=== PATIENT | female | born 1950 | race Caucasian/White ===

== ENCOUNTER → 2017-10-17 15:14 | Outpatient (CLI) | payer MEDICARE, OTHER, SELFPAY ==
--- NOTE | 2017-10-17 15:32 | XR_ITS ---
XR chest 2V HISTORY: Shortness of breath, weakness, congestion ITS.REASON: BRONCHITIS ORDERING PHYSICIAN: Lauren Nguyen PATIENT AGE: 67 years COMPARISON: 11/09/2015 FINDINGS: Right IJ Mediport catheter is present.. Normal heart size. Multiple areas of vertebral plasty in the lower thoracic and upper lumbar spine. Scattered nodular opacities are present in both upper and lower lobes including a 10 mm nodular opacity in the right upper lobe overlying the first rib and a 12 mm nodular opacity overlying the left upper lobe at the third rib region possible metastatic disease. Consider chest CT for further evaluation. Prior vertebroplasty at T12, T11, T10, T9, and L2 with wedge compression changes involving these vertebral bodies. There is a left humeral prosthesis present. IMPRESSION: 1. Scattered bilateral nodular opacities. May be related to metastatic disease. Recommend chest CT for further evaluation. 2. Multiple wedge compression changes of the thoracic lumbar spine status post prior vertebral plasty.
== END ==
PROVIDERS: PCP Nurse Practitioner Family; Visit Provider Nurse Practitioner Family
DX: J40 Bronchitis, not specified as acute or chronic (principal)
CPT/HCPCS: 71046

== ENCOUNTER → 2018-01-07 10:19 | Outpatient (CLI) | payer MEDICARE, OTHER, SELFPAY ==
--- NOTE | 2018-01-07 10:26 | XR_ITS ---
XR chest 2V HISTORY: Cough, multiple myeloma ITS.REASON: CHRONIC BRONCHITIS ORDERING PHYSICIAN: Nikki Alvarez MD PATIENT AGE: 67 years COMPARISON: 10/08/2017 FINDINGS: Unremarkable cardiovascular structures. Right IJ Mediport catheter remains in place. Nodular regions once again noted in the right upper lobe, left upper lobe, and left lower lung zone. This could be due to healing rib fractures or pulmonary metastasis may be better evaluated with CT. Multiple wedge compression changes once again noted involving the thoracic and lumbar spine status post multilevel kyphoplasty. No lobar consolidation or collapse. Prior left shoulder replacement. IMPRESSION: Overall no change from 10/17/2017 in the multiple bilateral nodular opacities and multiple kyphoplasty sites. No acute infiltrate evident.
== END ==
PROVIDERS: PCP Family Medicine; Visit Provider Family Medicine
DX: J42 Unspecified chronic bronchitis (principal)
CPT/HCPCS: 71046

== ENCOUNTER 2018-04-24 14:00 | Outpatient (RCR) | payer MEDICARE, OTHER, SELFPAY | END 2018-04-24 14:01 | disposition home or self-care (01) | LOC: PT 14:00 | PROVIDERS: Visit Provider Orthopaedic Surgery | DX: S42.402A Unspecified fracture of lower end of left humerus, initial encounter for closed fracture (principal) | CPT/HCPCS: 97110; 97163 ==

== ENCOUNTER → 2020-01-12 15:02 | Outpatient (CLI) | payer MEDICARE, OTHER, SELFPAY ==
[2020-01-12 15:06] LABS: Microscopic, Urine URINE MICROSCOPIC (MICROSCOPIC)
[2020-01-12 15:32] LABS: Appearance,Urine CLEAR (Clear); Bilirubin,Urine Negative (Negative); Blood, Urine Negative (Negative); Color,Urine YELLOW (Yellow); Glucose,Urine (UA) Negative (Negative); Ketones,Urine Negative (Negative); Leukocyte Esterase,Urine Negative (Negative); Nitrate,Urine Negative (Negative); Protein,Urine Negative (Negative); Specific Gravity, Urine 1.015 (1.005-1.030); Urobilinogen,Urine 0.2 EU/dl (0.2)
[2020-01-12 19:14] LABS: Bacteria,Urine Trace /lpf
== END ==
PROVIDERS: Visit Provider Family Medicine
DX: N39.0 Urinary tract infection, site not specified (principal); C90.01 Multiple myeloma in remission
CPT/HCPCS: 81001; 87086

== ENCOUNTER → 2023-01-11 13:21 | Outpatient (CLI) | payer MEDICARE, OTHER, SELFPAY ==
--- NOTE | 2023-01-11 13:52 | CT_ITS ---
FINAL REPORT TECHNIQUE: Axial images were obtained through the chest without contrast. CLINICAL HISTORY: sob, cough COMPARISON: None FINDINGS: There is a catheter present with its tip in the superior vena cava. There is streak artifact in some images secondary to a left shoulder prosthesis. There is a calcified granuloma in the posterior aspect of the left lower lobe. There is an ill-defined posterior right lower lobe airspace opacity present, best seen on image 24 of sequence 2, of uncertain significance. On high resolution images there is no evidence of bronchiectasis. The heart size is normal. There is no pericardial or pleural effusion. Limited images of the upper abdomen are unremarkable. No suspicious infiltrate or nodule identified. Mild scarring is present in the lung bases. IMPRESSION: No acute process. Reviewed, Interpreted and Dictated by Kris Santana MD Transcribed by Sonia Saldana Authenticated and [facility]
== END ==
PROVIDERS: PCP Family Medicine; Visit Provider Internal Medicine Pulmonary Disease
DX: R06.02 Shortness of breath (principal); J84.9 Interstitial pulmonary disease, unspecified
CPT/HCPCS: 71250; 93306; 94060; 94618; 94726; 94729

== ENCOUNTER → 2023-01-16 10:41 | Outpatient (CLI) | payer MEDICARE, OTHER, SELFPAY ==
[2023-01-16 11:11] LABS: Basophils # 0.1 K/mm3 (0-0.2); Basophils % 1.6 % (0.1-2.0); Eosinophils # 0.3 K/mm3 (0.0-0.4); Eosinophils % 4.5 % (0.1-12.0); Hematocrit 38.9 % (37.0-47.0); Hemoglobin 12.2 g/dL (12.2-16.2); Lymphocytes # 1.5 K/mm3 (0.7-4.5); Lymphocytes % 24.4 % (10-50); Mean Corpuscular HGB Conc 31.3 g/dL (31.8-35.4); Mean Corpuscular Hemoglobin 26.2 pg (27.0-31.2); Mean Corpuscular Volume 83.6 fl (81-99); Mean Platelet Volume 7.7 fl (7.4-10.4); Monocytes # 0.4 K/mm3 (0.1-1.0); Monocytes % 7.4 % (1.7-9.3); Neutrophils # 3.7 K/mm3 (1.8-7.8); Platelet Count 419 K/mm3 (142-424); Red Blood Count 4.66 M/mm3 (4.20-5.40); Red Cell Distribution Width 14.9 % (11.5-17.5); White Blood Count 5.9 K/mm3 (4.8-10.8)
[2023-01-18 16:13] LABS: Strongyloides IgG Antibody Negative (Negative)
[2023-01-22 16:05] LABS: D001-IgE D pteronyssinus <0.10 kU/L (Class 0); D002-IgE D farinae <0.10 kU/L (Class 0); E001-IgE Cat Dander <0.10 kU/L (Class 0); E005-IgE Dog Dander <0.10 kU/L (Class 0); E072-IgE Mouse Urine <0.10 kU/L (Class 0); G002-IgE Bermuda Grass <0.10 kU/L (Class 0); G006-IgE Timothy Grass <0.10 kU/L (Class 0); I006-IgE Cockroach, German <0.10 kU/L (Class 0); Immunoglobulin E, Total <2 IU/mL (6-495); M001-IgE Penicillium chrysogen <0.10 kU/L (Class 0); M002-IgE Cladosporium herbarum <0.10 kU/L (Class 0); M003-IgE Aspergillus fumigatus <0.10 kU/L (Class 0); M006-IgE Alternaria alternata <0.10 kU/L (Class 0); T001-IgE Maple/Box Elder <0.10 kU/L (Class 0); T003-IgE Common Silver Birch <0.10 kU/L (Class 0); T006-IgE Cedar, Mountain <0.10 kU/L (Class 0); T007-IgE Oak, White <0.10 kU/L (Class 0); T008-IgE Elm, American <0.10 kU/L (Class 0); T010-IgE Walnut <0.10 kU/L (Class 0); T011-IgE Maple Leaf Sycamore <0.10 kU/L (Class 0); T014-IgE Cottonwood <0.10 kU/L (Class 0); T015-IgE Ash, White <0.10 kU/L (Class 0); T022-IgE Pecan, Hickory <0.10 kU/L (Class 0); T070-IgE White Mulberry <0.10 kU/L (Class 0); W001-IgE Ragweed, Short <0.10 kU/L (Class 0); W011-IgE Thistle, Russian <0.10 kU/L (Class 0); W014-IgE Pigweed, Common <0.10 kU/L (Class 0); W018-IgE Sheep Sorrel <0.10 kU/L (Class 0)
[2023-03-04 09:21] LABS: Aspergillus fumigatus IgG 14.3
== END ==
PROVIDERS: PCP Family Medicine; Visit Provider Internal Medicine Pulmonary Disease
DX: J30.9 Allergic rhinitis, unspecified (principal); D72.19 Other eosinophilia
CPT/HCPCS: 36415; 82785; 85025; 86003; 86606; 86682

== ENCOUNTER → 2023-02-25 15:56 | Outpatient (CLI) | payer MEDICARE, OTHER, SELFPAY ==
--- NOTE | 2023-02-25 16:04 | CA_ITS ---
FINAL REPORT TECHNIQUE: Color Doppler, duplex Doppler and compression sonography of the left lower extremity deep venous systems was performed. CLINICAL HISTORY: Patient states her LLE has pain and edema x 1 day. Denies trauma. 81 mg ASA daily. Obesity. FINDINGS: There is no evidence of deep venous thrombosis from the level of the groin to the calf. The peroneal vein was not visualized due to body habitus and edema. The remaining veins are patent and compressible. IMPRESSION: No evidence of deep venous thrombosis left lower extremity. Reviewed, Interpreted and Dictated by Laci Luna III, MD Transcribed by Abby Harris Authenticated and [facility]
== END ==
PROVIDERS: PCP Family Medicine; Visit Provider Family Medicine
DX: R22.42 Localized swelling, mass and lump, left lower limb (principal)
CPT/HCPCS: 93971

== ENCOUNTER → 2023-05-15 11:55 | Outpatient (CLI) | payer MEDICARE, OTHER, SELFPAY ==
--- NOTE | 2023-05-15 12:01 | XR_ITS ---
FINAL REPORT CLINICAL HISTORY: PNM congestion some chest pain cough since 04/24 COMPARISON: 01/07/2018 FINDINGS: Two views of the chest were obtained. Left-sided chest port is present. The heart size and pulmonary vascularity are within normal limits. The mediastinum is normal. No acute pulmonary abnormality is identified. There is no pneumothorax. There is kyphoplasty at multiple levels in the thoracolumbar spine. Left shoulder arthroplasty is noted. IMPRESSION: No active cardiopulmonary disease. Reviewed, Interpreted and Dictated by Laci Luna III, MD Transcribed by Noelle Dailey Authenticated and [facility]
== END ==
PROVIDERS: PCP Family Medicine; Visit Provider Internal Medicine Pulmonary Disease
DX: R06.02 Shortness of breath (principal); B96.5 Pseudomonas (aeruginosa) (mallei) (pseudomallei) as the cause of diseases classified elsewhere
CPT/HCPCS: 71046; 87070; 87205

== ENCOUNTER → 2023-06-04 12:31 | Outpatient (CLI) | payer MEDICARE, OTHER, SELFPAY ==
--- NOTE | 2023-06-04 12:35 | XR_ITS ---
FINAL REPORT TECHNIQUE: Chest PA & Lateral CLINICAL HISTORY: SOB COMPARISON: 05/15/2023 FINDINGS: 2 views of the chest were performed. Mild cardiomegaly is present. The left sided catheter tip is in the superior vena cava unchanged from the prior exam. The mediastinum is within normal limits. There is no acute cardiopulmonary process. There are no pleural effusions. There is no pneumothorax. The bony thorax appears intact. A left shoulder prosthesis remains present. There is evidence of multiple kyphoplasties in the mid and lower thoracic spine. IMPRESSION: No acute cardiopulmonary process. Reviewed, Interpreted and Dictated by Kris Santana MD Transcribed by Sonia Saldana Authenticated and [facility]
== END ==
PROVIDERS: PCP Family Medicine; Visit Provider Internal Medicine Pulmonary Disease
DX: R06.02 Shortness of breath (principal)
CPT/HCPCS: 71046

== ENCOUNTER → 2023-06-05 14:42 | Outpatient (CLI) | payer MEDICARE, OTHER, SELFPAY | PROVIDERS: Visit Provider Internal Medicine Pulmonary Disease | DX: B96.89 Other specified bacterial agents as the cause of diseases classified elsewhere (principal); B37.9 Candidiasis, unspecified; J45.50 Severe persistent asthma, uncomplicated; R06.02 Shortness of breath; R05.3 Chronic cough | CPT/HCPCS: 87070; 87205 ==

== ENCOUNTER → 2023-06-06 06:44 | Outpatient (CLI) | payer MEDICARE, OTHER, SELFPAY ==
--- NOTE | 2023-06-06 06:47 | CT_ITS ---
FINAL REPORT TECHNIQUE: Axial images were obtained through the chest without contrast. CLINICAL HISTORY: non-resolving PNM COMPARISON: 01/11/2023 FINDINGS: Left upper anterior chest port with the tip in the SVC. There is streak artifact from left shoulder prosthesis. The heart size is normal. There is no pericardial or pleural effusion. There is mild pleural and parenchymal scarring in the medial lung bases. The lungs are clear. No suspicious infiltrate or nodule identified. Limited images of the upper abdomen are unremarkable. IMPRESSION: Mild pleural-parenchymal scarring in the medial lung bases. Lungs are otherwise clear. Reviewed, Interpreted and Dictated by Kris Santana MD Transcribed by Noelle Dailey Authenticated and . [facility]
== END ==
PROVIDERS: PCP Family Medicine; Visit Provider Internal Medicine Pulmonary Disease
DX: R91.8 Other nonspecific abnormal finding of lung field (principal)
CPT/HCPCS: 71250

== ENCOUNTER 2024-12-08 09:20 | Outpatient (CLI) | payer MEDICARE, OTHER, SELFPAY ==
--- OUTSIDE RECORDS SUMMARY | 2024-12-08 09:22 | XMS_ITS | Continuity of Care Document ---
Author Organization [place] [facility] [place] Address [address] [place] [address] Care Team Providers Care Skin Diving Teacher Name Role Phone THAD CANALES Primary Care Provider Assessment Encounter Date Assessment Date Assessment LastModified by Organization Details LastModified Time 11/11/2024 11/11/2024 Plan for imaging to assess for acute fracture, plan for walking shoe, pt has boot at home but may tolerate short boot/shoe better due to chronic swelling in her legs. Avoid walking barefoot, monitor for skin changes/incre ase in redness. Check uric acid to rule out gout. Consider podiatiry pending sx and imaging. Not available 11/11/2024 15:01:13 Plan of Treatment Reminders Order Date Submit Date Provider Last Modified By Organization Details Last Modified Time Details Appointments FOLLOW UP 30 2024 09:00A M Fernandez Jordan MD Not available Not available Not available Establish ed Visit 15 min 2024 09:00A Erwin COULTER NP Not available Not available Not available Lab vitamin D, 25-hydrox y, total, serum 2024 025 JOSE [facility] [address] [place], [address], 11/12/2024 07:33:58 uric acid, serum or plasma 2024 025 DAVIS [facility] ([place] [address] [place], [address], 11/12/2024 07:33:59 Referral None recorded. Procedures None recorded. Surgeries None recorded. Imaging XR, foot, 3 or more view 2024 025 rory 19 [facility] ([facility]), [address], [place], [address], 11/25/2024 08:30:03 Medication Orders None recorded. Patient TargetsNo targets recorded. Patient InstructionsNo instructions recorded. Reason for Referral None Reported. Results Created Date Observation Date Name Description Value Unit Range Abnormal Flag Note LastModifiedBy Organization Detail LastModifiedTime 11/12/19 25 11/11/2024 XR, foot, 3 or more view No observ ation record ed. In-House Imaging - [facility] [address], [place], [address], 11/12/2024 08:32:53 Result Notes None recorded. Problems Name Problem SNOMED Code Status Onset Date Resolution Date Notes Provider Name and Address Organization Details Recorded Time Pain in right foot 4020224476875 07 Active 2024 ANAHY LOONEY [facility], [facility] & [place] 5 10:15:14 Chronic intractabl e migraine without aura 0357995437777 05 Active 2021 Not Available [facility] 4 05:24:21 Restless legs 66753188 Active Not Available [facility] 4 05:24:21 Compressio n fracture Active Not Available [facility] 4 05:24:21 Exacerbati on of moderate persistent asthma 070951598 Active Not Available [facility] 4 05:24:22 Deficiency of macronutri ents 641757914 Active Not Available [facility] 4 05:24:21 Multiple myeloma in remission 69187017 Active Not Available [facility] 4 05:24:22 Nocturia 134788909 Active Not Available [facility] 4 05:24:21 Phleboscle rosis 528326882 Active Not Available [facility] 4 05:24:21 Increased frequency of urination 427593013 Active Not Available [facility] 4 05:24:21 Selective immunoglob ulin E deficiency 289193598 Active Not Available [facility] 4 05:24:21 Gallstone 731707051 Active Not Available [facility] 4 05:24:21 Chronic kidney disease stage 3 506414718 Active Not Available [facility] 4 05:24:22 Neuropathy 534453785 Active Not Available [facility] 4 05:24:22 Asthma 284656526 Active Not Available [facility] 4 05:24:21 Unsteady when walking 46325026 Active Not Available [facility] 4 05:24:21 Hypophosph atemia 8962044 Active Not Available [facility] 4 05:24:22 Chronic pain 68992868 Active Not Available [facility] 4 05:24:22 Allergic rhinitis caused by pollen 53035661 Active Not Available [facility] 4 05:24:21 Incisional hernia 319421681 Active Not Available [facility] 4 05:24:21 Bronchitis 39614063 Active Not Available [facility] 4 05:24:21 Pain in back following surgical procedure 024748937 Active Not Available [facility] 4 05:24:21 Lymphedema 174952351 Active Not Available [facility] 4 05:24:21 Immunoglob ulin G deficiency 3218888518953 6 Active Not Available [facility] 4 05:24:21 Mixed hyperlipid emia 053907012 Active Not Available [facility] 4 05:24:21 Urge incontinen ce of urine 11225076 Active Not Available [facility] 4 05:24:22 Rectovagin al fistula 50940565 Active Not Available [facility] 4 05:24:22 Dysphagia 18174555 Active Not Available [facility] 4 05:24:22 Exacerbati on of severe persistent asthma 789989058 Active Not Available [facility] 4 05:24:22 Vitamin D deficiency 79764611 Active Not Available [facility] 4 05:24:22 Disorder of cardiovasc ular system 82319403 Active Not Available [facility] 4 05:24:22 Cholelithi asis without obstructio n 33910571 Active Not Available [facility] 4 05:24:22 Inflammato ry disease of mucous membrane 51201393 Active Not Available [facility] 4 05:24:22 Chronic bronchitis 44449615 Active Not Available [facility] 4 05:24:22 Respirator y tract infection 726771444 Active Not Available [facility] 4 05:24:21 Colostomy present 090785337 Active Not Available [facility] 4 05:24:21 Environmen krystal allergy 044983588 Active Not Available [facility] 4 05:24:22 Colovagina l fistula 400877268 Active Not Available [facility] 4 05:24:21 Total urinary incontinen ce 506673138 Active Not Available [facility] 4 05:24:21 Multiple myeloma 596750392 Active Not Available [facility] 4 05:24:21 Edema 571462850 Active Not Available [facility] 4 05:24:21 Vesicocoli c fistula 01043193 Active Not Available [facility] 4 05:24:21 Hypocalcem ia 6495022 Active Not Available [facility] 4 05:24:22 Tension-ty pe headache 527741191 Active Not Available [facility] 4 05:24:22 Gastroesop hageal reflux disease 521297457 Active Not Available [facility] 4 05:24:21 Uncomplica sacha severe persistent asthma 991233331 Active Not Available [facility] 4 05:24:22 Acute exacerbati on of chronic obstructiv e pulmonary disease 355211104 Active Not Available [facility] 4 05:24:21 Chronic renal failure 76888767 Active Not Available [facility] 4 05:24:22 Hyperlipid emia 17963311 Active Not Available [facility] 4 05:24:22 Hypokalemi a 86522394 Active Not Available [facility] 4 05:24:22 Recurrent urinary tract infection 712617484 Active Not Available [facility] 4 05:24:21 Chronic kidney disease 558279633 Active Not Available [facility] 4 05:24:22 Screening for malignant neoplasm of breast Active Not Available [facility] 4 05:24:21 Right bundle branch block 37471417 Active Not Available [facility] 4 05:24:22 Bilateral hand weakness 1905673289893 9104 Active 2022 Not Available [facility] 4 05:24:21 Laryngopha ryngeal reflux 426134893 Active 2022 Not Available [facility] 4 05:24:22 Severe persistent asthma 516062806 Active 2022 Not Available [facility] 4 05:24:22 Chronic cough 51963811 Active 2022 Not Available [facility] 4 05:24:22 Acute nontraumat ic kidney injury 0671040266486 03 Active Not Available [facility] 4 05:24:21 Nausea and vomiting 73225738 Active Not Available [facility] 4 05:24:21 Patient immunosupp ressed 979351106 Active Not Available [facility] 4 05:24:22 Community acquired pneumonia 916134197 Active Not Available [facility] 4 05:24:22 Urinary tract infectious disease 69221050 Active Not Available [facility] 4 05:24:22 Obstructiv e sleep apnea syndrome 18737077 Active 2023 Olivia Meyer, DO [address] , [place], [address] , [facility] & [place] 4 09:29:47 Notes:Some problems listed i n Documents: #[id number], #[id number] could not be added to this patient's chart. Please review these documents and add these problems to the patient's chart manually as needed. Problem Notes None recorded. Procedures Surgical History Date Name Laterality Status Provider Name and Address Organization Details Recorded Time 11/04 esophagogastroduodenoscopy completed Alanna Miller [place] [facility] [place] [facility] [place] 5 14:46:48 11/04 Colonoscopy completed Karine Rothamer [place] [facility] [place] [facility] [place] 5 14:46:57 05/18 completed Madison Wills [place] [facility] [place] [facility] [place] 5 08:22:37 05/18 Most Recent Mammogram completed Karine [place] [facility] [place] [facility] [place] 5 10:16:13 02/08 polysomnography completed Karine [place] [facility] [place] [facility] [place] 5 10:16:45 12/05 Most Recent Bone Density completed Karine [place]amer [place] [facility] [place] [facility] [place] 5 10:16:10 02/20 Cryosurgery completed Thad Canales MD [address], [place], [address] , [place] [facility] [place] [facility] [place] 3 11:13:28 01/23 cholecystectomy completed Sonal Moctezuma [place] [facility] [place] [facility] [place] 3 08:08:43 01/23 repair of incisional hernia completed Yaa [place] [facility] [place] [facility] [place] 3 08:08:21 07/22 Cholecystectomy completed Madison Wills [place] [facility] [place] [facility] [place] 5 08:22:47 12/15 Colonoscopy completed Karine Schaeferamer [place] [facility] [place] [facility] [place] 5 10:23:58 12/05 Date of Last Colonoscopy completed Madison Wills [place] [facility] [place] [facility] [place] 5 08:22:37 05/03 procedure on knee completed Olivia Meyer DO [address], [place], [address] , [place] [facility] [place] [facility] [place] 3 08:57:05 07/22 Other completed Madison Wills [place] [facility] [place] [facility] [place] 5 08:22:47 07/06 insertion of implantable venous access port completed DO [address], [place], [address] , [place] [facility] [place] [facility] [place] 3 08:58:24 07/06 removal of implantable venous access port completed DO [address], [place], [address] , [place] [facility] [place] [facility] [place] 3 08:58:40 05/22 excision of part of colon and excision of terminal ileum with ileocolic anastomosis completed DO [address], [place], [address] , [place] [facility] [place] [facility] [place] 3 08:56:32 12/21 repair of rectovaginal fistula completed DO [address], [place], [address] , [place] [facility] & [place] 3 08:55:42 07/22 kyphoplasty of fracture of spine using fluoroscopic guidance completed DO [address], [place], [address] , [place] [facility] [place] [facility] [place] 3 10:34:38 07/22 Other completed Madison Wills [place] [facility] [place] [facility] [place] 5 08:22:47 02/19 bronchoscopy completed DO [address], [place], [address] , [place] [facility] [place] [facility] [place] 3 08:57:20 02/17 esophagogastroduodenoscopy completed Alanna Miller [place] [facility] & [place] 5 10:21:54 07/22 procedure on elbow completed Olivia Meyer DO [address], [place], [address] , [place] [facility] [place] [facility] [place] 3 08:55:21 01/19 bone marrow biopsy, needle or trocar completed Karineabel Joy [place] [facility] [place] [facility] [place] 5 10:22:33 07/22 insertion of implantable venous access port completed Olivia Meyer DO [address], [place], [address] , [place] [facility] [place] [facility] [place] 3 08:58:11 07/22 repair of shoulder completed Sonal Rhianna [place] [facility] [place] [facility] [place] 3 08:06:30 07/22 Knee Replacement completed Sonal Rhianna [place] [facility] [place] [facility] [place] 3 08:05:35 07/22 Knee Replacement completed Sonal Rhianna [place] [facility] [place] [facility] [place] 3 08:05:25 07/22 procedure on wrist completed Sonal [place]ianna [place] [facility] [place] [facility] [place] 3 08:05:02 07/22 Hysterectomy completed Sonal [place]ianna [place] [facility] [place] [facility] [place] 3 08:04:23 07/22 lumpectomy of breast completed Sonal [place]ianna [place] [facility] [place] [facility] [place] 3 08:04:05 hernia repair completed Delmi Weinstein [place] [facility] [place] 3 11:09:01 section completed Sonal [place]ianna [place] [facility] [place] 3 08:03:33 Colostomy completed Sonal Rhianna [place] [facility] [place] [facility] [place] 3 08:11:02 Imaging Results None recorded. Procedure Notes None recorded. Medical Equipment None Reported. Allergies Allergen ID Allergen Name Allergen Category Reaction Reaction Severity Criticality Documentation Date Start Date Code Code System Note Provider Name and Address Organization Details Recorded Time 17447 Substance with sulfonami de structure and antibacte rial mechanism of action (substanc e) medicatio n dizziness hives rash Not available Not available Not available Not available 04/11/2022 [id number] SNOMED criti calit y - mediu m Karine Joy null, [place] [facility] [place] [facility] [place] 3 07:13:57 2419 meperidin e medicatio n hives other Not available Not available low 03/29/2022 6754 RxNorm also rose d Demer ol; hypot ensio n, Karine Joy null, [place] [facility] [place] [facility] [place] 5 10:29:07 69116 honey bee venom environme nt Not available Not available low 05/01/2023 60068 7 RxNorm Karine Joy null, [place] [facility] [place] [facility] [place] 4 10:09:38 Medications Name Sig Start Date Stop Date Status Note LastModified by Organization Details LastModified Time Magic Mouthwash w/ Nystatin 5-10 mL doses every four to six hours 09/18 completed Not Available Not Available Not Available Magic Mouthwash 5-10 mL doses every four to six hours 2023 active Not Available Not Available Not Avai lable Magic Mouthwash 5-10 mL every 4-6 hours as needed for mouth pain 12/12 completed Not Available Not Available Not Available Magic Mouthwash 5-10 mL doses every four to six hours 09/02 completed Not Available Not Available Not Available Magic Mouthwash Take 5-10ml every 4 to 6 hours as needed. 2022 active Not Available Not Available Not Avai lable Magic Mouthwash 5-10 mL doses every four to six hours 2022 active Not Available Not Available Not Avai lable Magic Mouthwash Shake well before using. Swish, gargle, and spit 1 to 2 teaspoons every 4 to 6 hours, as needed for pain 04/24 completed Not Available Not Available Not Available Magic Mouthwash 5-10 mL doses every four to six hours 01/27 completed Not Available Not Available Not Available Magic Mouthwash Take 5-10 ml every 4 to 6 hours as needed 2022 active Not Available Not Available Not Avai lable Magic Mouthwash Shake well before using. Swish, gargle, and spit 1 to 2 teaspoons every 4 to 6 hours, as needed for pain 2022 active Not Available Not Available Not Avai lable amoxicillin 500 mg capsule TAKE 1 CAPSULE BY MOUTH THREE TIMES DAILY 08/05 completed Not Available Not Available Not Available fluconazole 100 mg tablet TAKE 1 TABLET BY MOUTH ONCE DAILY DIRECTED FOR 2 DAYS 10/01 completed Not Available Not Available Not Available methocarbam ol 500 mg tablet TAKE 1 TABLET BY MOUTH EVERY 6 HOURS NEEDED FOR MUSCLE SPASM FOR PAIN 08/29 completed Not Available Not Available Not Available acetylcyste ine 200 mg/mL (20 %) solution INHALE 1 ML EVERY DAY DIRECTED active Not Available Not Available No t Available albuterol sulfate 0.63 mg/3 mL solution for nebulizatio n USE 1 VIAL IN NEBULIZER EVERY 4 HOURS NEEDED active Not Available Not Available No t Available nystatin 100,000 unit/mL oral suspension Take 5 mL 4 times a day by oral route for 14 days. 04/27 completed Not Available Not Available Not Available venlafaxine ER 37.5 mg capsule,ext ended release 24 hr TAKE 1 CAPSULE BY MOUTH ONCE DAILY DIRECTED FOR 30 DAYS active Not Available Not Available No t Available prednisone 10 mg tablet TAKE 2 TABLETS BY MOUTH DAILY FOR THE NEXT FEW WEEKS UNTIL ASTHMA STABLE AND THEN WEAN DOWN TO 10MG AND HOLD ON THIS DOSE 05/22 completed Not Available Not Available Not Available doxycycline hyclate 100 mg capsule TAKE 1 CAPSULE BY MOUTH TWICE DAILY 08/07 completed Not Available Not Available Not Available metoclopram julienne 5 mg/mL injection solution 10 mg by injection route. 06/20 completed Not Available Not Available Not Available ropinirole 1 mg tablet Take 1 tablet twice a day by oral route for 90 days. active Not Available Not Available No t Available ipratropium 0.5 mg-albutero l 3 mg (2.5 mg base)/3 mL nebulizatio n soln USE 3 ML IN NEBULIZER EVERY 6 HOURS NEEDED FOR SHORTNESS OF BREATH FOR WHEEZING active Not Available Not Available No t Available tizanidine 2 mg tablet 08/05 completed Not Available Not Available Not Available albuterol sulfate 2.5 mg/3 mL (0.083 %) solution for nebulizatio n INHALE 1 VIAL VIA NEBULIZER EVERY 4 HOURS 01/05 completed Not Available Not Available Not Available hydrocortis one-pramoxi ne 2.5 %-1 % rectal cream active Not Available Not Available Not Available loperamide 2 mg capsule TAKE 1 CAPSULE BY MOUTH TWICE DAILY 08/05 completed Not Available Not Available Not Available cetirizine 10 mg tablet 10 mg by oral route. active Not Available Not Available No t Available azithromyci n 250 mg tablet TAKE 2 TABLETS BY MOUTH ON DAY 1, AND THEN TAKE 1 TABLET BY MOUTH ONCE A DAY ON DAY 2 THROUGH DAY 5 05/16 completed Not Available Not Available Not Available Lidocaine Viscous 2 % mucosal solution MIX EQUAL PARTS OF MAALOX, BENDARYL, AND LIDOCAINE AND APPLY 5 TO 10 ML EVERY 4 TO 6 HOURS NEEDED 02/13 completed Not Available Not Available Not Available benzonatate 200 mg capsule TAKE 1 CAPSULE BY MOUTH EVERY 8 HOURS NEEDED FOR 7 DAYS 08/29 completed Not Available Not Available Not Available sucralfate 100 mg/mL oral suspension Take 10 mL 4 times a day by oral route as directed for 30 days. 08/29 completed Not Available Not Available Not Available ondansetron HCl 8 mg tablet TAKE 1 TABLET BY MOUTH TWICE DAILY active Not Available Not Available No t Available sucralfate 1 gram tablet TAKE 1 TABLET BY MOUTH 4 TIMES DAILY 2024 active Not Available Not Available Not Avai lable ondansetron HCl 4 mg tablet 09/18 completed Not Available Not Available Not Available famotidine 40 mg tablet Take 1 tablet every day by oral route for 90 days. active Not Available Not Available No t Available prednisone 20 mg tablet Take 2 tablets every day by oral route as directed for 3 days. 12/12 completed Not Available Not Available Not Available Compazine 10 mg tablet Take 1 tablet every 8 hours by oral route for 30 days. 09/02 completed Not Available Not Available Not Available fluorouraci l 5 % topical cream 08/05 completed Not Available Not Available Not Available prednisone 5 mg tablet TAKE 12 TABLETS BY MOUTH ONCE DAILY FOR 5 DAYS THEN TAPER BY 5MG (1 TAB) EVERY 2 DAYS TILL PATIENT GET TO 10MG AND THEN HOLD DIRECTED 05/09 completed Not Available Not Available Not Available sodium chloride 0.45 % intravenous solution 1000 mL by intraven. route. 06/22 completed Not Available Not Available Not Available Pyridium 200 mg tablet Take 1 tablet 3 times a day by oral route for 2 days. 08/29 completed Not Available Not Available Not Available clindamycin HCl 150 mg capsule TAKE 1 CAPSULE BY MOUTH 4 TIMES DAILY FOR 7 DAYS 07/02 completed Not Available Not Available Not Available Diflucan 150 mg tablet Take 1 tablet every day by oral route as directed for 2 days. 09/18 completed Not Available Not Available Not Available cyanocobala min (vit B-12) 1,000 mcg tablet Take 1 tablet every day by oral route. active Not Available Not Available No t Available penicillin V potassium 500 mg tablet 01/05 completed Not Available Not Available Not Available meclizine 12.5 mg tablet TAKE 2 TABLETS BY MOUTH THREE TIMES DAILY NEEDED 08/05 completed Not Available Not Available Not Available Space Chamber USE DIRECTED active Not Available Not Available No t Available cephalexin HCl 500 mg tablet Take 1 {tablet} twice a day by oral route. 06/11 completed Not Available Not Available Not Available aspirin 81 mg tablet,félix yed release 81 mg by oral route. 06/22 completed Not Available Not Available Not Available acetaminoph en 500 mg tablet 1000 mg by oral route. 06/22 completed Not Available Not Available Not Available butalbital- acetaminoph en-caffeine 50 mg-325 mg-40 mg tablet TAKE 1 TABLET BY MOUTH EVERY 4 TO 6 HOURS NEEDED FOR 30 DAYS 09/18 completed Not Available Not Available Not Available ondansetron 8 mg disintegrat ing tablet DISSOLVE 1 TABLET IN MOUTH EVERY 8 TO 12 HOURS NEEDED 06/11 completed Not Available Not Available Not Available dronabinol 2.5 mg capsule Take 2.5 mg by oral route. 09/02 completed Not Available Not Available Not Available betamethaso ne acetate and sodium phos 6 mg/mL suspension for injection Take 9 mg every day by injection route as directed for 1 day. 05/22 completed Not Available Not Available Not Available calcium 600 mg (as calcium carbonate 1,500 mg) tablet Take 1 {tablet_w ith_meals } by oral route. 10/03 completed Not Available Not Available Not Available ceftriaxone 1 gram solution for injection Take 1 g by injection route. 01/05 completed Not Available Not Available Not Available methenamine hippurate 1 gram tablet 07/30 completed Not Available Not Available Not Available hydrocortis one-pramoxi ne 2.5 %-1 % topical cream Apply 1 applicati on 3 times a day by topical route for 90 days. 08/29 completed Not Available Not Available Not Available potassium chloride ER 20 mEq tablet,exte nded release(par t/cryst) TAKE 1 BY MOUTH ONCE DAILY WITH FOOD active Not Available Not Available No t Available famotidine 20 mg tablet 40 mg by oral route. 06/22 completed Not Available Not Available Not Available prednisolon e acetate 1 % eye drops,suspe nsion INSTILL 1 DROP 4 TIMES DAILY INTO AFFECTED EYE FOR 4 DAYS, THEN USE TWICE DAILY FOR 4 DAYS, THEN STOP 09/18 completed Not Available Not Available Not Available magnesium oxide 400 mg (241.3 mg magnesium) tablet TAKE 1 TABLET BY MOUTH ONCE DAILY DIRECTED active Not Available Not Available No t Available metoclopram julienne 5 mg tablet 09/02 completed Not Available Not Available Not Available ropinirole 0.25 mg tablet Take 0.5 mg by oral route. 08/05 completed Not Available Not Available Not Available baclofen 10 mg tablet TAKE 1 TABLET EVERY 8 HOURS NEEDED FOR 10 DAYS 10/03 completed Not Available Not Available Not Available doxycycline monohydrate 100 mg capsule 08/07 completed Not Available Not Available Not Available cephalexin 500 mg capsule TAKE 1 CAPSULE BY MOUTH TWICE DAILY FOR 7 DAYS 04/27 completed Not Available Not Available Not Available pantoprazol e 40 mg tablet,félix yed release Take 1 tablet by mouth twice daily 09/02 completed Not Available Not Available Not Available ferrous sulfate 325 mg (65 mg iron) tablet 65 mg by oral route. active Not Available Not Available No t Available nystatin 100,000 unit/gram topical cream APPLY CREAM TOPICALLY TO AFFECTED AREA TWICE DAILY active Not Available Not Available No t Available promethazin e 25 mg/mL injection solution Take 25 mg by injection route. 11/27 completed Not Available Not Available Not Available lidocaine 5 % topical patch APPLY ONE PATCH TOPICALLY TO CLEAN, DRY SKIN. LEAVE ON FOR 12 HOURS THEN REMOVE. MUST WAIT AT LEAST 12 HOURS BEFORE APPLYING PATCH(ES) AGAIN. active Not Available Not Available No t Available promethazin e 25 mg tablet TAKE 1 TABLET BY MOUTH EVERY 12 HOURS NEEDED 11/11 completed Not Available Not Available Not Available ursodiol 250 mg tablet TAKE 1 TABLET BY MOUTH TWICE DAILY active Not Available Not Available No t Available azithromyci n 500 mg intravenous solution 500 mg by intraven. route. 06/22 completed Not Available Not Available Not Available gabapentin 300 mg capsule TAKE 2 CAPSULES BY MOUTH EVERY 8 HOURS NEEDED active Not Available Not Available No t Available cephalexin 500 mg tablet Take 1 tablet twice a day by oral route as directed for 10 days. 03/27 completed Not Available Not Available Not Available montelukast 10 mg tablet TAKE 1 TABLET BY MOUTH IN THE EVENING active Not Available Not Available No t Available aspirin 81 mg tablet Take 1 tablet every day by oral route. active Not Available Not Available No t Available mupirocin 2 % topical ointment APPLY A SMALL AMOUNT TO THE AFFECTED AREA 3 TIMES A DAY 11/27 completed Not Available Not Available Not Available furosemide 20 mg tablet TAKE 1 TABLET BY MOUTH EVERY 12 HOURS NEEDED FOR SWELLING active Not Available Not Available No t Available sodium chloride 0.9 % intravenous solution 1000 mL by intraven. route. 06/21 completed Not Available Not Available Not Available nystatin 100,000 unit/gram topical powder 08/05 completed Not Available Not Available Not Available azelastine 137 mcg (0.1 %) nasal spray USE 2 SPRAY(S) IN EACH NOSTRIL AT BEDTIME NIGHTLY active Not Available Not Available No t Available fentanyl 25 mcg/hr transdermal patch Apply 1 patch every 72 hours by transderm al route for 30 days. 2024 active Not Available Not Available Not Avai lable levofloxaci n 500 mg tablet TAKE 1 TABLET BY MOUTH ONCE DAILY FOR 7 DAYS 09/18 completed Not Available Not Available Not Available estradiol 0.01% (0.1 mg/gram) vaginal cream APPLY A PEA-SIZED AMOUNT TO THE VAGINA NIGHTLY 10/03 completed Not Available Not Available Not Available levofloxaci n 750 mg tablet TAKE 1 TABLET BY MOUTH ONCE DAILY FOR 14 DAYS 07/24 completed Not Available Not Available Not Available scopolamine 1 mg over 3 days transdermal patch APPLY 1 PATCH TOPICALLY EVERY 72 HOURS 12/12 completed Not Available Not Available Not Available methylpredn isolone 4 mg tablets in a dose pack TAKE BY MOUTH DIRECTED ON INSIDE OF PACKAGE 04/26 completed Not Available Not Available Not Available ondansetron 4 mg disintegrat ing tablet 4 mg by oral route. 06/26 completed Not Available Not Available Not Available cefdinir 300 mg capsule Take 300 mg by oral route. 08/07 completed Not Available Not Available Not Available fluticasone propionate 50 mcg/actuati on nasal spray,suspe nsion [place] 2 sprs by nasal route. 09/02 completed Not Available Not Available Not Available doxycycline hyclate 100 mg tablet Take 100 mg by oral route. 08/07 completed Not Available Not Available Not Available amoxicillin 500 mg-potassiu m clavulanate 125 mg tablet TAKE 1 TABLET BY MOUTH EVERY 12 HOURS FOR 5 DAYS 02/13 completed Not Available Not Available Not Available Ventolin HFA 90 mcg/actuati on aerosol inhaler 2 inhalatio ns by inhalatio n route. active Not Available Not Available No t Available metoprolol tartrate 5 mg/5 mL intravenous solution 5 mg by intraven. route. 06/22 completed Not Available Not Available Not Available oxycodone 5 mg tablet 10 mg by oral route. 06/22 completed Not Available Not Available Not Available Oyster Shell Calcium-500 500 mg (as carbonate 1,250 mg) tablet 500 mg by oral route. 06/22 completed Not Available Not Available Not Available enoxaparin 30 mg/0.3 mL subcutaneou s syringe 30 mg by sub-q route. 06/22 completed Not Available Not Available Not Available enoxaparin 40 mg/0.4 mL subcutaneou s syringe 40 mg by sub-q route. 06/20 completed Not Available Not Available Not Available Mucinex 600 mg tablet, extended release 600 mg by oral route. active Not Available Not Available No t Available cyclobenzap rine 5 mg tablet Take by oral route as needed. 04/26 completed Not Available Not Available Not Available cyclosporin e 0.05 % eye drops in a dropperette INSTILL 1 DROP INTO AFFECTED EYE(S) EVERY 12 HOURS active Not Available Not Available No t Available cholestyram ine (with sugar) 4 gram oral powder Take 4 g by oral route. 09/18 completed Not Available Not Available Not Available cholestyram ine (with sugar) 4 gram powder for susp in a packet 4 g by oral route. active Not Available Not Available No t Available bupropion HCl XL 300 mg 24 hr tablet, extended release TAKE 1 TABLET BY MOUTH IN THE MORNING active Not Available Not Available No t Available Mag-Al Plus Extra Strength 400 mg-400 mg-40 mg/5 mL oral suspension 30 mL by oral route. 06/22 completed Not Available Not Available Not Available nitrofurant oin monohydrate /macrocryst als 100 mg capsule TAKE 1 CAPSULE BY MOUTH EVERY 12 HOURS FOR 10 DAYS 11/11 completed Not Available Not Available Not Available duloxetine 30 mg capsule,del ayed release 01/05 completed Not Available Not Available Not Available fentanyl 12 mcg/hr transdermal patch Apply 1 patch every 72 hours by transderm al route for 30 days. 2024 active Not Available Not Available Not Avai lable chlorhexidi ne gluconate 0.12 % mouthwash RINSE WITH 15ML TWICE DAILY active Not Available Not Available No t Available sodium chloride 0.9 % intravenous piggyback 50 mL by intraven. route. 06/21 completed Not Available Not Available Not Available Flonase 09/02 completed Not Available Not Available Not Available calcium citrate 1 qd active Not Available Not Available Not Available Imodium active Not Available Not Avail able Not Available ondansetron HCl (PF) 4 mg/2 mL injection solution 4 mg by injection route. 06/19 completed Not Available Not Available Not Available ferrous sulfate 324 mg (65 mg iron) tablet,félix yed release 324 mg by oral route. 06/22 completed Not Available Not Available Not Available BD PosiFlush Normal Saline 0.9 % injection syringe 10 mL by injection route. 06/22 completed Not Available Not Available Not Available oxycodone 10 mg tablet TAKE 1 TABLET BY MOUTH EVERY 6 TO 8 HOURS NEEDED active Not Available Not Available No t Available Alvesco 80 mcg/actuati on aerosol inhaler INHALE 2 PUFFS EVERY 12 HOURS 12/01 completed Not Available Not Available Not Available Alvesco 160 mcg/actuati on aerosol inhaler INHALE 2 TO 3 PUFFS TWICE DAILY active Not Available Not Available No t Available cholecalcif sunshine (vitamin D3) 125 mcg (5,000 unit) tablet 125 microgram s by oral route. active Not Available Not Available No t Available Creon 24,000-76,0 00-120,000 unit capsule,del ayed release 1 capsule by oral route. 06/22 completed Not Available Not Available Not Available B12 08/05 completed Not Available Not Available Not Available Xifaxan 550 mg tablet TAKE 1 TABLET BY MOUTH THREE TIMES DAILY 07/30 completed Not Available Not Available Not Available HealthyLax 17 gram oral powder packet 17 g by oral route. 06/22 completed Not Available Not Available Not Available Xgeva 120 mg/1.7 mL (70 mg/mL) subcutaneou s solution 1.7 mL by sub-q route. active Not Available Not Available No t Available Revlimid 2.5 mg capsule TAKE 1 CAPSULE BY MOUTH EVERY OTHER DAY FOR 28 DAYS 2024 active Not Available Not Available Not Avai lable azelastine 137 mcg-flutica sone 50 mcg/spray nasal spray [place] 1 spr by nasal route. 09/18 completed Not Available Not Available Not Available potassium chloride ER 20 mEq tablet,exte nded release TAKE 1 TABLET BY MOUTH ONCE DAILY DIRECTED active Not Available Not Available No t Available oxycodone ER 10 mg tablet,alina h resistant,e xtended release 12 hr TAKE 1 TABLET BY MOUTH EVERY 6 HOURS NEEDED FOR MODRATE PAIN SCALE 4-6 02/13 completed Not Available Not Available Not Available fentanyl 37.5 mcg/hour transdermal patch Apply 1 patch every 72 hours by transderm al route for 30 days. 12/01 completed Not Available Not Available Not Available naloxone 4 mg/actuatio n nasal spray CALL 911. DO NOT PRIME. ADMINISTE R A SINGLE SPRAY IN NOSTRIL. IF NO TO MINIMAL RESPONSE AFTER 2-5 MINUTES, AN ADDITIONA L DOSE MAY BE GIVEN IN THE ALTERNATE NOSTRIL, THEN NEEDED (IF DOSES ARE AVAILABLE ) EVERY 2-5 MINUTES active Not Available Not Available No t Available Procto-Med HC 2.5 % topical cream perineal applicator INSERT CREAM RECTALLY TO AFFECTED AREA TWICE DAILY FOR 10 DAYS 06/11 completed Not Available Not Available Not Available magnesium 70 mg (magnesium chloride) tablet,félix yed release Take 1 tablet by oral route. 11/11 completed Not Available Not Available Not Available prednisolon e 10 mg tablet Take every day by oral route. 02/13 completed Not Available Not Available Not Available Zenpep 25,000 unit-79,000 unit-105,00 0 unit capsule,del ayed release 01/05 completed Not Available Not Available Not Available lidocaine 5 % topical patch-adhes rigo silicone combo pack 07/02 completed Not Available Not Available Not Available Ubrelvy 100 mg tablet TAKE 1 TABLET BY MOUTH AT ONSET OF HEADACHE, MAY REPEAT THE DOSE IN 2 HOURS IF NEEDED (MAX OF 2 DOSES IN 24 HOURS) active Not Available Not Available No t Available Reyvow 100 mg tablet TAKE 1 TABLET BY MOUTH ONCE DAILY NEEDED 09/18 completed Not Available Not Available Not Available Breztri Aerosphere 160 mcg-9mcg-4. 8mcg/actuat ion HFA aerosol inhaler INHALE 2 PUFFS BY MOUTH TWICE DAILY active Not Available Not Available No t Available Trelegy Ellipta 200 mcg-62.5 mcg-25 mcg powder for inhalation 1 inhalatio n by inhalatio n route. 06/22 completed Not Available Not Available Not Available Gemtesa 75 mg tablet TAKE 1 TABLET BY MOUTH ONCE DAILY DIRECTED 2023 active Not Available Not Available Not Avai lable [place]azalore 81 mg capsule 81 mg by oral route. 04/26 completed Not Available Not Available Not Available Qulipta 60 mg tablet TAKE 1 TABLET BY MOUTH ONCE DAILY active Not Available Not Available No t Available Paxlovid 300 mg (150 mg x 2)-100 mg tablets in a dose pack Take 1 dose pk by oral route as directed. 04/26 completed Not Available Not Available Not Available Tezspire 210 mg/1.91 mL (110 mg/mL) subcutaneou s syringe Inject 1 syr by sub-q route. 08/14 completed Not Available Not Available Not Available Tezspire 210 mg/1.91 mL (110 mg/mL) subcutaneou s pen injector Inject 210 mg every 4 weeks by subcutane ous route as directed for 30 days. active Not Available Not Available No t Available Veozah 45 mg tablet Take by oral route for 30 days. 10/27 completed Not Available Not Available Not Available Airsupra 90 mcg-80 mcg/actuati on HFA aerosol inhaler INHALE 2 PUFFS EVERY 6 HOURS NEEDED FOR SHORTNESS OF BREATH AND WHEEZING active Not Available Not Available No t Available Voquezna 20 mg tablet TAKE 1 TABLET BY MOUTH ONCE DAILY active Not Available Not Available No t Available Voquezna 10 mg tablet Take 1 tablet every day by oral route for 90 days. 11/11 completed Not Available Not Available Not Available Vitals Date Recorded Body height Body mass index (BMI) Body weight Body temperature Oxygen saturation Oxygen saturation in Arterial blood by Pulse oximetry Heart rate Systolic blood pressure Diastolic blood pressure Provider Name and Address Organization Details Last Updated DateTime 5 157.48 cm 32.2 kg/m2 96135.2 6 g 98.3 [degF] 99 % 99 % 80 /min 134 mm[Hg] 82 mm[Hg] [facility] [place] 5 09:01:05 Social History Question Answer Notes LastModified by Organizat ion Details LastModified Time Tobacco Smoking Status Never Smoker Not Available [facility] 08/19/2023 11:22:25 Do You Have An Advance Directive? Yes CHART_MERGE Information not available 08/19/2023 Are You Blind Or Do You Have Difficulty Seeing? Yes Has Glasses CHART_MERGE Information not available 08/19/2023 Is Blood Transfusion Acceptable In An Emergency? Yes Information not available 11/28/2023 What Is Your Level Of Caffeine Consumption? Occasional CHART_MERGE Information not available 08/19/2023 In The 14 Days Before Symptom Onset, Have You Had Close Contact With A Laboratory-confir med COVID-19 While That Case Was Ill? No CHART_MERGE Information not available 08/19/2023 In The 14 Days Before Symptom Onset, Have You Had Close Contact With A Person Who Is Under Investigation For COVID-19 While That Person Was Ill? No CHART_MERGE Information not available 08/19/2023 Have You Been To An Area Known To Be High Risk For COVID-19? No CHART_MERGE Information not available 08/19/2023 Are You Deaf Or Do You Have Serious Difficulty Hearing? No CHART_MERGE Information not available 08/19/2023 Have You Processed Blood Or Body Fluids From An Ebola Virus Disease Patient Without Appropriate PPE? No CHART_MERGE Information not available 08/19/2023 Do You Reside In Or Have You Traveled To An Area Where Ebola Virus Transmission Is Active? No CHART_MERGE Information not available 08/19/2023 How Many Days Of Moderate To Strenuous Exercise, Like A Brisk Walk, Did You Do In The Last 7 Days? 0 [email or web address] Information not available 11/30/2024 Have You Recently Or Are You Planning To Travel To An Area With Zika Virus? No CHART_MERGE Information not available 08/19/2023 In General, Would You Say Your Health Is Fair [email or web address] Information not available 10/31/2022 How Would You Describe The Condition Of Your Mouth And Teeth? including False Teeth Or Dentures? Fair [email or web address] Information not available 10/31/2022 In The Past 7 Days, How Many Servings Of Fruits And Vegetables Did You Typically Eat Each Day? (1 Serving = 1 Cup Of Fresh Vegetables, 1? 2 Cup Of Cooked Vegetables, Or 1 Medium Piece Of Fruit. 1 Cup = Size Of A Baseball.) 3-4 Servings Per Day [email or web address] Information not available 11/30/2024 In The Past 7 Days, How Many Servings Of High Fiber Or Whole Grain Foods Did You Typically Eat Each Day? (1 Serving = 1 Slice Of 100% Whole Wheat Bread, 1 Cup Of Whole-grain Or High-fiber [id number] Cereal, 1? 2 Cup Of Cooked Cereal Such As Oatmeal, Or 1? 2 Cup Of Cooked Brown Rice Or Whole Wheat Pasta.) 1-2 Servings Per Day [email or web address] Information not available 11/30/2024 In The Past 7 Days, How Many Servings Of Fried Or High-fat Foods Did You Typically Eat Each Day? (Examples Include Fried Chicken, Fried Fish, [place], [place], Potato Chips, [place] Chips, Doughnuts, Creamy Salad Dressings, And Foods Made With Whole Milk, Cream, Cheese, Or Mayonnaise.) 0 Servings Per Day [email or web address] Information not available 11/30/2024 In The Past 7 Days, How Many Sugar-sweetened (not Diet) Beverages Did You Typically Consume Each Day 1-2 Drinks Per Day [email or web address] Information not available 11/30/2024 Each Night, How Many Hours Of Sleep Do You Usually Get? Less Than 5 Hours [email or web address] Information not available 10/31/2022 Do You Snore Or Has Anyone Told You That You Snore? Yes [email or web address] Information not available 10/31/2022 In The Past 7 Days, How Often Have You [place] Sleepy During The Daytime? Always [email or web address] Information not available 10/31/2022 Do You Have Chronic Pain? Yes [email or web address] Information not available 10/31/2022 If Yes, Location Of Pain Neuropathy, Drawing Of Hands And Feet, [place] [email or web address] Information not available 10/31/2022 In The Past 7 Days, How Would You Rate Your Pain? Severe Pain(7-9) [email or web address] Information not available 10/31/2022 Are You In A Pain Management Program? No [email or web address] Information not available 10/31/2022 Do You Take Opioids For Your Pain? Yes [email or web address] Information not available 10/31/2022 How Often Is Stress A Problem For You In Handling Such Things As: Your Health, Your Finances, Your Family And Social Relationships, Your Work? Never Or Rarely [email or web address] Information not available 10/31/2022 How Often Do You Get The Social And Emotional Support You Need: Always Information no t available 10/31/2022 In The Past 7 Days, Did You Need Help From Others To Take Care Of Things Such As Laundry And Housekeep- Ing, Banking, Shopping, Using The Telephone, Food Preparation, Transportation, Or Taking Your Own Medications? Yes [email or web address] Information not available 11/30/2024 Do You Live Alone? No [email or web address] Information not available 10/31/2022 Does Your Home Have Any Fall Risks (un-level Floors, Unfastened Rugs, Poor Lighting, Etc)? No [email or web address] Information not available 10/31/2022 Do You Feel Safe At Home? 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 Yes Information not available 11/28/2023 What Was The Date Of Your Most Recent Tobacco Screening? 01/20/2024 [email or web address] Information not available 01/30/2024 How Many Children Do You Have? 2 [email or web address] Information not available 11/30/2024 Do You Have Any Pets? No CHART_MERGE Information not available 08/19/2023 What Is Your Relationship Status? Lives With In A House CHART_MERGE Information not available 08/19/2023 Do You Use Your Seat Belt Or Car Seat Routinely? Yes CHART_MERGE Information not available 08/19/2023 Are You Sexually Active? No [email or web address] Information not available 11/30/2024 Are You Passively Exposed To Smoke? No CHART_MERGE Information no t available 08/19/2023 Has Tobacco Cessation Counseling Been Provided? No CHART_MERGE Information not available 08/19/2023 How Many Years Have You Smoked Tobacco? 0 [email or web address] Information not available 01/30/2024 Do You Have Difficulty Walking Or Climbing Stairs? Yes CHART_MERGE Information not available 08/19/2023 Are You Currently In School? No Diploma CHART_MERGE Information not available 08/19/2023 Sex: Female Functional Status Question Answer Note LastModified by Organizat ion Details LastModified Time Do you use any illicit or recreational drugs? No CHART_MERGE Information not available 08/19/2023 Do you or have you ever used any other forms of tobacco or nicotine? No CHART_MERGE Information not available 08/19/2023 What is your level of alcohol consumption? None CHART_MERGE Information not available 08/19/2023 Do you or have you ever used smokeless tobacco? 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 Yes does not drive CHART_MERGE Information not available 08/19/2023 Are you able to walk? YESASSIST CHART_MERGE Information not available 08/19/2023 Do you have difficulty doing errands alone? Yes CHART_MERGE Information not available 08/19/2023 Are you able to care for yourself? Yes CHART_MERGE Information not available 08/19/2023 Do you have difficulty dressing or bathing? No CHART_MERGE Information not available 08/19/2023 What is your exercise level? None CHART_MERGE Information not available 08/19/2023 Mental Status Question Answer Note LastModified by Organizat ion Details LastModified Time Do you feel stressed (tense, restless, nervous, or anxious, or unable to sleep at night)? [id number] CHART_MERGE Information not available 08/19/2023 Do you have difficulty concentrating, remembering or making decisions? No CHART_MERGE Information no t available 08/19/2023 Family History Relationship Description Onset Age of this Age Resolved Age Notes LastModified by Organization Details LastModified Time Mother Coronary arterioscler osis [email or web address] Not available 2024 08:54:03 Mother Hypercholest erolemia CHART_MERGE Not available 07/23 11:22:16 Mother Cerebrovascu lar accident CHART_MERGE Not available 0 08/19/2023 11:22:16 Mother Hypertensive disorder CHART_MERGE Not available 07/23 11:22:16 Mother Osteoporosis CHART_MERGE Not av ailable 08/19/2023 11:22:16 Mother Blood coagulation disorder Blood clot in vein [email or web address] Not available 04/24/2024 10:11:34 Mother Family member 88 [email or web address] Not available 2024 08:54:03 Father Cerebrovascu lar accident CHART_MERGE Not available 0 08/19/2023 11:22:16 Father Myocardial infarction pt. added direct ly (11/06) CHART_MERGE Not available 08/19/2023 11:22:16 Father Hypertensive disorder CHART_MERGE Not available 07/23 11:22:16 Father Heart disease CHART_MERGE Not available 07/23 11:22:16 Father Malignant neoplasm of skin [email or web address] Not available 2024 08:54:03 Father Congestive heart failure [email or web address] Not available 2024 08:54:03 Father Family member 84 [email or web address] Not available 2024 08:54:03 Sister Malignant tumor of breast [email or web address] Not available 2024 08:54:03 Sister Family member 44 [email or web address] Not available 2024 08:54:03 Unspecified Relation Asthma [email or web address] Not available 025 08:54:03 Notes:1 sister, 1 son 1 daug hter, Medical History Condition Response Allergies (Food, seasonal, environmental ) Y Allergies/Hayfever Y Heart Problems Y Other Y Hernia Y Migraines Y Kidney or Bladder Problems Y GI Problems Y COPD Y Depression Y Breast Problem Osteoporosis/Osteopenia Y Anemia Y Difficulty Swallowing Y Orthopedic Problems Y Neurological Problems Y Hyperlipidemia Y Cancer Y Back Problems Y Asthma Y Reflux/GERD Y Sleep Apnea Y Headaches Y Kidney Disease Y Gynecological History Statement/Question Response Abnormal Pap N 05/18/2024 Date of Last Colonoscopy 12/05/2021 Most Recent Bone Density 12/06/2023 Date of LMP 1950 Sexually Active? N Menses Monthly N Current Control Method None Age at Menarche 74 Most Recent Mammogram 05/18/2024 Obstetrics History GPAL:G 0 P 0 0 0 0 Immunizations Vaccine Type Date Status Note Provider Nam e and Address Organization Details Recorded Time Hep A, adult 8 completed Not Available [facility] 09/04/2023 05:24:25 Influenza, split virus, quadrivalent, PF 0 completed Not Available [facility] 09/04/2023 05:24:25 Td (adult), 2 Lf tetanus toxoid, preservative free, adsorbed 7 completed Not Available [facility] 09/04/2023 05:24:25 COVID-19, mRNA, LNP-S, PF, 100 mcg/0.5mL dose or 50 mcg/0.25mL dose 1 completed Not Available [facility] 09/04/2023 05:24:25 Influenza, split virus, trivalent, PF 6 completed Not Available [facility] 09/04/2023 05:24:25 Hep A, adult 9 completed Not Available [facility] 09/04/2023 05:24:25 COVID-19, mRNA, LNP-S, PF, 100 mcg/0.5mL dose or 50 mcg/0.25mL dose 1 completed Not Available [facility] 09/04/2023 05:24:25 Influenza, split virus, quadrivalent, PF 1 completed Not Available [facility] 09/04/2023 05:24:25 Influenza, adjuvanted, quadrivalent, PF 3 completed Not Available [facility] 09/04/2023 05:24:25 COVID-19, mRNA, LNP-S, bivalent, PF, 50 mcg/0.5 mL or 25mcg/0.25 mL dose 3 completed Not Available [facility] 09/04/2023 05:24:25 Influenza, high-dose, quadrivalent, PF 3 completed Not Available [facility] 09/04/2023 05:24:25 Pneumococcal conjugate PCV20, polysaccharide [id number] conjugate, adjuvant, PF 3 completed Not Available [facility] 09/04/2023 05:24:25 RSV, recombinant, protein subunit RSVpreF, adjuvant reconstituted, 0.5 mL, PF 3 completed Not Available [facility] 09/04/2023 05:24:25 influenza, unspecified formulation 4 completed Karine hickey, [place] - [facility] [place] [facility] [place] 04/24/2024 10:10:34 pneumococcal, unspecified formulation 1 completed Karine Joy null, [place] - [facility] [place] [facility] [place] 04/24/2024 10:10:47 Influenza, adjuvanted, trivalent, PF 4 completed Thad Canales MD [address] [facility] [address], [place], [address], [place] - [facility] [place] [facility] [place] 05/19/2024 13:06:50 SARS-COV-2 (COVID-19) vaccine, UNSPECIFIED 1 completed Karine Joy null, [place] - [facility] [place] [facility] [place] 09/17/2024 10:20:01 Tdap 5 completed Madison Wills null, [place] - [facility] [place] [facility] [place] 11/30/2024 09:53:01 Past Encounters Encounter ID Performer Location Encounter Start Date Encounter Closed Date Diagnosis/Indication Diagnosis SNOMED-CT Code Diagnosis ICD10 Code Diagnosis Note [id number] Kay Perez PA-C [facility] [address] [place] [address] 10/28/2024 08:41:27 10/28/2024 09:02:01 Multiple myeloma 121847747 C90.00 IgG Lambda multiple myeloma. ISS stage III based on elevated beta 2 microglobu felix. Lytic bone lesions and recent T11 compressio n fracture. Initially treated with Velcade and Dexamethas one for cycle 1 and revlimid added with cycle 2. Started cycle 2 (03-18-17). Treated with 6 cycles of RVD therapy in late 2016 with marked improvemen t in labs. Velcade held on cycle #6 due to increased peripheral neuropathy . Patient continued on Revlimid/d zaina mckeon and given complete response on recent bone marrow biopsy at in August 2017 switched to maintence therapy with revlimid. Over the last 2-3 months patient's GFR has dropped below 30. Changed dose of Revlimid to 2.5 mg p.o. Daily in December 2018. Will continue with maintenanc e therapy.Danae bs from December 22, 2018 demonstrat ed a kappa light chain of 8.8, lambda light chain 13.9 and kappa lambda ratio 0.63. These are all normal range. Previous history with IgG lambda multiple myeloma.Pr ior dose reduction of Revlimid maintenanc e therapy to 2.5 mg every day. Patient returned on June 02, 2021. Labs performed with SPEP without findings of monoclonal spike. Patient will start Xgeva for reduction of skeletal related events in July 2021.Kayley nt recently stopped maintenanc e Revlimid on October 01, 2022. Stoppage of therapy to assess if any improvemen t in respirator y status.Res tarted maintenanc e Revlimid in December 2022.Kayley nt with history of IgG lambda myeloma. Labs on July 08, 2024 with magnesium 1.8. Phosphorus 3.5. Monoclonal spike not observed. Normal free light chains and normal free light chain ratio. Creatinine 1.4 with GFR 40. Potassium 4.2. Labs on September 02, 2024 with normal free light chains. No evidence of monoclonal spike. Patient returns on October 28, 2024 for continued dosing of IVIG. Will follow-up repeat labs today. 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 The low end of normal is 700. I discussed with her infusional IgG supplement ation on a monthly basis due to likely suppressio n from multiple myeloma as well as the treatment required for multiple myeloma.St arted monthly IV Ig on April 16, 2018.Labs from August 04, 2018 demonstrat e a normal kappa light chain 14.5, normal lambda light chain 12.6, and normal kappa lambda ratio 1.15. Patient was due for IVIG therapy but her creatinine had worsened to 2.1 and her GFR was down to 25. IV IG therapy was held the month of July and labs were repeated 2 weeks later on August 18, 2018. Creatinine had returned to 1.6 and GFR was back to baseline at 34.Started subcutaneo us IVIG therapy in May 2019. Tolerating well at this point.Over all improving respirator y status. Will continue as patient is tolerating well.Kayley lerner continues with every 4 week IVIG supplement ation. Anemia [id number] D64.9 mild anemiaPati ent with history of chronic kidney disease. Iron studies normal on September 02, 2024. Normal B12 and folate. Suspect impact of chronic kidney disease.wi follow up labs today. 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 Over the last month slight increase in neuropathy symptoms. Using oxycodone slightly more during this time. Will follow-up discussed potential adjustment of dosing however patient previously had trouble with gabapentin at higher doses with mental status changes.Cu rrently taking gabapentin 300 mg 2 tabs p.o. q.8 hours p.r.n..Katy castle recently started taking low-dose Effexor Lymphedema of lower extremity [id number] I89.0 Lower extremity compressio n stockings in place. Will continue with as needed Lasix. Pain due t o neoplastic disease [id number] 9102 G89.3 History of multiple bone fractures secondary to myeloma. Patient currently on oxycodone as needed. Patient previously on fentanyl patch 37.5 mcg every 72 hours. Patch is no longer being paid for by patient's insurance. Recently had to try 25 mcg patch. Dose decreased to 25 mcg patch. Chronic as thmatic bronchitis [id number] J44.9 Patient has been seen by runway model in [facility] and is due to start Tezspire (Tezepelum ab). Monoclonal antibody is a monthly infusion. No reported interactio n with Revlimid. Nausea and vomiting [id number] R11.2 Patient with nausea. Will send prescripti on for Zofran. Trial of Reglan with increase in muscle spasms most notably the lower legs. Stopped Reglan. Will try Compazine. If needed can add Ativan. Chronic ki dney disease stage 3B [id number] N18.32 Labs on July 10, 2023 with Creatinine 1.8. GFR less than 30 consistent with stage IIIB chronic kidney disease. Will send erythropoi etin level. Hypokalemia [id number] E87 .6 Labs on June 23, 2024 with potassium 2.6 creatinine 1.7 with GFR 32. Magnesium 1.3. Albumin 2.9. Patient continues on potassium and magnesium supplement ation. Patient continues on oral potassium 20 mEq daily. Will follow-up repeat labs today. Menopausal flushing [id number] 39944 N95.1 Patient interested in trying new medication for hot flashes Veozah. Only limitation would be patient's chronic kidney disease. If GFR was below 30 would not recommend using. Will send in prescripti on.Patient started on low-dose effexor. Will follow-up for any improvemen t. Drug-induc ed mucositis [id number] K12.32 Continues with magic mouthwash prn. Nausea [id number] R11.0 as needed zofran and promethazi ne. Hypomagnesemia 951585127 E83.42 Labs on May 13, 2024 with critical magnesium 1.2. Will give 2 g IV magnesium. Patient is taking magnesium 400 mg p.o. daily. Patient continues on magnesium supplement ation. Will follow up labs today. Low back pain [id number] M54.50 Patient had fall at home and she fell onto her shoulder while sustaining a cut on her right lower extremity laterally. Cut is well healing however patient reports increasing low back pain. Patient seen by orthopedic s and had x-rays of her shoulder with good positionin g of prior shoulder replacemen t hardware. Discussed x-ray of the low back to assess for any potential compressio n fracture. Patient denies any symptoms of radiculopa thy. Patient does have lower extremity numbness and neuropathy secondary to prior treatment of myeloma. X-ray on September 30, 2024 performed with stable postoperat rigo changes in the lower thoracic spine as well as lumbar spine. No evidence of new fracture. Old compressio n fracture seen but no new areas of bone change. Long-term current use of intravenous immune globulin [id number] 14028 Z79.899 Started subcutaneo us IVIG therapy in May 2019. Tolerating well at this point.Over all improving respirator y status. Will continue as patient is tolerating well.Patie nt continues with every 4 week IVIG supplement ation. Will follow up CBC and CMP prior to IVIG and Xgeva administra tion to monitor for toxicity. [id number] Thad Canales MD [facility] [address] [facility] [address] 10/20/2024 10:00:20 10/20/2024 10:35:35 Clouded consciousness [id number] R41.0 [id number] Thad Canales MD [facility] [address] [facility] [address] [place] [address] 11/11/2024 08:44:49 11/11/2024 09:54:14 Pain in right foot [id number] 59980 M79.671 Osteoporosis [id number] M8 1.0 [id number] Marco Meyer MD [facility] [address] [facility] [address] [place] [address] 11/11/2024 10:10:16 11/11/2024 10:35:36 Pain in right foot [id number] 58587 M79.671 Health Concerns Section Related Observation LastModified by Organization Detai ls LastModified Time None Recorded Concern Status LastModified by Organization Details LastModified Time None Recorded Payers Encounter Date Sequence Insurance Name Policy Number Policy Mahoney Covered Member ID Mahoney Member ID Guarantor Name 11/11/2024 1 [place] Salima Burrell [id number] Salima Burrell 11/11/2024 2 [employer] - [employer] (MEDICARE SUPPLEMENT) Salima Burrell [id number] Salima Burrell Notes Date Note Type Note Provider Name and Address Organization Details Recorded Time 11/11/2024 text/html She notes about 4 days ago she was walking in her kitchen without shoes and felt a pop in her foot with acute pain around the base of her last two toes. The pain persisted and she then looked at her foot and had some swelling and redness. The following night she had an increase in redness. She has pain with weight bearing and trying to move her toes. She has been trying to stay off her foot when she can. She has no family or personal history of gout. Thad Canales MD [address], [place], [address], [facility] [place] [facility] [place] 11/11/2024 15:01:25 OBGyn Episode No OBEpisode recorded.
--- OUTSIDE RECORDS SUMMARY | 2024-12-08 09:23 | XMS_ITS | Continuity of Care Document ---
Author Organization [facility] Address [address] [place] [address] Care Team Providers Care Food Service Lead Name Role Phone THAD CANALES Primary Care Provider [phone] Assessment No assessment recorded. Plan of Treatment Reminders Order Date Submit Date Provider Last Modified By Organization Details Last Modified Time Details Appointments FOLLOW UP 30 2024 09:00A M Fernandez Jordan MD Not available Not available Not available Establish ed Visit 15 min 2024 09:00A M LEONIDES COULTER NP Not available Not available Not available Lab magnesium , serum or plasma [address], [address] [place], [address], 12/02/2024 09:01:23 phosphoru s, serum or plasma 2024 025 JOSE [facility], [address] [place], [address], 11/25/2024 09:37:05 gastroint estinal pathogens panel, culture, stool [address], [address] [place], [address], 12/02/2024 09:01:23 O&P (ova & parasites ), stool [address], [address] [place], [address], 12/07/2024 10:24:33 gastroint estinal pathogens DNA + RNA panel, TERRELL+non-p robe, stool 2024 025 [place] [address] [facility], [address], [address], [place], [address], 12/07/2024 10:24:33 C diff toxin A+B, qual IA, stool [address], [address], [place], [address], 12/07/2024 10:24:33 fat panel, stool 2024 025 [place] [address] [facility], [address], [address], [place], [address], 12/07/2024 10:24:33 CBC w/ auto diff 2024 025 [facility], [address] [facility], [place], [address], 11/25/2024 09:23:21 CMP, serum or plasma 2024 025 [facility], [address] [place], [address], 11/25/2024 09:37:01 immunofix ation + protein electroph oresis + free light chains, serum [address] [facility], [address] [place], [address], 12/02/2024 09:01:23 Referral None recorded. Procedures None recorded. Surgeries None recorded. Imaging XR, osseous survey, complete [address] (Centralized Scheduling), [address] [place], [address], 12/02/2024 09:01:35 Medication Orders fentanyl 37.5 mcg/hour transderm al patch 2024 025 [facility], [address] [facility] [address] [address], [place], [address], 12/01/2024 09:06:36 Patient TargetsNo targets recorded. Patient InstructionsNo instructions recorded. Reason for Referral None Reported. Results Created Date Observation Date Name Description Value Unit Range Abnormal Flag Note LastModifiedBy Organization Detail LastModifiedTime 11/12/19 25 11/11/2024 XR, foot, 3 or more view No observ ation record ed. [email or web address] In-House Imaging - [facility] [address] , [place], [address], 11/12/2024 08:32:53 Result Notes None recorded. Problems Name Problem SNOMED Code Status Onset Date Resolution Date Notes Provider Name and Address Organization Details Recorded Time Pain in right foot 2689130789408 07 Active 2024 ANAHY LOONEY [facility], [facility] & [place] 5 10:15:14 Chronic intractabl e migraine without aura 0494839213318 05 Active 2021 Not Available [facility] 4 05:24:21 Restless legs 00264127 Active Not Available [facility] 4 05:24:21 Compressio n fracture Active Not Available [facility] 4 05:24:21 Exacerbati on of moderate persistent asthma 509455354 Active Not Available [facility] 4 05:24:22 Deficiency of macronutri ents 645592281 Active Not Available [facility] 4 05:24:21 Multiple myeloma in remission 19217442 Active Not Available [facility] 4 05:24:22 Nocturia 760682720 Active Not Available [facility] 4 05:24:21 Phleboscle rosis 210924975 Active Not Available [facility] 4 05:24:21 Increased frequency of urination 860446179 Active Not Available [facility] 4 05:24:21 Selective immunoglob ulin E deficiency 365381707 Active Not Available [facility] 4 05:24:21 Gallstone 232072327 Active Not Available [facility] 4 05:24:21 Chronic kidney disease stage 3 644749389 Active Not Available [facility] 4 05:24:22 Neuropathy 995597920 Active Not Available [facility] 4 05:24:22 Asthma 836191535 Active Not Available [facility] 4 05:24:21 Unsteady when walking 73546489 Active Not Available [facility] 4 05:24:21 Hypophosph atemia 0852942 Active Not Available [facility] 4 05:24:22 Chronic pain 68038616 Active Not Available [facility] 4 05:24:22 Allergic rhinitis caused by pollen 92258496 Active Not Available [facility] 4 05:24:21 Incisional hernia 196634668 Active Not Available [facility] 4 05:24:21 Bronchitis 80902664 Active Not Available [facility] 4 05:24:21 Pain in back following surgical procedure 761674945 Active Not Available [facility] 4 05:24:21 Lymphedema 578137713 Active Not Available [facility] 4 05:24:21 Immunoglob ulin G deficiency 2144177174737 6 Active Not Available [facility] 4 05:24:21 Mixed hyperlipid emia 736557232 Active Not Available [facility] 4 05:24:21 Urge incontinen ce of urine 58026352 Active Not Available [facility] 4 05:24:22 Rectovagin al fistula 60497794 Active Not Available [facility] 4 05:24:22 Dysphagia 94567126 Active Not Available [facility] 4 05:24:22 Exacerbati on of severe persistent asthma 639095381 Active Not Available [facility] 4 05:24:22 Vitamin D deficiency 13207707 Active Not Available [facility] 4 05:24:22 Disorder of cardiovasc ular system 73718921 Active Not Available [facility] 4 05:24:22 Cholelithi asis without obstructio n 26748651 Active Not Available [facility] 4 05:24:22 Inflammato ry disease of mucous membrane 48287773 Active Not Available [facility] 4 05:24:22 Chronic bronchitis 83430900 Active Not Available [facility] 4 05:24:22 Respirator y tract infection 829060753 Active Not Available [facility] 4 05:24:21 Colostomy present 919363558 Active Not Available [facility] 4 05:24:21 Environmen krystal allergy 102912254 Active Not Available [facility] 4 05:24:22 Colovagina l fistula 043250503 Active Not Available [facility] 4 05:24:21 Total urinary incontinen ce 328185695 Active Not Available [facility] 4 05:24:21 Multiple myeloma 445191139 Active Not Available [facility] 4 05:24:21 Edema 944289421 Active Not Available [facility] 4 05:24:21 Vesicocoli c fistula 64764022 Active Not Available [facility] 4 05:24:21 Hypocalcem ia 9819055 Active Not Available [facility] 4 05:24:22 Tension-ty pe headache 263058920 Active Not Available [facility] 4 05:24:22 Gastroesop hageal reflux disease 782122613 Active Not Available [facility] 4 05:24:21 Uncomplica sacha severe persistent asthma 716372505 Active Not Available [facility] 4 05:24:22 Acute exacerbati on of chronic obstructiv e pulmonary disease 642690924 Active Not Available [facility] 4 05:24:21 Chronic renal failure 74183881 Active Not Available [facility] 4 05:24:22 Hyperlipid emia 13723479 Active Not Available [facility] 4 05:24:22 Hypokalemi a 54674279 Active Not Available [facility] 4 05:24:22 Recurrent urinary tract infection 474435951 Active Not Available [facility] 4 05:24:21 Chronic kidney disease 174573499 Active Not Available [facility] 4 05:24:22 Screening for malignant neoplasm of breast Active Not Available [facility] 4 05:24:21 Right bundle branch block 09116219 Active Not Available [facility] 4 05:24:22 Bilateral hand weakness 7052497870264 9104 Active 2022 Not Available [facility] 4 05:24:21 Laryngopha ryngeal reflux 099063331 Active 2022 Not Available [facility] 4 05:24:22 Severe persistent asthma 144575741 Active 2022 Not Available [facility] 4 05:24:22 Chronic cough 20760123 Active 2022 Not Available [facility] 4 05:24:22 Acute nontraumat ic kidney injury 6622991795362 03 Active Not Available [facility] 4 05:24:21 Nausea and vomiting 05511362 Active Not Available [facility] 4 05:24:21 Patient immunosupp ressed 317278485 Active Not Available [facility] 4 05:24:22 Community acquired pneumonia 363782677 Active Not Available [facility] 4 05:24:22 Urinary tract infectious disease 29572835 Active Not Available [facility] 4 05:24:22 Obstructiv e sleep apnea syndrome 36621536 Active 2023 Olivia Meyer, DO [address] , [place], [address] , [facility] & [place] 4 09:29:47 Notes:Some problems listed i n Documents: #[id number], #[id number] could not be added to this patient's chart. Please review these documents and add these problems to the patient's chart manually as needed. Problem Notes None recorded. Procedures Surgical History Date Name Laterality Status Provider Name and Address Organization Details Recorded Time 11/04 esophagogastroduodenoscopy completed Alanna andrews [place] [facility] [place] & [place] 5 14:46:48 11/04 Colonoscopy completed Karine [place] [facility] - [facility] & [place] 5 14:46:57 05/18 completed Madison Wills [place] [facility] [place] & [place] 5 08:22:37 05/18 Most Recent Mammogram completed Karine [place] [facility] [place] [facility] [place] 5 10:16:13 02/08 polysomnography completed Karine [place] [facility] [place] [facility] & [place] 5 10:16:45 12/05 Most Recent Bone Density completed Karine [place] [facility] [place] & [place] 5 10:16:10 02/20 Cryosurgery completed Thad Canales MD [address], [place], [address] , [place] [facility] [place] [facility] [place] 3 11:13:28 01/23 cholecystectomy completed Sonal [place] [facility] [place] [facility] [place] 3 08:08:43 01/23 repair of incisional hernia completed Yaa [place] [facility] [place] [facility] [place] 3 08:08:21 07/22 Cholecystectomy completed Madison Wills [place] [facility] [place] & [place] 5 08:22:47 12/15 Colonoscopy completed Karine [place] [facility] [place] [facility] [place] 5 10:23:58 12/05 Date of Last Colonoscopy completed Madison [place] [facility] [place] [facility] [place] 5 08:22:37 05/03 procedure on knee completed Olivia Meyer DO [address], [place], [address] , [place] [facility] [place] & [place] 3 08:57:05 07/22 Other completed Madison Wills [place] [facility] [place] & [place] 5 08:22:47 07/06 insertion of implantable venous access port completed DO [address], [place], [address] , [place] [facility] [place] & [place] 3 08:58:24 07/06 removal of implantable venous access port completed DO [address], [place], [address] , [place] [facility] [place] & [place] 3 08:58:40 05/22 excision of part of colon and excision of terminal ileum with ileocolic anastomosis completed DO [address], [place], [address] , [place] [facility] [place] & [place] 3 08:56:32 12/21 repair of rectovaginal fistula completed DO [address], [place], [address] , [place] [facility] [place] & [place] 3 08:55:42 07/22 kyphoplasty of fracture of spine using fluoroscopic guidance completed DO [address], [place], [address] , [place] [facility] [place] & [place] 3 10:34:38 07/22 Other completed Madison Wills [place] [facility] & [place] 5 08:22:47 02/19 bronchoscopy completed DO [address], [place], [address] , [place] [facility] [place] 3 08:57:20 02/17 esophagogastroduodenoscopy completed Alanna [place] [facility] [facility] & [place] 5 10:21:54 07/22 procedure on elbow completed DO [address], [place], [address] , [place] [facility] [place] 3 08:55:21 01/19 bone marrow biopsy, needle or trocar completed Karine Joy [place] [facility] [place] & [place] 5 10:22:33 07/22 insertion of implantable venous access port completed Olivia Meyer DO [address], [place], [address] , [place] [facility] [place] & [place] 3 08:58:11 07/22 repair of shoulder completed Sonal Rhianna [place] [facility] [facility] & [place] 3 08:06:30 07/22 Knee Replacement completed Sonal [place]na [place] [facility] & [place] 3 08:05:35 07/22 Knee Replacement completed Sonal [place]na [place] [facility] & [place] 3 08:05:25 07/22 procedure on wrist completed Sonal [place]na [place] [facility] & [place] 3 08:05:02 07/22 Hysterectomy completed Sonal [place]na [place] [facility] & [place] 3 08:04:23 07/22 lumpectomy of breast completed Sonal [place]na [place] [facility] & [place] 3 08:04:05 hernia repair completed Delmi Weinstein [place] [facility] [facility] & [place] 3 11:09:01 section completed Sonal [place]na [place] [facility] & [place] 3 08:03:33 Colostomy completed Sonal [place]na [place] [facility] & [place] 3 08:11:02 Imaging Results None recorded. Procedure Notes None recorded. Medical Equipment None Reported. Allergies Allergen ID Allergen Name Allergen Category Reaction Reaction Severity Criticality Documentation Date Start Date Code Code System Note Provider Name and Address Organization Details Recorded Time 62865 Substance with sulfonami de structure and antibacte rial mechanism of action (substanc e) medicatio n dizziness hives rash Not available Not available Not available Not available 04/11/2022 14083 8003 SNOMED criti calit y - mediu m Karine Joy null, [place] [facility] & [place] 3 07:13:57 2419 meperidin e medicatio n hives other Not available Not available low 03/29/2022 6754 RxNorm also rose d Demer ol; hypot ensio n, Karine Joy null, [place] - [facility] - [place] & [place] 5 10:29:07 28461 honey bee venom environme nt Not available Not available low 05/01/2023 64786 7 RxNorm Karine Joy null, [place] - [facility] - [place] & [place] 4 10:09:38 Medications Name Sig Start Date [...] propionate 50 mcg/actuati on nasal spray,suspe nsion Troy 2 sprs by nasal route. 09/02 completed [...] Not Available Not Available Not Available Flonase 02/12 /2025 completed Not Available Not Available Not Available [...] 137 mcg-flutica sone 50 mcg/spray nasal spray Troy 1 spr by nasal route. 09/18 completed [...] Updated DateTime 5 157.48 cm 32.2 kg/m2 76556.2 6 g 97.6 [degF] 98 % 98 % 72 /min 133 mm[Hg] 63 mm[Hg] Alanna Douglas [place] [facility] [place] & [place] 5 08:54:24 Social History Question Answer Notes LastModified by Organizat ion Details LastModified Time Tobacco Smoking Status Never Smoker Not Available [facility] 08/19/2023 11:22:25 Do You Have An Advance [...] Do In The Last 7 Days? 0 [email or web address] Information not available 11/30/2024 Have You Recently Or Are You Planning To Travel To An Area With Zika Virus? No CHART_MERGE Information not available 08/19/2023 In General, Would You Say Your Health Is Fair [email or web address] Information not available 10/31/2022 How Would You Describe The Condition Of Your Mouth And Teeth? including False Teeth Or Dentures? Fair [email or web address] Information not available 10/31/2022 In The Past 7 Days, How Many Servings Of Fruits And Vegetables Did You Typically Eat Each Day? (1 Serving = 1 Cup Of Fresh Vegetables, 1? 2 Cup Of Cooked Vegetables, Or 1 Medium Piece Of Fruit. 1 Cup = Size Of A Baseball.) 3-4 Servings Per Day [email or web address] Information not available 11/30/2024 In The Past 7 Days, How Many Servings Of High Fiber Or Whole Grain Foods Did You Typically Eat Each Day? (1 Serving = 1 Slice Of 100% Whole Wheat Bread, 1 Cup Of Whole-grain Or High-fiber Aghuf-xk-imh Cereal, 1? 2 Cup Of Cooked Cereal Such As Oatmeal, Or 1? 2 Cup Of Cooked Brown Rice Or Whole Wheat Pasta.) 1-2 Servings Per Day [email or web address] Information not available 11/30/2024 In The Past 7 Days, How Many Servings Of Fried Or High-fat Foods Did You Typically Eat Each Day? (Examples Include Fried Chicken, Fried Fish, [place], Vietnamese Sherrill, Potato Chips, [place] Chips, Doughnuts, Creamy Salad Dressings, And Foods Made With Whole Milk, Cream, Cheese, Or Mayonnaise.) 0 Servings Per Day [email or web address] Information not available 11/30/2024 In The Past 7 Days, How Many Sugar-sweetened (not Diet) Beverages Did You Typically Consume Each Day 1-2 Drinks Per Day [email or web address] Information not available 11/30/2024 Each Night, How Many Hours Of Sleep Do You Usually Get? Less Than 5 Hours [email or web address] Information not available 10/31/2022 Do You Snore Or Has Anyone Told You That You Snore? Yes Information not available 10/31/2022 In The Past 7 Days, How Often Have You Thomson Sleepy During The Daytime? Always [email or web address] Information not available 10/31/2022 Do You Have Chronic Pain? Yes [email or web address] Information not available 10/31/2022 If Yes, Location Of Pain Neuropathy, Drawing Of Hands And Feet, [place] [email or web address] Information not available 10/31/2022 In The Past 7 Days, How Would You Rate Your Pain? Severe Pain(7-9) [email or web address] Information not available 10/31/2022 Are You In A Pain Management Program? No [email or web address] Information not available 10/31/2022 Do You Take Opioids For Your Pain? Yes [email or web address] Information not available 10/31/2022 How Often Is Stress A Problem For You In Handling Such Things As: Your Health, Your Finances, Your Family And Social Relationships, Your Work? Never Or Rarely [email or web address] Information not available 10/31/2022 How Often Do You Get The Social And Emotional Support You Need: Always [email or web address] Information no t available 10/31/2022 In The Past 7 Days, Did You Need Help From Others To Take Care Of Things Such As Laundry And Housekeep- Ing, Banking, Shopping, Using The Telephone, Food Preparation, Transportation, Or Taking Your Own Medications? Yes [email or web address] Information not available 11/30/2024 Do You Live Alone? No [email or web address] Information not available 10/31/2022 Does Your Home Have Any Fall Risks (un-level Floors, Unfastened Rugs, Poor Lighting, Etc)? No [email or web address] Information not available 10/31/2022 Do You Feel Safe At Home? Yes Information not available 11/28/2023 Do You Have A Medical Power Of Medical Office Assistant? Yes Information not available 11/28/2023 What Was The Date Of Your Most Recent Tobacco Screening? 01/20/2024 [email or web address] Information not available 01/30/2024 How Many Children Do You Have? 2 [email or web address] Information not available 11/30/2024 Do You Have Any Pets? No CHART_MERGE Information not available 08/19/2023 What Is Your Relationship Status? Lives With In A House CHART_MERGE Information not available 08/19/2023 Do You Use Your Seat Belt Or Car Seat Routinely? Yes CHART_MERGE Information not available 08/19/2023 Are You Sexually Active? No [email or web address] Information not available 11/30/2024 Are You Passively Exposed To Smoke? No CHART_MERGE Information no t available 08/19/2023 Has Tobacco Cessation Counseling Been Provided? No CHART_MERGE Information not available 08/19/2023 How Many Years Have You Smoked Tobacco? 0 [email or web address] Information not available 01/30/2024 Do You Have Difficulty Walking Or Climbing Stairs? Yes CHART_MERGE Information not available 08/19/2023 Are You Currently In School? 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 [id number] CHART_MERGE Information not available 08/19/2023 Do you [...] Migraines Y Kidney or Bladder Problems Y Depression Y COPD Y GI Problems Y Breast Problem Osteoporosis/Osteopenia Y Anemia Y [...] Hep A, adult 8 completed Not Available [facility] 09/04/2023 05:24:25 Influenza, split virus, quadrivalent, PF 0 completed Not Available [facility] 09/04/2023 05:24:25 Td (adult), 2 Lf tetanus toxoid, preservative free, adsorbed 7 completed Not Available [facility] 09/04/2023 05:24:25 COVID-19, mRNA, LNP-S, PF, 100 mcg/0.5mL dose or 50 mcg/0.25mL dose 1 completed Not Available [facility] 09/04/2023 05:24:25 Influenza, split virus, trivalent, PF 6 completed Not Available [facility] 09/04/2023 05:24:25 Hep A, adult 9 completed Not Available [facility] 09/04/2023 05:24:25 COVID-19, mRNA, LNP-S, PF, 100 mcg/0.5mL dose or 50 mcg/0.25mL dose 1 completed Not Available [facility] 09/04/2023 05:24:25 Influenza, split virus, quadrivalent, PF 1 completed Not Available [facility] 09/04/2023 05:24:25 Influenza, adjuvanted, quadrivalent, PF 3 completed Not Available [facility] 09/04/2023 05:24:25 COVID-19, mRNA, LNP-S, bivalent, PF, 50 mcg/0.5 mL or 25mcg/0.25 mL dose 3 completed Not Available [facility] 09/04/2023 05:24:25 Influenza, high-dose, quadrivalent, PF 3 completed Not Available [facility] 09/04/2023 05:24:25 Pneumococcal conjugate PCV20, polysaccharide [id number] conjugate, adjuvant, PF 3 completed Not Available [facility] 09/04/2023 05:24:25 RSV, recombinant, protein subunit RSVpreF, adjuvant reconstituted, 0.5 mL, PF 3 completed Not Available [facility] 09/04/2023 05:24:25 influenza, unspecified formulation 4 completed Karine hickey[place] [facility] [place] 04/24/2024 10:10:34 pneumococcal, unspecified formulation 1 completed Karine [place] null[place] [facility] [place] [facility] [place] 04/24/2024 10:10:47 Influenza, adjuvanted, trivalent, PF 4 completed Thad Canales MD [address] [facility], [place], [address], [place] [facility] [place] & [place] 05/19/2024 13:06:50 SARS-COV-2 (COVID-19) vaccine, UNSPECIFIED 1 completed Karine [place] null[place] [facility] [place] [facility] [place] 09/17/2024 10:20:01 Tdap 5 completed Madison [place] null[place] [facility] [place] [facility] [place] 11/30/2024 09:53:01 Past Encounters Encounter ID Performer Location Encounter Start Date Encounter Closed Date Diagnosis/Indication Diagnosis SNOMED-CT Code Diagnosis ICD10 Code Diagnosis Note [id number] Kay Perez PA-C [facility] [address] [place] [address] 10/28/2024 08:41:27 10/28/2024 09:02:01 Multiple myeloma 487664238 C90.00 IgG Lambda multiple myeloma. ISS stage [...] peripheral neuropathy . [facility] and given complete response on recent bone [...] of skeletal related events in July 2021.Kayley lerner recently stopped maintenanc e Revlimid on October [...] labs today. 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 The low end of normal is 700. I discussed with her infusional IgG supplement ation on a monthly basis due to likely suppressio n from multiple myeloma as well as the treatment required for multiple myeloma.St [facility] monthly IV Ig on April 16, 2018.Labs [...] every 4 week IVIG supplement ation. Anemia [id number] D64.9 mild anemiaPati ent with history of chronic kidney disease. Iron studies normal on September 02, 2024. Normal B12 and folate. Suspect impact of chronic kidney disease.wi follow up labs today. 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 Will continue with as needed Lasix. Pain due t o neoplastic disease [id number] 9102 G89.3 History of multiple bone fractures secondary to myeloma. Patient currently on oxycodone as needed. Patient previously on fentanyl patch 37.5 mcg every 72 hours. Patch is no longer being paid for by patient's insurance. Recently had to try 25 mcg patch. Dose decreased to 25 mcg patch. Chronic as thmatic bronchitis [id number] J44.9 Patient has been seen by house mother in [facility] and is due to start Tezspire (Tezepelum [...] Ativan. Chronic ki dney disease stage 3B [id number] N18.32 Labs on July 10, 2023 with Creatinine 1.8. GFR less than 30 consistent with stage IIIB chronic kidney disease. Will send erythropoi etin level. Hypokalemia [id number] E87 .6 Labs on June 23, 2024 with potassium 2.6 creatinine 1.7 with GFR 32. Magnesium 1.3. Albumin 2.9. Patient continues on potassium and magnesium supplement ation. Patient continues on oral potassium 20 mEq daily. Will follow-up repeat labs today. Menopausal flushing [id number] N95.1 Patient interested in trying new medication for hot flashes Veozah. Only limitation would be patient's chronic kidney disease. If GFR was below 30 would not recommend using. Will send in prescripti on.Patient started on low-dose effexor. Will follow-up for any improvemen t. Drug-induc ed mucositis [id number] K12.32 Continues with magic mouthwash prn. Nausea 064416352 R11.0 as needed zofran and promethazi ne. Hypomagnesemia 982083535 E83.42 Labs on May 13, 2024 with critical magnesium 1.2. Will give 2 g IV magnesium. Patient is taking magnesium 400 mg p.o. daily. Patient continues on magnesium supplement ation. Will follow up labs today. Low back pain [id number] M54.50 Patient had fall at home and [...] Long-term current use of intravenous immune globulin [id number] 07776 Z79.899 Started subcutaneo us IVIG therapy in May 2019. Tolerating well at this point.Over all improving respirator y status. Will continue as patient is tolerating well.Patie nt continues with every 4 week IVIG supplement ation. Will follow up CBC and CMP prior to IVIG and Xgeva administra tion to monitor for toxicity. [id number] MD Vane Araujo [facility] [place] [address] [place] [address] 11/11/2024 08:44:49 11/11/2024 09:54:14 Pain in right foot [id number] 74712 M79.671 Osteoporosis 74972423 M8 1.0 [id number] MD VANE Gibbons [facility] [address] [place] [address] 11/11/2024 10:10:16 11/11/2024 10:35:36 Pain in right foot [id number] 33703 M79.227 [id number] Fernandez Jordan MD [facility] [address] [place] [address] 11/25/2024 08:50:27 11/25/2024 09:41:07 Long-term current use of intravenous immune globulin [id number] 18172 Z79.899 Started subcutaneo us IVIG therapy in May 2019. Tolerating well at this point.Over all improving respirator y status. Will continue as patient is tolerating well.Kayley lerner continues with every 4 week IVIG supplement ation. Will follow up CBC and CMP prior to IVIG and Xgeva administra tion to monitor for toxicity. Multiple myeloma [id number] 06 C90.00 IgG Lambda multiple myeloma. ISS stage [...] peripheral neuropathy . Patient continued on Revlimid/d examethaso ne and given complete response on recent bone [...] of skeletal related events in July 2021.Kayley lerner recently stopped maintenanc e Revlimid on October 01, 2022. Stoppage of therapy to assess if any improvemen t in respirator y status.Res tarted maintenanc e Revlimid in December 2022.Kayley lerner with history of IgG lambda myeloma. Labs on July 08, 2024 with magnesium 1.8. Phosphorus 3.5. Monoclonal spike not observed. Normal free light chains and normal free light chain ratio. Creatinine 1.4 with GFR 40. Potassium 4.2. Labs on October 28, 2024 with IgA level 42. IgM level 21. No evidence of monoclonal protein. Patient returns November 25, 2024 for continued IVIG dosing. Patient continues with Xgeva. Patient with continued cramping in the lower extremitie s. Considerat ion for evaluation with vascular surgery. Another considerat ion would be to hold the patient's Xgeva to see if any improvemen t as could be side effect from medication . 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 The low end of normal is 700. I discussed with her infusional IgG supplement ation on a monthly basis due to likely suppressio n from multiple myeloma as well as the treatment required for multiple myeloma.St skinnyd monthly IV Ig on April 16, 2018.Labs [...] every 4 week IVIG supplement ation. Anemia 307800098 D64.9 mild anemiaPati ent with history of chronic kidney disease. Iron studies normal on September 02, 2024. Normal B12 and folate. Suspect impact of chronic kidney disease.wi follow up labs today. 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 Over the last month slight increase in neuropathy symptoms. Using oxycodone slightly more during this time. Will follow-up discussed potential adjustment of dosing however patient previously had trouble with gabapentin at higher doses with mental status changes.Cu rrently taking gabapentin 300 mg 2 tabs p.o. q.8 hours p.r.n..Katy ient recently started taking low-dose Effexor Lymphedema of lower extremity [id number] I89.0 Lower extremity compressio n stockings in place. Will continue with as needed Lasix. Pain due t o neoplastic disease [id number] 9102 G89.3 History of multiple bone fractures secondary to myeloma. Patient currently on oxycodone as needed. Patient previously on fentanyl patch 37.5 mcg every 72 hours. Patch is no longer being paid for by patient's insurance. Recently had to try 25 mcg patch. Dose decreased to 25 mcg patch. Chronic as thmatic bronchitis [id number] J44.9 Patient has been seen by house mother in [facility] and is due to start Tezspire (Tezepelum [...] Ativan. Chronic ki dney disease stage 3B 126257084 N18.32 Labs on July 10, 2023 with Creatinine 1.8. GFR less than 30 consistent with stage IIIB chronic kidney disease. Will send erythropoi etin level. Hypokalemia 24212041 E87 .6 Labs on June 23, 2024 with potassium 2.6 creatinine 1.7 with GFR 32. Magnesium 1.3. Albumin 2.9. Patient continues on potassium and magnesium supplement ation. Patient continues on oral potassium 20 mEq daily. Will follow-up repeat labs today. Menopausal flushing 1983 66086 N95.1 Patient interested in trying new medication for hot flashes Veozah. Only limitation would be patient's chronic kidney disease. If GFR was below 30 would not recommend using. Will send in prescripti on.Patient started on low-dose effexor. Will follow-up for any improvemen t. Drug-induc ed mucositis [id number] K12.32 Continues with magic mouthwash prn. Nausea [id number] R11.0 as needed zofran and promethazi ne. Hypomagnesemia 061842207 E83.42 Labs on May 13, 2024 with critical magnesium 1.2. Will give 2 g IV magnesium. Patient is taking magnesium 400 mg p.o. daily. Patient continues on magnesium supplement ation. Will follow up labs today. Low back pain [id number] M54.50 Patient had fall at home and [...] but no new areas of bone change. Acute diarrhea 120943807 R19.7 Patient with diarrhea for the last couple of days. Reported green stool. Will follow-up stool test make sure patient does not have infection. Health Concerns Section Related Observation LastModified by Organization Detai ls LastModified Time None Recorded Concern Status LastModified by Organization Details LastModified Time None Recorded Payers Encounter Date Sequence Insurance Name Policy Number Policy Mahoney Covered Member ID Mahoney Member ID Guarantor Name 11/25/2024 1 MEDIC[place] Salima Burrell [id number] Salima Burrell 11/25/2024 2 [employer] - [employer] (MEDICARE SUPPLEMENT) Salima Burrell [id number] Salima Burrell Notes Date Note Type Note Provider Name and Address Organization Details Recorded Time 11/25/2024 text/html 74 yo F returns for evaluation of multiple myeloma, IgG deficiency, anemia, and chronic kidney disease. Initially hospitalized at [facility] following a laminectomy on 01-30-17 by her orthopedic surgeon Dr Sandoval following an L3 compression fracture. Bone sample at that time demonstrated a plasma cell neoplasm on pathology. She was to have surgery following an abnormal MRI of the spine with concern for lytic bone lesions in the lumbar spine. Bone scan was done in the hospital and was normal. She was found to have a total protein of 8.0 with an albumin of 1.8. Due to protien gap concern was raised for active myeloma. SPEP demonstrated monoclonal protein presence at 4.1 grams and serum free light chains were found to have an elevated Lambda light chain at 1325 with K/L ratio of 0.01. Hemoglobin was low at 7.6 in the hospital and was found to have eGFR of 30 consisted with Stage 3 CKD. Serum calcium was normal.Bone marrow biopsy performed on 02-05-17 demonstrated a plasma cell population of 20-30% of marrow cellularity.Active myeloma based on NCCN guidelines of 20-30% plasma cell population, anemia, renal insufficiency, and K/L ratio at 0.01.She began inital therapy with Velcade/dexamethasone . Skeletal survey with T11 compression fracture treated with Kyphoplasty in the hospital. She was discharged on 02-28-17.Started Zometa and Velcade/dexamethasone on 02-25-17 and completed cycle 1 without revlimid. Decline in renal function and zometa held.She has had a marked reduction in her IgG Lambda light chains with normalization of K/L ratio.Labs from 02-12-17 with K/L ratio of 0.01 and Lambda light chains of 1462.7. M-spike was 4.2 grams.Labs from 04-08-17 with K/L ratio of 0.56 and Lambda light chains of 33.5. M-spike of 1.4 grams.Labs from 05-27-17 with K/L ratio of 0.83 and no elevation in Lambda light chains.M-Kranthi not observed.Labs from 06-24-17 with K/L ratio of 0.87 and normal lambda light chains at 13.4. normal [place] light chains at 11.6.[facility] bone marrow biopsy in August 2017 with below 5% plasma cells and consistent with a complete response to therapy.Unfortunately the usual renal function cut-off for transplant consideration is eGFR at 50 or above with some consideration for eGFR as low as 45. Transplant consideration was withheld and discussion with [facility] transplant physician but has had a complete response. 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 She was seen by colorectal physician in [facility] and had a CT scan performed. Patient was given prophylactic antibiotics and symptoms of vaginal discharge have much improved.Repeat evaluation with colorectal surgery next week.When patient is on antibiotics she does not have vaginal discharge, but whenever off antibiotics will resume vaginal discharge.In March 2018 the patient started IV Ig due to being found have an IgG deficiency secondary to treatment of multiple myeloma. Patient has had recurrent upper respiratory infections has had multiple rounds of antibiotics. Hopefully after a few months will have marked improvement in symptomatology.Improv ed cough and decreased frequency of asthma/bronchitis so far.Labs from August 04, 2018 demonstrate a normal kappa light chain 14.5, normal [...] and GFR was back to baseline at 34.Discussed with the patient continuation of IVIG as she is symptomatically improving and not having as many upper respiratory infections. Also discussed lowering the dose of IV IG and continue with dose reductions evening at the same effect versus getting such a large protein load. If kidney function continues to fluctuate with IVIG will likely after discontinuing switch to either intramuscular or subcutaneous dosing.Labs from August 04, 2018 demonstrate a normal kappa lambda ratio at 1.15 and lambda light chains 12.6. Protein electrophoresis without monoclonal spike.Labs from October 27, 2018 with normal kappa light chain at 12.2 and normal lambda light chain at 14.1. [place] lambda ratio at 0.87.Patient is also status post 2 doses of IV iron with Feraheme. Improved hemoglobin to over 11. Erythropoietin level elevated at 22 however only minimal elevation.Labs from December 22, 2018 demonstrated a kappa light chain of 8.8, lambda light chain 13.9 and kappa lambda ratio 0.63. These are all normal range. Previous history with IgG lambda multiple myeloma.Recent dose reduction of Revlimid maintenance therapy to 2.5 mg every other day.Patient was hospitalized from February 13, 2019 to February 17, 2019. Hospitalization was for altered mental status and patient was discharged inpatient rehab at [facility]. During the course of her evaluation in the hospital she was treated for urinary tract infection and had Enterococcus UTI treated with antibiotic therapy. She presented with metabolic encephalopathy and generalized weakness. Fentanyl patch was continued to be wean down to 25 mcg. Patient was seen by Neurology for evaluation for possible encephalitis. Patient also had evidence change in renal function and episode of hypercalcemia. Patient's calcium improved with discontinuation calcium supplementation.Labs on March 02, 2019 demonstrated white blood count 9.1, red blood count 3.9, hemoglobin 11.5 and hematocrit 37.7. Platelet count 553952. Renal function stable with creatinine 2.1 and BUN 39 with GFR of 25. Consistent with stage 4 chronic kidney disease. Serum light chains demonstrate normal kappa light chain at 7.2. Normal lambda light chain at 14.6. [place] lambda ratio 0.49. Protein electrophoresis with small asymmetrical gamma. No evidence of marked M spike.Discussed continued therapy with Revlimid maintenance.Patient continues with IVIG. Patient's dose given subcutaneously. Stable renal function on recent labs.Labs from early June 2019 demonstrate stable myeloma labs.Labs on September 14, 2019 with SPEP demonstrating an asymmetrical gamma protein. No evidence of monoclonal spike. The asymmetrical gamma is likely due to the patient being on IVIG therapy. Normal serum free light chains. IgG level is 792. Slightly low IgA level at 40 and normal IgM at 80.Labs performed on November 09, 2019 with normal SPEP and no evidence of monoclonal spike. Normal kappa and lambda light chains. IgA level low at 34 IgM level low at 21 and IgG level low at 496.Status post repair of rectovaginal and bladder fistula on December 22, 2019.Patient has resumed maintenance Revlimid. Labs on January 04, 2020 with normal free light chains. SPEP without monoclonal spike.Patient returns for clinic evaluation on March 30, 2020.Patient was given Xgeva on last clinic visit. Following administration the patient had increase in muscle cramps and joint pain. Serum calcium was slightly on the low end of normal. Suspect muscle cramps due to hypocalcemia. Patient given steroid injection by primary care physician.Will proceed with subcutaneous immunoglobulin.Tanya robertson reports increase in neuropathic pain. Requesting increase in fentanyl dosing. Will increase to 37.5 mcg patch. Patient currently using oxycodone every 6 hours scheduled.Skeletal survey performed with concern for lower back compression fracture. Patient sent to Orthopedics and had MRI performed.Observation recommended by Orthopedic surgery. Patient was recently seen by General surgery for possible cholecystectomy. Currently holding on cholecystectomy. Ostomy reversal planned.Labs on May 25, 2020 with normal free light chains. Normal SPEP.Patient had Port-A-Cath removal and insertion.Labs on July 27, 2020 with IgA level low at 25. IgM low at 13. IgG low at 490. Protein electrophoresis without monoclonal spike. Light chains with normal kappa light chain at 10.6 normal lambda light chain 9.7 and normal kappa lambda ratio. Will continue with maintenance Revlimid.Patient returned on September 28, 2020. Dosing of Xgeva last month with increase in muscle cramping. Previously dosing of Zometa held due to decline in kidney function. Discussed if needed potential dosing of alendronate however will follow-up likely repeat bone scan in the coming months.Labs on September 28, 2020 with normal immunofixation and normal protein electrophoresis. Will continue with maintenance Revlimid.Holding Xgeva. Patient returns for evaluation on 11-23-2020.Previous visit with increase in sweating as well as neuropathy. Hemoglobin A1c normal. Thyroid function normal. Consideration for potential further dose reduction of Revlimid.Labs on October 26, 2020 creatinine at 1.6 and GFR at 34. Labs on November 23, 2020 with creatinine 1.8 and GFR at 30.In November 2020 changed maintenance Revlimid dose to 2.5 mg every other day.Labs on November 23, 2020 with SPEP without monoclonal spike. Low IgA level at 44 low IgM level at 11 and low IgG level at 487.Labs on December 21, 2020 with SPEP without monoclonal spike. IgG level 448 and IgA level 41 with IgM 26.Labs on March 15, 2021 with SPEP without monoclonal spike. Immunofixation with IgA level at 43. IgM level at 23. IgG level at 497.Since last clinic visit patient was hospitalized due to fracture of lower extremity. Patient status post left femur fracture repair on May 03, 2021. Patient had fracture repair by Orthopedic surgery and was sent for inpatient rehab.Patient returned on June 02, 2021. Labs performed with SPEP without findings of monoclonal spike. Patient will start in July 2021 Xgeva for reduction of skeletal related events.Patient continues on maintenance Revlimid and is doing well.MRI of the thoracic spine performed by Orthopedics. Patient with compression fracture. Patient recently restarted on Xgeva. Will obtain bone density scan. Patient with prior history of osteoporosis.Patient seen last year due to choledocholithiasis. Offered cholecystectomy however felt to be high surgical risk. Patient with increase in nausea and similar symptoms as previous episode of cholelithiasis. discussed trial of urodiol to assess for improvement.Patient returns on September 20, 2021. Repeating myeloma labs today. Continue with monthly subcu immunoglobulin injections.Patient seen on October 18, 2021. Patient reports nausea and discomfort has improved with urodiol.Labs performed on September 20, 2021 with SPEP without findings of monoclonal spike. Patient stated she had a dental visit last week regarding receding gumline and had a tooth pulled, he prescribed a medication to help with the discomfort but patient is unable to recall the name of the medication but she states the discomfort is much better. Will hold Xgeva this month due to dental work last week. Patient is up to date on yearly screening mammagram and due for a colonscopy this year that she will schedule.Labs on October 18, 2021 with SPEP without monoclonal spike. Immunofixation with IgG level at 520. IgA level 54 and IgM level 17. No monoclonal protein detected.Resumed Xgeva on November 15, 2021.Labs on November 15, 2021 with no evidence of monoclonal spike. IgG level at 479.Labs on December 13, 2021 with SPEP without monoclonal spike. IgG level 548.Patient has developed a weakened cough and possible mucous retention as a result of prolonged environmental exposure to chemotherapy. Patient has no one on the home to adequately perform CPT. Afflovest ordered to improve mucous clearance. Patient returns on April 11, 2022 and since last visit was seen by house mother. Patient started on percussion vest and started doing albuterol with spacer. Labs on March 15, 2022 with SPEP with no evidence of monoclonal spike. Will continue with maintenance Revlimid. Will plan see the patient back in 4 weeks. Labs on May 16, 2022 with SPEP with no evidence of monoclonal spike.Patient reports finding of right breast mass in the lateral aspect of the right breast. History of fibroglandular changes. Next mammogram is not until mid next year. Discussed mammogram of the right breast and ultrasound. Patient was scheduled for mammogram on June 11, 2022 but she had reschedule this for June 2022 due to bronchitis. Patient has started prednisone and is feeling much better. Labs on June 13, 2022 with no evidence of monoclonal spike. IgG level 532. IgG a level 52. IgM level 21. Will continue with maintenance Revlimid. Patient recently stopped maintenance Revlimid on October 01, 2022. Stoppage of therapy to assess if any improvement in respiratory status. Will try to keep patient off of maintenance Revlimid for the next month or so and reassess. Will follow-up Patient returns on November 07, 2022 for subcutaneous immunoglobulin. Patient has continued off of Revlimid maintenance. Labs on October 10, 2022 with IgG level 478. IgA level 33. IgM level 31. No evidence of monoclonal spike. Labs on November 07, 2022 with total protein 5.8. IgA 29. IgM 35. IgG level at 533. No evidence of monoclonal spike. No monoclonality detected. Restarted maintenance Revlimid December 2022. Labs on January 30, 2023 with normal kappa light chain at 19.4. Normal lambda light chain at 14.4. [place] lambda ratio at 1.35. No evidence of monoclonal protein. IgG level 702 which is in the normal range. Labs on February 27, 2023 with kappa light chain 20.3. Normal lambda light chain at 15.7. [place] lambda ratio at 1.29. No evidence of monoclonal protein. CT scan of the chest on May 10, 2023 with findings 0.9 x 0.6 precarinal lymph node. No evidence of lymphadenopathy. Bilateral consolidations consistent with likely pneumonia. Chronic healed rib fractures and osteopenia. Chronic compression fractures seen at T4, T3, T6, T8, T9, T10, T11, T12 and L1. Status post vertebroplasty at L1, T12, T11 and T10. Patient is currently being treated for pneumonia. Labs on April 24, 2023 with normal serum free light chains. Normal kappa lambda ratio at 1.1. No evidence of monoclonal spike. Patient with history of IgG lambda multiple myeloma. IgG level slightly low at 514. Patient hospitalized in late May 2023 for pneumonia as well as UTI. Revlimid was held. Patient has resumed Revlimid. Labs on July 10, 2023 with hemoglobin 9.9 and hematocrit 32.9. Platelet count 916060. Creatinine 1.8. Total protein 6.1 albumin 2.5. Calcium 8.3. Patient recently completed antibiotics for UTI. She was having dizziness and hallucinations with the UTI. This has resolved. MRI of the brain on August 30, 2023 with age-appropriate atrophy and mild chronic ischemic/gliotic changes. No acute intracranial abnormality. Labs on October 03, 2023 with kappa light chain at 21.5. Lambda light chain 14.1. [place] lambda ratio 1.52. SPEP without evidence of monoclonal spike. Patient returns on October 30, 2023. Patient continues with maintenance Revlimid. Patient feels well no acute changes. Will continue with Xgeva as well as immune globulin support. Labs on October 30, 2023 with kappa light chain at 28.9. [place] lambda ratio 1.5. Immunofixation normal. IgG level 728. Electrophoresis with no abnormal spike. Labs on November 27, 2023 with kappa light chain 21.8. No monoclonal spike observed. IgG level normal at 761. Labs on January 22, 2024 with no evidence of monoclonal spike. IgG level 696. Patient continues on maintenance Revlimid.Labs on February 19, 2024 with hemoglobin 11.1. Platelet count [id number]. Total protein 5.4. IgA level 50. IgG level 706. No evidence of monoclonal spike. Immunofixation without abnormality. Normal light chains.Patient with history of IgG lambda myeloma. Labs on April 15, 2024 with no evidence of monoclonal spike. Patient returns on May 13, 2024. Patient is doing well. She was hospitalized with bowel obstruction last month. She has recovered well. Switched to IVIG. Labs on May 13, 2024 with no evidence of monoclonal spike. Patient has recovered from bowel obstruction. Labs on June 23, 2024 with potassium 2.6 creatinine 1.7 with GFR 32. Magnesium 1.3. Albumin 2.9. Patient continues on potassium and magnesium supplementation.Labs on June 10, 2024 with no evidence of monoclonal spike. Labs on July 08, 2024 with magnesium 1.8. Phosphorus 3.5. Monoclonal spike not observed. Normal free light chains and normal free light chain ratio. Creatinine 1.4 with GFR 40. Potassium 4.2. Labs on August 05, 2024 with creatinine 1.8 and GFR 29. Labs on September 02, 2024 with normal free light chains. No evidence of monoclonal spike. B12 level normal. B6 level normal. Magnesium low at 1.6. Phosphorus in the normal range. Continued on magnesium supplementation. Labs on September 30, 2024 with normal free light chains. No evidence of monoclonal spike. Patient returns on October 28, 2024 for continued dosing of IVIG. Patient is doing well. She is planning to have an EGD later this month to evaluate her chronic cough. No changes in cough. Will follow-up repeat labs today. X-ray on September 30, 2024 performed with stable postoperative changes in the lower thoracic spine as well as lumbar spine. No evidence of new fracture. Old compression fracture seen but no new areas of bone change. Labs on October 28, 2024 with IgA level 42. IgM level 21. No evidence of monoclonal protein. Patient returns November 25, 2024 for continued IVIG dosing. Patient continues with Xgeva. Patient with continued cramping in the lower extremities. Consideration for evaluation with vascular surgery. Another consideration would be to hold the patient's Xgeva to see if any improvement as could be side effect from medication. Fernandez Jordan MD [id number], [place], [id number], [facility] - [place] & [place] 11/25/2024 09:39:27 OBGyn Episode No OBEpisode recorded.
--- OUTSIDE RECORDS SUMMARY | 2024-12-08 09:24 | XMS_ITS | Continuity of Care Document ---
Author Organization [place] - [facility] Address [address] [place] [address] Care Team Providers Care Medical Imaging Specialist Name Role Phone THAD CANALES Primary Care Provider Assessment No assessment recorded. Plan of Treatment Reminders Order Date Submit Date Provider Last Modified By Organization Details Last Modified Time Details Appointments FOLLOW UP 30 2024 09:00A M Fernandez Jordan MD Not available Not available Not available Establish ed Visit 15 min 2024 09:00A M LEONIDES COULTER NP Not available Not available Not available Lab None recorded. Referral None recorded. Procedures None recorded. Surgeries None recorded. Imaging XR, foot, 3 or more view 2024 025 JOSE [facility] - [facility], [address], [place], [address], 11/11/2024 17:31:50 Medication Orders None recorded. Patient TargetsNo targets recorded. Patient InstructionsNo instructions recorded. Reason for Referral None Reported. Results Created Date Observation Date Name Description Value Unit Range Abnormal Flag Note LastModifiedBy Organization Detail LastModifiedTime 11/12/19 25 11/11/2024 XR, foot, 3 or more view No observ ation record ed. [email or web address] In-House Imaging - [facility] [address], [place], [address], 11/12/2024 08:32:53 Result Notes None recorded. Problems Name Problem SNOMED Code Status Onset Date Resolution Date Notes Provider Name and Address Organization Details Recorded Time Pain in right foot 4275159724454 07 Active 2024 ANAHY LOONEY null, [place] - [facility] [place] 5 10:15:14 Chronic intractabl e migraine without aura 4070401455681 05 Active 2021 Not Available [facility] 4 05:24:21 Restless legs 59276499 Active Not Available [facility] 4 05:24:21 Compressio n fracture Active Not Available [facility] 4 05:24:21 Exacerbati on of moderate persistent asthma 246257034 Active Not Available [facility] 4 05:24:22 Deficiency of macronutri ents 496760476 Active Not Available [facility] 4 05:24:21 Multiple myeloma in remission 81455881 Active Not Available [facility] 4 05:24:22 Nocturia 572177451 Active Not Available [facility] 4 05:24:21 Phleboscle rosis 501999048 Active Not Available [facility] 4 05:24:21 Increased frequency of urination 409656099 Active Not Available [facility] 4 05:24:21 Selective immunoglob ulin E deficiency 714691074 Active Not Available [facility] 4 05:24:21 Gallstone 123205040 Active Not Available [facility] 4 05:24:21 Chronic kidney disease stage 3 152234893 Active Not Available [facility] 4 05:24:22 Neuropathy 862602415 Active Not Available [facility] 4 05:24:22 Asthma 900952935 Active Not Available [facility] 4 05:24:21 Unsteady when walking 45039719 Active Not Available [facility] 4 05:24:21 Hypophosph atemia 3350289 Active Not Available [facility] 4 05:24:22 Chronic pain 24872127 Active Not Available [facility] 4 05:24:22 Allergic rhinitis caused by pollen 15943248 Active Not Available [facility] 4 05:24:21 Incisional hernia 507101579 Active Not Available [facility] 4 05:24:21 Bronchitis 29706468 Active Not Available [facility] 4 05:24:21 Pain in back following surgical procedure 042858285 Active Not Available [facility] 4 05:24:21 Lymphedema 652646949 Active Not Available [facility] 4 05:24:21 Immunoglob ulin G deficiency 6788075086414 6 Active Not Available [facility] 4 05:24:21 Mixed hyperlipid emia 814283546 Active Not Available [facility] 4 05:24:21 Urge incontinen ce of urine 12794187 Active Not Available [facility] 4 05:24:22 Rectovagin al fistula 93436478 Active Not Available [facility] 4 05:24:22 Dysphagia 57986250 Active Not Available [facility] 4 05:24:22 Exacerbati on of severe persistent asthma 197289387 Active Not Available [facility] 4 05:24:22 Vitamin D deficiency 00431895 Active Not Available [facility] 4 05:24:22 Disorder of cardiovasc ular system 01315404 Active Not Available [facility] 4 05:24:22 Cholelithi asis without obstructio n 12005226 Active Not Available [facility] 4 05:24:22 Inflammato ry disease of mucous membrane 51511022 Active Not Available [facility] 4 05:24:22 Chronic bronchitis 35231932 Active Not Available [facility] 4 05:24:22 Respirator y tract infection 361906152 Active Not Available [facility] 4 05:24:21 Colostomy present 343977258 Active Not Available [facility] 4 05:24:21 Environmen krystal allergy 531668511 Active Not Available [facility] 4 05:24:22 Colovagina l fistula 882802955 Active Not Available [facility] 4 05:24:21 Total urinary incontinen ce 288080293 Active Not Available [facility] 4 05:24:21 Multiple myeloma 942024854 Active Not Available [facility] 4 05:24:21 Edema 469074196 Active Not Available [facility] 4 05:24:21 Vesicocoli c fistula 94949546 Active Not Available [facility] 4 05:24:21 Hypocalcem ia 4751306 Active Not Available [facility] 4 05:24:22 Tension-ty pe headache 658251023 Active Not Available [facility] 4 05:24:22 Gastroesop hageal reflux disease 010796008 Active Not Available [facility] 4 05:24:21 Uncomplica sacha severe persistent asthma 706101776 Active Not Available [facility] 4 05:24:22 Acute exacerbati on of chronic obstructiv e pulmonary disease 115142702 Active Not Available [facility] 4 05:24:21 Chronic renal failure 17334824 Active Not Available [facility] 4 05:24:22 Hyperlipid emia 63812390 Active Not Available [facility] 4 05:24:22 Hypokalemi a 54855811 Active Not Available [facility] 4 05:24:22 Recurrent urinary tract infection 067153700 Active Not Available [facility] 4 05:24:21 Chronic kidney disease 804524503 Active Not Available [facility] 4 05:24:22 Screening for malignant neoplasm of breast Active Not Available [facility] 4 05:24:21 Right bundle branch block 00998971 Active Not Available [facility] 4 05:24:22 Bilateral hand weakness 4816409261795 9104 Active 2022 Not Available [facility] 4 05:24:21 Laryngopha ryngeal reflux 650005024 Active 2022 Not Available [facility] 4 05:24:22 Severe persistent asthma 782857054 Active 2022 Not Available [facility] 4 05:24:22 Chronic cough 68175310 Active 2022 Not Available [facility] 4 05:24:22 Acute nontraumat ic kidney injury 3034363089260 03 Active Not Available [facility] 4 05:24:21 Nausea and vomiting 91444280 Active Not Available [facility] 4 05:24:21 Patient immunosupp ressed 119578795 Active Not Available [facility] 4 05:24:22 Community acquired pneumonia 342347796 Active Not Available [facility] 4 05:24:22 Urinary tract infectious disease 42151079 Active Not Available [facility] 4 05:24:22 Obstructiv e sleep apnea syndrome 50221323 Active 2023 Olivia Meyer DO [address], [place], [address] , [place] [facility] [place] [facility] [place] 4 09:29:47 Notes:Some problems listed i n Documents: #[id number], #[id number] could not be added to this patient's chart. Please review these documents and add these problems to the patient's chart manually as needed. Problem Notes None recorded. Procedures Surgical History Date Name Laterality Status Provider Name and Address Organization Details Recorded Time 11/04 esophagogastroduodenoscopy completed Alanna andrews [place] [facility] [place] [facility] [place] 5 14:46:48 11/04 Colonoscopy completed Karine [place] [facility] 5 14:46:57 05/18 completed Madison Wills [place] [facility] [place] 5 08:22:37 05/18 Most Recent Mammogram completed Karine [place] [facility] 5 10:16:13 02/08 polysomnography completed Karine [place] [facility] 5 10:16:45 12/05 Most Recent Bone Density completed Karine [place] [facility] 5 10:16:10 02/20 Cryosurgery completed Thad Canales MD [address], [place], [address] , [place] [facility] [place] 3 11:13:28 01/23 cholecystectomy completed Sonal [place] [facility] [place] 3 08:08:43 01/23 repair of incisional hernia completed Yaa [place] [facility] 3 08:08:21 07/22 Cholecystectomy completed Madison Wills [place] [facility] 5 08:22:47 12/15 Colonoscopy completed Karine Joy [place] [facility] 5 10:23:58 12/05 Date of Last Colonoscopy completed Madison [place] [facility] [place] 5 08:22:37 05/03 procedure on knee completed Olivia Meyer DO [address], [place], [address] , [place] [facility] [place] 3 08:57:05 07/22 Other completed Madison [place] [facility] [place] 5 08:22:47 07/06 insertion of implantable venous access port completed Olivia Meyer DO [address], [place], [address] , [place] [facility] [place] 3 08:58:24 07/06 removal of implantable venous access port completed Olivia Meyer DO [address], [place], [address] , [place] [facility] 3 08:58:40 05/22 excision of part of colon and excision of terminal ileum with ileocolic anastomosis completed Olivia Meyer DO [address], [place], [address] , [place] [facility] [place] 3 08:56:32 12/21 repair of rectovaginal fistula completed DO [address], [place], [address] , [place] [facility] [place] 3 08:55:42 07/22 kyphoplasty of fracture of spine using fluoroscopic guidance completed DO [address], [place], [address] , [place] [facility] 3 10:34:38 07/22 Other completed Madison Wills [place] [facility] 5 08:22:47 02/19 bronchoscopy completed DO [address], [place], [address] , [place] [facility] [place] 3 08:57:20 02/17 esophagogastroduodenoscopy completed Alanna Miller [place] [facility] 5 10:21:54 07/22 procedure on elbow completed DO [address], [place], [address] , [place] [facility] [place] 3 08:55:21 01/19 bone marrow biopsy, needle or trocar completed Karine Joy [place] [facility] 5 10:22:33 07/22 insertion of implantable venous access port completed DO [address], [place], [address] , [place] [facility] [place] 3 08:58:11 07/22 repair of shoulder completed Sonal S[place] - [facility] - [place] & [place] 3 08:06:30 07/22 Knee Replacement completed Sonal S[place] - [facility] - [place] & [place] 3 08:05:35 07/22 Knee Replacement completed Sonal [place]ct[place] [facility] [place] 3 08:05:25 07/22 procedure on wrist completed Sonal SEXTON - [facility] - [place] & [place] 3 08:05:02 07/22 Hysterectomy completed Sonal Ross [facility] - [place] & [place] 3 08:04:23 07/22 lumpectomy of breast completed Sonal SEXTON - [facility] [place] 3 08:04:05 hernia repair completed Delmi SEXTON - GEMMANT [facility] & [place] 3 11:09:01 section completed Sonal SEXTON - GEMMANT [facility] [place] 3 08:03:33 Colostomy completed Sonal Ross [facility] [place] 3 08:11:02 Imaging Results None recorded. Procedure Notes None recorded. Medical Equipment None Reported. Allergies Allergen ID Allergen Name Allergen Category Reaction Reaction Severity Criticality Documentation Date Start Date Code Code System Note Provider Name and Address Organization Details Recorded Time 12682 Substance with sulfonami de structure and antibacte rial mechanism of action (substanc e) medicatio n dizziness hives rash Not available Not available Not available Not available 04/11/2022 91334 8003 SNOMED criti calit y - mediu m Karine hickey, [place] - [facility] & [place] 3 07:13:57 2419 meperidin e medicatio n hives other Not available Not available low 03/29/2022 6754 RxNorm also rose d Estelleer ol; hypot ensio n, Karineabel Joy null, [place] - [facility] & [place] 5 10:29:07 87557 honey bee venom environme nt Not available Not available low 05/01/2023 02799 7 RxNorm Karineabel Joy null, [place] - [facility] & [place] 4 10:09:38 Medications Name Sig Start Date [...] propionate 50 mcg/actuati on nasal spray,suspe nsion Pilger 2 sprs by nasal route. 09/02 completed [...] 137 mcg-flutica sone 50 mcg/spray nasal spray Pilger 1 spr by nasal route. 09/18 completed [...] Updated DateTime 5 157.48 cm 32.2 kg/m2 47788.2 6 g 98.3 [degF] 99 % 99 % 80 /min 134 mm[Hg] 82 mm[Hg] [facility] & [place] 5 09:01:05 Social History Question Answer Notes LastModified by Organizat ion Details LastModified Time Tobacco Smoking Status Never Smoker Not Available [facility] 08/19/2023 11:22:25 Do You Have An Advance [...] Do In The Last 7 Days? 0 [email or web address] Information not available 11/30/2024 Have You Recently Or Are You Planning To Travel To An Area With Zika Virus? No CHART_MERGE Information not available 08/19/2023 In General, Would You Say Your Health Is Fair [email or web address] Information not available 10/31/2022 How Would You Describe The Condition Of Your Mouth And Teeth? including False Teeth Or Dentures? Fair [email or web address] Information not available 10/31/2022 In The Past 7 Days, How Many Servings Of Fruits And Vegetables Did You Typically Eat Each Day? (1 Serving = 1 Cup Of Fresh Vegetables, 1? 2 Cup Of Cooked Vegetables, Or 1 Medium Piece Of Fruit. 1 Cup = Size Of A Baseball.) 3-4 Servings Per Day [email or web address] Information not available 11/30/2024 In The Past 7 Days, How Many Servings Of High Fiber Or Whole Grain Foods Did You Typically Eat Each Day? (1 Serving = 1 Slice Of 100% Whole Wheat Bread, 1 Cup Of Whole-grain Or High-fiber Htmus-wj-flp Cereal, 1? 2 Cup Of Cooked Cereal Such As Oatmeal, Or 1? 2 Cup Of Cooked Brown Rice Or Whole Wheat Pasta.) 1-2 Servings Per Day [email or web address] Information not available 11/30/2024 In The Past 7 Days, How Many Servings Of Fried Or High-fat Foods Did You Typically Eat Each Day? (Examples Include Fried Chicken, Fried Fish, [place], Monegasque Weiner, Potato Chips, [place] Chips, Doughnuts, Creamy Salad Dressings, And Foods Made With Whole Milk, Cream, Cheese, Or Mayonnaise.) 0 Servings Per Day [email or web address] Information not available 11/30/2024 In The Past 7 Days, How Many Sugar-sweetened (not Diet) Beverages Did You Typically Consume Each Day 1-2 Drinks Per Day [email or web address] Information not available 11/30/2024 Each Night, How Many Hours Of Sleep Do You Usually Get? Less Than 5 Hours [email or web address] Information not available 10/31/2022 Do You Snore Or Has Anyone Told You That You Snore? Yes [email or web address] Information not available 10/31/2022 In The Past 7 Days, How Often Have You [place] Sleepy During The Daytime? Always [email or web address] Information not available 10/31/2022 Do You Have Chronic Pain? Yes [email or web address] Information not available 10/31/2022 If Yes, Location Of Pain Neuropathy, Drawing Of Hands And Feet, [place] [email or web address] Information not available 10/31/2022 In The Past 7 Days, How Would You Rate Your Pain? Severe Pain(7-9) [email or web address] Information not available 10/31/2022 Are You In A Pain Management Program? No [email or web address] Information not available 10/31/2022 Do You Take Opioids For Your Pain? Yes [email or web address] Information not available 10/31/2022 How Often Is Stress A Problem For You In Handling Such Things As: Your Health, Your Finances, Your Family And Social Relationships, Your Work? Never Or Rarely [email or web address] Information not available 10/31/2022 How Often Do You Get The Social And Emotional Support You Need: Always [email or web address] Information no t available 10/31/2022 In The Past 7 Days, Did You Need Help From Others To Take Care Of Things Such As Laundry And Housekeep- Ing, Banking, Shopping, Using The Telephone, Food Preparation, Transportation, Or Taking Your Own Medications? Yes Information not available 11/30/2024 Do You Live Alone? No [email or web address] Information not available 10/31/2022 Does Your Home Have Any Fall Risks (un-level Floors, Unfastened Rugs, Poor Lighting, Etc)? No [email or web address] Information not available 10/31/2022 Do You Feel Safe At Home? Yes Information not available 11/28/2023 Do You Have A Medical Power Of Padded Products Finisher? Yes Information not available 11/28/2023 What Was The Date Of Your Most Recent Tobacco Screening? 01/20/2024 [email or web address] Information not available 01/30/2024 How Many Children Do You Have? 2 Information not available 11/30/2024 Do You Have Any Pets? No CHART_MERGE Information not available 08/19/2023 What Is Your Relationship Status? Lives With In A House CHART_MERGE Information not available 08/19/2023 Do You Use Your Seat Belt Or Car Seat Routinely? Yes CHART_MERGE Information not available 08/19/2023 Are You Sexually Active? No [email or web address] Information not available 11/30/2024 Are You Passively Exposed To Smoke? No CHART_MERGE Information no t available 08/19/2023 Has Tobacco Cessation Counseling Been Provided? No CHART_MERGE Information not available 08/19/2023 How Many Years Have You Smoked Tobacco? 0 [email or web address] Information not available 01/30/2024 Do You Have Difficulty Walking Or Climbing Stairs? Yes CHART_MERGE Information not available 08/19/2023 Are You Currently In School? 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 [id number] CHART_MERGE Information not available 08/19/2023 Do you [...] Hep A, adult 8 completed Not Available [facility] 09/04/2023 05:24:25 Influenza, split virus, quadrivalent, PF 0 completed Not Available [facility] 09/04/2023 05:24:25 Td (adult), 2 Lf tetanus toxoid, preservative free, adsorbed 7 completed Not Available [facility] 09/04/2023 05:24:25 COVID-19, mRNA, LNP-S, PF, 100 mcg/0.5mL dose or 50 mcg/0.25mL dose 1 completed Not Available [facility] 09/04/2023 05:24:25 Influenza, split virus, trivalent, PF 6 completed Not Available [facility] 09/04/2023 05:24:25 Hep A, adult 9 completed Not Available [facility] 09/04/2023 05:24:25 COVID-19, mRNA, LNP-S, PF, 100 mcg/0.5mL dose or 50 mcg/0.25mL dose 1 completed Not Available [facility] 09/04/2023 05:24:25 Influenza, split virus, quadrivalent, PF 1 completed Not Available [facility] 09/04/2023 05:24:25 Influenza, adjuvanted, quadrivalent, PF 3 completed Not Available [facility] 09/04/2023 05:24:25 COVID-19, mRNA, LNP-S, bivalent, PF, 50 mcg/0.5 mL or 25mcg/0.25 mL dose 3 completed Not Available [facility] 09/04/2023 05:24:25 Influenza, high-dose, quadrivalent, PF 3 completed Not Available [facility] 09/04/2023 05:24:25 Pneumococcal conjugate PCV20, polysaccharide HBL123 conjugate, adjuvant, PF 3 completed Not Available [facility] 09/04/2023 05:24:25 RSV, recombinant, protein subunit RSVpreF, adjuvant reconstituted, 0.5 mL, PF 3 completed Not Available [facility] 09/04/2023 05:24:25 influenza, unspecified formulation 4 completed Karine Joy null, [place] [facility] [place] 04/24/2024 10:10:34 pneumococcal, unspecified formulation 1 completed Karine [place] [facility] 04/24/2024 10:10:47 Influenza, adjuvanted, trivalent, PF 4 completed Thad Canales MD [address] [facility], [place], [address], [place] [facility] [place] 05/19/2024 13:06:50 SARS-COV-2 (COVID-19) vaccine, UNSPECIFIED 1 completed Karine Joy [place] [facility] 09/17/2024 10:20:01 Tdap 5 completed Madison Wills null[place] [facility] [place] 11/30/2024 09:53:01 Past Encounters Encounter ID Performer Location Encounter Start Date Encounter Closed Date Diagnosis/Indication Diagnosis SNOMED-CT Code Diagnosis ICD10 Code Diagnosis Note [id number] Kay Perez PA-C [facility] [address] [place] [address] 10/28/2024 08:41:27 10/28/2024 09:02:01 Multiple myeloma 655775080 C90.00 IgG Lambda multiple myeloma. ISS stage [...] peripheral neuropathy . Patient continued on Revlimid/d choloethaso linda and given complete response on recent bone [...] reduction of skeletal related events in July 2021.Patie nt recently stopped maintenanc e Revlimid on October 01, 2022. Stoppage of therapy to assess if any improvemen t in respirator y status.Res tarted maintenanc e Revlimid in December 2022.Patie nt with history of IgG lambda myeloma. [...] labs today. 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 Anemia 605587450 D64.9 mild anemiaPati ent with history of chronic kidney disease. Iron studies normal on September 02, 2024. Normal B12 and folate. Suspect impact of chronic kidney disease.wi follow up labs today. 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 Will continue with as needed Lasix. Pain due t o neoplastic disease 2544141393 9102 G89.3 History of multiple bone fractures secondary to myeloma. Patient currently on oxycodone as needed. Patient previously on fentanyl patch 37.5 mcg every 72 hours. Patch is no longer being paid for by patient's insurance. Recently had to try 25 mcg patch. Dose decreased to 25 mcg patch. Chronic as thmatic bronchitis 332104638 J44.9 Patient has been seen by trust advisor in [facility] and is due to start Tezspire [...] Ativan. Chronic ki dney disease stage 3B 652007400 N18.32 Labs on July 10, 2023 with Creatinine 1.8. GFR less than 30 consistent with stage IIIB chronic kidney disease. Will send erythropoi etin level. Hypokalemia 43377623 E87 .6 Labs on June 23, 2024 with potassium 2.6 creatinine 1.7 with GFR 32. Magnesium 1.3. Albumin 2.9. Patient continues on potassium and magnesium supplement ation. Patient continues on oral potassium 20 mEq daily. Will follow-up repeat labs today. Menopausal flushing 1983 81609 N95.1 Patient interested in trying new medication for hot flashes [place]. Only limitation would be patient's chronic kidney disease. If GFR was below 30 would not recommend using. Will send in prescripti on.Patient started on low-dose effexor. Will follow-up for any improvemen t. Drug-induc ed mucositis 660194662 K12.32 Continues with magic mouthwash prn. Nausea 244324175 R11.0 as needed zofran and promethazi ne. Hypomagnesemia 981142006 E83.42 Labs on May 13, 2024 with critical magnesium 1.2. Will give 2 g IV magnesium. Patient is taking magnesium 400 mg p.o. daily. Patient continues on magnesium supplement ation. Will follow up labs today. Low back pain 267349067 M54.50 Patient had fall at home and [...] Long-term current use of intravenous immune globulin [id number] 57511 Z79.899 Started subcutaneo us IVIG therapy in May 2019. Tolerating well at this point.Over all improving respirator y status. Will continue as patient is tolerating well.Patie nt continues with every 4 week IVIG supplement ation. Will follow up CBC and CMP prior to IVIG and Xgeva administra tion to monitor for toxicity. [id number] Thad Canales MD [facility] [address] [facility] [address] [place] [address] 10/20/2024 10:00:20 10/20/2024 10:35:35 Clouded consciousness [id number] R41.0 [id number] Thad Canaels MD [facility] [address] [facility] [address] [place] [address] 11/11/2024 08:44:49 11/11/2024 09:54:14 Pain in right foot [id number] M79.671 Osteoporosis [id number] M8 1.0 [id number] Marco Meyer MD [facility] [address] [facility] [address] [place] [address] 11/11/2024 10:10:16 11/11/2024 10:35:36 Pain in right foot [id number] M79.671 Health Concerns Section Related Observation LastModified by Organization Detai ls LastModified Time None Recorded Concern Status LastModified by Organization Details LastModified Time None Recorded Payers Encounter Date Sequence Insurance Name Policy Number Policy Mahoney Covered Member ID Mahoney Member ID Guarantor Name 11/11/2024 1 [place] Salima Burrell [id number] Salima Burrell 11/11/2024 2 [employer] - [employer] (MEDICARE SUPPLEMENT) Salima Burrell [id number] Salima Burrell Notes Date Note Type Note [...] personal history of gout. Thad Canales MD [address], [place], [address], [facility] [place] - [place] & [place] 11/11/2024 15:01:25 OBGyn Episode No OBEpisode recorded.
--- OUTSIDE RECORDS SUMMARY | 2024-12-08 09:24 | XMS_ITS | Continuity of Care Document ---
Author Organization [facility] Address [address] [place] [address] Care Team Providers Care Nail Machine Operator Name Role Phone THAD CANALES Primary Care Provider [phone] Assessment No assessment recorded. Plan of Treatment Reminders Order Date Submit Date Provider Last Modified By Organization Details Last Modified Time Details Appointments FOLLOW UP 30 2024 09:00A M Fernandez Antonio MD Not available Not available Not available Establish ed Visit 15 min 2024 09:00A M LEONIDES COULTER NP Not available Not available Not available Lab magnesium , serum or plasma 2024 025 [email or web address] [facility], [address] [place], [address], 11/04/2024 11:22:03 phosphoru s, serum or plasma 2024 025 [facility], [address] [place], [address], 10/28/2024 09:49:53 CBC w/ auto diff 2024 025 [email or web address] [facility], [address] [place], [address], 11/04/2024 11:22:03 CMP, serum or plasma 2024 025 [facility], [address] [place], [address], 10/28/2024 09:48:42 immunofix ation + protein electroph oresis + free light chains, serum 2024 025 [email or web address] [facility], [address] [facility], [place], [address], 11/04/2024 11:22:03 Referral None recorded. Procedures None recorded. Surgeries None recorded. Imaging None recorded. Medication Orders None recorded. Patient TargetsNo targets recorded. Patient InstructionsNo instructions recorded. Reason for Referral None Reported. Results Created Date Observation Date Name Description Value Unit Range Abnormal Flag Note LastModifiedBy Organization Detail LastModifiedTime 10/01/1909/30/2024 lumba r spine 4V min [facility] [address] [place] [address] Phone: Fax: Name: SALIMA KRAMER Exam Date: : 1949 Age 74 years Gender : F Access ion: [id number] Physic bin: FERNANDEZ ANTONIO Facili ty[facility] Facili ty HSV: Outpat ient Exam: LUMBAR SPINE 4V MIN PROCED URE DESCRI PTION: XR LUMBAR SPINE 4 OR MORE VIEWS CLINIC AL INDICA TION: Low back pain, fall 2 weeks ago, kyphop lasty in 016. TECHNI QUE: 4 views / 5 images submit sacha. COMPAR KHUSHBU: CT Abdome n Pelvis 2023. FINDIN GS: For purpos es of this dictat ion, it is assume d that there are 5 lumbar type verteb ral bodies . There are postop erativ e change s from the verteb roplas ty at T10, T11, T12, L1, and L3. There are multil evel endpla te degene rative change s of the lumbar spine. There are multil evel endpla te degene rative change s of the lumbar spine. There are multip le old compre ssion fractu res involv ing the thorac ic and lumbar spine. IMPRES BRANT: Stable postop erativ e change s from verteb roplas ty. Electr onical ly signed by: Emile robertson MD 2024 03:02 PM EDT RP Workst ation: [id number] Dictat ed By: EMILE EVANS Transc ribed By: Transc ribed On: 025 1:02 PM Electr onical ly signed by: EMILE EVANS 025 Thank you for referr SALIMA Brown to [facility]. Legall y authen ticate d by DIPIKA RAY W 09-30 13:02: 30 CC'ed Logic: Orderi ng Provid er: MARISELA LUCERO Attend ing Provid er: MARISELA LUCERO Admitt ing Provid er: MARISELA LUCERO [facility] [address], [place], [address], 10/01/2024 14:46:42 11/12/19 25 11/11/2024 XR, foot, 3 or more view No observ ation record ed. [email or web address] [facility]-House [facility] - [facility] [address], [place], [address], 11/12/2024 08:32:53 Result Notes None recorded. Problems Name Problem SNOMED Code Status Onset Date Resolution Date Notes Provider Name and Address Organization Details Recorded Time Pain in right foot 8952887461137 07 Active 2024 ANAHY LOONEY [facility], [facility] - [place] & [place] 5 10:15:14 Chronic intractabl e migraine without aura 9813610452313 05 Active 2021 Not Available [facility] 4 05:24:21 Restless legs 45929116 Active Not Available [facility] 4 05:24:21 Compressio n fracture Active Not Available [facility] 4 05:24:21 Exacerbati on of moderate persistent asthma 603862294 Active Not Available [facility] 4 05:24:22 Deficiency of macronutri ents 164394973 Active Not Available [facility] 4 05:24:21 Multiple myeloma in remission 71473110 Active Not Available [facility] 4 05:24:22 Nocturia 388428861 Active Not Available [facility] 4 05:24:21 Phleboscle rosis 353105220 Active Not Available [facility] 4 05:24:21 Increased frequency of urination 069971019 Active Not Available [facility] 4 05:24:21 Selective immunoglob ulin E deficiency 384318304 Active Not Available [facility] 4 05:24:21 Gallstone 008554090 Active Not Available [facility] 4 05:24:21 Chronic kidney disease stage 3 232085145 Active Not Available [facility] 4 05:24:22 Neuropathy 587149961 Active Not Available [facility] 4 05:24:22 Asthma 481490337 Active Not Available [facility] 4 05:24:21 Unsteady when walking 81572860 Active Not Available [facility] 4 05:24:21 Hypophosph atemia 9819218 Active Not Available [facility] 4 05:24:22 Chronic pain 12436687 Active Not Available [facility] 4 05:24:22 Allergic rhinitis caused by pollen 79380555 Active Not Available [facility] 4 05:24:21 Incisional hernia 699742744 Active Not Available [facility] 4 05:24:21 Bronchitis 19788130 Active Not Available [facility] 4 05:24:21 Pain in back following surgical procedure 592555392 Active Not Available [facility] 4 05:24:21 Lymphedema 324461930 Active Not Available [facility] 4 05:24:21 Immunoglob ulin G deficiency 1220433616700 6 Active Not Available [facility] 4 05:24:21 Mixed hyperlipid emia 824877835 Active Not Available [facility] 4 05:24:21 Urge incontinen ce of urine 52384878 Active Not Available [facility] 4 05:24:22 Rectovagin al fistula 04762618 Active Not Available [facility] 4 05:24:22 Dysphagia 44930509 Active Not Available [facility] 4 05:24:22 Exacerbati on of severe persistent asthma 459575049 Active Not Available [facility] 4 05:24:22 Vitamin D deficiency 83183913 Active Not Available [facility] 4 05:24:22 Disorder of cardiovasc ular system 54770098 Active Not Available [facility] 4 05:24:22 Cholelithi asis without obstructio n 14928210 Active Not Available [facility] 4 05:24:22 Inflammato ry disease of mucous membrane 29536609 Active Not Available [facility] 4 05:24:22 Chronic bronchitis 84516965 Active Not Available [facility] 4 05:24:22 Respirator y tract infection 874406022 Active Not Available [facility] 4 05:24:21 Colostomy present 731603134 Active Not Available [facility] 4 05:24:21 Environmen krystal allergy 570394697 Active Not Available [facility] 4 05:24:22 Colovagina l fistula 328872999 Active Not Available [facility] 4 05:24:21 Total urinary incontinen ce 521302278 Active Not Available [facility] 4 05:24:21 Multiple myeloma 500474152 Active Not Available [facility] 4 05:24:21 Edema 177682216 Active Not Available [facility] 4 05:24:21 Vesicocoli c fistula 38981578 Active Not Available [facility] 4 05:24:21 Hypocalcem ia 4025743 Active Not Available [facility] 4 05:24:22 Tension-ty pe headache 498084933 Active Not Available [facility] 4 05:24:22 Gastroesop hageal reflux disease 299520750 Active Not Available [facility] 4 05:24:21 Uncomplica sacha severe persistent asthma 500979897 Active Not Available [facility] 4 05:24:22 Acute exacerbati on of chronic obstructiv e pulmonary disease 502557901 Active Not Available [facility] 4 05:24:21 Chronic renal failure 96217393 Active Not Available [facility] 4 05:24:22 Hyperlipid emia 27920082 Active Not Available [facility] 4 05:24:22 Hypokalemi a 21717306 Active Not Available [facility] 4 05:24:22 Recurrent urinary tract infection 677727740 Active Not Available [facility] 4 05:24:21 Chronic kidney disease 681236999 Active Not Available [facility] 4 05:24:22 Screening for malignant neoplasm of breast Active Not Available [facility] 4 05:24:21 Right bundle branch block 47671004 Active Not Available [facility] 4 05:24:22 Bilateral hand weakness 6114350608491 9104 Active 2022 Not Available [facility] 4 05:24:21 Laryngopha ryngeal reflux 926171156 Active 2022 Not Available [facility] 4 05:24:22 Severe persistent asthma 729023129 Active 2022 Not Available [facility] 4 05:24:22 Chronic cough 68920470 Active 2022 Not Available [facility] 4 05:24:22 Acute nontraumat ic kidney injury 0228427536931 03 Active Not Available [facility] 4 05:24:21 Nausea and vomiting 21347203 Active Not Available [facility] 4 05:24:21 Patient immunosupp ressed 199950960 Active Not Available [facility] 4 05:24:22 Community acquired pneumonia 370763910 Active Not Available [facility] 4 05:24:22 Urinary tract infectious disease 45397095 Active Not Available [facility] 4 05:24:22 Obstructiv e sleep apnea syndrome 65221359 Active 2023 Olivia Meyer, DO [address] , [place], [address] , [facility] & [place] 4 09:29:47 Notes:Some problems listed i n Documents: #[id number], #[id number] could not be added to this patient's chart. Please review these documents and add these problems to the patient's chart manually as needed. Problem Notes None recorded. Procedures Surgical History Date Name Laterality Status Provider Name and Address Organization Details Recorded Time 11/04 esophagogastroduodenoscopy completed Alanna andrews [place] [facility] - [place] & [place] 5 14:46:48 11/04 Colonoscopy completed Karine [place] [facility] [place] 5 14:46:57 05/18 completed Madison Wills [place] [facility] [place] 5 08:22:37 05/18 Most Recent Mammogram completed Karine [place] [facility] [place] 5 10:16:13 02/08 polysomnography completed Karine [place] [facility] [place] 5 10:16:45 12/05 Most Recent Bone Density completed Karine [place] [facility] [place] 5 10:16:10 02/20 Cryosurgery completed Thad Canales MD [address] [facility], [place], [address] [facility] [place] [facility] [place] 3 11:13:28 01/23 cholecystectomy completed Sonal [place] [facility] [place] & [place] 3 08:08:43 01/23 repair of incisional hernia completed Yaa [place] [facility] [place] 3 08:08:21 07/22 Cholecystectomy completed Madison [place]ills [place] [facility] [place] 5 08:22:47 12/15 Colonoscopy completed Karine [place] [facility] [place] 5 10:23:58 12/05 Date of Last Colonoscopy completed Madison [place]ills [place] [facility] [place] 5 08:22:37 05/03 procedure on knee completed Olivia Meyer DO [address], [place], [address] , [place] [facility] [place] 3 08:57:05 07/22 Other completed Madison Wills [place] [facility] & [place] 5 08:22:47 07/06 insertion of implantable venous access port completed Olivia Meyer DO [address], [place], [address] , [place] [facility] [place] 3 08:58:24 07/06 removal of implantable venous access port completed DO Marli [address], [place], [address] , [place] [facility] & [place] 3 08:58:40 05/22 excision of part of colon and excision of terminal ileum with ileocolic anastomosis completed Olivia Meyer DO [address], [place], [address] , [place] [facility] [place] 3 08:56:32 12/21 repair of rectovaginal fistula completed DO Marli [address], [place], [address] , [place] [facility] & [place] 3 08:55:42 07/22 kyphoplasty of fracture of spine using fluoroscopic guidance completed DO [address], [place], [address] , [place] [facility] & [place] 3 10:34:38 07/22 Other completed Madison [place]ills [place] [facility] & [place] 5 08:22:47 02/19 bronchoscopy completed DO Marli [address], [place], [address] , [place] [facility] [place] & [place] 3 08:57:20 02/17 esophagogastroduodenoscopy completed Alanna Miller [place] [facility] [place] 5 10:21:54 07/22 procedure on elbow completed Olivia Meyer DO [address], [place], [address] , [place] [facility] [place] 3 08:55:21 01/19 bone marrow biopsy, needle or trocar completed Karine Joy [place] [facility] [place] 5 10:22:33 07/22 insertion of implantable venous access port completed DO [address], [place], [address] , [place] [facility] [place] 3 08:58:11 07/22 repair of shoulder completed Sonal [place] [facility] [place] 3 08:06:30 07/22 Knee Replacement completed Sonal [place] [facility] [place] 3 08:05:35 07/22 Knee Replacement completed Sonal [place] [facility] [place] 3 08:05:25 07/22 procedure on wrist completed Sonal [place] [facility] [place] 3 08:05:02 07/22 Hysterectomy completed Sonal [place] [facility] [place] 3 08:04:23 07/22 lumpectomy of breast completed Sonal [place] [facility] [place] 3 08:04:05 hernia repair completed Delmi Weinstein [place] [facility] [place] 3 11:09:01 section completed Sonal [place] [facility] [place] 3 08:03:33 Colostomy completed Sonal [place] [facility] [place] 3 08:11:02 Imaging Results None recorded. Procedure Notes None recorded. Medical Equipment None Reported. Allergies Allergen ID Allergen Name Allergen Category Reaction Reaction Severity Criticality Documentation Date Start Date Code Code System Note Provider Name and Address Organization Details Recorded Time 62569 Substance with sulfonami de structure and antibacte rial mechanism of action (substanc e) medicatio n dizziness hives rash Not available Not available Not available Not available 04/11/2022 76684 8003 SNOMED criti calit y - mediu m Karine Schaef[place]amer null, [place] [facility] [place] [facility] [place] 3 07:13:57 2419 meperidin e medicatio n hives other Not available Not available low 03/29/2022 6754 RxNorm also rose Vivas ol; hypot ensio n, Karine Silvanoamer null, [place] [facility] [place] & [place] 5 10:29:07 36325 honey bee venom environme nt Not available Not available low 05/01/2023 88140 7 RxNorm Karine [place] null, [place] [facility] [place] 4 10:09:38 Medications Name Sig Start Date [...] propionate 50 mcg/actuati on nasal spray,suspe nsion [place] 2 sprs by nasal route. 09/02 completed [...] 137 mcg-flutica sone 50 mcg/spray nasal spray [place] 1 spr by nasal route. 09/18 completed [...] completed Not Available Not Available Not Available Lizz Aerosphere 160 mcg-9mcg-4. 8mcg/actuat ion HFA aerosol inhaler INHALE 2 PUFFS BY MOUTH TWICE DAILY active Not Available Not Available No t Available Trelehanh Ellipta 200 mcg-62.5 mcg-25 mcg powder for [...] Details Last Updated DateTime 5 157.48 cm 32.4 kg/m2 80998.8 5 g 97.3 [degF] 96 % 96 % 74 /min 124 mm[Hg] 60 mm[Hg] Alanna Yaner [place] [facility] & [place] 5 08:47:07 Social History Question Answer Notes LastModified by Organizat ion Details LastModified Time Tobacco Smoking Status Never Smoker Not Available [facility] 08/19/2023 11:22:25 Do You Have An Advance [...] Do In The Last 7 Days? 0 [email or web address] Information not available 11/30/2024 Have You Recently Or Are You Planning To Travel To An Area With Zika Virus? No CHART_MERGE Information not available 08/19/2023 In General, Would You Say Your Health Is Fair [email or web address] Information not available 10/31/2022 How Would You Describe The Condition Of Your Mouth And Teeth? including False Teeth Or Dentures? Fair [email or web address] Information not available 10/31/2022 In The Past 7 Days, How Many Servings Of Fruits And Vegetables Did You Typically Eat Each Day? (1 Serving = 1 Cup Of Fresh Vegetables, 1? 2 Cup Of Cooked Vegetables, Or 1 Medium Piece Of Fruit. 1 Cup = Size Of A Baseball.) 3-4 Servings Per Day [email or web address] Information not available 11/30/2024 In The Past 7 Days, How Many Servings Of High Fiber Or Whole Grain Foods Did You Typically Eat Each Day? (1 Serving = 1 Slice Of 100% Whole Wheat Bread, 1 Cup Of Whole-grain Or High-fiber Ulylt-hn-fdx Cereal, 1? 2 Cup Of Cooked Cereal Such As Oatmeal, Or 1? 2 Cup Of Cooked Brown Rice Or Whole Wheat Pasta.) 1-2 Servings Per Day [email or web address] Information not available 11/30/2024 In The Past 7 Days, How Many Servings Of Fried Or High-fat Foods Did You Typically Eat Each Day? (Examples Include Fried Chicken, Fried Fish, [place], [place]ian [place], Potato Chips, Bagley Chips, Doughnuts, Creamy Salad Dressings, And Foods Made With Whole Milk, Cream, Cheese, Or Mayonnaise.) 0 Servings Per Day [email or web address] Information not available 11/30/2024 In The Past 7 Days, How Many Sugar-sweetened (not Diet) Beverages Did You Typically Consume Each Day 1-2 Drinks Per Day [email or web address] Information not available 11/30/2024 Each Night, How Many Hours Of Sleep Do You Usually Get? Less Than 5 Hours [email or web address] Information not available 10/31/2022 Do You Snore Or Has Anyone Told You That You Snore? Yes [email or web address] Information not available 10/31/2022 In The Past 7 Days, How Often Have You Beulah Sleepy During The Daytime? Always [email or web address] Information not available 10/31/2022 Do You Have Chronic Pain? Yes [email or web address] Information not available 10/31/2022 If Yes, Location Of Pain Neuropathy, Drawing Of Hands And Feet, [place] [email or web address] Information not available 10/31/2022 In The Past 7 Days, How Would You Rate Your Pain? Severe Pain(7-9) [email or web address] Information not available 10/31/2022 Are You In A Pain Management Program? No [email or web address] Information not available 10/31/2022 Do You Take Opioids For Your Pain? Yes [email or web address] Information not available 10/31/2022 How Often Is Stress A Problem For You In Handling Such Things As: Your Health, Your Finances, Your Family And Social Relationships, Your Work? Never Or Rarely [email or web address] Information not available 10/31/2022 How Often Do You Get The Social And Emotional Support You Need: Always [email or web address] Information no t available 10/31/2022 In The Past 7 Days, Did You Need Help From Others To Take Care Of Things Such As Laundry And Housekeep- Ing, Banking, Shopping, Using The Telephone, Food Preparation, Transportation, Or Taking Your Own Medications? Yes [email or web address] Information not available 11/30/2024 Do You Live Alone? No [email or web address] Information not available 10/31/2022 Does Your Home Have Any Fall Risks (un-level Floors, Unfastened Rugs, Poor Lighting, Etc)? No [email or web address] Information not available 10/31/2022 Do You Feel Safe At Home? Yes Information not available 11/28/2023 Do You Have A Medical Power Of Route Process Administrator? Yes Information not available 11/28/2023 What Was The Date Of Your Most Recent Tobacco Screening? 01/20/2024 [email or web address] Information not available 01/30/2024 How Many Children Do You Have? 2 [email or web address] Information not available 11/30/2024 Do You Have Any Pets? No CHART_MERGE Information not available 08/19/2023 What Is Your Relationship Status? Lives With In A House CHART_MERGE Information not available 08/19/2023 Do You Use Your Seat Belt Or Car Seat Routinely? Yes CHART_MERGE Information not available 08/19/2023 Are You Sexually Active? No [email or web address] Information not available 11/30/2024 Are You Passively Exposed To Smoke? No CHART_MERGE Information no t available 08/19/2023 Has Tobacco Cessation Counseling Been Provided? No CHART_MERGE Information not available 08/19/2023 How Many Years Have You Smoked Tobacco? 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 [id number] CHART_MERGE Information not available 08/19/2023 Do you [...] 025 08:54:03 Notes:1 sister, 1 son 1 dashawn hter, Medical History Condition Response Allergies (Food, [...] Hep A, adult 8 completed Not Available [facility] 09/04/2023 05:24:25 Influenza, split virus, quadrivalent, PF 0 completed Not Available [facility] 09/04/2023 05:24:25 Td (adult), 2 Lf tetanus toxoid, preservative free, adsorbed 7 completed Not Available [facility] 09/04/2023 05:24:25 COVID-19, mRNA, LNP-S, PF, 100 mcg/0.5mL dose or 50 mcg/0.25mL dose 1 completed Not Available [facility] 09/04/2023 05:24:25 Influenza, split virus, trivalent, PF 6 completed Not Available [facility] 09/04/2023 05:24:25 Hep A, adult 9 completed Not Available [facility] 09/04/2023 05:24:25 COVID-19, mRNA, LNP-S, PF, 100 mcg/0.5mL dose or 50 mcg/0.25mL dose 1 completed Not Available [facility] 09/04/2023 05:24:25 Influenza, split virus, quadrivalent, PF 1 completed Not Available [facility] 09/04/2023 05:24:25 Influenza, adjuvanted, quadrivalent, PF 3 completed Not Available [facility] 09/04/2023 05:24:25 COVID-19, mRNA, LNP-S, bivalent, PF, 50 mcg/0.5 mL or 25mcg/0.25 mL dose 3 completed Not Available [facility] 09/04/2023 05:24:25 Influenza, high-dose, quadrivalent, PF 3 completed Not Available [facility] 09/04/2023 05:24:25 Pneumococcal conjugate PCV20, polysaccharide [id number] conjugate, adjuvant, PF 3 completed Not Available [facility] 09/04/2023 05:24:25 RSV, recombinant, protein subunit RSVpreF, adjuvant reconstituted, 0.5 mL, PF 3 completed Not Available [facility] 09/04/2023 05:24:25 influenza, unspecified formulation 4 completed Karine [place] [facility] [place] 04/24/2024 10:10:34 pneumococcal, unspecified formulation 1 completed Karine [place] [facility] [place] 04/24/2024 10:10:47 Influenza, adjuvanted, trivalent, PF 4 completed Thad Canales MD [address] [facility], [place], [address], [place] [facility] [place] [facility] [place] 05/19/2024 13:06:50 SARS-COV-2 (COVID-19) vaccine, UNSPECIFIED 1 completed Karine [place] [facility] [place] 09/17/2024 10:20:01 Tdap 5 completed Madison [place] null[place] [facility] [place] 11/30/2024 09:53:01 Past Encounters Encounter ID Performer Location Encounter Start Date Encounter Closed Date Diagnosis/Indication Diagnosis SNOMED-CT Code Diagnosis ICD10 Code Diagnosis Note [id number] Fernandez Antonio MD [facility] [address] [facility] [address] [place] [address] 09/30/2024 08:41:40 09/30/2024 09:10:14 Multiple myeloma 435888519 C90.00 IgG Lambda multiple myeloma. ISS stage [...] in the normal range. Continued on magnesium supplement ation. Patient returns on September 30, 2024 for continued dosing of IVIG. Will follow-up repeat labs today. 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 The low end of normal is 700. I discussed with her infusional IgG supplement ation on a monthly basis due to likely suppressio n from multiple myeloma as well as the treatment required for multiple myeloma.St nielsen monthly IV Ig on April 16, 2018.Labs [...] every 4 week IVIG supplement ation. Anemia [id number] D64.9 mild anemia, will follow up additional labs.Kayley lerner with history of chronic kidney disease. Iron studies normal on September 02, 2024. Normal B12 and folate. Suspect impact of chronic kidney disease. 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 Over the last month slight increase in neuropathy symptoms. Using oxycodone slightly more during this time. Will follow-up discussed potential adjustment of dosing however patient previously had trouble with gabapentin at higher doses with mental status changes.Cu rrently taking gabapentin 300 mg 2 tabs p.o. q.8 hours p.r.n..Katy corrine recently started taking low-dose Effexor. Will follow-up On visit on September 02, 2024 patient reported having to take an extra dose of gabapentin . Reports more cramping in her feet. Denies any increase in swelling. Will follow-up labs today. Lymphedema of lower extremity [id number] I89.0 Lower extremity compressio n stockings in place. Will continue with as needed Lasix. Pain due t o neoplastic disease [id number] 9102 G89.3 History of multiple bone fractures secondary to myeloma. Patient currently on oxycodone as needed. Patient on fentanyl patch 37.5 mcg every 72 hours. Patch is no longer being paid for by patient's insurance. Recently had to try 25 mcg patch. On next refill will decrease to 25 mcg patch. Chronic as thmatic bronchitis [id number] J44.9 Patient has been seen by clinical applications manager in [facility] and is due to start Tezspire (Tezepelum ab). Monoclonal antibody is a monthly infusion. No reported interactio n with Revlimid. Will follow-up tolerabili ty hopeful improvemen t. Nausea and vomiting 1692 1999 R11.2 Patient with nausea. Will send prescripti on for Zofran. Trial of Reglan with increase in muscle spasms most notably the lower legs. Stopped Reglan. Will try Compazine. If needed can add Ativan. Chronic ki dney disease stage 3B [id number] N18.32 Labs on July 10, 2023 with Creatinine 1.8. GFR less than 30 consistent with stage IIIB chronic kidney disease. Will send erythropoi etin level. Hypokalemia 09362345 E87 .6 Labs on June 23, 2024 with potassium 2.6 creatinine 1.7 with GFR 32. Magnesium 1.3. Albumin 2.9. Patient continues on potassium and magnesium supplement ation. Labs on July 08, 2024 with magnesium 1.8. Phosphorus 3.5. Monoclonal spike not observed. Normal free light chains and normal free light chain ratio. Creatinine 1.4 with GFR 40. Potassium 4.2. Patient returns on August 05, 2024 for IVIG. Will follow-up repeat labs today. Menopausal flushing 1983 86485 N95.1 Patient interested in trying new medication for hot flashes Veozah. Only limitation would be patient's chronic kidney disease. If GFR was below 30 would not recommend using. Will send in prescripti on.Patient started on low-dose effexor. Will follow-up for any improvemen t. Drug-induc ed mucositis [id number] K12.32 Continues with magic mouthwash. Nausea [id number] R11.0 as needed zofran and promethazi ne. Hypomagnesemia 321760776 E83.42 Labs on May 13, 2024 with critical magnesium 1.2. Will give 2 g IV magnesium. Patient is taking magnesium 400 mg p.o. daily. Labs on July 08, 2024 with magnesium [...] in the normal range. Continued on magnesium supplement ation. Low back pain [id number] M54.50 Since last visit patient had fall at home and she fell [...] neuropathy secondary to prior treatment of myeloma. [id number] [facility] [address] [address] [place] [address] 10/06/2024 12:51:50 10/06/2024 13:56:24 Confusional state [id number] R41.0 Asthenia 70264926 R53.1 [id number] Kay Perez PA-C [facility] [address] [facility] [place] [address] 10/28/2024 08:41:27 10/28/2024 09:02:01 Multiple myeloma 305213769 C90.00 IgG Lambda multiple myeloma. ISS stage [...] peripheral neuropathy . Patient continued on Revlimid/d examethaspriscila mckeon and given complete response on recent [...] labs today. 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 Anemia 462428984 D64.9 mild anemiaPati ent with history of chronic kidney disease. Iron studies normal on September 02, 2024. Normal B12 and folate. Suspect impact of chronic kidney disease.wi follow up labs today. 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 Will continue with as needed Lasix. Pain due t o neoplastic disease [id number] 9102 G89.3 History of multiple bone fractures secondary to myeloma. Patient currently on oxycodone as needed. Patient previously on fentanyl patch 37.5 mcg every 72 hours. Patch is no longer being paid for by patient's insurance. Recently had to try 25 mcg patch. Dose decreased to 25 mcg patch. Chronic as thmatic bronchitis 003085834 J44.9 Patient has been seen by clinical applications manager in [facility] and is due to start Tezspire [...] Ativan. Chronic ki dney disease stage 3B 261271758 N18.32 Labs on July 10, 2023 with Creatinine 1.8. GFR less than 30 consistent with stage IIIB chronic kidney disease. Will send erythropoi etin level. Hypokalemia 76273038 E87 .6 Labs on June 23, 2024 with potassium 2.6 creatinine 1.7 with GFR 32. Magnesium 1.3. Albumin 2.9. Patient continues on potassium and magnesium supplement ation. Patient continues on oral potassium 20 mEq daily. Will follow-up repeat labs today. Menopausal flushing 1983 42343 N95.1 Patient interested in trying new medication for hot flashes Veozah. Only limitation would be patient's chronic kidney disease. If GFR was below 30 would not recommend using. Will send in prescripti on.Patient started on low-dose effexor. Will follow-up for any improvemen t. Drug-induc ed mucositis 268868240 K12.32 Continues with magic mouthwash prn. Nausea 537534285 R11.0 as needed zofran and promethazi ne. Hypomagnesemia 648797683 E83.42 Labs on May 13, 2024 with critical magnesium 1.2. Will give 2 g IV magnesium. Patient is taking magnesium 400 mg p.o. daily. Patient continues on magnesium supplement ation. Will follow up labs today. Low back pain 152956639 M54.50 Patient had fall at home and [...] Long-term current use of intravenous immune globulin [id number] 69979 Z79.899 Started subcutaneo us IVIG therapy in May 2019. Tolerating well at this point.Over all improving respirator y status. Will continue as patient is tolerating well.Patie nt continues with every 4 week IVIG supplement ation. Will follow up CBC and CMP prior to IVIG and Xgeva administra tion to monitor for toxicity. [id number] Thad Canales MD [facility] [address] [place] [address] 10/20/2024 10:00:20 10/20/2024 10:35:35 Clouded consciousness 30275006 R41.0 Health Concerns Section Related Observation LastModified by Organization Detai ls LastModified Time None Recorded Concern Status LastModified by Organization Details LastModified Time None Recorded Payers Encounter Date Sequence Insurance Name Policy Number Policy Mahoney Covered Member ID Mahonye Member ID Guarantor Name 10/28/2024 1 [place]IC[place] Salima Kramer [id number] Salima Kramer 10/28/2024 2 [employer] - [employer] (MEDICARE SUPPLEMENT) Salima Kramer [id number] Salima Kramer Notes Date Note Type Note Provider Name and Address Organization Details Recorded Time 10/28/2024 text/html 74 yo F returns for evaluation of multiple myeloma, IgG deficiency, anemia, and chronic kidney disease. Initially hospitalized at [facility] following a laminectomy on 01-30-17 by her [...] normal lambda light chains at 13.4. normal Laverne light chains at 11.6. bone marrow biopsy in August 2017 with [...] She was seen by colorectal physician in [facility] and had a CT scan performed. Patient [...] and normal lambda light chain at 14.1. Laverne lambda ratio at 0.87.Patient is also status [...] and patient was discharged inpatient rehab at [place]. During the course of her evaluation in [...] hemoglobin 11.5 and hematocrit 37.7. Platelet count 907208. Renal function stable with creatinine 2.1 and BUN 39 with GFR of 25. Consistent with stage 4 chronic kidney disease. Serum light chains demonstrate normal kappa light chain at 7.2. Normal lambda light chain at 14.6. Laverne lambda ratio 0.49. Protein electrophoresis with small [...] and since last visit was seen by clinical applications manager. Patient started on percussion vest and started [...] 19.4. Normal lambda light chain at 14.4. Laverne lambda ratio at 1.35. No evidence of monoclonal protein. IgG level 702 which is in the normal range. Labs on February 27, 2023 with kappa light chain 20.3. Normal lambda light chain at 15.7. Laverne lambda ratio at 1.29. No evidence of [...] hemoglobin 9.9 and hematocrit 32.9. Platelet count 417010. Creatinine 1.8. Total protein 6.1 albumin 2.5. Calcium 8.3. Patient recently completed antibiotics for UTI. She was having dizziness and hallucinations with the UTI. This has resolved. MRI of the brain on August 30, 2023 with age-appropriate atrophy and mild chronic ischemic/gliotic changes. No acute intracranial abnormality. Labs on October 03, 2023 with kappa light chain at 21.5. Lambda light chain 14.1. Laverne lambda ratio 1.52. SPEP without evidence of monoclonal spike. Patient returns on October 30, 2023. Patient continues with maintenance Revlimid. Patient feels well no acute changes. Will continue with Xgeva as well as immune globulin support. Labs on October 30, 2023 with kappa light chain at 28.9. Laverne lambda ratio 1.5. Immunofixation normal. IgG level 728. Electrophoresis with no abnormal spike. Labs on November 27, 2023 with kappa light chain 21.8. No monoclonal spike observed. IgG level normal at 761. Labs on January 22, 2024 with no evidence of monoclonal spike. IgG level 696. Patient continues on maintenance Revlimid.Labs on February 19, 2024 with hemoglobin 11.1. Platelet count 845948. Total protein 5.4. IgA level 50. IgG [...] but no new areas of bone change. Kay Perez PA-C [id number], [place], [address], [place] - [facility] - [place] & [place] 10/28/2024 09:05:18 OBGyn Episode No OBEpisode recorded.
--- OUTSIDE RECORDS SUMMARY | 2024-12-08 09:25 | XMS_ITS | Continuity of Care Document ---
Author Organization [place] [facility] [facility] - [place] Address [address] [place] [address] Care Team Providers Care Jewelry Estimator Name Role Phone THAD CANALES Primary Care [...] Not available Not available Not available Lab lipid panel, serum 2024 025 [facility], [address] [place] [address], [place], [address], 12/01/2024 05:53:38 Referral None recorded. Procedures None recorded. Surgeries None recorded. Imaging None recorded. Medication Orders None recorded. Patient TargetsNo targets recorded. Patient Instructions Encounter Date Encounter Id Patient Instructions Last Modified By Organization Details Last Modified Time 11/30/2024 [id number] advance directives: care instructions Not available 11/30/2024 09:45:23 well visit, over 65: care instructions Not available 11/30/2024 09:45:23 visual acuity* [email or web address] Not availabl e 11/30/2024 10:04:10 Health Maintenance Recommendations: (5-10 year screening/prevent ion plan) [email or web address] Not available 11/30/2024 08:22:05 Reason for Referral None Reported. Results Created Date Observation Date Name Description Value Unit Range Abnormal Flag Note LastModifiedBy Organization Detail LastModifiedTime 11/12/19 25 11/11/2024 XR, foot, 3 or more view No observ ation record ed. [email or web address] In-House Imaging - [facility] [address] , [place], [address], 11/12/2024 08:32:53 Result Notes None recorded. Problems Name Problem SNOMED Code Status Onset Date Resolution Date Notes Provider Name and Address Organization Details Recorded Time Pain in right foot 7048454992245 07 Active 2024 ANAHY LOONEY [facility], [place] [facility] - [place] & [place] 5 10:15:14 Chronic intractabl e migraine without aura 6073821165624 05 Active 2021 Not Available [facility] 4 05:24:21 Restless legs 44795161 Active Not Available [facility] 4 05:24:21 Compressio n fracture Active Not Available [facility] 4 05:24:21 Exacerbati on of moderate persistent asthma 749876517 Active Not Available [facility] 4 05:24:22 Deficiency of macronutri ents 168618962 Active [facility] Available [facility] 4 05:24:21 Multiple myeloma in remission 95279513 Active Not Available [facility] 4 05:24:22 Nocturia 388232713 Active Not Available [facility] 4 05:24:21 Phleboscle rosis 898415607 Active Not Available [facility] 4 05:24:21 Increased frequency of urination 767436098 Active Not Available [facility] 4 05:24:21 Selective immunoglob ulin E deficiency 704958046 Active Not Available [facility] 4 05:24:21 Gallstone 239961498 Active Not Available [facility] 4 05:24:21 Chronic kidney disease stage 3 489252547 Active Not Available [facility] 4 05:24:22 Neuropathy 099106134 Active Not Available [facility] 4 05:24:22 Asthma 981575995 Active Not Available [facility] 4 05:24:21 Unsteady when walking 34249288 Active Not Available [facility] 4 05:24:21 Hypophosph atemia 4375489 Active Not Available [facility] 4 05:24:22 Chronic pain 93899230 Active Not Available [facility] 4 05:24:22 Allergic rhinitis caused by pollen 30115785 Active Not Available [facility] 4 05:24:21 Incisional hernia 734237158 Active Not Available [facility] 4 05:24:21 Bronchitis 64635799 Active Not Available [facility] 4 05:24:21 Pain in back following surgical procedure 476336534 Active Not Available [facility] 4 05:24:21 Lymphedema 238911438 Active Not Available [facility] 4 05:24:21 Immunoglob ulin G deficiency 4883022991125 6 Active Not Available [facility] 4 05:24:21 Mixed hyperlipid emia 927182865 Active Not Available [facility] 4 05:24:21 Urge incontinen ce of urine 85015844 Active Not Available [facility] 4 05:24:22 Rectovagin al fistula 02656438 Active Not Available [facility] 4 05:24:22 Dysphagia 45845704 Active Not Available [facility] 4 05:24:22 Exacerbati on of severe persistent asthma 506659906 Active Not Available [facility] 4 05:24:22 Vitamin D deficiency 78706415 Active Not Available [facility] 4 05:24:22 Disorder of cardiovasc ular system 21842268 Active Not Available [facility] 4 05:24:22 Cholelithi asis without obstructio n 48275233 Active Not Available [facility] 4 05:24:22 Inflammato ry disease of mucous membrane 81343402 Active Not Available [facility] 4 05:24:22 Chronic bronchitis 54914157 Active Not Available [facility] 4 05:24:22 Respirator y tract infection 021914030 Active Not Available [facility] 4 05:24:21 Colostomy present 611602733 Active Not Available [facility] 4 05:24:21 Environmen krystal allergy 434826139 Active Not Available [facility] 4 05:24:22 Colovagina l fistula 010469589 Active Not Available [facility] 4 05:24:21 Total urinary incontinen ce 040356936 Active Not Available [facility] 4 05:24:21 Multiple myeloma 476033127 Active Not Available [facility] 4 05:24:21 Edema 916658238 Active Not Available [facility] 4 05:24:21 Vesicocoli c fistula 42505274 Active Not Available [facility] 4 05:24:21 Hypocalcem ia 7558533 Active Not Available [facility] 4 05:24:22 Tension-ty pe headache 333187600 Active Not Available [facility] 4 05:24:22 Gastroesop hageal reflux disease 547935922 Active Not Available [facility] 4 05:24:21 Uncomplica sacha severe persistent asthma 002106916 Active Not Available [facility] 4 05:24:22 Acute exacerbati on of chronic obstructiv e pulmonary disease 443852404 Active Not Available [facility] 4 05:24:21 Chronic renal failure 15085725 Active Not Available [facility] 4 05:24:22 Hyperlipid emia 88741827 Active Not Available [facility] 4 05:24:22 Hypokalemi a 87199442 Active Not Available [facility] 4 05:24:22 Recurrent urinary tract infection 321270333 Active Not Available [facility] 4 05:24:21 Chronic kidney disease 175775851 Active Not Available [facility] 4 05:24:22 Screening for malignant neoplasm of breast Active Not Available [facility] 4 05:24:21 Right bundle branch block 74543907 Active Not Available [facility] 4 05:24:22 Bilateral hand weakness 0576244805008 9104 Active 2022 Not Available [facility] 4 05:24:21 Laryngopha ryngeal reflux 423958421 Active 2022 Not Available [facility] 4 05:24:22 Severe persistent asthma 753453044 Active 2022 Not Available [facility] 4 05:24:22 Chronic cough 46519895 Active 2022 Not Available [facility] 4 05:24:22 Acute nontraumat ic kidney injury 1817844483575 03 Active Not Available [facility] 4 05:24:21 Nausea and vomiting 46152198 Active Not Available [facility] 4 05:24:21 Patient immunosupp ressed 383301111 Active Not Available [facility] 4 05:24:22 Community acquired pneumonia 430279810 Active Not Available [facility] 4 05:24:22 Urinary tract infectious disease 36238072 Active Not Available [facility] 4 05:24:22 Obstructiv e sleep apnea syndrome 85148129 Active 2023 Olivia Meyer, DO [address] [facility], [place], [address] , [place] [facility] [place] 4 09:29:47 Notes:Some problems listed i n Documents: #[id number], #[id number] could not be added to this patient's chart. Please review these documents and add these problems to the patient's chart manually as needed. Problem Notes None recorded. Procedures Surgical History Date Name Laterality Status Provider Name and Address Organization Details Recorded Time 11/04 esophagogastroduodenoscopy completed Alanna Miller [place] [facility] 5 14:46:48 11/04 Colonoscopy completed Karine Joy [place] 5 14:46:57 05/18 completed [place] Wills [place] [facility] 5 08:22:37 05/18 Most Recent Mammogram completed Karine Joy [place] 5 10:16:13 02/08 polysomnography completed Karine [place]ef[place]amer [place] [facility] [place] 5 10:16:45 12/05 Most Recent Bone Density completed Karine Schafeeramer [place] [facility] [place] 5 10:16:10 02/20 Cryosurgery completed MD [address], [place], [address] , [place] [facility] 3 11:13:28 01/23 cholecystectomy completed Sonal Moctezuma [place] 3 08:08:43 01/23 repair of incisional hernia completed Yaa [place]uma [place] 3 08:08:21 07/22 Cholecystectomy completed [place] Wills [place] [facility] 5 08:22:47 12/15 Colonoscopy completed Karine Joy [place] 5 10:23:58 12/05 Date of Last Colonoscopy completed [place] Wills [place] [facility] 5 08:22:37 05/03 procedure on knee completed DO [address], [place], [address] , [place] [facility] 3 08:57:05 07/22 Other completed [place] Wills [place] [facility] [place] 5 08:22:47 07/06 insertion of implantable venous access port completed DO [address], [place], [address] , [place] [facility] 3 08:58:24 07/06 removal of implantable venous access port completed DO [address], [place], [address] , [place] [facility] 3 08:58:40 05/22 excision of part of colon and excision of terminal ileum with ileocolic anastomosis completed DO [address], [place], [address] , [place] [facility] 3 08:56:32 12/21 repair of rectovaginal fistula completed DO [address], [place], [address] , [place] [facility] 3 08:55:42 07/22 kyphoplasty of fracture of spine using fluoroscopic guidance completed DO [address], [place], [address] , [place] [facility] 3 10:34:38 07/22 Other completed [place] Wills [place] [facility] [facility] & [place] 5 08:22:47 02/19 bronchoscopy completed DO [address], [place], [address] , [place] [facility] [facility] & [place] 3 08:57:20 02/17 esophagogastroduodenoscopy completed Alanna Miller [place] [facility] & [place] 5 10:21:54 07/22 procedure on elbow completed DO [address], [place], [address] , [place] [facility] [facility] & [place] 3 08:55:21 01/19 bone marrow biopsy, needle or trocar completed Karine Joy [place] [facility] & [place] 5 10:22:33 07/22 insertion of implantable venous access port completed DO [address], [place], [address] , [place] - [facility] [place] 3 08:58:11 07/22 repair of shoulder completed Sonal SEXTON - [facility] - [place] & [place] 3 08:06:30 07/22 Knee Replacement completed Sonal SEXTON - [facility] - [place] & [place] 3 08:05:35 07/22 Knee Replacement completed Sonal SEXTON - [facility] - [place] & [place] 3 08:05:25 07/22 procedure on wrist completed Sonal SEXTON - [facility] - [place] & [place] 3 08:05:02 07/22 Hysterectomy completed Sonal SEXTON - [facility] - [place] & [place] 3 08:04:23 07/22 lumpectomy of breast completed Sonal SEXTON - [facility] & [place] 3 08:04:05 hernia repair completed Delmi Weinstein [place] - [facility] & [place] 3 11:09:01 section completed Sonal SEXTON - [facility] & [place] 3 08:03:33 Colostomy completed Sonal SEXTON - [facility] - [place] & [place] 3 08:11:02 Imaging Results None recorded. Procedure Notes None recorded. Medical Equipment None Reported. Allergies Allergen ID Allergen Name Allergen Category Reaction Reaction Severity Criticality Documentation Date Start Date Code Code System Note Provider Name and Address Organization Details Recorded Time 86517 Substance with sulfonami de structure and antibacte rial mechanism of action (substanc e) medicatio n dizziness hives rash Not available Not available Not available Not available 04/11/2022 46869 8003 SNOMED criti calit y - mediu m Karine hickey, [place] [facility] 3 07:13:57 2419 meperidin e medicatio n hives other Not available Not available low 03/29/2022 6754 RxNorm also rose dexter Vivas ol; hypot ensKarine canales, [place] - [facility] & [place] 5 10:29:07 80000 honey bee venom environme nt Not available Not available low 05/01/2023 10852 7 RxNorm Karine hickey, [place] [facility] & [place] 4 10:09:38 Medications Name Sig Start Date [...] propionate 50 mcg/actuati on nasal spray,suspe nsion [place] 2 sprs by nasal route. 09/02 completed [...] 137 mcg-flutica sone 50 mcg/spray nasal spray [place] 1 spr by nasal route. 09/18 completed [...] Updated DateTime 5 157.48 cm 32.2 kg/m2 80385.2 6 g 96.8 [degF] 97 % 97 % 73 /min 130 mm[Hg] 88 mm[Hg] [facility] & [place] 5 08:32:05 Social History Question Answer Notes LastModified by Organizat ion Details LastModified Time Tobacco Smoking Status Never Smoker Not Available [facility] 08/19/2023 11:22:25 Do You Have An [...] Do In The Last 7 Days? 0 [email or web address] Information not available 11/30/2024 Have You Recently Or Are You Planning To Travel To An Area With Zika Virus? No CHART_MERGE Information not available 08/19/2023 In General, Would You Say Your Health Is Fair [email or web address] Information not available 10/31/2022 How Would You Describe The Condition Of Your Mouth And Teeth? including False Teeth Or Dentures? Fair [email or web address] Information not available 10/31/2022 In The Past 7 Days, How Many Servings Of Fruits And Vegetables Did You Typically Eat Each Day? (1 Serving = 1 Cup Of Fresh Vegetables, 1? 2 Cup Of Cooked Vegetables, Or 1 Medium Piece Of Fruit. 1 Cup = Size Of A Baseball.) 3-4 Servings Per Day [email or web address] Information not available 11/30/2024 In The Past 7 Days, How Many Servings Of High Fiber Or Whole Grain Foods Did You Typically Eat Each Day? (1 Serving = 1 Slice Of 100% Whole Wheat Bread, 1 Cup Of Whole-grain Or High-fiber Gmsib-gu-rej Cereal, 1? 2 Cup Of Cooked Cereal Such As Oatmeal, Or 1? 2 Cup Of Cooked Brown Rice Or Whole Wheat Pasta.) 1-2 Servings Per Day [email or web address] Information not available 11/30/2024 In The Past 7 Days, How Many Servings Of Fried Or High-fat Foods Did You Typically Eat Each Day? (Examples Include Fried Chicken, Fried Fish, [place], Mong[place]ian [place], Potato Chips, [place] Chips, Doughnuts, Creamy Salad Dressings, And Foods Made With Whole Milk, Cream, Cheese, Or Mayonnaise.) 0 Servings Per Day [email or web address] Information not available 11/30/2024 In The Past 7 Days, How Many Sugar-sweetened (not Diet) Beverages Did You Typically Consume Each Day 1-2 Drinks Per Day [email or web address] Information not available 11/30/2024 Each Night, How Many Hours Of Sleep Do You Usually Get? Less Than 5 Hours [email or web address] Information not available 10/31/2022 Do You Snore Or Has Anyone Told You That You Snore? Yes [email or web address] Information not available 10/31/2022 In The Past 7 Days, How Often Have You [place] Sleepy During The Daytime? Always [email or web address] Information not available 10/31/2022 Do You Have Chronic Pain? Yes [email or web address] Information not available 10/31/2022 If Yes, Location Of Pain Neuropathy, Drawing Of Hands And Feet, [place] [email or web address] Information not available 10/31/2022 In The Past 7 Days, How Would You Rate Your Pain? Severe Pain(7-9) [email or web address] Information not available 10/31/2022 Are You In A Pain Management Program? No [email or web address] Information not available 10/31/2022 Do You Take Opioids For Your Pain? Yes [email or web address] Information not available 10/31/2022 How Often Is Stress A Problem For You In Handling Such Things As: Your Health, Your Finances, Your Family And Social Relationships, Your Work? Never Or Rarely [email or web address] Information not available 10/31/2022 How Often Do You Get The Social And Emotional Support You Need: Always [email or web address] Information no t available 10/31/2022 In The Past 7 Days, Did You Need Help From Others To Take Care Of Things Such As Laundry And Housekeep- Ing, Banking, Shopping, Using The Telephone, Food Preparation, Transportation, Or Taking Your Own Medications? Yes [email or web address] Information not available 11/30/2024 Do You Live Alone? No [email or web address] Information not available 10/31/2022 Does Your Home Have Any Fall Risks (un-level Floors, Unfastened Rugs, Poor Lighting, Etc)? No [email or web address] Information not available 10/31/2022 Do You Feel Safe At Home? Yes Information not available 11/28/2023 Do You Have A Medical Power Of Supervisor Electronic Testing? Yes Information not available 11/28/2023 What Was The Date Of Your Most Recent Tobacco Screening? 01/20/2024 [email or web address] Information not available 01/30/2024 How Many Children Do You Have? 2 [email or web address] Information not available 11/30/2024 Do You Have Any Pets? No CHART_MERGE Information not available 08/19/2023 What Is Your Relationship Status? Lives With In A House CHART_MERGE Information not available 08/19/2023 Do You Use Your Seat Belt Or Car Seat Routinely? Yes CHART_MERGE Information not available 08/19/2023 Are You Sexually Active? No [email or web address] Information not available 11/30/2024 Are You Passively Exposed To Smoke? No CHART_MERGE Information no t available 08/19/2023 Has Tobacco Cessation Counseling Been Provided? No CHART_MERGE Information not available 08/19/2023 How Many Years Have You Smoked Tobacco? 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 [id number] CHART_MERGE Information not available 08/19/2023 Do you [...] available 04/24/2024 10:11:34 Mother Family member 88 ner2 Not available 2024 08:54:03 Father Cerebrovascu lar [...] 1 daug hter, Medical History Condition Response Allergies/Hayfever Y Allergies (Food, seasonal, environmental ) Y Heart Problems Y Other Y Hernia [...] Hep A, adult 8 completed Not Available [facility] 09/04/2023 05:24:25 Influenza, split virus, quadrivalent, PF 0 completed Not Available [facility] 09/04/2023 05:24:25 Td (adult), 2 Lf tetanus toxoid, preservative free, adsorbed 7 completed Not Available [facility] 09/04/2023 05:24:25 COVID-19, mRNA, LNP-S, PF, 100 mcg/0.5mL dose or 50 mcg/0.25mL dose 1 completed Not Available [facility] 09/04/2023 05:24:25 Influenza, split virus, trivalent, PF 6 completed [facility] Available [facility] 09/04/2023 05:24:25 Hep A, adult 9 completed Not Available [facility] 09/04/2023 05:24:25 COVID-19, mRNA, LNP-S, PF, 100 mcg/0.5mL dose or 50 mcg/0.25mL dose 1 completed Not Available [facility] 09/04/2023 05:24:25 Influenza, split virus, quadrivalent, PF 1 completed Not Available [facility] 09/04/2023 05:24:25 Influenza, adjuvanted, quadrivalent, PF 3 completed [facility] Available [facility] 09/04/2023 05:24:25 COVID-19, mRNA, LNP-S, bivalent, PF, 50 mcg/0.5 mL or 25mcg/0.25 mL dose 3 completed [facility] Available [facility] 09/04/2023 05:24:25 Influenza, high-dose, quadrivalent, PF 3 completed Not Available [facility] 09/04/2023 05:24:25 Pneumococcal conjugate PCV20, polysaccharide PDV140 conjugate, adjuvant, PF 3 completed Not Available [facility] 09/04/2023 05:24:25 RSV, recombinant, protein subunit RSVpreF, adjuvant reconstituted, 0.5 mL, PF 3 completed Not Available [facility] 09/04/2023 05:24:25 influenza, unspecified formulation 4 completed Karine Joy null, [place] [facility] 04/24/2024 10:10:34 pneumococcal, unspecified formulation 1 completed Karine Schaeferamer null[place] [facility] 04/24/2024 10:10:47 Influenza, adjuvanted, trivalent, PF 4 completed Thad Canales MD [address] [facility], [place], [address], [place] [facility] 05/19/2024 13:06:50 SARS-COV-2 (COVID-19) vaccine, UNSPECIFIED 1 completed Karine Rufino null, [place] - [facility] - [place] & [place] 09/17/2024 10:20:01 Tdap 5 completed Madison Wills null, [place] - [facility] - [place] & [place] 11/30/2024 09:53:01 Past Encounters Encounter ID Performer Location Encounter Start Date Encounter Closed Date Diagnosis/Indication Diagnosis SNOMED-CT Code Diagnosis ICD10 Code Diagnosis Note [id number] Thad Canales MD [facility] [address] [facility] [address] [facility] [address] [place] [address] 11/11/2024 08:44:49 11/11/2024 09:54:14 Pain in right foot [id number] 98377 M79.671 Osteoporosis 96990907 M8 1.0 [id number] Marco Meyer MD [facility] [address] [facility] [address] [place] [address] 11/11/2024 10:10:16 11/11/2024 10:35:36 Pain in right foot 5149280520 67581 M79.199 [id number] Thad Canales MD [facility] [address] [facility] [address] [place] [address] 11/30/2024 08:20:06 11/30/2024 10:12:04 Adult health examination 462138505 Z00.00 Hyperlipidemia 95248372 E78.5 mild in the pasthas not required statinrepe at lab pending Osteoporot ic fracture of bone of foot 365083311 M80.071D discussed prior xray, plan of care with podiatry and pending f/upt notes that onc has ordered a f/u bone density test and will keep me updated [id number] Fernandez Jordan MD [facility] [address] [place] [address] 11/25/2024 08:50:27 11/25/2024 09:41:07 Long-term current use of intravenous immune globulin [id number] 76250 Z79.899 Started subcutaneo us IVIG therapy in May 2019. Tolerating well at this point.Over all improving respirator y status. Will continue as patient is tolerating well.Kayley lerner continues with every 4 week IVIG supplement [facility]. Will follow up CBC and CMP prior to IVIG and Xgeva administra tion to monitor for toxicity. Multiple myeloma 1115757 06 C90.00 IgG Lambda multiple myeloma. ISS [...] medication . 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 Anemia 086780198 D64.9 mild anemiaPati ent with history of chronic kidney disease. Iron studies normal on September 02, 2024. Normal B12 and folate. Suspect impact of chronic kidney disease.wi follow up labs today. 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 Over the last month slight increase in neuropathy symptoms. Using oxycodone slightly more during this time. Will follow-up discussed potential adjustment of dosing however patient previously had trouble with gabapentin at higher doses with mental status changes.Cu rrently taking gabapentin 300 mg 2 tabs p.o. q.8 hours p.r.n..Pat ient recently started taking low-dose Effexor Lymphedema of lower extremity 572589074 I89.0 Lower extremity compressio n stockings in place. Will continue with as needed Lasix. Pain due t o neoplastic disease 7619196912 9102 G89.3 History of multiple bone fractures secondary to myeloma. Patient currently on oxycodone as needed. Patient previously on fentanyl patch 37.5 mcg every 72 hours. Patch is no longer being paid for by patient's insurance. Recently had to try 25 mcg patch. Dose decreased to 25 mcg patch. Chronic as thmatic bronchitis 678395050 J44.9 Patient has been seen by global project manager in [facility] and is due to start Tezspire [...] Ativan. Chronic ki dney disease stage 3B [id number] N18.32 Labs on July 10, 2023 with Creatinine 1.8. GFR less than 30 consistent with stage IIIB chronic kidney disease. Will send erythropoi etin level. Hypokalemia [id number] E87 .6 Labs on June 23, 2024 with potassium 2.6 creatinine 1.7 with GFR 32. Magnesium 1.3. Albumin 2.9. Patient continues on potassium and magnesium supplement ation. Patient continues on oral potassium 20 mEq daily. Will follow-up repeat labs today. Menopausal flushing [id number] N95.1 Patient interested in trying new medication for hot flashes [place]. Only limitation would be patient's chronic kidney disease. If GFR was below 30 would not recommend using. Will send in prescripti on.Patient started on low-dose effexor. Will follow-up for any improvemen t. Drug-induc ed mucositis [id number] K12.32 Continues with magic mouthwash prn. Nausea [id number] R11.0 as needed zofran and promethazi ne. Hypomagnesemia [id number] E83.42 Labs on May 13, 2024 with critical magnesium 1.2. Will give 2 g IV magnesium. Patient is taking magnesium 400 mg p.o. daily. Patient continues on magnesium supplement ation. Will follow up labs today. Low back pain [id number] M54.50 Patient had fall at home and [...] new areas of bone change. Acute diarrhea [id number] R19.7 Patient with diarrhea for the last [...] Member ID Mahoney Member ID Guarantor Name 11/30/2024 1 [place] Salima Burrell [id number] Salima Burrell 11/30/2024 2 [employer] - [employer] (MEDICARE SUPPLEMENT) Salima Burrell [id number] Salima Burrell Notes Date Note Type Note Provider Name and Address Organization Details Recorded Time 11/30/2024 text/html Medicare Annual Wellness VisitReported bypatient.Diet and Nutrition:discussed vitamin and supplement use; discussed portion control; discussed maintaining calcium balance; discussed diet improvement Fracture Risk:no recent explained fracture Physical Activity:poor physical condition; discussed weightbearing activities; discussed exercise habits Depression Risk:never feels sad, empty, or tearful; no loss of interest in activities; no agitation; no feelings of worthlessness or guilt;history of depression Orientation:no disorientation to time; no disorientation to date; no disorientation to place Concentration and Memory:no decreased concentrating ability; no memory lapses or loss; does not forget words Speech/Motor difficulties:no speech difficulties; no difficulty expressing formulated concepts; no difficulty with fine manipulative tasks; no difficulty writing/copying; no slowed reaction time; does not knock things over when trying to pick them up Hearing:no loss of hearing Activities of Daily Living:able to bathe with limited or no assistance; able to contol urination and bowels; able to dress with limited or no assistance; able to feed self with limited or no assistance; able to get out of chair or bed with limited or no assistance; able to groom with limited or no assistance; able to toilet with limited or no assistance Instrumental Activities of Daily Living:able to manage medications with limited or no assistance; able to manage money with limited or no assistance; able to prepare meals with limited or no assistance; able to use the phone with limited or no assistance;unable to do house work without assistance;unable to grocery shop without assistance Falls Risk Assessment:no fall since last visit Home Safety:no unsafe nguyen hazzards; no unsafe gas appliances; use of seatbelts Patient is here for yearly check up and follow up.Last dental visit: 6 months agoLast eye exam: 2 months ago Tdap vaccine: early 2024 after wound and ER visitFlu vaccine: UTDCovid vaccine: fall 2022Shingles vaccine: zostavax 2013, plans to get shingrix when ablePNA vaccine: UTDRSV: UTD mammogram: Apr 2024 WNLColon cancer screening: November 2021, WNL, rec 10 year f/uDexa: 2023 with osteoporosis, current pathological fracture, hx of MM followed by OncPap smear: 2016, Dr. Champion, no further testing due HLP screening: due for screening, mildly elevated in the pastDM Screening: no hx of DM, a1c was 4.7 in October 2022HTN screening: WNL, no hx of HTN Diet: struggles due to dental issues, limited breakfast, usually later in the morning, she does have 4 oranges a day, she struggles with protein and tries to use chicken and protein shakesExercise: limited due medical condition Mood: feels that she is doing well, gets frustrated at time due to her health. Currently on wellbutrin and would like to continueSafety: pt wears seat belt, has smoke detectors in home, feels safe at home.' She had recent fracture in her right foot without injury. She is struggling with her headaches. SHe follows with neurology and was put back on Qulipta. She has no benefit with nurtec or ubrelvy. She feels that mountain dew helps. She has a pending MRI with neurology at [facility]. Thad Canales MD [address], [place], [address], [facility] - [place] & [place] 11/30/2024 17:10:19 OBGyn Episode No OBEpisode recorded.
--- OUTSIDE RECORDS SUMMARY | 2024-12-08 09:26 | XMS_ITS | Continuity of Care Document ---
Author Organization [place] - [facility] & [place], [facility] Address [address] [place] [address] Care Team Providers Care A[employer]eer [employer] Name Role Phone JENNIE THAD Primary Care Provider [phone] Assessment Encounter Date Assessment Date Assessment LastModified by Organization Details LastModified Time 12/01/2024 12/01/2024 74-year-old female chronic cough/difficu lt to manage asthma. She has a history of GERD with suspected LPR. [email or web address] Not available 12/01/2024 21:43:09 Plan of Treatment Reminders Order Date Submit [...] Procedures None recorded. Surgeries None recorded. Imaging barium swallow study 2024 025 [facility] (Centralized Scheduling), [facility] [place], [address], 12/05/2024 11:22:47 Medication Orders None recorded. Patient TargetsNo targets recorded. Patient Instructions Encounter Date Encounter Id Patient Instructions Last Modified By Organization Details Last Modified Time 12/01/2024 [id number] 6 week f/u [email or web address] Not available 11/19 21:41:49 Reason for Referral None Reported. Results Created Date Observation Date Name Description Value Unit Range Abnormal Flag Note LastModifiedBy Organization Detail LastModifiedTime 11/12/1911/11/2024 XR, foot, 3 or more view No observ ation record ed. [email or web address] In-House Imaging - [facility] [address] , [place], [address], 11/12/2024 08:32:53 Result Notes None recorded. Problems Name Problem SNOMED Code Status Onset Date Resolution Date Notes Provider Name and Address Organization Details Recorded Time Pain in right foot 1609928044171 07 Active 2024 ANAHY hickey, [place] - [facility] - [place] & [place] 5 10:15:14 Chronic intractabl e migraine without aura 8008262175626 05 Active 2021 Not Available [facility] 4 05:24:21 Restless legs 22247507 Active Not Available [facility] 4 05:24:21 Compressio n fracture Active Not Available [facility] 4 05:24:21 Exacerbati on of moderate persistent asthma 968464961 Active Not Available [facility] 4 05:24:22 Deficiency of macronutri ents 117786657 Active Not Available [facility] 4 05:24:21 Multiple myeloma in remission 47856865 Active Not Available [facility] 4 05:24:22 Nocturia 945862692 Active Not Available [facility] 4 05:24:21 Phleboscle rosis 181348779 Active Not Available [facility] 4 05:24:21 Increased frequency of urination 822162699 Active Not Available [facility] 4 05:24:21 Selective immunoglob ulin E deficiency 251949108 Active Not Available [facility] 4 05:24:21 Gallstone 077583150 Active Not Available [facility] 4 05:24:21 Chronic kidney disease stage 3 520154768 Active Not Available [facility] 4 05:24:22 Neuropathy 459500621 Active Not Available [facility] 4 05:24:22 Asthma 112582922 Active Not Available [facility] 4 05:24:21 Unsteady when walking 58938782 Active Not Available [facility] 4 05:24:21 Hypophosph atemia 8555125 Active Not Available [facility] 4 05:24:22 Chronic pain 80830371 Active Not Available [facility] 4 05:24:22 Allergic rhinitis caused by pollen 95979358 Active Not Available [facility] 4 05:24:21 Incisional hernia 831114033 Active Not Available [facility] 4 05:24:21 Bronchitis 98949326 Active Not Available [facility] 4 05:24:21 Pain in back following surgical procedure 367779179 Active Not Available [facility] 4 05:24:21 Lymphedema 504268337 Active Not Available [facility] 4 05:24:21 Immunoglob ulin G deficiency 1640142232957 6 Active Not Available [facility] 4 05:24:21 Mixed hyperlipid emia 498234730 Active Not Available [facility] 4 05:24:21 Urge incontinen ce of urine 35467700 Active Not Available [facility] 4 05:24:22 Rectovagin al fistula 34646098 Active Not Available [facility] 4 05:24:22 Dysphagia 71198349 Active Not Available [facility] 4 05:24:22 Exacerbati on of severe persistent asthma 333402824 Active Not Available [facility] 4 05:24:22 Vitamin D deficiency 11655193 Active Not Available [facility] 4 05:24:22 Disorder of cardiovasc ular system 01939562 Active Not Available [facility] 4 05:24:22 Cholelithi asis without obstructio n 30390842 Active Not Available [facility] 4 05:24:22 Inflammato ry disease of mucous membrane 78109618 Active Not Available [facility] 4 05:24:22 Chronic bronchitis 98459972 Active Not Available [facility] 4 05:24:22 Respirator y tract infection 135839256 Active Not Available [facility] 4 05:24:21 Colostomy present 619962987 Active Not Available [facility] 4 05:24:21 Environmen krystal allergy 238552797 Active Not Available [facility] 4 05:24:22 Colovagina l fistula 885757723 Active Not Available [facility] 4 05:24:21 Total urinary incontinen ce 231413258 Active Not Available [facility] 4 05:24:21 Multiple myeloma 664207871 Active Not Available [facility] 4 05:24:21 Edema 872361197 Active Not Available [facility] 4 05:24:21 Vesicocoli c fistula 06422206 Active Not Available [facility] 4 05:24:21 Hypocalcem ia 1685444 Active Not Available [facility] 4 05:24:22 Tension-ty pe headache 398887541 Active Not Available [facility] 4 05:24:22 Gastroesop hageal reflux disease 794224385 Active Not Available [facility] 4 05:24:21 Uncomplica sacha severe persistent asthma 568087231 Active Not Available [facility] 4 05:24:22 Acute exacerbati on of chronic obstructiv e pulmonary disease 772097964 Active Not Available [facility] 4 05:24:21 Chronic renal failure 33086150 Active Not Available [facility] 4 05:24:22 Hyperlipid emia 80400724 Active Not Available [facility] 4 05:24:22 Hypokalemi a 07667521 Active Not Available [facility] 4 05:24:22 Recurrent urinary tract infection 798066705 Active Not Available [facility] 4 05:24:21 Chronic kidney disease 481111414 Active Not Available [facility] 4 05:24:22 Screening for malignant neoplasm of breast Active Not Available [facility] 4 05:24:21 Right bundle branch block 46600424 Active Not Available [facility] 4 05:24:22 Bilateral hand weakness 2458101680792 9104 Active 03/15/ 2023 Not Available [facility] 4 05:24:21 Laryngopha ryngeal reflux 175026073 Active 2022 Not Available [facility] 4 05:24:22 Severe persistent asthma 953016876 Active 2022 Not Available [facility] 4 05:24:22 Chronic cough 50552694 Active 2022 Not Available [facility] 4 05:24:22 Acute nontraumat ic kidney injury 8380213523927 03 Active Not Available [facility] 4 05:24:21 Nausea and vomiting 35681963 Active Not Available [facility] 4 05:24:21 Patient immunosupp ressed 727984578 Active Not Available [facility] 4 05:24:22 Community acquired pneumonia 658959610 Active Not Available [facility] 4 05:24:22 Urinary tract infectious disease 20354902 Active Not Available [facility] 4 05:24:22 Obstructiv e sleep apnea syndrome 50341770 Active 2023 Olivia Meyer, DO [address], [place], [address] , [place] - [facility] [place] & [place] 4 09:29:47 Notes:Some problems listed i n Documents: #[id number], #[id number] could not be added to this patient's chart. Please review these documents and add these problems to the patient's chart manually as needed. Problem Notes None recorded. Procedures Surgical History Date Name Laterality Status Provider Name and Address Organization Details Recorded Time 11/04 esophagogastroduodenoscopy completed Alanna andrews [place] - [facility] - [place] & [place] 5 14:46:48 11/04 Colonoscopy completed Karine [place] [facility] [place] & [place] 5 14:46:57 05/18 completed Madison Wills [place] [facility] [place] & [place] 5 08:22:37 05/18 Most Recent Mammogram completed Karine [place] [facility] 5 10:16:13 02/08 polysomnography completed Karine [place]ef[place]amer [place] [facility] [place] & [place] 5 10:16:45 12/05 Most Recent Bone Density completed Karine Joy [place] [facility] & [place] 5 10:16:10 02/20 Cryosurgery completed MD [address], [place], [address] , [place] [facility] [place] 3 11:13:28 01/23 cholecystectomy completed Sonal [place]ctezuma [place] [facility] & [place] 3 08:08:43 01/23 repair of incisional hernia completed Yaa [place] [facility] 3 08:08:21 07/22 Cholecystectomy completed Madison Wills [place] [facility] 5 08:22:47 12/15 Colonoscopy completed Karine Joy [place] 5 10:23:58 12/05 Date of Last Colonoscopy completed Madison [place] [facility] [place] & [place] 5 08:22:37 05/03 procedure on knee completed DO [address], [place], [address] , [place] [facility] [place] 3 08:57:05 07/22 Other completed Madison Wills [place] [facility] 5 08:22:47 07/06 insertion of implantable venous access port completed DO [address], [place], [address] , [place] [facility] [place] 3 08:58:24 07/06 removal of implantable venous access port completed DO [address], [place], [address] , [place] [facility] [place] 3 08:58:40 05/22 excision of part of colon and excision of terminal ileum with ileocolic anastomosis completed DO [address], [place], [address] , [place] [facility] [place] 3 08:56:32 12/21 repair of rectovaginal fistula completed DO [address], [place], [address] , [place] [facility] [place] 3 08:55:42 07/22 kyphoplasty of fracture of spine using fluoroscopic guidance completed DO [address], [place], [address] , [place] [facility] [place] 3 10:34:38 07/22 Other completed Madison Wills [place] [facility] & [place] 5 08:22:47 02/19 bronchoscopy completed DO [address], [place], [address] , [place] [facility] [place] 3 08:57:20 02/17 esophagogastroduodenoscopy completed Alanna Miller [place] [facility] & [place] 5 10:21:54 07/22 procedure on elbow completed DO [address], [place], [address] , [place] [facility] [place] 3 08:55:21 01/19 bone marrow biopsy, needle or trocar completed Karine Joy [place] [facility] & [place] 5 10:22:33 07/22 insertion of implantable venous access port completed DO [address], [place], [address] , [place] [facility] [place] 3 08:58:11 07/22 repair of shoulder completed Sonal Rhianna [place] - [facility] - [place] & [place] 3 08:06:30 07/22 Knee Replacement completed Sonal Rhianna [place] [facility] [place] & [place] 3 08:05:35 07/22 Knee Replacement completed Sonal Rhianna [place] [facility] 3 08:05:25 07/22 procedure on wrist completed Sonal Rhianna [place] [facility] 3 08:05:02 07/22 Hysterectomy completed Sonal Rhianna [place] [facility] 3 08:04:23 07/22 lumpectomy of breast completed Sonal [place]ianna [place] [facility] 3 08:04:05 hernia repair completed Delmi Weinstein [place] - [facility] - [place] & [place] 3 11:09:01 section completed Sonalrupali [place] - [facility] - [place] & [place] 3 08:03:33 Colostomy completed Sonal Rhianna [place] [facility] [place] & [place] 3 08:11:02 Imaging Results None recorded. Procedure Notes None recorded. Medical Equipment None Reported. Allergies Allergen ID Allergen Name Allergen Category Reaction Reaction Severity Criticality Documentation Date Start Date Code Code System Note Provider Name and Address Organization Details Recorded Time 25309 Substance with sulfonami de structure and antibacte rial mechanism of action (substanc e) medicatio n dizziness hives rash Not available Not available Not available Not available 04/11/2022 91855 8003 SNOMED criti calit y - mediu m Karine Joy null, [place] [facility] [place] & [place] 3 07:13:57 2419 meperidin e medicatio n hives other Not available Not available low 03/29/2022 6754 RxNorm also rose dexter Vivas ol; hypot ensio n, Karine Joy null, [place] [facility] [place] 02/27/202 5 10:29:07 61254 honey bee venom environme nt Not available Not available low 05/01/2023 82600 7 RxNorm Karine Joy [place], [place] - [facility] & [place] 4 10:09:38 Medications Name Sig Start Date [...] propionate 50 mcg/actuati on nasal spray,suspe nsion [place] 2 sprs by nasal route. 09/02 completed [...] 137 mcg-flutica sone 50 mcg/spray nasal spray [place] 1 spr by nasal route. 09/18 completed [...] by transderm al route for 30 days. 05/07/ 2025 05/13 /2025 completed Not Available Not Available Not [...] mass index (BMI) Body weight Body temperature Heart rate Systolic blood pressure Diastolic blood pressure Provider Name and Address Organization Details Last Updated DateTime 5 157.48 cm 32.1 kg/m2 12593.1 8 g 97.3 [degF] 67 /min 127 mm[Hg] 75 mm[Hg] Sylvester hernandez [place] [facility] [place] & [place] 5 09:13:01 Social History Question Answer Notes LastModified by [...] Do In The Last 7 Days? 0 [email or web address] Information not available 11/30/2024 Have You Recently Or Are You Planning To Travel To An Area With Zika Virus? No CHART_MERGE Information not available 08/19/2023 In General, Would You Say Your Health Is Fair Information not available 10/31/2022 How Would You Describe The Condition Of Your Mouth And Teeth? including False Teeth Or Dentures? Fair Information not available 10/31/2022 In The Past 7 Days, How Many Servings Of Fruits And Vegetables Did You Typically Eat Each Day? (1 Serving = 1 Cup Of Fresh Vegetables, 1? 2 Cup Of Cooked Vegetables, Or 1 Medium Piece Of Fruit. 1 Cup = Size Of A Baseball.) 3-4 Servings Per Day [email or web address] Information not available 11/30/2024 In The Past 7 Days, How Many Servings Of High Fiber Or Whole Grain Foods Did You Typically Eat Each Day? (1 Serving = 1 Slice Of 100% Whole Wheat Bread, 1 Cup Of Whole-grain Or High-fiber [id number]-wp-rhr Cereal, 1? 2 Cup Of Cooked Cereal Such As Oatmeal, Or 1? 2 Cup Of Cooked Brown Rice Or Whole Wheat Pasta.) 1-2 Servings Per Day [email or web address] Information not available 11/30/2024 In The Past 7 Days, How Many Servings Of Fried Or High-fat Foods Did You Typically Eat Each Day? (Examples Include Fried Chicken, Fried Fish, [place], Persian [place], Potato Chips, Fields Chips, Doughnuts, Creamy Salad Dressings, And Foods Made With Whole Milk, Cream, Cheese, Or Mayonnaise.) 0 Servings Per Day [email or web address] Information not available 11/30/2024 In The Past 7 Days, How Many Sugar-sweetened (not Diet) Beverages Did You Typically Consume Each Day 1-2 Drinks Per Day [email or web address] Information not available 11/30/2024 Each Night, How Many Hours Of Sleep Do You Usually Get? Less Than 5 Hours [email or web address] Information not available 10/31/2022 Do You Snore Or Has Anyone Told You That You Snore? Yes [email or web address] Information not available 10/31/2022 In The Past 7 Days, How Often Have You [place] Sleepy During The Daytime? Always [email or web address] Information not available 10/31/2022 Do You Have Chronic Pain? Yes Information not available 10/31/2022 If Yes, Location Of Pain Neuropathy, Drawing Of Hands And Feet, [place] [email or web address] Information not available 10/31/2022 In The Past 7 Days, How Would You Rate Your Pain? Severe Pain(7-9) [email or web address] Information not available 10/31/2022 Are You In A Pain Management Program? No [email or web address] Information not available 10/31/2022 Do You Take Opioids For Your Pain? Yes [email or web address] Information not available 10/31/2022 How Often Is Stress A Problem For You In Handling Such Things As: Your Health, Your Finances, Your Family And Social Relationships, Your Work? Never Or Rarely [email or web address] Information not available 10/31/2022 How Often Do You Get The Social And Emotional Support You Need: Always [email or web address] Information no t available 10/31/2022 In The Past 7 Days, Did You Need Help From Others To Take Care Of Things Such As Laundry And Housekeep- Ing, Banking, Shopping, Using The Telephone, Food Preparation, Transportation, Or Taking Your Own Medications? Yes [email or web address] Information not available 11/30/2024 Do You Live Alone? No [email or web address] Information not available 10/31/2022 Does Your Home Have Any Fall Risks (un-level Floors, Unfastened Rugs, Poor Lighting, Etc)? No [email or web address] Information not available 10/31/2022 Do You Feel Safe At Home? Yes Information not available 11/28/2023 Do You Have A Medical Power Of Rn Hospice? Yes Information not available 11/28/2023 What Was The Date Of Your Most Recent Tobacco Screening? 01/20/2024 [email or web address] Information not available 01/30/2024 How Many Children Do You Have? 2 [email or web address] Information not available 11/30/2024 Do You Have Any Pets? No CHART_MERGE Information not available 08/19/2023 What Is Your Relationship Status? Lives With In A House CHART_MERGE Information not available 08/19/2023 Do You Use Your Seat Belt Or Car Seat Routinely? Yes CHART_MERGE Information not available 08/19/2023 Are You Sexually Active? No [email or web address] Information not available 11/30/2024 Are You Passively Exposed To Smoke? No CHART_MERGE Information no t available 08/19/2023 Has Tobacco Cessation Counseling Been Provided? No CHART_MERGE Information not available 08/19/2023 How Many Years Have You Smoked Tobacco? 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 [id number] CHART_MERGE Information not available 08/19/2023 Do you [...] available 04/24/2024 10:11:34 Mother Family member 88 [email or web address] Not available 2024 08:54:03 Father Cerebrovascu lar [...] Hep A, adult 8 completed Not Available [facility] 09/04/2023 05:24:25 Influenza, split virus, quadrivalent, PF 0 completed Not Available [facility] 09/04/2023 05:24:25 Td (adult), 2 Lf tetanus toxoid, preservative free, adsorbed 7 completed Not Available [facility] 09/04/2023 05:24:25 COVID-19, mRNA, LNP-S, PF, 100 mcg/0.5mL dose or 50 mcg/0.25mL dose 1 completed [facility] Available [facility] 09/04/2023 05:24:25 Influenza, split virus, trivalent, PF 6 completed Not Available [facility] 09/04/2023 05:24:25 Hep A, adult 9 completed Not Available [facility] 09/04/2023 05:24:25 COVID-19, mRNA, LNP-S, PF, 100 mcg/0.5mL dose or 50 mcg/0.25mL dose 1 completed Not Available [facility] 09/04/2023 05:24:25 Influenza, split virus, quadrivalent, PF 1 completed Not Available [facility] 09/04/2023 05:24:25 Influenza, adjuvanted, quadrivalent, PF 3 completed Not Available [facility] 09/04/2023 05:24:25 COVID-19, mRNA, LNP-S, bivalent, PF, 50 mcg/0.5 mL or 25mcg/0.25 mL dose 3 completed Not Available [facility] 09/04/2023 05:24:25 Influenza, high-dose, quadrivalent, PF 3 completed Not Available [facility] 09/04/2023 05:24:25 Pneumococcal conjugate PCV20, polysaccharide KPS056 conjugate, adjuvant, PF 3 completed Not Available [facility] 09/04/2023 05:24:25 RSV, recombinant, protein subunit RSVpreF, adjuvant reconstituted, 0.5 mL, PF 3 completed Not Available [facility] 09/04/2023 05:24:25 influenza, unspecified formulation 4 completed Karine Schaeferamer null, [place] [facility] [place] & [place] 04/24/2024 10:10:34 pneumococcal, unspecified formulation 1 completed Karine Schaeferamer null[place] [facility] [place] 04/24/2024 10:10:47 Influenza, adjuvanted, trivalent, PF 4 completed Thad Canales MD [address] [facility] [facility] [address], [place], [address], [place] [facility] [place] & [place] 05/19/2024 13:06:50 SARS-COV-2 (COVID-19) vaccine, UNSPECIFIED 1 completed Karine Joy null, [place] [facility] [place] & [place] 09/17/2024 10:20:01 Tdap 5 completed Madison Wills [facility] [place] - [facility] - [place] & [place] 11/30/2024 09:53:01 Past Encounters Encounter ID Performer Location Encounter Start Date Encounter Closed Date Diagnosis/Indication Diagnosis SNOMED-CT Code Diagnosis ICD10 Code Diagnosis Note [id number] Thad Canales MD [facility] [address] [facility] [address] [place] [address] 11/11/2024 08:44:49 11/11/2024 09:54:14 Pain in right foot 5663735469 06111 M79.671 Osteoporosis 63630573 M8 1.[id number] Meyer [address] [facility] [address] [facility] [address] [place] [address] 11/11/2024 10:10:16 11/11/2024 10:35:36 Pain in right foot 1363877281 56173 M79.140 [id number] Thad Canales MD [facility] [address] [facility] [address] [place] [address] 11/30/2024 08:20:06 11/30/2024 10:12:04 Adult health examination 396403311 Z00.00 Hyperlipidemia 44296680 E78.5 mild in the pasthas not required statinrepe at lab pending Osteoporot ic fracture of bone of foot 480870552 M80.071D discussed prior xray, plan of care with podiatry and pending f/upt notes that onc has ordered a f/u bone density test and will keep me updated [id number] Fernandez Jordan MD [facility] [address] [place] [address] 11/25/2024 08:50:27 11/25/2024 09:41:07 Long-term current use of intravenous immune globulin 8960324339 74088 Z79.899 Started subcutaneo us IVIG therapy in May 2019. Tolerating well at this point.Over all improving respirator y status. Will continue as patient is tolerating well.Patie nt continues with every 4 week IVIG supplement ation. Will follow up CBC and CMP prior to IVIG and Xgeva administra tion to monitor for toxicity. Multiple myeloma 5098859 06 C90.00 IgG Lambda multiple myeloma. ISS [...] medication . 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 Anemia 494356491 D64.9 mild anemiaPati ent with history of chronic kidney disease. Iron studies normal on September 02, 2024. Normal B12 and folate. Suspect impact of chronic kidney disease.wi ll follow up labs today. 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 Will continue with as needed Lasix. Pain due t o neoplastic disease 9884197230 9102 G89.3 History of multiple bone fractures secondary to myeloma. Patient currently on oxycodone as needed. Patient previously on fentanyl patch 37.5 mcg every 72 hours. Patch is no longer being paid for by patient's insurance. Recently had to try 25 mcg patch. Dose decreased to 25 mcg patch. Chronic as thmatic bronchitis [id number] J44.9 Patient has been seen by motion picture critic in [facility] and is due to start Tezspire [...] Ativan. Chronic ki dney disease stage 3B [id number] N18.32 Labs on July 10, 2023 with Creatinine 1.8. GFR less than 30 consistent with stage IIIB chronic kidney disease. Will send erythropoi etin level. Hypokalemia [id number] E87 .6 Labs on June 23, 2024 with potassium 2.6 creatinine 1.7 with GFR 32. Magnesium 1.3. Albumin 2.9. Patient continues on potassium and magnesium supplement ation. Patient continues on oral potassium 20 mEq daily. Will follow-up repeat labs today. Menopausal flushing 1983 69610 N95.1 Patient interested in trying new medication for hot flashes Veozah. Only limitation would be patient's chronic kidney disease. If GFR was below 30 would not recommend using. Will send in prescripti on.Patient started on low-dose effexor. Will follow-up for any improvemen t. Drug-induc ed mucositis [id number] K12.32 Continues with magic mouthwash prn. Nausea 007425209 R11.0 as needed zofran and promethazi ne. Hypomagnesemia [id number] E83.42 Labs on May 13, 2024 with critical magnesium 1.2. Will give 2 g IV magnesium. Patient is taking magnesium 400 mg p.o. daily. Patient continues on magnesium supplement ation. Will follow up labs today. Low back pain [id number] M54.50 Patient had fall at home and [...] new areas of bone change. Acute diarrhea [id number] R19.7 Patient with diarrhea for the last couple of days. Reported green stool. Will follow-up stool test make sure patient does not have infection. [id number] LEONIDES COULTER NP [facility] [address] [address] 12/01/2024 08:52:59 12/01/2024 09:52:51 Laryngopharyngeal reflux [id number] K21.9 - Reviewed EGD and biospy results with patient and - no signs of esophagiti s which raises question for if reflux is issue she does report improvemen t with Voquezna-C ontinue 20 mg Voquezna but discussed plan to try and decrease due to GFR- Elevation of head of the bed- Remain upright 2 to 3 hours after eating- Dietary modificati on: Avoidance of triggers such as fatty foods, caffeine, chocolate, spicy foods, food with high fat content, carbonated beverages, peppermint , acidic and citrus items- Avoidance of tight fitting garments- Promotion of salivation through oral lozenges/c hewing gum to neutralize refluxed acid- Avoidance of tobacco and alcohol Multiple myeloma 3986772 06 C90.00 _ reviewed outside oncologist notes- on Revlimid Severe per sistent asthma 149857856 J45.50 - Reviewed external ENT and motion picture critic notes- reports controlled on Tezspire, airsupra, albuterol, singulair Chronic cough 00283963 R 05.3 - reports improvemen t with Voquezna 20 mg- will discuss titrating Voquezna down to 10 mg daily due to decreased GFR at follow up- Per ENT note they recommende d CT sinus MRI if symptoms do not improve Dysphagia [id number] R13.1 0 Health Concerns Section Related Observation LastModified by Organization Detai ls LastModified Time None Recorded Concern Status LastModified by Organization Details LastModified Time None Recorded Payers Encounter Date Sequence Insurance Name Policy Number Policy Mahoney Covered Member ID Mahoney Member ID Guarantor Name 12/01/2024 1 [place] Salima Burrell [id number] Salima Burrell 12/01/2024 2 [employer] - [employer] (MEDICARE SUPPLEMENT) Salima Burrell [id number] Salima Burrell Notes Date Note Type Note Provider Name and Address Organization Details Recorded Time 12/01/2024 text/html Mrs. Mendoza Is 74-year-old female with a history of IgG Lambda multiple myeloma, Lytic bone lesions and recent T11 compression fracture, stage IIIB chronic kidney disease, chronic asthmatic bronchitis , diverticular disease with colovaginal fistula s/p anterior resection and ileostomy with subsequent reversal. She was initially referred to us in March of [address] Hill for two years of chronic cough. She returns today with her after EGD. She was upset due to and EGD with VALDEZ note being completed. She saw Aristides ERAZO in 2022 and that was original plan. Cough has been persistant for years. She has taken azelastine, benzonatate, Singulair, Mucinex. It was documented recent use of humidifier helpful for cough. 02/17/[address] Walker due to refractory cough revealed mild erythema of the gastric antrum. Gastric biopsy revealed acute erosive gastritis and reactive gastropathy. Most recent biopsies showed unremarkable esophageal biopsies and reactive gastropathy with incomplete metaplasia. She was placed on voquezna 10 mg by PCP which was increased to 20 mg. She reports 20mg has been very helpful with her cough. I have discussed the maintenance dose for patients with low GFR is 10 mg. I will revisit lowering her medication at her follow up. She reports issues with solids still feeling like they are getting stuck. Dr. Walker recommend barium swallow to evaluate swallowing. She also has diarrhea which she occasionally takes cholestyramine as needed. Denies any issues with abdominal pain, n/v, bloody stools or changes in her bowel habits. LEONIDES COULTER, ROOM CLEANER [address] , [place], [address], [facility] - [place] & [place] 12/01/2024 22:01:15 OBGyn Episode No OBEpisode recorded.
--- OUTSIDE RECORDS SUMMARY | 2024-12-08 09:26 | XMS_ITS | Continuity of Care Document ---
Author Organization [facility] Phone Care Team Providers Care Blending Line Attendant Name Role Phone THAD SCHNEIDER Unavailable THAD SCHNEIDER Primary Care JAZMINE ANTONIO Admitting JAZMINE ANTONIO Primary Attending ALLERGIES AND ADVERSE REACTIONS ALLERGIES AND ADVERSE REACTIONS Code System Allergy Substance Adverse Reaction Date Reaction (Severity) Comment Status Reported By Updated By [id number] SNOMED CT Sulfa Antibiotics Rash (Moderate) active [id number] on November 18, 2024 5:23:17 PM [place] 6754 RXNorm Demerol Adverse reaction to substance hypotension active [id number] on September 23, 2024 7:59:32 PM UTC BEE VENOM (Free Text Allergy) Anaphylaxis due to substance active [id number] on November 18, 2024 5:23:17 PM [place] FAMILY HISTORY RELATION: Father Status: Cause of : Congestive heart failure Age at : 88 SNOMED-CT Diagnosis Age At Onset [id number] Hypertensive disorder 65024035 Heart disease [id number] Malignant neoplasm of skin RELATION: Mother Status: Cause of : Cerebrovascular accident Age at : 86 SNOMED-CT Diagnosis Age At Onset [id number] Hypertensive disorder 53548197 Osteoporosis RELATION: Sister Status: Cause of : Malignant tumor of breast Age at : 44 SNOMED-CT Diagnosis Age At Onset Information not available RESULTS Patient: NIA Lopez Date of : 1950 7 LABORATORY RESULTS ORDER 200: GASTROINTESTINAL PANEL STL PCR (LOINC: 95753-6) ORDER DATE: December 01, 2024 2:32:00 PM UTC Specimen Source: STOOL Specimen Type: Stool specime n PERFORMING LAB: [address] [id number] Result Comment: Final Result Date: December 01, 2024 5:53:00 PM UTC (TECH: AAC) LOINC TEST FLAG [place] [address] Campylobacter coli+jejuni+upsaliensis DNA [Presence] in Stool by Target amplification with non-probe based detection N NOT DETECTED NOT DETECTED December 01, 2024 5:53:00 PM UTC (TECH: AAC) 72712-6 Clostridium difficil e toxin A+B (tcdA+tcdB) genes [Presence] in Stool by Target amplification with non-probe based detection N NOT DETECTED NOT DETECTED December 01, 2024 5:53:00 PM UTC (TECH: AAC) 10261-8 Plesiomonas shigelloides DNA [Presence] in Stool by Target amplification with non-probe based detection N NOT DETECTED NOT DETECTED December 01, 2024 5:53:00 PM UTC (TECH: AAC) 42108-6 Salmonella enterica+bongori DNA [Presence] in Stool by Target amplification with non-probe based detection N NOT DETECTED NOT DETECTED December 01, 2024 5:53:00 PM UTC (TECH: AAC) 6579-7 Vibrio sp identified in Stool by Organism specific culture N NOT DETECTED NOT DETECTED December 01, 2024 5:53:00 PM UTC (TECH: AAC) 74787-0 Vibrio cholerae DNA [Presence] in Stool by Target amplification with non-probe based detection N NOT DETECTED NOT DETECTED December 01, 2024 5:53:00 PM UTC (TECH: AAC) 20043-8 Yersinia enterocolit ica DNA [Presence] in Stool by Target amplification with non-probe based detection N NOT DETECTED NOT DETECTED December 01, 2024 5:53:00 PM UTC (TECH: AAC) 46129-9 Escherichia coli enteroaggregative Santana plasmid aggR+aatA genes [Presence] in Stool by Target amplification with non-probe based detection N NOT DETECTED NOT DETECTED December 01, 2024 5:53:00 PM UTC (TECH: AAC) 14249-5 Escherichia coli enteropathogenic eae gene [Presence] in Stool by Target amplification with non-probe based detection N NOT DETECTED NOT DETECTED December 01, 2024 5:53:00 PM UTC (TECH: AAC) 13050-7 Escherichia coli enterotoxigenic ltA+st1a+st1b genes [Presence] in Stool by Target amplification with non-probe based detection N NOT DETECTED NOT DETECTED December 01, 2024 5:53:00 PM UTC (TECH: AAC) 56926-5 Escherichia coli shiga-like toxin 1+2 (stx1+stx2) genes [Presence] in Stool by Target amplification with non-probe based detection N NOT DETECTED NOT DETECTED December 01, 2024 5:53:00 PM UTC (TECH: AAC) 43448-6 Escherichia coli O15 7 DNA [Presence] in Stool by Target amplification with non-probe based detection N N/A NOT DETECTED December 01, 2024 5:53:00 PM UTC (TECH: AAC) 47476-5 Shigella species+EIE C invasion plasmid antigen H (ipaH) gene [Presence] in Stool by Target amplification with non-probe based detection N NOT DETECTED NOT DETECTED December 01, 2024 5:53:00 PM UTC (TECH: AAC) 61978-0 Cryptosporidium sp D NA [Presence] in Stool by Target amplification with non-probe based detection N NOT DETECTED NOT DETECTED December 01, 2024 5:53:00 PM UTC (TECH: AAC) 60363-5 Cyclospora cayetanen sis DNA [Presence] in Stool by Target amplification with non-probe based detection N NOT DETECTED NOT DETECTED December 01, 2024 5:53:00 PM UTC (TECH: AAC) 37948-3 Entamoeba histolytic a DNA [Presence] in Stool by Target amplification with non-probe based detection N NOT DETECTED NOT DETECTED December 01, 2024 5:53:00 PM UTC (TECH: AAC) 65523-1 Giardia lamblia DNA [Presence] in Stool by Target amplification with non-probe based detection N NOT DETECTED NOT DETECTED December 01, 2024 5:53:00 PM UTC (TECH: AAC) 33476-3 Adenovirus 40+41 DNA [Presence] in Stool by Target amplification with non-probe based detection N NOT DETECTED NOT DETECTED December 01, 2024 5:53:00 PM UTC (TECH: AAC) 46731-2 Astrovirus subtypes 1-8 RNA [Presence] in Stool by Target amplification with non-probe based detection N NOT DETECTED NOT DETECTED December 01, 2024 5:53:00 PM UTC (TECH: AAC) 09981-6 Norovirus genogroup I+II RNA [Presence] in Stool by Target amplification with non-probe based detection N NOT DETECTED NOT DETECTED December 01, 2024 5:53:00 PM UTC (TECH: AAC) 25015-7 Rotavirus A RNA [Presence] in Stool by Target amplification with non-probe based detection N NOT DETECTED NOT DETECTED December 01, 2024 5:53:00 PM UTC (TECH: AAC) 53514-6 Sapovirus genogroups I+II+IV+V RNA [Presence] in Stool by Target amplification with non-probe based detection N NOT DETECTED NOT DETECTED December 01, 2024 5:53:00 PM UTC (TECH: AAC) ORDER 500: FECAL FAT QUAL (L OINC: 87851-4) ORDER DATE: December 01, 2024 2:32:00 PM UTC Specimen Source: STOOL Specimen Type: Stool specime n PERFORMING LAB: [facility] [address] [facility] [id number] Result Comment: December 03, 2024 11:09:00 PM UTC Normal (<100 Droplets/HPF) Result Comment: December 03, 2024 11:09:00 PM UTC Performed at: [facility] Result Comment: December 03, 2024 11:09:00 PM UTC [address] [place], [place] [id number] Result Comment: December 03, 2024 11:09:00 PM UTC [employer] Processing Labourer: Sivakumar Aviles PhD, Phone: [phone] Result Comment: December 03, 2024 11:09:00 PM UTC Final Result Date: December 01, 2024 1:30:00 AM UTC (TECH: LAB) LOINC TEST FLAG RES[place] [address] Fat.neutral [Presenc e] in Stool N Normal December 01, 2024 1:3 0:00 AM UTC (TECH: LAB) 2270-7 Fat [Presence] in Stool N Normal December 01, 2024 1:30:00 AM UTC (TECH: LAB) LABORATORY NARRATIVE RESULTS Information is not available RADIOLOGY RESULTS Information is not available PATHOLOGY NARRATIVE RESULTS Information is not available MICROBIOLOGY RESULTS No Micro Labs/Results Exist for Patient BLOOD ADMIN RESULTS Information is not available TREATMENT PLAN DISCHARGE MEDICATIONS Status RXNORM Medication Dose Route Frequency Dates Comments U pdated By Patient discharge medication information is not available. PATIENT OPEN ORDERS Code System Description Frequency Occurrences Priority Start Date Ordering Physician Updated By 673-4 LOINC Ova and parasites identified in Unspecified spe ONE TIME 0 Routine December 01, 2024 2:31:00 PM [facility] MARISELA Conley [id number] on December 01, 2024 2:32:00 PM [facility] SCHEDULED PROCEDURES Code System Description Status Scheduled Date Upd ated By Patient scheduled procedure information is not available. MEDICATIONS HOME MEDICATIONS Status RXNORM NDC Medication Dose Route Frequency Dates Comments Reported By Updated By Drug Treatment Unknown DISCHARGE MEDICATIONS Status RXNORM NDC Medication Dose Route Frequency Dates Comments Physician Updated By No Discharge Medication Info rmation Available INPATIENT MEDICATIONS Status RXNORM NDC Medication Dose Route Frequency Rat e Quantity Dates Comments Physician Updated By No Inpatient Medication Info rmation Available SOCIAL HISTORY SOCIAL HISTORY SNOMED-CT Social History Element Description Effective Dates Offered Cessation Comment UpdatedBy [id number] Historical Tobacco smoking status Never Smoked [id number] on November 03, 2024 2:18:44 PM [facility] [id number] Historical Tobacco smoking status Unknown If Ever Smoked [id number] on June 20, 2023 6:22:27 AM [facility] [id number] Historical Tobacco smoking status Former Smoker [id number] on April 15, 2017 4:19:25 PM [facility] SOCIAL HISTORY - Gender Sex: Female SOCIAL HISTORY - Status : status i nformation is not available Intention in Next Year: intention information is not available SOCIAL HISTORY - Sexual Behavior Sexual Orientation Gender Identity SNOMED-CT Description SNO MED -CT Description Activity Level No of Partners Partner Type UpdatedBy Information is not available HEALTH CONCERNS Problems Concern Status Health Concern problem infor mation not available. Smoking Status Status Years Used Consumed packs p er day Health Concern smoking histo ry information not available. Family History Concern Status Health Concern family histor y information not available. MEDICAL EQUIPMENT MEDICAL EQUIPMENT Device Status Quantity Dates Procedure Comments Updated By Vascular port and catheter TOMA: [id number] [id number] Assigning Authority: [facility] Device Identifier:[id number] Lot or Batch Number:[id number] Expiration Date:2021-05-21 ACTIVE Implanted: July 06, 2020 Insertion of implantable venous access port [id number] on July 06, 2020 6:52:42 PM [facility] ENCOUNTERS ENCOUNTER INFORMATION Reason for Visit LAB DROP Admission December 01, 2024 2:13:[address] [address] Discharge December 01, 2024 2:13:00 PM [facility] DISC HARGED TO HOME OR SELF CARE ENCOUNTER DIAGNOSES Notes information is not erasmo ilable. Code System Diagnosis Onset Date Diagnosis information is not available. ABSTRACT DIAGNOSES Code System Diagnosis Updated By R19.7 ICD10 DIARRHEA, UNSPECIFIED UAF135 2 on December 03, 2024 3:31:51 AM [facility] R19.7 ICD10 DIARRHEA, UNSPECIFIED ECT866 2 on December 03, 2024 3:31:53 AM [facility] CARE TEAM Care Blending Line Attendant Role THAD SCHNEIDER Referring THAD SCHNEIDER Primary Care JAZMINE ANTONIO Admitting JAZMINE ANTONIO Primary Attending CARE TEAM CARE laundry aid Role on Team Status Start Date End Date Update d By JENNIE CANO Referring normal December 01, 2024 4:00:00 AM [facility] December 01, 2024 2:13:00 PM [facility] [id number] on December 01, 2024 2:15:32 PM [facility] MARISELA CANO Attending normal December 01 4:00:00 AM [facility] December 01, 2024 2:13:00 PM [facility] [id number] on December 01, 2024 2:15:32 PM [facility] MARISELA CANO Admitting normal December 01 4:00:00 AM [facility] December 01, 2024 2:13:00 PM [facility] [id number] on December 01, 2024 2:15:32 PM [facility] JENNIE CANO PCP normal December 01, 2024 4:00:00 AM [facility] December 01, 2024 2:13:00 PM [facility] [id number] on December 01, 2024 2:15:32 PM [facility]
--- OUTSIDE RECORDS SUMMARY | 2024-12-08 09:26 | XMS_ITS | Continuity of Care Document ---
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 Plan of Treatment Reminders Order Date Submit Date Provider Last Modified By Organization Details Last Modified Time Details Appointments FOLLOW UP 30 2024 09:00A M Fernandez Antonio MD Not available Not available Not available Establish ed Visit 15 min 2024 09:00A M LEONIDES COULTER NP Not available Not available Not available Lab urinalysi s, dipstick 2024 025 [facility], [address], [place], [address], 10/20/2024 12:15:45 culture, urine 2024 025 [facility], [address] [place] [address], [address], 10/23/2024 03:36:24 Referral None recorded. Procedures None recorded. Surgeries None recorded. Imaging None recorded. Medication Orders None recorded. Patient TargetsNo targets recorded. Patient InstructionsNo instructions recorded. Reason for Referral None Reported. Results Created Date Observation Date Name Description Value Unit Range Abnormal Flag Note LastModifiedBy Organization Detail LastModifiedTime 10/21/19 25 10/20/2024 urina lysis , dipst ick Leukocytes (reference range) negati ve Not Available [facility] [address] [facility] [address], [place], [address], 10/20/2024 10:03:45 10/21/19 25 10/20/2024 urina lysis , dipst ick Nitrite (reference range:) negati ve Not Available [facility] [address] [facility] [address], [place], [address], 10/20/2024 10:03:45 10/21/19 25 10/20/2024 urina lysis , dipst ick Urobilinogen (reference range) 0.2 Not Available [facility] [address] [facility] [address], [place], [address], 10/20/2024 10:03:45 10/21/19 25 10/20/2024 urina lysis , dipst ick Protein (reference range) negati ve Not Available [facility] [address] [facility] [address], [place], [address], 10/20/2024 10:03:45 10/21/19 25 10/20/2024 urina lysis , dipst ick pH (reference range 5-8.5) 5.5 Not Available [facility] [address] [facility] [address], [place], [address], 10/20/2024 10:03:45 10/21/19 25 10/20/2024 urina lysis , dipst ick Blood (reference range:) hemoly zed: Trace Not Available [facility] [address] [facility] [address], [place], [address], 10/20/2024 10:03:45 10/21/19 25 10/20/2024 urina lysis , dipst ick Specific [place] (reference range) 1.015 Not Available [facility] [address], [place], [address], 10/20/2024 10:03:45 10/21/19 25 10/20/2024 urina lysis , dipst ick Ketone (reference range) negati ve Not Available [facility] [address] [facility] [address], [place], [address], 10/20/2024 10:03:45 10/21/19 25 10/20/2024 urina lysis , dipst ick Bilirubin (reference range) negati ve Not Available [facility] [place] [address] [facility] [address], [place], [address], 10/20/2024 10:03:45 10/21/19 25 10/20/2024 urina lysis , dipst ick Glucose (reference range) negati ve Not Available [facility] [place] [address] [facility] [address], [place], [address], 10/20/2024 10:03:45 10/21/19 25 10/20/2024 urina lysis , dipst ick Color (reference range: yellow-brown ) Yellow Not Available [facility] [address] [facility] [address], [place], [address], 10/20/2024 10:03:45 10/01/19 25 09/30/2024 lumba r spine 4V min [facility] [address] [place] [address] Phone: Fax: Name: SALIMA KRAMER Exam Date: 025 : 1949 Age 74 years Gender : F Access ion: [id number] Physic bin: FERNANDEZ ANTONIO Facili ty: [facility] Facili ty HSV: Outpat ient Exam: LUMBAR SPINE 4V MIN PROCED URE DESCRI PTION: XR LUMBAR SPINE 4 OR MORE VIEWS CLINIC AL INDICA TION: Low back pain, fall 2 weeks ago, kyphop lasty in 016. TECHNI QUE: 4 views / 5 images submit COMPAR KHUSHBU: CT Abdome n Pelvis 2023. [...] Thank you for referr SALIMA Brown to [facility] al. Legall y authen ticate d by DIPIKA Sahu 09-30 13:02: 30 CC'ed Logic: Orderi ng Provid er: MARISELA LUCERO Attend ing Provid er: MARISELA LUCERO Admitt ing Provid er: MARISELA [email or web address] [facility] [address], [place], [address], 10/01/2024 14:46:42 11/12/19 25 11/11/2024 XR, foot, 3 or more view No observ ation record ed. In-House Imaging - [facility] [address], [place], [address], 11/12/2024 08:32:53 Result Notes None recorded. Problems Name Problem SNOMED Code Status Onset Date Resolution Date Notes Provider Name and Address Organization Details Recorded Time Pain in right foot 6391010228441 07 Active 2024 ANAHY LOONEY [facility], [facility] & [place] 5 10:15:14 Chronic intractabl e migraine without aura 9384087922215 05 Active 2021 [facility] Available [facility] 05:24:21 Restless legs 35033461 Active Not Available [facility] 4 05:24:21 Compressio n fracture Active Not Available [facility] 4 05:24:21 Exacerbati on of moderate persistent asthma 792479558 Active Not Available [facility] 4 05:24:22 Deficiency of macronutri ents 359560835 Active Not Available [facility] 4 05:24:21 Multiple myeloma in remission 34455919 Active Not Available [facility] 4 05:24:22 Nocturia 901225804 Active Not Available [facility] 4 05:24:21 Phleboscle rosis 391820222 Active Not Available [facility] 4 05:24:21 Increased frequency of urination 471109299 Active Not Available [facility] 4 05:24:21 Selective immunoglob ulin E deficiency 038581227 Active Not Available [facility] 4 05:24:21 Gallstone 931282354 Active Not Available [facility] 4 05:24:21 Chronic kidney disease stage 3 702018527 Active Not Available [facility] 4 05:24:22 Neuropathy 222285192 Active Not Available [facility] 4 05:24:22 Asthma 463129441 Active Not Available [facility] 4 05:24:21 Unsteady when walking 18751416 Active Not Available [facility] 4 05:24:21 Hypophosph atemia 6233414 Active Not Available [facility] 4 05:24:22 Chronic pain 66620893 Active Not Available [facility] 4 05:24:22 Allergic rhinitis caused by pollen 62039675 Active Not Available [facility] 4 05:24:21 Incisional hernia 881633511 Active Not Available [facility] 4 05:24:21 Bronchitis 70823317 Active Not Available [facility] 4 05:24:21 Pain in back following surgical procedure 790081007 Active Not Available [facility] 4 05:24:21 Lymphedema 587470559 Active Not Available [facility] 4 05:24:21 Immunoglob ulin G deficiency 7455059346612 6 Active Not Available [facility] 4 05:24:21 Mixed hyperlipid emia 690930716 Active Not Available [facility] 4 05:24:21 Urge incontinen ce of urine 93676990 Active Not Available [facility] 4 05:24:22 Rectovagin al fistula 56337994 Active Not Available [facility] 4 05:24:22 Dysphagia 76404459 Active Not Available [facility] 4 05:24:22 Exacerbati on of severe persistent asthma 862259004 Active Not Available [facility] 4 05:24:22 Vitamin D deficiency 94253000 Active Not Available [facility] 4 05:24:22 Disorder of cardiovasc ular system 54643801 Active Not Available [facility] 4 05:24:22 Cholelithi asis without obstructio n 94821064 Active Not Available [facility] 4 05:24:22 Inflammato ry disease of mucous membrane 97299372 Active Not Available [facility] 4 05:24:22 Chronic bronchitis 67508641 Active Not Available [facility] 4 05:24:22 Respirator y tract infection 544758287 Active Not Available [facility] 4 05:24:21 Colostomy present 535799019 Active Not Available [facility] 4 05:24:21 Environmen krystal allergy 639993514 Active Not Available [facility] 4 05:24:22 Colovagina l fistula 481791701 Active Not Available [facility] 4 05:24:21 Total urinary incontinen ce 973449149 Active Not Available [facility] 4 05:24:21 Multiple myeloma 177634510 Active Not Available [facility] 4 05:24:21 Edema 903288401 Active Not Available [facility] 4 05:24:21 Vesicocoli c fistula 12812522 Active Not Available [facility] 4 05:24:21 Hypocalcem ia 3947641 Active Not Available [facility] 4 05:24:22 Tension-ty pe headache 301547000 Active Not Available [facility] 4 05:24:22 Gastroesop hageal reflux disease 628392107 Active Not Available [facility] 4 05:24:21 Uncomplica sacha severe persistent asthma 599074171 Active Not Available [facility] 4 05:24:22 Acute exacerbati on of chronic obstructiv e pulmonary disease 088734703 Active Not Available [facility] 4 05:24:21 Chronic renal failure 63373635 Active Not Available [facility] 4 05:24:22 Hyperlipid emia 65490680 Active Not Available [facility] 4 05:24:22 Hypokalemi a 68977875 Active Not Available [facility] 4 05:24:22 Recurrent urinary tract infection 895144301 Active Not Available [facility] 4 05:24:21 Chronic kidney disease 895340657 Active Not Available [facility] 4 05:24:22 Screening for malignant neoplasm of breast Active Not Available [facility] 4 05:24:21 Right bundle branch block 04547067 Active Not Available [facility] 4 05:24:22 Bilateral hand weakness 7904093177955 9104 Active 2022 Not Available [facility] 4 05:24:21 Laryngopha ryngeal reflux 186976988 Active 2022 Not Available [facility] 4 05:24:22 Severe persistent asthma 830165125 Active 2022 Not Available [facility] 4 05:24:22 Chronic cough 25747572 Active 2022 Not Available [facility] 4 05:24:22 Acute nontraumat ic kidney injury 9548923821558 03 Active Not Available [facility] 4 05:24:21 Nausea and vomiting 60613178 Active Not Available [facility] 4 05:24:21 Patient immunosupp ressed 828624661 Active Not Available [facility] 4 05:24:22 Community acquired pneumonia 068836072 Active Not Available [facility] 4 05:24:22 Urinary tract infectious disease 12920333 Active Not Available [facility] 4 05:24:22 Obstructiv e sleep apnea syndrome 24729469 Active 2023 Olivia Meyer DO [address] [facility], [place], [address] , [place] - [facility] [place] & [place] 4 09:29:47 Notes:Some problems listed i n Documents: #[id number], #[id number] could not be added to this patient's chart. Please review these documents and add these problems to the patient's chart manually as needed. Problem Notes None recorded. Procedures Surgical History Date Name Laterality Status Provider Name and Address Organization Details Recorded Time 11/04 esophagogastroduodenoscopy completed Alanna andrews [place] [facility] [place] & [place] 5 14:46:48 11/04 Colonoscopy completed Karine [place]ef[place] [facility] [place] & [place] 5 14:46:57 05/18 completed Madison Wills [place] [facility] [place] & [place] 5 08:22:37 05/18 Most Recent Mammogram completed Karine [place] [facility] [place] & [place] 5 10:16:13 02/08 polysomnography completed Karine [place] [facility] [place] 5 10:16:45 12/05 Most Recent Bone Density completed Karine [place] [facility] [place] 5 10:16:10 02/20 Cryosurgery completed Thad Canales MD [address], [place], [address] , [place] [facility] [place] & [place] 3 11:13:28 01/23 cholecystectomy completed Sonal Rhianna [place] [facility] [place] & [place] 3 08:08:43 01/23 repair of incisional hernia completed Yaa [place] [facility] [place] & [place] 3 08:08:21 07/22 Cholecystectomy completed Madison Wills [place] [facility] [place] & [place] 5 08:22:47 12/15 Colonoscopy completed Karine Joy [place] [facility] [place] 5 10:23:58 12/05 Date of Last Colonoscopy completed Madison [place] [facility] [place] & [place] 5 08:22:37 05/03 procedure on knee completed DO [address], [place], [address] , [place] [facility] [place] 3 08:57:05 07/22 Other completed Madison Wills [place] [facility] [place] & [place] 5 08:22:47 07/06 insertion of implantable venous access port completed DO [address], [place], [address] , [place] [facility] [place] 3 08:58:24 07/06 removal of implantable venous access port completed DO [address], [place], [address] , [place] [facility] [place] 3 08:58:40 05/22 excision of part of colon and excision of terminal ileum with ileocolic anastomosis completed DO [address], [place], [address] , [place] [facility] [place] 3 08:56:32 12/21 repair of rectovaginal fistula completed DO [address], [place], [address] , [place] [facility] [place] 3 08:55:42 07/22 kyphoplasty of fracture of spine using fluoroscopic guidance completed DO [address], [place], [address] , [place] [facility] [place] 3 10:34:38 07/22 Other completed Madison Wills [place] [facility] [place] 5 08:22:47 02/19 bronchoscopy completed DO [address], [place], [address] , [place] [facility] [place] 3 08:57:20 02/17 esophagogastroduodenoscopy completed Alanna Miller [place] [facility] [place] 5 10:21:54 07/22 procedure on elbow completed DO [address], [place], [address] , [place] [facility] [place] 3 08:55:21 01/19 bone marrow biopsy, needle or trocar completed Karine Joy [place] [facility] [place] 5 10:22:33 07/22 insertion of implantable venous access port completed DO [address], [place], [address] , [place] [place] [...] of breast completed Sonal S[place]ON - [facility] - [place] & [place] 3 08:04:05 hernia repair completed Delmi Weinstein [place] - [facility] & [place] 3 11:09:01 section completed Sonal SEXTON - [facility] - [place] & [place] 3 08:03:33 Colostomy completed Sonal SEXTON - [facility] & [place] 3 08:11:02 Imaging Results None recorded. Procedure Notes None recorded. Medical Equipment None Reported. Allergies Allergen ID Allergen Name Allergen Category Reaction Reaction Severity Criticality Documentation Date Start Date Code Code System Note Provider Name and Address Organization Details Recorded Time 95697 Substance with sulfonami de structure and antibacte rial mechanism of action (substanc e) medicatio n dizziness hives rash Not available Not available Not available Not available 04/11/2022 34538 8003 SNOMED criti calit y - mediu m Karine Joy null, [place] - [facility] & [place] 3 07:13:57 2419 meperidin e medicatio n hives other Not available Not available low 03/29/2022 6754 RxNorm also rose Vivas ol; hypot ensio n, Karine Joy null, [place] [facility] & [place] 5 10:29:07 34437 honey bee venom environme nt Not available Not available low 05/01/2023 30908 7 RxNorm Karine Joy null, [place] - [facility] & [place] 4 10:09:38 Medications Name Sig [...] propionate 50 mcg/actuati on nasal spray,suspe nsion [place] 2 sprs by nasal route. 09/02 completed [...] 137 mcg-flutica sone 50 mcg/spray nasal spray [place] 1 spr by nasal route. 09/18 completed [...] Not Available Not Available Not Available Vitals None Recorded Social History Question Answer Notes LastModified by Organizat ion Details LastModified Time Tobacco Smoking Status Never Smoker Not Available [facility] 08/19/2023 11:22:25 Do You Have An Advance [...] Do In The Last 7 Days? 0 [email or web address] Information not available 11/30/2024 Have You Recently Or Are You Planning To Travel To An Area With Zika Virus? No CHART_MERGE Information not available 08/19/2023 In General, Would You Say Your Health Is Fair [email or web address] Information not available 10/31/2022 How Would You Describe The Condition Of Your Mouth And Teeth? including False Teeth Or Dentures? Fair [email or web address] Information not available 10/31/2022 In The Past 7 Days, How Many Servings Of Fruits And Vegetables Did You Typically Eat Each Day? (1 Serving = 1 Cup Of Fresh Vegetables, 1? 2 Cup Of Cooked Vegetables, Or 1 Medium Piece Of Fruit. 1 Cup = Size Of A Baseball.) 3-4 Servings Per Day [email or web address] Information not available 11/30/2024 In The Past 7 Days, How Many Servings Of High Fiber Or Whole Grain Foods Did You Typically Eat Each Day? (1 Serving = 1 Slice Of 100% Whole Wheat Bread, 1 Cup Of Whole-grain Or High-fiber Iwdrf-hh-agh Cereal, 1? 2 Cup Of Cooked Cereal Such As Oatmeal, Or 1? 2 Cup Of Cooked Brown Rice Or Whole Wheat Pasta.) 1-2 Servings Per Day [email or web address] Information not available 11/30/2024 In The Past 7 Days, How Many Servings Of Fried Or High-fat Foods Did You Typically Eat Each Day? (Examples Include Fried Chicken, Fried Fish, [place], [place], Potato Chips, [place] Chips, Doughnuts, Creamy Salad Dressings, And Foods Made With Whole Milk, Cream, Cheese, Or Mayonnaise.) 0 Servings Per Day [email or web address] Information not available 11/30/2024 In The Past 7 Days, How Many Sugar-sweetened (not Diet) Beverages Did You Typically Consume Each Day 1-2 Drinks Per Day [email or web address] Information not available 11/30/2024 Each Night, How Many Hours Of Sleep Do You Usually Get? Less Than 5 Hours [email or web address] Information not available 10/31/2022 Do You Snore Or Has Anyone Told You That You Snore? Yes [email or web address] Information not available 10/31/2022 In The Past 7 Days, How Often Have You [place] Sleepy During The Daytime? Always Information not available 10/31/2022 Do You Have Chronic Pain? Yes Information not available 10/31/2022 If Yes, Location Of Pain Neuropathy, Drawing Of Hands And Feet, [place] [email or web address] Information not available 10/31/2022 In The Past 7 Days, How Would You Rate Your Pain? Severe Pain(7-9) Information not available 10/31/2022 Are You In A Pain Management Program? No [email or web address] Information not available 10/31/2022 Do You Take Opioids For Your Pain? Yes [email or web address] Information not available 10/31/2022 How Often Is Stress A Problem For You In Handling Such Things As: Your Health, Your Finances, Your Family And Social Relationships, Your Work? Never Or Rarely [email or web address] Information not available 10/31/2022 How Often Do You Get The Social And Emotional Support You Need: Always [email or web address] Information no t available 10/31/2022 In The Past 7 Days, Did You Need Help From Others To Take Care Of Things Such As Laundry And Housekeep- Ing, Banking, Shopping, Using The Telephone, Food Preparation, Transportation, Or Taking Your Own Medications? Yes [email or web address] Information not available 11/30/2024 Do You Live Alone? No [email or web address] Information not available 10/31/2022 Does Your Home Have Any Fall Risks (un-level Floors, Unfastened Rugs, Poor Lighting, Etc)? No [email or web address] Information not available 10/31/2022 Do You Feel Safe At Home? Yes Information not available 11/28/2023 Do You Have A Medical Power Of [place]? Yes Information not available 11/28/2023 What Was The Date Of Your Most Recent Tobacco Screening? 01/20/2024 [email or web address] Information not available 01/30/2024 How Many Children Do You Have? 2 [email or web address] Information not available 11/30/2024 Do You Have Any Pets? No CHART_MERGE Information not available 08/19/2023 What Is Your Relationship Status? Lives With In A House CHART_MERGE Information not available 08/19/2023 Do You Use Your Seat Belt Or Car Seat Routinely? Yes CHART_MERGE Information not available 08/19/2023 Are You Sexually Active? No Information not available 11/30/2024 Are You Passively Exposed To Smoke? No CHART_MERGE Information no t available 08/19/2023 Has Tobacco Cessation Counseling Been Provided? No CHART_MERGE Information not available 08/19/2023 How Many Years Have You Smoked Tobacco? 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 [id number] CHART_MERGE Information not available 08/19/2023 Do you [...] available 04/24/2024 10:11:34 Mother Family member 88 [email or web address] Not available 2024 08:54:03 Father Cerebrovascu lar [...] Hep A, adult 8 completed Not Available [facility] 09/04/2023 05:24:25 Influenza, split virus, quadrivalent, PF 0 completed [facility] 09/04/2023 05:24:25 Td (adult), 2 Lf tetanus toxoid, preservative free, adsorbed 7 completed Not Available [facility] 09/04/2023 05:24:25 COVID-19, mRNA, LNP-S, PF, 100 mcg/0.5mL dose or 50 mcg/0.25mL dose 1 completed Not Available [facility] 09/04/2023 05:24:25 Influenza, split virus, trivalent, PF 6 completed Not Available [facility] 09/04/2023 05:24:25 Hep A, adult 9 completed Not Available [facility] 09/04/2023 05:24:25 COVID-19, mRNA, LNP-S, PF, 100 mcg/0.5mL dose or 50 mcg/0.25mL dose 1 completed Not Available [facility] 09/04/2023 05:24:25 Influenza, split virus, quadrivalent, PF 1 completed Not Available [facility] 09/04/2023 05:24:25 Influenza, adjuvanted, quadrivalent, PF 3 completed Not Available [facility] 09/04/2023 05:24:25 COVID-19, mRNA, LNP-S, bivalent, PF, 50 mcg/0.5 mL or 25mcg/0.25 mL dose 3 completed Not Available [facility] 09/04/2023 05:24:25 Influenza, high-dose, quadrivalent, PF 3 completed Not Available [facility] 09/04/2023 05:24:25 Pneumococcal conjugate PCV20, polysaccharide [id number] conjugate, adjuvant, PF 3 completed Not Available [facility] 09/04/2023 05:24:25 RSV, recombinant, protein subunit RSVpreF, adjuvant reconstituted, 0.5 mL, PF 3 completed Not Available [facility] 09/04/2023 05:24:25 influenza, unspecified formulation 4 completed Karine Joy null, [place] [facility] [place] 04/24/2024 10:10:34 pneumococcal, unspecified formulation 1 completed Karine [place] [facility] [place] 04/24/2024 10:10:47 Influenza, adjuvanted, trivalent, PF 4 completed Thad Canales MD [address] [facility], [place], [address], [place] [facility] [place] 05/19/2024 13:06:50 SARS-COV-2 (COVID-19) vaccine, UNSPECIFIED 1 completed Karine [place] [facility] [place] 09/17/2024 10:20:01 Tdap 5 completed Madison [place] null[place] [facility] [place] 11/30/2024 09:53:01 Past Encounters Encounter ID Performer Location Encounter Start Date Encounter Closed Date Diagnosis/Indication Diagnosis SNOMED-CT Code Diagnosis ICD10 Code Diagnosis Note [id number] Thad Canales MD [facility] [address] [place] [address] 09/22/2024 13:09:34 09/22/2024 14:01:45 Tear of skin 990744045 T14.8XXD Pain of le ft shoulder joint 4919586839 7133680 M25.512 Excessive sweating 35344 005 R61 [id number] Fernandez Antonio MD [facility] [address] [place] [address] 09/30/2024 08:41:40 09/30/2024 09:10:14 Multiple myeloma [id number] C90.00 IgG Lambda multiple myeloma. ISS stage [...] peripheral neuropathy . Patient continued on Revlimid/d kailaaspriscila mckeon and given complete response on recent [...] labs today. 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 Anemia 235824593 D64.9 mild anemia, will follow up additional labs.Kayley lerner with history of chronic kidney disease. Iron studies normal on September 02, 2024. Normal B12 and folate. Suspect impact of chronic kidney disease. 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 Over the last month slight increase in neuropathy symptoms. Using oxycodone slightly more during this time. Will follow-up discussed potential adjustment of dosing however patient previously had trouble with gabapentin at higher doses with mental status changes.Cu rrently taking gabapentin 300 mg 2 tabs p.o. q.8 hours p.r.n..Pat ient recently started taking low-dose Effexor. Will follow-up On visit on September 02, 2024 patient reported having to take an extra dose of gabapentin . Reports more cramping in her feet. Denies any increase in swelling. Will follow-up labs today. Lymphedema of lower extremity [id number] I89.0 Lower extremity compressio n stockings in place. Will continue with as needed Lasix. Pain due t o neoplastic disease [id number] 9102 G89.3 History of multiple bone fractures secondary to myeloma. Patient currently on oxycodone as needed. Patient on fentanyl patch 37.5 mcg every 72 hours. Patch is no longer being paid for by patient's insurance. Recently had to try 25 mcg patch. On next refill will decrease to 25 mcg patch. Chronic as thmatic bronchitis [id number] J44.9 Patient has been seen by workforce analyst in [facility] and is due to start Tezspire [...] Ativan. Chronic ki dney disease stage 3B [id number] N18.32 Labs on July 10, 2023 with Creatinine 1.8. GFR less than 30 consistent with stage IIIB chronic kidney disease. Will send erythropoi etin level. Hypokalemia [id number] E87 .6 Labs on June 23, 2024 [...] follow-up repeat labs today. Menopausal flushing [id number] N95.1 Patient interested in trying new medication for hot flashes Ve[place]ah. Only limitation would be patient's chronic kidney disease. If GFR was below 30 would not recommend using. Will send in prescripti on.Patient started on low-dose effexor. Will follow-up for any improvemen t. Drug-induc ed mucositis [id number] K12.32 Continues with magic mouthwash. Nausea [id number] R11.0 as needed zofran and promethazi ne. Hypomagnesemia [id number] E83.42 Labs on May 13, 2024 with [...] on magnesium supplement ation. 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 [id number] Thad Canales MD [address] [place] [address] 10/06/2024 12:51:50 10/06/2024 13:56:24 Confusional state [id number] R41.0 Asthenia [id number] R53.1 [id number] Thad Canales MD [address] [place] [address] 10/20/2024 10:00:20 10/20/2024 10:35:35 Clouded consciousness [id number] R41.0 Health Concerns Section Related Observation LastModified by Organization Detai ls LastModified Time None Recorded Concern Status LastModified by Organization Details LastModified Time None Recorded Payers Encounter Date Sequence Insurance Name Policy Number Policy Mahoney Covered Member ID Mahoney Member ID Guarantor Name 10/20/2024 1 [place] Salima Kramer [id number] Salima Kramer 10/20/2024 2 [employer] SUPPLEMENTAL - [employer] (MEDICARE SUPPLEMENT) Salima Kramer [id number] Salima Kramer OBGyn Episode No OBEpisode recorded.
--- NOTE | 2024-12-08 09:30 | MR_ITS ---
FINAL REPORT TECHNIQUE: Multiplanar MR without contrast CLINICAL HISTORY: in remission from multiple myeloma, headaches COMPARISON: None FINDINGS: Diffusion sequences show no signal abnormality to indicate acute infarct. No mass, hemorrhage or edema is seen. Ventricles are normal. Major vascular flow voids are intact. Diffuse calvarial thickening is present without a focal lesion identified. Right maxillary sinusitis is present. IMPRESSION: Unremarkable MR of the brain without contrast Right maxillary sinusitis is present. Reviewed, Interpreted and Dictated by Deandre Dumont MD Transcribed by Sonia Saldana Authenticated and [facility]
== END 2024-12-08 23:59 | disposition home or self-care (01) ==
LOC: RAD 09:20
PROVIDERS: PCP Family Medicine; Visit Provider Specialist
DX: J32.0 Chronic maxillary sinusitis (principal); R51.9 Headache, unspecified
CPT/HCPCS: 70551

== ENCOUNTER 2025-02-23 12:30 | Outpatient (CLI) | payer MEDICARE, OTHER, SELFPAY ==
--- OUTSIDE RECORDS SUMMARY | 2025-02-23 12:33 | XMS_ITS | Encounter Summary ---
Author Organization [employer] ([place], [place], [place], [place]) Address [address] [place] [address] Care Team Providers Care Supervisor Inspection And Testing Name Role Phone Unavailable Primary Care Provider Unavailabl e Encounter Details Date Type Department Care Team (Late st Contact Info) Description 05/27/2020 Transcribed Document [facility] [place] [address] [place] [address] ProviderNuha MD [address] [place] [address] Social History Tobacco Use Types Packs/Day Years Used Date Smoking Tobacco: Never Assessed Comments Unknown Sex and Gender Information Value Date Recorded Sex Assigned at Not on file Legal Sex Female 2:42 PM CDT Gender Identity Not on file Sexual Orientation Not on file documented as of this encounter Miscellaneous Notes * Cerner Conversion Note - Historical ProviderMD - 05/27/2020 2:00 AM MASTER OCEAN YACHT Broadband Engineer Details Entered On: 05/27/2020 2:49 EST Performed On: 05/27/2020 2:00 EST by Ciarra Espino RN Order Details Transport Mode Order Detail : Bed (including specialty) Isolation Precautions Order Detail : Standard Precautions Order Detail : 0 IV Order Detail : 1 Oxygen Order Detail : 0 Nurse Collect Order Detail : 1 Lift/Transfer : Minimal Central Line Order Detail : No Room Service : Appropriate Arterial Line : No Patient Needs Meds Crushed/Liquid : No Ciarra Espino RN - 05/27/2020 2:49 EST Electronically signed by Renay Ribera Conversion Hotel Administrative Assistant Cerner at 11/05/2022 5:55 PM CDT documented in this encounter Plan of Treatment Not on file documented as of this encounter Visit Diagnoses Not on filedocumented in this encounter
--- OUTSIDE RECORDS SUMMARY | 2025-02-23 12:33 | XMS_ITS | Encounter Summary ---
Author Organization [email or web address] ([place], [place], [place], [place]) Address [address] [place] [address] Care Team Providers Care Ground School Instructor Name Role Phone Unavailable Primary Care Provider Unavailabl e Encounter Details Date Type Department Care Team (Late st Contact Info) Description 05/30/2020 Transcribed Document [facility] [place] Family Medicine [address] [place] [address] ProviderNuha MD [address] [place] [address] Social History Tobacco Use Types Packs/Day Years Used Date Smoking Tobacco: Never Assessed Comments Unknown Sex and Gender Information Value Date Recorded Sex Assigned at Not on file Legal Sex Female 2:42 PM CDT Gender Identity Not on file Sexual Orientation Not on file documented as of this encounter Miscellaneous Notes * Cerner Conversion Note - Nuha ProviderMD - 05/30/2020 12:38 PM LOG PROCESSOR OPERATOR Patient: NATE KRAMER Age: 69 years Sex: Female : 1950 Associated Diagnoses: None Author: YOMAIRA PADILLA APRN Chief Complaint s/p ileostomy Review of Systems ROS reviewed as documented in chart no change since last seen by surgeon Health Status Allergies: Allergic Reactions (Selected) Severity Not Documented Meperidine- Hypotension. Sulfa drugs- Hives., Allergies (2) Active Reaction meperidine Hypotension sulfa drugs Hives Current medications: (Selected) Inpatient Medications Ordered midazolam: 1 mg, IV Push, Q10Min, PRN: Anxiety Documented Medications Documented Magic Mouthwash: 5 mL, Swish and Spit, Q6H, PRN: Mouth Sore Pain, 0 Refill(s) Mucinex 600 mg oral tablet, extended release: 2 Tab, Oral, Q12H, PRN: Cough, 0 Refill(s) Proventil HFA 90 mcg/inh inhalation aerosol: 2 Puff, Inhalation, Q4H, PRN: for wheezing, 0 Refill(s) Revlimid 2.5 mg oral capsule: 1 Cap, Oral, Daily, CURRENTLY ON HOLD FOR SCHEDULED PROCEDURE; HOLD 2 WEEKS PRIOR TO SURGERY AND 2 WEEEKS AFTER SURGERY;, 10 Cap, 0 Refill(s) Vitamin B12 1000 mcg oral tablet: 1 Tab, Oral, Daily, 30 Tab, 0 Refill(s) acetaminophen/butalbital/caffeine 325 mg-50 mg-40 mg oral tablet: 1 Tab, Oral, Q4H, PRN: Migraine Headache, 60 Tab, 0 Refill(s) aspirin 81 mg oral tablet, chewable: 1 Tab, Oral, Daily, 30 Tab, 0 Refill(s) buPROPion 150 mg/24 hours (XL) oral tablet, extended release: 1 Tab, Oral, Daily, 0 Refill(s) fentaNYL 37.5 mcg/hr transdermal film, extended release: 1 Patch, Topical, [id number], 0 Refill(s) ferrous sulfate 325 mg (65 mg elemental iron) oral delayed release tablet: 1 Tab, Oral, Daily, 0 Refill(s) gabapentin 300 mg oral capsule: 2 Cap, Oral, TID, 0 Refill(s) loperamide 2 mg oral capsule: 1 Cap, Oral, Q4H, PRN: for loose stool, 60 Cap, 0 Refill(s) magnesium oxide 400 mg (240 mg elemental magnesium) oral tablet: 1 Tab, Oral, BID, 0 Refill(s) methenamine hippurate 1 g oral tablet: 0.5 Tab, Oral, BID, 0 Refill(s) montelukast 10 mg oral tablet: 1 Tab, Oral, Daily, 0 Refill(s) nystatin 100,000 units/g topical cream: 1 Application, Topical, BID, apply to affected areas as directed, PRN: Other (See Comment), 0 Refill(s) omeprazole 40 mg oral delayed release capsule: 1 Cap, Oral, Daily, before a meal, 30 Cap, 0 Refill(s) ondansetron 8 mg oral tablet: 1 Tab, SubLINgual, TID, PRN: Nausea, 0 Refill(s) oxyCODONE 10 mg oral tablet: 1 Tab, Oral, Q6H, PRN: Breakthrough Pain, 0 Refill(s) rOPINIRole 0.25 mg oral tablet: 1 Tab, Oral, BID, 0 Refill(s), Home Medications (20) Active acetaminophen/butalbital/caffeine 325 mg-50 mg-40 mg oral tablet 1 Tab, PRN, Oral, Q4H aspirin 81 mg oral tablet, chewable 81 mg = 1 Tab, Oral, Daily buPROPion 150 mg/24 hours (XL) oral tablet, extended release 150 mg = 1 Tab, Oral, Daily fentaNYL 37.5 mcg/hr transdermal film, extended release 1 Patch, Topical, [id number] ferrous sulfate 325 mg (65 mg elemental iron) oral delayed release tablet 325 mg = 1 Tab, Oral, Daily gabapentin 300 mg oral capsule 600 mg = 2 Cap, Oral, TID loperamide 2 mg oral capsule 2 mg = 1 Cap, PRN, Oral, Q4H Magic Mouthwash 5 mL, PRN, Swish and Spit, Q6H magnesium oxide 400 mg (240 mg elemental magnesium) oral tablet 400 mg = 1 Tab, Oral, BID methenamine hippurate 1 g oral tablet 0.5 Gram = 0.5 Tab, Oral, BID montelukast 10 mg oral tablet 10 mg = 1 Tab, Oral, Daily Mucinex 600 mg oral tablet, extended release 1,200 mg = 2 Tab, PRN, Oral, Q12H nystatin 100,000 units/g topical cream 1 Application, PRN, Topical, BID omeprazole 40 mg oral delayed release capsule 40 mg = 1 Cap, Oral, Daily ondansetron 8 mg oral tablet 8 mg = 1 Tab, PRN, SubLINgual, TID oxyCODONE 10 mg oral tablet 10 mg = 1 Tab, PRN, Oral, Q6H Proventil HFA 90 mcg/inh inhalation aerosol 2 Puff, PRN, Inhalation, Q4H Revlimid 2.5 mg oral capsule 2.5 mg = 1 Cap, Oral, Daily rOPINIRole 0.25 mg oral tablet 0.25 mg = 1 Tab, Oral, BID Vitamin B12 1000 mcg oral tablet 1,000 mcg = 1 Tab, Oral, Daily , Medications (1) Active Scheduled: (0) Continuous: (0) PRN: (1) midazolam 1 mg/1 mL inj 2 mL 1 mg 1 mL, IV Push, Q10Min Problem list: All Problems Sleep apnea//no machine / SNOMED CT 608287072 / Confirmed Sinusitis / SNOMED CT 15457338 / Confirmed Restless legs syndrome / SNOMED CT 78975941 / Confirmed Multiple myeloma / SNOMED CT 183363053 / Confirmed Skin cancer / SNOMED CT 2755921433 / Confirmed Hypotension / SNOMED CT 303590729 / Confirmed 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 / SNOMED CT 5272248700 / Confirmed Hyperkalemia / SNOMED CT 86276162 / Confirmed GERD - Gastro-esophageal reflux disease / SNOMED CT 7800169670 / Confirmed Ribs, multiple fractures / SNOMED CT 3207525 / Confirmed Fistula//colon//bladder//vaginia / SNOMED CT 1308519508 / Confirmed Dizziness / SNOMED CT 0806731408 / Confirmed Difficulty walking//walker / SNOMED CT 4041643684 / Confirmed Chronic diarrhea / SNOMED CT 187377216 / Confirmed BBB (bundle branch block)//right / SNOMED CT 34244124 / Confirmed Back pain //multiple fractures / SNOMED CT 797185641 / Confirmed Asthma / SNOMED CT 743880752 / Confirmed Allergic rhinitis / SNOMED CT 602348176 / Confirmed, Active Problems (18) Allergic rhinitis Asthma Back pain //multiple fractures BBB (bundle branch block)//right Chronic diarrhea Difficulty walking//walker Dizziness Fistula//colon//bladder//vaginia GERD - Gastro-esophageal reflux disease Hyperkalemia Hypotension 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 Dental disorder//bottom teeth extraction//stitches intact (8712891429): Resolved. Urinary tract infection//jul 2018 (284607746): Resolved. Family History: No family history items have been selected or recorded. Procedure history: low anterior resection with loop ileostomy in the month of 12/2019 at 69 Years. left shoulder surgery in 2014 at 65 Years. skin cancer excision in 2013 at 64 Years. left knee replacement in 2011 at 62 Years. right knee replacement in 2010 at 61 Years. left wrist surgery//pins in 2005 at 56 Years. hysterectomy in 1982 at 33 Years. right breast lumpectomy in 1981 at 32 Years. tubal in 1980 at 31 Years. cyst on ovary in 1978 at 29 Years. D/C//miscarriage in 1972 at 23 Years. c/section. Comments: 12/18/2019 11:55 EDT - ANTONIO MCDONALD RN 1974 and 1976 kyphoplasty//x4. left elbow surgery//plates and screws. colonoscopy. Social History Social & Psychosocial Habits Alcohol 12/18/2019 Alcohol Use History, Social Habits No Home/Environment 12/18/2019 Lives with: Spouse Home equipment: Respiratory treatments, Walker/Cane Substance Abuse 12/18/2019 Recreational Drug Use History No Recreational Drug Use Last 12 Months No Tobacco 12/18/2019 Smoking Status Never (less than 100 in l Smokeless Tobacco Status Never . Physical Examination VS/Measurements No qualifying data available General: Alert and oriented, No acute distress. Eye: Pupils are equal, round and reactive to light, Extraocular movements are intact, glasses. HENT: Normocephalic, Normal hearing. Neck: Supple, Non-tender. Respiratory: Lungs are clear to auscultation, Respirations are non-labored. Cardiovascular: Normal rate, Regular rhythm, No murmur, No gallop, No edema. Gastrointestinal: Soft, Non-tender, R ileostomy . Genitourinary: No costovertebral angle tenderness. Lymphatics: No lymphadenopathy neck, axilla, groin. Musculoskeletal: Normal range of motion, Normal strength. Integumentary: Warm, Dry, [place]. Neurologic: Alert, Oriented. Psychiatric: Cooperative, Appropriate mood & affect. Review / Management Results review: Labs (Last four charted values) WBC 4.8 (MAY 26) HB 13.5 (MAY 26) HCT 41.5 (MAY 26) Plt 314 (MAY 26) Na L 126 (MAY 26) K C 7.4 (MAY 26) Cl 102 (MAY 26) CO2 L 20 (MAY 26) BUN H 33 (MAY 26) Cr H 1.80 (MAY 26) Glu R 85 (MAY 26) Ca 8.9 (MAY 26) AST 33 (MAY 26) ALT 54 (MAY 26) ALK P H 218 (MAY 26) T Bili 0.5 (MAY 26) PTN 7.7 (MAY 26) ALB 4.1 (MAY 26) . Impression and Plan Condition: Stable. documented in this encounter Plan of Treatment Not on file documented as of this encounter Visit Diagnoses Not on filedocumented in this encounter
--- OUTSIDE RECORDS SUMMARY | 2025-02-23 12:33 | XMS_ITS | Encounter Summary ---
Author Organization [employer] ([place], [place], [place], [place]) Address [address] [place] [address] Care Team Providers Care Party Demonstrator Name Role Phone Unavailable Primary Care Provider Unavailabl e Encounter Details Date Type Department Care Team (Late st Contact Info) Description 05/30/2020 Transcribed Document [facility] [place] Family Medicine [address] [place] [address] ProviderNuha MD [address] [place] [address] Social History Tobacco Use Types Packs/Day Years Used Date Smoking Tobacco: Never Assessed Comments Unknown Sex and Gender Information Value Date Recorded Sex Assigned at Not on file Legal Sex Female 2:42 PM CDT Gender Identity Not on file Sexual Orientation Not on file documented as of this encounter Miscellaneous Notes * Cerner Conversion Note - Historical ProviderMD - 05/30/2020 4:54 PM PHARMACEUTICAL SALES REPRESENTATIVE Family/Agency/Support Person Communication Entered On: 05/30/2020 16:55 EST Performed On: 05/30/2020 16:54 EST by Cristina Kelly Advisory Software Engineer/Agency/Support Person Communication Date/Time of Communication : 05/30/2020 16:54 EST Communicated with : Spouse Communication Method : Telephone Communication Details : updated patient spouse. patient going to room 446. Cristina Kelly Rn - 05/30/2020 16:54 EST documented in this encounter Plan of Treatment Not on file documented as of this encounter Visit Diagnoses Not on filedocumented in this encounter
--- OUTSIDE RECORDS SUMMARY | 2025-02-23 12:33 | XMS_ITS | Encounter Summary ---
Author Organization [employer] ([place], [place], [place], [place]) Address [address] [place] [address] Care Team Providers Care Business Continuity Director Name Role Phone Unavailable Primary Care Provider Unavailabl e Encounter Details Date Type Department Care Team (Late st Contact Info) Description 05/30/2020 Transcribed Document [facility] [place] Family Medicine [address] [place] [address] ProviderNuha MD [address] [place] [address] Social History Tobacco Use Types Packs/Day Years Used Date Smoking Tobacco: Never Assessed Comments Unknown Sex and Gender Information Value Date Recorded Sex Assigned at Not on file Legal Sex Female 2:42 PM CDT Gender Identity Not on file Sexual Orientation Not on file documented as of this encounter Miscellaneous Notes * Cerner Conversion Note - Historical ProviderMD - 05/30/2020 1:00 PM HEAVY MOBILE EQUIPMENT REPAIRER [facility] Main OR Preop Summary Primary Physician: BHUPENDRA MARISCAL MD-PRO Finalized Date/Time: 05/30/20 13:30:12 Pt. Name: NATE KRAMER/Sex: 1950 Female Med Rec #: [id number] Physician: BHUPENDRA MARISCAL MD-PRO Financial #: [id number] Pt. Type: I Room/Bed: ASA/3 Admit/Disch: 05/30/20 06:50:00 - Institution: [facility] PreOp Case Times Entry 1 In Preop 05/30/20 11:22:00 Ready for Holding n/a Room Patient Ready for 05/30/20 13:21:00 Surgery Patient Out of Preop 05/30/20 13:30:00 Patient Out of n/a Holding Room Last Modified By: Nadine Mcgarry RN 05/30/20 13:30:11 [facility] PreOp Case Times Audit 05/30/20 13:30:11 Rigging Man: WILD Modifier: RAMEZALR <+> 1 Patient Out of Preop <+> 1 Patient Ready for Surgery Finalized By: Nadine Mcgarry, RN Document Signatures Signed By: Nadine Mcgarry RN 05/30/20 13:30 Electronically signed by Bac[facility] Conversion Wheat Shipper Cerner at 11/05/2022 5:57 PM CDT documented in this encounter Plan of Treatment Not on file documented as of this encounter Visit Diagnoses Not on filedocumented in this encounter
--- OUTSIDE RECORDS SUMMARY | 2025-02-23 12:33 | XMS_ITS | Encounter Summary ---
Author Organization [employer] ([place], [place], [place], [place]) Address [address] [place] [address] Care Team Providers Care Railroad Car Cleaner Name Role Phone Unavailable Primary Care Provider Unavailabl e Encounter Details Date Type Department Care Team (Late st Contact Info) Description 05/30/2020 Transcribed Document [facility] [place] Family Medicine [address] [place] [address] ProviderNuha MD [address] [place] [address] Social History Tobacco Use Types Packs/Day Years Used Date Smoking Tobacco: Never Assessed Comments Unknown Sex and Gender Information Value Date Recorded Sex Assigned at Not on file Legal Sex Female 2:42 PM CDT Gender Identity Not on file Sexual Orientation Not on file documented as of this encounter Miscellaneous Notes * Cerner Conversion Note - Historical ProviderMD - 05/30/2020 10:40 PM SHIP WIRER Pain Assessment Entered On: 05/31/2020 3:19 EST Performed On: 05/31/2020 0:04 EST by Dhara Kelly RN Intervention Information: APAP/butalbital/caffeine Performed by Dhara Kelly RN on 05/30/2020 23:04:00 EST APAP/butalbital/caffeine,1Tab Oral,Headache Pain Assessment Pain Assessment : Follow-up assessment Pain Scale Goal : 3 Pain Scale Used : 0-10 Scale Dhara Kelly RN - 05/31/2020 3:19 EST Pain Scale Intensity : 6 Dhara Kelly RN - 05/31/2020 3:19 EST Image 4 - Images currently included in the form version of this document have not been included in the text rendition version of the form. documented in this encounter Plan of Treatment Not on file documented as of this encounter Visit Diagnoses Not on filedocumented in this encounter
--- OUTSIDE RECORDS SUMMARY | 2025-02-23 12:33 | XMS_ITS | Encounter Summary ---
Author Organization [employer] ([place], [place], [place], [place]) Address [address] [place] [address] Care Team Providers Care Supervisor Train Operations Name Role Phone Unavailable Primary Care Provider Unavailabl e Encounter Details Date Type Department Care Team (Late st Contact Info) Description 05/30/2020 Transcribed Document [facility] [place] [facility] [place] [address] ProviderNuha MD [address] [place] [address] Social History Tobacco Use Types Packs/Day Years Used Date Smoking Tobacco: Never Assessed Comments Unknown Sex and Gender Information Value Date Recorded Sex Assigned at Not on file Legal Sex Female 2:42 PM CDT Gender Identity Not on file Sexual Orientation Not on file documented as of this encounter Miscellaneous Notes * Cerner Conversion Note - Nuha ProviderMD - 05/30/2020 2:52 PM RADIUS GRINDER DATE OF PROCEDURE: 05/30/2020 SURGEON: Marilin Decker MD ONCOLOGIST: Dr. Fernandez Jordan. PRIMARY CARE PHYSICIAN: Dr. Jenn Rosales. PREOPERATIVE DIAGNOSES: 1. History of low anterior resection with takedown of colovaginal and colovesical fistula and ileostomy creation approximately 5 months ago. 2. Ileostomy in place. 3. Unwanted ileostomy. POSTOPERATIVE DIAGNOSES: 1. History of low anterior resection with takedown of colovaginal and colovesical fistula and ileostomy creation approximately 5 months ago. 2. Ileostomy in place. 3. Unwanted ileostomy. PROCEDURE PERFORMED: Ileostomy reversal. COMPLICATIONS: None. SPECIMENS: Ileostomy trim. ANESTHESIA: General endotracheal anesthesia and TAP block. INDICATION FOR PROCEDURE: Salima is a 69-year-old female, who underwent low anterior resection with takedown of colovesical and colovaginal fistula about 5 months ago. Endoscopic evaluation of her anastomosis as well as Gastrografin enema revealed healthy and well healed anastomosis. Risks, benefits, and alternatives of ileostomy reversal were discussed in the office and in the preoperative area today. She expressed understanding and desired to proceed. PROCEDURE IN DETAIL: Salima was brought to the operating room, placed in supine position. After successful induction of general endotracheal anesthesia, the operative site was prepped and draped in the usual sterile fashion. The ileostomy was resected from the mucocutaneous border. The adhesions in the subcutaneous space were dissected free until the fascia was encountered. Subfascial adhesions were taken down tediously, but safely until both limbs of the bowel were completely free and in the wound. The mesentery was resected at the level of the stoma and a tvbd-th-zafn anastomosis was performed with the 75 GEORGINA blue stapler. The anastomosis was inspected for webbing and bleeding. There were none. The staple lines were offset and the common enterotomy was closed with a single firing of the 75 GEORGINA blue stapler. The location where the staple lines intersected was oversewn with 3-0 Vicryl stitch. The bowel was replaced back into the abdomen. The fascia was closed with interrupted cvwday-le-faepp PDS suture. The subcutaneous tissue was irrigated and dried. The skin was closed with a loose pursestring of Monocryl. A dilute Betadine moistened 4 x 4 was placed in the wound. A Covaderm was applied. All counts were announced as correct at the end of the case. The patient tolerated the procedure well, was extubated in the operating room, transferred to Recovery in stable condition. /[id number] Marilin Decker MD JR/AQ / / MODL /[id number] CC: Dr. Jenn Jordan Electronically signed by [facility] Conversion Development System Efficiency Manager Cerner at 11/05/2022 5:48 PM CDT documented in this encounter Plan of Treatment Not on file documented as of this encounter Visit Diagnoses Not on filedocumented in this encounter
--- OUTSIDE RECORDS SUMMARY | 2025-02-23 12:33 | XMS_ITS | Encounter Summary ---
Author Organization [employer] ([place], [place], [place], [place]) Address [address] [place] [address] Care Team Providers Care Communications Maintainer Name Role Phone Unavailable Primary Care Provider Unavailabl e Encounter Details Date Type Department Care Team (Late st Contact Info) Description 05/27/2020 Transcribed Document [facility] [place] [address] [place] [address] ProviderNuha MD [address] [place] [address] Social History Tobacco Use Types Packs/Day Years Used Date Smoking Tobacco: Never Assessed Comments Unknown Sex and Gender Information Value Date Recorded Sex Assigned at Not on file Legal Sex Female 2:42 PM CDT Gender Identity Not on file Sexual Orientation Not on file documented as of this encounter Miscellaneous Notes * Cerner Conversion Note - Historical ProviderMD - 05/27/2020 2:08 PM HOSPITAL PRODUCT SPECIALIST Therapy Screen, PT Entered On: 05/27/2020 14:09 EST Performed On: 05/27/2020 14:08 EST by MARLO SANTANA PT Therapy Screen, PT Medical Chart Reviewed : Yes Person Providing Information : Nurse, Patient Screen Completed : Yes Recommendation for Evaluation, PT : None Recommendations Upon Discharge : None Additional Therapy Screen Comment : Pt had PT/OT orders for mobility and now has orders to D/C home. RNBen, states that pt is physically ind and pt confirms. Pt declines the need for PT/OT evals prior to D C home today. MARLO SANTANA PT - 05/27/2020 14:08 EST Electronically signed by Bacilio [facility] Conversion Taxicab Dispatcher Cerner at 11/05/2022 6:10 PM CDT documented in this encounter Plan of Treatment Not on file documented as of this encounter Visit Diagnoses Not on filedocumented in this encounter
--- OUTSIDE RECORDS SUMMARY | 2025-02-23 12:33 | XMS_ITS | Encounter Summary ---
Author Organization [employer] ([place], [place], [place], [place]) Address [address] [place] [address] Care Team Providers Care Multi Share Program Coordinator Name Role Phone Unavailable Primary Care Provider Unavailabl e Encounter Details Date Type Department Care Team (Late st Contact Info) Description 05/30/2020 Transcribed Document [facility] [place] [facility] [place] [address] ProviderNuha MD [address] [place] [address] Social History Tobacco Use Types Packs/Day Years Used Date Smoking Tobacco: Never Assessed Comments Unknown Sex and Gender Information Value Date Recorded Sex Assigned at Not on file Legal Sex Female 2:42 PM CDT Gender Identity Not on file Sexual Orientation Not on file documented as of this encounter Miscellaneous Notes * [employer]ner Conversion Note - Historical ProviderMD - 05/30/2020 5:19 PM TRAINING ADMINISTRATOR Admission History, Adult Entered On: 05/30/2020 17:29 EST Performed On: 05/30/2020 17:19 EST by Patricia Stuart RN Advance Directive Patient has Advance Directive *Q : Yes, Advance Directive not with the patient Advance Directive Type : Living will Copy Advance Directive Verified/on Chart : No Patricia Stuart RN - 05/30/2020 17:19 EST Anesthesia/Transfusion History Family History of Anesthesia Reaction : Prior transfusion without reaction Blood Transfusion Acceptable to Patient : Yes Transfusion History : Prior anesthesia without reaction Family History of Anesthesia Reaction : None Patricia Stuart RN - 05/30/2020 17:19 EST Functional Assessment Living Situation : Home Current Home Treatments : None Patricia Stuart RN - 05/30/2020 17:19 EST General Info Preferred Name : alvarez Arrived From : Home Mode of Arrival on Unit : Wheelchair Legal Guardian : No Support Person/Pt Rep Name : Laci Burrell Support Person/Pt Rep Contact Information : [phone] Want Family/Rep/Phys Notified of Admit : No Emergency Contact #1 : Laci Burrell Emergency Contact #1 Emergency Contact #1 Relationship : Emergency Contact #2 : none Emergency Contact #2 Phone Number : none Emergency Contact #2 Relationship : none Primary Language : Afghan Preferred Communication Mode : Verbal Communication Barrier : None Commercial Lending Relationship Manager Needed : No Patricia Stuart RN - 05/30/2020 17:19 EST Fall Risk Scales ABCs Fall Injury Risk Identification : None YOUNG Hx Falls Immediate/Within 3 Months : No Young Secondary Diagnosis : Yes YOUNG Use of Ambulatory Aid : Crutches/Cane/Walker YOUNG IV Therapy or IV Access : Yes Young Gait/Transferring : Weak Young Mental Status : Oriented to own ability Young Fall Risk Score : 60 YOUNG Fall Scale Risk Level : 46 or > High Risk [place] Fall Interventions : Adequate lighting, Assistive devices within reach, Bed in low position, Call device within reach, Fall prevention handout/education per facility policy, Frequent orientation to call device, Frequent orientation to surroundings, Hourly comfort/safety rounds, Non-slip footwear, Personal items within reach, Reinforced to call for assistance before getting out of bed, Room free of clutter/spills, Upper side-rails up, Wheels locked, Wires/Cords secured Fall Moderate to High Risk Interventions : Transport methods appropriate to patient Fall Risk Scale Calc Temp : 0 Patricia Stuart RN - 05/30/2020 17:19 EST Health Histories Smoking Status : Never (less than 100 in lifetime; none in last 30 days) Smokeless Tobacco Status : Never Implant/Device Type, Mold Press Operator and Model : implanted port a cath on right upper subclavian Patricia Stuart RN - 05/30/2020 17:19 EST Social History (As Of: 05/30/2020 17:29:23 EST) Tobacco: Never (less than 100 in lifetime) Smoking Status. Never Smokeless Tobacco Status. (Last Updated: 12/18/2019 12:01:31 EDT by ANTONIO MCDONALD, RN) Alcohol: Alcohol Use History No. (Last Updated: 12/18/2019 12:01:37 EDT by ANTONIO MCDONALD, RN) Substance Abuse: Drug Use Hx: No. Use in Last 12 Months: No. (Last Updated: 12/18/2019 12:01:43 EDT by ANTONIO MCDONALD, RN) Home/Environment: Lives with Spouse. Home equipment: Respiratory treatments, Walker/Cane. (Last Updated: 12/18/2019 12:02:00 EDT by ANTONIO MCDONALD, RN) Height and Weight, Clinical Dosing Height Source : Measured Height Entry Format : [place] Height, Feet : 0 ft(Converted to: 0 cm, 0 Inch) Height, Inches : 63 Inch(Converted to: 5 ft 3 Inch, 160.02 cm) Clinical Height : 160.02 cm Weight Source : Standing scale Weight Entry Format : [place] Clinical Dosing Weight : 73.64 kg Weight, Pounds : 162 lb Body Surface Area (BSA) : 1.77 m2 Body Mass Index : 28.8 kg/m2 (HI) [place] Body Weight : 52 kg Patricia Stuart RN - 05/30/2020 17:19 EST Infectious Disease History Has the patient ever been tested for COVID-19? : Yes, Patient stated results pending Where was the COVID-19 Testing completed? : [facility] Date of COVID-19 test known? : Yes Date of COVID-19 Test : 05/26/2020 EST Does patient have symptoms of COVID-19? : No COVID19 Screening : No Experiencing Infectious Disease Symptoms : No symptoms Physical contact outside [place] in the last 30 days : No Infectious Disease History : Chicken pox/Shingles, Measles, MRSA, Mumps Tuberculosis Symptoms : None Patricia Stuart RN - 05/30/2020 17:19 EST Influenza Vaccine Asmt, Adult Previous Vaccines from Immunization Schedule : No qualifying data available. Influenza Immunization, Current Season : Yes Patricia Stuart RN - 05/30/2020 17:19 EST Pneumococcal Vaccine Previous Vaccines from Immunization Schedule : No qualifying data available. Pneumonia Immunization Received : Yes Patricia Stuart RN - 05/30/2020 17:19 EST Order Details Patient Needs Meds Crushed/Liquid : No Patricia Stuart RN - 05/30/2020 17:19 EST Nutrition History Adaptive Feeding Equipment : Regular, Other: needs gi soft no bottom teeth Oral Medication Administration : By mouth Eating Poorly Due to Decreased Appetite : No Unplanned Weight Loss in Past 3-6 Months : No Malnutrition Screening Tool Total(mal) : 0 Malnutrition Screening Tool Risk Level : Patient not at risk Patricia Stuart RN - 05/30/2020 17:19 EST [place] Suicide Severity Rating Scale (C-SSRS) CSSRS Past Month Wish to be : No CSSRS Past Month Suicidal Thoughts : No CSSRS Lifetime Suicide Behavior : No Suicide Severity Rating Score : 0 Suicide Severity Rating : No Additional Care Required at this time Patricia Stuart RN - 05/30/2020 17:19 EST Psychosocial History Chronic/Terminal Illness w/Freq Visits : Yes Do You Have a History of the Following? : Patient denies history Currently in Unsafe Situation : No Patricia Stuart RN - 05/30/2020 17:19 EST Sleep Apnea Risk Assmt BiPAP/CPAP Ordered for Home Use : No Hx of Obstructive Sleep Apnea Diagnosis : Yes Age over 50 Years Old : Yes Gender Male : No Patricia Stuart RN - 05/30/2020 17:19 EST Valuables and Belongings Valuables and Belongings : Clothing, Personal items Clothing : Common streetwear Clothing Disposition : Bedside Personal Items : Cell phone Personal Items Disposition : Bedside Patricia Stuart RN - 05/30/2020 17:19 EST Electronically signed by Renay Ribera Conversion Weatherization And Housing Inspector Cerner at 11/05/2022 6:07 PM CDT documented in this encounter Plan of Treatment Not on file documented as of this encounter Visit Diagnoses Not on filedocumented in this encounter
--- OUTSIDE RECORDS SUMMARY | 2025-02-23 12:33 | XMS_ITS | Encounter Summary ---
Author Organization [employer] ([place], [place], [place], [place]) Address [address] [place] [address] Care Team Providers Care System Operation Superintendent Name Role Phone Unavailable Primary Care Provider Unavailabl e Encounter Details Date Type Department Care Team (Late st Contact Info) Description 12/24/2019 Transcribed Document [facility] [place] [address] [place] [address] ProviderNuha MD [address] [place] [address] Social History Tobacco Use Types Packs/Day Years Used Date Smoking Tobacco: Never Assessed Comments Unknown Sex and Gender Information Value Date Recorded Sex Assigned at Not on file Legal Sex Female 2:42 PM CDT Gender Identity Not on file Sexual Orientation Not on file documented as of this encounter Miscellaneous Notes * [employer]ner Conversion Note - Historical ProviderMD - 12/24/2019 6:00 AM CDT Pain Assessment Entered On: 12/24/2019 5:54 EDT Performed On: 12/24/2019 6:53 EDT by Kavita Burrell Lpn Intervention Information: acetaminophen Performed by Kavita Burrell Lpn on 12/24/2019 05:53:00 EDT acetaminophen,1000mg Oral Pain Assessment Pain Assessment : Follow-up assessment Pain Scale Goal : 3 Pain Scale Used : 0-10 Scale Kavita Burrell Lpn - 12/24/2019 5:54 EDT Pain Scale Intensity : 2 Kavita Burrell Lpn - 12/24/2019 5:54 EDT Image 4 - Images currently included in the form version of this document have not been included in the text rendition version of the form. documented in this encounter Plan of Treatment Not on file documented as of this encounter Visit Diagnoses Not on filedocumented in this encounter
--- OUTSIDE RECORDS SUMMARY | 2025-02-23 12:33 | XMS_ITS | Encounter Summary ---
Author Organization [employer] ([place], [place], [place], [place]) Address [address] [place] [address] Care Team Providers Care Electricity Trader Name Role Phone Unavailable Primary Care Provider Unavailabl e Encounter Details Date Type Department Care Team (Late st Contact Info) Description 05/30/2020 Transcribed Document [facility] [place] [facility] [place] [address] ProviderNuha MD [address] [place] [address] Social History Tobacco Use Types Packs/Day Years Used Date Smoking Tobacco: Never Assessed Comments Unknown Sex and Gender Information Value Date Recorded Sex Assigned at Not on file Legal Sex Female 2:42 PM CDT Gender Identity Not on file Sexual Orientation Not on file documented as of this encounter Miscellaneous Notes * Cerner Conversion Note - Nuha ProviderMD - 05/30/2020 1:48 PM BASS MECHANISM MAKER [facility] Main OR IntraOp Summary Primary Physician: BHUPENDRA MARISCAL MD-PRO Finalized Date/Time: 05/31/20 12:45:08 Pt. Name: SALIMA KRAMER/Sex: 1950 Female Med Rec #: [id number] Physician: BHUPENDRA MARISCAL MD-PRO Financial #: [id number] Pt. Type: I Room/Bed: [facility]/ Admit/Disch: 05/30/20 06:50:00 - Institution: [facility] IntraOp Case Attendance Entry 1 Entry 2 Entry 3 Case Attendee BHUPENDRA MARISCAL MD-PRO KAMI AL, HELEN AGUAYO MD-ANS Role Performed Surgeon/Proceduralist, CROZER/Nurse Owner Operator Anesthesiologist of First Record Time In 05/30/20 13:31:00 05/30/20 13:31:00 05/30/20 13:31:00 Time Out 05/30/20 14:37:00 05/30/20 13:49:00 05/30/20 14:37:00 Procedure Ileostomy Closure Ileostomy Closure Ileostomy Closure Other Attendee Superficial Wound Closed By: Last Modified By: Eber Moise, Eber Pate, Eber Pate RN 05/30/20 14:40:01 05/30/20 14:40:01 05/30/20 14:40:01 Entry 4 Entry 5 Entry 6 Case Attendee Tati Caldwell Rn Harover, Michael, MARLO ENGLE Role Performed Social Work Program Coordinator, First Social Work Program Coordinator, First Physician hearing and speech assistant Time In 05/30/20 13:31:00 05/30/20 13:31:00 05/30/20 13:31:00 Time Out 05/30/20 14:00:00 05/30/20 14:37:00 05/30/20 14:37:00 Procedure Ileostomy Closure Ileostomy Closure Ileostomy Closure Other Attendee Superficial Wound Closed By: Last Modified By: Eber Moise RN Harover, Michael, Eber Pate RN 05/30/20 14:40:01 05/30/20 14:40:01 05/30/20 14:40:01 Entry 7 Entry 8 Entry 9 Case Attendee BHUPENDRA MICHEL, OG ANNA WILLS, SANDRA R. APRN-ANS Role Performed Scrub, First CROZER/Nurse Owner Operator Scrub, Second Time In 05/30/20 13:31:00 05/30/20 13:49:00 05/30/20 14:07:00 Time Out 05/30/20 14:08:00 05/30/20 14:37:00 05/30/20 14:37:00 Procedure Ileostomy Closure Ileostomy Closure Ileostomy Closure Other Attendee LUNCH RELIEF Superficial Wound Closed By: Last Modified By: Eber Moise, Eber Pate, Eber Pate RN 05/30/20 14:40:01 05/30/20 14:40:01 05/30/20 14:40:01 [facility] IntraOp Case Attendance Audit 05/30/20 14:40:01 [place] Operator: ALEC Modifier: [id number] <+> Time Out 1 <*> Procedure Ileostomy Closure 2 <*> Procedure Ileostomy Closure 3 <+> Time Out 3 <*> Procedure Ileostomy Closure 4 <*> Procedure Ileostomy Closure 5 <+> Time Out 5 <*> Procedure Ileostomy Closure 6 <+> Time Out 6 <*> Procedure Ileostomy Closure 7 <*> Procedure Ileostomy Closure 8 <+> Time Out 8 <*> Procedure Ileostomy Closure 9 <+> Time Out 9 <*> Procedure Ileostomy Closure 05/30/20 14:08:17 [place] Operator: ALEC Modifier: ALEC 7 <+> Time Out 7 <*> Procedure Ileostomy Closure 05/30/20 14:08:01 [place] Operator: ALEC Modifier: ALEC <+> 9 Case Attendee <+> 9 Role Performed <+> 9 Time In <+> 9 Procedure <+> 9 Other Attendee 05/30/20 14:01:02 [place] Operator: ALEC Modifier: ALEC 1 <*> Procedure Ileostomy Closure 2 <+> Time In 2 <*> Procedure Ileostomy Closure 3 <+> Time In 3 <*> Procedure Ileostomy Closure 4 <+> Time In 4 <+> Time Out 4 <*> Procedure Ileostomy Closure 5 <+> Time In 5 <*> Procedure Ileostomy Closure 6 <+> Time In 6 <*> Procedure Ileostomy Closure 7 <+> Time In 7 <*> Procedure Ileostomy Closure 8 <*> Procedure Ileostomy Closure 05/30/20 13:56:17 [place] Operator: ALEC Modifier: ALEC <+> 1 Procedure <+> 2 Case Attendee <+> 2 Role Performed <+> 2 Time Out <+> 2 Procedure <+> 3 Case Attendee <+> 3 Role Performed <+> 3 Procedure <+> 4 Case Attendee <+> 4 Role Performed <+> 4 Procedure <+> 5 Case Attendee <+> 5 Role Performed <+> 5 Procedure <+> 6 Case Attendee <+> 6 Role Performed <+> 6 Procedure <+> 7 Case Attendee <+> 7 Role Performed <+> 7 Procedure <+> 8 Case Attendee <+> 8 Role Performed <+> 8 Time In <+> 8 Procedure [facility] IntraOp Case Times Entry 1 Patient In Room Time 05/30/20 13:31:00 Out Room Time 05/30/20 14:37:00 Anesthesia Start Time 05/30/20 13:47:00 Stop Time 05/30/20 14:37:00 Surgery / Procedure Times Start Time 05/30/20 13:48:00 Stop Time 05/30/20 14:30:00 Last Modified By: Eber Moise, PABLITO 05/30/20 14:40:00 [facility] IntraOp Case Times Audit 05/30/20 14:40:00 [place] Operator: GWENDOLYNPARKER Modifier: [id number] <+> 1 Out Room Time <+> 1 Stop Time 05/30/20 14:31:12 [place] Operator: VINNIEENDOLYBECKIARKER Modifier: GWENDOLYNPARKER <+> 1 Stop Time [facility] IntraOp Cautery Entry 1 ESU Identification Cautery Type Monopolar ESU ID Number [id number] ID Type Hospital Number Cautery Settings Cut Setting 30 Coag Setting 30 ESU Grounding Pad Last Modified By: Tati Caldwell Rn 05/30/20 14:00:45 [facility] IntraOp Communication Entry 1 Entry 2 Communication To Family/Significant other Family/Significant other Comment START CLOSING Communication By Tati Caldwell Rn Harover, Michael, RN Date and Time 05/30/20 13:50:00 05/30/20 14:29:00 Last Modified By: Tati Caldwell Rn Parker, Gwendolyn, Rn 05/30/20 14:17:03 05/30/20 14:30:08 [facility] IntraOp Communication Audit 05/30/20 14:30:08 [place] Operator: VINNIEENDOLYNPARKER Modifier: GWENDOLYNPARKER <+> 2 Communication By <+> 2 Date and Time <+> 2 Communication To <+> 2 Comment 05/30/20 14:17:03 [place] Operator: VINNIEENDOLYNPARKER Modifier: GWENDOLYNPARKER 1 <*> Communication By Eber Moise, PABLITO 05/30/20 14:15:59 [place] Operator: KAYCEEOLYBECKIARKYOBANI Modifier: GWENDOLYNPARKER <+> 1 Communication By [facility] IntraOp Counts Verification Entry 1 Procedure Ileostomy Closure Count Info Count Type Sponge, Sharps, Instrument, Miscellaneous Counts Verification Baseline/pre-procedure Sequence Count Results Not Applicable Counts Performed By Count Performed By BHUPENDRA MICHEL CST (Scrub) Count Performed By Eber Moise, RN (RN) Last Modified By: Tati Caldwell Rn 05/30/20 14:02:44 [facility] IntraOp Counts Final Entry 1 Procedure Ileostomy Closure Final Count Info Count Type Sponge, Sharps, Instrument, Miscellaneous Counts Verification Skin Closure/end of Sequence procedure Counts Performed By Count Performed By KLAUS TODD (Scrub) Count Performed By Eber Moise RN (RN) Last Modified By: Tati Caldwell Rn 05/30/20 14:24:16 [facility] IntraOp Cultures and Spec Summary Entry 1 Cultrures and Specimens Specimen Ordered: Yes Test(s) Routine/Path-Lab Requested/Final Disposition Last Modified By: Tati Caldwell Rn 05/30/20 14:02:49 [facility] IntraOp Delays Entry 1 Delay Reason Anesthesia late Duration 31 Minute(s) Comment WAITING FOR PRE-OP TO FINISH AND FOR ANESTHESIA TO PERFORM TAP BLOCK Last Modified By: Tati Caldwell Rn 05/30/20 14:03:23 [facility] IntraOp Departure from OR Entry 1 Integumentary Assessment Integumentary WDL Assessment WDL Transfer/Handoff Transfer to PACU Phase I Handoff Method Bedside/Face to face, Phone call, Online nursing summary Post-op Transport Stretcher/rney Via Patient Transport OG PURVIS, Accompanied by WILFRED LAMA KAREN A. Last Modified By: Tati Caldwell Rn 05/30/20 14:03:51 [facility] IntraOp Dressing and Packing Entry 1 Type Dressing Location op site Wound Dressing Item Occlusive dressing Applied By BHUPENDRA MARISCAL MD-PRO Last Modified By: Eber Moise, PABLITO 05/30/20 14:40:43 [facility] IntraOp Fire Risk Assessment Entry 1 Fire Info Surgical Site or 0- No Incision Above the Xyphoid Open O2 Source 0- No (Mask or Cannula) Available Ignition 1- Yes (ESU, Laser, Light Source) Fire Risk 1 Assessment Score Fire Score Fire Risk Yes Assessment Complete Fire Risk Tati Caldwell Rn Assessment Verified By Fire Risk 05/30/20 13:40:00 Assessment Verified Date/Time Fire Risk Standard Fire Yes Safety Precautions Followed Last Modified By: Tati Caldwell Rn 05/30/20 14:04:22 [facility] IntraOp General Case Application Manager 1 Case Information OR OR 03 [facility] Case Level 1 Room Verified Yes Wound Class II - Clean-Contaminated Specialty SN General Anesthesia Type General ASA Class 3 Diagnosis Preop Diagnosis ILEOSTOMY IN PLACE Postop Same As Preop No Postop Diagnosis SEE MD POST OP NOTES Last Modified By: Tati Caldwell Rn 05/30/20 14:19:10 [facility] IntraOp General Case Data Audit 05/30/20 14:19:10 [place] Operator: STONEARKYOBANI Modifier: STONEARKER <+> 1 Preop Diagnosis [facility] IntraOp Intraoperative Assessment Entry 1 Handoff Method Online nursing summary Valid History / Yes Physical in Chart Preoperative Yes Checklist Reviewed/Evaluated Allergies Reviewed Yes Patient is Latex No Sensitive Isolation Not applicable Precautions Noted Level of WDL Consciousness (WDL = Alert, Oriented to Person, Place, and Time) Skin Assessment No Verified Present Upon IVs Arrival to OR Last Modified By: Tati Caldwell Rn 05/30/20 14:05:08 [facility] IntraOp Intraoperative Equipment Entry 1 Type Equipment Equipment Equipment Michaela Suction System ID Number [id number] Intraop Monitoring Electrocardiogram Three lead placement (ECG) Electrode Placement Blood Pressure Non-Invasive BP Device Source Blood Pressure Arm, left upper Location Pulse Oximeter Hand, right Probe Site Antiembolic Devices Antiembolic Devices Sequential compression device, knee high Antiembolic Device Bilateral Location Antiembolic Device [id number] ID Number Scopes Photo/Video Documentation Photo No Video No Last Modified By: Tati Caldwell Rn 05/30/20 14:10:07 [facility] IntraOp Medication Admin Entry 1 Medication/Irrigant Normal Saline 0.9% 1000ml irrigation - [id number] Route of IRRIGATION Administration Dose Unit of Measure ml Administered By BHUPENDRA MARISCAL MD-PRO Procedure Irrigation Last Modified By: Tati Caldwell Rn 05/30/20 14:10:30 General Comments: PT RECIEVED TAP BLOCK IN PRE-OP [facility] IntraOp Patient Positioning Entry 1 Procedure Ileostomy Closure Body Position Supine Left Arm Position Secured on padded arm board Right Arm Position Secured on padded arm board Left Leg Position Uncrossed, parallel Right Leg Position Uncrossed, parallel Feet Uncrossed Yes Pressure Points Yes Checked Positioning Devices Head Rest, Pad, Elbow, Safety Strap, Thighs Positioned By BHUPENDRA MARISCAL MD-PRO, Tati Caldwell, Rn, MARLO HARDIN, OG PURVIS, AUTOMATIC TYPEWRITER INSPECTOR-ANS Position Verified Positioning Yes Verified by Anesthesia Positioning Yes Verified by Surgeon Last Modified By: Tati Caldwell Rn 05/30/20 14:11:23 [facility] IntraOp Sign In Entry 1 Patient, Site, Yes Procedure Identified Surgical Consent Yes Confirmed Relevant Surgical Yes Documents Available Surgical Site N/A Marked by person performing procedure Anesthesia Machine Yes Check Completed Medication Checks Yes Completed Allergies Yes Airway Difficult Yes Airway/Aspiration Risk Difficult Yes Airway/Aspiration Intervention Equipment Available Blood Loss Risk Yes Blood Loss No Intervention Equipment Prepared and Ready Blood Identifiers Not applicable Verified Per Policy Hypothermia Risk Yes Warming Measures Yes Taken Last Modified By: Tati Caldwell Rn 05/30/20 14:12:24 [facility] IntraOp Sign Out Entry 1 RN Confirmation Surgical Yes Procedure(s) Identified Instrument, Sponge Yes and Sharps Counts Correct/Documented Equipment Problems N/A Documented Specimen Labeled N/A Correctly Urinary Catheter N/A Documented in IView Decker Patient Yes Recovery Concerns Reviewed with Anesthesia Provider, Surgeon and RN Decker Patient Yes Management Concerns Reviewed with Anesthesia Provider, Surgeon and RN Safety Checklist Yes Elements Complete? RN Sign Out Eber Moise RN Signature RN Sign Out 05/30/20 14:41:00 Signature Date/Time Plan of Care Outcome - Fire Risk OUTCOME STATEMENT: Goal met Patient is free from injury related to surgical fire Plan of Care Outcome - Pt Positioning OUTCOME STATEMENT: Goal met Absence of signs and symptoms of positioning injury. Plan of Care Outcome - Skin Prep OUTCOME STATEMENT: Goal met Intraoperative care is consistent with measures to prevent infection Plan of Care Outcome - Xray/Images OUTCOME STATEMENT: N/A Absence of observable signs or symptoms of radiation injury Plan of Care Outcome - Counts OUTCOME STATEMENT: Goal met Absence of signs and symptoms of injury related to extraneous objects Last Modified By: Eber Moise RN 05/30/20 14:41:42 [facility] IntraOp Skin Prep Entry 1 Procedure Ileostomy Closure Prescribed Yes Pre-Surgical Prep Completed Prep Area STOMA SITE AND ABDOMEN FROM XYPHOID TO PUBIS Intraop Prep Integumentary WDL Assessment WDL Prep Agents Betadine solution, Chloraprep Prep by Tati Caldwell Rn Hair Removal Methods No hair removal performed Last Modified By: Tati Caldwell Rn 05/30/20 14:12:50 [facility] IntraOp Surgical Procedures Entry 1 Procedure Ileostomy Closure Additional (ILEOSTOMY TAKEDOWN) Procedure Description Primary Procedure Yes Primary Surgeon BHUPENDRA MARISCAL MD-PRO Start 05/30/20 13:48:00 Stop 05/30/20 14:30:00 Anesthesia Type General Specialty SN General Wound Class II - Clean-Contaminated Last Modified By: Eber Moise RN 05/30/20 14:40:45 [facility] IntraOp Surgical Procedures Audit 05/30/20 14:40:45 [place] Operator: STONEARKYOBANI Modifier: [id number] <+> 1 Stop [facility] IntraOP Time Out Entry 1 Procedure to be Ileostomy Closure Performed Time Out Time Out Pause Time 05/30/20 13:47:00 All activity Yes suspended (unless life threatening emergency) Team Verbally Correct patient Confirms Information identity, Correct side and site are marked, Consent form is present and accurate, Agreement on the procedure to be done, Correct patient position, Relevant images/results properly labeled/appropriately displayed, Confirm antibiotics have been administered, Confirm the skin prep has dried, Confirm prosthesis/implant/devic e is present, Performed in location of procedure after prepped/draped Antibiotic Yes Prophylaxis Administered Or In Progress Within the Last 60 Minutes Beta Kurt N/A Administered Venous Yes Thromboembolism Prophylaxis Required Anticipated Critical Events Surgeon None expected Anesthesia Provider None expected Nursing Assures Sterility of instruments Essential Imaging N/A Labeled and Displayed Last Modified By: Tati Caldwell Rn 05/30/20 14:13:27 Case Comments <None> Finalized By: ERUM ALDANA Document Signatures Signed By: Eber Moise RN 05/30/20 14:41 ERUM ALDANA 05/31/20 12:45 Unfinalized History Date/Time Username Reason for Unfinalizing Freetext Reason for Unfinalizing 05/31/20 12:44 [id number] Correct Billing Electronically signed by Bacilio [facility] Conversion Supervisor Treating And Pumping Cerner at 11/05/2022 5:49 PM CDT documented in this encounter Plan of Treatment Not on file documented as of this encounter Visit Diagnoses Not on filedocumented in this encounter
--- OUTSIDE RECORDS SUMMARY | 2025-02-23 12:33 | XMS_ITS | Encounter Summary ---
Author Organization [employer] ([place], [place], [place], [place]) Address [address] [place] [address] Care Team Providers Care Javascript Web Developer Name Role Phone Unavailable Primary Care Provider Unavailabl e Encounter Details Date Type Department Care Team (Late st Contact Info) Description 05/30/2020 Transcribed Document [facility] [place] [address] [place] [address] ProviderNuha MD [address] [place] [address] Social History Tobacco Use Types [...] - Nuha ProviderMD - 05/30/2020 1:48 PM GRAPHIC ILLUSTRATOR [facility] Main OR PACU Summary Primary Physician: BHUPENDRA MARISCAL MD-PRO Finalized Date/Time: 05/30/20 16:58:19 Pt. Name: NATE KRAMER/Sex: 1950 Female Med Rec #: [id number] Physician: BHUPENDRA MARISCAL MD-PRO Financial #: [id number] Pt. Type: I Room/Bed: ASA/3 Admit/Disch: 05/30/20 06:50:00 - Institution: [facility] Main OR PACU I Case Times Entry 1 In PACU I 05/30/20 14:40:00 Ready for PACU 05/30/20 15:20:00 Discharge Discharge from PACU 05/30/20 16:55:00 I Last Modified By: Cristina Kelly, Rn 05/30/20 16:57:14 Finalized By: Cristina Kelly Rn Document Signatures Signed By: Cristina Kelly Rn 05/30/20 16:58 documented in this encounter Plan of Treatment Not on file documented as of this encounter Visit Diagnoses Not on filedocumented in this encounter
--- OUTSIDE RECORDS SUMMARY | 2025-02-23 12:33 | XMS_ITS | Encounter Summary ---
Author Organization [employer] ([place], [place], [place], [place]) Address [address] [place] [address] Care Team Providers Care Industrial Ecology Technician Name Role Phone Unavailable Primary Care Provider Unavailabl e Encounter Details Date Type Department Care Team (Late st Contact Info) Description 05/27/2020 Transcribed Document [facility] [place] Medicine [address] [place] [address] ProviderNuha MD [address] [place] [address] Social History Tobacco Use Types Packs/Day Years Used Date Smoking Tobacco: Never Assessed Comments Unknown Sex and Gender Information Value Date Recorded Sex Assigned at Not on file Legal Sex Female 2:42 PM CDT Gender Identity Not on file Sexual Orientation Not on file documented as of this encounter Miscellaneous Notes * Cerner Conversion Note - Historical ProviderMD - 05/27/2020 12:00 PM MEDICAL OFFICE MANAGER Pain Assessment Entered On: 05/27/2020 14:13 EST Performed On: 05/27/2020 13:09 EST by MELODY YOST RN Intervention Information: oxyCODONE Performed by MELODY YOST RN on 05/27/2020 12:09:00 EST oxyCODONE,10mg Oral Pain Assessment Pain Assessment : Follow-up assessment Pain Scale Goal : 3 Pain Scale Used : 0-10 Scale Location : Abdominal, Legs, bilateral Onset : Chronic Pain Intervention, Drug : Medicated Pain Intervention, Non-Drug : Positioning Pain Improved by Intervention : Yes MELODY YOST RN - 05/27/2020 14:13 EST Pain Scale Intensity : 3 MELODY YOST RN - 05/27/2020 14:13 EST Image 4 - Images currently included in the form version of this document have not been included in the text rendition version of the form. documented in this encounter Plan of Treatment Not on file documented as of this encounter Visit Diagnoses Not on filedocumented in this encounter
--- OUTSIDE RECORDS SUMMARY | 2025-02-23 12:33 | XMS_ITS | Encounter Summary ---
Author Organization [email or web address] ([place], [place], [place], [place]) Address [address] [place] [address] Care Team Providers Care Shirt Folding Machine Operator Name Role Phone Unavailable Primary Care Provider Unavailabl e Encounter Details Date Type Department Care Team (Late st Contact Info) Description 05/30/2020 Transcribed Document [facility] [place] Medicine [facility] [place] [address] ProviderNuha MD [facility] [place] [address] Social History Tobacco Use Types Packs/Day Years Used Date Smoking Tobacco: Never Assessed Comments Unknown Sex and Gender Information Value Date Recorded Sex Assigned at Not on file Legal Sex Female 2:42 PM CDT Gender Identity Not on file Sexual Orientation Not on file documented as of this encounter Miscellaneous Notes * Cerner Conversion Note - Nuha ProviderMD - 05/30/2020 10:31 PM MOBILE MARKETING MANAGER Patient: NATE KRAMER Age: 69 years Sex: Female : 1950 Associated Diagnoses: None Author: ERIK OWENS MD-INT Basic Information ADMISSION HISTORY AND PHYSICAL DATE OF ADMISSION: Admit Date 05/30/2020 06:50 PRIMARY CARE PROVIDER: Primary Care Provider THAD ROSALES MD-[facility] PRIMARY CARE PHYSICIAN: Dr. Thad Rosales. COLORECTAL SURGEON: Dr. Marilin Decker, ONCOLOGIST: Dr. Fernandez Jordan. Chief Complaint 1. Abdominal pain 2. 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 Endoscopic evaluation of her anastomosis as well as Gastrografin enema revealed healthy and well healed anastomosis. Patient had an Ileostomy and she came back for follow u with Dr. Decker who scheduled her for ileostomy reversal Patient underwent Ileostomy reversal on 05/30/2020 with no immediate complication Patient's Oncologist is Dr. Fernandez Jordan Pateinailyn with history of hyperkalemia evaluated by Nephrology in the past Review of Systems Constitutional: No fever, No chills, No weakness. Eye: No recent visual problem, No discharge. Ear/Nose/Mouth/Throat: No decreased hearing, No nasal congestion, No sore throat. Respiratory: No shortness of breath, No cough, No sputum production, No wheezing. Cardiovascular: No chest pain, No peripheral edema. Gastrointestinal: Nausea, Abdominal pain, No vomiting, No diarrhea, No heartburn, No hematemesis. Genitourinary: No dysuria, No hematuria. Hematology/Lymphatics: No bruising tendency. Endocrine: No excessive thirst, No polyuria, No cold intolerance. Immunologic: Not immunocompromised, No recurrent fevers. Musculoskeletal: No neck pain, No muscle pain. Integumentary: No rash, No pruritus, No dryness. Neurologic: No numbness, No tingling. Psychiatric: No anxiety, No depression, Not suicidal. VASCULAR: No claudication Health Status Allergies: Allergic Reactions (Selected) Severity Not Documented Meperidine- Hypotension. Sulfa drugs- Hives., Allergies (2) Active Reaction meperidine Hypotension sulfa drugs Hives Current medications: (Selected) Inpatient Medications Ordered Fioricet: 1 Tab, Oral, Q4H, PRN: Headache Magic Mouthwash: 5 mL, Swish and Spit, Q6H, PRN: Mouth Sore Pain Mucinex: 1,200 mg, Oral, Q12H, PRN: Cough Proventil HFA: 1 Puff, Inhalation, Q4H, PRN: Wheezing Wellbutrin XL: 150 mg, Oral, Daily acetaminophen: 1,000 mg, Oral, Q6H cloNIDine 50 mcg + dexAMETHasone 4 mg + bupivacaine 0.25% injectable solution 28.35 mL + EPINEPHrin...: 50 mcg, 0.5 mL, 1800 mL/Hr, Nerve Root Block, 1-Time cloNIDine 50 mcg + dexAMETHasone 4 mg + bupivacaine 0.25% injectable solution 28.35 mL + EPINEPHrin...: 50 mcg, 0.5 mL, 1800 mL/Hr, Nerve Root Block, 1-Time diazePAM: 5 mg, Oral, Q6H, PRN: Other (See Comment) gabapentin: 600 mg, Oral, TID heparin: 5,000 Units, SubCutaneous, Q8H methenamine hippurate 1 g oral tablet: 0.5 Gram, 0.5 Tab, Oral, BID midazolam: 1 mg, IV Push, Q10Min, PRN: Anxiety montelukast: 10 mg, Oral, Daily morphine: 2 mg, IV Push, Q2H, PRN: Pain (Severe 7-10) ondansetron: 4 mg, IV Push, Q6H, PRN: Nausea/Vomiting oxyCODONE: 10 mg, Oral, Q6H, PRN: Breakthrough Pain pantoprazole: 40 mg, Oral, Daily rOPINIRole: 0.25 mg, Oral, BID Documented Medications Documented Fioricet: Oral, Q4H, 0 Refill(s) Magic Mouthwash: 5 mL, Swish and Spit, [...] transdermal film, extended release: 1 Patch, Topical, [id number], 0 Refill(s) ferrous sulfate 325 mg (65 [...] tablet: 1 Tab, Oral, BID, 0 Refill(s), Medications (19) Active Scheduled: (10) acetaminophen 500 mg tab 1,000 mg 2 Tab, Oral, Q6H buPROPion XL 150 mg tab 150 mg 1 Tab, Oral, Daily cloNIDine 50 mcg + dexAMETHasone 4 mg + bupivacaine 0.25% 28.35 mL + EPINEPHrine 0.15 mg 50 mcg 0.5 mL, Nerve Root Block, 1-Time cloNIDine 50 mcg + dexAMETHasone 4 mg + bupivacaine 0.25% 28.35 mL + EPINEPHrine 0.15 mg 50 mcg 0.5 mL, Nerve Root Block, 1-Time gabapentin 300 mg cap 600 mg 2 Cap, Oral, TID heparin 5,000 units/1 mL inj 5,000 Units 1 mL, SubCutaneous, Q8H methenamine hippurate 1 g tab 0.5 Gram 0.5 Tab, Oral, BID montelukast 10 mg tab 10 mg 1 Tab, Oral, Daily pantoprazole EC 40 mg tab 40 mg 1 Tab, Oral, Daily rOPINIRole 0.25 mg tab 0.25 mg 1 Tab, Oral, BID Continuous: (0) PRN: (9) acetamin/butalbital/caffeine tab 1 Tab, Oral, Q4H albuterol 90 mcg/1 puff inh 6.7 g 1 Puff, Inhalation, Q4H diazepam 5 mg tab 5 mg 1 Tab, Oral, Q6H guaiFENesin 600 mg ER tab 1,200 mg 2 Tab, Oral, Q12H Magic Mouthwash 5 mL, Swish and Spit, Q6H midazolam 1 mg/1 mL inj 2 mL 1 mg 1 mL, IV Push, Q10Min morphine 2 mg/1 ml inj 2 mg 1 mL, IV Push, Q2H ondansetron 4 mg/2 mL inj 4 mg 2 mL, IV Push, Q6H oxyCODONE 5 mg tab 10 mg 2 Tab, Oral, Q6H Problem list: Medical Allergic rhinitis / SNOMED CT 824705975 / Confirmed Asthma / SNOMED CT 940090535 / Confirmed Back pain //multiple fractures / SNOMED CT 818041548 / Confirmed BBB (bundle branch block)//right / SNOMED CT 69704173 / Confirmed Chronic diarrhea / SNOMED CT 237809876 / Confirmed Difficulty walking//walker / SNOMED CT 4173255822 / Confirmed Dizziness / SNOMED CT 2097022442 / Confirmed Fistula//colon//bladder//vaginia / SNOMED CT 7862893290 / Confirmed Ribs, multiple fractures / SNOMED CT 3260554 / Confirmed GERD - Gastro-esophageal reflux disease / SNOMED CT 3122021671 / Confirmed History of obstructive sleep apnea / IMO 00981633 / Confirmed Hyperkalemia / SNOMED CT 14847396 / Confirmed Hypotension / SNOMED CT 320191586 / Confirmed Skin cancer / SNOMED CT 2820831097 / Confirmed Multiple myeloma / SNOMED CT 007325521 / Confirmed Restless legs syndrome / SNOMED CT 23215670 / Confirmed Sinusitis / SNOMED CT 24529454 / Confirmed Sleep apnea//no machine / SNOMED CT 007612590 / Confirmed Resolved: Cataract//extraction / SNOMED CT 823716895 Resolved: Dental disorder//bottom teeth extraction//stitches intact / SNOMED CT 6819100968 Resolved: Urinary tract infection//jul 2018 / SNOMED CT 530102757 Canceled: Back pain / SNOMED CT 9695489393 Canceled: History of obstructive sleep apnea / IMO 40267982, Active Problems (19) Allergic rhinitis Asthma Back pain //multiple fractures BBB (bundle branch block)//right Chronic diarrhea Difficulty walking//walker Dizziness Fistula//colon//bladder//vaginia GERD - Gastro-esophageal reflux disease History of obstructive sleep apnea Hyperkalemia Hypotension 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 Dental disorder//bottom teeth extraction//stitches intact (4800011495): Resolved. Urinary tract infection//jul 2018 (550871021): Resolved. Family History: No family history items have been selected or recorded., Significant for hypertension Procedure history: low anterior resection with loop [...] Tobacco Status Never . Physical Examination VS/Measurements Vitals Signs (last 24 hrs) Last Charted Minimum Maximum Temp 97.8 (MAY 30:) L 96 (MAY 30 12:08) 99.0 (MAY 30 14:40) Mon HR 72 (MAY 30:) 66 (MAY 30:15) 76 (MAY 30:08) Periph HR 78 (MAY 30 13:10) 78 (MAY 30 13:10) 78 (MAY 30 13:10) Resp Rate 18 (MAY 30:) L 13 (MAY 30 15:00) 20 (MAY 30 13:10) SBP 118 (MAY 30:) 107 (MAY 30 16:30) 130 (MAY 30 15:00) DBP 74 (MAY 30:) L 45 (MAY 30 12:08) 74 (MAY 30:) MAP 90 (MAY 30:) 76 (MAY 30:15) 90 (MAY 30 15:00) SpO2 98 (MAY 30:) 97 (MAY 30 15:05) 100 (MAY 30:08) General: Alert and oriented, No acute distress. Eye: Pupils are equal, round and reactive to light, Extraocular movements are intact, Normal conjunctiva. HENT: Ear: Within normal limits. Nose: Both nostrils, Within normal limits. Neck: Supple, Non-tender, No jugular venous distention, No lymphadenopathy, No thyromegaly. Respiratory: Breath sounds are equal, Symmetrical chest wall expansion, No chest wall tenderness. Respirations: Not tachypneic. Pattern: Regular. Breath sounds: Bilateral, No rales present, No rhonchi present, No wheezes present. Breath sounds: No rales present. Cardiovascular: S1, S2, No murmur, Non-displaced PMI. Arterial pulses: Bilateral, Posterior tibial, Dorsalis pedis, 3+. Capillary refill: Within normal limits. Gastrointestinal: Soft, Non-tender, Non-distended, Normal bowel sounds, No organomegaly. Genitourinary: No costovertebral angle tenderness. Musculoskeletal: Normal range of motion, Normal strength, No tenderness, No swelling. Integumentary: Warm. Neurologic: Alert, Oriented, Normal sensory, Normal motor function, Cranial Nerves II-XII are grossly intact. Cognition and Speech: Oriented, Speech clear and coherent. Psychiatric: Cooperative, Appropriate mood & affect. Review / Management Results review: Labs (Last four charted values) WBC 4.8 (MAY 26) HB 11.6 (MAY 30) 13.5 (MAY 26) HCT 34.8 (MAY 30) 41.5 (MAY 26) Plt 314 (MAY 26) Na L 126 (MAY 26) K C 7.4 (MAY 26) Cl 102 (MAY 26) CO2 L 20 (MAY 26) BUN H 33 (MAY 26) Cr H 1.80 (MAY 26) Glu R 98 (MAY 30) 85 (MAY 26) Ca 8.9 (MAY 26) AST 33 (MAY 26) ALT 54 (MAY 26) ALK P H 218 (MAY 26) T Bili 0.5 (MAY 26) PTN 7.7 (MAY 26) ALB 4.1 (MAY 26) . Radiology results No qualifying data available RADIOLOGIC IMAGING: REPORT TWO VIEW CHEST 05/26/2020 2:20 PM HISTORY: Precordial chest pain . COMPARISON: December 18, 2019. FINDINGS: Right IJ catheter tip terminates within the SVC. The heart is normal in size . The mediastinum is unremarkable . The lungs are well expanded and clear. There is no pneumothorax . The osseous structures demonstrate multilevel kyphoplasty. IMPRESSION: No acute cardiopulmonary process . Impression and Plan ASSESSMENT AND PLANS: - History of low anterior resection with takedown of colovaginal and colovesical fistula and ileostomy creation approximately 5 months ago. - S/P Ileostomy reversal on 05/30/[address] Marilin Decker encouraged ambulation encouraged Incentive spirometer use - Post-operative abdominal pain: placed on Acetaminophen and Protonix Morphine as needed - Chronic Kidney disease stage [address] Warner on 05/27/2020 Gentle post-operative hydration Avoid nephrotoxic medications - History of Hyperkalemia evaluated by Nephrology in December 2019 and more recently on 05/27/2020 last potassium was 5.1 - Gastrointestinal ( GI ) prophylaxis : I started the patient on Protonix - DEEP VEIN THROMBOSIS ( DVT ) prophylaxis: placed on SQ Heparin per surgery I placed the patient on sequential compression devices ( Compression Boots ) while in bed. CODE STATUS: FULL code. TIME SPENT : 46 minutes in evaluation documented in this encounter Plan of Treatment Not on file documented as of this encounter Visit Diagnoses Not on filedocumented in this encounter
--- OUTSIDE RECORDS SUMMARY | 2025-02-23 12:33 | XMS_ITS | Encounter Summary ---
Author Organization [employer] ([place], [place], [place], [place]) Address [address] [place] [address] Care Team Providers Care Ekg Technician Name Role Phone Unavailable Primary Care Provider Melody e Encounter Details Date Type Department Care Team (Late st Contact Info) Description 05/30/2020 Transcribed Document [facility] [place] [facility] [place] [address] ProviderNuha MD [address] [place] [address] Social History Tobacco Use Types Packs/Day Years Used Date Smoking Tobacco: Never Assessed Comments Unknown Sex and Gender Information Value Date Recorded Sex Assigned at Not on file Legal Sex Female 2:42 PM CDT Gender Identity Not on file Sexual Orientation Not on file documented as of this encounter Miscellaneous Notes * Cerner Conversion Note - Historical ProviderMD - 05/30/2020 2:46 PM TAX PROFESSIONAL Patient: NATE KRAMER Age: 69 Years Sex: Female : 1950 *Operation Ileostomy Closure, Anesthesia Type General HELEN PENNINGTON MD-ANS (Anesthesiologist of Record) *Preoperative Diagnosis ILEOSTOMY IN PLACE *Postoperative Diagnosis SEE MD POST OP NOTES *Surgeon(s) Primary Surgeon BHUPENDRA MARISCAL MD-PRO (Surgeon/Proceduralist, First) *Estimated Blood Loss 25mL *Findings Moderate adhesions *Specimen(s) Ileostomy trim Complications None Date of Service Date/Time of Service SN - Proc - Start Time: 05/30/20 13:48:00 (05/30/20 14:12:57) Electronically signed by [facility] Conversion Nursery Laborer Cerner at 11/05/2022 5:55 PM CDT documented in this encounter Plan of Treatment Not on file documented as of this encounter Visit Diagnoses Not on filedocumented in this encounter
--- OUTSIDE RECORDS SUMMARY | 2025-02-23 12:33 | XMS_ITS | Encounter Summary ---
Author Organization [employer] ([place], [place], [place], [place]) Address [address] [place] [address] Care Team Providers Care Pack Mule Worker Name Role Phone Unavailable Primary Care Provider Unavailabl e Encounter Details Date Type Department Care Team (Late st Contact Info) Description 05/27/2020 Transcribed Document [facility] [place] [address] [place] [address] ProviderNuha MD [address] [place] [address] Social History Tobacco Use Types Packs/Day Years Used Date Smoking Tobacco: Never Assessed Comments Unknown Sex and Gender Information Value Date Recorded Sex Assigned at Not on file Legal Sex Female 2:42 PM CDT Gender Identity Not on file Sexual Orientation Not on file documented as of this encounter Miscellaneous Notes * Cerner Conversion Note - Historical ProviderMD - 05/27/2020 2:[address] [facility] OT Charges Entered On: 05/27/2020 14:39 EST Performed On: 05/27/2020 14:39 EST by MARK GALLEGO OTR/John Quiros OT Charges Screen For Senior Contract Specialist : 1 MARK GALLEGO OTR/John - 05/27/2020 14:39 EST documented in this encounter Plan of Treatment Not on file documented as of this encounter Visit Diagnoses Not on filedocumented in this encounter
--- OUTSIDE RECORDS SUMMARY | 2025-02-23 12:33 | XMS_ITS | Encounter Summary ---
Author Organization [employer] ([place], [place], [place], [place]) Address [address] [place] [address] Care Team Providers Care Seismic Plotter Name Role Phone Unavailable Primary Care Provider Unavailabl e Encounter Details Date Type Department Care Team (Late st Contact Info) Description 05/30/2020 Transcribed Document [facility] [place] [address] [place] [address] ProviderNuha MD [address] [place] [address] Social History Tobacco Use Types Packs/Day Years Used Date Smoking Tobacco: Never Assessed Comments Unknown Sex and Gender Information Value Date Recorded Sex Assigned at Not on file Legal Sex Female 2:42 PM CDT Gender Identity Not on file Sexual Orientation Not on file documented as of this encounter Miscellaneous Notes * Cerner Conversion Note - Historical ProviderMD - 05/30/2020 2:58 PM FORGE TENDER Pain Assessment Entered On: 05/31/2020 3:19 EST Performed On: 05/31/2020 0:38 EST by Dhara Kelly RN Intervention Information: morphine Performed by Dhara Kelly RN on 05/31/2020 00:08:00 EST morphine,2mg IV Push,Right Hand,Pain (Severe 7-10) Pain Assessment Pain Assessment : Follow-up assessment Pain Scale Goal : 3 Pain Scale Used : 0-10 Scale Dhara Kelly RN - 05/31/2020 3:19 EST Pain Scale Intensity : 2 Dhara Kelly RN - 05/31/2020 3:19 EST Image 4 - Images currently included in the form version of this document have not been included in the text rendition version of the form. documented in this encounter Plan of Treatment Not on file documented as of this encounter Visit Diagnoses Not on filedocumented in this encounter
--- OUTSIDE RECORDS SUMMARY | 2025-02-23 12:33 | XMS_ITS | Encounter Summary ---
Author Organization [employer] ([place], [place], [place], [place]) Address [address] [place] [address] Care Team Providers Care Rider Ticket Worker Name Role Phone Unavailable Primary Care Provider Unavailabl e Encounter Details Date Type Department Care Team (Late st Contact Info) Description 05/27/2020 Transcribed Document [facility] [place] [facility] [place] [address] ProviderNuha MD [address] [place] [address] Social History Tobacco Use Types Packs/Day Years Used Date Smoking Tobacco: Never Assessed Comments Unknown Sex and Gender Information Value Date Recorded Sex Assigned at Not on file Legal Sex Female 2:42 PM CDT Gender Identity Not on file Sexual Orientation Not on file documented as of this encounter Miscellaneous Notes * Cerner Conversion Note - Historical ProviderMD - 05/27/2020 12:56 PM INTERVENTIONAL PAIN PHYSICIAN Nursing Discharge Summary Entered On: 05/27/2020 12:58 EST Performed On: 05/27/2020 12:56 EST by MELODY YOST house supervisor Documentation Discharge Date/Time : 05/27/2020 14:30 EST MELODY YOST RN - 05/27/2020 14:45 EST Patient Disposition, General : Discharge Discharge To : Home with ambulatory/outpatient follow-up Mode Of Departure, General Discharge : Private vehicle Accompanied By, Discharge : Spouse IV Discontinued : Yes Personal Belongings With Patient : Yes Pt's Own Supply of Medications Returned : Yes Prescriptions Given to Patient : No Medications Given to Patient : No Discharge Instructions Reviewed With, Opportunity For Questions Given : Patient Teaching Method : Explanation Teaching Evaluation : Verbalizes understanding MELODY YOST RN - 05/27/2020 12:56 EST documented in this encounter Plan of Treatment Not on file documented as of this encounter Visit Diagnoses Not on filedocumented in this encounter
--- OUTSIDE RECORDS SUMMARY | 2025-02-23 12:34 | XMS_ITS | Encounter Summary ---
Author Organization [facility] Address [address] [place] [address] Care Team Providers Care Service Superintendent Name Role Phone Jenn Rosales MD Primary Care Provider [phone] Encounter Details Date Type Department Care Team (Late st Contact Info) Description 09/14/2024 Community [facility] [address] [place] [address] Monica Black MD [address] [place] [address] Social History Tobacco Use Types Packs/Day Years Used Date Smoking Tobacco: Never Smokeless Tobacco: Never Alcohol Use Standard Drinks/Week Comments No 0 (1 standard drink = 0.6 oz pur e alcohol) PHQ-2 Answer Date Recorded Patient Health Questionnaire-2 Score 0 11/22/2022 PHQ-2A Answer Date Recorded Patient Health Questionnaire-2 Score 0 11/22/2022 Comments Unknown Sex and Gender Information Value Date Recorded Sex Assigned at Not on file Legal Sex Female 8:21 PM EDT Gender Identity Not on file Sexual Orientation Not on file documented as of this encounter Plan of Treatment Not on file documented as of this encounter Visit Diagnoses Not on filedocumented in this encounter Additional Health Concerns Assessment Noted Time A fall risk assessment has been complete d for the patient 11/22/2022 1:19 PM EDT A Body Mass Index follow-up plan has been documented for the patient 11/22/2022 2:22 PM EDT documented as of this encounter Care Teams Service Superintendent Relationship Specialty Start Date End Date Jenn Rosales MD [address] [place] [address] PCP - General 12/02/20 documented as of this encounter
--- OUTSIDE RECORDS SUMMARY | 2025-02-23 12:34 | XMS_ITS | Encounter Summary ---
Author Organization [employer] ([place], [place], [place], [place]) Address [address] [place] [address] Care Team Providers Care Parliamentary Librarian Name Role Phone Unavailable Primary Care Provider Unavailabl e Encounter Details Date Type Department Care Team (Late st Contact Info) Description 12/23/2019 Transcribed Document [facility] Radiology [address] [place] [address] Nba Delcid MD [address] [place] [address] Social History Tobacco Use Types Packs/Day Years Used Date Smoking Tobacco: Never Assessed Comments Unknown Sex and Gender Information Value Date Recorded Sex Assigned at Not on file Legal Sex Female 2:42 PM CDT Gender Identity Not on file Sexual Orientation Not on file documented as of this encounter Miscellaneous Notes * Cerner Conversion Note - Nba Delcid MD - 12/23/2019 9:47 AM EDT Patient: NATE KRAMER Age: 69 years Sex: Female : 1950 Associated Diagnoses: None Author: NBA DELCID MD-INT Subjective Chief complaint. Saturday, December 23, 2019. Patient really without complaints this morning she does have ileostomy but it's leaking there's stool on her abdomen. No fevers or chills. No shortness of breath coughing wheezing. No dysuria hematuria. Coleman catheter placed but apparently came out to the nurses replacing. She states usually uses a lidocaine patch. Review of Systems Constitutional: Decreased activity, No fever, No chills. Respiratory: No shortness of breath, No cough. Cardiovascular: No chest pain, No palpitations. Gastrointestinal: No nausea, No vomiting, No diarrhea, No constipation. Genitourinary: No dysuria. Neurologic: Alert and oriented X4, No confusion. Psychiatric: No anxiety, No depression. Health Status Allergies: Allergic Reactions (Selected) Severity Not Documented Meperidine- Hypotension. Sulfa drugs- Hives., Allergies (2) Active Reaction meperidine Hypotension sulfa drugs Hives Problem list: Medical Allergic rhinitis / SNOMED CT 262149158 / Confirmed Asthma / SNOMED CT 063386489 / Confirmed Back pain / SNOMED CT 7903475891 / Confirmed Back problem//multiple fractures / SNOMED CT 620974507 / Confirmed BBB (bundle branch block)//right / SNOMED CT 80866735 / Confirmed Cataract//extraction / SNOMED CT 344258046 / Confirmed Chronic diarrhea / SNOMED CT 997467638 / Confirmed Difficulty walking//walker / SNOMED CT 7481612375 / Confirmed Dental disorder//bottom teeth extraction//stitches intact / SNOMED CT 4884908388 / Confirmed Dizziness / SNOMED CT 9577295903 / Confirmed Fistula//colon//bladder//vaginia / SNOMED CT 7725063427 / Confirmed Ribs, multiple fractures / SNOMED CT 0347030 / Confirmed GERD - Gastro-esophageal reflux disease / SNOMED CT 9173539268 / Confirmed History of obstructive sleep apnea / IMO 33008167 / Confirmed Hypotension / SNOMED CT 666485132 / Confirmed Skin cancer / SNOMED CT 4917784535 / Confirmed Multiple myeloma / SNOMED CT 161685648 / Confirmed Restless legs syndrome / SNOMED CT 98696155 / Confirmed Sinusitis / SNOMED CT 73624505 / Confirmed Sleep apnea//no machine / SNOMED CT 891319109 / Confirmed Urinary tract infection//jul 2018 / SNOMED CT 132291372 / Confirmed, Active Problems (21) Allergic rhinitis Asthma Back pain Back problem//multiple fractures BBB (bundle branch block)//right Cataract//extraction Chronic diarrhea Dental disorder//bottom teeth extraction//stitches intact Difficulty walking//walker Dizziness Fistula//colon//bladder//vaginia GERD - Gastro-esophageal reflux disease History of obstructive sleep apnea Hypotension Multiple myeloma Restless legs syndrome Ribs, multiple fractures Sinusitis Skin cancer Sleep apnea//no machine Urinary tract infection//jul 2018 Current medications: (Selected) Inpatient Medications Ordered Colace: 100 mg, Oral, BID Dulcolax Laxative: 5 mg, Oral, Daily, PRN: Constipation Dulera 200 mcg-5 mcg/inh inhalation aerosol: 2 Puff, Inhalation, BID DuoNeb 0.5 mg-2.5 mg/3 mL inhalation solution: 3 mL, Nebulized Inhalation, RT_Q6H, PRN: Shortness of Breath Flonase: 1 [place], Nasal, BID Florastor: 250 mg, Oral, Daily, PRN: Loose Stool Lidoderm 5% topical film: 1 Patch, TransDermal, Daily MiraLax: 17 Gram, Oral, Daily, PRN: Constipation Sodium Chloride 0.9% intravenous solution 1,000 mL: 50 mL/Hr, IntraVENous Wellbutrin XL: 150 mg, Oral, Daily acetaminophen: 1,000 mg, Oral, Q6H aspirin: 81 mg, Oral, At Bedtime cyanocobalamin: 2,500 mcg, Oral, Daily diazePAM: 5 mg, Oral, Q6H, PRN: Other (See Comment) fentaNYL 25 mcg/hr transdermal film, extended release: 1 Patch, Topical, [id number] furosemide: 20 mg, Oral, At Bedtime gabapentin: 300 mg, Oral, BID heparin: 5,000 Units, SubCutaneous, Q8H insulin regular sliding scale: Scale A, SubCutaneous, Q6H magnesium oxide: 400 mg, Oral, BID morphine: 2 mg, IV Push, Q2H, PRN: Pain (Severe 7-10) ondansetron: 4 mg, IV Push, Q6H, PRN: Nausea/Vomiting oxyCODONE: 10 mg, Oral, Q8H, PRN: Pain (Severe 7-10) oxyCODONE: 5 mg, Oral, Q4H, PRN: Pain (Moderate 4-6) pantoprazole: 40 mg, Oral, Daily Documented Medications Documented Flonase: 1 [place], Nasal, BID, 0 Refill(s) Florastor 250 mg oral capsule: 1 Cap, Oral, Daily, PRN: for loose stool, 10 Cap, 0 Refill(s) K-Dur 10: 90 mEq, Oral, BID, 0 Refill(s) Lidoderm: 1 Patch, TransDermal, Daily, 0 Refill(s) Mucinex 600 mg oral tablet, extended release: 1 Tab, Oral, Q12H, 0 Refill(s) Promethazine DM 6.25 mg-15 mg/5 mL oral syrup: 5 mL, Oral, Q6H, PRN: as needed, 0 Refill(s) Proventil HFA 90 mcg/inh inhalation aerosol: 2 Puff, Inhalation, Q4H, PRN: as needed for wheezing, 0 Refill(s) Symbicort 160 mcg-4.5 mcg/inh inhalation aerosol: 2 Puff, Inhalation, BID, 0 Refill(s) ZyrTEC-D: 5-120 mg, Oral, Daily, 0 Refill(s) albuterol-ipratropium 2.5 mg-0.5 mg/3 mL inhalation solution: 3 mL, Nebulized Inhalation, Q8H, PRN: as needed for shortness of breath or wheezing, 0 Refill(s) aspirin: 81 mg, Oral, At Bedtime, 0 Refill(s) buPROPion 150 mg/24 hours (XL) oral tablet, extended release: 1 Tab, Oral, [id number], 0 Refill(s) cyanocobalamin: 2,500 mcg, Oral, Daily, 0 Refill(s) fentaNYL 25 mcg/hr transdermal film, extended release: 25 mcg/Hr, Topical, [id number], 0 Refill(s) furosemide: 20 mg, Oral, At Bedtime, 0 Refill(s) furosemide: 40 mg, Oral, Daily, 0 Refill(s) gabapentin: 300 mg, Oral, BID, 0 Refill(s) magnesium oxide: 400 mg, Oral, BID, 0 Refill(s) montelukast: 10 mg, Oral, At Bedtime, 0 Refill(s) nystatin 100,000 units/mL oral suspension: 4 mL, Oral, QID, retain in mouth as long as possible before swallowing, 0 Refill(s) omeprazole: 40 mg, Oral, Daily, 0 Refill(s) ondansetron: 8 mg, Oral, Q8H, PRN: as needed for nausea/vomiting, 0 Refill(s) oxyCODONE: 10 mg, Oral, Q8H, PRN: as needed for pain, 0 Refill(s) rOPINIRole: 0.25 mg, Oral, BID, 0 Refill(s), Home Medications (24) Active albuterol-ipratropium 2.5 mg-0.5 mg/3 mL inhalation solution 3 mL, PRN, Nebulized Inhalation, Q8H aspirin 81 mg, Oral, At Bedtime buPROPion 150 mg/24 hours (XL) oral tablet, extended release 150 mg = 1 Tab, Oral, [id number] cyanocobalamin 2,500 mcg, Oral, Daily fentaNYL 25 mcg/hr transdermal film, extended release 25 mcg/Hr, Topical, [id number] Flonase 1 [place], Nasal, BID Florastor 250 mg oral capsule 250 mg = 1 Cap, PRN, Oral, Daily furosemide 40 mg, Oral, Daily furosemide 20 mg, Oral, At Bedtime gabapentin 300 mg, Oral, BID K-Dur 10 90 mEq, Oral, BID Lidoderm 1 Patch, TransDermal, Daily magnesium oxide 400 mg, Oral, BID montelukast 10 mg, Oral, At Bedtime Mucinex 600 mg oral tablet, extended release 600 mg = 1 Tab, Oral, Q12H nystatin 100,000 units/mL oral suspension 400,000 Units = 4 mL, Oral, QID omeprazole 40 mg, Oral, Daily ondansetron 8 mg, PRN, Oral, Q8H oxyCODONE 10 mg, PRN, Oral, Q8H Promethazine DM 6.25 mg-15 mg/5 mL oral syrup 5 mL, PRN, Oral, Q6H Proventil HFA 90 mcg/inh inhalation aerosol 2 Puff, PRN, Inhalation, Q4H rOPINIRole 0.25 mg, Oral, BID Symbicort 160 mcg-4.5 mcg/inh inhalation aerosol 2 Puff, Inhalation, BID ZyrTEC-D 5-120 mg, Oral, Daily , Medications (25) Active Scheduled: (15) acetaminophen 500 mg tab 1,000 mg 2 Tab, Oral, Q6H aspirin 81 mg chew tab 81 mg 1 Tab, Oral, At Bedtime buPROPion XL 150 mg tab 150 mg 1 Tab, Oral, Daily cyanocobalamin 2500 mcg SL tab 2,500 mcg 1 Tab, Oral, Daily docusate sodium 100 mg cap 100 mg 1 Cap, Oral, BID fentaNYL 25 mcg/hr 72 hr patch 1 Patch, Topical, [id number] fluticasone 0.05% nasal spray 1 [place], Nasal, BID furosemide 20 mg tab 20 mg 1 Tab, Oral, At Bedtime gabapentin 300 mg cap 300 mg 1 Cap, Oral, BID heparin 5,000 units/1 mL inj 5,000 Units 1 mL, SubCutaneous, Q8H insulin regular 1 unit/0.01 mL inj 3mL Scale A, SubCutaneous, Q6H lidocaine 4% patch 1 Patch, TransDermal, Daily magnesium oxide 400 mg tab 400 mg 1 Tab, Oral, BID mometasone/formoterol 200/5 mcg inh 2 Puff, Inhalation, BID pantoprazole EC 40 mg tab 40 mg 1 Tab, Oral, Daily Continuous: (1) NaCl 0.9% 1,000 mL 1,000 mL, IntraVENous, 50 mL/Hr PRN: (9) albuterol-ipratropium inh 3 mL 3 mL, Nebulized Inhalation, RT_Q6H bisacodyl EC 5 mg tab 5 mg 1 Tab, Oral, Daily diazepam 5 mg tab 5 mg 1 Tab, Oral, Q6H morphine 2 mg/1 ml inj 2 mg 1 mL, IV Push, Q2H ondansetron 4 mg/2 mL inj 4 mg 2 mL, IV Push, Q6H oxyCODONE 5 mg tab 5 mg 1 Tab, Oral, Q4H oxyCODONE 5 mg tab 10 mg 2 Tab, Oral, Q8H polyethylene glycol 3350 pwd 17 g pkt 17 Gram 1 Packet, Oral, Daily saccharomyces boulardii 250 mg cap 250 mg 1 Cap, Oral, Daily Objective VS/Measurements Vitals Signs (last 24 hrs) Last Charted Minimum Maximum Temp 97.7 (DEC 22 11:15) 97.7 (DEC 22 11:15) 98.4 (DEC 21 23:30) Mon HR 83 (DEC 22 11:15) 70 (DEC 22 07:58) 90 (DEC 21 20:05) Resp Rate 16 (DEC 22 06:00) 16 (DEC 21 23:30) 18 (DEC 21 18:00) SBP 104 (DEC 22 11:15) 91 (DEC 22 03:29) 129 (DEC 21 18:00) DBP L 51 (DEC 22 11:15) L 42 (DEC 22 03:29) 61 (DEC 21 18:00) MAP 63 (DEC 22 11:15) 55 (DEC 22 03:29) 70 (DEC 21 23:30) SpO2 100 (DEC 22 06:00) 98 (DEC 22 03:29) 100 (DEC 21 18:00) Physical Examination VS/Measurements Vitals Signs (last 24 hrs) Last Charted Minimum Maximum Temp 97.7 (DEC 22 11:15) 97.7 (DEC 22 11:15) 98.4 (DEC 21 23:30) Mon HR 83 (DEC 22 11:15) 70 (DEC 22 07:58) 90 (DEC 21 20:05) Resp Rate 16 (DEC 22 06:00) 16 (DEC 21 23:30) 18 (DEC 21 18:00) SBP 104 (DEC 22 11:15) 91 (DEC 22 03:29) 129 (DEC 21 18:00) DBP L 51 (DEC 22 11:15) L 42 (DEC 22 03:29) 61 (DEC 21 18:00) MAP 63 (DEC 22 11:15) 55 (DEC 22 03:29) 70 (DEC 21 23:30) SpO2 100 (DEC 22 06:00) 98 (DEC 22 03:29) 100 (DEC 21 18:00) , Measurements from flowsheet : Measurements 12/22/2019 6:28 EDT Height Source Measured Height Entry Format [place] Height/Length, MACANESE (ft) 5 ft Height/Length MACANESE 2.5 Inch CLINICALHEIGHT 158.75 cm [place] Body Weight 51 kg Weight Source Standing scale Weight Entry Format [place] Weight Cameroonian lb 147 lb CLINICALWEIGHT 66.82 kg Body Surface Area (BSA) 1.69 m2 Body Mass Index 26.5 kg/m2 HI General: Alert and oriented, No acute distress. Eye: Pupils are equal, round and reactive to light, Extraocular movements are intact. HENT: Normocephalic, Normal hearing. Neck: Supple, No jugular venous distention. Respiratory: Lungs are clear to auscultation, Breath sounds are equal. Cardiovascular: Normal rate, Regular rhythm. Gastrointestinal: Soft, Non-tender, Normal bowel sounds, right ileostomy with liquid stool leaking.. Genitourinary: No costovertebral angle tenderness. Lymphatics: No lymphadenopathy neck, axilla, groin. Musculoskeletal: Normal range of motion, Normal strength. Integumentary: Dry, Intact. Neurologic: Alert, Oriented, Normal sensory. Psychiatric: Cooperative, Appropriate mood & affect. Review / Management Results review: Labs (Last four charted values) WBC H 11.8 (DEC 22) 8.6 (DECEMBER 17) HB L 10.0 (DEC 22) 11.4 (DEC 21) 12.1 (DECEMBER 17) HCT L 31.8 (DEC 22) 36.4 (DEC 21) 37.8 (DECEMBER 17) Plt 290 (DEC 22) 318 (DECEMBER 17) Na L 132 (DEC 22) L 132 (DEC 22) 139 (DECEMBER 17) K 5.0 (DEC 22) 5.1 (DEC 22) 5.0 (DEC 22) H 5.8 (DEC 22) Cl L 101 (DEC 22) 102 (DEC 22) L 100 (DECEMBER 17) CO2 21 (DEC 22) 24 (DEC 22) H 34 (DECEMBER 17) BUN 15 (DEC 22) 14 (DEC 22) 11 (DECEMBER 17) Cr H 2.30 (DEC 22) H 2.30 (DEC 22) H 1.40 (DECEMBER 17) Glu R 99 (DEC 22) 106 (DEC 22) H 136 (DEC 21) 86 (DECEMBER 17) Ca 8.6 (DEC 22) 8.4 (DEC 22) 9.3 (DECEMBER 17) PT 10.1 (DEC 22) INR 1.0 (DEC 22) AST 29 (DEC 22) 19 (DECEMBER 17) ALT 22 (DEC 22) 17 (DECEMBER 17) ALK P 115 (DEC 22) H 166 (DECEMBER 17) T Bili 0.6 (DEC 22) 0.4 (DECEMBER 17) PTN L 5.0 (DEC 22) 6.7 (DECEMBER 17) ALB L 2.2 (DEC 22) L 3.0 (DECEMBER 17) . Impression and Plan colo- Vaginal fistula. -symptoms over the past year -ivf -LAR with ileostomy- december 21 Postoperative pain on chroni pain. opiates fentanyl path 25 q 3 day gabapentin 300 mg po bid oxycodone 10 mg po bid prn uses about 2 x a week acetaminophen 1000 q 6 hr ketoralac Acute renal failure postoperative. Creatinine 1.4 increased to 2.3. IV fluids. Renal consult. Hyper kalemia. Hypokalemia 2.2 increased to 5.8. Serial checks Multpile myeloma -oncologist in [facility] dvt prophylaxis- hepatrin 5000 q 8 hr full code. of 50 years in [place] Monday, December 23, 2019. 35 minutes spent on the follow-up this really nice 61-year-old lady chronic pain and fortunate she does have a stool outputout ofher ileostomy she does have some acute renal failure and her creatinine jumped up from 1.4 up to 2.3. Potassium also jumped up to 5.8 ordered Kayexalate and recheck. Also IV fluids and Coleman catheter placement. [email or web address] dictation system used. Computer program makes numerous spelling grammar mistakes. If you have any questions or concerns do not hesitate call Dr. Nba Garcia at cell phone number [phone]. documented in this encounter Plan of Treatment Not on file documented as of this encounter Visit Diagnoses Not on filedocumented in this encounter
--- OUTSIDE RECORDS SUMMARY | 2025-02-23 12:34 | XMS_ITS | Encounter Summary ---
Author Organization [employer] ([place], [place], [place], [place]) Address [address] [place] [address] Care Team Providers Care Intern Product Marketing Manager Name Role Phone Unavailable Primary Care Provider Unavailabl e Encounter Details Date Type Department Care Team (Late st Contact Info) Description 05/27/2020 Transcribed Document [facility] [place] [facility] [place] [address] ProviderNuha MD [address] [place] [address] Social History Tobacco Use Types Packs/Day Years Used Date Smoking Tobacco: Never Assessed Comments Unknown Sex and Gender Information Value Date Recorded Sex Assigned at Not on file Legal Sex Female 2:42 PM CDT Gender Identity Not on file Sexual Orientation Not on file documented as of this encounter Miscellaneous Notes * Cerner Conversion Note - Historical ProviderMD - 05/27/2020 6:00 AM CAMPUS ADMINISTRATIVE ASSISTANT Pain Assessment Entered On: 05/27/2020 8:28 EST Performed On: 05/27/2020 7:03 EST by MELODY YOST RN Intervention Information: oxyCODONE Performed by Ciarra Espino RN on 05/27/2020 06:03:00 EST oxyCODONE,10mg Oral Pain Assessment Pain Assessment : Follow-up assessment Pain Scale Goal : 3 Pain Scale Used : 0-10 Scale Onset : Chronic Pain Intervention, Drug : Medicated Pain Intervention, Non-Drug : Positioning Pain Improved by Intervention : Yes MELODY YOST RN - 05/27/2020 8:27 EST Pain Scale Intensity : 3 MELODY YOST RN - 05/27/2020 8:27 EST Image 4 - Images currently included in the form version of this document have not been included in the text rendition version of the form. documented in this encounter Plan of Treatment Not on file documented as of this encounter Visit Diagnoses Not on filedocumented in this encounter
--- OUTSIDE RECORDS SUMMARY | 2025-02-23 12:34 | XMS_ITS | Encounter Summary ---
Author Organization [employer] ([place], [place], [place], [place]) Address [address] [place] [address] Care Team Providers Care Revenue Coordinator Name Role Phone Unavailable Primary Care Provider Unavailabl e Encounter Details Date Type Department Care Team (Late st Contact Info) Description 12/24/2019 Transcribed Document [facility] [place] [address] [place] [address] ProviderNuha MD [address] [place] [address] Social History Tobacco Use Types Packs/Day Years Used Date Smoking Tobacco: Never Assessed Comments Unknown Sex and Gender Information Value Date Recorded Sex Assigned at Not on file Legal Sex Female 2:42 PM CDT Gender Identity Not on file Sexual Orientation Not on file documented as of this encounter Miscellaneous Notes * Cerner Conversion Note - Historical ProviderMD - 12/24/2019 5:00 PM CDT Chart Check - Review Order Profile Entered On: 12/24/2019 17:25 EDT Performed On: 12/24/2019 17:00 EDT by Ambar Rai RN Chart Check Powerplans Initiated/Discontinued as Appropriate : Yes All Active Orders Reviewed : Yes Amabr Rai RN - 12/24/2019 17:25 EDT documented in this encounter Plan of Treatment Not on file documented as of this encounter Visit Diagnoses Not on filedocumented in this encounter
--- OUTSIDE RECORDS SUMMARY | 2025-02-23 12:34 | XMS_ITS | CCD ---
Author Name Interface, [id number] lity Address [address] [place], [place] [address] [place] [address] Address [address] [place] [address] Reason for Visit Social History
--- OUTSIDE RECORDS SUMMARY | 2025-02-23 12:34 | XMS_ITS | Encounter Summary ---
Author Organization [employer] ([place], [place], [place], [place]) Address [address] [place] [address] Care Team Providers Care Labor Supervisor Name Role Phone Unavailable Primary Care Provider Unavailabl e Encounter Details Date Type Department Care Team (Late st Contact Info) Description 05/27/2020 Transcribed Document [facility] [place] [address] [place] [address] ProviderNuha MD [address] [place], [place] [id number] Social History Tobacco Use Types Packs/Day Years Used Date Smoking Tobacco: Never Assessed Comments Unknown Sex and Gender Information Value Date Recorded Sex Assigned at Not on file Legal Sex Female 2:42 PM CDT Gender Identity Not on file Sexual Orientation Not on file documented as of this encounter Miscellaneous Notes * Cerner Conversion Note - Historical ProviderMD - 05/27/2020 1:55 PM UTILITIES ESTIMATOR AND DRAFTER UM Authorization Entered On: 05/27/2020 13:55 EST Performed On: 05/27/2020 13:55 EST by ARTURO ALCANTAR RN-Utilization Review Primary Insurance Authorization Authorization and Policy Numbers : Insurance 1 Health Plan: MEDICARE Policy Number: [id number] Authorization Number: Insurance 2 Health Plan: [employer] Medicare Supplement Policy Number: [id number] Authorization Number: Insurance Primary Name : MEDICARE Policy Number: [id number] Authorized Service Begin Date-Primary : 05/26/2020 EST Historical Authorization Comments-Primary : No Authorization Comments Found ARTURO ALCANTAR RN-Utilization Review - 05/27/2020 13:55 EST documented in this encounter Plan of Treatment Not on file documented as of this encounter Visit Diagnoses Not on filedocumented in this encounter
--- OUTSIDE RECORDS SUMMARY | 2025-02-23 12:34 | XMS_ITS | Encounter Summary ---
Author Organization [employer] ([place], [place], [place], [place]) Address [address] [place] [address] Care Team Providers Care Java Websphere Developer Name Role Phone Unavailable Primary Care Provider Unavailabl e Encounter Details Date Type Department Care Team (Late st Contact Info) Description 05/27/2020 Transcribed Document [facility] [place] [address] [place] [address] ProviderNuha MD [address] [place] [address] Social History Tobacco Use Types Packs/Day Years Used Date Smoking Tobacco: Never Assessed Comments Unknown Sex and Gender Information Value Date Recorded Sex Assigned at Not on file Legal Sex Female 2:42 PM CDT Gender Identity Not on file Sexual Orientation Not on file documented as of this encounter Miscellaneous Notes * Cerner Conversion Note - Historical ProviderMD - 05/27/2020 5:00 AM PHARMACIST MANAGER Chart Check - Review Order Profile Entered On: 05/27/2020 5:43 EST Performed On: 05/27/2020 5:00 EST by Ciarra Espino RN Chart Check Powerplans Initiated/Discontinued as Appropriate : Yes All Active Orders Reviewed : Yes Ciarra Espino RN - 05/27/2020 5:43 EST documented in this encounter Plan of Treatment Not on file documented as of this encounter Visit Diagnoses Not on filedocumented in this encounter
--- OUTSIDE RECORDS SUMMARY | 2025-02-23 12:34 | XMS_ITS | Encounter Summary ---
Author Organization [email or web address] ([place], [place], [place], [place]) Address [address] [place] [address] Care Team Providers Care Overhead Crane Inspector Name Role Phone Unavailable Primary Care Provider Unavailabl e Encounter Details Date Type Department Care Team (Late st Contact Info) Description 12/24/2019 Transcribed Document [facility] [place] [address] [place] [address] ProviderNuha MD [address] [place] [address] Social History Tobacco Use Types Packs/Day Years Used Date Smoking Tobacco: Never Assessed Comments Unknown Sex and Gender Information Value Date Recorded Sex Assigned at Not on file Legal Sex Female 2:42 PM CDT Gender Identity Not on file Sexual Orientation Not on file documented as of this encounter Miscellaneous Notes * Cerner Conversion Note - Historical ProviderMD - 12/24/2019 4:00 PM CDT Patch Check Entered On: 12/24/2019 17:24 EDT Performed On: 12/24/2019 16:00 EDT by Ambar Rai RN Patch Check Patch Check Result : Yes Patch Check - Type of Patch : fentaNYL (Duragesic) Ambar Rai RN - 12/24/2019 17:24 EDT documented in this encounter Plan of Treatment Not on file documented as of this encounter Visit Diagnoses Not on filedocumented in this encounter
--- OUTSIDE RECORDS SUMMARY | 2025-02-23 12:34 | XMS_ITS | Encounter Summary ---
Author Organization [employer] ([place], [place], [place], [place]) Address [address] [place] [address] Care Team Providers Care Activities Director Scouting Name Role Phone Unavailable Primary Care Provider Unavailabl e Encounter Details Date Type Department Care Team (Late st Contact Info) Description 12/24/[address] [facility] [place] Medicine [facility] [place] [address] ProviderNuha MD [address] [place] [address] Social History Tobacco Use Types Packs/Day Years Used Date Smoking Tobacco: Never Assessed Comments Unknown Sex and Gender Information Value Date Recorded Sex Assigned at Not on file Legal Sex Female 2:42 PM CDT Gender Identity Not on file Sexual Orientation Not on file documented as of this encounter Miscellaneous Notes * Cerner Conversion Note - Historical ProviderMD - 12/24/2019 7:38 AM CDT Patient: NATE KRAMER Age: 69 years Sex: Female : 1950 Associated Diagnoses: None Author: BHUPENDRA MARISCAL MD-PRO Overall doing well. Some back pain. No abdominal pain. Ileostomy looks good. No stoma teaching yet. Urine is clear. Creatinine is coming down. Coleman catheter placed yesterday to monitor renal insufficiency. Hemoglobin trending down. I expect dilution but I'll recheck at 1:00 this afternoon. No signs of active bleeding. Drain is serosanguineous. Spoke with her nurses regarding stoma teaching today. Continue supportive care. She'll be likely ready for home as soon as tomorrow as long as the medical doctors are happy with her renal function. documented in this encounter Plan of Treatment Not on file documented as of this encounter Visit Diagnoses Not on filedocumented in this encounter
--- OUTSIDE RECORDS SUMMARY | 2025-02-23 12:34 | XMS_ITS | Encounter Summary ---
Author Organization [employer] ([place], [place], [place], [place]) Address [address] [place] [address] Care Team Providers Care Instructional Consultant Name Role Phone Unavailable Primary Care Provider Unavailabl e Encounter Details Date Type Department Care Team (Late st Contact Info) Description 05/27/2020 Transcribed Document [facility] [place] Family Medicine [address] [place] [address] ProviderNuha MD [address] [place] [address] Social History Tobacco Use Types Packs/Day Years Used Date Smoking Tobacco: Never Assessed Comments Unknown Sex and Gender Information Value Date Recorded Sex Assigned at Not on file Legal Sex Female 2:42 PM CDT Gender Identity Not on file Sexual Orientation Not on file documented as of this encounter Miscellaneous Notes * Cerner Conversion Note - Nuha ProviderMD - 05/27/2020 10:05 AM ROOFER APPRENTICE Initial Discharge Planning Entered On: 05/27/2020 10:12 EST Performed On: 05/27/2020 10:05 EST by REECE ROBLES RN-Fitting Room Inspector Initial Assessment I Previously Documented Living Environment : No qualifying data available. Living Situation : Home Patient Lives With : Spouse Emergency Contact #1 : mario hien Emergency Contact #1 Emergency Contact #1 Relationship : spouse Emergency Contact #2 : angel hien Emergency Contact #2 Emergency Contact #2 Relationship : son Enter Doctors Name : Jenn Rosales MD Does Patient have PCP Listed? : Yes Medical Durable Power of Prior Authorization Nurse Name : no Legal Guardian : No Is Guardianship Needed : No REECE ROBLES RN-Fitting Room Inspector - 05/27/2020 10:05 EST Initial Assessment II Sensory and Motor Deficits : None, Weakness Current Home Treatments and Equipment : Cane, CPAP, Elevated toilet seat, Ostomy care, Shower chair, Walker, Wheelchair Home Equipment Contact Information : [facility] [phone] [employer] [facility]: ostomy supplies. she mail orders Does the Patient have a Floor to SNF Benefit? : Yes REECE ROBLES, RN-Fitting Room Inspector - 05/27/2020 10:05 EST Discharge Needs I Anticipated Discharge Date : 05/25/2020 EST Anticipated Discharge To, CM : Home with home health, Rehabilitation Unit Current Home Treatment/Equipment : Current Home Treatment/Equipment No qualifying data available. Post Acute/Home Treatments : Cane, CPAP, Ostomy care, Shower chair, Walker, Wheelchair Documentation Status Complete : Yes REECE ROBLES RN-Fitting Room Inspector - 05/27/2020 10:05 EST Discharge Needs II Professional Skilled Services : Professional Skilled Services No qualifying data available. Needs Assistance with Transportation : No Discharge Options Discussed with Patient : Acute rehabilitation, Home Health REECE ROBLES, RN-Fitting Room Inspector - 05/27/2020 10:05 EST Narrative Note Narrative Note : readmit risk: high 61 ED admit. severe life threatening hyperkalemia (7.4). re-ckd. severe dehydration. hx: colectomy/ileostomy. covid 19: negative 11-5. d50w/insulin. iv fluids 75 hr. ns bolus. spoke with Ms. Burrell. explained role of case mangement. pt resides in [facility] with spouse, Laci. has equipment to include cpap which she doesn't use provided by [facility]. hh in past provided by [facility], not current. previous rehab stay at [facility]. tx planning based on progress. likely hh. spoke with bedside RNBen. REECE ROBLES, RN-Fitting Room Inspector - 05/27/2020 10:05 EST documented in this encounter Plan of Treatment Not on file documented as of this encounter Visit Diagnoses Not on filedocumented in this encounter
--- OUTSIDE RECORDS SUMMARY | 2025-02-23 12:34 | XMS_ITS | Encounter Summary ---
Author Organization [facility] Address [address] [place] [address] Care Team Providers Care Transitional Studies Instructor Name Role Phone Jenn Rosales MD Primary Care Provider [phone] Reason for Visit * Reason Onset Date Comments follow up on symptoms 01/27/2025 Encounter Details Date Type Department Care Team (Late st Contact Info) Description 01/27/2025 Telephone [facility] [address] [place] [address] Elida Farias RN [facility] follow up on symptoms Social History Tobacco Use Types Packs/Day Years Used Date Smoking Tobacco: Never Smokeless Tobacco: Never Alcohol Use Standard Drinks/Week Comments No 0 (1 standard drink = 0.6 oz pur e alcohol) PHQ-2 Answer Date Recorded Patient Health Questionnaire-2 Score 0 11/02/2024 PHQ-9 Answer Date Recorded Patient Health Questionnaire-9 Score 0 10/01/2024 PHQ-2A Answer Date Recorded Patient Health Questionnaire-2 Score 0 11/22/2022 Comments Unknown Sex and Gender Information Value Date Recorded Sex Assigned at Not on file Legal Sex Female 8:21 PM EDT Gender Identity Not on file Sexual Orientation Not on file documented as of this encounter Miscellaneous Notes * Telephone Encounter - Elida Farias RN - 01/27/2025 8:07 AM EDT Called pt to check in, Dr Obrien seen results from EGD. Pt states off inhalers for 1 month and doing well, no coughing. On Voquezna 10mg and doing well. Noticed increase in symptoms when switched from 20mg to 10mg, but otherwise doing well. Encouraged pt to reach out if needing anything or change in symptoms. She verbalized understanding and thanked me for calling. documented in this encounter Plan of Treatment Not on file documented as of this encounter Visit Diagnoses Not on filedocumented in this encounter Additional Health Concerns Assessment Noted Time PHQ-9 Depression Total Score: 0 10/02/19 25 9:13 AM EDT A fall risk assessment has been complete d for the patient 11/02/2024 11:34 AM EDT A Body Mass Index follow-up plan has been documented for the patient 11/02/2024 12:06 PM EDT documented as of this encounter Care Teams Transitional Studies Instructor Relationship Specialty Start Date End Date Jenn Rosales MD Counts include 234 beds at the [facility] [place] [address] PCP - General 12/02/20 documented as of this encounter
--- OUTSIDE RECORDS SUMMARY | 2025-02-23 12:34 | XMS_ITS | Encounter Summary ---
Author Organization [employer] ([place], [place], [place], [place]) Address [address] [place] [address] Care Team Providers Care Mineralogy Professor Name Role Phone Unavailable Primary Care Provider Unavailabl e Encounter Details Date Type Department Care Team (Late st Contact Info) Description 05/26/2020 Transcribed Document [facility] [place] [address] [place] [address] ProviderNuha MD [address] [place] [address] Social History Tobacco Use Types Packs/Day Years Used Date Smoking Tobacco: Never Assessed Comments Unknown Sex and Gender Information Value Date Recorded Sex Assigned at Not on file Legal Sex Female 2:42 PM CDT Gender Identity Not on file Sexual Orientation Not on file documented as of this encounter Miscellaneous Notes * Cerner Conversion Note - Historical ProviderMD - 05/26/2020 5:34 PM BOTTOM LOADER ED Discharge Entered On: 05/26/2020 17:34 EST Performed On: 05/26/2020 17:34 EST by Olivia Aguirre RN Discharge Process Patient Disposition : Admit/Observe Personal Belongings With Patient : Yes Patient Education Completed : Yes Teaching Evaluation : Verbalizes understanding IV Discontinued : No Olivia Aguirre RN - 05/26/2020 17:34 EST Admission, ED Nurse Report Accepted By : Perla Nurse Report Acceptance Time : 05/26/2020 17:29 EST `Nurse Report (Hand Off) : Called Accompanied By, Discharge : Spouse, Other: RN; monitor Mode Of Departure : Wheelchair Olivia Aguirre RN - 05/26/2020 17:34 EST documented in this encounter Plan of Treatment Not on file documented as of this encounter Visit Diagnoses Not on filedocumented in this encounter
--- OUTSIDE RECORDS SUMMARY | 2025-02-23 12:34 | XMS_ITS | Encounter Summary ---
Author Organization [employer] ([place], [place], [place], [place]) Address [address] [place] [address] Care Team Providers Care Chief Security And Safety Officer Name Role Phone Unavailable Primary Care Provider Unavailabl e Encounter Details Date Type Department Care Team (Late st Contact Info) Description 12/24/2019 Transcribed Document [facility] [place] [address] [place] [address] ProviderNuha MD [address] [place] [address] Social History Tobacco Use Types Packs/Day Years Used Date Smoking Tobacco: Never Assessed Comments Unknown Sex and Gender Information Value Date Recorded Sex Assigned at Not on file Legal Sex Female 2:42 PM CDT Gender Identity Not on file Sexual Orientation Not on file documented as of this encounter Miscellaneous Notes * Cerner Conversion Note - Historical ProviderMD - 12/24/2019 2:00 AM CDT Pipe Fitter Details Entered On: 12/24/2019 1:41 EDT Performed On: 12/24/2019 2:00 EDT by Kavita Burrell Lpn Order Details Transport Mode Order Detail : Wheelchair Isolation Precautions Order Detail : Standard Precautions Order Detail : 0 IV Order Detail : 0 Oxygen Order Detail : 0 Nurse Collect Order Detail : 1 Lift/Transfer : Moderate assist Central Line Order Detail : Yes Room Service : Not Appropriate Arterial Line : No Kavita Burrell Lpn - 12/24/2019 1:40 EDT documented in this encounter Plan of Treatment Not on file documented as of this encounter Visit Diagnoses Not on filedocumented in this encounter
--- OUTSIDE RECORDS SUMMARY | 2025-02-23 12:34 | XMS_ITS | Encounter Summary ---
Author Organization [employer] ([place], [place], [place], [place]) Address [address] [place] [address] Care Team Providers Care Court Reporter Name Role Phone Unavailable Primary Care Provider Unavailabl e Encounter Details Date Type Department Care Team (Late st Contact Info) Description 12/23/[address] [facility] [place] [place] Family Medicine [address] [place] [address] ProviderNuha MD [address] [id number] Social History Tobacco Use Types Packs/Day Years Used Date Smoking Tobacco: Never Assessed Comments Unknown Sex and Gender Information Value Date Recorded Sex Assigned at Not on file Legal Sex Female 2:42 PM CDT Gender Identity Not on file Sexual Orientation Not on file documented as of this encounter Miscellaneous Notes * Cerner Conversion Note - Historical ProviderMD - 12/23/2019 11:00 AM CDT UM Authorization Entered On: 12/23/2019 11:00 EDT Performed On: 12/23/2019 11:00 EDT by ARTURO ALCANTAR RN-Utilization Review Primary Insurance Authorization Authorization and Policy Numbers : Insurance 1 Health Plan: MEDICARE Policy Number: [id number] Authorization Number: Insurance 2 Health Plan: MEDICARE SUPPLE GENERIC Policy Number: [id number] Authorization Number: Insurance Primary Name : MEDICARE Policy Number: [id number] Authorized Service Begin Date-Primary : 12/22/2019 EDT Historical Authorization Comments-Primary : No Authorization Comments Found ARTURO ALCANTAR, RN-Utilization Review - 12/23/2019 11:00 EDT documented in this encounter Plan of Treatment Not on file documented as of this encounter Visit Diagnoses Not on filedocumented in this encounter
--- OUTSIDE RECORDS SUMMARY | 2025-02-23 12:34 | XMS_ITS | Encounter Summary ---
Author Organization [employer] ([place], [place], [place], [place]) Address [address] [place] [address] Care Team Providers Care Handicrafts Teacher Name Role Phone Unavailable Primary Care Provider Unavailabl e Encounter Details Date Type Department Care Team (Late st Contact Info) Description 12/23/2019 Transcribed Document [facility] [place] [address] [place] [address] ProviderNuha MD [address] [place] [address] Social History Tobacco Use Types Packs/Day Years Used Date Smoking Tobacco: Never Assessed Comments Unknown Sex and Gender Information Value Date Recorded Sex Assigned at Not on file Legal Sex Female 2:42 PM CDT Gender Identity Not on file Sexual Orientation Not on file documented as of this encounter Miscellaneous Notes * Cerner Conversion Note - Historical ProviderMD - 12/23/2019 12:00 PM CDT Pain Assessment Entered On: 12/23/2019 12:59 EDT Performed On: 12/23/2019 12:42 EDT by Ambar Rai RN Intervention Information: acetaminophen Performed by Ambar Rai RN on 12/23/2019 11:42:00 EDT acetaminophen,1000mg Oral Pain Assessment Pain Assessment : Follow-up assessment Pain Scale Goal : 3 Pain Scale Used : 0-10 Scale Location : Back Onset : Acute Ambar Rai RN - 12/23/2019 12:58 EDT Pain Scale Intensity : 5 Ambar Rai RN - 12/23/2019 12:58 EDT Image 4 - Images currently included in the form version of this document have not been included in the text rendition version of the form. documented in this encounter Plan of Treatment Not on file documented as of this encounter Visit Diagnoses Not on filedocumented in this encounter
--- OUTSIDE RECORDS SUMMARY | 2025-02-23 12:34 | XMS_ITS | Encounter Summary ---
Author Organization [facility] Address [address] [place] [address] Care Team Providers Care Beam Carrier Hauler Pusher Name Role Phone Jenn Rosales MD Primary Care Provider [phone] Encounter Details Date Type Department Care Team ([facility] st Contact Info) Description 11/09/2024 Results Follow-Up Professional [facility] [address] [place] [address] Jen Obrien MD [address] [place] [address] Social History Tobacco Use Types Packs/Day Years [...] documented as of this encounter Care Teams Beam Carrier Hauler Pusher Relationship Specialty Start Date End Date Jenn Rosales MD [address] [place] [address] PCP - General 12/02/20 documented as of this encounter
--- OUTSIDE RECORDS SUMMARY | 2025-02-23 12:34 | XMS_ITS | Encounter Summary ---
Author Organization [employer] ([place], [place], [place], [place]) Address [address] [place] [address] Care Team Providers Care Iap Displays Analyst Name Role Phone Unavailable Primary Care Provider Unavailabl e Encounter Details Date Type Department Care Team (Late st Contact Info) Description 12/23/2019 Transcribed Document [facility] [place] [address] [place] [address] ProviderNuha MD [address], [place] [...] Conversion Note - Historical ProviderMD - 12/23/2019 6:00 AM CDT Pain Assessment Entered On: 12/23/2019 6:08 EDT Performed On: 12/23/2019 6:50 EDT by Kavita Burrell Lpn Intervention Information: acetaminophen Performed by Kavita Burrell Lpn on 12/23/2019 05:50:00 EDT acetaminophen,1000mg Oral Pain Assessment Pain Assessment : Follow-up assessment Pain Scale Goal : 3 Pain Scale Used : 0-10 Scale Kavita Burrell Lpn - 12/23/2019 6:07 EDT Pain Scale Intensity : 2 Kavita Burrell Lpn - 12/23/2019 6:07 EDT Image 4 - Images currently included in the form version of this document have not been included in the text rendition version of the form. documented in this encounter Plan of Treatment Not on file documented as of this encounter Visit Diagnoses Not on filedocumented in this encounter
--- OUTSIDE RECORDS SUMMARY | 2025-02-23 12:34 | XMS_ITS | Encounter Summary ---
Author Organization [employer] ([place], [place], [place], [place]) Address [address] [place] [address] Care Team Providers Care Railroad Inspector Name Role Phone Unavailable Primary Care Provider Unavailabl e Encounter Details Date Type Department Care Team (Late st Contact Info) Description 12/23/2019 Transcribed Document [facility] [place] Family Medicine [address] [place] [address] ProviderNuha MD [address] [place] [address] Social History Tobacco Use Types Packs/Day Years Used Date Smoking Tobacco: Never Assessed Comments Unknown Sex and Gender Information Value Date Recorded Sex Assigned at Not on file Legal Sex Female 2:42 PM CDT Gender Identity Not on file Sexual Orientation Not on file documented as of this encounter Miscellaneous Notes * Cerner Conversion Note - Historical ProviderMD - 12/23/2019 4:00 PM CDT Patch Check Entered On: 12/23/2019 18:30 EDT Performed On: 12/23/2019 16:00 EDT by Ambar Rai RN Patch Check Patch Check Result : Yes Patch Check - Type of Patch : fentaNYL (Duragesic) Patch Check - Location : Left Shoulder Ambar Rai RN - 12/23/2019 18:29 EDT documented in this encounter Plan of Treatment Not on file documented as of this encounter Visit Diagnoses Not on filedocumented in this encounter
--- OUTSIDE RECORDS SUMMARY | 2025-02-23 12:34 | XMS_ITS | Encounter Summary ---
Author Organization [employer] ([place], [place], [place], [place]) Address [address] [place] [address] Care Team Providers Care Order Schedule Clerk Name Role Phone Unavailable Primary Care Provider Unavailabl e Encounter Details Date Type Department Care Team (Late st Contact Info) Description 05/27/2020 Transcribed Document [facility] [place] Family Medicine [address] [place] [address] ProviderNuha MD [address] [place] [address] Social History Tobacco Use Types Packs/Day Years Used Date Smoking Tobacco: Never Assessed Comments Unknown Sex and Gender Information Value Date Recorded Sex Assigned at Not on file Legal Sex Female 2:42 PM CDT Gender Identity Not on file Sexual Orientation Not on file documented as of this encounter Miscellaneous Notes * Cerner Conversion Note - Nuha ProviderMD - 05/27/2020 12:51 PM PERIOPERATIVE EDUCATOR Patient Education Materials Follows: Hyperkalemia Hyperkalemia is when you have too much potassium in your blood. Potassium helps your body in many ways, but having too much can cause problems. If there is too much potassium in your blood, it can affect how your heart works. Potassium is normally removed from your body by your kidneys. Many things can cause the amount in your blood to be high. Medicines and other treatments can be used to bring the amount to a normal level. Treatment may need to be done in the hospital. Follow these instructions at home: ??? Take ivwu-hpn-ywuqefe and prescription medicines only as told by your doctor. ??? Do not take any of the following unless your doctor says it is okay: ? Supplements. ? Natural products. ? Herbs. ? Vitamins. ??? Limit how much alcohol you drink as told by your doctor. ??? Do not use drugs. If you need help quitting, ask your doctor. ??? If you have kidney disease, you may need to follow a low-potassium diet. A fast foods worker (dietitian) can help you. ??? Keep all follow-up visits as told by your doctor. This is important. Contact a doctor if: ??? Your heartbeat is not regular or is very slow. ??? You feel dizzy (light-headed). ??? You feel weak. ??? You feel sick to your stomach (nauseous). ??? You have tingling in your hands or feet. ??? You lose feeling (have numbness) in your hands or feet. Get help right away if: ??? You are short of breath. ??? You have chest pain. ??? You pass out (faint). ??? You cannot move your muscles. Summary ??? Hyperkalemia is when you have too much potassium in your blood. ??? Take bzkb-flr-utttgjw and prescription medicines only as told by your doctor. ??? Limit how much alcohol you drink as told by your doctor. ??? Contact a doctor if your heartbeat is not regular. This information is not intended to replace advice given to you by your health care provider. Make sure you discuss any questions you have with your health care provider. Document Released: 07/08/2006 Document Revised: 06/23/2018 Document Reviewed: 06/23/2018 [employer] Patient Education ? 2020 [employer] documented in this encounter Plan of Treatment Not on file documented as of this encounter Visit Diagnoses Not on filedocumented in this encounter
--- OUTSIDE RECORDS SUMMARY | 2025-02-23 12:34 | XMS_ITS | Encounter Summary ---
Author Organization [employer] ([place], [place], [place], [place]) Address [address] [place] [address] Care Team Providers Care Cylinder Steamer Name Role Phone Unavailable Primary Care Provider Unavailabl e Encounter Details Date Type Department Care Team (Late st Contact Info) Description 12/24/2019 Transcribed Document [facility] [place] Medicine [facility] [place] [address] ProviderNuha MD [facility] [place] [address] Social History Tobacco Use Types Packs/Day Years Used Date Smoking Tobacco: Never Assessed Comments Unknown Sex and Gender Information Value Date Recorded Sex Assigned at Not on file Legal Sex Female 2:42 PM CDT Gender Identity Not on file Sexual Orientation Not on file documented as of this encounter Miscellaneous Notes * Cerner Conversion Note - Nuha ProviderMD - 12/24/2019 9:13 AM CDT Patient: NATE KRAMER Age: 69 years Sex: Female : 1950 Associated Diagnoses: None Author: DAVID JUDD MD-NEP Basic Information Patient is feeling better today, no shortness of breath. 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 She is brought to the operating room earlier today by Dr. Marilin Sandhu with colon rectal surgery who performed low anterior resection with loop ileostomy and no fevers or chills this afternoon. No nausea vomiting. No diarrhea constipation. No dysuria or hematuria.] ANNELISE DELCID MD-INT Patient is a very pleasant 61-year-old white female with a history of multiple myeloma in remission on medication. She had multiple corneal vaginal fistulas and she went for 1. Open low anterior resection. 2. Left ureterolysis. 3. Drainage of pelvic abscess. 4. Omental pedicle flap. 5. Diverting loop ileostomy., Surgery was successfully yesterday without any immediate complications. Her serum creatinine increased from 1.4 mg on admission up to 2.3 mg today. Patient received several doses of Toradol and 1 dose of meloxicam since admission. I was asked to see her in consultation and help in the management of the acute kidney injury. Review of Systems ROS reviewed as documented in chart Health Status Allergies: Allergic Reactions (Selected) Severity Not Documented Meperidine- Hypotension. Sulfa drugs- Hives., Allergies (2) Active Reaction meperidine Hypotension sulfa drugs Hives Current medications: (Selected) Inpatient Medications Ordered Colace: 100 mg, Oral, BID Dulcolax Laxative: 5 mg, Oral, Daily, PRN: Constipation Dulera 200 mcg-5 mcg/inh inhalation aerosol: 2 Puff, Inhalation, BID DuoNeb 0.5 mg-2.5 mg/3 mL inhalation solution: 3 mL, Nebulized Inhalation, RT_Q6H, PRN: Shortness of Breath Flonase: 1 [place], Nasal, BID Florastor: 250 mg, Oral, Daily, PRN: Loose Stool Lidoderm 5% topical film: 1 Patch, TransDermal, Daily MiraLax: 17 Gram, Oral, Daily, PRN: Constipation Sodium Chloride 0.9% intravenous solution 1,000 mL: 50 mL/Hr, IntraVENous Wellbutrin XL: 150 mg, Oral, Daily aspirin: 81 mg, Oral, At Bedtime cyanocobalamin: 2,500 mcg, Oral, Daily diazePAM: 5 mg, Oral, Q6H, PRN: Other (See Comment) fentaNYL 25 mcg/hr transdermal film, extended release: 1 Patch, Topical, [id number] furosemide: 20 mg, Oral, At Bedtime gabapentin: 300 mg, Oral, BID heparin: 5,000 Units, SubCutaneous, Q8H magnesium oxide: 400 mg, Oral, BID morphine: 2 mg, IV Push, Q2H, PRN: Pain (Severe 7-10) ondansetron: 4 mg, IV Push, Q6H, PRN: Nausea/Vomiting oxyCODONE: 10 mg, Oral, Q8H, PRN: Pain (Severe 7-10) oxyCODONE: 5 mg, Oral, Q4H, PRN: Pain (Moderate 4-6) pantoprazole: 40 mg, Oral, Daily Documented Medications Documented Flonase: 1 [place], Nasal, BID, 0 Refill(s) Florastor 250 mg [...] oral tablet, extended release: 1 Tab, Oral, [id number], 0 Refill(s) cyanocobalamin: 2,500 mcg, Oral, Daily, 0 Refill(s) fentaNYL 25 mcg/hr transdermal film, extended release: 25 mcg/Hr, Topical, [id number], 0 Refill(s) furosemide: 20 mg, Oral, At [...] rOPINIRole: 0.25 mg, Oral, BID, 0 Refill(s), Medications (23) Active Scheduled: (13) aspirin 81 mg chew tab 81 mg 1 Tab, Oral, At Bedtime buPROPion XL 150 mg tab 150 mg 1 Tab, Oral, Daily cyanocobalamin 2500 mcg SL tab 2,500 mcg 1 Tab, Oral, Daily docusate sodium 100 mg cap 100 mg 1 Cap, Oral, BID fentaNYL 25 mcg/hr 72 hr patch 1 Patch, Topical, [id number] fluticasone 0.05% nasal spray 1 [place], Nasal, BID furosemide 20 mg tab 20 mg 1 Tab, Oral, At Bedtime gabapentin 300 mg cap 300 mg 1 Cap, Oral, BID heparin 5,000 units/1 mL inj 5,000 Units 1 mL, SubCutaneous, Q8H lidocaine 4% patch 1 Patch, TransDermal, Daily [...] cap 250 mg 1 Cap, Oral, Daily Problem list: Medical Allergic rhinitis / SNOMED CT 825351253 / Confirmed Asthma / SNOMED CT 743520165 / Confirmed Back pain / SNOMED CT 4303252228 / Confirmed Back problem//multiple fractures / SNOMED CT 856061913 / Confirmed BBB (bundle branch block)//right / SNOMED CT 83257540 / Confirmed Cataract//extraction / SNOMED CT 802442690 / Confirmed Chronic diarrhea / SNOMED CT 909918264 / Confirmed Difficulty walking//walker / SNOMED CT 8012916684 / Confirmed Dental disorder//bottom teeth extraction//stitches intact / SNOMED CT 8891046669 / Confirmed Dizziness / SNOMED CT 1845355197 / Confirmed Fistula//colon//bladder//vaginia / SNOMED CT 5316809912 / Confirmed Ribs, multiple fractures / SNOMED CT 0784913 / Confirmed GERD - Gastro-esophageal reflux disease / SNOMED CT 8843378483 / Confirmed History of obstructive sleep apnea / IMO 63503743 / Confirmed Hypotension / SNOMED CT 122397198 / Confirmed Skin cancer / SNOMED CT 0582692425 / Confirmed Multiple myeloma / SNOMED CT 660112635 / Confirmed Restless legs syndrome / SNOMED CT 25597706 / Confirmed Sinusitis / SNOMED CT 82999888 / Confirmed Sleep apnea//no machine / SNOMED CT 118611139 / Confirmed Urinary tract infection//jul 2018 / SNOMED CT 594612935 / Confirmed, Active Problems (21) Allergic rhinitis Asthma Back pain Back problem//multiple fractures BBB (bundle branch block)//right Cataract//extraction Chronic diarrhea Dental disorder//bottom teeth extraction//stitches intact Difficulty walking//walker Dizziness Fistula//colon//bladder//vaginia GERD - Gastro-esophageal reflux disease History of obstructive sleep apnea Hypotension Multiple myeloma Restless legs syndrome Ribs, multiple fractures Sinusitis Skin cancer Sleep apnea//no machine Urinary tract infection//jul 2018 Histories Past Medical History: No active or resolved past medical history items have been selected or recorded. Family History: No family history items have been selected or recorded. Procedure history: left shoulder surgery in 2014 at 65 [...] hrs) Last Charted Minimum Maximum Temp 97.8 (DEC 23 06:00) 97.8 (DEC 23 06:00) 98.1 (DEC 22 18:25) Mon HR 76 (DEC 23 08:38) 66 (DEC 23 02:19) 85 (DEC 22 20:19) Resp Rate 16 (DEC 23 06:00) 16 (DEC 23 02:19) 17 (DEC 22 20:19) SBP 115 (DEC 23 06:00) 97 (DEC 22 23:00) 115 (DEC 23 06:00) DBP L 49 (DEC 23 06:00) L 36 (DEC 22 23:00) L 51 (DEC 22 11:15) MAP 65 (DEC 23 06:00) 50 (DEC 22 23:00) 65 (DEC 22 18:25) SpO2 97 (DEC 23 08:38) 97 (DEC 23 08:38) 100 (DEC 22 18:25) General: Alert and oriented, No acute distress. Eye: Normal conjunctiva, Vision unchanged. HENT: Normocephalic, Normal hearing, Oral mucosa is moist, No pharyngeal erythema. Neck: Supple, Non-tender, No carotid bruit, No jugular venous distention, No lymphadenopathy, No thyromegaly. Respiratory: Lungs are clear to auscultation, Respirations are non-labored, Breath sounds are equal, Symmetrical chest wall expansion, No chest wall tenderness. Cardiovascular: No gallop. Gastrointestinal: Soft, Non-tender, Non-distended, Normal bowel sounds, No organomegaly, Ileostomy bag is full. Musculoskeletal: No tenderness, No swelling. Integumentary: No pallor, No rash. Neurologic: Alert, Normal motor function, No focal deficits, Cranial Nerves II-XII are grossly intact. Cognition and Speech: Oriented, Functional cognition intact. Psychiatric: Cooperative, Appropriate mood & affect. Review / Management Results review: Labs (Last four charted values) WBC 7.2 (DEC 23) H 11.8 (DEC 22) 8.6 (DECEMBER 17) HB L 8.4 (DEC 23) L 10.0 (DEC 22) 11.4 (DEC 21) 12.1 (DECEMBER 17) HCT L 26.4 (DEC 04) L 31.8 (DEC 03) 36.4 (DEC 02) 37.8 (DECEMBER 17) Plt 208 (DEC 04) 290 (DEC 03) 318 (DECEMBER 17) Na L 133 (DEC 04) L 132 (DEC 03) L 132 (DEC 03) 139 (DECEMBER 17) K 4.6 (DEC 04) 5.1 (DEC 04) 4.7 (DEC 03) 5.0 (DEC 03) Cl 104 (DEC 04) L 101 (DEC 03) 102 (DEC 03) L 100 (DECEMBER 17) CO2 22 (DEC 04) 21 (DEC 03) 24 (DEC 03) H 34 (DECEMBER 17) BUN 15 (DEC 04) 15 (DEC 03) 14 (DEC 03) 11 (DECEMBER 17) Cr H 2.00 (DEC 04) H 2.30 (DEC 03) H 2.30 (DEC 03) H 1.40 (DECEMBER 17) Glu R 87 (DEC 04) 99 (DEC 03) 106 (DEC 03) H 136 (DEC 02) Ca L 7.9 (DEC 04) 8.6 (DEC 03) 8.4 (DEC 03) 9.3 (DECEMBER 17) PT 10.1 (DEC 03) INR 1.0 (DEC 03) AST 18 (CAMACHO 04) 29 (DEC 22) 19 (DECEMBER 17) ALT 18 (DEC 23) 22 (DEC 22) 17 (DECEMBER 17) ALK P 106 (DEC 23) 115 (DEC 22) H 166 (DECEMBER 17) T Bili 0.2 (DEC 23) 0.6 (DEC 22) 0.4 (DECEMBER 17) PTN L 4.7 (DEC 23) L 5.0 (DEC 22) 6.7 (DECEMBER 17) ALB L 2.0 (DEC 23) L 2.2 (DEC 22) L 3.0 (DECEMBER 17) . No Radiology Results Found Impression and Plan 1. Chronic kidney disease stage III with a baseline serum creatinine 1.4 mg/dL followed up by Dr. Medina in [place]. I will try to get the records from his office. 2. Acute kidney injury most probably secondary to the use of nonsteroidal anti-inflammatories and Alvarez 2 inhibitors and volume depletion secondary to high output ileostomy. I will keep the patient well hydrated. Serum creatinine started to improve. 3. Hyperkalemia secondary to the use of nonsteroidal anti-inflammatories and acute kidney injury. Continue with the current IV fluids, resolved. 4. Status post ileostomy, continued to monitor intake and output and keep the patient's well-hydrated 5. Multiple myeloma in remission under the care of her local oncologist. She held the Remicade before surgery. 6. Anemia of chronic disease, hemoglobin dropped with hydration, check the iron studies B12 and folates and replenish any deficiencies. documented in this encounter Plan of Treatment Not on file documented as of this encounter Visit Diagnoses Not on filedocumented in this encounter
--- OUTSIDE RECORDS SUMMARY | 2025-02-23 12:34 | XMS_ITS | Encounter Summary ---
Author Organization [employer] ([place], [place], [place], [place]) Address [address] [place] [address] Care Team Providers Care Screen Handler Name Role Phone Unavailable Primary Care Provider Unavailabl e Encounter Details Date Type Department Care Team (Late st Contact Info) Description 12/24/2019 Transcribed Document [facility] [place] [facility] [place] [address] ProviderNuha MD [address] [place] [address] Social History Tobacco Use Types Packs/Day Years Used Date Smoking Tobacco: Never Assessed Comments Unknown Sex and Gender Information Value Date Recorded Sex Assigned at Not on file Legal Sex Female 2:42 PM CDT Gender Identity Not on file Sexual Orientation Not on file documented as of this encounter Miscellaneous Notes * Cerner Conversion Note - Nuha ProviderMD - 12/24/2019 6:17 PM CDT WO Inpatient Documentation Entered On: 12/24/2019 18:20 EDT Performed On: 12/24/2019 18:17 EDT by LONA AQUINO RN WO Admission Date : Admit Date 12/22/2019 06:[address] : Diagnosis (2) 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 Was very positive about caring for Ileostomy. Pt states that PABLITO Rai had taught her how to care for the ostomy and she felt very confident. WOCN able to teach clean caulk and place pouch with possible arpan removal tomorrow. Placed pt in flat red Aby. Extra appliance left at bedside. LONA AQUINO RN - 12/24/2019 18:17 EDT documented in this encounter Plan of Treatment Not on file documented as of this encounter Visit Diagnoses Not on filedocumented in this encounter
--- OUTSIDE RECORDS SUMMARY | 2025-02-23 12:34 | XMS_ITS | Encounter Summary ---
Author Organization [employer] ([place], [place], [place], [place]) Address [address] [place] [address] Care Team Providers Care Integrated Circuit Layout Designer Name Role Phone Unavailable Primary Care Provider Unavailabl e Encounter Details Date Type Department Care Team (Late st Contact Info) Description 05/27/2020 Transcribed Document [facility] Family Medicine [address] [place] [address] ProviderNuha MD [address] [place] [address] Social History Tobacco Use Types Packs/Day Years Used Date Smoking Tobacco: Never Assessed Comments Unknown Sex and Gender Information Value Date Recorded Sex Assigned at Not on file Legal Sex Female 2:42 PM CDT Gender Identity Not on file Sexual Orientation Not on file documented as of this encounter Miscellaneous Notes * Cerner Conversion Note - Historical ProviderMD - 05/27/2020 12:00 AM SOFTWARE INTEGRATOR Pain Assessment Entered On: 05/27/2020 2:48 EST Performed On: 05/27/2020 1:13 EST by Ciarra Espino RN Intervention Information: oxyCODONE Performed by Ciarra Espino RN on 05/27/2020 00:13:00 EST oxyCODONE,10mg Oral Pain Assessment Pain Assessment : Follow-up assessment Pain Scale Goal : 3 Pain Scale Used : 0-10 Scale Ciarra Espino RN - 05/27/2020 2:48 EST Pain Scale Intensity : 0 Ciarra Espino RN - 05/27/2020 2:48 EST Image 4 - Images currently included in the form version of this document have not been included in the text rendition version of the form. documented in this encounter Plan of Treatment Not on file documented as of this encounter Visit Diagnoses Not on filedocumented in this encounter
--- OUTSIDE RECORDS SUMMARY | 2025-02-23 12:34 | XMS_ITS | Encounter Summary ---
Author Organization [employer] ([place], [place], [place], [place]) Address [address] [place] [address] Care Team Providers Care Administrative Analyst Name Role Phone Unavailable Primary Care Provider Unavailabl e Encounter Details Date Type Department Care Team (Late st Contact Info) Description 12/24/2019 Transcribed Document [facility] [place] [address] [place] [address] ProviderNuha MD [address] [place] [address] Social History Tobacco Use Types Packs/Day Years Used Date Smoking Tobacco: Never Assessed Comments Unknown Sex and Gender Information Value Date Recorded Sex Assigned at Not on file Legal Sex Female 2:42 PM CDT Gender Identity Not on file Sexual Orientation Not on file documented as of this encounter Miscellaneous Notes * Cerner Conversion Note - Historical ProviderMD - 12/24/2019 5:00 AM CDT Chart Check - Review Order Profile Entered On: 12/24/2019 4:16 EDT Performed On: 12/24/2019 5:00 EDT by Kavita Burrell Lpn Chart Check Powerplans Initiated/Discontinued as Appropriate : Yes All Active Orders Reviewed : Yes Kavita Burrell Lpn - 12/24/2019 4:15 EDT documented in this encounter Plan of Treatment Not on file documented as of this encounter Visit Diagnoses Not on filedocumented in this encounter
--- OUTSIDE RECORDS SUMMARY | 2025-02-23 12:34 | XMS_ITS | Referral Summary ---
Author Organization [employer] ([place], [place], [place], [place]) Address [address] [place] [address] Care Team Providers Care Airborne Sensor Specialist Name Role Phone Unavailable Primary Care Provider Unavailabl e Social History Tobacco Use Types Packs/Day Years Used Date Smoking Tobacco: Never Assessed Comments Unknown Sex and Gender Information Value Date Recorded Sex Assigned at Not on file Legal Sex Female 2:42 PM CDT Gender Identity Not on file Sexual Orientation Not on file Plan of Treatment Not on file
--- OUTSIDE RECORDS SUMMARY | 2025-02-23 12:34 | XMS_ITS | Encounter Summary ---
Author Organization [email or web address] ([place], [place], [place], [place]) Address [address] [place] [address] Care Team Providers Care Marble Mason Name Role Phone Unavailable Primary Care Provider Unavailabl e Encounter Details Date Type Department Care Team (Late st Contact Info) Description 12/23/2019 Transcribed Document [facility] [place] Family Medicine [address] [place] [address] ProviderNuha MD [address] [place] [address] Social History Tobacco Use Types Packs/Day Years Used Date Smoking Tobacco: Never Assessed Comments Unknown Sex and Gender Information Value Date Recorded Sex Assigned at Not on file Legal Sex Female 2:42 PM CDT Gender Identity Not on file Sexual Orientation Not on file documented as of this encounter Miscellaneous Notes * Cerner Conversion Note - Nuha ProviderMD - 12/23/2019 8:48 AM CDT Consult Phone Call Documentation Entered On: 12/23/2019 9:02 EDT Performed On: 12/23/2019 8:48 EDT [facility] Phone Call for Consults Consult Phone Call/Page Attempt : First call Consult Reason : RUSLAN Physician Requesting Consult : ANNELISE DELCID MD-INT Physician Requested for Consult : DAVID JUDD MD-NEP Physician Covering for Consult : SMOOTH Bello MD Date and Time Call Returned : 12/23/2019 9:02 EDT Physician Returning Call : SMOOTH MARTINS MD Consult, Additional Information : spoke to Rhoda Delgadillo Care [facility] Care Coord - 12/23/2019 9:02 EDT documented in this encounter Plan of Treatment Not on file documented as of this encounter Visit Diagnoses Not on filedocumented in this encounter
--- OUTSIDE RECORDS SUMMARY | 2025-02-23 12:34 | XMS_ITS | Encounter Summary ---
Author Organization [email or web address] ([place], [place], [place], [place]) Address [address] [place] [address] Care Team Providers Care Inserter Operator Name Role Phone Unavailable Primary Care Provider Unavailabl e Encounter Details Date Type Department Care Team (Late st Contact Info) Description 12/23/2019 Transcribed Document [facility] [place] Family Medicine [address] [place] [address] ProviderNuha MD [address] [place] [address] Social History Tobacco Use Types Packs/Day Years Used Date Smoking Tobacco: Never Assessed Comments Unknown Sex and Gender Information Value Date Recorded Sex Assigned at Not on file Legal Sex Female 2:42 PM CDT Gender Identity Not on file Sexual Orientation Not on file documented as of this encounter Miscellaneous Notes * Cerner Conversion Note - Historical ProviderMD - 12/23/2019 6:00 PM CDT Pain Assessment Entered On: 12/24/2019 0:01 EDT Performed On: 12/23/2019 19:11 EDT by Kavita Burrell Lpn Intervention Information: acetaminophen Performed by Ambar Rai RN on 12/23/2019 18:11:00 EDT acetaminophen,1000mg Oral Pain Assessment Pain Assessment : Follow-up assessment Pain Scale Goal : 3 Pain Scale Used : 0-10 Scale Kavita Burrell Lpn - 12/24/2019 0:00 EDT Pain Scale Intensity : 1 Kavita Burrell Lpn - 12/24/2019 0:00 EDT Image 4 - Images currently included in the form version of this document have not been included in the text rendition version of the form. documented in this encounter Plan of Treatment Not on file documented as of this encounter Visit Diagnoses Not on filedocumented in this encounter
--- OUTSIDE RECORDS SUMMARY | 2025-02-23 12:34 | XMS_ITS | Encounter Summary ---
Author Organization [employer] ([place], [place], [place], [place]) Address [address] [place] [address] Care Team Providers Care Real Estate Transaction Coordinator Name Role Phone Unavailable Primary Care Provider Unavailabl e Encounter Details Date Type Department Care Team (Late st Contact Info) Description 12/23/2019 Transcribed Document [facility] [place] [address] [place] [address] ProviderNuha MD [address] [place] [address] Social History Tobacco Use Types Packs/Day Years Used Date Smoking Tobacco: Never Assessed Comments Unknown Sex and Gender Information Value Date Recorded Sex Assigned at Not on file Legal Sex Female 2:42 PM CDT Gender Identity Not on file Sexual Orientation Not on file documented as of this encounter Miscellaneous Notes * Cerner Conversion Note - Nuha ProviderMD - 12/23/2019 3:52 PM CDT Initial Discharge Planning Entered On: 12/23/2019 15:56 EDT Performed On: 12/23/2019 15:52 EDT by BECK FINLEY Manager Service Desk Initial Assessment I Previously Documented Living Environment : No qualifying data available. Living Situation : Home with family care Patient Lives With : Spouse Emergency Contact #1 : mario Emergency Contact #1 Emergency Contact #1 Relationship : spouse Emergency Contact #2 : none Emergency Contact #2 Phone Number : none Emergency Contact #2 Relationship : none Enter Doctors Name : Jenn Rosales Does Patient have PCP Listed? : Yes Legal Guardian : No Is Guardianship Needed : No BECK FINLEY Manager Service Desk - 12/23/2019 15:52 EDT Initial Assessment II Sensory and Motor Deficits : None Current Home Treatments and Equipment : Elevated toilet seat, Shower chair, Walker, Wheelchair BECK FINLEY Manager Service Desk - 12/23/2019 15:52 EDT Discharge Needs I Anticipated Discharge Date : 12/25/2019 EDT Anticipated Discharge To, CM : Home with home health Current Home Treatment/Equipment : Current Home Treatment/Equipment No qualifying data available. Post Acute/Home Treatments : None Documentation Status Complete : Yes BECK FINLEY Social Worker - 12/23/2019 15:52 EDT Discharge Needs II Professional Skilled Services : Professional Skilled Services No qualifying data available. Services and Community Resources : Home Health Discharge Options Discussed with Patient : Home Health BECK FINLEY Social Worker - 12/23/2019 15:52 EDT Narrative Note Narrative Note : 69 year old female was admitted for cystoscopy, open low anterior resection with diverting loop ileostomy. Has hx of multple myeloma. Attempted MDR rounds in pts room this am and attempted to visit pt twice this afternoon. Pt had issues with her catheter and and ileostomy on both occasions. Per chart review, pt lives with her , Laci. She has dme listed on this assessment. Will follow up with her regarding HH and whether she has any currently. She would benefit from HH for ileostomy care. Will follow up tomorrow. BECK FINLEY Manager Service Desk - 12/23/2019 15:52 EDT documented in this encounter Plan of Treatment Not on file documented as of this encounter Visit Diagnoses Not on filedocumented in this encounter
--- OUTSIDE RECORDS SUMMARY | 2025-02-23 12:34 | XMS_ITS | Encounter Summary ---
Author Organization [employer] ([place], [place], [place], [place]) Address [address] [place] [address] Care Team Providers Care Grain Cleaner Name Role Phone Unavailable Primary Care Provider Unavailabl e Encounter Details Date Type Department Care Team (Late st Contact Info) Description 12/23/2019 Transcribed Document [facility] [place] [facility] [place] [address] ProviderNuha MD [facility] [place] [address] Social History Tobacco Use Types Packs/Day Years Used Date Smoking Tobacco: Never Assessed Comments Unknown Sex and Gender Information Value Date Recorded Sex Assigned at Not on file Legal Sex Female 2:42 PM CDT Gender Identity Not on file Sexual Orientation Not on file documented as of this encounter Miscellaneous Notes * Cerner Conversion Note - Nuha ProviderMD - 12/23/2019 12:04 PM CDT Treatment Intervention, PT Entered On: 12/24/2019 11:19 EDT Performed On: 12/24/2019 11:21 EDT by PETRA BOYD PT General Information, PT Patient Orders : Order Date Order Ordering 12/22/2019 14:28 PT Evaluation and Treatment Ordered By: ANNELISE DELCID MD-INT 12/23/2019 12:04 PT Additional Treatment Ordered By: JENNIFER DIAZ PT Active Diagnoses : No Qualifying Diagnoses Admission Date : 12/22/2019 06:28 Personal Devices : Personal Devices No Devices Recorded Assistive Devices : Assistive Devices No Devices Recorded PETRA BOYD PT - 12/24/2019 11:19 EDT Visit Type, PT : Treatment Note Therapy Diagnosis, PT : impaired mobility s/p LAR with loop ileostomy PETRA BOYD PT - 12/24/2019 11:13 EDT General Status Treatment End Time : 12/24/2019 11:21 EDT Treatment Time : 25 Minute(s) Actual Treatment Time : 23 Minute(s) PETRA BOYD PT - 12/24/2019 11:19 EDT Patient Received Status : Up in chair Treatment Start Time : 12/24/2019 10:56 EDT Patient Left Status : Up in chair, RN/PCT informed, All needs met and within reach PETRA BOYD PT - 12/24/2019 11:13 EDT Functional Mobility Mobility Grid Sit to Stand : Rehab Modified independence Stand to Sit : Rehab Modified independence PETRA BOYD PT - 12/24/2019 11:13 EDT Gait Training/Assessment, PT Weight Bearing Status : Full Gait Assistance Level : Independent, modified Walking Distance : 390' Ambulatory Devices : Gait belt, Walker, front wheel Gait Deviations : No PETRA BOYD PT - 12/24/2019 11:13 EDT Edu Topics Physical Therapy Education Grid Gait Training : Returns demonstration Transfer Training : Returns demonstration Use of Assistive Device : Returns demonstration PETRA BOYD PT - 12/24/2019 11:13 EDT Plan of Care, PT PT Tx Plan/Goals Established w Patient : Yes PETRA BOYD PT - 12/24/2019 11:13 EDT Senior Living Goals Mobility/Bed Mobility LTG PT Grid Goal #1 Goal #2 Activity : Supine to sit Sit to stand Assist : Independent, complete Independent, modified Equipment : Belt, gait, Walker, front wheel Date to Meet : 01/06/2020 EDT 01/06/2020 EDT Goal Status : Intial Goal Goal met Date Met : 12/24/2019 EDT PETRA BOYD PT - 12/24/2019 11:13 EDT PETRA BOYD PT - 12/24/2019 11:13 EDT Ambulation LTG Grid Goal #1 Device : Walker, front wheel Distance : 400 feet Assist : Supervision or set-up Date to Meet : 01/06/2020 EDT Goal Status : Goal met Date Met : 12/24/2019 EDT PETRA BOYD PT - 12/24/2019 11:13 EDT Treatment Note Assessment : The patient requires no assistance with sit><stand or the use of a rolling walker for ambulatiion as is her habit. She appears safe for dischrage home at any time from a mobility standpoint. Home health appears optional as the patient desires. Plan for Treatment : cont poc 1-2 days PETRA BOYD PT - 12/24/2019 11:19 EDT Subjective Comment : agreed to PT PETRA BOYD PT - 12/24/2019 11:13 EDT Pain Assessment Pain Scaled Used : 0-10 Pain scale Pain Score Pre-Intervention : 5 Pain Score During-Intervention : 5 Pain Score Post-Intervention. : 5 Location : Back Onset : Constant Pain Comment : pain spikes with coughing PETRA BOYD, PT - 12/24/2019 11:19 EDT Image 1 - Images currently included in the form version of this document have not been included in the text rendition version of the form. Anticipated Discharge Needs, OT/PT Anticipated Discharge to : Home, with family care PETRA BOYD, PT - 12/24/2019 11:[address] [facility] PT Charges PT Ther Activities Ea 15 Min : 1 Gait Training Each 15 Min : 1 PETRA BOYD PT - 12/24/2019 11:19 EDT documented in this encounter Plan of Treatment Not on file documented as of this encounter Visit Diagnoses Not on filedocumented in this encounter
--- OUTSIDE RECORDS SUMMARY | 2025-02-23 12:34 | XMS_ITS | Encounter Summary ---
Author Organization [employer] ([place], [place], [place], [place]) Address [address] [place] [address] Care Team Providers Care Metallurgical Lab Technician Name Role Phone Unavailable Primary Care Provider Unavailabl e Encounter Details Date Type Department Care Team (Late st Contact Info) Description 12/24/2019 Transcribed Document [facility] Radiology [address] [place] [address] Nba Delcid MD [address] [place] [address] Social History Tobacco Use Types Packs/Day Years Used Date Smoking Tobacco: Never Assessed Comments Unknown Sex and Gender Information Value Date Recorded Sex Assigned at Not on file Legal Sex Female 2:42 PM CDT Gender Identity Not on file Sexual Orientation Not on file documented as of this encounter Miscellaneous Notes * Cerner Conversion Note - Nba Delcid MD - 12/24/2019 9:42 AM EDT Patient: NATE KRAMER Age: 69 years Sex: Female : 1950 Associated Diagnoses: None Author: NBA DELCID MD-INT Subjective Chief complaint. Monday, December 23, 2019. Patient really without complaints this morning she does have ileostomy but it's leaking there's stool on her abdomen. No fevers or chills. No shortness of breath coughing wheezing. No dysuria hematuria. Coleman catheter placed but apparently came out to the nurses replacing. She states usually uses a lidocaine patch. December. Patient states that they fixed her ileostomy bag but apparently there are some issues with her close to continue her skin and this was causing leaking but this is resolved. She does have good stool output dark liquidy and green. No nausea vomiting. No chest pain palpitations. No shortness breath coughing wheezing. Patient states she has hopes to go home tomorrow. She is very pleasant sharp lady she states that she is reading a book as about [employer] that is making her feel better. She states that she has chronic back pain she's given her fentanyl patch as well as oxycodone. Apparently she is given some IV morphine when necessary for pain she wants to know if I can send her home with a prescription for IV morphine explain that is really not an option but she does have oxycodone which is very similar to his opiate the same type of medication and explained that the oxycodone does take longer to okay can but also last longer (probably better choice long-term. She feels that her postoperative pain is fine it's more of her chronic back pain which bothers her. She's been on fentanyl patches at least 3 years. Review of Systems Constitutional: Decreased activity, No fever, No chills. Respiratory: No shortness of breath, No cough. Cardiovascular: No chest pain, No palpitations. Gastrointestinal: Ileostomy output, No nausea, No vomiting, No diarrhea, No constipation. Genitourinary: No dysuria. Neurologic: Alert and oriented X4, No confusion. Psychiatric: Chronic opiate dependency chronic back pain, No anxiety, No depression. Health Status Allergies: Allergic Reactions (Selected) Severity Not Documented Meperidine- Hypotension. Sulfa drugs- Hives., Allergies (2) Active Reaction meperidine Hypotension sulfa drugs Hives Problem list: Medical Allergic rhinitis / SNOMED CT 256179159 / Confirmed Asthma / SNOMED CT 763587784 / Confirmed Back pain / SNOMED CT 3732173499 / Confirmed Back problem//multiple fractures / SNOMED CT 570406260 / Confirmed BBB (bundle branch block)//right / SNOMED CT 37925301 / Confirmed Cataract//extraction / SNOMED CT 965072610 / Confirmed Chronic diarrhea / SNOMED CT 844559401 / Confirmed Difficulty walking//walker / SNOMED CT 6967600456 / Confirmed Dental disorder//bottom teeth extraction//stitches intact / SNOMED CT 0903587940 / Confirmed Dizziness / SNOMED CT 1863738126 / Confirmed Fistula//colon//bladder//vaginia / SNOMED CT 1004539016 / Confirmed Ribs, multiple fractures / SNOMED CT 7935711 / Confirmed GERD - Gastro-esophageal reflux disease / SNOMED CT 0008221014 / Confirmed History of obstructive sleep apnea / IMO 15623887 / Confirmed Hypotension / SNOMED CT 002821539 / Confirmed Skin cancer / SNOMED CT 8547757093 / Confirmed Multiple myeloma / SNOMED CT 588666628 / Confirmed Restless legs syndrome / SNOMED CT 63982340 / Confirmed Sinusitis / SNOMED CT 02458400 / Confirmed Sleep apnea//no machine / SNOMED CT 146914048 / Confirmed Urinary tract infection//jul 2018 / SNOMED CT 271090493 / Confirmed, Active Problems (21) Allergic rhinitis [...] RT_Q6H, PRN: Shortness of Breath Flonase: 1 [place], Nasal, BID Florastor: 250 mg, Oral, Daily, [...] transdermal film, extended release: 1 Patch, Topical, [id number] furosemide: 20 mg, Oral, At Bedtime gabapentin: [...] Oral, Daily Documented Medications Documented Flonase: 1 [place], Nasal, BID, 0 Refill(s) Florastor 250 mg [...] oral tablet, extended release: 1 Tab, Oral, [id number], 0 Refill(s) cyanocobalamin: 2,500 mcg, Oral, Daily, 0 Refill(s) fentaNYL 25 mcg/hr transdermal film, extended release: 25 mcg/Hr, Topical, E42MFak, 0 Refill(s) furosemide: 20 mg, Oral, At [...] release 150 mg = 1 Tab, Oral, [id number] cyanocobalamin 2,500 mcg, Oral, Daily fentaNYL 25 mcg/hr transdermal film, extended release 25 mcg/Hr, Topical, [id number] Flonase 1 Wildwood, Nasal, BID Florastor 250 mg oral capsule [...] ZyrTEC-D 5-120 mg, Oral, Daily , Medications (23) Active Scheduled: (13) aspirin 81 mg chew tab 81 mg 1 Tab, Oral, At Bedtime buPROPion XL 150 mg tab 150 mg 1 Tab, Oral, Daily cyanocobalamin 2500 mcg SL tab 2,500 mcg 1 Tab, Oral, Daily docusate sodium 100 mg cap 100 mg 1 Cap, Oral, BID fentaNYL 25 mcg/hr 72 hr patch 1 Patch, Topical, [id number] fluticasone 0.05% nasal spray 1 [place], Nasal, BID furosemide 20 mg tab 20 [...] 24 hrs) Last Charted Minimum Maximum Temp 98 (DEC 23 11:00) 97.8 (DEC 23 06:00) 98.1 (DEC 22 18:25) Mon HR 76 (DEC 23 11:00) 66 (DEC 23 02:19) 85 (DEC 22 20:19) Resp Rate 16 (DEC 23 11:00) 16 (DEC 23 02:19) 17 (DEC 22 20:19) SBP 99 (DEC 23 11:00) 97 (DEC 22 23:00) 115 (DEC 23 06:00) DBP L 39 (DEC 23 11:00) L 36 (DEC 22 23:00) L 51 (DEC 22 18:25) MAP 54 (DEC 23 11:00) 50 (DEC 22 23:00) 65 (DEC 22 18:25) SpO2 100 (DEC 23 11:00) 97 (DEC 23 08:38) 100 (DEC 22 18:25) Physical Examination VS/Measurements Vitals Signs (last 24 hrs) Last Charted Minimum Maximum Temp 98 (DEC 23 11:00) 97.8 (DEC 23 06:00) 98.1 (DEC 22 18:25) Mon HR 76 (DEC 23 11:00) 66 (DEC 23 02:19) 85 (DEC 22 20:19) Resp Rate 16 (DEC 23 11:00) 16 (DEC 23 02:19) 17 (DEC 22 20:19) SBP 99 (DEC 23 11:00) 97 (DEC 22 23:00) 115 (DEC 23 06:00) DBP L 39 (DEC 23 11:00) L 36 (DEC 22 23:00) L 51 (DEC 22 18:25) MAP 54 (DEC 23 11:00) 50 (CAMACHO 03 23:00) 65 (DEC 22 18:25) SpO2 100 (DEC 23 11:00) 97 (DEC 23 08:38) 100 (DEC 22 [...] Normal sensory. Psychiatric: Cooperative, Appropriate mood & affect, Opiate dependency fentanyl patch for years. History of multiple myeloma. Review / Management Results review: Labs (Last four charted values) WBC 7.2 (DEC 23) H 11.8 (DEC 22) 8.6 (DECEMBER 17) HB L 8.4 (DEC 23) L 10.0 (DEC 22) 11.4 (DEC 21) 12.1 (DECEMBER 17) HCT L 26.4 (DEC 23) L 31.8 (DEC 03) 36.4 (DEC 02) 37.8 (DECEMBER 17) Plt 208 (DEC 04) 290 (DEC 03) 318 (DECEMBER 17) Na L 133 (DEC 04) L 132 (DEC 03) L 132 (DEC 03) 139 (DECEMBER 17) K 4.6 (DEC 04) 5.1 (CAMACHO 04) 4.7 (DEC 03) 5.0 (DEC 03) [...] (DEC 03) AST 18 (CAMACHO 04) 29 (CAMACHO 03) 19 (DECEMBER 17) ALT 18 (DEC 23) [...] failure postoperative. Creatinine 1.4 increased to 2.3. to 2.0 IV fluids. Renal consult. sees dr wray as outpatient Hyper kalemia. Hypokalemia 2.2 increased to 5.8. to 4.6 Serial checks Multpile myeloma -oncologist in [facility] dvt prophylaxis- hepatrin 5000 q 8 hr [...] Also IV fluids and Coleman catheter placement. December. 25 minute spent on follow-up this very delightful 69-year-old lady on chronic pain medication with fentanyl patch oxycodone which she states she takes at home for number of years. She states that she has good stool outputout ofher ileostomy I Green liquid consistency a little bit more formed minute was yesterday. She had issues with ileostomy yesterday the bag wasn't making a tight seal and psoas leaking around but now it's doing great. Recheck a CBC and CMP in the morning. Wanelo[employer] system used. Computer program makes numerous spelling grammar mistakes. If you have any questions or concerns do not hesitate call Dr. Nba Garcia at cell phone number [phone]. documented in this encounter Plan of Treatment Not on file documented as of this encounter Visit Diagnoses Not on filedocumented in this encounter
--- OUTSIDE RECORDS SUMMARY | 2025-02-23 12:34 | XMS_ITS | Encounter Summary ---
Author Organization [employer] ([place], [place], [place], [place]) Address [address] [place] [address] Care Team Providers Care Manufacturing Test Engineer Name Role Phone Unavailable Primary Care Provider Unavailabl e Encounter Details Date Type Department Care Team (Late st Contact Info) Description 05/27/2020 Transcribed Document [facility] [place] Family Medicine [address] [place] [address] ProviderNuha MD [address] [place] [address] Social History Tobacco Use Types [...] - Historical ProviderMD - 05/27/2020 2:[address] [facility] PT Charges Entered On: 05/27/2020 14:09 EST Performed On: 05/27/2020 14:08 EST by MARLO SANTANA, PT [facility] Charges Physical Therapy Screen : 1 MARLO SANTANA PT - 05/27/2020 14:08 EST Electronically signed by [facility] Conversion Sales Planning Manager Cerner at 11/05/2022 5:50 PM CDT documented in this encounter Plan of Treatment Not on file documented as of this encounter Visit Diagnoses Not on filedocumented in this encounter
--- OUTSIDE RECORDS SUMMARY | 2025-02-23 12:34 | XMS_ITS | Encounter Summary ---
Author Organization [email or web address] ([place], [place], [place], [place]) Address [address] [place] [address] Care Team Providers Care Specialist Physician Name Role Phone Unavailable Primary Care Provider Unavailabl e Encounter Details Date Type Department Care Team (Late st Contact Info) Description 12/23/2019 Transcribed Document [facility] [place] [facility] [address] ProviderNuha MD [address] [place] [address] Social History Tobacco Use Types Packs/Day Years Used Date Smoking Tobacco: Never Assessed Comments Unknown Sex and Gender Information Value Date Recorded Sex Assigned at Not on file Legal Sex Female 2:42 PM CDT Gender Identity Not on file Sexual Orientation Not on file documented as of this encounter Miscellaneous Notes * Cerner Conversion Note - Historical ProviderMD - 12/23/2019 1:27 PM CDT Treatment Intervention, OT Entered On: 12/25/2019 11:26 EDT Performed On: 12/25/2019 9:50 EDT by MARISELA MOSES OTR/John General Information, OT Visit Type, OT : Treatment Note Patient Orders : Order Date Order Ordering 12/22/2019 14:28 OT Evaluation and Treatment Ordered By: ANNELISE DELCID MD-INT 12/23/2019 13:27 Occupational Therapy Additional Tx Ordered By: Active Diagnoses : No Qualifying Diagnoses Therapy Diagnosis, OT : Decline in ADLs s/p colon resection, low anterior. Hx multiple myeloma and chronic pain. Back pain on eval. Admission Date : 12/22/2019 06:28 Co-treated by, OT : Physical Therapist Personal Devices : Personal Devices No Devices Recorded Assistive Devices : Assistive Devices No Devices Recorded MARISELA MOSES OTR/L - 12/25/2019 11:22 EDT General Status Patient Received Status : Up in chair Treatment Start Time : 12/25/2019 9:38 EDT Patient Left Status : Up in chair, All needs met and within reach RN/PCT Informed Comment : RN ok/d Treatment End Time : 12/25/2019 9:50 EDT Treatment Time : 12 Minute(s) MARISELA MOSES OTR/John - 12/25/2019 11:22 EDT Self Care/Home Management, OT Upper Body Dressing Assist Level, OT : Independent, modified Lower Body Dressing Assist Level, OT : Independent, modified Toilet Transfer Assist Level : Supervision or set-up MARISELA MOSES OTR/John - 12/25/2019 11:22 EDT Functional Mobility Mobility Grid Sit to Stand : Rehab Modified independence Bed to Chair : Supervision/set-up Stand to Sit : Rehab Modified independence MARISELA MOSES OTR/John - 12/25/2019 11:22 EDT Cognitive Treatment, OT Orientation : Oriented x 4 MARISELA MOSES OTR/John - 12/25/2019 11:22 EDT Plan of Care, OT OT Tx Plan/Goals Established w Patient : Yes MARISELA MOSES OTR/John - 12/25/2019 11:22 EDT Half-Way Goals, OT Grooming LTG Grid Goal #1 Activity : Grooming Assist : Independent, modified Date to Meet : 01/06/2020 EDT Goal Status : Initial goal MARISELA MOSES OTR/John - 12/25/2019 11:22 EDT Bathing LTG Grid Goal #1 Activity : Bathing Assist : Independent, modified Date to Meet : 01/06/2020 EDT Goal Status : Initial goal MARISELA MOSES OTR/John - 12/25/2019 11:22 EDT Dressing, Lower Body LTG Grid Goal #1 Activity : Dressing, Lower Body Assist : Independent, modified Date to Meet : 01/06/2020 EDT Goal Status : Goal met Date Met : 12/25/2019 EDT MARISELA MOSES OTR/John - 12/25/2019 11:22 EDT Treatment Note Subjective Comment : Pt was agreeable Patient's Response to Treatment : Pt tolerated tx well Additional Objective Information : Pt was found sitting up in chair. Pt was mod I for lower body dressing and sit to stand. pt was supervision for ambulation via RWX. Pt was mod I for stand to sit. Pt was left sitting up in chair with all needs met and call light within reach. Assessment : Pt is progressing towards goals, pt met lower body dressing goal. Plan for Treatment : Cont OT POC MARISELA MOSES OTR/John - 12/25/2019 11:[address] [facility] OT Charges OT Ther Activities Ea 15 Min : 1 MARISELA MOSES OTR/John - 12/25/2019 11:22 EDT documented in this encounter Plan of Treatment Not on file documented as of this encounter Visit Diagnoses Not on filedocumented in this encounter
--- OUTSIDE RECORDS SUMMARY | 2025-02-23 12:34 | XMS_ITS | Encounter Summary ---
Author Organization [employer] ([place], [place], [place], [place]) Address [address] [place] [address] Care Team Providers Care Adhesive Bonding Machine Operator Name Role Phone Unavailable Primary Care Provider Unavailabl e Encounter Details Date Type Department Care Team (Late st Contact Info) Description 05/27/2020 Transcribed Document [facility] Radiology [address] [place] [address] Stephanie Zhang MD [address] [place] [address] Social History Tobacco Use Types Packs/Day Years Used Date Smoking Tobacco: Never Assessed Comments Unknown Sex and Gender Information Value Date Recorded Sex Assigned at Not on file Legal Sex Female 2:42 PM CDT Gender Identity Not on file Sexual Orientation Not on file documented as of this encounter Miscellaneous Notes * Cerner Conversion Note - Stephanie Zhang MD - 05/27/2020 12:44 PM EST Patient: NATE KRAMER Age: 69 Years Sex: Female : 1950 Admit Date 05/26/2020 16:08 Discharge Date 05/27/2020 Primary Care Provider THAD CORTEZ MD[facility] Discharge Diagnosis 1. Life-threatening hyperkalemia, improved 2. Acute kidney injury top of chronic kidney disease 3. Insulin induced hypoglycemia, resolved 4. History of colovesical fistula status post ileostomy Procedures None Studies None Reason for Hospitalization Hyperkalemia Hospital Course This is a 69 years old female patient with significant past medical history of colovaginal fistula and pelvic and abdominal abscess status post colectomy and ileostomy placement in the past, patient presented today to the hospital for preop evaluation for ileostomy takedown this coming Saturday, patient was sick to her stomach this morning and having nausea and vomiting, kidney function test was ordered, patient noted to have worsening acute kidney function with increased creatinine 1.8 and severe life-threatening hyperkalemia of potassium 7.5, patient was transferred to the emergency department, repeated potassium was 7.4, EKG showed peaked T wave, Dr. JUDD her honing machine try out setter was contacted, hyper kalemia protocol was started, patient was given IV insulin regular with D50, patient become hypoglycemic, another amp of D50 was pushed and D5 half-normal saline was started, potassium repeat was 4.5, patient will be admitted for further evaluation and treatment. Patient continues on IV fluid with D5 half-normal, blood glucose improved, hyperkalemia improved and stabilized, patient monitored in the intensive care unit, patient cleared by nephrology to be discharged home and to stop her potassium supplement and follow-up in 1 week with nephrology, patient will contact Dr. Decker office to confirm her appointment for her surgery, patient was hemodynamically stable at time of discharge. Vital Signs T: 36.7 ??C TMIN: 36 ??C TMAX: 36.7 ??C HR: 86(Monitored) RR: 26 BP: 122/58 SpO2: 98% HT: 160.02 cm WT: 73.64 kg BMI: 28.8 Oxygen Settings (Last) Oxygen Therapy Mode: Room air (05/27/20 08:00:00) Physical Exam Alert and oriented Chest clear to auscultation Abdomen soft nontender Discharge Disposition Home Discharge Follow Up Follow up with primary care provider - Within 1 week DAVID JUDD - Within 1 week Discharge Medications (20) Active acetaminophen/butalbital/caffeine 325 mg-50 mg-40 mg oral tablet 1 Tab, PRN, Oral, Q4H aspirin 81 mg oral tablet, chewable 81 mg = 1 Tab, Oral, Daily buPROPion 150 mg/24 hours (XL) oral tablet, extended release 150 mg = 1 Tab, Oral, Daily fentaNYL 37.5 mcg/hr transdermal film, extended release 1 Patch, Topical, [id number] ferrous sulfate 325 mg (65 mg elemental [...] 1,000 mcg = 1 Tab, Oral, Daily Code Status Start: 05/26/20 16:34:00 EST, Full Code, Continuous Order Condition on Discharge Stable Consulting Physicians DAVID JUDD MD-NEP - Hyperkalemia WOLF SHORT MD-NEP Time Spent on Discharge Time spent 35 minutes documented in this encounter Plan of Treatment Not on file documented as of this encounter Visit Diagnoses Not on filedocumented in this encounter
--- OUTSIDE RECORDS SUMMARY | 2025-02-23 12:34 | XMS_ITS | Encounter Summary ---
Author Organization [employer] ([place], [place], [place], [place]) Address [address] [place] [address] Care Team Providers Care Conference Services Manager Name Role Phone Unavailable Primary Care Provider Unavailabl e Encounter Details Date Type Department Care Team (Late st Contact Info) Description 12/23/2019 Transcribed Document [facility] [place] Family Medicine [facility] [place] [address] ProviderNuha MD [address] [place] [address] Social History Tobacco Use Types Packs/Day Years Used Date Smoking Tobacco: Never Assessed Comments Unknown Sex and Gender Information Value Date Recorded Sex Assigned at Not on file Legal Sex Female 2:42 PM CDT Gender Identity Not on file Sexual Orientation Not on file documented as of this encounter Miscellaneous Notes * [employer] Conversion Note - Historical ProviderMD - 12/23/2019 12:00 AM CDT Pain Assessment Entered On: 12/23/2019 0:14 EDT Performed On: 12/23/2019 0:32 EDT by Kavita Burrell Lpn Intervention Information: ketorolac Performed by Kavita Burrell Lpn on 12/23/2019 00:02:00 EDT ketorolac,15mg IV Push,Left Lower Forearm Pain Assessment Pain Assessment : Follow-up assessment Pain Scale Goal : 3 Pain Scale Used : 0-10 Scale Kavita Burrell Lpn - 12/23/2019 0:13 EDT Pain Scale Intensity : 2 Kavita Burrell Lpn - 12/23/2019 0:13 EDT Image 4 - Images currently included in the form version of this document have not been included in the text rendition version of the form. documented in this encounter Plan of Treatment Not on file documented as of this encounter Visit Diagnoses Not on filedocumented in this encounter
--- OUTSIDE RECORDS SUMMARY | 2025-02-23 12:34 | XMS_ITS | Encounter Summary ---
Author Organization [employer] ([place], [place], [place], [place]) Address [address] [place] [address] Care Team Providers Care Java Front End Web Developer Name Role Phone Unavailable Primary Care Provider Unavailabl e Encounter Details Date Type Department Care Team (Late st Contact Info) Description 12/24/2019 Transcribed Document [facility] [place] Family [place] [facility] [place] [address] ProviderNuha MD [address] [place] [address] Social History Tobacco Use Types Packs/Day Years Used Date Smoking Tobacco: Never Assessed Comments Unknown Sex and Gender Information Value Date Recorded Sex Assigned at Not on file Legal Sex Female 2:42 PM CDT Gender Identity Not on file Sexual Orientation Not on file documented as of this encounter Miscellaneous Notes * Cerner Conversion Note - Nuha ProviderMD - 12/24/2019 3:07 PM CDT On Going Discharge Planning Entered On: 12/24/2019 15:10 EDT Performed On: 12/24/2019 15:07 EDT by BECK FINLEY Electrical Manufacturing Engineer Care Management Progress Note Discharge Arrangements : Patient Post-Acute Information Patient Name: NATE KRAMER Gender: Female : [birth year] Age: 69 Years No Post-Acute Placement(s) Listed No Post-Acute Service(s) Listed No [place] Referral(s) Listed Discharge Options Discussed with Patient : Home Health Did you Attend Multidisciplinary Rounds? : Yes BECK FINLEY, Electrical Manufacturing Engineer - 12/24/2019 15:07 EDT Narrative Progress Note Narrative Progress Note : MDR rounds held in pts room. Pt feeling better today. She walked with PT 280 feet. Discussed dc options with pt . She wants to go home with her . She has all the dme she needs at home. She is reluctant to use HH unless she has to. Let her know that with new ileostomy she might want to consider a HH nurse. She said she wants to see how she feels after [facility] works with her and does teaching and then she will decide if she wants HH. Spoke to Diane with [facility] and they will see pt today. CM will follow up with pt tomorrow. Plan is home tomorrow. BECK FINLEY, Electrical Manufacturing Engineer - 12/24/2019 15:07 EDT documented in this encounter Plan of Treatment Not on file documented as of this encounter Visit Diagnoses Not on filedocumented in this encounter
--- OUTSIDE RECORDS SUMMARY | 2025-02-23 12:34 | XMS_ITS | Encounter Summary ---
Author Organization [employer] ([place], [place], [place], [place]) Address [address] [place] [address] Care Team Providers Care Account Manager Sales Representative Name Role Phone Unavailable Primary Care Provider Unavailabl e Encounter Details Date Type Department Care Team (Late st Contact Info) Description 12/23/2019 Transcribed Document [facility] [place] Family [facility] [place] [address] ProviderNuha MD [address] [place] [address] Social History Tobacco Use Types Packs/Day Years Used Date Smoking Tobacco: Never Assessed Comments Unknown Sex and Gender Information Value Date Recorded Sex Assigned at Not on file Legal Sex Female 2:42 PM CDT Gender Identity Not on file Sexual Orientation Not on file documented as of this encounter Miscellaneous Notes * Cerner Conversion Note - Historical ProviderMD - 12/23/2019 7:50 AM CDT Pain Assessment Entered On: 12/23/2019 12:58 EDT Performed On: 12/23/2019 10:09 EDT by Ambar Rai RN Intervention Information: oxyCODONE Performed by Ambar Rai RN on 12/23/2019 09:09:00 EDT oxyCODONE,10mg Oral,Pain (Severe 7-10) Pain Assessment Pain Assessment : [...] the text rendition version of the form. Electronically signed by Renay Ribera Conversion Promotions Firm Accounts Manager Cerner at 11/09/2022 8:42 AM CDT documented in this encounter Plan of Treatment Not on file documented as of this encounter Visit Diagnoses Not on filedocumented in this encounter
--- OUTSIDE RECORDS SUMMARY | 2025-02-23 12:34 | XMS_ITS | Encounter Summary ---
Author Organization [employer] ([place], [place], [place], [place]) Address [address] [place] [address] Care Team Providers Care Fermenter Operator Name Role Phone Unavailable Primary Care Provider Unavailabl e Encounter Details Date Type Department Care Team (Late st Contact Info) Description 05/27/2020 Transcribed Document [facility] [place] [address] [place] [address] ProviderNuha MD [address] [place] [address] Social History Tobacco Use Types Packs/Day Years Used Date Smoking Tobacco: Never Assessed Comments Unknown Sex and Gender Information Value Date Recorded Sex Assigned at Not on file Legal Sex Female 2:42 PM CDT Gender Identity Not on file Sexual Orientation Not on file documented as of this encounter Miscellaneous Notes * Cerner Conversion Note - Historical ProviderMD - 05/27/2020 11:08 AM DISPATCHER TOW TRUCK [facility] Inpatient Documentation Entered On: 05/27/2020 11:08 EST Performed On: 05/27/2020 11:08 EST by LONA AQUINO RN [facility] Admission Date : Admit Date 05/26/2020 16:[address] : Diagnosis (4) Abnormal diagnostic test Hyperkalemia Hyperkalemia Hyperkalemia Reason for [facility]OC[facility] Visit : Initial consult Admitting Diagnosis ST : Reason for Admission hyperkalemia, acute kidney injury [facility] Assessment Summary : Courtes[place] visit with pt independent of changing her pouch. Pt states she has supplies available as well. LONA AQUINO RN - 05/27/2020 11:07 EST documented in this encounter Plan of Treatment Not on file documented as of this encounter Visit Diagnoses Not on filedocumented in this encounter
--- OUTSIDE RECORDS SUMMARY | 2025-02-23 12:34 | XMS_ITS | Encounter Summary ---
Author Organization [employer] ([place], [place], [place], [place]) Address [address] [place] [address] Care Team Providers Care Machine Marker Name Role Phone Unavailable Primary Care Provider Unavailabl e Encounter Details Date Type Department Care Team (Late st Contact Info) Description 05/27/2020 Transcribed Document [facility] [place] [address] [place] [address] ProviderNuha MD [address] [place] [address] Social History Tobacco Use Types Packs/Day Years Used Date Smoking Tobacco: Never Assessed Comments Unknown Sex and Gender Information Value Date Recorded Sex Assigned at Not on file Legal Sex Female 2:42 PM CDT Gender Identity Not on file Sexual Orientation Not on file documented as of this encounter Miscellaneous Notes * Cerner Conversion Note - Historical ProviderMD - 05/27/2020 2:37 PM STITCH MARKER Therapy Screen, OT Entered On: 05/27/2020 14:38 EST Performed On: 05/27/2020 14:37 EST by JENNIFER FOX STUDENT-OCCUPATIONAL THERAPIST Therapy Screen, OT Medical Chart Reviewed : Yes Person Providing Information : Nurse, Patient Screen Completed : Yes Recommendations for Evaluation OT : Do not recommend Occupational Therapy evaluation Therapy Screen Findings, OT : Patient at functional baseline Recommendations Upon Discharge : None Additional Therapy Screen Comment : Pt D/C home today, at fxnl baseline JENNIFER FOX, STUDENT-OCCUPATIONAL THERAPIST - 05/27/2020 14:37 EST documented in this encounter Plan of Treatment Not on file documented as of this encounter Visit Diagnoses Not on filedocumented in this encounter
--- OUTSIDE RECORDS SUMMARY | 2025-02-23 12:34 | XMS_ITS | Encounter Summary ---
Author Organization [email or web address] ([place], [place], [place], [place]) Address [address] [place] [address] Care Team Providers Care Supervisor Customer Records Division Name Role Phone Unavailable Primary Care Provider Unavailabl e Encounter Details Date Type Department Care Team (Late st Contact Info) Description 12/23/2019 Transcribed Document [facility] [place] Family Medicine [facility] [place] [address] ProviderNuah MD [address] [place] [address] Social History Tobacco Use Types [...] AM CDT Pain Assessment Entered On: 12/23/2019 2:13 EDT Performed On: 12/23/2019 1:02 EDT by Kavita Burrell Lpn Intervention Information: acetaminophen Performed by Kavita Burrell Lpn on 12/23/2019 00:02:00 EDT acetaminophen,1000mg Oral Pain Assessment Pain Assessment : Follow-up assessment Pain Scale Goal : 3 Pain Scale Used : 0-10 Scale Kavita Burrell Lpn - 12/23/2019 2:13 EDT Pain Scale Intensity : 1 Kavita Burrell Lpn - 12/23/2019 2:13 EDT Image 4 - Images currently included in the form version of this document have not been included in the text rendition version of the form. documented in this encounter Plan of Treatment Not on file documented as of this encounter Visit Diagnoses Not on filedocumented in this encounter
--- OUTSIDE RECORDS SUMMARY | 2025-02-23 12:34 | XMS_ITS | Clinical Summary ---
Author Organization [facility] Address [address] [place] [id number] Care Team Providers Care Butane Compressor Operator Name Role Phone Cristino Alvarez MD Primary Care Provider [phone] Family History Medical History Relation Name Comments Breast cancer Sister Ovarian cancer Neg Hx Relation Name Status Comments Sister Social History Tobacco Use Types Packs/Day Years Used Date Smoking Tobacco: Never Assessed Abuse Screen Answer Date Recorded Unsafe at Home or Work/School Not on file Feels Threatened by Someone? Not on file 03/2023 Does Anyone Keep You from Co ntacting Others or Doint Things Outside the Home? Not on file 04/29/2023 Physical Sign of Abuse Present Not on file 1 Housing Stability Answer Date Recorded Current Living Arrangements Not on file 03/2023 Potentially Unsafe Housing Conditions Not on jose antonio e 04/29/2023 Family and Community Support Answer Dev e Recorded Help with Day-to-Day Activities Not on file 04/29/2023 Lonely or Isolated Not on file 04/29/2023 Employment Answer Date Recorded Do you want help finding or keeping work or a mehran b? Not on file 04/29/2023 Disabilities Answer Date Recorded Concentrating, Remembering, or Making Decisions Difficulty Not on file 04/29/2023 Doing Errands Independently Difficulty Not on fi le 04/29/2023 Education Answer Date Recorded Help with school or training? Not on file Preferred Language Not on file 04/29/2023 Comments No Sex and Gender Information Value Date Recorded Sex Assigned at Not on file Legal Sex Female 10:39 AM EDT Gender Identity Not on file Sexual Orientation Not on file Plan of Treatment Health Maintenance Due Date Last Done Comments ANNUAL PHYSICAL 1950 DXA SCAN 1950 HEPATITIS C SCREENING 1950 COLOGUARD 1996 COLON CANCER SCREENING 5 YEA R SIGMOIDOSCOPY 1996 COLONOSCOPY 1996 [address]AL CANCER SCREENING 1996 CT COLONOGRAPHY 1996 FECAL OCCULT BLOOD TEST 1996 FIT Testing (1 year) 1996 Pneumococcal Vaccine 50+ (1 of 1 - PCV) 2001 ZOSTER VACCINE (1 of 2) 2001 TDAP/TD VACCINES (2 - Tdap) 09/21/2006 09/21/1996 MAMMOGRAM 12/01/2020 12/01/2018, 10/21, 07/05/2016, Additional history exists COVID-19 Vaccine (2023-2 5 season) 2024 INFLUENZA VACCINE 04/21/2025 04/10/2016 Procedures Procedure Name Priority Date/Time Associated Diagnosis Comments MAMMO SCREENING DIGITAL TOMOSYNTHESIS BILATERAL W CAD Routine 12/01/2018 11:09 AM EDT Visit for screening mammogram from Last 3 Months or Most Recently Relevant to Health Maintenance Results * Mammo Screening Digital Tomosynthesis Bilateral With CAD (12/01/2018 11:09 AM EDT) Anatomical Region Laterality Modality Breast N/A Mammography 12/02/2018 10:0 0 AM EDT Impressions 12/02/2018 10:08 AM EDT Negative screening mammogram. RECOMMENDATION: Continue annual screening mammography. BI-RADS CATEGORY 1, NEGATIVE. CAD was utilized. The standard false-negative rate of mammography is between 10% and 25%. Complex patterns or increased breast density will markedly elevate the false-negative rate of mammography. A letter, in lay terminology, with the results of this exam will be mailed to the patient. This report was finalized on 12/02/2018 10:[address] Aruna Powers MD. Narrative 12/02/2018 10:08 AM EDT BILATERAL SCREENING MAMMOGRAM WITH TOMOSYNTHESIS: HISTORY: 68-year-old patient with no personal history of breast cancer and no current breast complaints. A sister was diagnosed with breast cancer at age 44. The patient has lost 9 pounds since her last mammogram. TECHNIQUE: Bilateral CC and MLO low dose full field digital breast tomosynthesis imaging was performed with 2D and 3D acquisitions. COMPARISON: 11/08/2016, 07/05/2016, 07/04/2015, 2014, and 06/30/2013 FINDINGS: There are scattered areas of fibroglandular density. The fibroglandular pattern is stable. There are no suspicious masses, worrisome calcifications, nonsurgical areas of architectural distortion, or other secondary signs of malignancy. us Cristino Alvarez MD IM MAMMOGRAPHY ORDERABLES Massiel susannah Result from Last 3 Months or Most Recently Relevant to Health Maintenance Insurance MEDICARE A & B Member Subscriber Plan / Payer (Ef fective 2016-Present) Name:Salima Burrell Member ID:[id number] Relation to Subscriber:Self Name:Salima Burrell Subscriber ID:[id number] Payer ID:[id number] Group ID:Not on file Type:Not on file Address: [facility] [address] [place] [id number] [employer] Care Teams Butane Compressor Operator Relationship Specialty Start Date End Date Cristino Alvarez MD [address] [place] [address] PCP - General 07/01/15
--- OUTSIDE RECORDS SUMMARY | 2025-02-23 12:34 | XMS_ITS | Encounter Summary ---
Author Organization [employer] ([place], [place], [place], [place]) Address [address] [place] [address] Care Team Providers Care Pattern Filer Name Role Phone Unavailable Primary Care Provider Unavailabl e Encounter Details Date Type Department Care Team (Late st Contact Info) Description 05/27/2020 Transcribed Document [facility] [place] Family Medicine [address] [place] [address] ProviderNuha MD [address] [place] [address] Social History Tobacco Use Types Packs/Day Years Used Date Smoking Tobacco: Never Assessed Comments Unknown Sex and Gender Information Value Date Recorded Sex Assigned at Not on file Legal Sex Female 2:42 PM CDT Gender Identity Not on file Sexual Orientation Not on file documented as of this encounter Miscellaneous Notes * [employer] Conversion Note - Historical ProviderMD - 05/27/2020 10:54 AM FIELD ARTILLERY RADAR OPERATOR Patient: NATE KRAMER Age: 69 years Sex: Female : 1950 Associated Diagnoses: None Author: SOPHIE SANCHEZ, [facility] Ms. Kramer is on Revlimid for multiple myeloma. Per patient, it is currently on hold (2 weeks prior to surgery and 2 weeks post surgery), for anticipated surgery on Saturday. Revlimid voided from active orders. Thank You, Clark ByersD Electronically signed by Bac[facility] Conversion Engine Dynamometer Tester Cerner at 11/05/2022 5:50 PM CDT documented in this encounter Plan of Treatment Not on file documented as of this encounter Visit Diagnoses Not on filedocumented in this encounter
--- OUTSIDE RECORDS SUMMARY | 2025-02-23 12:34 | XMS_ITS | Encounter Summary ---
Author Organization [employer] ([place], [place], [place], [place]) Address [address] [place] [address] Care Team Providers Care Security Systems Technician Name Role Phone Unavailable Primary Care Provider Unavailabl e Encounter Details Date Type Department Care Team (Late st Contact Info) Description 12/23/2019 Transcribed Document [facility] [place] Family Medicine [address] [place] [address] ProviderNuha MD [address] [place] [address] Social History Tobacco Use Types Packs/Day Years Used Date Smoking Tobacco: Never Assessed Comments Unknown Sex and Gender Information Value Date Recorded Sex Assigned at Not on file Legal Sex Female 2:42 PM CDT Gender Identity Not on file Sexual Orientation Not on file documented as of this encounter Miscellaneous Notes * [employer]ner Conversion Note - Historical ProviderMD - 12/23/2019 5:00 PM CDT Chart Check - Review Order Profile Entered On: 12/23/2019 18:31 EDT Performed On: 12/23/2019 17:00 EDT by Ambar Rai RN Chart Check Powerplans Initiated/Discontinued as Appropriate : Yes All Active Orders Reviewed : Yes Ambar Rai RN - 12/23/2019 18:30 EDT documented in this encounter Plan of Treatment Not on file documented as of this encounter Visit Diagnoses Not on filedocumented in this encounter
--- OUTSIDE RECORDS SUMMARY | 2025-02-23 12:34 | XMS_ITS | Encounter Summary ---
Author Organization [employer] ([place], [place], [place], [place]) Address [address] [place] [address] Care Team Providers Care Provider Relations Representative Name Role Phone Unavailable Primary Care Provider Unavailabl e Encounter Details Date Type Department Care Team (Late st Contact Info) Description 05/27/2020 Transcribed Document [facility] [place] 234 beds at the [facility] [place] [address] ProviderNuha MD [address] [place] [address] Social History Tobacco Use Types Packs/Day Years Used Date Smoking Tobacco: Never Assessed Comments Unknown Sex and Gender Information Value Date Recorded Sex Assigned at Not on file Legal Sex Female 2:42 PM CDT Gender Identity Not on file Sexual Orientation Not on file documented as of this encounter Miscellaneous Notes * Cerner Conversion Note - Nuha ProviderMD - 05/27/2020 1:09 PM 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 Ms. Kramer is a 69-year-old woman with a past medical history significant for multiple myeloma who has a previous history of colon surgery requiring a creation of an ileostomy. She was scheduled to undergo routine reanastomosis of her bowel and preoperative laboratory data showed that she had severe hyperkalemia with a potassium greater than 7.7. Her electrolytes are followed in the outpatient setting by her oncologist and she had been on IV potassium supplementation. She was transitioned to oral potassium supplementation and outpatient labs showed that her potassium was as high as 6.1 mmol/L. After this lab result she was instructed to stop taking supplemental potassium. She received aggressive medical therapy by the emergency room staff to reverse her hyperkalemia. This included IV calcium, IV fluids, bicarbonate, insulin, dextrose and Lokelma. Her potassium level responded adequately to this medical therapy. She was monitored overnight and repeat potassium level was normal. Her baseline serum creatinine is modestly elevated and her creatinine at presentation was 1.8 mg/dL. This morning, she is tolerating oral nutrition. She believes that she can eat and drink without problems and that she can avoid volume depletion. She understands that she should avoid potassium supplements. Review of Systems A 10 point review of systems was collected and was negative except as mentioned in history of present illness Vital Signs T: 36.7 ??C TMIN: 36 ??C TMAX: 36.7 ??C HR: 72(Monitored) RR: 18 BP: 110/53 SpO2: 98% HT: 160.02 cm WT: 73.64 kg BMI: 28.8 Oxygen Settings (Last) Oxygen Therapy Mode: Room air (05/27/20 08:00:00) Physical Exam Gen.: Alert, no acute distress, chronically ill, thin HEENT: No temporal wasting, no scleral icterus, no conjunctival erythema Neck: Supple no masses Cardiovascular: Normal S1-S2, regular rhythm, normal rate no rub no gallop Pulmonary: Clear to auscultation bilaterally no wheezes or rhonchi, fair air movement Gastrointestinal: Abdomen is soft, nontender, nondistended, right-sided ostomy draining soft stool Genitourinary: No CVA tenderness Musculoskeletal good muscle tone no significant lower extremity edema Neuro/psych: Mood and affect are appropriate, thoughts are fluent, moves all extremities spontaneously, no focal deficits Skin: No lesions, rashes or ecchymoses, I did not examine the sacral area Assessment/Plan Hyperkalemia-resolved after medical management Acute kidney injury on chronic kidney disease stage III, improving/stable Multiple myeloma Ileostomy I am reassured by the improvement in her laboratory data. Her potassium is normalized after medical therapy. She is tolerating oral nutrition and oral fluids. She is otherwise clinically stable. She understands not to take additional potassium supplements at home. She can follow-up in our office for routine monitoring of her potassium level. She can also follow with oncology for lab results. I do not think she is critically ill. I discussed the case with hospital medicine and from a nephrology standpoint she is okay to leave the critical care setting and even okay for discharge. I am reassured by her global improvement. I am optimistic that with supportive care, good nutrition and good fluid intake that her serum creatinine should also return back to her baseline. -From a nephrology standpoint she is okay to undergo abdominal surgery for reversal of her ileostomy at any time. I will defer to surgery regarding timing and scheduling of her abdominal surgery. Johnny Warner M.D. Nephrology Partner with , Dr. Coker and Dr. 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 Multiple myeloma Restless legs syndrome Ribs, multiple fractures Sinusitis Skin cancer Sleep apnea//no machine Urinary tract infection//jul 2018 Procedure/Surgical History BYPASS ILEUM TO CUTANEOUS, OPEN APPROACH (12/22/2019), DRAINAGE OF BLADDER WITH DRAINAGE DEVICE, ENDO (12/22/2019), INSPECTION OF BLADDER, ENDO (12/22/2019), ISOLATION (12/22/2019), RELEASE LEFT LARGE INTESTINE, OPEN APPROACH (12/22/2019), RELEASE LEFT URETER, ENDO (12/22/2019), RELEASE OMENTUM, OPEN APPROACH (12/22/2019), RESECTION OF RECTUM, OPEN APPROACH (12/22/2019), SUPPLEMENT ABDOMINAL WALL WITH AUTOL SUB, OPEN APPROACH (12/22/2019), low anterior resection with loop ileostomy (12/2019), left shoulder surgery (2014), skin cancer excision (2013), left knee replacement (2011), right knee replacement (2010), left wrist surgery//pins (2005), hysterectomy (1982), right breast lumpectomy (1981), tubal (1980), cyst on ovary (1978), D/C//miscarriage (1972), c/section, colonoscopy, kyphoplasty//x4, left elbow surgery//plates and screws. Medications Inpatient aspirin, 81 mg= 1 Tab, Oral, At Bedtime cyanocobalamin, 2500 mcg= 1 Tab, Oral, Daily Dulcolax Laxative, 5 mg= 1 Tab, Oral, Daily, PRN DuoNeb 0.5 mg-2.5 mg/3 mL inhalation solution, 3 mL, Nebulized Inhalation , Q6H, PRN Duragesic-12, 1 Patch, TransDermal, [id number] Duragesic-25, 1 Patch, TransDermal, [id number] ferrous sulfate, 325 mg= 1 Tab, Oral, Daily gabapentin, 600 mg= 2 Cap, Oral, TID loperamide, 1 mg= 7.5 mL, Oral, BID magnesium oxide, 400 mg= 1 Tab, Oral, BID montelukast, 10 mg= 1 Tab, Oral, At Bedtime morphine, 2 mg= 1 mL, IV Push, Q6H, PRN oxyCODONE, 10 mg= 2 Tab, Oral, Q6H pantoprazole, 40 mg= 1 Tab, Oral, Daily rOPINIRole, 0.25 mg= 1 Tab, Oral, BID Tylenol, 650 mg= 2 Tab, Oral, Q4H, PRN Wellbutrin XL, 150 mg= 1 Tab, Oral, Daily Zofran, 4 mg= 2 mL, IV Push, Q4H, PRN Home acetaminophen/butalbital/caffeine 325 mg-50 mg-40 mg oral tablet, 1 Tab, Oral, Q4H, PRN aspirin 81 mg oral tablet, chewable, 81 mg= 1 Tab, Oral, Daily buPROPion 150 mg/24 hours (XL) oral tablet, extended release, 150 mg= 1 Tab, Oral, Daily fentaNYL 37.5 mcg/hr transdermal film, extended release, 1 Patch, Topical, [id number] ferrous sulfate 325 mg (65 mg elemental iron) oral delayed release tablet, 325 mg= 1 Tab, Oral, Daily gabapentin 300 mg oral capsule, 600 mg= 2 Cap, Oral, TID loperamide 2 mg oral capsule, 2 mg= 1 Cap, Oral, Q4H, PRN Magic Mouthwash, 5 mL, Swish and Spit, Q6H, PRN magnesium oxide 400 mg (240 mg elemental magnesium) oral tablet, 400 mg= 1 Tab, Oral, BID methenamine hippurate 1 g oral tablet, 0.5 Gram= 0.5 Tab, Oral, BID montelukast 10 mg oral tablet, 10 mg= 1 Tab, Oral, Daily Mucinex 600 mg oral tablet, extended release, 1200 mg= 2 Tab, Oral, Q12H, PRN nystatin 100,000 units/g topical cream, 1 Application, Topical, BID, PRN omeprazole 40 mg oral delayed release capsule, 40 mg= 1 Cap, Oral, Daily ondansetron 8 mg oral tablet, 8 mg= 1 Tab, SubLINgual, TID, PRN oxyCODONE 10 mg oral tablet, 10 mg= 1 Tab, Oral, Q6H, PRN Proventil HFA 90 mcg/inh inhalation aerosol, 2 Puff, Inhalation, Q4H, PRN Revlimid 2.5 mg oral capsule, 2.5 mg= 1 Cap, Oral, Daily rOPINIRole 0.25 mg oral tablet, 0.25 mg= 1 Tab, Oral, BID Vitamin B12 1000 mcg oral tablet, 1000 mcg= 1 Tab, Oral, Daily Allergies meperidine (Hypotension) sulfa drugs (Hives) Social History Alcohol Alcohol Use History No. Home/Environment Lives with Spouse. Home equipment: Respiratory treatments, Walker/Cane. Substance Abuse Drug Use Hx: No. Use in Last 12 Months: No. Tobacco Never (less than 100 in lifetime) Smoking Status. Never Smokeless Tobacco Status. Family History No family history of kidney disease, kidney transplant or dialysis. Family history is otherwise noncontributory Lab Results Test Name Test Result Date/Time Sodium Level 131 mmol/L (Low) 05/27/2020 04:09 EST Sodium Level 130 mmol/L (Low) 05/26/2020 18:00 EST Sodium Level 133 mmol/L (Low) 05/26/2020 14:24 EST Potassium Level 5.1 mmol/L 05/27/2020 04:09 EST Potassium Level 5.2 mmol/L (High) 05/26/2020 18:00 EST Potassium Level 5.7 mmol/L (High) 05/26/2020 14:24 EST Chloride Level 103 mmol/L 05/27/2020 04:09 EST Chloride Level 104 mmol/L 05/26/2020 18:00 EST Chloride Level 106 mmol/L 05/26/2020 14:24 EST Carbon Dioxide Level 22 mmol/L 05/27/2020 04:09 EST Carbon Dioxide Level 19 mmol/L (Low) 05/26/2020 18:00 EST Carbon Dioxide Level 22 mmol/L 05/26/2020 14:24 EST Anion Gap 11 05/27/2020 04:09 EST Anion Gap 12 05/26/2020 18:00 EST Anion Gap 11 05/26/2020 14:24 EST Glucose Level 110 mg/dL (High) 05/27/2020 04:09 EST Glucose Level 126 mg/dL (High) 05/26/2020 18:00 EST Glucose Level 86 mg/dL 05/26/2020 14:24 EST Blood Urea Nitrogen 30 mg/dL (High) 05/27/2020 04:09 EST Blood Urea Nitrogen 32 mg/dL (High) 05/26/2020 18:00 EST Blood Urea Nitrogen 32 mg/dL (High) 05/26/2020 14:24 EST Creatinine Level 1.70 mg/dL (High) 05/27/2020 04:09 EST Creatinine Level 1.90 mg/dL (High) 05/26/2020 18:00 EST Creatinine Level 1.80 mg/dL (High) 05/26/2020 14:24 EST eGFR 36 mL/min/1.73m2 (Low) 05/27/2020 04:09 EST eGFR 32 mL/min/1.73m2 (Low) 05/26/2020 18:00 EST eGFR 36 mL/min/1.73m2 (Low) 05/26/2020 16:07 EST eGFR 34 mL/min/1.73m2 (Low) 05/26/2020 14:24 EST eGFR NonAfrican 30 mL/min/1.73m2 (Low) 05/27/2020 04:09 EST eGFR NonAfrican 26 mL/min/1.73m2 (Low) 05/26/2020 18:00 EST eGFR NonAfrican 30 mL/min/1.73m2 (Low) 05/26/2020 16:07 EST eGFR NonAfrican 28 mL/min/1.73m2 (Low) 05/26/2020 14:24 EST Bun/Creatinine 17.6 05/27/2020 04:09 EST Bun/Creatinine 16.8 05/26/2020 18:00 EST Bun/Creatinine 17.8 05/26/2020 14:24 EST Calcium Level 9.0 mg/dL 05/27/2020 04:09 EST Calcium Level 9.2 mg/dL 05/26/2020 18:00 EST Calcium Level 10.1 mg/dL 05/26/2020 14:24 EST Protein Total 6.4 Gram/dL 05/26/2020 18:00 EST Protein Total 6.2 Gram/dL (Low) 05/26/2020 14:24 EST Albumin Level 3.6 Gram/dL 05/26/2020 18:00 EST Albumin Level 3.3 Gram/dL (Low) 05/26/2020 14:24 EST Globulin 2.8 Gram/dL 05/26/2020 18:00 EST Globulin 2.9 Gram/dL 05/26/2020 14:24 EST A/G Ratio 1.3 05/26/2020 18:00 EST A/G Ratio 1.1 05/26/2020 14:24 EST Bilirubin Total 0.6 mg/dL 05/26/2020 18:00 EST Bilirubin Total 0.4 mg/dL 05/26/2020 14:24 EST Alk Phos 180 Units/Liter (High) 05/26/2020 18:00 EST Alk Phos 171 Units/Liter (High) 05/26/2020 14:24 EST AST 34 Units/Liter 05/26/2020 18:00 EST AST 22 Units/Liter 05/26/2020 14:24 EST ALT 46 Units/Liter 05/26/2020 18:00 EST ALT 41 Units/Liter 05/26/2020 14:24 EST Magnesium Level 2.0 mg/dL 05/27/2020 04:09 EST Magnesium Level 2.2 mg/dL 05/26/2020 14:23 EST Amylase Level 114 Units/Liter 05/26/2020 14:23 EST Sodium POC 135 mmol/L (Low) 05/26/2020 16:07 EST Potassium POC 4.6 mmol/L 05/26/2020 16:07 EST Chloride POC 106 mmol/L 05/26/2020 16:07 EST CO2 POC 21.0 mmol/L (Low) 05/26/2020 16:07 EST Anion Gap POC 14.0 mmol/L 05/26/2020 16:07 EST Glucose POC 32 mg/dL (Critical) 05/26/2020 16:07 EST Device Comment 1 Notified Nurse RBV 05/27/2020 00:12 EST Device Comment 1 Notified Nurse RBV 05/26/2020 16:48 EST Glucose POC2 97 mg/dL 05/27/2020 00:12 EST Glucose POC2 77 mg/dL 05/26/2020 18:43 EST Glucose POC2 93 mg/dL 05/26/2020 16:48 EST BUN POC 31 mg/dL (High) 05/26/2020 16:07 EST Creatinine POC 1.7 mg/dL (High) 05/26/2020 16:07 EST Ca Ioniz POC 1.52 mmol/L (High) 05/26/2020 16:07 EST Lipase Level 206 Units/Liter 05/26/2020 14:23 EST Lactic Acid Level 0.9 mmol/L 05/26/2020 14:23 EST Troponin I Ultra <0.015 ng/mL 05/26/2020 14:23 EST ProBNP 135 pg/mL (High) 05/26/2020 14:23 EST WBC 4.1 K/uL (Low) 05/27/2020 04:09 EST RBC 3.68 Million/uL (Low) 05/27/2020 04:09 EST Hgb 10.7 g/dL (Low) 05/27/2020 04:09 EST Hct 33.3 % (Low) 05/27/2020 04:09 EST MCV 90.5 fL 05/27/2020 04:09 EST MCH 29.1 pg 05/27/2020 04:09 EST MCHC 32.1 Gram/dL (Low) 05/27/2020 04:09 EST Platelet Count 256 K/uL 05/27/2020 04:09 EST MPV 8.8 fL (Low) 05/27/2020 04:09 EST RDW 14.4 % 05/27/2020 04:09 EST Neut % 42.0 % 05/27/2020 04:09 EST Neut # 1.71 K/uL 05/27/2020 04:09 EST Lymph % 38.8 % 05/27/2020 04:09 EST Lymph # 1.58 x10(3)/uL 05/27/2020 04:09 EST Hooker % 11.8 % (High) 05/27/2020 04:09 EST Hooker # 0.48 K/uL 05/27/2020 04:09 EST Eos % 4.7 % 05/27/2020 04:09 EST Eos # 0.19 x10(3)/uL 05/27/2020 04:09 EST Baso % 2.2 % (High) 05/27/2020 04:09 EST Baso # 0.09 x10(3)/uL 05/27/2020 04:09 EST Hematocrit POC 39.0 % 05/26/2020 16:07 EST Hemoglobin POC 13.3 Gram/dL 05/26/2020 16:07 EST Slide Review No 05/27/2020 04:09 EST IG# 0.02 x10(3)/uL 05/27/2020 04:09 EST IG% 0.50 % 05/27/2020 04:09 EST PT 9.9 Second(s) 05/27/2020 04:09 EST PT 9.9 Second(s) 05/26/2020 14:23 EST INR 0.9 05/27/2020 04:09 EST INR 0.9 05/26/2020 14:23 EST TSH 0.710 mcInt Units/mL 05/27/2020 04:09 EST Electronically signed by Bacilio, [facility] Conversion Home Health Care Social Worker Cerner at 11/05/2022 5:51 PM CDT documented in this encounter Plan of Treatment Not on file documented as of this encounter Visit Diagnoses Not on filedocumented in this encounter
--- OUTSIDE RECORDS SUMMARY | 2025-02-23 12:34 | XMS_ITS | Encounter Summary ---
Author Organization [employer] ([place], [place], [place], [place]) Address [address] [place] [address] Care Team Providers Care Scientific Laboratory Supervisor Name Role Phone Unavailable Primary Care Provider Unavailabl e Encounter Details Date Type Department Care Team (Late st Contact Info) Description 05/27/2020 Transcribed Document [facility] [place] Family Medicine [address] [place] [address] ProviderNuha MD [address] [place] [address] Social History Tobacco Use Types Packs/Day Years Used Date Smoking Tobacco: Never Assessed Comments Unknown Sex and Gender Information Value Date Recorded Sex Assigned at Not on file Legal Sex Female 2:42 PM CDT Gender Identity Not on file Sexual Orientation Not on file documented as of this encounter Miscellaneous Notes * Cerner Conversion Note - Nuha ProviderMD - 05/27/2020 12:58 PM ROOF TECHNICIAN [facility] [place] [address] SALIMA KRAMER :1950 Visit Time:05/26/2020 Your Visit Summary Your Care Team Admitting Physician - JIM BRAVO MD Attending Physician - JIM BRAVO MD Primary Care Physician - THAD CORTEZ MD-[facility] Referring Physician - RHONDA CLARK MD-[facility] Your Diagnosis Abnormal diagnostic test Hyperkalemia, Hyperkalemia, Hyperkalemia These Are Your Goals to get the iliostomy reversed. - Not met Discharge Vitals Temperature 36.7 ??C Heart Rate (Monitored) 72 Respiratory Rate 18 Blood Pressure 110/53 What to do next Follow-Up Appointments Follow Up with DAVID JUDD When Within 1 week Where: [address] [place] [address] [address] [place] [address]- Business (1) Follow Up with Follow up with primary care provider When Within 1 week Medications What How Much When Instructions Next Dose Magic Mouthwash 5 Milliliter(s) Swish and Spit Every 6 Hours as needed for Mouth Sore Pain As needed, as directed. albuterol (Proventil HFA 90 mcg/ inh inhalation aerosol) 2 Puff(s) Inhalation Every 4 Hours as needed for for wheezing As needed, as directed. buPROPion (buPROPion 150 mg/ 24 hours (XL) oral tablet, extended release) 1 Tablet(s) Oral Every Day 05/28/2020 @ 9AM fentaNYL (fentaNYL 37.5 mcg/ hr transdermal film, extended release) 1 Patch(es) Topical Interval Every 72 Hours 05/30/2020 @9AM lenalidomide (Revlimid 2.5 mg oral capsule) 1 Capsule(s) Oral Every Day CURRENTLY ON HOLD FOR SCHEDULED PROCEDURE; HOLD 2 WEEKS PRIOR TO SURGERY AND 2 WEEEKS AFTER SURGERY; Resume 2 weeks after surgery. nystatin topical (nystatin 100,000 units/ g topical cream) 1 Application(s) Topical Two Times A Day as needed for Other (See Comment) apply to affected areas as directed As needed and as directed. oxyCODONE (oxyCODONE 10 mg oral tablet) 1 Tablet(s) Oral Every 6 Hours as needed for Breakthrough Pain 05/27/2020 @6PM. acetaminophen/ butalbital/ caffeine (acetaminophen/ butalbital/ caffeine 325 mg-50 mg-40 mg oral tablet) 1 Tablet(s) Oral Every 4 Hours as needed for Migraine Headache 05/27/2020 @ 4PM aspirin (aspirin 81 mg oral tablet, chewable) 1 Tablet(s) Oral Every Day 05/27/2020 @9PM cyanocobalamin (Vitamin B12 1000 mcg oral tablet) 1 Tablet(s) Oral Every Day 05/28/2020 @9AM ferrous sulfate (ferrous sulfate 325 mg (65 mg elemental iron) oral delayed release tablet) 1 Tablet(s) Oral Every Day 05/28/2020 @9AM gabapentin (gabapentin 300 mg oral capsule) 2 Capsule(s) Oral Three Times A Day 05/27/2020 @3PM guaiFENesin (Mucinex 600 mg oral tablet, extended release) 2 Tablet(s) Oral Every 12 hours as needed for Cough As needed, as directed. loperamide (loperamide 2 mg oral capsule) 1 Capsule(s) Oral Every 4 Hours as needed for for loose stool As needed, as directed. magnesium oxide (magnesium oxide 400 mg (240 mg elemental magnesium) oral tablet) 1 Tablet(s) Oral Two Times A Day 05/27/2020 @9PM. methenamine (methenamine hippurate 1 g oral tablet) 0.5 Tablet(s) Oral Two Times A Day 05/27/2020 @ 9PM. montelukast (montelukast 10 mg oral tablet) 1 Tablet(s) Oral Every Day 05/27/2020 @ 9PM. omeprazole (omeprazole 40 mg oral delayed release capsule) 1 Capsule(s) Oral Every Day before a meal 05/28/2020 @8AM ondansetron (ondansetron 8 mg oral tablet) 1 Tablet(s) SubLINgual Three Times A Day as needed for Nausea As needed, as directed. rOPINIRole (rOPINIRole 0.25 mg oral tablet) 1 Tablet(s) Oral Two Times A Day 05/27/2020 @9PM. Take your medications faithfully. Do NOT skip medication. Do NOT stop taking medications without the direction of a physician. Carry a list of your medications with you at all times, and take this medication list with you to your first follow up visit. Report any side effects. Avoid herbal remedies unless discussed with your physician. As part of your treatment plan, your physician may have prescribed a limited course of a controlled substance. This medication may be given to help people with moderate or severe pain or for other medical conditions, but there are risks involved with treatment. Common side effects may include nausea, constipation, drowsiness, sweating, itching, dry mouth, and rash. More serious side effects may include cognitive and motor impairment, like problems with thinking, concentrating, alertness, and movement (e.g. slowed reflexes), and driving and operating heavy machinery can be dangerous. It is important for you to talk to your physician if you have these side effects or questions. These controlled substances can produce physical dependence and be habit-forming if taken for an extended period of time, which means that the body has gotten used to them and may experience withdrawal symptoms if they are abruptly stopped. Withdrawal symptoms can include runny nose, sweating, goose bumps, diarrhea, abdominal cramping, rapid heartbeat, difficulty sleeping, and nervousness. Please dispose of unused and medications per your retail pharmacy guidance. Allergies meperidine (Hypotension) sulfa drugs (Hives) Immunizations This Visit No Immunizations Found Education Materials Hyperkalemia Hyperkalemia is when you have too [...] Follow these instructions at home: ??? Take kocb-ubz-holbvin and prescription medicines only as told by [...] need to follow a low-potassium diet. A deliverer food (dietitian) can help you. ??? Keep all [...] much potassium in your blood. ??? Take qczf-xql-szbudsu and prescription medicines only as told by [...] 07/08/2006 Document Revised: 06/23/2018 Document Reviewed: 06/23/2018 [email or web address] Patient Education ?? 2020 [employer]. Emergency Awareness and Preventative Care STROKE is an EMERGENCY Every Minute Counts Act FAST and Check for these signs: FACE Does the face look uneven? ARM Does one arm drift down? SPEECH Does their speech sound strange? TIME Call at any sign of stroke Stroke Risk Factors Atrial Fibrillation (irregular heartbeat) Diabetes Family history of stroke Heart Disease Heavy alcohol use High Blood Pressure High Cholesterol Physical inactivity and obesity Smoking Cigarette Smoking The facts are clear, cigarette smoking will shorten your life. Smoking can cause many illnesses along the way. As a healthcare provider, we recommend that you stop smoking. Assistance with quitting is available by contacting 5-473-BKFT-NOW. This is a free resource providing counseling, support, and referral. Or you may contact your personal physician. National Suicide Prevention Lifeline: The National Suicide Prevention Lifeline is a national network of local crisis centers that provides free and confidential emotional support to people in suicidal crisis or emotional distress 24 hours a day, 7 days a week. Don't Wait! Stop a Heart Attack Before it Starts What is a heart attack? A heart attack is damage or to a part of the heart from severely decreased or lack of blood flow to the heart. Over time, arteries can become narrow from the buildup of fat and cholesterol, which is called plaque. The plaque can rupture causing a blood clot to form. When the blood clot forms, the artery can become severely narrowed or completely blocked, causing a heart attack. Heart attack is the leading cause of in the [place]. 85% of muscle damage occurs within the first 2 hours. Delay in the recognition of heart attack symptoms increases the chances of . Know the early symptoms of a heart attack: Nausea Feeling of fullness in chest Jaw Pain Pain that travels down one or both arms Fatigue/being tired Anxiety Back Pain Chest pressure, squeezing, or discomfort Shortness of breath Sweating, or a cold sweat Feeling of impending doom There are unusual signs of a heart attack, too! Women, the elderly, and diabetics may present with atypical symptoms: Fainting/dizziness Weakness Confusion Risk Factors for a Heart Attack Some heart disease risk factors, such as age and family history, cannot be changed. Others, like smoking and lack of exercise, can be changed. Smoking High Cholesterol High Blood Pressure Family History Obesity Age Gender (Males are at higher risk) Lack of Exercise Diabetes Diet Stress Excessive Alcohol Intake If you or someone you know is experiencing the signs and symptoms of a heart attack, DON???T DELAY. Call immediately and seek help. If someone collapses, perform CPR! Do not attempt to drive if you are having symptoms of heart attack. Hands-Only CPR Why Hands-Only CPR? Hands-Only CPR has been shown to be as effective as conventional CPR for cardiac arrests that occur outside of a hospital. Survival depends on immediately receiving CPR from someone nearby. How do you perform Hands-Only CPR? There are two easy steps: Call if you see a teen or adult collapse Push hard and fast in the center of the chest at a beat of 100 beats per minute. Save a life! 4 WAYS TO GET AHEAD OF SEPSIS SEPSIS is a MEDICAL EMERGENCY. Time matters! Infections put you and your family at risk for a life-threatening condition called sepsis. Sepsis is the body's extreme response to an infection. It is life-threatening, and without timely treatment, sepsis can rapidly lead to tissue damage, organ failure, and . Sepsis happens when an infection you already have-in your skin, lungs, urinary tract or somewhere else-triggers a chain reaction throughout your body. 1 PREVENT INFECTIONS Take good care of chronic conditions. Talk to your doctor about getting the recommended vaccines. 2 PRACTICE GOOD HYGIENE Wash your hands frequently. Keep cuts or open sores clean and covered until they are healed. 3 KNOW THE SYMPTOMS Confusion or disorientation Shortness of breath High heart rate Fever, shivering, or feeling very cold Extreme pain or discomfort Clammy or sweaty skin 4 ACT FAST Get medical care IMMEDIATELY if you suspect sepsis or if you have an infection that is not getting better or is getting worse. To learn more about sepsis and how to prevent infections, visit www.cdc.gov/sepsis. Test Results Laboratory or Other Results This Visit (last charted value for your 05/26/2020 visit) Hematology 05/27/2020 4:09 AM WBC: 4.1 K/uL -- Normal range between ( 4.5 and 10.5 ) RBC: 3.68 Million/uL -- Normal range between ( 3.93 and 5.22 ) Hct: 33.3 % -- Normal range between ( 34.1 and 44.9 ) Hgb: 10.7 g/dL -- Normal range between ( 11.2 and 15.7 ) Platelet Count: 256 K/uL -- Normal range between ( 163 and 369 ) MCH: 29.1 pg -- Normal range between ( 25.6 and 32.2 ) MCHC: 32.1 Gram/dL -- Normal range between ( 32.2 and 36.5 ) MCV: 90.5 fL -- Normal range between ( 79.0 and 94.8 ) Slide Review: No Eos %: 4.7 % -- Normal range between ( 0.0 and 7.0 ) [facility] #: 0.48 K/uL -- Normal range between ( 0.16 and 1.00 ) Eos #: 0.19 x10(3)/uL -- Normal range between ( 0.00 and 0.80 ) [facility] %: 11.8 % -- Normal range between ( 3.0 and 9.0 ) Baso %: 2.2 % -- Normal range between ( 0.0 and 1.5 ) Baso #: 0.09 x10(3)/uL -- Normal range between ( 0.00 and 0.20 ) RDW: 14.4 % -- Normal range between ( 11.7 and 14.9 ) Neut %: 42.0 % -- Normal range between ( 34.0 and 71.0 ) Neut #: 1.71 K/uL -- Normal range between ( 1.56 and 6.13 ) Lymph %: 38.8 % -- Normal range between ( 19.3 and 53.1 ) Lymph #: 1.58 x10(3)/uL -- Normal range between ( 1.00 and 3.90 ) MPV: 8.8 fL -- Normal range between ( 9.4 and 12.4 ) IG#: 0.02 x10(3)/uL -- Normal range between ( 0.00 and 0.05 ) IG%: 0.50 % -- Normal range between ( 0.00 and 0.60 ) 05/26/2020 4:07 PM Hemoglobin POC: 13.3 Gram/dL -- Normal range between ( 12.0 and 17.0 ) Hematocrit POC: 39.0 % -- Normal range between ( 38.0 and 51.0 ) General Chemistry 05/27/2020 4:09 AM Creatinine Level: 1.70 mg/dL -- Normal range between ( 0.55 and 1.02 ) Sodium Level: 131 mmol/L -- Normal range between ( 136 and 146 ) Potassium Level: 5.1 mmol/L -- Normal range between ( 3.5 and 5.1 ) Chloride Level: 103 mmol/L -- Normal range between ( 102 and 112 ) Carbon Dioxide Level: 22 mmol/L -- Normal range between ( 21 and 32 ) Anion Gap: 11 -- Normal range between ( 9 and 20 ) Bun/Creatinine: 17.6 -- Normal range between ( 8.0 and 20.0 ) Calcium Level: 9.0 mg/dL -- Normal range between ( 8.4 and 10.1 ) eGFR : 36 mL/min/1.73m2 eGFR NonAfrican: 30 mL/min/1.73m2 Glucose Level: 110 mg/dL -- Normal range between ( 74 and 106 ) Magnesium Level: 2.0 mg/dL -- Normal range between ( 1.5 and 2.4 ) Blood Urea Nitrogen: 30 mg/dL -- Normal range between ( 7 and 22 ) 05/27/2020 0:12 AM Glucose POC2: 97 mg/dL -- Normal range between ( 70 and 110 ) Device Comment 1: Device Comment 1 05/26/2020 6:00 PM Bilirubin Total: 0.6 mg/dL -- Normal range between ( 0.2 and 1.2 ) A/G Ratio: 1.3 -- Normal range between ( 1.1 and 2.5 ) ALT: 46 Units/Liter -- Normal range between ( 13 and 56 ) AST: 34 Units/Liter -- Normal range between ( 5 and 37 ) Globulin: 2.8 Gram/dL -- Normal range between ( 1.5 and 4.5 ) Alk Phos: 180 Units/Liter -- Normal range between ( 27 and 136 ) Protein Total: 6.4 Gram/dL -- Normal range between ( 6.4 and 8.2 ) Albumin Level: 3.6 Gram/dL -- Normal range between ( 3.4 and 5.0 ) 05/26/2020 4:07 PM Sodium POC: 135 mmol/L -- Normal range between ( 138 and 146 ) Ca Ioniz POC: 1.52 mmol/L -- Normal range between ( 1.12 and 1.32 ) Potassium POC: 4.6 mmol/L -- Normal range between ( 3.5 and 4.9 ) Creatinine POC: 1.7 mg/dL -- Normal range between ( 0.6 and 1.3 ) BUN POC: 31 mg/dL -- Normal range between ( 8 and 26 ) CO2 POC: 21.0 mmol/L -- Normal range between ( 24.0 and 29.0 ) Chloride POC: 106 mmol/L -- Normal range between ( 98 and 109 ) Glucose POC: 32 mg/dL -- Normal range between ( 70 and 105 ) Anion Gap POC: 14.0 mmol/L -- Normal range between ( 10.0 and 20.0 ) 05/26/2020 2:23 PM Amylase Level: 114 Units/Liter -- Normal range between ( 25 and 115 ) Lactic Acid Level: 0.9 mmol/L -- Normal range between ( 0.4 and 2.0 ) Lipase Level: 206 Units/Liter -- Normal range between ( 73 and 393 ) Cardiac Specific Markers 05/26/2020 2:23 PM Troponin I Ultra: <0.015 ng/mL -- Normal range between ( 0.015 and 0.045 ) ProBNP: 135 pg/mL -- Normal range between ( 0 and 125 ) Coagulation 05/27/2020 4:09 AM INR: 0.9 -- Normal range between ( 0.9 and 1.1 ) PT: 9.9 Second(s) -- Normal range between ( 9.6 and 12.0 ) Endocrinology 05/27/2020 4:09 AM TSH: 0.710 mcInt Units/mL -- Normal range between ( 0.358 and 3.740 ) Diagnostic Radiology 05/26/2020 2:40 PM CR Chest 2 Vws: CR Chest 2 Vws Patient Name:KRAMER SALIMA C I have received and understand this information and was given the opportunity to ask questions. Patient/Soubrette Name: Patient/Soubrette Signature: Relationship to Patient: Clinician/Hospital Soubrette Signature: Date: documented in this encounter Plan of Treatment Not on file documented as of this encounter Visit Diagnoses Not on filedocumented in this encounter
--- OUTSIDE RECORDS SUMMARY | 2025-02-23 12:34 | XMS_ITS | Encounter Summary ---
Author Organization [employer] ([place], [place], [place], [place]) Address [address] [place] [address] Care Team Providers Care Purchasing Contracting Clerk Name Role Phone Unavailable Primary Care Provider Unavailabl e Encounter Details Date Type Department Care Team (Late st Contact Info) Description 12/23/2019 Transcribed Document [facility] [place] [address] [place] [address] ProviderNuha MD [address] [place] [address] Social History Tobacco Use Types Packs/Day Years Used Date Smoking Tobacco: Never Assessed Comments Unknown Sex and Gender Information Value Date Recorded Sex Assigned at Not on file Legal Sex Female 2:42 PM CDT Gender Identity Not on file Sexual Orientation Not on file documented as of this encounter Miscellaneous Notes * Cerner Conversion Note - Historical ProviderMD - 12/23/2019 5:00 AM CDT Chart Check - Review Order Profile Entered On: 12/23/2019 4:26 EDT Performed On: 12/23/2019 5:00 EDT by Kavita Burrell Lpn Chart Check Powerplans Initiated/Discontinued as Appropriate : Yes All Active Orders Reviewed : Yes Kavita Burrell Lpn - 12/23/2019 4:25 EDT documented in this encounter Plan of Treatment Not on file documented as of this encounter Visit Diagnoses Not on filedocumented in this encounter
--- OUTSIDE RECORDS SUMMARY | 2025-02-23 12:34 | XMS_ITS | Encounter Summary ---
Author Organization [employer] ([place], [place], [place], [place]) Address [address] [place] [address] Care Team Providers Care Multimedia Manager Name Role Phone Unavailable Primary Care Provider Unavailabl e Encounter Details Date Type Department Care Team (Late st Contact Info) Description 12/23/2019 Transcribed Document [place] [facility] [place] [address] ProviderNuha MD [facility] [place] [address] Social History Tobacco Use Types Packs/Day Years Used Date Smoking Tobacco: Never Assessed Comments Unknown Sex and Gender Information Value Date Recorded Sex Assigned at Not on file Legal Sex Female 2:42 PM CDT Gender Identity Not on file Sexual Orientation Not on file documented as of this encounter Miscellaneous Notes * Cerner Conversion Note - Nuha ProviderMD - 12/23/2019 3:03 PM CDT Patient: NATE KRAMER Age: 69 years Sex: Female : 1950 Associated Diagnoses: None Author: DAVID JUDD MD-[facility] Basic Information Time Seen: Date & Time 12/23/2019 15:03:00. Source of history: Nurse, Medical personnel, Medical record, Patient. History limitation: None. History of Present Illness [ Is an [...] No diarrhea constipation. No dysuria or hematuria.] QUISENBERRY, ANNELISE E, MD-INT Patient is a very pleasant 61-year-old [...] RT_Q6H, PRN: Shortness of Breath Flonase: 1 [place], Nasal, BID Florastor: 250 mg, Oral, Daily, [...] transdermal film, extended release: 1 Patch, Topical, [id number] furosemide: 20 mg, Oral, At Bedtime gabapentin: [...] Oral, Daily Documented Medications Documented Flonase: 1 [place], Nasal, BID, 0 Refill(s) Florastor 250 mg [...] oral tablet, extended release: 1 Tab, Oral, [id number], 0 Refill(s) cyanocobalamin: 2,500 mcg, Oral, Daily, 0 Refill(s) fentaNYL 25 mcg/hr transdermal film, extended release: 25 mcg/Hr, Topical, [id number], 0 Refill(s) furosemide: 20 mg, Oral, At [...] 0.25 mg, Oral, BID, 0 Refill(s), Medications (25) Active Scheduled: (15) acetaminophen 500 [...] mcg/hr 72 hr patch 1 Patch, Topical, [id number] fluticasone 0.05% nasal spray 1 [place], Nasal, BID furosemide 20 mg tab 20 [...] list: Medical Allergic rhinitis / SNOMED CT 578363047 / Confirmed Asthma / SNOMED CT 463487615 / Confirmed Back pain / SNOMED CT 1242068915 / Confirmed Back problem//multiple fractures / SNOMED CT 373336103 / Confirmed BBB (bundle branch block)//right / SNOMED CT 76387068 / Confirmed Cataract//extraction / SNOMED CT 315253505 / Confirmed Chronic diarrhea / SNOMED CT 892135568 / Confirmed Difficulty walking//walker / SNOMED CT 7427091959 / Confirmed Dental disorder//bottom teeth extraction//stitches intact / SNOMED CT 6006982759 / Confirmed Dizziness / SNOMED CT 5581994501 / Confirmed Fistula//colon//bladder//vaginia / SNOMED CT 5114651358 / Confirmed Ribs, multiple fractures / SNOMED CT 1689122 / Confirmed GERD - Gastro-esophageal reflux disease / SNOMED CT 4815163186 / Confirmed History of obstructive sleep apnea / IMO 16807865 / Confirmed Hypotension / SNOMED CT 080814514 / Confirmed Skin cancer / SNOMED CT 8121083991 / Confirmed Multiple myeloma / SNOMED CT 629185349 / Confirmed Restless legs syndrome / SNOMED CT 33874713 / Confirmed Sinusitis / SNOMED CT 34637343 / Confirmed Sleep apnea//no machine / SNOMED CT 687950675 / Confirmed Urinary tract infection//jul 2018 / SNOMED CT 860358265 / Confirmed, Active Problems (21) Allergic rhinitis [...] at 23 Years. c/section. Comments: 12/18/2019 11:55 KAITLYNT - ANTONIO MCDONALD RN 1974 and 1976 [...] (DEC 22 03:29) 100 (DEC 21 18:00) General: Alert and oriented, No acute distress. [...] mg/dL followed up by Dr. Medina in [place]. I will try to get the records from his office. 2. Acute kidney injury most probably secondary to the use of nonsteroidal anti-inflammatories and Alvarez 2 inhibitors over the last 24 hours and volume depletion secondary to high output ileostomy. I will keep the patient well hydrated. 3. Hyperkalemia secondary to the use of nonsteroidal anti-inflammatories and acute kidney injury. Continue with the current IV fluids, resolved. 4. Status post ileostomy, continued to monitor intake and output and keep the patient's well-hydrated 5. Multiple myeloma in remission under the care of her local oncologist. She held the chemotherapy before surgery. documented in this encounter Plan of Treatment Not on file documented as of this encounter Visit Diagnoses Not on filedocumented in this encounter
--- OUTSIDE RECORDS SUMMARY | 2025-02-23 12:34 | XMS_ITS | Encounter Summary ---
Author Organization [employer] ([place], [place], [place], [place]) Address [address] [place] [address] Care Team Providers Care Water Commissioner Name Role Phone Unavailable Primary Care Provider Unavailabl e Encounter Details Date Type Department Care Team (Late st Contact Info) Description 12/23/2019 Transcribed Document [facility] [place] Family Medicine [facility] [place] [address] ProviderNuha MD [address] [place] [address] Social History Tobacco Use Types [...] AM CDT Pain Assessment Entered On: 12/23/2019 6:07 EDT Performed On: 12/23/2019 6:20 EDT by Kavita Burrell Lpn Intervention Information: ketorolac Performed by Kavita Burrell Lpn on 12/23/2019 05:50:00 EDT ketorolac,15mg IV Push,Left Lower Forearm Pain Assessment Pain Assessment : Follow-up assessment Pain Scale Goal : 3 Pain Scale Used : 0-10 Scale Kavita Burrell Lpn - 12/23/2019 6:07 EDT Pain Scale Intensity : 1 Kavita Burrell Lpn - 12/23/2019 6:07 EDT Image 4 - Images currently included in the form version of this document have not been included in the text rendition version of the form. documented in this encounter Plan of Treatment Not on file documented as of this encounter Visit Diagnoses Not on filedocumented in this encounter
--- OUTSIDE RECORDS SUMMARY | 2025-02-23 12:34 | XMS_ITS | Encounter Summary ---
Author Organization [employer] ([place], [place], [place], [place]) Address [address] [place] [address] Care Team Providers Care Real Estate Associate Attorney Name Role Phone Unavailable Primary Care Provider Unavailabl e Encounter Details Date Type Department Care Team (Late st Contact Info) Description 12/23/2019 Transcribed Document [facility] [place] Family Medicine [address] [place] [address] ProviderNuha MD [address] [place] [address] Social History Tobacco Use Types Packs/Day Years Used Date Smoking Tobacco: Never Assessed Comments Unknown Sex and Gender Information Value Date Recorded Sex Assigned at Not on file Legal Sex Female 2:42 PM CDT Gender Identity Not on file Sexual Orientation Not on file documented as of this encounter Miscellaneous Notes * Cerner Conversion Note - Historical ProviderMD - 12/23/2019 2:00 AM CDT Privacy Manager Details Entered On: 12/23/2019 1:24 EDT Performed On: 12/23/2019 2:00 EDT by Kavita Burrell Lpn Order Details Transport Mode Order Detail : Wheelchair Isolation Precautions Order Detail : Standard Precautions Order Detail : 0 IV Order Detail : 1 Oxygen Order Detail : 0 Nurse Collect Order Detail : 0 Lift/Transfer : Moderate assist Central Line Order Detail : No Room Service : Not Appropriate Arterial Line : No Kavita Burrell Lpn - 12/23/2019 1:24 EDT documented in this encounter Plan of Treatment Not on file documented as of this encounter Visit Diagnoses Not on filedocumented in this encounter
--- OUTSIDE RECORDS SUMMARY | 2025-02-23 12:35 | XMS_ITS | Encounter Summary ---
Author Organization [employer] ([place], [place], [place], [place]) Address [address] [place] [address] Care Team Providers Care Community Director Name Role Phone Unavailable Primary Care Provider Unavailabl e Encounter Details Date Type Department Care Team (Late st Contact Info) Description 05/26/2020 Transcribed Document [facility] [place] Medicine [address] [place] [address] ProviderNuha MD [address] [place] [address] Social History Tobacco Use Types Packs/Day Years Used Date Smoking Tobacco: Never Assessed Comments Unknown Sex and Gender Information Value Date Recorded Sex Assigned at Not on file Legal Sex Female 2:42 PM CDT Gender Identity Not on file Sexual Orientation Not on file documented as of this encounter Miscellaneous Notes * Cerner Conversion Note - Historical ProviderMD - 05/26/2020 1:25 PM METAL BASE BLOCKER Event Note Entered On: 05/26/2020 13:27 EST Performed On: 05/26/2020 13:25 EST by Aparna Le RN Event Note Event Date/Time : 05/26/2020 13:00 EST Description of Event : Dr. Deluca in to see pt. Discussed dangerously high potassium level with her. Advised pt to go to ER. Pt's notified and discussed situation with him. Pt transported to ER via wheelchair, accompanied by . Dr. Deluca discussed with Dr. Decker. Aparna Le, RN - 05/26/2020 13:25 EST documented in this encounter Plan of Treatment Not on file documented as of this encounter Visit Diagnoses Not on filedocumented in this encounter
--- OUTSIDE RECORDS SUMMARY | 2025-02-23 12:35 | XMS_ITS | Encounter Summary ---
Author Organization [employer] ([place], [place], [place], [place]) Address [address] [place] [address] Care Team Providers Care Shim Plug Cutter Name Role Phone Unavailable Primary Care Provider Unavailabl e Encounter Details Date Type Department Care Team (Late st Contact Info) Description 05/26/2020 Transcribed Document [facility] Radiology [address] [place] [address] Jim Bravo MD [address] [place] [id number] Social History Tobacco Use Types Packs/Day Years Used Date Smoking Tobacco: Never Assessed Comments Unknown Sex and Gender Information Value Date Recorded Sex Assigned at Not on file Legal Sex Female 2:42 PM CDT Gender Identity Not on file Sexual Orientation Not on file documented as of this encounter Miscellaneous Notes * Cerner Conversion Note - Jim Bravo MD - 05/26/2020 5:35 PM EST Patient: NATE KRAMER Age: 69 years Sex: Female : 1950 Associated Diagnoses: None Author: JIM BRAVO MD Basic Information Source of history: Self, Spouse, Medical record. Present at bedside: Family member, Medical personnel. Referral source: Emergency department. History limitation: Clinical condition. Primary Care Provider THAD CORTEZ MD-[facility] Chief Complaint 05/26/2020 13:32 EST pt had abn labs today when she was having her screening for SX on saturday, K is over 7, History of Present Illness This is a 69 years old female [...] showed peaked T wave, Dr. JUDD her physical therapist technician was contacted, hyper kalemia protocol was started, patient was given IV insulin regular with D50, patient become hypoglycemic, another amp of D50 was pushed and D5 half-normal saline was started, potassium repeat was 4.5, patient will be admitted for further evaluation and treatment. Review of Systems Constitutional: [No fevers, chills, sweats] Eye: [No recent visual problems, eye discharge, eye pain, redness] HEENT: [No ear pain, nasal congestion, sore throat, voice changes] Respiratory: [No shortness of breath, cough, pain on breathing, sputum production] Cardiovascular: [No Chest pain, palpitations, syncope, shortness of breath while laying flat] Gastrointestinal: Nausea, vomiting, abdominal discomfort Genitourinary: [No hematuria, dysuria, incontinence, lesions on genitalia] Asher/Lymph: [Negative for bruising tendency, swollen lymph glands, nosebleeds, history of anticoagulation] Endocrine: [Negative for excessive thirst, excessive hunger, excessive urination, heat or cold intolerance] Musculoskeletal: [No back pain, neck pain, joint pain, muscle pain, decreased range of motion] Integumentary: [No rash, pruritus, abrasions, lesions] Neurologic: [No weakness, numbness, frequent headaches, tremors, blackouts ] Psychiatric: [No anxiety, depression, mood changes, hallucinations] Health Status Allergies: Allergic Reactions (Selected) Severity Not Documented Meperidine- Hypotension. Sulfa drugs- Hives., Allergies (2) Active Reaction meperidine Hypotension sulfa drugs Hives Current medications: (Selected) Inpatient Medications Ordered D5-0.45NaCl 1,000 mL: 75 mL/Hr, IntraVENous Dulcolax Laxative: 5 mg, Oral, Daily, PRN: Constipation DuoNeb 0.5 mg-2.5 mg/3 mL inhalation solution: 3 mL, Nebulized Inhalation, Q6H, PRN: Shortness of Breath Lokelma: 10 Gram, Oral, 1-Time Normal Saline 1,000 mL: 999 mL/Hr, IntraVENous Normal Saline 1,000 mL: 999 mL/Hr, IntraVENous Restoril: 15 mg, Oral, At Bedtime, PRN: Sleep Tylenol: 650 mg, Oral, Q4H, PRN: Pain (Mild 1-3) Zofran: 4 mg, IV Push, Q4H, PRN: Nausea aspirin: 81 mg, Oral, At Bedtime cyanocobalamin: 2,500 mcg, Oral, Daily ferrous sulfate: 325 mg, Oral, Daily gabapentin: 600 mg, Oral, TID loperamide: 1 mg, Oral, BID magnesium oxide: 400 mg, Oral, BID montelukast: 10 mg, Oral, At Bedtime morphine: 2 mg, IV Push, Q6H, PRN: Pain (Severe 7-10) oxyCODONE: 10 mg, Oral, Q6H pantoprazole: 40 mg, Oral, Daily rOPINIRole: 0.25 mg, Oral, BID Incomplete Revlimid 2.5 mg oral capsule: 2.5 mg, 1 Cap, Oral, Daily buPROPion 150 mg/24 hours (XL) oral tablet, extended release: 150 mg, 1 Tab, Oral, [id number] fentaNYL 37.5 mcg/hr transdermal film, extended release: 1 Patch, Topical, [id number] Documented Medications Documented Magic Mouthwash: Swish and Spit, Q6H, PRN: muccositis, 0 Refill(s) Mucinex 600 mg oral tablet, extended release: 2 Tab, Oral, Q12H, PRN: Cough, 0 Refill(s) Proventil HFA 90 mcg/inh inhalation aerosol: 2 Puff, Inhalation, Q4H, PRN: as needed for wheezing, 0 Refill(s) Revlimid 2.5 mg oral capsule: 1 Cap, Oral, Daily, 10 Cap, 0 Refill(s) aspirin: 81 mg, Oral, At Bedtime, 0 Refill(s) buPROPion 150 mg/24 hours (XL) oral tablet, extended release: 1 Tab, Oral, [id number], 0 Refill(s) cyanocobalamin: 2,500 mcg, Oral, Daily, 0 Refill(s) fentaNYL 37.5 mcg/hr transdermal film, extended release: 37.5 mcg/Hr, Topical, [id number], 0 Refill(s) ferrous sulfate 325 mg (65 mg elemental iron) oral delayed release tablet: 1 Tab, Oral, Daily, 0 Refill(s) gabapentin 300 mg oral capsule: 2 Cap, Oral, TID, 0 Refill(s) loperamide: 1 mg, Oral, BID, 0 Refill(s) magnesium oxide: 400 mg, Oral, BID, 0 Refill(s) methenamine hippurate 1 g oral tablet: 0.5 Tab, Oral, BID, 0 Refill(s) montelukast: 10 mg, Oral, At Bedtime, 0 Refill(s) nystatin 100,000 units/g topical cream: 1 Application, Topical, BID, 0 Refill(s) omeprazole: 40 mg, Oral, Daily, 0 Refill(s) ondansetron 8 mg oral tablet: 1 Tab, SubLINgual, TID, PRN: Nausea, 0 Refill(s) oxyCODONE 10 mg oral tablet: 1 Tab, Oral, Q6H, 0 Refill(s) rOPINIRole: 0.25 mg, Oral, BID, 0 Refill(s) Problem list: Active Problems (23) Allergic rhinitis Asthma Back pain Back problem//multiple [...] tract infection//jul 2018 Histories Past Medical History: Active Problems (23) Allergic rhinitis Asthma Back pain Back problem//multiple fractures BBB (bundle branch block)//right Cataract//extraction Chronic diarrhea Dental disorder//bottom teeth extraction//stitches intact Difficulty walking//walker Dizziness Fistula//colon//bladder//v[place] GERD - Gastro-esophageal reflux disease History of obstructive sleep apnea Hyperkalemia Hypotension 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 Multiple myeloma Restless legs syndrome Ribs, multiple fractures Sinusitis Skin cancer Sleep apnea//no machine Urinary tract infection//jul 2018 Family History: Significant for cancer Procedure history: low anterior resection with loop [...] 24 hrs) Last Charted Minimum Maximum Temp 97.6 (MAY 26:32) 97.6 (MAY 26:) 97.6 (MAY 26:) Mon HR 62 (MAY 26:) 62 (MAY 26:) 62 (MAY 26:) Periph HR 61 (MAY 26:32) 61 (MAY 26:32) 61 (MAY 26:) Resp Rate 16 (MAY 26:02) 16 (MAY 26 14:) 18 (MAY 26:32) SBP 112 (MAY 26 14:02) 103 (MAY 26 13:32) 112 (MAY 26 14:02) DBP 80 (MAY 26 14:02) L 57 (MAY 26:32) 80 (MAY 26 14:02) MAP 92 (MAY 26:) 92 (MAY 26 14:02) 92 (MAY 26 14:02) SpO2 99 (MAY 26 14:02) 97 (MAY 26 13:32) 99 (MAY 26 14:02) GENERAL: The patient is a well-developed, well-nourished, clammy, mild distress . alert and oriented x3. Head : is normocephalic and atraumatic. EYES: Extraocular muscles are intact. Pupils are equal, round, and reactive to light and accommodation. NECK: Supple. No carotid bruits. No lymphadenopathy or thyromegaly. LUNGS: Clear to auscultation. No added sounds. No tenderness HEART: Regular rate and rhythm without murmur. No heave ABDOMEN: Soft, nontender, and nondistended. Positive bowel sounds. No hepatosplenomegaly was noted. EXTREMITIES: Without any cyanosis, clubbing, rash, lesions or edema. PSYCHIATY: Anxious and cooperative SKIN: No ulceration or induration present. Musculoskeletal : No joint pain, swelling or tenderness Review / Management Results review: Labs (Last four charted values) Na L 133 (MAY 26) K H 5.7 (MAY 26) Cl 106 (MAY 26) CO2 22 (MAY 26) BUN H 32 (MAY 26) Cr H 1.80 (MAY 26) Glu R 86 (MAY 26) Ca 10.1 (MAY 26) Lactic 0.9 (MAY 26) PT 9.9 (MAY 26) INR 0.9 (MAY 26) AST 22 (MAY 26) ALT 41 (MAY 26) ALK P H 171 (MAY 26) T Bili 0.4 (MAY 26) PTN L 6.2 (MAY 26) ALB L 3.3 (MAY 26) Lipase 206 (MAY 26) Troponin <0.015 (MAY 26) . Radiology Results (Last 48 hours) [id number] -- 05/26/2020 16:08 CR Chest 2 Vws (05/26/2020 14:40) Result: TWO VIEW CHEST 05/26/2020 2:20 PMHISTORY: Precordial chest pain . COMPARISON: December 18, 2019.FINDINGS: Right IJ catheter tip terminates within the SVC. The heart is normal in size . The mediastinum is unremarkable . The lungs are wellexpanded and clear. There is no pneumothorax . The osseous structuresdemonstrate multilevel kyphoplasty. IMPRESSION: No acute cardiopulmonary process .Images reviewed, interpreted, and dictated by Dr. Jluis Maddox.Transcribed by Gopal Pate PA-C, R.T. (N), Vee Hood T.I have personally viewed, interpreted and dictated the examination. Feliz read and agree with the above final transcribed report. Impression and Plan 1. Severe life-threatening hyperkalemia Hyperkalemia protocol started Patient received 10 units of regular insulin IV D50 was started Potassium level improved, patient had EKG changes Watch patient on intensive care unit for now Repeat potassium level in a.m. Nephrology consulted 2. Acute kidney injury on top of chronic kidney disease stage III Gentle hydration Avoid nephrotoxic medication Watch kidney function closely Nephrology consulted 3. Severe dehydration Gentle hydration Encourage oral intake 4. Insulin induced hypoglycemia Status post 2 amp of D50 We will start D5 half-normal saline We will check blood glucose every hour for now 5. 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 Decker DVT prophylaxis GI prophylaxis Past medical history reviewed Labs reviewed Medications reviewed CODE STATUS full code Discussed with ER physician Complex case Time spent 50 minutes documented in this encounter Plan of Treatment Not on file documented as of this encounter Visit Diagnoses Not on filedocumented in this encounter
--- OUTSIDE RECORDS SUMMARY | 2025-02-23 12:35 | XMS_ITS | Encounter Summary ---
Author Organization [employer] ([place], [place], [place], [place]) Address [address] [place] [address] Care Team Providers Care Oyster Planter Name Role Phone Unavailable Primary Care Provider Unavailabl e Encounter Details Date Type Department Care Team (Late st Contact Info) Description 06/01/2020 Transcribed Document [facility] Family Medicine [address] [place] [address] ProviderNuha MD [address] [place] [address] Social History Tobacco Use Types Packs/Day Years Used Date Smoking Tobacco: Never Assessed Comments Unknown Sex and Gender Information Value Date Recorded Sex Assigned at Not on file Legal Sex Female 2:42 PM CDT Gender Identity Not on file Sexual Orientation Not on file documented as of this encounter Miscellaneous Notes * Cerner Conversion Note - Historical ProviderMD - 06/01/2020 2:33 PM DAIRY EQUIPMENT SPECIALIST On Going Discharge Planning Entered On: 06/01/2020 14:34 EST Performed On: 06/01/2020 14:33 EST by DILMA SLOAN RN-Holiday Detector OperatorDevelopmental Education Instructor Progress Note Discharge Arrangements : Patient Post-Acute Information Patient Name: NATE KRAMER Gender: Female : [birth year] Age: 69 Years No Post-Acute Placement(s) Listed No Post-Acute Service(s) Listed No [place] Referral(s) Listed Is the Patient Meeting Medical Necessity : Yes Did you Attend Multidisciplinary Rounds? : Yes DILMA SLOAN, RN-Holiday Detector Operator - 06/01/2020 14:33 EST Narrative Progress Note Narrative Progress Note : cm spoke to patient. patient has had caretenders for hh . cm will resume if needed at discharge . cm will arrange for any home needs . family to transport at discharge DCP: home vs hh DILMA SLOAN RN-Holiday Detector Operator - 06/01/2020 14:33 EST Electronically signed by Bacilio [facility] Conversion Pension Examiner Cerner at 11/05/2022 5:56 PM CDT documented in this encounter Plan of Treatment Not on file documented as of this encounter Visit Diagnoses Not on filedocumented in this encounter
--- OUTSIDE RECORDS SUMMARY | 2025-02-23 12:35 | XMS_ITS | Encounter Summary ---
Author Organization [employer] ([place], [place], [place], [place]) Address [address] [place] [address] Care Team Providers Care Clock Maker Name Role Phone Unavailable Primary Care Provider Unavailabl e Encounter Details Date Type Department Care Team (Late st Contact Info) Description 12/22/2019 Transcribed Document [facility] [place] [facility] [place] [address] ProviderNuha MD [address] [place] [address] Social History Tobacco Use Types Packs/Day Years Used Date Smoking Tobacco: Never Assessed Comments Unknown Sex and Gender Information Value Date Recorded Sex Assigned at Not on file Legal Sex Female 2:42 PM CDT Gender Identity Not on file Sexual Orientation Not on file documented as of this encounter Miscellaneous Notes * Cerner Conversion Note - Nuha ProviderMD - 12/22/2019 8:18 AM CDT Procedural Documentation Entered On: 12/22/2019 8:21 EDT Performed On: 12/22/2019 8:18 EDT by RADHA HOUSTON RN Procedure Documentation Procedure to be Performed : hyacinth taps block Time Out Pause Time : 12/22/2019 7:18 EDT All Activity Suspended : Yes Team Verbally Confirms Information : Correct patient identity, Correct side and site are marked, Consent form is present and accurate, Agreement on the procedure to be done, Correct patient position, Relevant images/results properly labeled/appropriately displayed, Confirm the skin prep has dried Procedure Performed : see above Proper Use of Sterile Apparel per Policy : Yes Procedure Case Attendee : ALEXANDER AVILA MD-ANS Procedure Case Attendee Role : Anesthesiologist Procedure Case Attendee Role 2 : educational institution curator Case Attendee 2 : Jenn Jensen, Nurse Public Health Professor RADHA HOUSTON RN - 12/22/2019 8:18 EDT Malika Level I Post Anesthesia Assessment Malika I Activity Status : Moves 4 extremities voluntarily or on command Malika l Respiratory Component : Able to deep breathe and cough freely Malika I Circulation Component : BP 20% of preanesthetic level Malika I Consciousness : Arouses on calling Malika l Oxygen Saturation : Needs oxygen to maintain > 92% Malika l Score : 8 RADHA HOUSTON RN - 12/22/2019 8:18 EDT Vital Measurements Peripheral Pulse Rate : 80 bpm Pulse Rhythm : Regular Respiratory Rate : 16 Breaths/Min Blood Pressure Location : Arm, right upper Blood Pressure Source : Non-Invasive BP Device Blood Pressure Position : Supine Systolic Blood Pressure : 130 mmHg Diastolic Blood Pressure : 60 mmHg Oxygen Saturation : 100 % Oxygen Therapy Mode : Nasal cannula Oxygen Flow Rate : 2 Liter/Min RADHA HOUSTON RN - 12/22/2019 8:18 EDT documented in this encounter Plan of Treatment Not on file documented as of this encounter Visit Diagnoses Not on filedocumented in this encounter
--- OUTSIDE RECORDS SUMMARY | 2025-02-23 12:35 | XMS_ITS | Encounter Summary ---
Author Organization [employer] ([place], [place], [place], [place]) Address [address] [place] [address] Care Team Providers Care Communications Systems Engineer Name Role Phone Unavailable Primary Care Provider Unavailabl e Encounter Details Date Type Department Care Team (Late st Contact Info) Description 12/23/2019 Transcribed Document [facility] [place] Family Medicine [address] [place] [address] ProviderNuha MD [address], [place] [id number] Social History Tobacco Use Types Packs/Day Years Used Date Smoking Tobacco: Never Assessed Comments Unknown Sex and Gender Information Value Date Recorded Sex Assigned at Not on file Legal Sex Female 2:42 PM CDT Gender Identity Not on file Sexual Orientation Not on file documented as of this encounter Miscellaneous Notes * Cerner Conversion Note - Historical ProviderMD - 12/23/2019 7:46 AM CDT Patient: NATE KRAMER Age: 69 years Sex: Female : 1950 Associated Diagnoses: None Author: BHUPENDRA MARISCAL MD-PRO Overall doing well. No signs of complications. Incision looks good. Stoma is working and healthy-appearing. She denies abdominal pain. Back pain. Chronic. Feels better sitting up in the chair. Drain is low output and serosanguineous. Encouraged ambulation, incentive spirometer, advance diet. Coleman out. Oral pain medications. Stoma teaching. Home as soon as tomorrow but likely Saturday Electronically signed by Bacilio [facility] Conversion Notch Machine Operator Cerner at 11/05/2022 6:01 PM CDT documented in this encounter Plan of Treatment Not on file documented as of this encounter Visit Diagnoses Not on filedocumented in this encounter
--- OUTSIDE RECORDS SUMMARY | 2025-02-23 12:35 | XMS_ITS | Encounter Summary ---
Author Organization [employer] ([place], [place], [place], [place]) Address [address] [place] [address] Care Team Providers Care Piece Jobber Name Role Phone Unavailable Primary Care Provider Unavailabl e Encounter Details Date Type Department Care Team (Late st Contact Info) Description 05/26/2020 Transcribed Document [facility] [place] [facility] [place] [address] ProviderNuha MD [address] [place] [address] Social History Tobacco Use Types Packs/Day Years Used Date Smoking Tobacco: Never Assessed Comments Unknown Sex and Gender Information Value Date Recorded Sex Assigned at Not on file Legal Sex Female 2:42 PM CDT Gender Identity Not on file Sexual Orientation Not on file documented as of this encounter Miscellaneous Notes * Cerner Conversion Note - Nuha ProviderMD - 05/26/2020 4:02 PM 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 History source: Patient. Arrival mode: Private vehicle. History limitation: None. Additional information: Chief Complaint from Nursing Triage Note : Chief Complaint 05/26/2020 13:32 EST Chief Complaint pt had abn labs today when she was having her screening for SX on saturday, K is over 7, . History of Present Illness Patient presents to the ER today after being seen in preadmission testing. Patient is scheduled to have ileostomy reversal on Saturday. Patient had preop labs drawn and potassium was 7.8. Patient does complain of some nausea and not feeling well today. Patient does have EKG changes. She is alert and in no acute distress at this time. Review of Systems Constitutional symptoms: No fever, no chills. Skin symptoms: No jaundice, Respiratory symptoms: No shortness of breath, no orthopnea. Cardiovascular symptoms: No chest pain, no palpitations. Gastrointestinal symptoms: Nausea, no abdominal pain, no vomiting, no diarrhea. Genitourinary symptoms: Negative except as documented in HPI. Musculoskeletal symptoms: Negative except as documented in HPI. Neurologic symptoms: Negative except as documented in HPI. Psychiatric symptoms: Negative except as documented in HPI. Endocrine symptoms: Negative except as documented in HPI. Hematologic/Lymphatic symptoms: Negative except as documented in HPI. Allergy/immunologic symptoms: Negative except as documented in HPI. Health Status Allergies: Allergic Reactions (Selected) Severity Not Documented Meperidine- Hypotension. Sulfa drugs- Hives.. Medications: (Selected) Inpatient Medications Ordered Lokelma: 10 Gram, Oral, 1-Time Normal Saline 1,000 mL: 999 mL/Hr, IntraVENous Normal Saline 1,000 mL: 999 mL/Hr, IntraVENous Documented Medications Documented Magic Mouthwash: Swish and [...] oral tablet, extended release: 1 Tab, Oral, [id number], 0 Refill(s) cyanocobalamin: 2,500 mcg, Oral, Daily, 0 Refill(s) fentaNYL 37.5 mcg/hr transdermal film, extended release: 37.5 mcg/Hr, Topical, [id number], 0 Refill(s) ferrous sulfate 325 mg (65 [...] Refill(s) rOPINIRole: 0.25 mg, Oral, BID, 0 Refill(s). Past Medical/ Family/ Social History Surgical history: low anterior resection with loop ileostomy [...] 1976 kyphoplasty//x4. left elbow surgery//plates and screws. colonoscopy., Reviewed as documented in chart. Family history: No family history items have been selected or recorded., Reviewed as documented in chart. Social history: Social & Psychosocial Habits Alcohol 12/18/2019 Alcohol Use History, Social Habits No Home/Environment 12/18/2019 Lives with: Spouse Home equipment: Respiratory treatments, Walker/Cane Substance Abuse 12/18/2019 Recreational Drug Use History No Recreational Drug Use Last 12 Months No Tobacco 12/18/2019 Smoking Status Never (less than 100 in l Smokeless Tobacco Status Never , Reviewed as documented in chart. Problem list: Active Problems (23) Allergic rhinitis [...] Sleep apnea//no machine Urinary tract infection//jul 2018 , per nurse's notes. Physical Examination Vital Signs Vital Signs/Vital Measures 05/26/2020 14:02 EST Systolic Blood Pressure 112 mmHg Diastolic Blood Pressure 80 mmHg Mean Arterial Pressure (MAP)-BMDI 92 Heart Rate Monitored 62 bpm Respiratory Rate 16 Breaths/Min Oxygen Saturation 99 % Oxygen Therapy Mode Room air 05/26/2020 13:32 EST Systolic Blood Pressure 103 mmHg Diastolic Blood Pressure 57 mmHg LOW Temperature Source Oral Temperature Mode Fahrenheit Temperature, Fahrenheit 97.6 Deg F Clinical Temperature, C 36.4 Deg C Peripheral Pulse Rate 61 bpm Respiratory Rate 18 Breaths/Min Oxygen Saturation 97 % Oxygen Therapy Mode Room air 05/26/2020 12:33 EST Blood Pressure Location Arm, left upper Blood Pressure Source Non-Invasive BP Device Blood Pressure Position Sitting Systolic Blood Pressure 97 mmHg Diastolic Blood Pressure 62 mmHg Temperature Source Temporal artery scanning Temperature, Fahrenheit 98.2 Deg F Clinical Temperature, C 36.8 Deg C Pulse Method Pulse Oximetry Peripheral Pulse Rate 66 bpm Respiratory Rate 20 Breaths/Min Oxygen Saturation 100 % Oxygen Therapy Mode Room air . Measurements 05/26/2020 13:32 EST Height Source Stated Height Entry Format Titus Height/Length, SAMMARINESE (ft) 5 ft Height/Length SAMMARINESE 3 Inch CLINICALHEIGHT 160.02 cm [place] Body Weight 52.02 kg Weight Source, ED Critical estimated dosing weight Weight Entry Format Titus Weight [place] lb 162 lb CLINICALWEIGHT 73.64 kg Body Surface Area (BSA) 1.77 m2 Body Mass Index 28.8 kg/m2 HI 05/26/2020 12:33 EST Height Source Measured Height Entry Format Titus Height/Length, SAMMARINESE (ft) 0 ft Height/Length SAMMARINESE 63 Inch CLINICALHEIGHT 160.02 cm [place] Body Weight 52 kg Weight Source Standing scale Weight Entry Format Titus Weight [place] lb 162 lb CLINICALWEIGHT 73.64 kg Body Surface Area (BSA) 1.77 m2 Body Mass Index 28.8 kg/m2 HI . Oxygen Saturation 05/26/2020 14:02 EST Oxygen Saturation 99 % 05/26/2020 13:32 EST Oxygen Saturation 97 % 05/26/2020 12:33 EST Oxygen Saturation 100 % . General: Alert, no acute distress. Skin: Warm, pink, intact. Cardiovascular: Regular rate and rhythm. Respiratory: Lungs are clear to auscultation, respirations are non-labored. Gastrointestinal: Soft, Nontender, Non distended, illeostoma in place. normal output. stoma pink. Musculoskeletal: Normal ROM. Neurological: Alert and oriented to person, place, time, and situation. Lymphatics: No lymphadenopathy. Psychiatric: Cooperative. Medical Decision Making Differential Diagnosis: Electrolyte imbalance, hyperkalemia, prolonged INR, renal insufficiency, renal failure, metabolic acidosis, dysrhythmia. Differential Diagnosis: Abdominal pain, dehydration, diabetic ketoacidosis. Orders Include Previous Orders (Selected) Inpatient Orders Ordered Broset Violence Assessment: Cardiac Monitoring: ED Adult Fall Risk Assessment: ED C-SSRS: ED Clinical Reconciliation: ED Isolation: ED inspector government property: EKG: Isolation: Lokelma: 10 Gram, Oral, 1-Time Normal Saline 1,000 mL: 999 mL/Hr, IntraVENous Normal Saline 1,000 mL: 999 mL/Hr, IntraVENous Pulse Oximetry Continuous Monitoring: Saline Lock Insert: Ordered (Dispatched) CK Creatine Kinase: CMP Comprehensive Metabolic Panel: Urinalysis w Microscopic: . manager payment: Time 05/26/2020 13:30:00, Rate 56, peaked t waves. Electrocardiogram: Time 05/26/2020 12:48:00, rate 56, SB with peaked t waves. Results review: All Results 05/26/2020 14:40 EST CR Chest 2 Vws REPORT 05/26/2020 13:39 EST Consent Forms Consent Forms 05/26/2020 13:32 EST ED Nursing Record 05/26/2020 13:25 EST Event Note-Text 05/26/2020 13:24 EST Event Note-Text 05/26/2020 12:33 EST Kae-Nejuwmfbu-Mpdp 05/26/2020 11:53 EST Consent Forms Consent Forms Preferred Language Form Preferred Language Form 05/26/2020 15:05 EST calcium chloride 1 Gram Gram glucose 25 Gram Gram insulin regular 10 Units Units ondansetron 8 mg mg sodium bicarbonate 50 mEq mEq sodium chloride 10 mL mL Sodium Chloride 0.9% 1,000 mL mL 05/26/2020 14:33 EST D-BOOST Problem Med Insulin Yes 05/26/2020 14:24 EST Sodium Level 133 mmol/L LOW Potassium Level 5.7 mmol/L HI Chloride Level 106 mmol/L Carbon Dioxide Level 22 mmol/L Anion Gap 11 Glucose Level 86 mg/dL Blood Urea Nitrogen 32 mg/dL HI Creatinine Level 1.80 mg/dL HI eGFR 34 mL/min/1.73m2 LOW eGFR NonAfrican 28 mL/min/1.73m2 LOW Bun/Creatinine 17.8 Calcium Level 10.1 mg/dL Protein Total 6.2 Gram/dL LOW Albumin Level 3.3 Gram/dL LOW Globulin 2.9 Gram/dL A/G Ratio 1.1 Bilirubin Total 0.4 mg/dL Alk Phos 171 Units/Liter HI AST 22 Units/Liter ALT 41 Units/Liter 05/26/2020 14:23 EST Magnesium Level 2.2 mg/dL Amylase Level 114 Units/Liter Lipase Level 206 Units/Liter Lactic Acid Level 0.9 mmol/L Troponin I Ultra <0.015 ng/mL ProBNP 135 pg/mL HI PT 9.9 Second(s) INR 0.9 05/26/2020 14:14 EST Nurse Collect Order Detail 3.00 05/26/2020 14:08 EST Nurse Collect Order Detail 3.00 05/26/2020 14:05 EST Nurse Collect Order Detail 3.00 05/26/2020 14:05 EST Nurse Collect Order Detail 3.00 05/26/2020 14:02 EST Systolic Blood Pressure 112 mmHg Diastolic Blood Pressure 80 mmHg Mean Arterial Pressure (MAP)-BMDI 92 Heart Rate Monitored 62 bpm Respiratory Rate 16 Breaths/Min Oxygen Saturation 99 % Oxygen Therapy Mode Room air 05/26/2020 14:00 EST 05/26/2020 14:00 Over the needle Antecubital Left 18 gauge Peripheral Catheter/Needle Length: 1 ?? Inch Peripheral IV Activity: Start Peripheral IV Inserted by: Olivia Aguirre RN Peripheral IV Number of Attempts: 1 Peripheral IV Skin Preparation: Chlorhexadine Peripheral IV Site Assessment: IV site WDL Peripheral IV Infiltration Score: 0 Peripheral IV Phlebitis Score: 0 IV Site/Line Care: Secured with tape IV Dressing Activity: Applied Peripheral IV Dressing: Occlusive Peripheral IV Dressing Condition: Dry, Intact 05/26/2020 13:34 EST Estimated Creatinine Clearance 24.74 mL/Min 05/26/2020 13:32 EST Systolic Blood Pressure 103 mmHg Diastolic Blood Pressure 57 mmHg LOW Temperature Source Oral Temperature Mode Fahrenheit Temperature, Fahrenheit 97.6 Deg F Clinical Temperature, C 36.4 Deg C Peripheral Pulse Rate 61 bpm Respiratory Rate 18 Breaths/Min Oxygen Saturation 97 % Oxygen Therapy Mode Room air Height Source Stated Height Entry Format Titus Height/Length, SAMMARINESE (ft) 5 ft Height/Length SAMMARINESE 3 Inch CLINICALHEIGHT 160.02 cm [place] Body Weight 52.02 kg Weight Source, ED Critical estimated dosing weight Weight Entry Format Titus Weight [place] lb 162 lb CLINICALWEIGHT 73.64 kg Body Surface Area (BSA) 1.77 m2 Body Mass Index 28.8 kg/m2 HI Pain Assessment Initial assessment Pain Scale Used 0-10 Scale Pain Intensity 2 Date of COVID-19 test known? Yes Tuberculosis Symptoms None Infectious Disease History Chicken pox/Shingles, Measles, MRSA, Mumps COVID19 Screening No Has the pt ever been tested for COVID-19 Yes, Patient stated results pending Date of COVID-19 Test 05/26/2020 Does patient have symptoms of COVID-19? No Experiencing Infectious Disease Symptoms No symptoms Physical contact outside US last 30 days No Chief Complaint pt had abn labs today when she was having her screening for SX on saturday, K is over 7, Transported to ED by Private vehicle To Room Via Wheelchair Tracking Acuity 2 - Emergent Precision Instrument Maker And Repairer Needed No Accompanied by Spouse Mode of Arrival Ambulatory Tetanus Immunization Unknown 05/26/2020 13:28 EST Nurse Collect Order Detail 3.00 05/26/2020 13:28 EST Nurse Collect Order Detail 3.00 05/26/2020 12:55 EST Estimated Creatinine Clearance 24.74 mL/Min 05/26/2020 12:36 EST Estimated Creatinine Clearance 34.26 mL/Min 05/26/2020 12:33 EST Blood Pressure Location Arm, left upper Blood Pressure Source Non-Invasive BP Device Blood Pressure Position Sitting Systolic Blood Pressure 97 mmHg Diastolic Blood Pressure 62 mmHg Temperature Source Temporal artery scanning Temperature, Fahrenheit 98.2 Deg F Clinical Temperature, C 36.8 Deg C Pulse Method Pulse Oximetry Peripheral Pulse Rate 66 bpm Respiratory Rate 20 Breaths/Min Oxygen Saturation 100 % Oxygen Therapy Mode Room air Height Source Measured Height Entry Format Titus Height/Length, SAMMARINESE (ft) 0 ft Height/Length SAMMARINESE 63 Inch CLINICALHEIGHT 160.02 cm [place] Body Weight 52 kg Weight Source Standing scale Weight Entry Format Titus Weight [place] lb 162 lb CLINICALWEIGHT 73.64 kg Body Surface Area (BSA) 1.77 m2 Body Mass Index 28.8 kg/m2 HI Pain Assessment Initial assessment Pain Scale Goal 3 Jossue Sensory Perception Slightly limited Jossue Moisture Rarely moist Jossue Activity Walks occasionally Jossue Mobility Slightly limited Jossue Nutrition Excellent Jossue Friction and Shear No apparent problem Jossue Score 20 CSSRS Past Month Wish to be No CSSRS Past Month Suicidal Thoughts No CSSRS Lifetime Suicide Behavior No Suicide Severity Rating Score 0 Suicide Severity Rating No Additional Care Required at this time Is this an Emergent or Add on Procedure? No Date of COVID-19 test known? Yes Communication Barrier None Tuberculosis Symptoms None Infectious Disease History Chicken pox/Shingles, Measles, MRSA, Mumps COVID19 Screening No Has the pt ever been tested for COVID-19 Yes, Patient stated results pending Does patient have symptoms of COVID-19? No Experiencing Infectious Disease Symptoms No symptoms Physical contact outside US last 30 days No Precision Instrument Maker And Repairer Needed No Hx of Obstructive Sleep Apnea Diagnosis Yes BiPAP/CPAP Ordered for Home Use No Age over 50 Years Old Yes Gender Male No Mode of Arrival Wheelchair Legal Guardian No Preferred Name alvarez Support Person/Pt Rep Contact Info [phone] Support Person/Pt Rep Name Laci Kramer Primary Language Zimbabwean Blood Transfusion Acceptable to Patient Yes Want Family/Rep/Phys Notified of Admit No Emergency Contact #1 Laci Kramer Emergency Contact #1 Emergency Contact #1 Relationship Emergency Contact #2 none Emergency Contact #2 Phone Number none Emergency Contact #2 Relationship none Arrived From Home Smoking Status Never (less than 100 in lifetime; none in last 30 days) Smokeless Tobacco Status Never Do You Have a History of the Following? Patient denies history Currently in Unsafe Situation No 05/26/2020 12:22 EST Sodium Level 126 mmol/L LOW Potassium Level 7.4 mmol/L CRIT Chloride Level 102 mmol/L Carbon Dioxide Level 20 mmol/L LOW Anion Gap 11 Glucose Level 85 mg/dL Blood Urea Nitrogen 33 mg/dL HI Creatinine Level 1.80 mg/dL HI eGFR 34 mL/min/1.73m2 LOW eGFR NonAfrican 28 mL/min/1.73m2 LOW Bun/Creatinine 17.4 Calcium Level 8.9 mg/dL Protein Total 7.7 Gram/dL Albumin Level 4.1 Gram/dL Globulin 3.6 Gram/dL A/G Ratio 1.1 Bilirubin Total 0.5 mg/dL Alk Phos 218 Units/Liter HI AST 33 Units/Liter ALT 54 Units/Liter WBC 4.8 K/uL RBC 4.58 Million/uL Hgb 13.5 g/dL Hct 41.5 % MCV 90.6 fL MCH 29.5 pg MCHC 32.5 Gram/dL Platelet Count 314 K/uL MPV 8.8 fL LOW RDW 14.3 % Neut % 52.9 % Neut # 2.53 K/uL Lymph % 22.6 % Lymph # 1.08 x10(3)/uL [place] % 15.3 % HI [place] # 0.73 K/uL Eos % 6.3 % Eos # 0.30 x10(3)/uL Baso % 2.5 % HI Baso # 0.12 x10(3)/uL Neutrophil Percent Man 54 % ANC # 3 K/uL NA Lymph Percent Man 19 % LOW ALYC # 1 K/uL NA [place] Percent Man 15 % HI Eos Percent Man 8 % HI Baso Percent Man 4 % HI RBC Morphology Abnormal Poikilocytosis 1+ Ovalocytes 1+ Platelet Ct Estimate Adequate Slide Review No IG# 0.02 x10(3)/uL IG% 0.40 % 05/26/2020 12:19 EST Potassium POC 7.5 mmol/L CRIT 05/26/2020 11:52 EST Nurse Collect Order Detail 3.00 05/26/2020 11:51 EST Nurse Collect Order Detail 3.00 05/26/2020 8:34 EST Nurse Collect Order Detail 3.00 05/26/2020 8:33 EST Nurse Collect Order Detail 3.00 05/26/2020 8:33 EST Nurse Collect Order Detail 3.00 05/26/2020 2:01 EST Orders Orders 05/26/2020 2:01 EST Nurse Collect Order Detail 3.00 05/26/2020 2:00 EST Nurse Collect Order Detail 3.00 . Radiology results: Radiology Results (Last 48 hours) [id number] -- 05/26/2020 13:28 CR Chest 2 Vws (05/26/2020 14:40) Result: [...] Dr. Jluis Maddox.Transcribed by Gopal Pate PA-C, Velia (N), Vee Hood T.I have personally viewed, interpreted and dictated the examination. Ihave read and agree with the above final transcribed report. . Reexamination/ Reevaluation Time: 05/26/2020 16:07:00 . Vital signs per nurse's notes Course: improving. Pain status: decreased. Assessment: exam improved. Impression and Plan Diagnosis Hyperkalemia - Discharge, Emergency medicine, Medical Calls-Consults - 05/26/2020 15:30:00 , DAVID JUDD MD-NEP. - 05/26/2020 15:30:00 , JIM BRAVO MD. - 05/26/2020 16:08:00 , DAVID JUDD MD-NEP. Plan Condition: Stable. Disposition: Admit Admit/Transfer/Discharge: Admit to Inpatient (Order): Start: 05/26/2020 16:08 EST, Admit reason: hyperkalemia, acute kidney injury, Estimated length of stay 2 Midnights or LONGER, Level of Care: Critical Care Adult, Admitting: JIM BRAVO MD. Counseled: Patient, Family, Regarding diagnosis, Regarding diagnostic results, Regarding treatment plan, Regarding prescription, Patient indicated understanding of instructions. Electronically signed by Renay Ribera Conversion Director Construction Services Niruner at 11/05/2022 6:03 PM CDT documented in this encounter Plan of Treatment Not on file documented as of this encounter Visit Diagnoses Not on filedocumented in this encounter
--- OUTSIDE RECORDS SUMMARY | 2025-02-23 12:35 | XMS_ITS | Encounter Summary ---
Author Organization [employer] ([place], [place], [place], [place]) Address [address] [place] [address] Care Team Providers Care Counter Tacker Name Role Phone Unavailable Primary Care Provider Unavailabl e Encounter Details Date Type Department Care Team (Late st Contact Info) Description 12/28/2019 Transcribed Document [facility] [place] Medicine [address] [place] [address] ProviderNuha MD [address] [place] [address] Social History Tobacco Use Types Packs/Day Years Used Date Smoking Tobacco: Never Assessed Comments Unknown Sex and Gender Information Value Date Recorded Sex Assigned at Not on file Legal Sex Female 2:42 PM CDT Gender Identity Not on file Sexual Orientation Not on file documented as of this encounter Miscellaneous Notes * Cerner Conversion Note - Historical ProviderMD - 12/28/2019 2:36 PM CDT Stroke/Warfarin Instructions Entered On: 12/28/2019 14:36 EDT Performed On: 12/28/2019 14:36 EDT by Ambar Rai RN Stroke/Warfarin Instructions Stroke/TIA Discharge Ins : N/A Warfarin Discharge Ins : N/A Ambar Rai RN - 12/28/2019 14:36 EDT documented in this encounter Plan of Treatment Not on file documented as of this encounter Visit Diagnoses Not on filedocumented in this encounter
--- OUTSIDE RECORDS SUMMARY | 2025-02-23 12:35 | XMS_ITS | Encounter Summary ---
Author Organization [employer] ([place], [place], [place], [place]) Address [address] [place] [address] Care Team Providers Care Computer Engineer Name Role Phone Unavailable Primary Care Provider Unavailabl e Encounter Details Date Type Department Care Team (Late st Contact Info) Description 12/26/2019 Transcribed Document [facility] Radiology [address] [place] [address] Mei Kuhn MD [address] [place] [id number] Social History Tobacco Use Types Packs/Day Years Used Date Smoking Tobacco: Never Assessed Comments Unknown Sex and Gender Information Value Date Recorded Sex Assigned at Not on file Legal Sex Female 2:42 PM CDT Gender Identity Not on file Sexual Orientation Not on file documented as of this encounter Miscellaneous Notes * Cerner Conversion Note - Mei Kuhn MD - 12/26/2019 9:30 AM EDT Patient: NATE KRAMER Age: 69 years Sex: Female : 1950 Associated Diagnoses: None Author: MEI KUHN MD-INT Subjective Date of encounter 12/26/19 Patient is feeling better Up in chair Denies abdominal pain Chow a carballo No nausea No headache Physical Examination VS/Measurements Vitals Signs (last 24 hrs) Last Charted Minimum Maximum Temp 97.6 (DEC 25 05:38) 97.6 (DEC 25 05:38) 98.3 (DEC 24 12:00) Mon HR 81 (DEC 25:38) 74 (DEC 24 08:43) 93 (DEC 24 23:00) Resp Rate 17 (DEC 25:38) 16 (DEC 25 02:06) 18 (DEC 24 08:43) SBP 114 (DEC 25 05:38) 101 (DEC 24 18:00) 117 (DEC 24 23:00) DBP L 42 (DEC 25:38) L 42 (DEC 25 05:38) 64 (DEC 24 23:00) MAP 61 (DEC 25:38) 61 (DEC 25 05:38) 75 (DEC 24 23:00) SpO2 L 93 (DEC 25:38) L 93 (DEC 25 05:38) 98 (DEC 24 08:43) General: Alert and oriented, No acute distress. Eye: Pupils are equal, round and reactive to light, Extraocular movements are intact. HENT: Normocephalic, Normal hearing, has a port on right side of chest. Neck: Supple. Respiratory: Lungs are clear to auscultation, Breath sounds are equal. Cardiovascular: Normal rate, Regular rhythm. Gastrointestinal: Soft, Non-tender, Normal bowel sounds, right ileostomy with liquid stool leaking., has HERNESTO drain with small amount of clear drainage noted. Genitourinary: No costovertebral angle tenderness. Musculoskeletal: Normal range of motion, Normal strength. Integumentary: Dry, Intact. Neurologic: Alert, Oriented. Psychiatric: Cooperative, Appropriate mood & affect. Impression and Plan Labs reviewed. colo- Vaginal fistula. -symptoms over the past year -LAR with ileostomy- on 12/22/19 Ostomy functioning and underwent teaching Tolerating her diet. Pelvic abscess abdominal abscess . Klebsiella pneumonia ESBL positive wound culture -ID following and on merrem and awaiting final ID recs for discharge abx Acute renal failure postoperative with ckd 3 Creatinine 1.4 increased to 2.3. and better again and at her baseline Multpile myeloma and ICH -oncologist in [facility] and on treatment (held prior to surgery for 2 weeks) Hyper kalemia./Hypokalemia Potassium stabilised Postoperative pain on chroni pain. opiates with opioid dependence and on fentanyl patch dvt prophylaxis- hepatrin Disposition:Voiding trial off carballo Discharge plans after final ID input for abx Has a port Discussed with patient. Lives with her spouse Time spent with above 28 minutes Monday, December 23, 2019. 35 minutes spent on the follow-up this really nice 61-year-old lady chronic pain and fortunate she does have a stool outputout ofher ileostomy she does have some acute renal failure and her creatinine jumped up from 1.4 up to 2.3. Potassium also jumped up to 5.8 ordered Kayexalate and recheck. Also IV fluids and Carballo catheter placement. December. 25 minute spent on [...] a CBC and CMP in the morning. Wednesday, December 25, 2019. 27 minutes spent on the follow-up of this unfortunate patient. Tolerating by mouth soft diet however cultures positive for Klebsiella pneumonia started Merrem and consulted infectious disease. [employer] dictation system used. Computer program makes numerous spelling grammar mistakes. If you have any questions or concerns do not hesitate call Dr. Nba Garcia at cell phone number [phone]. documented in this encounter Plan of Treatment Not on file documented as of this encounter Visit Diagnoses Not on filedocumented in this encounter
--- OUTSIDE RECORDS SUMMARY | 2025-02-23 12:35 | XMS_ITS | Encounter Summary ---
Author Organization [employer] ([place], [place], [place], [place]) Address [address] [place] [address] Care Team Providers Care Bottle Line Worker Name Role Phone Unavailable Primary Care Provider Unavailabl e Encounter Details Date Type Department Care Team (Late st Contact Info) Description 12/23/2019 Transcribed Document [facility] [place] [address] [place] [address] ProviderNuha MD [address] [place] [address] Social History Tobacco Use Types Packs/Day Years Used Date Smoking Tobacco: Never Assessed Comments Unknown Sex and Gender Information Value Date Recorded Sex Assigned at Not on file Legal Sex Female 2:42 PM CDT Gender Identity Not on file Sexual Orientation Not on file documented as of this encounter Miscellaneous Notes * Cerner Conversion Note - Historical ProviderMD - 12/23/2019 9:29 AM CDT Patient: NATE KRAMER Age: 69 years Sex: Female : 1950 Associated Diagnoses: None Author: DAVID JUDD MD-NEP Consult noted, chart reviewed, full note to follow, thank you. documented in this encounter Plan of Treatment Not on file documented as of this encounter Visit Diagnoses Not on filedocumented in this encounter
--- OUTSIDE RECORDS SUMMARY | 2025-02-23 12:35 | XMS_ITS | Encounter Summary ---
Author Organization [employer] ([place], [place], [place], [place]) Address [address] [place] [address] Care Team Providers Care Bank Secrecy Act Officer Name Role Phone Unavailable Primary Care Provider Unavailabl e Encounter Details Date Type Department Care Team (Late st Contact Info) Description 12/22/2019 Transcribed Document [facility] [place] [facility] [place] [address] ProviderNuha MD [address] [place] [address] Social History Tobacco Use Types Packs/Day Years Used Date Smoking Tobacco: Never Assessed Comments Unknown Sex and Gender Information Value Date Recorded Sex Assigned at Not on file Legal Sex Female 2:42 PM CDT Gender Identity Not on file Sexual Orientation Not on file documented as of this encounter Miscellaneous Notes * Cerner Conversion Note - Nuha ProviderMD - 12/22/2019 8:09 AM CDT [facility] Main OR PACU Summary Primary Physician: BHUPENDRA MARISCAL MD-PRO Finalized Date/Time: 12/22/19 13:03:53 Pt. Name: NATE KRAMER/Sex: 1950 Female Med Rec #: [id number] Physician: BHUPENDRA MARISCAL MD-PRO Financial #: [id number] Pt. Type: I Room/Bed: [facility]/1 Admit/Disch: 12/22/19 06:28:00 - Institution: [facility] Main OR PACU I Case Times Entry 1 In PACU I 12/22/19 10:30:00 Ready for PACU 12/22/19 11:30:00 Discharge Discharge from PACU 12/22/19 12:55:00 I Last Modified By: MARGOTH SANTANA RN 12/22/19 13:03:17 [facility] Main OR PACU I Case Times Audit 12/22/19 13:03:17 [employer] Car [employer] Carman: GIOVANY Modifier: GIOVANY <+> 1 Ready for PACU Discharge <+> 1 Discharge from PACU I Finalized By: MARGOTH SANTANA, RN Document Signatures Signed By: MARGOTH SANTANA RN 12/22/19 13:03 Electronically signed by [facility] Conversion [employer] at 11/05/2022 6:03 PM CDT documented in this encounter Plan of Treatment Not on file documented as of this encounter Visit Diagnoses Not on filedocumented in this encounter
--- OUTSIDE RECORDS SUMMARY | 2025-02-23 12:35 | XMS_ITS | Encounter Summary ---
Author Organization [employer] ([place], [place], [place], [place]) Address [address] [place] [address] Care Team Providers Care Electrical Technician Instructor Name Role Phone Unavailable Primary Care Provider Unavailabl e Encounter Details Date Type Department Care Team (Late st Contact Info) Description 12/22/2019 Transcribed Document [facility] [place] [facility] [place] [address] ProviderNuha MD [address] [place] [address] Social History Tobacco Use Types Packs/Day Years Used Date Smoking Tobacco: Never Assessed Comments Unknown Sex and Gender Information Value Date Recorded Sex Assigned at Not on file Legal Sex Female 2:42 PM CDT Gender Identity Not on file Sexual Orientation Not on file documented as of this encounter Miscellaneous Notes * Cerner Conversion Note - Nuha ProviderMD - 12/22/2019 2:28 PM CDT Education-Diabetes Topics Entered On: 12/22/2019 19:57 EDT Performed On: 12/22/2019 14:28 EDT by Kavita Burrell Lpn Teaching/Learning Assessment Barriers To Learning : None evident Individuals Taught : Patient Baseline Knowledge of Topic : Kavita Galan Lpn - 12/22/2019 19:57 EDT Education, Diabetes Diabetes Education Grid Symptom Identification & Action Plan *Q : Verbalizes understanding Acute Complications : Verbalizes understanding Blood Glucose Monitoring : Verbalizes understanding Chronic Complications : Verbalizes understanding Community Resources : Verbalizes understanding Compliance Strategies : Verbalizes understanding Coping/Care Regimen : Verbalizes understanding Cost Issues : Verbalizes understanding Disease Process : Verbalizes understanding DKA Signs and Symptoms : Verbalizes understanding Follow-up Care : Verbalizes understanding Foot Care : Verbalizes understanding Gestational Management : Verbalizes understanding Infection Control : Verbalizes understanding Insulin Administration : Verbalizes understanding Insulin Types/Onset/Duration : Verbalizes understanding Medical Alert Band : Verbalizes understanding Medication Storage : Verbalizes understanding Medication Dosage/Route : Verbalizes understanding Medication Generic/Brand : Verbalizes understanding Medication Precautions : Verbalizes understanding Medication Special Administration : Verbalizes understanding Medication, Preadministration : Verbalizes understanding Monitoring Results : Verbalizes understanding Nutritional Management/Exercise : Verbalizes understanding Oral Agents : Verbalizes understanding Physical Activity : Verbalizes understanding Post-Contrast Instructions : Verbalizes understanding Preconception Care : Verbalizes understanding Management : Verbalizes understanding Psychosocial Adjustment : Verbalizes understanding Sexual Dysfunction : Verbalizes understanding Treatment Plan/Options : Verbalizes understanding Treatment/Management Goal : Verbalizes understanding Urine Ketone Monitoring : Verbalizes understanding Weight Loss : Verbalizes understanding Diabetes, Other : Verbalizes understanding Kavita Burrell Lpn - 12/22/2019 19:57 EDT Education, IP Diabetes Diabetes Inpatient Education Grid New Diagnosis : Verbalizes understanding Diabetes : Verbalizes understanding Pre-Diabetes : Verbalizes understanding Gestational Diabetes : Verbalizes understanding Diabetes, Other : Verbalizes understanding Kavita Burrell Lpn - 12/22/2019 19:57 EDT inpatient diabetes education grid A1C : Verbalizes understanding Exercise : Verbalizes understanding Home Blood Glucose Monitoring : Verbalizes understanding Hyperglycemia S&S Tx : Verbalizes understanding Hypoglycemia S&S Tx : Verbalizes understanding Insulin Administration : Verbalizes understanding Insulin Pump : Verbalizes understanding Meal Planning : Verbalizes understanding Medical Identification : Verbalizes understanding Medication : Verbalizes understanding Monitoring Diabetes : Verbalizes understanding Mixing insulin : Verbalizes understanding Oral Agents : Verbalizes understanding Overview of Diabetes : Verbalizes understanding Sick Days : Verbalizes understanding Smoking Cessation : Verbalizes understanding Urine Ketone Monitoring : Verbalizes understanding Diabetes Education Topics, Other : Verbalizes understanding Kavita Burrell Lpn - 12/22/2019 19:57 EDT Education, Foot Care Asthma Education Grid Care : Verbalizes understanding Circulation : Verbalizes understanding Disease Process : Verbalizes understanding Footwear : Verbalizes understanding Infection Control : Verbalizes understanding Inspection : Verbalizes understanding Plan of Care : Verbalizes understanding Positioning : Verbalizes understanding Reporting : Verbalizes understanding Symptom Identification & Action Plan *Q : Verbalizes understanding Temperature : Verbalizes understanding Treatment : Verbalizes understanding Wound Care : Verbalizes understanding Ed-Foot Care, Other : Verbalizes understanding Kavita Burrell Lpn - 12/22/2019 19:57 EDT documented in this encounter Plan of Treatment Not on file documented as of this encounter Visit Diagnoses Not on filedocumented in this encounter
--- OUTSIDE RECORDS SUMMARY | 2025-02-23 12:35 | XMS_ITS | Encounter Summary ---
Author Organization [employer] ([place], [place], [place], [place]) Address [address] [place] [address] Care Team Providers Care Field Logistics Coordinator Name Role Phone Unavailable Primary Care Provider Unavailabl e Encounter Details Date Type Department Care Team (Late st Contact Info) Description 12/28/2019 Transcribed Document [facility] [place] Medicine P[facility] [place] [address] ProviderNuha MD [address] [place] [address] Social History Tobacco Use Types Packs/Day Years Used Date Smoking Tobacco: Never Assessed Comments Unknown Sex and Gender Information Value Date Recorded Sex Assigned at Not on file Legal Sex Female 2:42 PM CDT Gender Identity Not on file Sexual Orientation Not on file documented as of this encounter Miscellaneous Notes * Cerner Conversion Note - Historical ProviderMD - 12/28/2019 12:58 PM CDT Discharge Summary, PT Entered On: 12/28/2019 12:59 EDT Performed On: 12/28/2019 12:58 EDT by KAMAR ORO PTA Discharge Summary Discharge Summary Provider Notified : Physical Therapy Reason for Discharge : Discharged from hospital Discharged to, Therapy : Home, with home health KAMAR ORO PTA - 12/28/2019 12:58 EDT Discharge Summary Comment, PT : Patient was supervision for all transfers ambulates 360ft with RWx supervision Patient has not met 2 LTGs and would benefit from continued PT.PT agrees with written D/C summary MARLO SANTANA, PT - 12/28/2019 16:49 EDT Twine Reeling Machine Operator Goals Mobility/Bed Mobility LTG PT Grid Goal #1 Goal #2 Activity : Supine to sit Sit to stand Assist : Independent, complete Independent, modified Equipment : Belt, gait, Walker, front wheel Date to Meet : 01/06/2020 EDT 01/06/2020 EDT Goal Status : Not met Goal met Date Met : 12/24/2019 EDT KAMAR ORO PTA - 12/28/2019 12:58 EDT KAMAR ORO PTA - 12/28/2019 12:58 EDT Ambulation LTG Grid Goal #1 Goal #2 Device : Walker, front wheel Walker, front wheel Distance : 400 feet 400ft Assist : Supervision or set-up Independent, modified Date to Meet : 01/06/2020 EDT 01/06/2020 EDT Goal Status : Goal met Not met Date Met : 12/24/2019 EDT KAMAR ORO PTA - 12/28/2019 12:58 EDT KAMAR ORO PTA - 12/28/2019 12:58 EDT documented in this encounter Plan of Treatment Not on file documented as of this encounter Visit Diagnoses Not on filedocumented in this encounter
--- OUTSIDE RECORDS SUMMARY | 2025-02-23 12:35 | XMS_ITS | Clinical Summary ---
Author Organization [facility] Address [address] [place] [address] Care Team Providers Care Financial Legal Assistant Name Role Phone Jenn Rosales MD Primary Care Provider [phone] Allergies Active Allergy Reactions Criticality Noted Date Comments Bee Venom Unknown - Patient st ates they do not know rxn details Low 11/27/2013 Meperidine Hcl Other - please docum ent in the comment field Low 02/28/2021 Drop blood pressure Sulfa Drugs Hives Medium 02/28/2021 Medications Aspirin Buf,CaCarb-MgCarb- MgO, 81 MG tablet 12/14/19 21 Active calcium carbonate 1500 (600 Ca) MG tablet 12/14/19 21 Active Ventolin HFA 108 (90 Base) MCG/ACT inhaler INHALE 2 PUFFS BY MOUTH EVERY 4 TO 6 HOURS NEEDED FOR 90 DAYS 12/21/19 21 Active albuterol (2.5 MG/3ML) 0.083% nebulizer solution USE 1 VIAL IN NEBULIZER EVERY 4 HOURS NEEDED 09/05/19 21 Active ascorbic acid (Vitamin C) 1000 MG tablet 1 tab(s) orally once a day Active buPROPion XL (Wellbutrin XL) 300 MG 24 hr tablet TAKE 1 TABLET BY MOUTH ONCE DAILY IN THE MORNING FOR 90 DAYS 12/19/19 21 Active butalbital-acetami nophen-caffeine 50-325-40 MG tablet TAKE 1 TABLET BY MOUTH EVERY 6 HOURS NEEDED FOR 30 DAYS 01/17/20 21 Active cholecalciferol (Vitamin D-3) 50 MCG (2000 UT) tablet 1 tab(s) orally once a day Active cholestyramine (Questran) 4 GM/DOSE powder 09/29/19 21 Active Cyanocobalamin 2500 MCG sublingual tablet 12/09/19 15 Active diazePAM (Valium) 2 MG tablet TAKE 1 TABLET BY MOUTH EVERY 8 HOURS NEEDED FOR SPASMS (ONLY TAKE WHEN NOT USING OXYCODONE) 06/02/20 20 Active estradiol (Estrace) 0.1 MG/GM vaginal cream APPLY A PEA SIZED AMOUNT TO THE VAGINA NIGHTLY 01/11/20 21 Active famotidine (Pepcid) 40 MG tablet TAKE 1 TABLET BY MOUTH ONCE DAILY DIRECTED AT BEDTIME 03/10/20 21 Active fentaNYL 37.5 MCG/HR patch 72 hour APPLY 1 PATCH TOPICALLY TO SKIN EVERY 72 HOURS 02/15/20 21 Active furosemide (Lasix) 20 MG tablet 03/13/20 21 Active gabapentin (Neurontin) 300 MG capsule TAKE 2 CAPSULES BY MOUTH EVERY 8 HOURS 03/10/20 21 Active Procto-Med HC 2.5 % rectal cream APPLY TOPICALLY TO AFFECTED AREA TWICE DAILY FOR 10 DAYS 01/10/20 21 Active Revlimid 2.5 MG capsule 03/14/20 21 Active loperamide (Imodium) 2 MG capsule Take 2 mg by mouth 2 (two) times a day. 02/29/20 21 Active magnesium oxide (Mag-Ox) 400 (240 Mg) MG tablet TAKE 1 TABLET BY MOUTH TWICE DAILY FOR 30 DAYS 04/26/20 20 Active methenamine hippurate (Hiprex) 1 g tablet 03/13/20 21 Active montelukast (Singulair) 10 MG tablet Take 10 mg by mouth 1 (one) time each day. 01/31/20 21 Active nystatin (Mycostatin) cream APPLY CREAM TOPICALLY TWICE DAILY FOR 14 DAYS 09/07/19 21 Active ondansetron ODT (Zofran-ODT) 8 MG disintegrating tablet 03/13/20 21 Active oxyCODONE (Roxicodone) 10 MG immediate release tablet TAKE 1 TABLET BY MOUTH EVERY 6 TO 8 HOURS NEEDED 02/28/20 21 Active pantoprazole (ProtoNix) 40 MG EC tablet 03/12/20 21 Active pravastatin (Pravachol) 40 MG tablet 1 tab(s) orally once a day Active promethazine (Phenergan) 12.5 MG tablet Take 12.5 mg by mouth every 12 (twelve) hours if needed. 09/29/19 21 Active Xifaxan 550 MG tablet Take 550 mg by mouth 3 (three) times a day. 12/19/19 21 Active rOPINIRole (Requip) 0.25 MG tablet Take 0.25 mg by mouth 2 (two) times a day. 12/19/19 21 Active benzonatate (Tessalon) 200 MG capsule 06/17/20 22 Active Breztri Aerosphere 160-9-4.8 MCG/ACT aerosol INHALE 2 PUFFS BY MOUTH TWICE DAILY, MAY INCREASE TO 4 PUFFS TWICE DAILY AT FIRST SIGN OF EXACERBATION FOR A FEW DAYS THEN RESUME NORMAL DOSING 11/08/19 23 Active ciclesonide (Alvesco) 160 MCG/ACT inhaler every 12 (twelve) hours. Active dronabinol (Marinol) 2.5 MG capsule Take 2.5 mg by mouth. 11/06/19 23 Active ferrous sulfate 325 (65 Fe) MG tablet 1 (one) time each day. Active tezepelumab-ekko (Tezspire) solution prefilled syringe injesction Tezspire 210 mg/1.91 mL (110 mg/mL) subcutaneous syringe Active ursodiol (Actigall) 250 MG tablet ursodiol 250 mg tablet Active cetirizine (ZyrTEC) 10 MG tablet Take 10 mg by mouth 1 (one) time each day. Active acetylcysteine (Mucomyst) 20 % nebulizer solution Take 4 mL by nebulization 1 (one) time. Active Airsupra 90-80 MCG/ACT aerosol Inhale 2 puffs every 4 to 6 hours as needed. 08/14/19 25 Active Qulipta 60 MG tablet Take 60 mg by mouth daily. 12/23/19 24 Active Azelastine HCl 137 MCG/SPRAY solution Administer 2 sprays into affected nostril(s) nightly. 07/06/20 24 Active chlorhexidine (Peridex) 0.12 % solution Use 15 mL in the mouth or throat 2 (two) times a day as needed. 07/07/20 Active Restasis 0.05 % ophthalmic emulsion Administer 1 drop into both eyes every 12 (twelve) hours. 09/17/19 Active fluticasone (Flonase) 50 MCG/ACT nasal spray Administer 2 sprays into each nostril daily. 08/14/19 Active ipratropium-albute rol (Duo-Neb) 0.5-2.5 mg/3 mL nebulizer solution Take 3 mL by nebulization 1 (one) time as needed. 08/17/19 Active lidocaine (Lidoderm) 5 % patch Apply 1 patch topically daily. 09/13/19 Active meclizine (Antivert) 12.5 MG tablet Take 2 tablets (25 mg) by mouth 3 (three) times a day as needed. 01/24/20 Active naloxone (Narcan) 4 mg/0.1 mL nasal spray CALL 911. DO NOT PRIME. ADMINISTER A SINGLE SPRAY IN NOSTRIL. IF NO TO MINIMAL RESPONSE AFTER 2-5 MINUTES, AN ADDITIONAL DOSE MAY BE GIVEN IN THE ALTERNATE NOSTRIL, THEN NEEDED (IF DOSES ARE AVAILABLE) EVERY 2-5 MINUTES 09/14/19 Active ondansetron (Zofran) 8 MG tablet Take 1 tablet (8 mg) by mouth in the morning and 1 tablet (8 mg) before bedtime. 09/13/19 Active potassium chloride CR (K-Tab) 20 MEQ ER tablet Take 1 tablet (20 mEq) by mouth daily. as directed 09/14/19 Active scopolamine (Transderm-Scop) 1 MG/3DAYS patch [address] 1 patch on the skin every 3rd (third) day. Active sucralfate (Carafate) 1 g tablet Take 1 tablet (1 g) by mouth in the morning and 1 tablet (1 g) at noon and 1 tablet (1 g) in the evening and 1 tablet (1 g) before bedtime. 08/03/19 Active Ubrelvy 100 MG tablet Take 1 tablet (100 mg) by mouth 1 (one) time as needed. 09/26/19 25 Active Gemtesa 75 MG tablet Take 1 tablet by mouth daily. as directed 05/31/20 Active Voquezna 10 MG tablet Take 1 tablet (10 mg) by mouth daily. 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 Overview (03/17/2021): Added automatically from request for surgery [id number] Encounters Date Type Department Care Team Description 01/27/2025 Telephone [facility] [address], [address] [place] [address] Elida Farias, RN follow up on symptoms from Last 3 Months Immunizations Immunization Administration Dates Next Due Influenza, seasonal, injectable 05/22/2014 Pneumococcal Polysaccharide PPV23 07/22/2010 Family History Medical History Relation Name Comments Conversions - Other Mother Blood cl ot in vein Hypertension Mother Stroke Mother Breast cancer Sister Relation Name Status Comments Mother Sister Social History Tobacco Use Types Packs/Day [...] on file Sexual Orientation Not on file Last Filed Vital Signs Vital Sign Reading Time Taken Comments Blood Pressure 117/76 11/02/2024 11:34 AM EDT Pulse 81 11/02/2024 11:34 AM EDT Temperature 36.5 C (97.7 F) 11/02/2024 11:34 AM EDT Respiratory Rate 16 11/22/2022 12:5 7 PM EDT Oxygen Saturation 96% 11/22/2022 12: 57 PM EDT Inhaled Oxygen Concentration - - Weight 79.1 kg (174 lb 6.1 oz) 11/03/19 11:34 AM EDT Height 154.9 cm (5' 1 ) 11/02/2024 11:3 4 AM EDT pt reported Body Mass Index 32.95 11/02/2024 11:34 AM EDT Plan of Treatment Health Maintenance Due Date Last Done Comments [facility]-Bone Density Scan 1950 [facility]-Hepatitis C Screening 1950 [facility]-Medicare Annual Wellness (AWV) 1950 [facility]-Infant/Child/Adol SDOH Screenings 1950 [facility]- SDOH Screenings 1969 [facility]-Adult SDOH Screenings 1969 [facility]-Zoster Vaccines (1 of 2) 1970 CT Colonography 1996 Colonoscopy 1996 FIT-DNA 1996 FIT 1996 FOBT 1996 Sigmoidoscopy 1996 [facility]-Colorectal Cancer Screening 1996 [facility]-Breast Cancer Screening 12/01/202011/19, 12/01/2018, 11/15/2017, Additional history exists [id number] Vaccine ( season) 2024 03/04/2023, 10/19/2020, 09/21/2020 [facility]-Influenza Vaccine (#1) 03/22/202505/19, 04/02/2023, 08/13/2022, Additional history exists [facility]-Depression Screening 11/02/2025 025, 10/01/2024, 03/17/2021 [facility]-DTaP,Tdap,and Td Vaccines (2 - Td or Tdap) 08/13/2034 08/13/2024, 09/21/1996 [facility]-Hepatitis A Vaccines Aged Out 12/09/2018, 05/22 No longer eligible based on patient's age to complete this topic [facility]-Pneumococcal Vaccine: 50+ Years Completed 04/02/2023, 07/22/2010, 07/22/2010 [facility]-RSV Vaccine: 60+ Years or Completed 04/02/2023 [facility]-Obesity Intervention Completed 025, 10/01/2024, 11/22/2022 HPV Vaccines Aged Out No longer eligi ble based on patient's age to complete this topic [facility]-HIB Vaccines Aged Out No longer e ligible based on patient's age to complete this topic [facility]-IPV Vaccines Aged Out No longer e ligible based on patient's age to complete this topic [facility]-Rotavirus Vaccines Aged Out No lo nger eligible based on patient's age to complete this topic Insurance MEDICARE [facility] Care Teams Financial Legal Assistant Relationship Specialty Start Date End Date Jenn Rosales MD [address] [place] [address] PCP - General 12/02/20
--- OUTSIDE RECORDS SUMMARY | 2025-02-23 12:35 | XMS_ITS | Encounter Summary ---
Author Organization [employer] ([place], [place], [place], [place]) Address [address] [place] [address] Care Team Providers Care Body And Fender Worker Name Role Phone Unavailable Primary Care Provider Unavailabl e Encounter Details Date Type Department Care Team (Late st Contact Info) Description 12/22/2019 Transcribed Document [facility] Family Medicine [facility] [place] [address] ProviderNuha MD [address] [place] [address] Social History Tobacco Use Types Packs/Day Years Used Date Smoking Tobacco: Never Assessed Comments Unknown Sex and Gender Information Value Date Recorded Sex Assigned at Not on file Legal Sex Female 2:42 PM CDT Gender Identity Not on file Sexual Orientation Not on file documented as of this encounter Miscellaneous Notes * Cerner Conversion Note - Historical ProviderMD - 12/22/2019 2:28 PM CDT Evaluation, Physical Therapy Entered On: 12/23/2019 12:04 EDT Performed On: 12/23/2019 11:45 EDT by JENNIFER DIAZ PT General Information, PT Visit Type, PT : Initial evaluation Patient Orders : Order Date Order Ordering MD 12/22/2019 14:28 PT Evaluation and Treatment Ordered By: ANNELISE DELCID MD-INT Active Diagnoses : No Qualifying Diagnoses Therapy Diagnosis, PT : impaired mobility s/p LAR with loop ileostomy Onset of Problem, PT : 12/22/2019 EDT Admission Date : 12/22/2019 06:28 Personal Devices : Personal Devices No Devices Recorded Assistive Devices : Assistive Devices No Devices Recorded General Information Comment, PT : pt is 69 year old 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 on 12-21 pt had LAR with loop ileostomy drainage of pelvic abscess. Hx of multiple myeloma, chronic opiates, BBB, GERD RLS. seen bedside room 385 02 at 2 liters, IV and cath in place. JENNIFER DIAZ, PT - 12/23/2019 11:45 EDT General Status Patient Received Status : Up in chair Treatment Start Time : 12/23/2019 10:20 EDT Patient Left Status : Up in chair, RN/PCT informed, All needs met and within reach RN/PCT Informed Comment : pt ok for PTx per Ambar KENNEY Treatment End Time : 12/23/2019 11:10 EDT Treatment Time : 50 Minute(s) JENNIFER DIAZ, PT - 12/23/2019 11:45 EDT History and Environment Living Situation, Therapy : Home Patient Lives With : Spouse Persons Assisting Patient at Home : Alone Professional Skilled Services : None Persons Providing Information : Patient Home Equipment Therapy, PT : Other: RWx, rollator, shower chair, wc, grab bars and elevated commode seat JENNIFER DIAZ, PT - 12/23/2019 11:45 EDT Prior Level of Function PT GRID Prior LOF Ambulation, Household : Independent (Comment: Charanjit [JENNIFER DIAZ, PT - 12/23/2019 11:45 EDT] ) Prior LOF Ambulation, Community : Independent (Comment: Charanjit [JENNIFER DIAZ, PT - 12/23/2019 11:45 EDT] ) Prior LOF Bed Mobility : Independent Prior LOF Toileting : Independent Prior LOF Transfer : Independent JENNIFER DIAZ, PT - 12/23/2019 11:45 EDT Prior LOF Assist with ADL Comment : assist with getting in and out of shower. Independent with dressing and bathing JENNIFER DIAZ, PT - 12/23/2019 11:45 EDT Upper Extremity Upper Extremity Dominance : Right Right UE Active ROM : WFL Right UE Strength : WFL Left UE Active ROM : WFL Left UE Strength : WFL JENNIFER DIAZ, PT - 12/23/2019 11:45 EDT Lower Extremity RLE Active ROM : WFL Right LE Strength : WFL LLE Active ROM : WFL Left LE Strength : WFL JENNIFER DIAZ, PT - 12/23/2019 11:45 EDT Functional Mobility Mobility Grid Sit to Stand : Rehab Minimal assistance Stand to Sit : Rehab Minimal assistance JENNIFER DIAZ, PT - 12/23/2019 11:45 EDT Sit to Stand Device : Belt, gait, Walker, front wheel Stand to Sit Device : Belt, gait, Walker, front wheel Functional MobilityComment : as pt stood she was incontinent of urine. Catheter in place. RN notified . pt walked to the BR with RWx and min assist to clean up and change gown and socks. RN present and realized the cath was not fully in place . removed cath and depends donned JENNIFER DIAZ, PT - 12/23/2019 11:45 EDT Gait Training/Assessment, PT Walking Distance : 280 feet with RWx and min assist. slight forward posture. cues to stand upright JENNIFER DIAZ, PT - 12/23/2019 11:45 EDT Neurological/Sensory Overall Sensory Response : Intact JENNIFER DIAZ, PT - 12/23/2019 11:45 EDT Cognition Assessment, PT Orientation : Oriented x 4 Follows Basic Command Assessment : intact JENNIFER DIAZ, PT - 12/23/2019 11:45 EDT Edu Topics Physical Therapy Education Grid Bed Mobility Training : Needs further teaching Gait Training : Needs further teaching, Returns demonstration Therapeutic Exercises : Needs further teaching Transfer Training : Needs further teaching, Returns demonstration JENNIFER DIAZ, PT - 12/23/2019 11:45 EDT Indication Assesessment, PT Physical Therapy Indicated : Yes PT Problem List : Impaired, activities daily living, Impaired, bed mobility, Impaired, endurance tolerance, Impaired, gait, Impaired, transfers JENNIFER DIAZ, PT - 12/23/2019 11:45 EDT Plan of Care, PT PT Tx Plan/Goals Established w Patient : Yes PT Frequency Rehab : Daily PT Duration Rehab : Fourteen days PT Treatments Planned : Bed mobility training, Gait training, Therapeutic exercises, Transfer training JENNIFER DIAZ, PT - 12/23/2019 11:45 EDT Usp Goals Mobility/Bed Mobility LTG PT Grid Goal #1 Goal #2 Activity : Supine to sit Sit to stand Assist : Independent, complete Independent, modified Equipment : Belt, gait, Walker, front wheel Date to Meet : 01/06/2020 EDT 01/06/2020 EDT Goal Status : Intial Goal Intial Goal JENNIFER DIAZ, PT - 12/23/2019 11:45 EDT JENNIFER DIAZ, PT - 12/23/2019 11:45 EDT Ambulation LTG Grid Goal #1 Device : Walker, front wheel Distance : 400 feet Assist : Supervision or set-up Date to Meet : 01/06/2020 EDT Goal Status : Intial Goal JENNIFER DIAZ, PT - 12/23/2019 11:45 EDT Treatment Note Subjective Comment : states name and Patient's Response to Treatment : agreed to therapy Assessment : impaired mobility s/p LAR with loop ileostomy. pt is pleasant and willing to participate in therapy. pt needs PTx to increase general mobiltiy Plan for Treatment : cont POC JENNIFER DIAZ, PT - 12/23/2019 11:45 EDT Pain Assessment Pain Scaled Used : 0-10 Pain scale Pain Score Pre-Intervention : 5 Location : Back JENNIFER DIAZ, PT - 12/23/2019 11:45 EDT Image 1 - Images currently included in the form version of this document have not been included in the text rendition version of the form. Anticipated Discharge Needs, OT/PT Anticipated Discharge to : Home, with family care Recommend Continued Therapy at Discharge : No JENNIFER DIAZ, PT - 12/23/2019 11:45 EDT Urie PT Charges PT Ther Activities Ea 15 Min : 1 PT Eval Moderate Complexity : 1 JENNIFER DIAZ, PT - 12/23/2019 11:45 EDT Electronically signed by Bac[facility] Conversion Spinning Lathe Operator Cerner at 11/05/2022 6:05 PM CDT documented in this encounter Plan of Treatment Not on file documented as of this encounter Visit Diagnoses Not on filedocumented in this encounter
--- OUTSIDE RECORDS SUMMARY | 2025-02-23 12:35 | XMS_ITS | Encounter Summary ---
Author Organization [employer] ([place], [place], [place], [place]) Address [address] [place] [address] Care Team Providers Care Headlight Assembler Name Role Phone Unavailable Primary Care Provider Unavailabl e Encounter Details Date Type Department Care Team (Late st Contact Info) Description 12/28/2019 Transcribed Document [facility] Family Medicine [facility] [place] [address] ProviderNuha MD [address] [place] [address] Social History Tobacco Use Types Packs/Day Years Used Date Smoking Tobacco: Never Assessed Comments Unknown Sex and Gender Information Value Date Recorded Sex Assigned at Not on file Legal Sex Female 2:42 PM CDT Gender Identity Not on file Sexual Orientation Not on file documented as of this encounter Miscellaneous Notes * Cerner Conversion Note - Nuha ProviderMD - 12/28/2019 9:35 AM CDT Patient: NATE KRAMER Age: 69 years Sex: Female : 1950 Associated Diagnoses: None Author: NICOLE PRECIADO MD-INF History of Present Illness - 12/25/19 - Initial hospital visit for this very pleasant 69 yr old with cc abscess Has Hx of MM - with back pain and mets Has three recent fistulas - one to the vagina, two to the bladder Has had recurrent UTIs Three days ago had colectomy Read op report, with abscess noted Now with ESBL orgainism Has had renal issues as well Has port for blood draws 12/25 - co bladder spasms last night no fever or chills feels better 12/27 - I feel better no fever or chills no rash no more spasms Review of Systems Constitutional: Weakness, Fatigue, Decreased activity, No fever, No chills. Eye Ear/Nose/Mouth/Throat Respiratory Cardiovascular Gastrointestinal: Nausea. Genitourinary: Dysuria. Hematology/Lymphatics: Bleeding tendency. Endocrine: Excessive thirst. Immunologic: Immunocompromised, Recurrent infections, Malaise. Musculoskeletal: Back pain. Integumentary: No rash. Neurologic: Alert and oriented X4. Health Status Allergies: Allergic Reactions (Selected) Severity Not Documented Meperidine- Hypotension. Sulfa drugs- Hives., Allergies (2) Active Reaction meperidine Hypotension sulfa drugs Hives Current medications: (Selected) Inpatient Medications Ordered Cipro: 500 mg, Oral, Q12H Colace: 100 mg, Oral, BID Dulcolax Laxative: 5 mg, Oral, Daily, PRN: Constipation Dulera 200 mcg-5 mcg/inh inhalation aerosol: 2 Puff, Inhalation, BID DuoNeb 0.5 mg-2.5 mg/3 mL inhalation solution: 3 mL, Nebulized Inhalation, RT_Q6H, PRN: Shortness of Breath Flagyl: 500 mg, Oral, BID Flonase: 1 Fairborn, Nasal, BID Florastor: 250 mg, Oral, Daily, PRN: Loose Stool INVanz: 1 Gram, 100 mL/Hr, IV Piggyback, [id number] Lidoderm 5% topical film: 1 Patch, TransDermal, Daily Lotrisone 1%-0.05% topical cream: 1 Application, Topical, BID MiraLax: 17 Gram, Oral, Daily, PRN: Constipation Wellbutrin XL: 150 mg, Oral, Daily aspirin: 81 mg, Oral, At Bedtime cyanocobalamin: 1,000 mcg, Oral, Daily diazePAM: 5 mg, Oral, Q6H, PRN: Other (See Comment) diphenhydrAMINE: 50 mg, IV Push, On-CALL fentaNYL 25 mcg/hr transdermal film, extended release: 1 Patch, Topical, [id number] folic acid: 1 mg, Oral, Daily gabapentin: 300 mg, Oral, BID heparin: 5,000 Units, SubCutaneous, Q8H loperamide: 2 mg, Oral, BID magnesium oxide: 400 mg, Oral, BID morphine: 2 mg, IV Push, Q2H, PRN: Pain (Severe 7-10) ondansetron: 4 mg, IV Push, Q6H, PRN: Nausea/Vomiting oxyCODONE: 10 mg, Oral, Q8H, PRN: Pain (Severe 7-10) oxyCODONE: 5 mg, Oral, Q4H, PRN: Pain (Moderate 4-6) pantoprazole: 40 mg, Oral, Daily Prescriptions Prescribed Flagyl 500 mg oral tablet: 1 Tab, Oral, BID, for 12 Day(s), 24 Tab, 0 Refill(s) Lotrisone 1%-0.05% topical cream: 1 Application, Topical, BID, for 7 Day(s), 15 Gram, 0 Refill(s) ciprofloxacin 250 mg oral tablet: 2 Tab, Oral, Q12H, for 12 Day(s), 48 Tab, 0 Refill(s) loperamide 2 mg oral capsule: 1 Cap, Oral, BID, for 20 Day(s), 40 Cap, 0 Refill(s) Documented Medications Documented Flonase: 1 Fairborn, Nasal, BID, 0 Refill(s) Lidoderm: 1 Patch, TransDermal, Daily, 0 Refill(s) Mucinex 600 mg oral tablet, extended release: 1 Tab, Oral, Q12H, 0 Refill(s) Proventil HFA 90 mcg/inh inhalation aerosol: 2 Puff, Inhalation, Q4H, PRN: as needed for wheezing, 0 Refill(s) Symbicort 160 mcg-4.5 mcg/inh inhalation aerosol: 2 Puff, Inhalation, BID, 0 Refill(s) albuterol-ipratropium 2.5 mg-0.5 mg/3 mL inhalation solution: 3 mL, Nebulized Inhalation, Q8H, PRN: as needed for shortness of breath or wheezing, 0 Refill(s) aspirin: 81 mg, Oral, At Bedtime, 0 Refill(s) buPROPion 150 mg/24 hours (XL) oral tablet, extended release: 1 Tab, Oral, [id number], 0 Refill(s) cyanocobalamin: 2,500 mcg, Oral, Daily, 0 Refill(s) fentaNYL 25 mcg/hr transdermal film, extended release: 25 mcg/Hr, Topical, [id number], 0 Refill(s) gabapentin: 300 mg, Oral, BID, 0 Refill(s) magnesium oxide: 400 mg, Oral, BID, 0 Refill(s) montelukast: 10 mg, Oral, At Bedtime, 0 Refill(s) omeprazole: 40 mg, Oral, Daily, 0 Refill(s) oxyCODONE 5 mg oral tablet: 1 Tab, Oral, Q4H, PRN: Pain (Moderate 4-6), 0 Refill(s) rOPINIRole: 0.25 mg, Oral, BID, 0 Refill(s), Medications (28) Active Scheduled: (19) aspirin 81 mg chew tab 81 mg 1 Tab, Oral, At Bedtime betameth/clotrimazole crm 15 g 1 Application, Topical, BID buPROPion XL 150 mg tab 150 mg 1 Tab, Oral, Daily ciprofloxacin 250 mg tab 500 mg 2 Tab, Oral, Q12H cyanocobalamin 1,000 mcg tab 1,000 mcg 1 Tab, Oral, Daily diphenhydrAMINE 50 mg/1 mL inj 50 mg 1 mL, IV Push, On-CALL docusate sodium 100 mg cap 100 mg 1 Cap, Oral, BID ertapenem sodium 1 Gram, IV Piggyback, [id number] fentaNYL 25 mcg/hr 72 hr patch 1 Patch, Topical, [id number] fluticasone 0.05% nasal spray 1 Fairborn, Nasal, BID folic acid 1 mg tab 1 mg 1 Tab, Oral, Daily gabapentin 300 mg cap 300 mg 1 Cap, Oral, BID heparin 5,000 units/1 mL inj 5,000 Units 1 mL, SubCutaneous, Q8H lidocaine 4% patch 1 Patch, TransDermal, Daily loperamide 2 mg cap 2 mg 1 Cap, Oral, BID magnesium oxide 400 mg tab 400 mg 1 Tab, Oral, BID metroNIDAZOLE 500 mg tab 500 mg 1 Tab, Oral, BID mometasone/formoterol 200/5 mcg inh 2 Puff, Inhalation, BID pantoprazole EC 40 mg tab 40 mg 1 Tab, Oral, Daily Continuous: (0) PRN: (9) albuterol-ipratropium inh 3 mL 3 [...] list: Medical Allergic rhinitis / SNOMED CT 818581516 / Confirmed Asthma / SNOMED CT 338247589 / Confirmed Back pain / SNOMED CT 6454619364 / Confirmed Back problem//multiple fractures / SNOMED CT 976609572 / Confirmed BBB (bundle branch block)//right / SNOMED CT 10536182 / Confirmed Cataract//extraction / SNOMED CT 008555629 / Confirmed Chronic diarrhea / SNOMED CT 969193146 / Confirmed Difficulty walking//walker / SNOMED CT 6011733760 / Confirmed Dental disorder//bottom teeth extraction//stitches intact / SNOMED CT 1689315993 / Confirmed Dizziness / SNOMED CT 2885811727 / Confirmed Fistula//colon//bladder//vaginia / SNOMED CT 4290875084 / Confirmed Ribs, multiple fractures / SNOMED CT 7908054 / Confirmed GERD - Gastro-esophageal reflux disease / SNOMED CT 0926471492 / Confirmed History of obstructive sleep apnea / IMO 25973989 / Confirmed Hypotension / SNOMED CT 977144044 / Confirmed Skin cancer / SNOMED CT 2733514559 / Confirmed Multiple myeloma / SNOMED CT 120550078 / Confirmed Restless legs syndrome / SNOMED CT 92978143 / Confirmed Sinusitis / SNOMED CT 93489736 / Confirmed Sleep apnea//no machine / SNOMED CT 797517759 / Confirmed Urinary tract infection//jul 2018 / SNOMED CT 108365531 / Confirmed, Active Problems (22) Allergic rhinitis Asthma Back pain Back problem//multiple fractures BBB (bundle branch block)//right Cataract//extraction Chronic diarrhea Dental disorder//bottom teeth extraction//stitches intact Difficulty walking//walker Dizziness Fistula//colon//bladder//vaginia GERD - Gastro-esophageal reflux disease History of obstructive sleep apnea Hypotension 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 Allergies meperidine (Hypotension) sulfa drugs (Hives) Social History Alcohol Alcohol Use History No. Home/Environment Lives with Spouse. Home equipment: Respiratory treatments, Walker/Cane. Substance Abuse Drug Use Hx: No. Use in Last 12 Months: No. Tobacco Never (less than 100 in lifetime) Smoking Status. Never Smokeless Tobacco Status. Family History Patient's mother at age 88 from stroke. Father age 84 from heart disease Physical Examination VS/Measurements Vitals Signs (last 24 hrs) Last Charted Minimum Maximum Temp 98.2 (DEC 27 06:00) 97.3 (DEC 27 00:00) 98.1 (DEC 26 18:30) Mon HR 70 (DEC 27 08:24) 70 (DEC 27 08:24) 95 (DEC 26 18:30) Resp Rate 18 (DEC 27 08:24) 16 (DEC 26 16:30) 18 (DEC 27 06:00) SBP 100 (DEC 27 06:00) 100 (DEC 27 03:30) 112 (DEC 26 16:30) DBP L 50 (DEC 27 06:00) L 49 (DEC 26 18:30) L 55 (DEC 26 16:30) MAP 62 (DEC 27 06:00) 62 (DEC 27 06:00) 69 (DEC 26 16:30) SpO2 95 (DEC 27 08:24) 94 (DEC 27 00:00) 99 (DEC 26 18:30) General: Alert and oriented, No acute distress. Eye: Normal conjunctiva. Neck: Supple, Non-tender. Respiratory: Lungs are clear to auscultation, Respirations are non-labored. Cardiovascular: Normal rate, Regular rhythm. Gastrointestinal: Soft, Non-tender, Non-distended. Genitourinary: Exam deferred. Musculoskeletal: Normal range of motion, Normal strength. Integumentary: Warm. Neurologic: Alert. Cognition and Speech: Oriented. Psychiatric: Cooperative, port site OK. Review / Management Results review: Labs (Last four charted values) WBC 9.2 (DEC 06) 6.9 (CAMACHO 05) 7.2 (CAMACHO 04) H 11.8 (CAMACHO 03) HB L 10.0 (CAMACHO 06) L 9.4 (CAMACHO 05) L 9.4 (CAMACHO 04) L 8.4 (CAMACHO 04) HCT L 31.5 (CAMACHO 06) L 30.2 (CAMACHO 05) L 29.9 (CAMACHO 04) L 26.4 (CAMACHO 04) Plt 279 (CAMACHO 06) 267 (CAMACHO 05) 208 (CAMACHO 04) 290 (CAMACHO 03) Na 136 (CAMACHO 08) 137 (CAMACHO 07) 138 (CAMACHO 06) 141 (CAMACHO 05) K 3.9 (CAMACHO 08) 3.9 (CAMACHO 08) 4.0 (CAMACHO 07) 3.7 (CAMACHO 07) Cl 106 (CAMACHO 08) 106 (CAMACHO 07) 107 (CAMACHO 06) 110 (CAMACHO 05) CO2 26 (CAMACHO 08) 27 (CAMACHO 07) 24 (CAMACHO 06) 24 (CAMACHO 05) BUN 8 (CAMACHO 08) 8 (CAMACHO 07) 9 (CAMACHO 06) 11 (CAMACHO 05) Cr H 1.30 (CAMACHO 08) H 1.30 (CAMACHO 07) H 1.40 (CAMACHO 06) H 1.60 (CAMACHO 05) Glu R 103 (CAMACHO 08) 94 (CAMACHO 07) 91 (CAMACHO 06) 83 (CAMACHO 05) Ca 8.8 (CAMACHO 08) 8.7 (CAMACHO 07) 8.5 (CAMACHO 06) L 8.3 (CAMACHO 05) PT 10.1 (DEC 22) INR 1.0 (DEC 22) AST 16 (DEC 25) 15 (DEC 24) 18 (DEC 23) 29 (DEC 22) ALT 18 (DEC 25) 17 (DEC 24) 18 (DEC 23) 22 (DEC 22) ALK P H 151 (DEC 25) 122 (DEC 24) 106 (DEC 23) 115 (DEC 22) T Bili 0.7 (DEC 25) 0.2 (DEC 24) 0.2 (DEC 23) 0.6 (DEC 22) PTN L 5.3 (DEC 25) L 5.3 (DEC 24) L 4.7 (DEC 23) L 5.0 (DEC 22) ALB L 2.1 (DEC 25) L 2.3 (DEC 24) L 2.0 (DEC 23) L 2.2 (DEC 22) . Impression and Plan - pelvic abscess with ESBL Klebsiella - Multiple Myeloma - IC Host - Colectomy for colovesical and colovaginal fistulas - sulfa allergy - Renal failure - ATN - improving Currently on Invanz and PO atx UM discussed with staff PO options available Home today - on PO cipro and flagyl 2 more weeks Follow-up prn - to see Dr Decker in 2 weeks so I won't schedule an appt at this time Switched to :PO cipro and Flagyl through 01/08 Invanz this am, then for DC long discussion with patient documented in this encounter Plan of Treatment Not on file documented as of this encounter Visit Diagnoses Not on filedocumented in this encounter
--- OUTSIDE RECORDS SUMMARY | 2025-02-23 12:35 | XMS_ITS | Encounter Summary ---
Author Organization [employer] ([place], [place], [place], [place]) Address [address] [place] [address] Care Team Providers Care Environmental Service Aide Name Role Phone Unavailable Primary Care Provider Unavailabl e Encounter Details Date Type Department Care Team (Late st Contact Info) Description 12/22/[address] [facility] [place] [place] Family Medicine [address] [place] [address] ProviderNuha MD [address] [place] [address] Social History Tobacco Use Types Packs/Day Years Used Date Smoking Tobacco: Never Assessed Comments Unknown Sex and Gender Information Value Date Recorded Sex Assigned at Not on file Legal Sex Female 2:42 PM CDT Gender Identity Not on file Sexual Orientation Not on file documented as of this encounter Miscellaneous Notes * Cerner Conversion Note - Nuha ProviderMD - 12/22/2019 10:52 AM CDT [facility] Inpatient Documentation Entered On: 12/24/2019 18:16 EDT Performed On: 12/24/2019 18:16 EDT by LONA AQUINO RN [facility] Admission Date : Admit Date 12/22/2019 06:[address] : Diagnosis (2) 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 Reason for [facility] Visit : Ostomy teaching Admitting Diagnosis ST : Reason for Admission COLON RESECTION LOW ANTERIOR LONA AQUINO RN - 12/24/2019 18:16 EDT Education Topics, Ostomy Ostomy Education Grid Activity/Exercise : Verbalizes understanding Alterations in Sexual Function : Verbalizes understanding Appearance of Healthy Stoma : Verbalizes understanding Assessment of Stoma/Skin : Verbalizes understanding Bathing/Showering : Verbalizes understanding Clothing : Verbalizes understanding Diet/Fluid Guidelines : Verbalizes understanding Expected Effluent/Output : Verbalizes understanding Fitting of Appliance : Verbalizes understanding Hydration r/t Ostomy : Verbalizes understanding Local WOC Nurse Contact Information : Verbalizes understanding Odor Control : Verbalizes understanding Peristomal Skin Care : Verbalizes understanding Potential Complications : Verbalizes understanding Pouch Emptying and Rinsing : Verbalizes understanding Supply List/Vendor Information : Verbalizes understanding LONA AQUINO RN - 12/24/2019 18:16 EDT documented in this encounter Plan of Treatment Not on file documented as of this encounter Visit Diagnoses Not on filedocumented in this encounter
--- OUTSIDE RECORDS SUMMARY | 2025-02-23 12:35 | XMS_ITS | Encounter Summary ---
Author Organization [employer] ([place], [place], [place], [place]) Address [address] [place] [address] Care Team Providers Care Hat Cone Inspector Name Role Phone Unavailable Primary Care Provider Unavailabl e Encounter Details Date Type Department Care Team (Late st Contact Info) Description 12/28/2019 Transcribed Document [facility] Family Medicine [facility] [place] [address] ProviderNuha MD [address] [place] [address] Social History Tobacco Use Types Packs/Day Years Used Date Smoking Tobacco: Never Assessed Comments Unknown Sex and Gender Information Value Date Recorded Sex Assigned at Not on file Legal Sex Female 2:42 PM CDT Gender Identity Not on file Sexual Orientation Not on file documented as of this encounter Miscellaneous Notes * Cerner Conversion Note - Nuha ProviderMD - 12/28/2019 12:01 PM CDT Final Discharge Planning Entered On: 12/28/2019 12:04 EDT Performed On: 12/28/2019 12:01 EDT by BECK FINLEY, Cad Drafter Final Discharge Planning Discharge Arrangements : Patient Post-Acute Information Patient Name: NATE KRAMER Gender: Female : [birth year] Age: 69 Years No Post-Acute Placement(s) Listed No Post-Acute Service(s) Listed No [place] Referral(s) Listed Patient Offered Choice/Affiliations Explained : Yes Designation of Choice Signed : Yes (Comment: Showed pt star ratings including quality and resource use information via [employer] for [facility]. Pt chose from list of providers given to her for [employer]. [BECK FINLEY, Cad Drafter - 12/28/2019 12:01 EDT] ) Important Medicare Message Reviewed With : Patient Important Medicare Message Reviewed D/T : 12/28/2019 10:15 EDT Transportation Needs : Family/Friend Follow Up Appointment Scheduled : Yes Is Patient High/Moderate Readmission Risk? : No Discharge To Care Management : Home Health Services (Related/SOC within 3 days)-06 BECK FINLEY Cad Drafter - 12/28/2019 12:01 EDT Final Narrative Note Final Narrative Note : Pt is discharging home today with [facility] following her. Notified Kati, liaison, and sent dc summary via [employer] ([phone] ph [phone] fax). Pt and her nurse, Ambar, aware of arrangements. BECK FINLEY Cad Drafter - 12/28/2019 12:01 EDT documented in this encounter Plan of Treatment Not on file documented as of this encounter Visit Diagnoses Not on filedocumented in this encounter
--- OUTSIDE RECORDS SUMMARY | 2025-02-23 12:35 | XMS_ITS | Encounter Summary ---
Author Organization [employer] ([place], [place], [place], [place]) Address [address] [place] [address] Care Team Providers Care Junior Oracle Dba Name Role Phone Unavailable Primary Care Provider Unavailabl e Encounter Details Date Type Department Care Team (Late st Contact Info) Description 12/26/2019 Transcribed Document [facility] [place] [facility] [place] [address] ProviderNuha MD [address] [place] [address] Social History Tobacco Use Types Packs/Day Years Used Date Smoking Tobacco: Never Assessed Comments Unknown Sex and Gender Information Value Date Recorded Sex Assigned at Not on file Legal Sex Female 2:42 PM CDT Gender Identity Not on file Sexual Orientation Not on file documented as of this encounter Miscellaneous Notes * Cerner Conversion Note - Nuha ProviderMD - 12/26/2019 1:36 PM CDT Patient: NATE KRAMER Age: 69 [...] night no fever or chills feels better Review of Systems Constitutional: Weakness, Fatigue, Decreased activity, No fever, No chills, No sweats. Eye: No icterus. Ear/Nose/Mouth/Throat: No decreased hearing. Respiratory: No cough. Cardiovascular: Peripheral edema. Gastrointestinal: Nausea. Genitourinary: Dysuria. Hematology/Lymphatics: Bleeding tendency. [...] Flagyl: 500 mg, Oral, BID Flonase: 1 [place], Nasal, BID Florastor: 250 mg, Oral, Daily, PRN: Loose Stool INVanz: 1 Gram, 100 mL/Hr, IV Piggyback, [id number] Lidoderm 5% topical film: 1 Patch, TransDermal, Daily MiraLax: 17 Gram, Oral, Daily, PRN: Constipation Wellbutrin XL: 150 mg, Oral, Daily aspirin: 81 mg, Oral, At Bedtime cyanocobalamin: 1,000 mcg, Oral, Daily diazePAM: 5 mg, Oral, Q6H, PRN: Other (See Comment) diphenhydrAMINE: 50 mg, IV Push, On-CALL fentaNYL 25 mcg/hr transdermal film, extended release: 1 Patch, Topical, [id number] folic acid: 1 mg, Oral, Daily gabapentin: [...] Oral, Daily Documented Medications Documented Flonase: 1 [place], Nasal, BID, 0 Refill(s) Florastor 250 mg [...] oral tablet, extended release: 1 Tab, Oral, [id number], 0 Refill(s) cyanocobalamin: 2,500 mcg, Oral, Daily, 0 Refill(s) fentaNYL 25 mcg/hr transdermal film, extended release: 25 mcg/Hr, Topical, [id number], 0 Refill(s) furosemide: 20 mg, Oral, At [...] 0.25 mg, Oral, BID, 0 Refill(s), Medications (27) Active Scheduled: (18) aspirin 81 mg chew tab 81 mg 1 Tab, Oral, At Bedtime buPROPion XL 150 mg tab 150 mg 1 Tab, Oral, Daily ciprofloxacin 500 mg tab 500 mg 1 Tab, Oral, Q12H cyanocobalamin 1,000 mcg tab 1,000 mcg 1 Tab, Oral, Daily diphenhydrAMINE 50 mg/1 mL inj 50 mg 1 mL, IV Push, On-CALL docusate sodium 100 mg cap 100 mg 1 Cap, Oral, BID ertapenem sodium 1 Gram, IV Piggyback, [id number] fentaNYL 25 mcg/hr 72 hr patch 1 Patch, Topical, [id number] fluticasone 0.05% nasal spray 1 [place], Nasal, BID folic acid 1 mg tab [...] list: Medical Allergic rhinitis / SNOMED CT 366471298 / Confirmed Asthma / SNOMED CT 891379083 / Confirmed Back pain / SNOMED CT 8947355583 / Confirmed Back problem//multiple fractures / SNOMED CT 459498045 / Confirmed BBB (bundle branch block)//right / SNOMED CT 85219904 / Confirmed Cataract//extraction / SNOMED CT 185614888 / Confirmed Chronic diarrhea / SNOMED CT 828011838 / Confirmed Difficulty walking//walker / SNOMED CT 2516780237 / Confirmed Dental disorder//bottom teeth extraction//stitches intact / SNOMED CT 2198040660 / Confirmed Dizziness / SNOMED CT 8966763298 / Confirmed Fistula//colon//bladder//vaginia / SNOMED CT 0163733857 / Confirmed Ribs, multiple fractures / SNOMED CT 7270415 / Confirmed GERD - Gastro-esophageal reflux disease / SNOMED CT 0328231898 / Confirmed History of obstructive sleep apnea / IMO 11098581 / Confirmed Hypotension / SNOMED CT 717325852 / Confirmed Skin cancer / SNOMED CT 0568544477 / Confirmed Multiple myeloma / SNOMED CT 987931683 / Confirmed Restless legs syndrome / SNOMED CT 22794248 / Confirmed Sinusitis / SNOMED CT 40288693 / Confirmed Sleep apnea//no machine / SNOMED CT 025262182 / Confirmed Urinary tract infection//jul 2018 / SNOMED CT 731213132 / Confirmed, Active Problems (22) Allergic rhinitis [...] (DEC 25 05:38) 97.6 (DEC 25 05:38) 98.4 (DEC 24 18:00) Mon HR 83 (DEC 25 08:36) 81 (DEC 25 05:38) 93 (DEC 24 23:00) Resp Rate 16 (DEC 25 08:36) 16 (DEC 25 02:06) 17 (DEC 25 05:38) SBP 114 (DEC 25 05:38) 101 (DEC 05 18:00) 117 (DEC 24 23:00) DBP L 42 (DEC 25 05:38) L 42 (DEC 25 05:38) 64 (DEC 24 23:00) MAP 61 (DEC 25 05:38) 61 (DEC 25 05:38) 75 (DEC 24 23:00) SpO2 L 93 (DEC 25 08:36) L 93 (DEC 25 05:38) 98 (DEC 24 23:00) General: Alert and oriented, No acute distress. Eye: Normal conjunctiva. Neck: Supple, Non-tender. Respiratory: Lungs are clear to auscultation, Respirations are non-labored. Cardiovascular: Normal rate, Regular rhythm. Gastrointestinal: Soft, Non-tender, Non-distended, ostomy pink. Genitourinary: Exam deferred. Musculoskeletal: Normal range of [...] 208 (CAMACHO 04) 290 (CAMACHO 03) Na 138 (CAMACHO 06) 141 (CAMACHO 05) L 133 (CAMACHO 04) L 132 (CAMACHO 03) K 4.0 (CAMACHO 06) 4.0 (CAMACHO 06) 4.0 (CAMACHO 06) 4.0 (CAMACHO 05) Cl 107 (CAMACHO 06) 110 (CAMACHO 05) 104 (CAMACHO 04) L 101 (CAMACHO 03) CO2 24 (CAMACHO 06) 24 (CAMACHO 05) 22 (CAMACHO 04) 21 (CAMACHO 03) BUN 9 (CAMACHO 06) 11 (CAMACHO 05) 15 (CAMACHO 04) 15 (CAMACHO 03) Cr H 1.40 (CAMACHO 06) H 1.60 (CAMACHO 05) H 2.00 (CAMACHO 04) H 2.30 (CAMACHO 03) Glu R 91 (CAMACHO 06) 83 (DEC 05) 87 (DEC 04) 99 (DEC 22) Ca 8.5 (DEC 25) L 8.3 (DEC 05) L 7.9 (DEC 23) 8.6 (DEC 22) PT 10.1 (DEC 22) INR 1.0 (DEC 22) AST 16 (DEC 06) 15 (DEC 05) 18 (DEC 23) 29 (DEC 22) ALT 18 (DEC 25) 17 (DEC 24) 18 (DEC 23) 22 (DEC 22) ALK P H 151 (DEC 25) 122 (DEC 05) 106 (DEC 23) 115 (DEC 22) T [...] failure - ATN - improving Currently on Merrem, dose good and the right antibiotic UM discussed with staff PO options available Home soon - on either PO or short course of IV Rx Switched to :PO cipro and Flagyl through 01/08 Kathleen while here Case discussed with Attending long discussion with patient Electronically signed by Bacilio, [facility] Conversion Ekg/Ecg Technician Cerner at 11/05/2022 6:03 PM CDT documented in this encounter Plan of Treatment Not on file documented as of this encounter Visit Diagnoses Not on filedocumented in this encounter
--- OUTSIDE RECORDS SUMMARY | 2025-02-23 12:35 | XMS_ITS | Encounter Summary ---
Author Organization [employer] ([place], [place], [place], [place]) Address [address] [place] [address] Care Team Providers Care Supervisor Abattoir Name Role Phone Unavailable Primary Care Provider Unavailabl e Encounter Details Date Type Department Care Team (Late st Contact Info) Description 12/18/[address] [facility] [place] [facility] [place] [address] ProviderNuha MD [address] [place] [address] Social History Tobacco Use Types Packs/Day Years Used Date Smoking Tobacco: Never Assessed Comments Unknown Sex and Gender Information Value Date Recorded Sex Assigned at Not on file Legal Sex Female 2:42 PM CDT Gender Identity Not on file Sexual Orientation Not on file documented as of this encounter Miscellaneous Notes * Cerner Conversion Note - Nuha ProviderMD - 12/18/2019 12:15 PM CDT WO Inpatient Documentation Entered On: 12/18/2019 16:05 EDT Performed On: 12/18/2019 12:15 EDT by LONA AQUINO RN WO Admission Date : Admit Date 12/04/2019 09:[address] : Diagnosis (2) 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 Pt able to communicate what type of procedure was going to take place and that there was a possibility for a temporary loop ileostomy. WOCN able to stoma cee in pt's visual field, free from scars, in rectus muscle and appropriate to clothing/pant line. Reviewed WOCN role and that she will be able to manage Ostomy prior to discharge from the hospital. LONA AQUINO RN - 12/18/2019 16:02 EDT Electronically signed by Renay Ribera Conversion Materials Management Supervisor Caron at 11/05/2022 6:05 PM CDT documented in this encounter Plan of Treatment Not on file documented as of this encounter Visit Diagnoses Not on filedocumented in this encounter
--- OUTSIDE RECORDS SUMMARY | 2025-02-23 12:35 | XMS_ITS | Clinical Summary ---
Author Organization [facility] Address [address] [place] [address] Phone Care Team Providers Care Control Room Helper Name Role Phone Roscoe Urrutia MD [ ] Conditions or Problems Problem Name Problem Code Onset Date Status Entry Date Provider Comment Standard Description Annotate CKD, Stage III 247628163 (SNOMED CT) 12/29 Active 12/29 Olivia Sharma Chronic kidney disease stage 3 Infection following a procedure, organ and space surgical site, subsequent encounter(s) T81.43xD (ICD-10-CM) 12/29 Active 12/29 Olivia Sharma Infection following a procedure, organ and space surgical site, subsequent encounter Abscess, pelvic K65.1 (ICD-10-CM) 12/29 Active 12/29 Olivia Sharma Peritoneal abscess ESBL Klebsiella infection (Z16.12) B96.1 (ICD-10-CM) 12/29 Active 12/29 Olivia Sharma Klebsiella pneumoniae [K. pneumoniae] as the cause of diseases classified elsewhere ESBL infection Z16.12 (ICD-10-CM) 12/29 Active 12/29 Olivia Sharma Extended spectrum beta lactamase (ESBL) resistance ARF with tubular necrosis 882951766475267 (SNOMED CT) 12/29 Active 12/29 Olivia Sharma Acute renal failure due to tubular necrosis Multiple myeloma, without mention of having achieved remission 489307784 (SNOMED CT) 12/29 Active 12/29 Olivia Sharma Multiple myeloma Medications Medication Instructions Start Date Stop Date Generic Name NDC Provider OMEPRAZOLE 40 MG CPDR Take one by mouth daily OMEPRAZOLE 09152189821 Bonnie Rubio MAGNESIUM OXIDE 400 (241.3 MG) MG ORAL TABLET Take by mouth twice a day MAGNESIUM OXIDE 67465968825 Bonnie Rubio LOPERAMIDE HCL 2 MG CAPS b.i.d. and also to take up to a maximum of 8 pills LOPERAMIDE HCL 23159995644 Bonnie Garciadox GABAPENTIN 300 MG CAPS Take by mouth twice a day GABAPENTIN 02777776162 Bonnie Hailex FLUTICASONE PROPIONATE 50 MCG/ACT SUSP twice daily FLUTICASONE PROPIONATE 00185485906 Bonnie Garciadox FENTANYL 25 MCG/HR PT72 q.72 hours FENTANYL 96083676530 Bonnie Hailex VITAMIN B-12 2500 MCG SUBL Take one by mouth daily CYANOCOBALAMIN 13910143694 Bonnie Rubio METRONIDAZOLE 500 MG TABS Take one by mouth 3 times daily, morning, afternoon and evening. METRONIDAZOLE 41070675934 Bonnie Hailex CIPRO 500 MG TABS CIPROFLOXACIN HCL 77960537045 Bonnie Rubio BUPROPION HCL ER (SR) 150 MG [id number] Take one by mouth daily BUPROPION HCL 79204192694 Bonnie Rubio CLOTRIMAZOLE 1 % CREA topical cream to the groin area b.i.d. for 1 more week CLOTRIMAZOLE 55260628421 Bonnie Rubio ADULT ASPIRIN REGIMEN 81 MG ORAL TABLET DELAYED RELEASE Take one by mouth daily ASPIRIN 62582143939 Bonnie Hailex ALBUTEROL SULFATE (2.5 MG/3ML) 0.083% NEBU q.8 hours p.r.n. ALBUTEROL SULFATE 51146689257 Bonnie Garciadox ROPINIROLE HCL 0.25 MG TABS Take by mouth twice a day ROPINIROLE HCL 71283562537 Bonnie Garciadox SINGULAIR 10 MG TABS Take one by mouth daily MONTELUKAST SODIUM 19865786405 Bonnie Hailex MUCINEX 600 MG [id number] Take by mouth twice a day GUAIFENESIN 35041640133 Bonnie Rubio SYMBICORT 160-4.5 MCG/ACT AERO two puffs b.i.d. BUDESONIDE-FORMOT RETA FUMARATE 15688891787 Bonnie Rubio ALBUTEROL SULFATE HFA 108 (90 Base) MCG/ACT AERS q.i.d. p.r.n. ALBUTEROL SULFATE 36786529414 Bonnie Rubio Medications Administered No information available. 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 Vital Signs No information available. Immunizations No information available. Advance Directives No information available.
--- OUTSIDE RECORDS SUMMARY | 2025-02-23 12:35 | XMS_ITS | Encounter Summary ---
Author Organization [email or web address] ([place], [place], [place], [place]) Address [address] [place] [address] Care Team Providers Care Cloth Shrinking Machine Operator Name Role Phone Unavailable Primary Care Provider Unavailabl e Encounter Details Date Type Department Care Team (Late st Contact Info) Description 12/22/2019 Transcribed Document [facility] [place] [facility] [place] [address] ProviderNuha MD [address] [place] [address] Social History Tobacco Use Types Packs/Day Years Used Date Smoking Tobacco: Never Assessed Comments Unknown Sex and Gender Information Value Date Recorded Sex Assigned at Not on file Legal Sex Female 2:42 PM CDT Gender Identity Not on file Sexual Orientation Not on file documented as of this encounter Miscellaneous Notes * Cerner Conversion Note - Historical ProviderMD - 12/22/2019 6:28 AM CDT Admission History, Adult Entered On: 12/22/2019 13:20 EDT Performed On: 12/22/2019 6:28 EDT by Bianca Piña RN Advance Directive Patient has Advance Directive *Q : Yes, Advance Directive not with the patient Advance Directive Type : Living will Copy Advance Directive Verified/on Chart : No Advance Directive Comment : inst to bring in iBanca Piña RN - 12/22/2019 13:18 EDT Anesthesia/Transfusion History Family History of Anesthesia Reaction : Prior transfusion without reaction Blood Transfusion Acceptable to Patient : Yes Transfusion History : Prior anesthesia without reaction Family History of Anesthesia Reaction : None Bianca Piña RN - 12/22/2019 13:18 EDT Functional Assessment Living Situation : Home Patient Lives With : Spouse Current Home Treatments : None Bianca Piña RN - 12/22/2019 13:18 EDT General Info Preferred Name : alvarez Arrived From : Home Want Family/Rep/Phys Notified of Admit : No Emergency Contact #1 : mario Emergency Contact #1 Emergency Contact #1 Relationship : spouse Emergency Contact #2 : none Emergency Contact #2 Phone Number : none Emergency Contact #2 Relationship : none Information Obtained From : Patient Primary Language : Palauan Communication Barrier : None Bianca Piña RN - 12/22/2019 13:18 EDT Fall Risk Scales ABCs Fall Injury Risk Identification : Age, Bones, Surgery ABC Fall Injury Risk : Moderate to high injury risk YOUNG Hx Falls Immediate/Within 3 Months : No Young Secondary Diagnosis : Yes YOUNG Use of Ambulatory Aid : Crutches/Cane/Walker YOUNG IV Therapy or IV Access : Yes Young Gait/Transferring : Weak [place] Mental Status : Oriented to own ability Young Fall Risk Score : 60 YOUNG Fall Scale Risk Level : 46 or > High Risk [place] Fall Interventions : Adequate lighting, Assistive devices within reach, Bed in low position, Call device within reach, Hourly comfort/safety rounds, Non-slip footwear, Personal items within reach, Reinforced to call for assistance before getting out of bed, Room free of clutter/spills, Upper side-rails up, Wheels locked, Wires/Cords secured Barriers to Learning : None evident Bianca Piña RN - 12/22/2019 13:18 EDT Health Histories Smoking Status : Never (less than 100 in lifetime; none in last 30 days) Smokeless Tobacco Status : Never Bianca Piña RN - 12/22/2019 13:18 EDT Social History (As Of: 12/22/2019 13:20:37 EDT) Tobacco: Never (less than 100 in lifetime) [...] (Last Updated: 12/18/2019 12:02:00 EDT by ANTONIO MCDONALD RN) Height and Weight, Clinical Dosing Height Source : Measured Height Entry Format : [place] Height, Feet : 5 ft(Converted to: 152 cm, 60 Inch) Height, Inches : 2.5 Inch(Converted to: 0 ft 3 Inch, 6.35 cm) Clinical Height : 158.75 cm Weight Source : Standing scale Weight Entry Format : [place] Clinical Dosing Weight : 66.82 kg Weight, Pounds : 147 lb Body Surface Area (BSA) : 1.69 m2 Body Mass Index : 26.5 kg/m2 (HI) [place] Body Weight : 51 kg Bianca Piña RN - 12/22/2019 13:18 EDT Infectious Disease History Has the patient ever been tested for COVID-19? : Yes, Patient stated results pending COVID19 Screening : No Experiencing Infectious Disease Symptoms : No symptoms Physical contact outside [place] in the last 30 days : No Infectious Disease Symptoms Score : 0 Infectious Disease History : Chicken pox/Shingles, Measles, MRSA, Mumps Tuberculosis Symptoms : None Bianca Piña RN - 12/22/2019 13:18 EDT Influenza Vaccine Asmt, Adult Previous Vaccines from Immunization Schedule : No qualifying data available. Influenza Immunization, Current Season : Yes Bianca Piña RN - 12/22/2019 13:18 EDT Pneumococcal Vaccine Previous Vaccines from Immunization Schedule : No qualifying data available. Pneumonia Immunization Received : Yes Bianca Piña RN - 12/22/2019 13:18 EDT Nutrition History Eating Poorly Due to Decreased Appetite : Yes Unplanned Weight Loss in Past 3-6 Months : No Malnutrition Screening Tool Total(mal) : 1 Malnutrition Screening Tool Risk Level : Patient not at risk Bianca Piña RN - 12/22/2019 13:18 EDT [place] Suicide Severity Rating Scale (C-SSRS) CSSRS Past Month Wish to be : No CSSRS Past Month Suicidal Thoughts : No CSSRS Lifetime Suicide Behavior : No Suicide Severity Rating Score : 0 Suicide Severity Rating : No Additional Care Required at this time Bianca Piña RN - 12/22/2019 13:18 EDT Psychosocial History Do You Have a History of the Following? : Patient denies history Currently in Unsafe Situation : No Bianca Piña RN - 12/22/2019 13:18 EDT Sleep Apnea Risk Assmt BiPAP/CPAP Ordered for Home Use : Yes Hx of Obstructive Sleep Apnea Diagnosis : Yes BiPAP/CPAP Used at Home : No Reason BiPAP/CPAP Not Used at Home : just quick using iot Age over 50 Years Old : Yes Gender Male : No Bianca Piña RN - 12/22/2019 13:18 EDT Valuables and Belongings Valuables and Belongings : Clothing, Personal items Clothing : Common streetwear Clothing Disposition : Bedside Personal Items : Cell phone, Electronic device(s) Personal Items Disposition : Bedside Bianca Piña RN - 12/22/2019 13:18 EDT documented in this encounter Plan of Treatment Not on file documented as of this encounter Visit Diagnoses Not on filedocumented in this encounter
--- OUTSIDE RECORDS SUMMARY | 2025-02-23 12:35 | XMS_ITS | Encounter Summary ---
Author Organization [employer] ([place], [place], [place], [place]) Address [address] [place] [address] Care Team Providers Care Clinical Radiologist Name Role Phone Unavailable Primary Care Provider Unavailabl e Encounter Details Date Type Department Care Team (Late st Contact Info) Description 05/26/2020 Transcribed Document [facility] [place] [address] [place] [address] ProviderNuha MD [address] [place] [address] Social History Tobacco Use Types Packs/Day Years Used Date Smoking Tobacco: Never Assessed Comments Unknown Sex and Gender Information Value Date Recorded Sex Assigned at Not on file Legal Sex Female 2:42 PM CDT Gender Identity Not on file Sexual Orientation Not on file documented as of this encounter Miscellaneous Notes * Cerner Conversion Note - Historical ProviderMD - 05/26/2020 12:33 PM LIFTER/DRIVER PAT Adult Entered On: 05/26/2020 12:36 EST Performed On: 05/26/2020 12:33 EST by Aparna Le RN Vital Measurements Temperature Source : Temporal artery scanning Temperature, Fahrenheit : 98.2 Deg F Clinical Temperature, C : 36.8 Deg C Pulse Method : Pulse Oximetry Peripheral Pulse Rate : 66 bpm Respiratory Rate : 20 Breaths/Min Blood Pressure Location : Arm, left upper Blood Pressure Source : Non-Invasive BP Device Blood Pressure Position : Sitting Systolic Blood Pressure : 97 mmHg Diastolic Blood Pressure : 62 mmHg Oxygen Saturation : 100 % Oxygen Therapy Mode : Room air Aparna Le RN - 05/26/2020 12:33 EST Pain Assessment Pain Assessment : Initial assessment Pain Scale Goal : 3 Aparna Le RN - 05/26/2020 12:33 EST Height and Weight, Clinical Dosing Height Source : Measured Height Entry Format : [place] Height, Feet : 0 ft(Converted to: 0 cm, 0 Inch) Height, Inches : 63 Inch(Converted to: 5 ft 3 Inch, 160.02 cm) Clinical Height : 160.02 cm Weight Source : Standing scale Weight Entry Format : [place] Clinical Dosing Weight : 73.64 kg Weight, Pounds : 162 lb Body Surface Area (BSA) : 1.77 m2 Body Mass Index : 28.8 kg/m2 (HI) [place] Body Weight : 52 kg Aparna Le RN - 05/26/2020 12:33 EST Health Histories Smoking Status : Never (less than 100 in lifetime; none in last 30 days) Smokeless Tobacco Status : Never Aparna Le RN - 05/26/2020 12:33 EST Social History (As Of: 05/26/2020 12:36:11 EST) Tobacco: Never (less than 100 in lifetime) Smoking Status. Never Smokeless Tobacco Status. (Last Updated: 12/18/2019 12:01:31 EDT by ANTONIO MCDONALD RN) Alcohol: Alcohol Use History No. (Last Updated: 12/18/2019 12:01:37 EDT by ANTONIO MCDONALD RN) Substance Abuse: Drug Use Hx: No. Use in Last 12 Months: No. (Last Updated: 12/18/2019 12:01:43 EDT by ANTONIO MCDONALD RN) Home/Environment: Lives with Spouse. Home equipment: Respiratory treatments, Walker/Cane. (Last Updated: 12/18/2019 12:02:00 EDT by ANTONIO MCDONALD RN) Infectious Disease History Has the patient ever been tested for COVID-19? : Yes, Patient stated results pending Where was the COVID-19 Testing completed? : [facility] Date of COVID-19 test known? : Yes Does patient have symptoms of COVID-19? : No COVID19 Screening : No Experiencing Infectious Disease Symptoms : No symptoms Physical contact outside US in the last 30 days : No Infectious Disease History : Chicken pox/Shingles, Measles, MRSA, Mumps Tuberculosis Symptoms : None Aparna Le RN - 05/26/2020 12:33 EST COVID19 PreProcedure Screening Is this an Emergent or Add on Procedure? : No Aparna Le RN - 05/26/2020 12:33 EST Anesthesia/Transfusion History Family History of Anesthesia Reaction : Prior transfusion without reaction Blood Transfusion Acceptable to Patient : Yes Transfusion History : Prior anesthesia without reaction Family History of Anesthesia Reaction : None Aparna Le RN - 05/26/2020 12:33 EST [place] Suicide Severity Rating Scale (C-SSRS) CSSRS Past Month Wish to be : No CSSRS Past Month Suicidal Thoughts : No CSSRS Lifetime Suicide Behavior : No Suicide Severity Rating Score : 0 Suicide Severity Rating : No Additional Care Required at this time Aparna Le RN - 05/26/2020 12:33 EST Psychosocial History Do You Have a History of the Following? : Patient denies history Currently in Unsafe Situation : No Aparna Le RN - 05/26/2020 12:33 EST General Info Preferred Name : alvarez Arrived From : Home Mode of Arrival on Unit : Wheelchair Legal Guardian : No Support Person/Pt Rep Name : Laci Burrell Support Person/Pt Rep Contact Information : [phone] Want Family/Rep/Phys Notified of Admit : No Emergency Contact #1 : Laci Burrell Emergency Contact #1 Emergency Contact #1 Relationship : Emergency Contact #2 : none Emergency Contact #2 Phone Number : none Emergency Contact #2 Relationship : none Primary Language : Nigerian Communication Barrier : None Pressure Vessel Inspector Needed : No Aparna Le RN - 05/26/2020 12:33 EST Jossue Scale Jossue Sensory Perception : Slightly limited Jossue Moisture : Rarely moist Jossue Activity : Walks occasionally Jossue Mobility : Slightly limited Jossue Nutrition : Excellent Jossue Friction and Shear : No apparent problem Jossue Score : 20 Aparna Le RN - 05/26/2020 12:33 EST Sleep Apnea Risk Assmt BiPAP/CPAP Ordered for Home Use : No Hx of Obstructive Sleep Apnea Diagnosis : Yes Age over 50 Years Old : Yes Gender Male : No Aparna Le RN - 05/26/2020 12:33 EST documented in this encounter Plan of Treatment Not on file documented as of this encounter Visit Diagnoses Not on filedocumented in this encounter
--- OUTSIDE RECORDS SUMMARY | 2025-02-23 12:35 | XMS_ITS | Encounter Summary ---
Author Organization [employer] ([place], [place], [place], [place]) Address [address] [place] [address] Care Team Providers Care Technical Services Specialist Name Role Phone Unavailable Primary Care Provider Unavailabl e Encounter Details Date Type Department Care Team (Late st Contact Info) Description 12/22/2019 Transcribed Document [facility] [place] [address] [place] [address] ProviderNuha MD [address] [place] [address] Social History Tobacco Use Types Packs/Day Years Used Date Smoking Tobacco: Never Assessed Comments Unknown Sex and Gender Information Value Date Recorded Sex Assigned at Not on file Legal Sex Female 2:42 PM CDT Gender Identity Not on file Sexual Orientation Not on file documented as of this encounter Miscellaneous Notes * Cerner Conversion Note - Historical ProviderMD - 12/22/2019 10:52 AM CDT Consult Phone Call Documentation Entered On: 12/22/2019 12:56 EDT Performed On: 12/22/2019 10:52 EDT by Rhoda Barnett [facility] Coord Phone Call for Consults Consult Phone Call/Page Attempt : First call Consult Reason : hospitalist for assumption of care and medical management Physician Requested for Consult : ANNELISE DELCID MD-INT Physician Covering for Consult : ANNELISE DELCID MD-INT Date and Time Call Returned : 12/22/2019 12:56 EDT Physician Returning Call : ANNELISE DELCID MD-INT Consult, Additional Information : pt came from surgery called the occupational health nurse supervisor hospitalist Rhoda Barnett Care [facility] Coord - 12/22/2019 12:55 EDT documented in this encounter Plan of Treatment Not on file documented as of this encounter Visit Diagnoses Not on filedocumented in this encounter
--- OUTSIDE RECORDS SUMMARY | 2025-02-23 12:35 | XMS_ITS | Encounter Summary ---
Author Organization [employer] ([place], [place], [place], [place]) Address [address] [place] [address] Care Team Providers Care Vascular Ultrasound Technologist Name Role Phone Unavailable Primary Care Provider Unavailabl e Encounter Details Date Type Department Care Team (Late st Contact Info) Description 06/01/2020 Transcribed Document [facility] [place] [facility] [place] [address] ProviderNuha MD [facility] [place] [address] Social History Tobacco Use Types Packs/Day Years Used Date Smoking Tobacco: Never Assessed Comments Unknown Sex and Gender Information Value Date Recorded Sex Assigned at Not on file Legal Sex Female 2:42 PM CDT Gender Identity Not on file Sexual Orientation Not on file documented as of this encounter Miscellaneous Notes * Cerner Conversion Note - Historical ProviderMD - 06/01/2020 4:17 PM QA DEVELOPER Patient: NATE KRAMER Age: 69 Years Sex: Female : 1950 Admit Date 05/30/2020 06:50 Discharge Date 06/01/2020 16:28 Primary Care Provider THAD CORTEZ MD-[facility] Discharge Diagnosis Hyponatremia 06/01/2020 E87.1 ICD-10-CM Status post reversal of ileostomy 06/01/2020 Z98.890 ICD-10-CM Procedures SN - Proc - Procedure: Ileostomy Closure (05/30/20 14:12:57) Reason for Hospitalization Ileostomy Reversal Hospital Course 69 YO Female with PMH Multiple Myeloma, CKD3, Hyperkalemia, Chronic Pain, CURT, GERD, RLS, H/O UTI's, with 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 Endoscopic evaluation of her anastomosis as well as Gastrografin enema revealed healthy and well healed anastomosis. Pt admitted for ileostomy reversal with Dr. Decker. Pt underwent ileostomy reversal on 05/30 with no complications. The day after surgery pt had reported of a headache which she felt was related to stopping her fentanyl patch prior to surgery. Pt also reported of mild nausea but had been tolerating diet. Pt's headache resolved once Fentanyl patch was restarted and nausea resolved with Phenergan. Per surgery pt ok for discharge. Prior to discharge wound packing was removed and pt directed to wash the site with warm soapy water daily and pat dry. Pt will follow up with Surgery in 2 weeks or sooner if needed. Pt noted to have a chronic hyponatremia. Sodium levels were noted to be 129, on 05/26 sodium levels were 126 and from that point sodium levels around 129-131. Pt is asymptomatic. Pt reported she doesn't use salt in her diet. Encouraged pt to start adding more salt in moderation and to have follow up BMP and discussions about her hyponatremia with her stone processing machine operator in 1 week. Potassium levels were normal throughout hospital course. History of low anterior resection with takedown of colovaginal and colovesical fistula and ileostomy creation approximately 5 months ago. -S/P Ileostomy reversal on 05/30/[address] Bhupendra Decker -encouraged ambulation -encouraged Incentive spirometer use -Pain control -tolerating diet Chronic Kidney disease stage 3 -evaluated by Nephrology Dr. Warner on 05/27/2020 -Recently had an RUSLAN and hyperkalemia that resolved -Cr 1.5-1.7 Hyponatremia -Chronic -Pt reported she does not use much salt in her diet -Discussed with pt to start adding more salt in diet with moderation and to follow up with her Truck Greaser in 1 week to discuss her hyponatremia and repeat BMP H/O Hyperkalemia -evaluated by Nephrology in December 2019 and more recently on 05/27/2020 -Current K+ 4.8-->3.6 Chronic Pain -History of back pain and multiple fractures -Restarted fentanyl patch -Oxycodone PRN and Gabapentin Multiple Myeloma -Follows with Oncologist Dr. Fernandez Jordan CURT -On Ferrous Sulfate GERD -Continue Protonix RLS -Continue Ropinorole H/O UTI's -Continue methenamine Vital Signs Oxygen Settings (Last) Oxygen Therapy Mode: Room air (06/01/20 11:00:00) Oxygen Flow Rate: 8 Liter/Min (05/30/20 14:40:00) Physical Exam General: Alert and oriented, No acute distress. Eye: PERRL, Normal conjunctiva Neck: Supple, No jugular venous distention Respiratory: CTA, no distress, sat'ing well on RA Cardiovascular: S1, S2, No murmur Gastrointestinal: Soft, Non-tender, Non-distended, Normal bowel sounds. Bandage Right Quadrant Musculoskeletal: Normal range of motion, Normal strength, No tenderness, No swelling. Integumentary: Warm. Neurologic: Alert, Oriented, Normal sensory, Normal motor function, Cranial Nerves II-XII are grossly intact. Cognition and Speech: Oriented, Speech clear and coherent. Discharge Disposition Home Discharge Follow Up Continue wound care by washing with warm soapy water daily and patting dry - Within 2 to 3 days BHUPENDRA DECKER - 07:45 AM Please encorporate salt in your diet moderately. Your sodium levels before discharge were 129. I would like you to follow up with your kidney doctor to further discuss the low sodium and for a repeat basic metabolic profile in 1 week - Within 2 to 3 days Discharge Medications (21) Active acetaminophen/butalbital/caffeine 325 mg-50 mg-40 mg oral tablet 1 Tab, PRN, Oral, Q4H aspirin 81 mg oral tablet, chewable 81 mg = 1 Tab, Oral, Daily buPROPion 150 mg/24 hours (XL) oral tablet, extended release 150 mg = 1 Tab, Oral, Daily fentaNYL 37.5 mcg/hr transdermal film, extended release 1 Patch, Topical, [id number] ferrous sulfate 325 mg (65 mg elemental [...] 40 mg = 1 Cap, Oral, Daily oxyCODONE 10 mg oral tablet 10 mg = 1 Tab, PRN, Oral, Q6H Proventil HFA 90 mcg/inh inhalation aerosol 2 Puff, PRN, Inhalation, Q4H Revlimid 2.5 mg oral capsule 2.5 mg = 1 Cap, Oral, Daily rOPINIRole 0.25 mg oral tablet 0.25 mg = 1 Tab, Oral, BID Valium 5 mg oral tablet 5 mg = 1 Tab, PRN, Oral, QID Vitamin B12 1000 mcg oral tablet 1,000 mcg = 1 Tab, Oral, Daily Zofran ODT 8 mg oral tablet, disintegrating 8 mg = 1 Tab, PRN, SubLINgual, TID Code Status No Code Status Order on Record Condition on Discharge Stable Consulting Physicians DEBBY CLAYTON MD-ANDRZEJ FITCH MD Current Diet Order No qualifying data available. Pending Labs No Labs on Record Time Spent on Discharge 20 min. documented in this encounter Plan of Treatment Not on file documented as of this encounter Visit Diagnoses Not on filedocumented in this encounter
--- OUTSIDE RECORDS SUMMARY | 2025-02-23 12:35 | XMS_ITS | Encounter Summary ---
Author Organization [employer] ([place], [place], [place], [place]) Address [address] [place] [address] Care Team Providers Care Production Administrative Assistant Name Role Phone Unavailable Primary Care Provider Unavailabl e Encounter Details Date Type Department Care Team (Late st Contact Info) Description 05/26/2020 Transcribed Document [facility] [place] [facility] [place] [address] ProviderNuha MD [address] [place] [address] Social History Tobacco Use Types Packs/Day Years Used Date Smoking Tobacco: Never Assessed Comments Unknown Sex and Gender Information Value Date Recorded Sex Assigned at Not on file Legal Sex Female 2:42 PM CDT Gender Identity Not on file Sexual Orientation Not on file documented as of this encounter Miscellaneous Notes * Cerner Conversion Note - Nuha ProviderMD - 05/26/2020 5:14 PM SUPERVISOR [employer]OPELL[employer] LOADING Patient: NATE KRAMER Age: 69 Years Sex: Female : 1950 Renal - brief note Chart reviewed. Laboratory data reviewed. Case discussed with ER staff Full consultation note to follow Ms. Kramer is a 69-year-old woman who has a past history significant for ileostomy creation and chronic kidney disease stage III w She is scheduled to have reversal of her bowel surgery/reanastomosis of her colon. She had some preoperative labs that sh Apparently, due to her GI losses she has recent history of hypokalemia and was taking potassium supplementation. She also has had some nausea, vomiting and poor oral nutrition recently, and her serum creatinine concetta to 1.8 mg/dL. Preoperative labs show that she had severe hyperkalemia with a potassium level of 7.4 mmol per liter. She received medical therapy for her hyperkalemia with IV calcium, bicarbonate, insulin, dextrose, IV fluids and Lokelma. Repeat laboratory data shows improvement in her potassium down to 5.7 mmol per liter. Repeat labs for 1800 this evening are scheduled. During discussion about her medical therapy, I advised the ER staff to give additional maintenance IV fluids with a bolus of normal saline 1 L IV. -I'm optimistic that with volume management for acute kidney injury and hyperkalemia can improve. I do not think she has an indication for emergent hemodialysis with improving potassium and only modest worsening of her kidney function. Blood Gases (Current Encounter/Past 24 Hours) No Blood Gas Results Found (Past 24 Hours) Electrolytes(BMP) Results (Current Encounter/Past 24 Hours) Sodium Level 133 mmol/L LOW 05/26/2020 16:00 Potassium Level 5.7 mmol/L DC 05/26/2020 16:00 Chloride Level 106 mmol/L 05/26/2020 16:00 Carbon Dioxide Level 22 mmol/L 05/26/2020 16:00 Anion Gap 05/26/2020 16:00 Blood Urea Nitrogen 32 mg/dL DC 05/26/2020 16:00 Glucose Level 86 mg/dL 05/26/2020 16:00 Calcium Level 10.1 mg/dL 05/26/2020 16:00 Creatinine Level 1.80 mg/dL DC 05/26/2020 16:00 Cardiac Markers (Current Encounter/Past 24 Hours) ProBNP 135 pg/mL DC 05/26/2020 15:24 CBC Results (Current Encounter/Past 24 Hours) No CBC Results Found (Past 24 Hours) CMP Results (Current Encounter/Past 24 Hours) Creatinine Level 1.80 mg/dL DC 05/26/2020 16:00 Protein Total 6.2 Gram/dL LOW 05/26/2020 16:00 A/G Ratio 1.1 05/26/2020 16:00 Globulin 2.9 Gram/dL 05/26/2020 16:00 Bun/Creatinine 17.8 05/26/2020 16:00 eGFR 36 mL/min/1.73m2 LOW 05/26/2020 16:26 eGFR NonAfrican 30 mL/min/1.73m2 LOW 05/26/2020 16:26 Sodium Level 133 mmol/L LOW 05/26/2020 16:00 Potassium Level 5.7 mmol/L DC 05/26/2020 16:00 Chloride Level 106 mmol/L 05/26/2020 16:00 Carbon Dioxide Level 22 mmol/L 05/26/2020 16:00 Anion Gap 11 05/26/2020 16:00 Alk Phos 171 Units/Liter DC 05/26/2020 16:00 ALT 41 Units/Liter 05/26/2020 16:00 AST 22 Units/Liter 05/26/2020 16:00 Blood Urea Nitrogen 32 mg/dL HI 05/26/2020 16:00 Glucose Level 86 mg/dL 05/26/2020 16:00 Albumin Level 3.3 Gram/dL LOW 05/26/2020 16:00 Bilirubin Total 0.4 mg/dL 05/26/2020 16:00 Calcium Level 10.1 mg/dL 05/26/2020 16:00 Magnesium Level 2.2 mg/dL 05/26/2020 15:24 Coagulation Results (Current Encounter/Past 24 Hours) PT 9.9 Second(s) 05/26/2020 15:12 INR 0.9 05/26/2020 15:12 Creatinine Clearance (Current Encounter/Past 24 Hours) Creatinine Level 1.80 mg/dL DC 05/26/2020 16:00 Bun/Creatinine 17.8 05/26/2020 16:00 Estimated Creatinine Clearance 24.74 mL/Min 05/26/2020 13:34 Johnny Warner MD -Nephrology Note dictated with [employer] voice recognition system Partner with Dr. Venegas, Dr. Coker and Dr. Vera documented in this encounter Plan of Treatment Not on file documented as of this encounter Visit Diagnoses Not on filedocumented in this encounter
--- OUTSIDE RECORDS SUMMARY | 2025-02-23 12:35 | XMS_ITS | Encounter Summary ---
Author Organization [employer] ([place], [place], [place], [place]) Address [address] [place] [address] Care Team Providers Care Sink Cutter Name Role Phone Unavailable Primary Care Provider Unavailabl e Encounter Details Date Type Department Care Team (Late st Contact Info) Description 12/22/2019 Transcribed Document [facility] [place] [facility] [place] [address] ProviderNuha MD [address] [place] [address] Social History Tobacco Use Types Packs/Day Years Used Date Smoking Tobacco: Never Assessed Comments Unknown Sex and Gender Information Value Date Recorded Sex Assigned at Not on file Legal Sex Female 2:42 PM CDT Gender Identity Not on file Sexual Orientation Not on file documented as of this encounter Miscellaneous Notes * Cerner Conversion Note - Historical ProviderMD - 12/22/2019 3:03 PM CDT Pain Assessment Entered On: 12/22/2019 21:39 EDT Performed On: 12/22/2019 19:44 EDT by Kavita Burrell Lpn Intervention Information: oxyCODONE Performed by Bianca Piña RN on 12/22/2019 18:44:00 EDT oxyCODONE,10mg Oral,Pain (Moderate 4-6) Pain Assessment Pain Assessment : Follow-up assessment Pain Scale Used : 0-10 Scale Kavita Burrell Lpn - 12/22/2019 21:39 EDT Pain Scale Intensity : 3 Kavita Burrell Lpn - 12/22/2019 21:39 EDT Image 4 - Images currently included in the form version of this document have not been included in the text rendition version of the form. documented in this encounter Plan of Treatment Not on file documented as of this encounter Visit Diagnoses Not on filedocumented in this encounter
--- OUTSIDE RECORDS SUMMARY | 2025-02-23 12:35 | XMS_ITS | Encounter Summary ---
Author Organization [email or web address] ([place], [place], [place], [place]) Address [address] [place] [address] Care Team Providers Care Reception Clerk Name Role Phone Unavailable Primary Care Provider Unavailabl e Encounter Details Date Type Department Care Team (Late st Contact Info) Description 12/28/2019 Transcribed Document [facility] [place] [address] [place] [address] ProviderNuha MD [address] [place] [address] Social History Tobacco Use Types Packs/Day Years Used Date Smoking Tobacco: Never Assessed Comments Unknown Sex and Gender Information Value Date Recorded Sex Assigned at Not on file Legal Sex Female 2:42 PM CDT Gender Identity Not on file Sexual Orientation Not on file documented as of this encounter Miscellaneous Notes * Cerner Conversion Note - Nuha ProviderMD - 12/28/2019 2:37 PM CDT [facility] 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 Decker, 2 weeks Activity: Discharge Activity: Activity as tolerated Diet: Please monitor fluid intake to prevent dehydration, Discharge Diet: Other (see Special Instructions) Follow-Up Appointments Follow Up with BHUPENDRA DECKER MD-PRO When 01/06/2020 08:30 AM EDT Where: [address] [place] [address]- Follow Up with NICOLE PRECIADO MD-INF When 01/04/2020 10:45 AM EDT Where: [address] [facility] [address] [place] [address]- Medications What How Much When Instructions Next Dose betamethasone-clotrimazole topical (Lotrisone 1%-0.05% topical cream) 1 Application(s) Topical Two Times A Day Duration: 7 Day(s) Pickup at [facility] #[id number] tonight ciprofloxacin (ciprofloxacin 250 mg oral tablet) 2 Tablet(s) Oral Every 12 hours Duration: 12 Day(s) Pickup at [facility] #[id number] tonight loperamide (loperamide 2 mg oral capsule) 1 Capsule(s) Oral Two Times A Day Duration: 20 Day(s) Pickup at [facility] #[id number] tonight metroNIDAZOLE (Flagyl 500 mg oral tablet) 1 Tablet(s) Oral Two Times A Day Duration: 12 Day(s) Do not drink alcohol or use alcohol containing products (ex. cough syrups and mouth washes) while on this medication. Pickup at [facility] #[id number] tonight oxyCODONE (oxyCODONE 5 mg oral tablet) 1 Tablet(s) Oral Every 4 Hours as needed for Pain (Moderate 4-6) Please note: change in directions. Use home supply as needed albuterol (Proventil HFA 90 mcg/ inh inhalation aerosol) 2 Puff(s) Inhalation Every 4 Hours as needed for as needed for wheezing as needed albuterol-ipratropium (albuterol-ipratropium 2.5 mg-0.5 mg/ 3 mL inhalation solution) 3 Milliliter(s) Nebulized Inhalation Every 8 Hours as needed for as needed for shortness of breath or wheezing as needed aspirin 81 Milligram(s) Oral At Bedtime tonight budesonide-formoterol (Symbicort 160 mcg-4.5 mcg/ inh inhalation aerosol) 2 Puff(s) Inhalation Two Times A Day tonight buPROPion (buPROPion 150 mg/ 24 hours (XL) oral tablet, extended release) 1 Tablet(s) Oral Interval Every 24 Hours tomorrow cyanocobalamin 2,500 Microgram(s) Oral Every Day tomorrow fentaNYL (fentaNYL 25 mcg/ hr transdermal film, extended release) 25 Micrograms/Hour Topical Interval Every 72 Hours tomorrow fluticasone nasal (Flonase) 1 [place](s) Nasal Two Times A Day tonight gabapentin 300 Milligram(s) Oral Two Times A Day tonight guaiFENesin (Mucinex 600 mg oral tablet, extended release) 1 Tablet(s) Oral Every 12 hours tonight lidocaine topical (Lidoderm) 1 Patch(es) TransDermal Every Day tomorrow magnesium oxide 400 Milligram(s) Oral Two Times A Day tonight montelukast 10 Milligram(s) Oral At Bedtime tonight omeprazole 40 Milligram(s) Oral Every Day tomorrow rOPINIRole 0.25 Milligram(s) Oral Two Times A Day tonight Pharmacy Information [facility] #[id number]: [address] [phone] Take your medications faithfully. Do NOT skip [...] This Visit No Immunizations Found Education Materials Ileostomy, Care After This sheet gives you information about how to care for yourself after your procedure. Your health care provider may also give you more specific instructions. If you have problems or questions, contact your health care provider. What can I expect after the procedure? After the procedure, it is common to have: ??? A small amount of blood or clear fluid leaking from your stoma. ??? Pain and discomfort in your abdomen, especially around your stoma. ??? Irregular bowel movements for several days. ??? Loose stool. Follow these instructions at home: Medicines ??? Take xhgn-tmo-tefwhbu and prescription medicines only as told by your health care provider. ??? If you were prescribed an antibiotic medicine, take it as told by your health care provider. Do not stop taking the antibiotic even if you start to feel better. Stoma and incision care ??? Keep the skin that surrounds your stoma clean and dry. ??? Follow instructions from your health care provider about how to take care of your incision. Make sure you: ? Wash your hands with soap and water before and after you change your bandage (dressing). If soap and water are not available, use hand family practice physician assistant. ? Change your dressing as told by your health care provider. ? Leave stitches (sutures), skin glue, or adhesive strips in place. These skin closures may need to stay in place for 2 weeks or longer. If adhesive strip edges start to loosen and curl up, you may trim the loose edges. Do not remove adhesive strips completely unless your health care provider tells you to do that. ??? Check your stoma area every day for signs of infection. Check for: ? More redness, swelling, or pain. ? More fluid or blood. ? Warmth. ? Pus or a bad smell. ??? Follow your health care provider's instructions about changing and cleaning your ostomy pouch. ??? Keep supplies with you at all times to care for your stoma and ostomy pouch. Also keep extra clothing with you. Eating and drinking ??? Follow instructions from your health care provider about eating or drinking restrictions. ??? Pay attention to which foods and drinks cause problems with digestion, such as gas, constipation, or diarrhea. ??? Avoid spicy foods and caffeine while your stoma heals. ??? Eat meals and snacks at regular intervals. ??? Drink enough fluid to keep your urine pale yellow. Activity ??? Return to your normal activities as told by your health care provider. Ask your health care provider what activities are safe for you. ??? Rest as much as possible while your stoma heals. ??? Avoid intense physical activity for as long as you are told by your health care provider. ??? Do not lift anything that is heavier than 10 lb (4.5 kg), or the limit that you are told, for 6 weeks or until your health care provider says that it is safe. General instructions ??? Do not drive or use heavy machinery while taking prescription pain medicine. ??? Wear compression stockings as told by your health care provider. These stockings help to prevent blood clots and reduce swelling in your legs. ??? Do not take baths, swim, or use a hot tub until your health care provider approves. Ask your health care provider if you may take showers. ??? Do not use any products that contain nicotine or tobacco, such as cigarettes, e-cigarettes, and chewing tobacco. These can delay incision healing after surgery. If you need help quitting, ask your health care provider. ??? (Women) Talk with your health care provider if you plan to become or if you take control pills. ??? Keep all follow-up visits as told by your health care provider. This is important. Contact a health care provider if: ??? You have more redness, swelling, or pain at or around your stoma. ??? You have more fluid or blood coming from your stoma. ??? Your stoma feels warm to the touch. ??? You have pus or a bad smell coming from your stoma. ??? You have a fever. ??? You have loose stools that do not become thicker after several weeks. ??? You have bowel movements more often or less often than your health care provider tells you to expect. ??? You feel nauseous. ??? You vomit. ??? You have abdominal pain, bloating, pressure, or cramping. ??? You have problems with sexual activity. ??? You have an unusual lack of energy (fatigue). ??? You are unusually thirsty or you always have a dry mouth. Get help right away if: ??? You feel dizzy or light-headed. ??? You have pain or cramps in your abdomen that get worse or do not go away with medicine. ??? Your stoma suddenly changes size or color. ??? You have shortness of breath. ??? You have bleeding from your stoma that does not stop. ??? You vomit more than one time. ??? You faint. ??? You have internal tissue coming out of your stoma (prolapse). ??? You have an irregular heartbeat. ??? You have chest pain. Summary ??? Take msmz-ypx-qvsabxx and prescription medicines only as told by your health care provider. ??? Follow your health care provider's instructions about how to take care of your incision and stoma. ??? Follow instructions from your health care provider about eating or drinking restrictions. ??? Do not take baths, swim, or use a hot tub until your health care provider approves. Ask your health care provider if you may take showers. ??? Contact a health care provider if you have more redness, swelling, or pain at or around your stoma. This information is not intended to replace advice given to you by your health care provider. Make sure you discuss any questions you have with your health care provider. Document Released: 06/18/2016 Document Revised: 03/16/2019 Document Reviewed: 03/16/2019 [employer] Interactive Patient Education ?? 2020 [employer]. Ileostomy Home Guide An ileostomy is a surgical procedure to make an opening (stoma) for stool to leave your body. The surgery is done when a medical condition prevents stool from passing through the intestines and leaving your body through the rectum. During the surgery, a part of the small intestine (ileum) is attached to the stoma made in the abdominal wall. A bag or pouch is fitted over the stoma. Stool and gas will collect in the pouch. After having this surgery, you will need to empty and change your ileostomy pouch as needed. You will also need to take steps to care for the stoma. What are the risks? Risks include: ??? Skin irritation around the stoma. ??? Leaks in the pouching system. ??? Narrowing (constriction) of the stoma if the barrier is cut smaller than the stoma. Supplies needed: ??? One- or two-piece pouching system. ??? Curved scissors to cut the ostomy barrier to fit your stoma, if needed. ??? Ostomy belt, if needed. ??? Any other items your health care provider has recommended, such as ostomy powder, paste, or skin barrier film. ??? Soft washcloth or soft paper towel. How do I care for my stoma? Your stoma should look pink and moist. At first, the stoma may be swollen, but this swelling will go away within 6 weeks. To care for the stoma: ??? Keep the skin around the stoma clean and dry. ??? Use a clean, soft washcloth or soft paper towel to gently wash the stoma and the skin around it with warm water. ??? Use stoma powder or paste on your skin only as told by your health care provider. ??? If your skin becomes irritated, change your ileostomy pouch. The irritation may indicate that the pouch is leaking. ??? Measure the stoma opening regularly and record the size. Watch for changes. Share the information with your health care provider. ??? Check your stoma area every day for signs of infection. Check for: ? More redness, swelling, or pain. ? More fluid or blood. ? Pus or warmth. How do I care for my ileostomy pouch? The pouch that fits over the stoma can have either one or two pieces. ??? One-piece pouch: The skin barrier and the pouch are combined in one unit. ??? Two-piece pouch: The skin barrier and the pouch are separate pieces that attach to each other. Empty your pouch when it is one-third to one-half full. Do not let more stool or gas build up. This could cause the pouch to leak. Some pouches have a built-in gas release valve. Change your pouch every 3???4 days for the first 6 weeks, and then every 5???7 days after that. You should also change the pouch right away if the skin near the stoma looks irritated. How do I empty my ileostomy pouch? You will be taught how to empty your pouch before you leave the hospital. You may be told to: 1. Wash your hands with soap and water. If soap and water are not available, use hand family practice physician assistant. 2. Sit far back on the toilet. 3. Put pieces of toilet paper into the toilet water. This will prevent splashing as you empty the stool into the toilet bowl. 4. Unclip the tail end of the pouch or open it with the non-removable system that stays attached at the end of the pouch. 5. Unroll the tail of the pouch and empty the stool into the toilet. 6. Use toilet paper to clean the end of the pouch where the stool drained out. 7. Reroll the tail, and attach the clip or fastener that attaches the pieces together. 8. Wash your hands again. How do I change my ileostomy pouch? You will be taught how to change the pouch before you leave the hospital. You may be told to: 1. Lay out your supplies. 2. Wash your hands with soap and water. If soap and water are not available, use hand family practice physician assistant. 3. Carefully remove the old pouch. 4. Wash the stoma and the skin around the stoma. Allow the area to dry. Men may be told to carefully shave any hair around the stoma. 5. Use the stoma measuring guide that comes with your pouch to decide what size hole you will need to cut in the skin barrier piece. Choose the smallest possible size that will go around the stoma but will not touch it. 6. Use the guide to trace the mi'kmaq on the back of the skin barrier piece. 7. Cut out the hole. 8. Hold the skin barrier piece over the stoma to make sure the hole is the correct size. 9. Remove the adhesive paper backing from the skin barrier piece. 10. If instructed by your health care provider, squeeze stoma paste around the opening of the skin barrier piece. 11. Clean and dry the skin around the stoma again. 12. Carefully fit the skin barrier piece over your stoma. 13. If you are using a two-piece pouch, snap the pouch onto the skin barrier piece. 14. Close the tail of the pouch. 15. Put your hand over the top of the skin barrier piece to help warm it for about 5 minutes. This helps it conform to your body better. 16. Wash your hands again. What are some general tips? Avoid wearing tight clothing over your stoma. ??? You can shower with or without the pouch in place. Do not use harsh or oily soaps or lotions. Always keep the pouch on if you are taking a bath or swimming. ??? If your pouch gets wet, you can dry it with a chair maker on the cool setting. ??? Whenever you leave home, take extra clothing and ostomy supplies with you, including a skin barrier and pouch. ??? Store all supplies in a cool, dry place. Do not leave supplies in extreme heat as this can melt the parts. ??? Return to your normal activities as told by your health care provider. Ask your health care provider what activities are safe for you. Where to find more information ??? [facility]: www.ostomy.org Contact a health care provider if: ??? You have more redness, swelling, or pain around your stoma. ??? You have more fluid or blood coming from your stoma. ??? Your stoma feels warm to the touch. ??? You have pus coming from your stoma. ??? Your stoma extends in or out farther than normal. ??? Your stoma becomes purple, black, or pale white. ??? You need to change the pouch every day. ??? You have a fever. ??? You have abdominal pain, nausea, or bloating. ??? No stool is passing from the stoma. ??? You have diarrhea, requiring you to empty the pouch more frequently than normal. Get help right away if: ??? Your stool is bloody. ??? You vomit. ??? You have trouble breathing. ??? You feel dizzy or light-headed. Summary ??? You will need to empty and change your ileostomy pouch as told by your health care provider. ??? You will need to take steps to care for the stoma. ??? Contact a health care provider if you need to change the pouch every day, have abdominal pain, nausea, or bloating, or if you have diarrhea, requiring you to empty the pouch more frequently than normal. ??? Get help right away if your stool is bloody. This information is not intended to replace advice given to you by your health care provider. Make sure you discuss any questions you have with your health care provider. Document Released: 07/10/2004 Document Revised: 06/11/2019 Document Reviewed: 06/11/2019 [employer] Interactive Patient Education ?? 2020 [employer]. Ileostomy Ileostomy is a procedure to permanently or temporarily redirect part of the small intestine (ileum) to an external opening (stoma) in the abdomen. This means that waste is passed through the stoma and into an external bag (ostomy pouch), instead of passing through the rest of the intestines and the rectum (bowel). You may need this procedure if your bowel is diseased or has been partially removed. Tell a health care provider about: ??? Any allergies you have. ??? All medicines you are taking, including vitamins, herbs, eye drops, creams, and svlb-blb-ofagoxd medicines. ??? Any problems you or family members have had with anesthetic medicines. ??? Any blood disorders you have. ??? Any surgeries you have had. ??? Any medical conditions you have or have had. ??? Whether you are or may be . What are the risks? Generally, this is a safe procedure. However, problems may occur, including: ??? Infection. ??? Bleeding. ??? Allergic reactions to medicines. ??? Damage to other structures or organs. ??? Skin irritation around the stoma. ??? Narrowing or collapsing of the stoma. ??? Blockage of the intestine (ileus). ??? Tissue bulging through a weak spot in the abdomen muscles (hernia). ??? Part of the small intestine coming out through the stoma (prolapse). ??? Difficulty absorbing nutrients from foods. ??? Dehydration. What happens before the procedure? Exams and tests ??? You will have a physical exam, which may include a rectal exam. ??? You may have tests, such as: ? Blood tests. ? Stool tests. ? X-rays. ? Colonoscopy. Medicines Ask your health care provider about: ??? Changing or stopping your regular medicines. This is especially important if you are taking diabetes medicines or blood thinners. ??? Taking medicines such as aspirin and ibuprofen. These medicines can thin your blood. Do not take these medicines unless your health care provider tells you to take them. ??? Taking jcxh-ahi-grysxic medicines, vitamins, herbs, and supplements. Eating and drinking Follow instructions from your health care provider about eating and drinking, which may include: ??? 8 hours before the procedure ??? stop eating heavy meals or foods, such as meat, fried foods, or fatty foods. ??? 6 hours before the procedure ??? stop eating light meals or foods, such as toast or cereal. ??? 6 hours before the procedure ??? stop drinking milk or drinks that contain milk. ??? 2 hours before the procedure ??? stop drinking clear liquids. Staying hydrated Follow instructions from your health care provider about hydration, which may include: ??? Up to 2 hours before the procedure ??? you may continue to drink clear liquids, such as water, clear fruit juice, black coffee, and plain tea. General instructions ??? A cee will be put on your abdomen where the stoma will be placed to ensure that it is in a good location for care. ??? Ask your health care provider what steps will be taken to help prevent infection. These may include: ? Removing hair at the surgery site. ? Washing skin with a germ-killing soap. ? Taking antibiotic medicine. ??? Do not use any products that contain nicotine or tobacco for at least 4???6 weeks before the procedure. These products include cigarettes, e-cigarettes, and chewing tobacco. If you need help quitting, ask your health care provider. What happens during the procedure? An IV will be inserted into one of your veins. ??? You may be given a medicine to help you relax (sedative). ??? You will be given a medicine to make you fall asleep (general anesthetic). ??? An incision will be made in your abdomen. ??? Your ileum will be cut so that it is divided in two. The end of the ileum will be attached to your abdomen with stitches (sutures) to make the stoma. ??? An ostomy pouch will be attached to your stoma. ??? Your incision will be covered with a bandage (dressing). The procedure may vary among health care providers and hospitals. What happens after the procedure? You may continue to receive fluids and medicines through an IV. ??? You will have some pain. Medicines will be available to help you. ??? Your blood pressure, heart rate, breathing rate, and blood oxygen level will be monitored until you leave the hospital. ??? You may not be able to drink fluids or eat solid food for at least 24 hours after your procedure. You may be given ice chips to suck on until you are able to drink fluids. ??? You may have fluid draining from your stoma and your rectum. ??? You will be taught how to care for your stoma and ostomy pouch. ??? Your stoma may be dark-colored, swollen, and bruised. ??? You may have to wear compression stockings. These stockings help to prevent blood clots and reduce swelling in your legs. Summary ??? Ileostomy is a procedure to permanently or temporarily redirect part of the small intestine (ileum) to an external opening (stoma) in the abdomen. This means that waste is passed through the stoma and into an external bag (ostomy pouch). ??? Before the procedure, you will have a cee put on your abdomen where the stoma will be placed to ensure that it is in a good location for care. ??? Before the procedure, follow instructions from your health care provider about medicines and about eating and drinking. ??? Once the stoma has been created, an ostomy pouch will be attached to your stoma. ??? You will be taught how to care for your stoma and ostomy pouch. This information is not intended to replace advice given to you by your health care provider. Make sure you discuss any questions you have with your health care provider. Document Released: 06/18/2016 Document Revised: 03/16/2019 Document Reviewed: 03/16/2019 [employer] Interactive Patient Education ?? 2020 [employer]. loperamide (brii PER a mide) Diamode, Imodium A-D, Imodium A-D EZ Chews, Imodium A-D New Formula What is the most important information I should know about loperamide? You should not use loperamide if you have ulcerative colitis, bloody or tarry stools, diarrhea with a high fever, or diarrhea caused by antibiotic medication. Loperamide is safe when used as directed. TAKING TOO MUCH LOPERAMIDE CAN CAUSE SERIOUS HEART PROBLEMS OR . Serious heart problems may also happen if you take loperamide with other medicines. Ask a doctor or pharmacist about safely using medications together. Do not give loperamide to a child younger than 2 years old. What is loperamide? Loperamide is used to treat diarrhea. Loperamide is also used to reduce the amount of stool in people who have an ileostomy (re-routing of the bowel through a surgical opening in the stomach). Loperamide may also be used for purposes not listed in this medication guide. What should I discuss with my healthcare provider before taking loperamide? You should not use loperamide if you are allergic to it, or if you have: ?? stomach pain without diarrhea; ?? diarrhea with a high fever; ?? ulcerative colitis; ?? diarrhea that is caused by a bacterial infection; or ?? stools that are bloody, black, or tarry. Ask your doctor before using loperamide to treat diarrhea caused by taking an antibiotic (Clostridium difficile). Do not give loperamide to a child younger than 2 years old. Do not give this medicine to an older child or teenager without a doctor's advice. Ask a doctor or pharmacist if it is safe for you to take loperamide if you have: ?? a fever; ?? mucus in your stools; ?? liver disease; or ?? a heart rhythm disorder. Ask a doctor before using this medicine if you are . You should not breast-feed while you are using loperamide. How should I take loperamide? Use exactly as directed on the label, or as prescribed by your doctor. Loperamide is safe when used as directed. TAKING TOO MUCH LOPERAMIDE CAN CAUSE SERIOUS HEART PROBLEMS OR . Always follow directions on the medicine label about giving loperamide to a child. A safe dose of loperamide is different for an adult than for a child. Doses in children are based on the child's age. Take loperamide with a full glass of water. Diarrhea can cause your body to lose fluids and electrolytes. Drink plenty of liquids to keep from getting dehydrated. The loperamide chewable tablet must be chewed before swallowing. Shake the oral suspension (liquid) before you measure a dose. Use the dosing syringe provided, or use a medicine dose-measuring device (not a kitchen spoon). Not all liquid forms of loperamide are the same strengths. Carefully follow all dosing instructions for the medicine you are using. Store at room temperature away from moisture and heat. Do not allow the liquid medicine to freeze. Stop taking loperamide and call your doctor if you still have diarrhea after 2 days of treatment, or if you also have stomach bloating. What happens if I miss a dose? Since loperamide is used when needed, it does not have a daily dosing schedule. Call your doctor if your symptoms do not improve after using this medicine. What happens if I overdose? Seek emergency medical attention or call the Poison Help line at . An overdose of loperamide can be fatal. Overdose symptoms may include fast or irregular heartbeats, or fainting. A person caring for you should seek emergency medical attention if you pass out and are hard to wake up. What should I avoid while taking loperamide? Avoid drinking tonic water. It can interact with loperamide and may cause serious heart problems. Avoid becoming dehydrated by drinking plenty of fluids. Avoid vigorous exercise or exposure to hot weather if you are dehydrated. Avoid driving or hazardous activity until you know how this medicine will affect you. Your reactions could be impaired. What are the possible side effects of loperamide? Get emergency medical help if you have signs of an allergic reaction (hives, difficult breathing, swelling in your face or throat) or a severe skin reaction (fever, sore throat, burning in your eyes, skin pain, red or purple skin rash that spreads and causes blistering and peeling). Stop taking loperamide and call your doctor at once if you have: ?? diarrhea that is watery or bloody; ?? stomach pain or bloating; ?? ongoing or worsening diarrhea; or ?? fast or pounding heartbeats, fluttering in your chest, shortness of breath, and sudden dizziness (like you might pass out). Common side effects may include: ?? constipation; ?? dizziness, drowsiness; ?? nausea; or ?? stomach cramps. This is not a complete list of side effects and others may occur. Call your doctor for medical advice about side effects. You may report side effects to FDA at 8-875-ZIO-5800. What other drugs will affect loperamide? Sometimes it is not safe to use certain medications at the same time. Some drugs can affect your blood levels of other drugs you take. Ask a doctor or pharmacist about safely using medications together. Loperamide can cause a serious heart problem. Your risk may be higher if you also use certain other medicines for infections, heart problems, depression, mental illness, cancer, malaria, or HIV. Many drugs can affect loperamide. This includes prescription and uggx-jrt-kjwbpgi medicines, vitamins, and herbal products. Not all possible interactions are listed here. Tell your doctor about all your current medicines and any medicine you start or stop using. Where can I get more information? Your pharmacist can provide more information about loperamide. Remember, keep this and all other medicines out of the reach of children, never share your medicines with others, and use this medication only for the indication prescribed. Every effort has been made to ensure that the information provided by [employer]. [employer] is accurate, up-to-date, and complete, but no guarantee is made to that effect. Drug information contained herein may be time sensitive. [employer] information has been compiled for use by healthcare practitioners and consumers in the [place] and therefore [employer] does not warrant that uses outside of the [place] are appropriate, unless specifically indicated otherwise. [employer] drug information does not endorse drugs, diagnose patients or recommend therapy. [employer] drug information is an informational resource designed to assist licensed healthcare practitioners in caring for their patients and/or to serve consumers viewing this service as a supplement to, and not a substitute for, the expertise, skill, knowledge and judgment of healthcare practitioners. The absence of a warning for a given drug or drug combination in no way should be construed to indicate that the drug or drug combination is safe, effective or appropriate for any given patient. [facility] does not assume any responsibility for any aspect of healthcare administered with the aid of information [facility] provides. The information contained herein is not intended to cover all possible uses, directions, precautions, warnings, drug interactions, allergic reactions, or adverse effects. If you have questions about the drugs you are taking, check with your doctor, nurse or pharmacist. Copyright 5018-9786 [facility]. Version: 9.01. Revision Date: 10/08/2018. ciprofloxacin (oral) (SIP irene FLOX a sin) Cipro, Proquin XR What is the most important information I should know about ciprofloxacin? Ciprofloxacin can cause serious side effects, including tendon problems, nerve damage, serious mood or behavior changes, or low blood sugar. Stop using this medicine and call your doctor at once if you have symptoms such as: headache, hunger, irritability, numbness, tingling, burning pain, confusion, agitation, paranoia, problems with memory or concentration, thoughts of suicide, or sudden pain or movement problems in any of your joints. In rare cases, ciprofloxacin may cause damage to your aorta, which could lead to dangerous bleeding or . Get emergency medical help if you have severe and constant pain in your chest, stomach, or back. What is ciprofloxacin? Ciprofloxacin is a fluoroquinolone (ixbt-w-YGAH-o-lone) antibiotic that fights bacteria in the body. Ciprofloxacin is used to treat different types of bacterial infections. Ciprofloxacin is also used to treat people who have been exposed to anthrax or certain types of plague. Fluoroquinolone antibiotics can cause serious or disabling side effects that may not be reversible. Ciprofloxacin should be used only for infections that cannot be treated with a safer antibiotic. Ciprofloxacin may also be used for purposes not listed in this medication guide. What should I discuss with my healthcare provider before taking ciprofloxacin? You should not use ciprofloxacin if you are allergic to it, or if: ?? you also take tizanidine; or ?? you are allergic to other fluoroquinolones (gemifloxacin, levofloxacin, moxifloxacin, norfloxacin, ofloxacin, and others). Ciprofloxacin may cause swelling or tearing of a tendon (the fiber that connects bones to muscles in the body), especially in the Achilles' tendon of the heel. This can happen during treatment or up to several months after you stop taking ciprofloxacin. Tendon problems may be more likely in certain people (children and older adults, or people who use steroid medicine or have had an organ transplant). Tell your doctor if you have ever had: ?? tendon problems, bone problems, arthritis, or other joint problems (especially in children); ?? blood circulation problems, aneurysm, narrowing or hardening of the arteries; ?? heart problems, high blood pressure; ?? a genetic disease such as Marfan syndrome or Ehler's-Danlos syndrome; ?? diabetes; ?? a muscle or nerve disorder, such as myasthenia gravis; ?? kidney disease; ?? seizures or epilepsy; ?? a head injury or brain tumor; ?? long QT syndrome (in you or a family member); or ?? low levels of potassium in your blood (hypokalemia). Do not give this medicine to a child without medical advice. It is not known whether this medicine will harm an unborn baby. Tell your doctor if you are . You should not breast-feed while using this medicine. How should I take ciprofloxacin? Follow all directions on your prescription label and read all medication guides or instruction sheets. Use the medicine exactly as directed. You may take ciprofloxacin with or without food, at the same time each day. Shake the oral suspension (liquid) for 15 seconds before you measure a dose. Use the dosing syringe provided, or use a medicine dose-measuring device (not a kitchen spoon). Do not give ciprofloxacin oral suspension through a feeding tube. Swallow the extended-release tablet whole and do not crush, chew, or break it. Use this medicine for the full prescribed length of time, even if your symptoms quickly improve. Skipping doses can increase your risk of infection that is resistant to medication. Ciprofloxacin will not treat a viral infection such as the flu or a common cold. Do not share ciprofloxacin with another person. Store at room temperature away from moisture and heat. Do not allow the liquid medicine to freeze. Throw away any unused liquid after 14 days. What happens if I miss a dose? Take the medicine as soon as you can, but skip the missed dose if it is almost time for your next dose. Do not take two doses at one time. What happens if I overdose? Seek emergency medical attention or call the Poison Help line at . What should I avoid while taking ciprofloxacin? Do not take ciprofloxacin with dairy products such as milk or yogurt, or with calcium- fortified juice. You may eat or drink these products with your meals, but do not use them alone when taking ciprofloxacin. They could make the medication less effective. Using caffeine while taking ciprofloxacin can increase the effects of the caffeine. Antibiotic medicines can cause diarrhea, which may be a sign of a new infection. If you have diarrhea that is watery or bloody, call your doctor before using anti-diarrhea medicine. Ciprofloxacin could make you sunburn more easily. Avoid sunlight or tanning beds. Wear protective clothing and use sunscreen (SPF 30 or higher) when you are outdoors. Tell your doctor if you have severe burning, redness, itching, rash, or swelling after being in the sun. Avoid driving or hazardous activity until you know how this medicine will affect you. Your reactions could be impaired. What are the possible side effects of ciprofloxacin? Get emergency medical help if you have signs of an allergic reaction (hives, difficult breathing, swelling in your face or throat) or a severe skin reaction (fever, sore throat, burning in your eyes, skin pain, red or purple skin rash that spreads and causes blistering and peeling). Ciprofloxacin can cause serious side effects, including tendon problems, side effects on your nerves (which may cause permanent nerve damage), serious mood or behavior changes (after just one dose), or low blood sugar (which can lead to coma). Stop taking this medicine and call your doctor at once if you have: ?? low blood sugar--headache, hunger, sweating, irritability, dizziness, nausea, fast heart rate, or feeling anxious or shaky; ?? nerve symptoms in your hands, arms, legs, or feet--numbness, weakness, tingling, burning pain; ?? serious mood or behavior changes--nervousness, confusion, agitation, paranoia, hallucinations, memory problems, trouble concentrating, thoughts of suicide; or ?? signs of tendon rupture--sudden pain, swelling, bruising, tenderness, stiffness, movement problems, or a snapping or popping sound in any of your joints (rest the joint until you receive medical care or instructions). In rare cases, ciprofloxacin may cause damage to your aorta, the main blood artery of the body. This could lead to dangerous bleeding or . Get emergency medical help if you have severe and constant pain in your chest, stomach, or back. Also, stop using ciprofloxacin and call your doctor at once if you have: ?? severe stomach pain, diarrhea that is watery or bloody; ?? fast or pounding heartbeats, fluttering in your chest, shortness of breath, and sudden dizziness (like you might pass out); ?? the first sign of any skin rash, no matter how mild; ?? muscle weakness, breathing problems; ?? little or no urination; ?? jaundice (yellowing of the skin or eyes); or ?? increased pressure inside the skull--severe headaches, ringing in your ears, dizziness, nausea, vision problems, pain behind your eyes. Common side effects may include: ?? nausea, vomiting, diarrhea, stomach pain; ?? vaginal itching or discharge; ?? headache; or ?? abnormal liver function tests. This is not a complete list of side effects and others may occur. Call your doctor for medical advice about side effects. You may report side effects to FDA at 7-277-NTR-8396. What other drugs will affect ciprofloxacin? Some medicines can make ciprofloxacin much less effective when taken at the same time. If you take any of the following medicines, take your ciprofloxacin dose 2 hours before or 6 hours after you take the other medicine. ?? the ulcer medicine sucralfate, or antacids that contain calcium, magnesium, or aluminum (such as Maalox, Milk of Magnesia, Mylanta, Pepcid Complete, Rolaids, Tums, and others); ?? didanosine (Videx) powder or chewable tablets; ?? lanthanum carbonate or sevelamer; or ?? vitamin or mineral supplements that contain calcium, iron, magnesium, or zinc. Tell your doctor about all your other medicines, especially: ?? cyclosporine, methotrexate, metoclopramide, phenytoin, probenecid, ropinirole, sildenafil, or theophylline; ?? a blood thinner (warfarin, Coumadin, Jantoven); ?? a diuretic or 'water pill'; ?? heart rhythm medication; ?? insulin or oral diabetes medicine (check your blood sugar regularly); ?? medicine to treat depression or mental illness; ?? steroid medicine (such as prednisone); or ?? NSAIDs (nonsteroidal anti-inflammatory drugs)--ibuprofen (Advil, Motrin), naproxen (Aleve), celecoxib, diclofenac, indomethacin, meloxicam, and others. This list is not complete. Other drugs may affect ciprofloxacin, including prescription and ghem-fgf-lzebrnk medicines, vitamins, and herbal products. Not all possible drug interactions are listed here. Where can I get more information? Your pharmacist can provide more information about ciprofloxacin. Remember, keep this and all other medicines out of the reach of children, never share your medicines with others, and use this medication only for the indication prescribed. Every effort has been made to ensure that the information provided by [employer]. [employer] is accurate, up-to-date, and complete, but no guarantee is made to that effect. Drug information contained herein may be time sensitive. [employer] information has been compiled for use by healthcare practitioners and consumers in the [place] and therefore [employer] does not warrant that uses outside of the [place] are appropriate, unless specifically indicated otherwise. [employer] drug information does not endorse drugs, diagnose patients or recommend therapy. [employer] drug information is an informational resource designed to assist licensed healthcare practitioners in caring for their patients and/or to serve consumers viewing this service as a supplement to, and not a substitute for, the expertise, skill, knowledge and judgment of healthcare practitioners. The absence of a warning for a given drug or drug combination in no way should be construed to indicate that the drug or drug combination is safe, effective or appropriate for any given patient. [employer] does not assume any responsibility for any aspect of healthcare administered with the aid of information [employer] provides. The information contained herein is not intended to cover all possible uses, directions, precautions, warnings, drug interactions, allergic reactions, or adverse effects. If you have questions about the drugs you are taking, check with your doctor, nurse or pharmacist. Copyright 3443-9105 [employer]. Version: 22.02. Revision Date: 09/14/2019. betamethasone and clotrimazole topical (BAY ta METH a sone and kloe TRIM a zole TOP ik al) Lotrisone What is the most important information I should know about betamethasone and clotrimazole topical? Follow all directions on your medicine label and package. Tell each of your healthcare providers about all your medical conditions, allergies, and all medicines you use. What is betamethasone and clotrimazole topical? Betamethasone is highly potent steroid that reduces itching, swelling, and redness of the skin. Clotrimazole is an antifungal medication that fights infections caused by fungus. Betamethasone and clotrimazole topical (for the skin) is a combination medicine used to treat fungal skin infections such as athlete's foot, jock itch, and ringworm. Betamethasone and clotrimazole topical may also be used for purposes not listed in this medication guide. What should I discuss with my healthcare provider before using betamethasone and clotrimazole topical? You may not be able to use this medicine if you are allergic to betamethasone or clotrimazole, or if you have ever had an allergic reaction to: ?? other steroid medicines (such as dexamethasone, fludrocortisone, hydrocortisone, prednisone, triamcinolone, and others); or ?? other antifungal medicines (such as itraconazole, ketoconazole, miconazole, posaconazole, or voriconazole). Tell your doctor if you have ever had: ?? a skin reaction to any steroid medicine; ?? cataract or glaucoma; ?? liver disease; or ?? an adrenal gland disorder. Steroid medicines can increase the glucose (sugar) levels in your blood or urine. Tell your doctor if you have diabetes. Using highly potent steroid medicine during may increase the risk of low birthweight in the baby. Tell your doctor if you are or plan to become . It may not be safe to breastfeed while using this medicine. Ask your doctor about any risk. If you apply betamethasone and clotrimazole to your chest, avoid areas that may come into contact with the baby's mouth. If you are or , apply this medicine to the smallest skin area and for the shortest amount of time possible to treat your condition. This medicine is not approved for use by anyone younger than 17 years old. Children can absorb larger amounts of this medicine through the skin and may be more likely to have side effects. How should I use betamethasone and clotrimazole topical? Follow all directions on your prescription label and read all medication guides or instruction sheets. Use the medicine exactly as directed. Do not take by mouth. Topical medicine is for use only on the skin. Read and carefully follow any Instructions for Use provided with your medicine. Ask your doctor or pharmacist if you do not understand these instructions. Wash your hands before and after using betamethasone and clotrimazole, unless you are using this medicine to treat the skin on your hands. Apply a thin layer of medicine to the affected skin and rub it in gently. Do not apply this medicine over a large area of skin unless your doctor has told you to. Keep your skin clean and dry to avoid further infection. Do not cover the treated skin area with a bandage or other covering unless your doctor tells you to. Covering treated areas can increase the amount of medicine absorbed through your skin and may cause harmful effects. Shake betamethasone and clotrimazole lotion well just before each use. If you are treating the diaper area, do not use plastic pants or tight-fitting diapers. Do not use betamethasone and clotrimazole topical to treat diaper rash. Use this medicine for the full prescribed length of time, even if your symptoms quickly improve. Call your doctor if your symptoms do not improve after 1 week of using this medicine (or after 2 weeks if using the medicine on your feet). Store at room temperature away from moisture and heat. Store the lotion in an upright position. What happens if I miss a dose? Apply the medicine as soon as you can, but skip the missed dose if it is almost time for your next dose. Do not apply two doses at one time. What happens if I overdose? Seek emergency medical attention or call the Poison Help line at if anyone has accidentally swallowed the medication. High doses or long-term use of betamethasone and clotrimazole topical can lead to thinning skin, easy bruising, changes in body fat (especially in your face, neck, back, and waist), increased acne or facial hair, menstrual problems, impotence, or loss of interest in sex. What should I avoid while using betamethasone and clotrimazole topical? Avoid getting this medicine in your eyes, mouth, or vagina. Do not use betamethasone and clotrimazole topical to treat any skin condition that has not been checked by your doctor. Avoid using other topical steroid medications on the areas you treat with betamethasone and clotrimazole, unless your doctor tells you to. What are the possible side effects of betamethasone and clotrimazole topical? Get emergency medical help if you have signs of an allergic reaction: hives; difficulty breathing; swelling of your face, lips, tongue, or throat. Call your doctor at once if you have: ?? worsening of your skin condition; ?? redness, warmth, swelling, oozing, or severe irritation of any treated skin; ?? blurred vision, tunnel vision, eye pain, or seeing halos around lights; ?? high blood sugar--increased thirst, increased urination, dry mouth, fruity breath odor; or ?? possible signs of absorbing this medicine through your skin--weight gain (especially in your face or your upper back and torso), slow wound healing, thinning or discolored skin, increased body hair, muscle weakness, nausea, diarrhea, tiredness, mood changes, menstrual changes, sexual changes. Common side effects may include: ?? numbness, tingling, or stinging; ?? skin dryness or rash; ?? swelling; or ?? new infections. This is not a complete list of side effects and others may occur. Call your doctor for medical advice about side effects. You may report side effects to FDA at 1-165-WPW-2682. What other drugs will affect betamethasone and clotrimazole topical? Medicine used on the skin is not likely to be affected by other drugs you use. But many drugs can interact with each other. Tell each of your healthcare providers about all medicines you use, including prescription and nxby-dix-xkpossa medicines, vitamins, and herbal products. Where can I get more information? Your pharmacist can provide more information about betamethasone and clotrimazole topical. Remember, keep this and all other medicines out of the reach of children, never share your medicines with others, and use this medication only for the indication prescribed. Every effort has been made to ensure that the information provided by [employer]. ('[employer]') is accurate, up-to-date, and complete, but no guarantee is made to that effect. Drug information contained herein may be time sensitive. [employer] information has been compiled for use by healthcare practitioners and consumers in the [place] and therefore [employer] does not warrant that uses outside of the [place] are appropriate, unless specifically indicated otherwise. [employer]'s drug information does not endorse drugs, diagnose patients or recommend therapy. [employer] drug information is an informational resource designed to assist licensed healthcare practitioners in caring for their patients and/or to serve consumers viewing this service as a supplement to, and not a substitute for, the expertise, skill, knowledge and judgment of healthcare practitioners. The absence of a warning for a given drug or drug combination in no way should be construed to indicate that the drug or drug combination is safe, effective or appropriate for any given patient. [facility] does not assume any responsibility for any aspect of healthcare administered with the aid of information [employer] provides. The information contained herein is not intended to cover all possible uses, directions, precautions, warnings, drug interactions, allergic reactions, or adverse effects. If you have questions about the drugs you are taking, check with your doctor, nurse or pharmacist. Copyright 4009-1153 [facility] [employer]al. Version: 5.03. Revision Date: 09/07/2019. metronidazole (me troe NI da zolrojas) FIRST Metronidazole, Flagyl, Flagyl 375 What is the most important information I should know about metronidazole? You should not use metronidazole if you have taken disulfiram (Antabuse) within the past 2 weeks. Do not drink alcohol or consume foods or medicines that contain propylene glycol while you are taking metronidazole and for at least 3 days after you stop taking it. What is metronidazole? Metronidazole is an antibiotic that is used to treat bacterial infections of the vagina, stomach, liver, skin, joints, brain, and respiratory tract. Metronidazole will not treat a vaginal yeast infection. Metronidazole may also be used for purposes not listed in this medication guide. What should I discuss with my healthcare provider before taking metronidazole? You should not take metronidazole if you are allergic to it, or if you have taken disulfiram (Antabuse) within the past 2 weeks. Do not take metronidazole during the first trimester of . This medicine can harm an unborn baby. Tell your doctor if you are . Tell your doctor if you have ever had: ?? liver or kidney disease; ?? Cockayne syndrome (a rare genetic disorder); ?? a stomach or intestinal disease such as Crohn's disease; ?? a blood cell disorder such as anemia (lack of red blood cells) or low white blood cell (WBC) counts; ?? a fungal infection anywhere in your body; or ?? a nerve disorder. In animal studies, metronidazole caused certain types of tumors, some of which were cancerous. However, very high doses are used in animal studies. It is not known whether these effects would occur in people using regular doses. Ask your doctor about your risk. Metronidazole can pass into breast milk and may harm a nursing baby. You should not breast-feed within 24 hours after using metronidazole. If you use a breast pump during this time, throw out any milk you collect. Do not feed it to your baby. Do not give this medicine to a child without medical advice. How should I take metronidazole? Follow all directions on your prescription label and read all medication guides or instruction sheets. Use the medicine exactly as directed. Shake the oral suspension (liquid) before you measure a dose. Use the dosing syringe provided, or use a medicine dose-measuring device (not a kitchen spoon). Do not crush, chew, or break an extended-release tablet. Swallow it whole. If you are treating a vaginal infection, your sexual partner may also need to take metronidazole (even if no symptoms are present) or you could become reinfected. Metronidazole is usually given for up to 10 days in a row. You may need to repeat this dosage several weeks later. Use this medicine for the full prescribed length of time, even if your symptoms quickly improve. Skipping doses can increase your risk of infection that is resistant to medication. Metronidazole will not treat a viral infection such as the flu or a common cold. This medicine can affect the results of certain medical tests. Tell any doctor who treats you that you are using metronidazole. Store at room temperature away from moisture and heat. What happens if I miss a dose? Take the medicine as soon as you can, but skip the missed dose if it is almost time for your next dose. Do not take two doses at one time. What happens if I overdose? Seek emergency medical attention or call the Poison Help line at . Overdose symptoms may include nausea, vomiting, and loss of balance or coordination. What should I avoid while taking metronidazole? Do not drink alcohol or consume food or medicines that contain propylene glycol while you are taking metronidazole. You may have unpleasant side effects such as headaches, stomach cramps, nausea, vomiting, and flushing (warmth, redness, or tingly feeling). Avoid alcohol or propylene glycol for at least 3 days after you stop taking metronidazole. Check the labels of any medicines or food products you use to make sure they do not contain alcohol or propylene glycol. What are the possible side effects of metronidazole? Get emergency medical help if you have signs of an allergic reaction: hives; difficult breathing; swelling of your face, lips, tongue, or throat. Call your doctor at once if you have: ?? diarrhea; ?? painful or difficult urination; ?? trouble sleeping, depression, irritability; ?? headache, dizziness, weakness; ?? a light-headed feeling (like you might pass out); or ?? blisters or ulcers in your mouth, red or swollen gums, trouble swallowing. Stop taking the medicine and call your doctor right away if you have neurologic side effects (more likely to occur while taking metronidazole assisted): ?? numbness, tingling, or burning pain in your hands or feet; ?? vision problems, pain behind your eyes, seeing flashes of light; ?? muscle weakness, problems with coordination; ?? trouble speaking or understanding what is said to you; ?? a seizure; or ?? fever, neck stiffness, and increased sensitivity to light. Metronidazole can cause life-threatening liver problems in people with Cockayne syndrome. If you have this condition, stop taking metronidazole and contact your doctor if you have signs of liver failure--nausea, stomach pain (upper right side), dark urine, alexia-colored stools, or jaundice (yellowing of the skin or eyes). Side effects may be more likely in older adults. Common side effects may include: ?? nausea, vomiting, loss of appetite, stomach pain; ?? diarrhea, constipation; ?? unpleasant metallic taste; ?? rash, itching; ?? vaginal itching or discharge; ?? mouth sores; or ?? swollen, red, or 'hairy' tongue. This is not a complete list of side effects and others may occur. Call your doctor for medical advice about side effects. You may report side effects to FDA at 2-265-GAG-0971. What other drugs will affect metronidazole? Sometimes it is not safe to use certain medications at the same time. Some drugs can affect your blood levels of other drugs you take, which may increase side effects or make the medications less effective. Tell your doctor about all your other medicines, especially: ?? busulfan; ?? lithium; or ?? a blood thinner--warfarin, Coumadin, Jantoven. This list is not complete. Other drugs may affect metronidazole, including prescription and [id number]-[id number] medicines, vitamins, and herbal products. Not all possible drug interactions are listed here. Where can I get more information? Your pharmacist can provide more information about metronidazole. Remember, keep this and all other medicines out of the reach of children, never share your medicines with others, and use this medication only for the indication prescribed. Every effort has been made to ensure that the information provided by [employer]. [employer]') is accurate, up-to-date, and complete, but no guarantee is made to that effect. Drug information contained herein may be time sensitive. [employer] information has been compiled for use by healthcare practitioners and consumers in the [place] and therefore [employer] does not warrant that uses outside of the [place] are appropriate, unless specifically indicated otherwise. [employer] drug information does not endorse drugs, diagnose patients or recommend therapy. [employer] drug information is an informational resource designed to assist licensed healthcare practitioners in caring for their patients and/or to serve consumers viewing this service as a supplement to, and not a substitute for, the expertise, skill, knowledge and judgment of healthcare practitioners. The absence of a warning for a given drug or drug combination in no way should be construed to indicate that the drug or drug combination is safe, effective or appropriate for any given patient. [employer] does not assume any responsibility for any aspect of healthcare administered with the aid of information [employer] provides. The information contained herein is not intended to cover all possible uses, directions, precautions, warnings, drug interactions, allergic reactions, or adverse effects. If you have questions about the drugs you are taking, check with your doctor, nurse or pharmacist. documented in this encounter Plan of Treatment Not on file documented as of this encounter Visit Diagnoses Not on filedocumented in this encounter
--- OUTSIDE RECORDS SUMMARY | 2025-02-23 12:35 | XMS_ITS | CCD ---
Author Name Interface, J2Zonnzga lity Address [address] [place], [place] [id number] [place] [address] [facility] Address [address] [place] [id number] Reason for Visit Social History Date Name Value Sex Female
--- OUTSIDE RECORDS SUMMARY | 2025-02-23 12:35 | XMS_ITS | Encounter Summary ---
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 Name Role Phone Unavailable Primary Care Provider Unavailabl e Encounter Details Date Type Department Care Team (Late st Contact Info) Description 05/26/2020 Transcribed Document [facility] [place] [facility] On [facility] of [facility] [place] [address] ProviderNuha MD [address] [place] [address] Social History Tobacco Use Types Packs/Day Years Used Date Smoking Tobacco: Never Assessed Comments Unknown Sex and Gender Information Value Date Recorded Sex Assigned at Not on file Legal Sex Female 2:42 PM CDT Gender Identity Not on file Sexual Orientation Not on file documented as of this encounter Miscellaneous Notes * Cerner Conversion Note - Historical ProviderMD - 05/26/2020 4:25 PM 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 Admission History, Adult Entered On: 05/26/2020 19:45 EST Performed On: 05/26/2020 16:25 EST by Ayaka Robb RN Advance Directive Patient has Advance Directive *Q : Yes, Advance Directive not with the patient Request Family/Rep to Provide Copy of AD : Yes Advance Directive Type : Living will Copy Advance Directive Verified/on Chart : No Ayaka Robb RN - 05/26/2020 19:31 EST Anesthesia/Transfusion History Family History of Anesthesia Reaction : Prior transfusion without reaction Transfusion History : Prior anesthesia without reaction Family History of Anesthesia Reaction : None Ayaka Robb RN - 05/26/2020 19:31 EST Anticipated Discharge Needs Discharge To, Anticipated : Home Anticipated Discharge Needs at This Time : ADLs Ayaka Robb RN - 05/26/2020 19:31 EST Education Topics, Admission Orientation DCP GENERIC CODE Advance Directives : Verbalizes understanding Allergy Band Applied : Verbalizes understanding Assessment/Vital Signs : Verbalizes understanding Bed Control : Verbalizes understanding Call Light : Verbalizes understanding Confidentiality : Verbalizes understanding Diet/Room Service : Verbalizes understanding Fall Prevention : Verbalizes understanding Hand Hygiene : Verbalizes understanding Healthcare Provider Visit : Verbalizes understanding ID Band Applied : Verbalizes understanding Isolation Precautions : Verbalizes understanding Orientation to Room/Bathroom : Verbalizes understanding Patient Bill of Rights : Verbalizes understanding Patient Rights/Responsibilities : Verbalizes understanding Patient Safety : Verbalizes understanding Personal Privacy Code : Verbalizes understanding Rapid Response Initiated by Patient/Family : Verbalizes understanding Rounding : Verbalizes understanding Siderails use/risks : Verbalizes understanding Skin Precautions : Verbalizes understanding Smoking Policy : Verbalizes understanding Telemetry Monitoring : Verbalizes understanding Television/Phone : Verbalizes understanding Visiting Policy : Verbalizes understanding Ayaka Robb RN - 05/26/2020 19:31 EST Functional Assessment Living Situation : Home Patient Lives With : Spouse Persons Assisting Patient at Home : Alone Current Daily Living Assistance : None Sensory Deficits : None Mobility Assistance Prior to Admission : Independent YOUNG Hx Falls Immediate/Within 3 Months : No Current Home Treatments : None Home Equipment : Bar/Rails, safety, Bar, grab, Walker Ayaka Robb RN - 05/26/2020 19:31 EST General Info Preferred Name : alvarez Mode of Arrival on Unit : Ambulatory Legal Guardian : Spouse Legal Guardian : No Support Person/Pt Rep Name : Laci Stanford Support Person/Pt Rep Contact Information : [phone] Want Family/Rep/Phys Notified of Admit : No Emergency Contact #1 : mario stanford Emergency Contact #1 Emergency Contact #1 Relationship : spouse Emergency Contact #2 : angel stanford Emergency Contact #2 Emergency Contact #2 Relationship : son Chief Complaint : pt had abn labs today when she was having her screening for SX on saturday, K is over 7, Information Obtained From : Patient Primary Language : Gibraltarian Preferred Communication Mode : Verbal Communication Barrier : None [place]ar Alarm Inspector Needed : Ayaka Walls RN - 05/26/2020 19:31 EST Fall Risk Scales ABCs Fall Injury Risk Identification : Age, Bones ABC Fall Injury Risk : Moderate to high injury risk Injury Moderate to High Risk Interventions : Bed alarm on, Fall contract/letter per facility policy, Personal alarm on, Specialty low bed, Supervise toileting as indicated, Toileting schedule, Transport methods appropriate to patient YOUNG Hx Falls Immediate/Within 3 Months : No Young Secondary Diagnosis : Yes YOUNG Use of Ambulatory Aid : Bed rest/Nurse assist YOUNG IV Therapy or IV Access : Yes Young Gait/Transferring : Weak Young Mental Status : Oriented to own ability Young Fall Risk Score : 45 YOUNG Fall Scale Risk Level : 25-45 Medium Risk [place] Fall Interventions : Adequate lighting, Assistive devices [...] Fall Moderate to High Risk Interventions : Fall contract/letter per facility policy, Toileting schedule Fall Risk Scale Calc Temp : 0 Ayaka Robb RN - 05/26/2020 19:31 EST Health Histories Smoking Status : Never (less than 100 in lifetime; none in last 30 days) Smokeless Tobacco Status : Never Implant/Device Type, Rippler and Model : implanted port a cath on right upper subclavian Ayaka Robb RN - 05/26/2020 19:31 EST Social History (As Of: 05/26/2020 19:45:35 EST) Tobacco: Never (less than 100 in lifetime) Smoking Status. Never Smokeless Tobacco Status. (Last Updated: 12/18/2019 12:01:31 EDT by NATONIO MCDONALD, RN) Alcohol: Alcohol Use History No. (Last Updated: 12/18/2019 12:01:37 EDT by ANTONIO MCDONALD, RN) Substance Abuse: Drug Use Hx: No. Use in Last 12 Months: No. (Last Updated: 12/18/2019 12:01:43 EDT by ANTONIO MCDONALD, RN) Home/Environment: Lives with Spouse. Home equipment: Respiratory treatments, Walker/Cane. (Last Updated: 12/18/2019 12:02:00 EDT by ANTONIO MCDONALD RN) Height and Weight, Clinical Dosing Height Source : Stated Height Entry Format : [place] Height, Feet : 5 ft(Converted to: 152 cm, 60 Inch) Height, Inches : 3 Inch(Converted to: 0 ft 3 Inch, 7.62 cm) Clinical Height : 160.02 cm Weight Source : Stated [place] Body Weight : 52 kg Ayaka Robb RN - 05/26/2020 19:31 EST Estimated Weight Type of Weight Measurement Est : [place] Weight, est lb : 162 lb(Converted to: 73 kg) Weight, est oz : 0 oz Estimated Clinical Dosing Weight : 73.64 kg Ayaka Robb RN - 05/26/2020 19:31 EST Infectious Disease History Has the patient ever been tested for COVID-19? : Yes, Patient stated results pending Date of COVID-19 test known? : Yes Date of COVID-19 Test : 05/26/2020 EST Date Comment : negative Does patient have symptoms of COVID-19? : No COVID19 Screening : No Experiencing Infectious Disease Symptoms : No symptoms Physical contact outside [place] in the last 30 days : No Infectious Disease History : Chicken pox/Shingles, Measles, MRSA, Mumps Tuberculosis Symptoms : None Ayaka Robb RN - 05/26/2020 19:31 EST Tetanus Immunization Status Previous Tetanus Immunizations : No qualifying data available. Tetanus Immunization : Unknown Ayaka Robb RN - 05/26/2020 19:31 EST Influenza Vaccine Asmt, Adult Previous Vaccines from Immunization Schedule : No qualifying data available. Influenza Immunization, Current Season : Yes Influenza Immunization Date : 05/10/2020 EDT Ayaka Robb RN - 05/26/2020 19:31 EST Pneumococcal Vaccine Previous Vaccines from Immunization Schedule : No qualifying data available. Pneumonia Immunization Received : Yes Pneumonia Immunization Date : 05/31/2019 EST Ayaka Robb RN - 05/26/2020 19:31 EST Order Details Transport Mode Order Detail : Portable Isolation Precautions Order Detail : Standard Precautions Order Detail : 0 IV Order Detail : 1 Oxygen Order Detail : 0 Nurse Collect Order Detail : 1 Lift/Transfer : Minimal Central Line Order Detail : No Room Service : Appropriate Arterial Line : No Patient Needs Meds Crushed/Liquid : No Ayaka Robb RN - 05/26/2020 19:31 EST Nutrition History Feeding Ability : Independent Adaptive Feeding Equipment : None Adaptive Feeding Equipment : Regular, Other: needs gi soft no bottom teeth Oral Medication Administration : By mouth Eating Poorly Due to Decreased Appetite : No Unplanned Weight Loss in Past 3-6 Months : No Malnutrition Screening Tool Total(mal) : 0 Malnutrition Screening Tool Risk Level : Patient not at risk Ayaka Robb RN - 05/26/2020 19:31 EST [place] Suicide Severity Rating Scale (C-SSRS) CSSRS Past Month Wish to be : No CSSRS Past Month Suicidal Thoughts : No CSSRS Lifetime Suicide Behavior : No Suicide Severity Rating Score : 0 Suicide Severity Rating : No Additional Care Required at this time Ayaka Robb RN - 05/26/2020 19:31 EST Psychosocial History Does Someone Depend on You for Care? : No Chronic/Terminal Illness w/Freq Visits : Yes Do You Have a History of the Following? : Patient denies history Currently in Unsafe Situation : No Restraining Order Against Another Person : No Do You Have a Support System? : Yes Hospital/DC Financial Concerns : No Stressors Affecting Hospitalization/DC : No Ayaka Robb RN - 05/26/2020 19:31 EST Sleep Apnea Risk Assmt BiPAP/CPAP Ordered for Home Use : No Hx of Obstructive Sleep Apnea Diagnosis : Yes Age over 50 Years Old : Yes Gender Male : No Ayaka Robb RN - 05/26/2020 19:31 EST Spiritual/Cultural Needs Significant Loss/Crisis in Past 3 Years : No Significant Distress/Coping/Need Support : No Any Spiritual/Cultural Needs or Requests : No Yazdanism Preference : Jew Ayaka Robb RN - 05/26/2020 19:31 EST Valuables and Belongings Valuables and Belongings : Clothing, Personal items Clothing : Common streetwear Clothing Disposition : Bedside Personal Items : Cell phone Personal Items Disposition : Bedside Ayaka Robb RN - 05/26/2020 19:31 EST Electronically signed by Bac[facility] Conversion Director Child Abuse Therapy Cerner at 11/05/2022 6:00 PM CDT documented in this encounter Plan of Treatment Not on file documented as of this encounter Visit Diagnoses Not on filedocumented in this encounter
--- OUTSIDE RECORDS SUMMARY | 2025-02-23 12:35 | XMS_ITS | Encounter Summary ---
Author Organization [facility] ([place], [place], [place], [place]) Address [address] [place] [address] Care Team Providers Care Nurse Charge Rn Name Role Phone Unavailable Primary Care Provider Unavailabl e Encounter Details Date Type Department Care Team (Late st Contact Info) Description 12/28/2019 Transcribed Document [facility] Radiology [address] [place] [address] Breana Kuhn MD [address] [place] [id number] Social History Tobacco Use Types Packs/Day Years Used Date Smoking Tobacco: Never Assessed Comments Unknown Sex and Gender Information Value Date Recorded Sex Assigned at Not on file Legal Sex Female 2:42 PM CDT Gender Identity Not on file Sexual Orientation Not on file documented as of this encounter Miscellaneous Notes * Cerner Conversion Note - Breana Kuhn MD - 12/28/2019 9:14 AM EDT DATE OF ADMISSION: 12/22/2019 DATE OF DISCHARGE: 12/28/2019 PRIMARY CARE PROVIDER: Jenn Rosales MD PRINCIPAL DISCHARGE DIAGNOSES: 1. Colovaginal fistula, status post repair. 2. Pelvic abscess with a wound culture growing Klebsiella pneumoniae with extended spectrum beta-lactamase positive. 3. Acute kidney injury with postoperative development of chronic kidney disease stage 3. 4. Multiple myeloma. 5. Immunocompromised host. 6. Chronic pain with opioid dependence. PRINCIPAL CONSULTATIONS: 1. Colorectal consult with Dr. Decker. 2. ID consult with Dr. Urrutia. 3. Nephrology consult with Dr. Pierre. PRINCIPAL PROCEDURE: The patient underwent a colovaginal fistula repair with a LAR performed by Dr. Decker on 12/22/2019. She also had drainage of pelvic abscess with a diverting loop ileostomy that was performed along with left ureterolysis. ADMISSION HISTORY AND HOSPITAL COURSE: This is a 69-year-old white female with a known history of colovaginal fistula with recurrent UTI. She had underlying multiple myeloma and had also been on p.o. medications, which had been on hold 2 weeks prior to her surgery. The patient presented to outpatient surgery for the colovaginal fistula repair. The patient underwent the LAR as outlined above. She also developed some postoperative acute renal failure. She did have underlying CKD with a creatinine of 1.4 and it peaked up to 2.3 post surgery. The patient also had recently been on NSAIDs and also having high output from the ileostomy. The patient was hydrated well. The NSAIDs were discontinued. The patient's renal function gradually improved and creatinine returned to her baseline about 1.3. With regard to the wound culture from the pelvic abscess drainage, she did grow Klebsiella pneumoniae, which was ESBL positive. The patient was seen and evaluated by Dr. Urrutia. Initially, she was on IV antibiotics. She was on Merrem and later on she, prior to discharge, was transitioned to p.o. antibiotics. The patient was also seen and evaluated by the ostomy nurse. Ostomy teaching was performed. She did also develop some mild erythema due to leakage around the site of the ostomy as well as over the site of the HERNESTO drain. Those have since resolved with addition of topical antifungal agent. Also, she did have some intertrigo. The HERNESTO drain has been removed prior to discharge. The patient was also having indwelling Coleman catheter, that has also been removed prior to discharge and she is voiding well. On the day of discharge, the patient was doing well, awake, alert, and oriented and afebrile. She is tolerating a diet. Her blood pressure is 100/50. Lung exam is clear to auscultation. Abdomen exam is soft. The erythema has much improved around the intertriginous area. Ostomy seems to be functioning well in the right lower quadrant. Of note, the patient had been earlier on diuretics. These have all been discontinued given that she needs adequate volume replacement with her ongoing output from the ileostomy and the need for focusing on her fluid intake to prevent dehydration has also been discussed with the patient and she verbalizes understanding. Furthermore, Dr. Decker has recommended that she stay on loperamide and depending upon her output, maximum of 8 tablets a day. Otherwise, the patient understands she is at high risk for acute renal failure with dehydration. On the day of discharge, the patient was feeling well and has been cleared for discharge by the [facility] [employer] [facility] including Colorectal an ID Services. DISCHARGE DIET: Would be regular with plenty of fluid intake. DISCHARGE ACTIVITY: As tolerated with no undue or strenuous activities until followup with her surgeon. DISCHARGE MEDICATIONS: 1. Albuterol inhaler q.i.d. p.r.n. 2. Symbicort 160/4.5 two puffs b.i.d. 3. Mucinex 600 mg b.i.d. 4. Singulair 10 mg daily. 5. Requip 0.25 mg b.i.d. 6. Albuterol nebulizer q.8 hours p.r.n. 7. Baby aspirin 1 tablet daily. 8. Lotrisone topical cream to the groin area b.i.d. for 1 more week. 9. Wellbutrin 150 mg daily. 10. Cipro 500 mg b.i.d. for 12 days. 11. Flagyl 500 mg t.i.d. for 12 days. 12. Vitamin B12 2500 mcg daily. 13. Fentanyl 25 mcg transdermal patch q.72 hours. 14. Flonase nasal spray b.i.d. 15. Neurontin 300 mg b.i.d. 16. Lidoderm topical patch on and off q.12 hours daily. 17. Loperamide 2 mg b.i.d. and also to take up to a maximum of 8 pills depending upon the output from the ileostomy. 18. Mag oxide 400 mg b.i.d. 19. Prilosec 40 mg daily. DISCHARGE FOLLOWUP: 1. With Dr. Decker in 2 weeks. 2. Follow up with Dr. Urrutia in 1 week. All other discharge instructions have been reviewed with the patient including the need for appropriate ostomy care as well as following up with her fluid intake in order to avoid dehydration and/or electrolyte abnormalities. Home health is also being arranged at the time of discharge and transferring entity towards the discharge dispositioning including review of the above discharge preparation, discussion with the patient, and care coordination totaled at 45 minutes. /[id number] Breana Kuhn MD VLS/AQ / VLS / MODL /[id number] documented in this encounter Plan of Treatment Not on file documented as of this encounter Visit Diagnoses Not on filedocumented in this encounter
--- OUTSIDE RECORDS SUMMARY | 2025-02-23 12:35 | XMS_ITS | Encounter Summary ---
Author Organization [employer] ([place], [place], [place], [place]) Address [address] [place] [address] Care Team Providers Care Displayer Merchandise Name Role Phone Unavailable Primary Care Provider Unavailabl e Encounter Details Date Type Department Care Team (Late st Contact Info) Description 12/28/2019 Transcribed Document [facility] Family Medicine [facility] [place] [address] ProviderNuha MD [address] [place] [address] Social History Tobacco Use Types Packs/Day Years Used Date Smoking Tobacco: Never Assessed Comments Unknown Sex and Gender Information Value Date Recorded Sex Assigned at Not on file Legal Sex Female 2:42 PM CDT Gender Identity Not on file Sexual Orientation Not on file documented as of this encounter Miscellaneous Notes * Cerner Conversion Note - Nuha ProviderMD - 12/28/2019 2:52 PM CDT WO Inpatient Documentation Entered On: 12/28/2019 14:58 EDT Performed On: 12/28/2019 14:52 EDT by Norma Horton Rn-Enterostomal WO Admission Date : Admit Date 12/22/2019 06:[address] : Diagnosis (3) 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 Patient independently changed pouching system Saturday and all supplies were provided. Per patient, the system she applied Saturday remained intact without any evidence of leaking. Patient proceeded to return demonstrate pouch emptying, removal and application with very minimal assistance using a stencil, two piece red pouching system and paste. Initially post surgery, the pouching system applied had leaked causing some mild irritant contact dermatitis. At this time, no open areas, some redness but not from moisture as the pouch removed showed excellent even wear without any evidence of a leak. Reviewed daily living with an ileostomy. Patient with very liquid output, which patient states Dr. Decker recommended immodium. All questions and concerns answered. All supplies, order information and contact information at bedside. Will follow in the outpatient setting as indicated. Norma Horton Rn-Enterostomal - 12/28/2019 14:52 EDT Wound & Pressure Ulcer WO Wound Pressure Ulcer Documentation : No incision/wound/skin abnormality or pressure ulcer assessments reported. CN Ostomy Documentation : Ostomy: Ileostomy RUQ on 12/28/2019 14:00 by Norma Horton Rn-Enterostomal Diversion Present on Admission: No Ostomy Care Performed: By patient/family Ostomy Stoma Length, mm: 44 Ostomy Stoma Width, mm: 38 Stoma Shape: Oval Stoma Description: Loop, Moist, Red Peristomal Skin Description: Red Mucocutaneous Junction: Intact Ostomy Equipment: Pouch, drainable, Two piece system, Wafer Ostomy Wafer Type: Flat Ostomy Product Number: red Ostomy System Assessment: Well fitting Ostomy Activity: Assessed, Pouch, wafer changed Ostomy Pouch Change Next Due: [id number]:0 Ostomy Skin Cleansed With: Water Ostomy Treatment Response: Expected Ostomy Output, Gastrointestinal: 200 Norma Horton Rn-Enterostomal - 12/28/2019 14:52 EDT documented in this encounter Plan of Treatment Not on file documented as of this encounter Visit Diagnoses Not on filedocumented in this encounter
--- OUTSIDE RECORDS SUMMARY | 2025-02-23 12:35 | XMS_ITS | Encounter Summary ---
Author Organization [employer] ([place], [place], [place], [place]) Address [address] [place] [address] Care Team Providers Care Dinkey Operator Name Role Phone Unavailable Primary Care Provider Unavailabl e Encounter Details Date Type Department Care Team (Late st Contact Info) Description 12/22/2019 Transcribed Document [facility] [place] [facility] [address] ProviderNuha MD [address] [place] [address] Social History Tobacco Use Types [...] Nuha ProviderMD - 12/22/2019 8:09 AM CDT [facility] Main OR IntraOp Summary Primary Physician: BHUPENDRA MARISCAL MD-PRO Finalized Date/Time: 12/23/19 10:02:45 Pt. Name: SALIMA KRAMER/Sex: 1950 Female Med Rec #: [id number] Physician: BHUPENDRA MARISCAL MD-PRO Financial #: [id number] Pt. Type: I Room/Bed: [facility]/ Admit/Disch: 12/22/19 06:28:00 - Institution: [facility] IntraOp Case Attendance Entry 1 Entry 2 Entry 3 Case Attendee BHUPENDRA MARISCAL MD-PRO HADLEY, FRED P, MD-URO DUONG, KASEY BATISTA MD-ANS Role Performed Surgeon/Proceduralist, Surgeon/Proceduralist, Anesthesiologist of First Third Record Time In 12/22/19 07:40:00 12/22/19 07:40:00 12/22/19 07:40:00 Time Out 12/22/19 10:28:00 12/22/19 08:30:00 12/22/19 10:28:00 Procedure Colon Resection Low Cystoscopy Stent Colon Resection Low Anterior, Ileostomy Insertion Anterior, Ileostomy, Cystoscopy Stent Insertion Other Attendee Superficial Wound Closed By: Last Modified By: Eduardo Clayton, Eduardo Stevensno, Eduardo Stevenson, PABLITO 12/22/19 10:29:20 12/22/19 10:29:20 12/22/19 10:29:20 Entry 4 Entry 5 Entry 6 Case Attendee OKSANA CAREY APRN, GARCIA, KAREN A. Compton, Tracy R, Rn ERRAND RUNNER Role Performed ERRAND RUNNER/Nurse Clam Bed Laborer Hardwood Sawyer, First Stockfeed Miller, First Time In 12/22/19 07:40:00 12/22/19 07:40:00 12/22/19 07:40:00 Time Out 12/22/19 10:28:00 12/22/19 10:28:00 12/22/19 10:28:00 Procedure Colon Resection Low Colon Resection Low Colon Resection Low Anterior, Ileostomy, Anterior, Ileostomy, Anterior, Ileostomy, Cystoscopy Stent Cystoscopy Stent Cystoscopy Stent Insertion Insertion Insertion Other Attendee Superficial Wound Closed By: Last Modified By: Eduardo Clayton, Eduardo Stevenson, Eduardo Stevenson, PABLITO 12/22/19 10:29:20 12/22/19 10:29:20 12/22/19 10:29:20 Entry 7 Entry 8 Entry 9 Case Attendee Eduardo Clayton, JHON KAUR LORI J. Role Performed Stockfeed Miller, Second Scrub, First Scrub, Second Time In 12/22/19 07:40:00 12/22/19 07:40:00 12/22/19 07:40:00 Time Out 12/22/19 10:28:00 12/22/19 08:30:00 12/22/19 10:28:00 Procedure Colon Resection Low Cystoscopy Stent Colon Resection Low Anterior, Ileostomy, Insertion Anterior, Ileostomy Cystoscopy Stent Insertion Other Attendee Superficial Wound Closed By: Last Modified By: Eduardo Clayton, RN Eduardo Clayton, RN Eduardo Clayton, PABLITO 12/22/19 10:29:20 12/22/19 10:29:20 12/22/19 10:29:20 [facility] IntraOp Case Attendance Audit 12/22/19 10:29:20 Intelligence Officer: [id number] Modifier: [email or web address] <+> Time Out 1 <*> Procedure Colon Resection Low Anterior, Ileostomy 2 <*> Procedure Cystoscopy Stent Insertion 3 <+> Time Out 3 <*> Procedure Colon Resection Low Anterior, Ileostomy, Cystoscopy Stent Insertion 4 <+> Time Out 4 <*> Procedure Colon Resection Low Anterior, Ileostomy, Cystoscopy Stent Insertion 5 <+> Time Out 5 <*> Procedure Colon Resection Low Anterior, Ileostomy, Cystoscopy Stent Insertion 6 <+> Time Out 6 <*> Procedure Colon Resection Low Anterior, Ileostomy, Cystoscopy Stent Insertion 7 <+> Time Out 7 <*> Procedure Colon Resection Low Anterior, Ileostomy, Cystoscopy Stent Insertion 8 <*> Procedure Cystoscopy Stent Insertion 9 <+> Time Out 9 <*> Procedure Colon Resection Low Anterior, Ileostomy 12/22/19 09:50:14 Intelligence Officer: [id number] Modifier: [id number] <+> Time Out 2 <*> Procedure Cystoscopy Stent Insertion 8 <+> Time Out 8 <*> Procedure Cystoscopy Stent Insertion 12/22/19 08:08:13 Intelligence Officer: [id number] Modifier: [id number] <+> Time In 1 <*> Procedure Colon Resection Low Anterior, Ileostomy 2 <+> Time In 2 <*> Procedure Cystoscopy Stent Insertion 3 <+> Time In 3 <*> Procedure Colon Resection Low Anterior, Ileostomy, Cystoscopy Stent Insertion 4 <+> Time In 4 <*> Procedure Colon Resection Low Anterior, Ileostomy, Cystoscopy Stent Insertion 5 <+> Time In 5 <*> Procedure Colon Resection Low Anterior, Ileostomy, Cystoscopy Stent Insertion 6 <+> Time In 6 <*> Procedure Colon Resection Low Anterior, Ileostomy, Cystoscopy Stent Insertion 7 <+> Time In 7 <*> Procedure Colon Resection Low Anterior, Ileostomy, Cystoscopy Stent Insertion 8 <+> Time In 8 <*> Procedure Cystoscopy Stent Insertion 9 <+> Time In 9 <*> Procedure Colon Resection Low Anterior, Ileostomy [facility] IntraOp Case Times Entry 1 Patient In Room Time 12/22/19 07:40:00 Out Room Time 12/22/19 10:28:00 Anesthesia Start Time 12/22/19 07:40:00 Stop Time 12/22/19 10:28:00 Surgery / Procedure Times Start Time 12/22/19 08:09:00 Stop Time 12/22/19 10:20:00 Last Modified By: Eduardo Clayton RN 12/22/19 10:28:59 [facility] IntraOp Case Times Audit 12/22/19 10:28:59 Intelligence Officer: [id number] Modifier: [email or web address] <+> 1 Out Room Time <+> 1 Stop Time <+> 1 Stop Time 12/22/19 08:10:48 Intelligence Officer: [id number] Modifier: [id number] <+> 1 Start Time [facility] IntraOp Cautery Entry 1 ESU Identification Cautery Type Monopolar ESU ID Number [id number] ID Type Hospital Number Cautery Settings Cut Setting 30 Coag Setting 30 ESU Grounding Pad Ground Pad Type Adult Grounding Pad Site Right Buttock Grounding Pad Kim Alvarado Rn Applied By Grounding Pad Site Dry, Intact, Warm Skin Condition Before Cautery Grounding Pad Site Unchanged Skin Condition After Cautery Last Modified By: Kim Alvarado Rn 12/22/19 08:11:11 [facility] IntraOp Cautery Audit 12/22/19 08:11:11 Intelligence Officer: [id number] Modifier: [id number] <+> 1 Grounding Pad Site 12/22/19 07:25:33 Intelligence Officer: [id number] Modifier: [id number] <+> 1 ID Number [facility] IntraOp Communication Entry 1 Communication To Family/Significant other Communication By Kim Alvarado Rn Date and Time 12/22/19 08:14:00 Last Modified By: Kim Alvarado Rn 12/22/19 08:14:15 [facility] IntraOp Counts Verification Entry 1 Procedure Colon Resection Low Anterior, Ileostomy Count Info Count Type Sponge, Sharps, Instrument Counts Verification Baseline/pre-procedure Sequence Count Results Not Applicable Counts Performed By Count Performed By JAYA JUAREZ (Scrub) Count Performed By Kim Alvarado Rn (RN) Last Modified By: Kim Alvarado Rn 12/22/19 07:20:34 [facility] IntraOp Counts Final Entry 1 Procedure Colon Resection Low Anterior, Ileostomy Final Count Info Count Type Sponge, Sharps, Instrument, Miscellaneous Counts Verification Skin Closure/end of Sequence procedure Count Results Correct, surgeon notified Counts Performed By Count Performed By JAYA JUAREZ (Scrub) Count Performed By Eduardo Clayton RN (RN) Last Modified By: Kim Alvarado Rn 12/22/19 09:49:41 [facility] IntraOp Cultures and Spec Summary Entry 1 Cultrures and Specimens Specimen Ordered: Yes Test(s) Culture(s)/Microbiology Requested/Final Disposition Last Modified By: Kim Alvarado Rn 12/22/19 09:19:57 General Comments: A. PELVIC ABSCESS [facility] IntraOp Delays Entry 1 Delay Reason Ancillary department delay Duration 10 Minute(s) Comment TAP BLOCK Last Modified By: Kim Alvarado Rn 12/22/19 08:12:24 [facility] IntraOp Departure from OR Entry 1 Integumentary Assessment Integumentary WDL Assessment WDL Transfer/Handoff Transfer to PACU Phase I Handoff Method Phone call Post-op Transport Stretcher/Gurney Via Patient Transport OKSANA CAREY APRN, Accompanied by WILFRED ROLON KAREN A. Last Modified By: Kim Alvarado Rn 12/22/19 08:14:48 [facility] IntraOp Dressing and Packing Entry 1 Type Dressing Location Abdomen Applied By MARLO HARDIN Other Comments COVADERM DERMABOND Last Modified By: Kim Alvarado Rn 12/22/19 09:28:26 [facility] IntraOp Fire Risk Assessment Entry 1 Fire Info Surgical Site or 0- No Incision Above the Xyphoid Open O2 Source 0- No (Mask or Cannula) Available Ignition 1- Yes (ESU, Laser, Light Source) Fire Risk 1 Assessment Score Fire Score Fire Risk Yes Assessment Complete Fire Risk Kim Alvarado Rn Assessment Verified By Fire Risk 12/22/19 08:08:00 Assessment Verified Date/Time Fire Risk Standard Fire Yes Safety Precautions Followed Last Modified By: Kim Alvarado Rn 12/22/19 08:08:49 [facility] IntraOp General Case Bullet Assembly Press Setter Operator 1 Case Information OR OR 06 [facility] Case Level 1 Room Verified Yes Wound Class II - Clean-Contaminated Specialty SN General Anesthesia Type General ASA Class 3 Diagnosis Preop Diagnosis COLOVAGINAL FISTULA Postop Same As Preop No Postop Diagnosis SEE MD NOTES Last Modified By: Kim Alvarado Rn 12/22/19 08:17:55 [facility] IntraOp General Case Data Audit 12/22/19 08:17:55 Intelligence Officer: [id number] Modifier: [id number] <+> 1 ASA Class <+> 1 Postop Same As Preop <+> 1 Preop Diagnosis <+> 1 Postop Diagnosis <+> 1 Room Verified 12/22/19 07:24:32 Intelligence Officer: [id number] Modifier: [id number] <+> 1 Specialty <+> 1 Anesthesia Type [facility] IntraOp Intraoperative Assessment Entry 1 Handoff Method Bedside/Face to face, Online nursing summary Valid History / Yes Physical in Chart Preoperative Yes Checklist Reviewed/Evaluated Allergies Reviewed Yes Patient is Latex No Sensitive Isolation Not applicable Precautions Noted Level of WDL Consciousness (WDL = Alert, Oriented to Person, Place, and Time) Skin Assessment Yes Verified Present Upon IVs Arrival to OR Last Modified By: Kim Alvarado Rn 12/22/19 07:24:46 [facility] IntraOp Intraoperative Equipment Entry 1 Type Equipment Equipment Equipment Michaela Suction System ID Number [id number] Setting ON Intraop Monitoring Electrocardiogram Three lead placement (ECG) Electrode Placement Blood Pressure Non-Invasive BP Device Source Antiembolic Devices Antiembolic Devices Sequential compression device, knee high Antiembolic Device Bilateral Location Antiembolic Device [id number] ID Number Antiembolic Device ON Setting Scopes Photo/Video Documentation Photo No Video No Intraop Equipment Sequential compression Comment devices on and in operation prior to induction of anesthesia. Last Modified By: Kim Alvarado Rn 12/22/19 07:25:21 [facility] IntraOp Medication Admin Entry 1 Medication/Irrigant GYPSY IRR NACL 0.9PCT 1L POUR --[id number] Time Administered 12/22/19 08:09:00 Route of IRRIGATION Administration Dose Administered By BHUPENDRA MARISCAL MD-PRO Procedure Irrigation Last Modified By: Kim Alvarado Rn 12/22/19 08:18:26 [facility] IntraOp Patient Positioning Entry 1 Procedure Colon Resection Low Anterior, Ileostomy, Cystoscopy Stent Insertion Body Position Lithotomy Left Arm Position Tucked and padded at side Right Arm Position Tucked and padded at side Left Leg Position Secured in Leg Mahoney Right Leg Position Secured in Leg Mahoney Feet Uncrossed Yes Pressure Points Yes Checked Positioning Devices Head Rest, Pad, Elbow, Stirrups/Leg Mahoney, Cysto, Arm Board, Pad, Arm, Safety Strap, Arm(s) Positioned By BHUPENDRA MARISCAL MD-PRO, Kim Alvarado, Rn, OKSANA CAREY APRN, GONZALES, MARLO HARDIN, Eduardo Clayton RN Position Verified Positioning Yes Verified by Anesthesia Positioning Yes Verified by Surgeon Last Modified By: Kim Alvarado Rn 12/22/19 07:37:34 [facility] IntraOp Sign In Entry 1 Patient, Site, Yes Procedure Identified Surgical Consent Yes Confirmed Relevant Surgical Yes Documents Available Surgical Site N/A Marked by person performing procedure Anesthesia Machine Yes Check Completed Medication Checks Yes Completed Allergies Yes Airway Difficult Yes Airway/Aspiration Risk Difficult Yes Airway/Aspiration Intervention Equipment Available Blood Loss Risk Yes Blood Loss Yes Intervention Equipment Prepared and Ready Blood Identifiers Not applicable Verified Per Policy Hypothermia Risk Yes Warming Measures Yes Taken Last Modified By: Kim Alvarado Rn 12/22/19 07:25:45 [facility] IntraOp Sign Out Entry 1 RN Confirmation Surgical Yes Procedure(s) Identified Instrument, Sponge Yes and Sharps Counts Correct/Documented Equipment Problems N/A Documented Specimen Labeled Yes Correctly Urinary Catheter N/A Documented in IView Decker Patient Yes Recovery Concerns Reviewed with Anesthesia Provider, Surgeon and RN Decker Patient Yes Management Concerns Reviewed with Anesthesia Provider, Surgeon and RN Safety Checklist Yes Elements Complete? RN Sign Out Eduardo Clayton RN Signature RN Sign Out 12/22/19 10:29:00 Signature Date/Time Plan of Care Outcome - [...] related to extraneous objects Last Modified By: Eduardo Clayton RN 12/22/19 10:29:18 [facility] IntraOp Sign Out Audit 12/22/19 10:29:18 Intelligence Officer: [id number] Modifier: [email or web address] <*> RN Sign Out Signature Kim Alvarado Rn 1 <+> RN Sign Out Signature Date/Time [facility] IntraOp Skin Prep Entry 1 Entry 2 Procedure Cystoscopy Stent Colon Resection Low Insertion Anterior, Ileostomy Prescribed N/A Yes Pre-Surgical Prep Completed Prep Area genitalia ABDOMEN Intraop Prep Integumentary WDL WDL Assessment WDL WD Patient Exceptions Patients Normal Integumentary Variance(s) Integumentary Assessment Comment Prep Agents Betadine spray Chloraprep Prep by Kim Alvarado Rn Compton, Tracy R, Rn Skin Prep Comment Hair Removal Methods No hair removal No hair removal performed performed Hair Removal Site Hair Removal By Last Modified By: Kim Alvarado Rn Compton, Tracy R, Rn 12/22/19 07:27:13 12/22/19 07:27:13 [facility] IntraOp Skin Prep Audit 12/22/19 07:27:13 Intelligence Officer: [id number] Modifier: [id number] <+> 1 Prep Agents <+> 1 Methods <+> 1 Prep by <+> 1 Integumentary Assessment [facility] <+> 2 Prep Area <+> 2 Prep Agents <+> 2 Methods <+> 2 Procedure <+> 2 Prescribed Pre-Surgical Prep Completed <+> 2 Prep by <+> [address] [facility] IntraOp Surgical Procedures Entry 1 Entry 2 Entry 3 Procedure Colon Resection Low Ileostomy Cystoscopy Stent Anterior Insertion Modifiers Additional (LOW ANTERIOR RESECTION Procedure WITH LOOP ILEOSTOMY, Description CYSTOSCOPY WITH JERILYN URETERAL CATHETER INSERTION) Primary Procedure Yes No No Primary Surgeon BHUPENDRA MARISCAL MD-PRO BHUPENDRA MARISCAL MD-PRO TARIQ NAPIER MD-URO Start 12/22/19 08:09:00 12/22/19 08:09:00 12/22/19 08:09:00 Stop 12/22/19 10:20:00 12/22/19 10:20:00 12/22/19 10:20:00 Physician States Cecum Reached Anesthesia Type General General General Specialty SN General SN General SN Urology Wound Class II - Clean-Contaminated II - Clean-Contaminated II - Clean-Contaminated Last Modified By: PantanoEduardo RN Pantano, Scott, RN Pantano, Scott, RN 12/22/19 10:29:05 12/22/19 10:29:05 12/22/19 10:29:05 [facility] IntraOp Surgical Procedures Audit 12/22/19 10:29:05 Intelligence Officer: [id number] Modifier: [email or web address] <+> 1 Stop <+> 2 Stop <+> 3 Stop [facility] IntraOp Temp Regulation Devices Entry 1 Temp Regulation Temperature Warm blankets, Forced Regulation Device Air Warming device Temperature 24893 Regulation Device Serial/Unit Number Temperature Upper body Regulation Site Temperature Device ON Setting Temperature OKSANA CAREY APRN, Regulation Device ERRAND RUNNER Applied by Temperature monitored per Regulation Comment anesthesia, aniyah best available Last Modified By: Kim Alvarado Rn 12/22/19 07:26:16 [facility] IntraOP Time Out Entry 1 Procedure to be Colon Resection Low Performed Anterior, Ileostomy, Cystoscopy Stent Insertion Time Out Time Out Pause Time 12/22/19 08:08:00 All activity Yes suspended (unless life threatening emergency) Team Verbally Correct patient Confirms Information identity, Correct side and site are marked, Consent form is present and accurate, Agreement on the procedure to be done, Correct patient position, Confirm antibiotics have been administered, Confirm the skin prep has dried, Performed in location of procedure after prepped/draped, Reconcile problems if responses among team members differ Antibiotic Yes Prophylaxis Administered Or In Progress Within the Last 60 Minutes Beta Kurt N/A Administered Venous N/A Thromboembolism Prophylaxis Required Anticipated Critical Events Surgeon None expected Anesthesia Provider None expected Nursing Assures Sterility of instruments, Equipment concerns or issues Essential Imaging N/A Labeled and Displayed Last Modified By: Kim Alvarado Rn 12/22/19 08:09:37 Case Comments <None> Finalized By: ERUM ALDANA Document Signatures Signed By: Eduardo Clayton RN 12/22/19 10:29 ERUM ALDANA 12/23/19 10:02 Unfinalized History Date/Time Username Reason for Unfinalizing Freetext Reason for Unfinalizing 12/23/19 09:55 [email or web address] Correct Billing Electronically signed by [facility] Conversion Anthropological Linguist Cerner at 11/05/2022 6:01 PM CDT documented in this encounter Plan of Treatment Not on file documented as of this encounter Visit Diagnoses Not on filedocumented in this encounter
--- OUTSIDE RECORDS SUMMARY | 2025-02-23 12:35 | XMS_ITS | Encounter Summary ---
Author Organization [employer] ([place], [place], [place], [place]) Address [address] [place] [address] Care Team Providers Care Therapeutic Recreation Specialist Name Role Phone Unavailable Primary Care Provider Unavailabl e Encounter Details Date Type Department Care Team (Late st Contact Info) Description 12/22/2019 Transcribed Document [facility] [place] [facility] [place] [address] Nuha Daily MD [address] [place] [address] Social History Tobacco Use Types Packs/Day Years Used Date Smoking Tobacco: Never Assessed Comments Unknown Sex and Gender Information Value Date Recorded Sex Assigned at Not on file Legal Sex Female 2:42 PM CDT Gender Identity Not on file Sexual Orientation Not on file documented as of this encounter Miscellaneous Notes * [employer]ner Conversion Note - Nuha ProviderMD - 12/22/2019 8:35 AM CDT DATE OF PROCEDURE: 12/22/2019 SURGEON: Eder Bernard MD PREOPERATIVE DIAGNOSIS: Colovesical fistula. POSTOPERATIVE DIAGNOSIS: Colovesical fistula. PROCEDURE PERFORMED: Cystoscopy, passage of left ureteral catheter. DESCRIPTION OF PROCEDURE: After the induction of general anesthesia, the patient was prepped and draped in dorsal lithotomy position. A 21 endoscope sheath was inserted into the bladder. Marked edema was seen on the left lateral wall of the bladder, obscuring the left ureteral orifice. There was no evidence of bladder tumor. Significant hematuria began with instrumentation. Eventually, the left ureteral orifice was identified and cannulated with a guidewire. A #5 open-ended ureteral catheter was passed up the ureter to the level of renal pelvis. Attempt was made to visualize the right ureteral orifice. Due to bleeding and inflammation, this could not be seen. The cystoscope was removed. A #16 Coleman catheter was inserted. The ureteral catheter was secured to the Coleman catheter with zero silk suture. /[id number] Eder Bernard MD [facility]ACE[facility] / [facility] / MODL /[id number] documented in this encounter Plan of Treatment Not on file documented as of this encounter Visit Diagnoses Not on filedocumented in this encounter
--- OUTSIDE RECORDS SUMMARY | 2025-02-23 12:35 | XMS_ITS | Encounter Summary ---
Author Organization [employer] ([place], [place], [place], [place]) Address [address] [place] [address] Care Team Providers Care Food Critic Name Role Phone Unavailable Primary Care Provider Unavailabl e Encounter Details Date Type Department Care Team (Late st Contact Info) Description 05/26/2020 Transcribed Document [facility] [place] Medicine [address] [place] [address] ProviderNuha MD [address] [place] [address] Social History Tobacco Use Types Packs/Day Years Used Date Smoking Tobacco: Never Assessed Comments Unknown Sex and Gender Information Value Date Recorded Sex Assigned at Not on file Legal Sex Female 2:42 PM CDT Gender Identity Not on file Sexual Orientation Not on file documented as of this encounter Miscellaneous Notes * [employer]ner Conversion Note - Historical ProviderMD - 05/26/2020 1:24 PM BECK TENDER Event Note Entered On: 05/26/2020 13:25 EST Performed On: 05/26/2020 13:24 EST by Aparna Le RN Event Note Event Date/Time : 05/26/2020 12:30 EST Description of Event : Pt potassium 7.5 on istat, 7.4 on cmp. Ekg obtained. Dr. Barreto notified. Pt does not feel well, dozing, feels nauseous and weak. Aparna Le RN - 05/26/2020 13:24 EST documented in this encounter Plan of Treatment Not on file documented as of this encounter Visit Diagnoses Not on filedocumented in this encounter
--- OUTSIDE RECORDS SUMMARY | 2025-02-23 12:35 | XMS_ITS | Encounter Summary ---
Author Organization [employer] ([place], [place], [place], [place]) Address [address] [place] [address] Care Team Providers Care Press Reader Name Role Phone Unavailable Primary Care Provider Unavailabl e Encounter Details Date Type Department Care Team (Late st Contact Info) Description 05/26/2020 Transcribed Document [facility] [place] [address] [place] [address] ProviderNuha MD [address] [place] [address] Social History Tobacco Use Types Packs/Day Years Used Date Smoking Tobacco: Never Assessed Comments Unknown Sex and Gender Information Value Date Recorded Sex Assigned at Not on file Legal Sex Female 2:42 PM CDT Gender Identity Not on file Sexual Orientation Not on file documented as of this encounter Miscellaneous Notes * Cerner Conversion Note - Historical ProviderMD - 05/26/2020 1:28 PM [facility] ED Triage Entered On: 05/26/2020 13:34 EST Performed On: 05/26/2020 13:32 EST by ELANA ALEXANDRA SUPERVISOR NUT PROCESSING Triage Across the Room Chief Complaint : pt had abn labs today when she was having her screening for SX on saturday, K is over 7, Triage Date/Time : 05/26/2020 13:32 EST ELANA ALEXANDRA RN - 05/26/2020 13:32 EST DCP GENERIC CODE Tracking Acuity : 2 - Emergent Tracking Group : [facility] ELANA ALEXANDRA RN - 05/26/2020 13:32 EST Mode of Arrival : Ambulatory Transported to ED by : Private vehicle To Room Via : Wheelchair Accompanied By : Spouse ED Vital Signs : Document Height & Weight : Document ED Allergies : Document ED Reason for Visit : Document Tetanus Immunization : Unknown Tax Assessor Needed : No ELANA ALEXANDRA RN - 05/26/2020 13:32 EST Infectious Disease History Has the patient [...] Measles, MRSA, Mumps Tuberculosis Symptoms : None ELANA ALEXANDRA RN - 05/26/2020 13:32 EST Vital Signs ED Temperature Source : Oral Temperature Mode : Fahrenheit Temperature, Fahrenheit : 97.6 Deg F ED Pain : Yes Clinical Temperature, C : 36.4 Deg C Oxygen Therapy Mode : Room air Peripheral Pulse Rate : 61 bpm Respiratory Rate : 18 Breaths/Min Systolic Blood Pressure : 103 mmHg Diastolic Blood Pressure : 57 mmHg (LOW) Oxygen Saturation : 97 % ELANA ALEXANDRA RN - 05/26/2020 13:32 EST Allergy (As Of: 05/26/2020 13:34:49 EST) Allergies (Active) meperidine Estimated Onset Date: Unspecified ; Reactions: Hypotension ; Created By: ANTONIO MCDONALD RN; Reaction Status: Active ; Category: Drug ; Substance: meperidine ; Type: Allergy ; Updated By: ANTONIO MCDONALD RN; Reviewed Date: 05/26/2020 13:33 EST sulfa drugs Estimated Onset Date: Unspecified ; Reactions: Hives ; Created By: ANTONIO MCDONALD RN; Reaction Status: Active ; Category: Drug ; Substance: sulfa drugs ; Type: Allergy ; Updated By: ANTONIO MCDONALD RN; Reviewed Date: 05/26/2020 13:33 EST Diagnosis Control ED (As Of: 05/26/2020 13:34:49 EST) Problems(Active) Allergic rhinitis (SNOMED CT :786037920 ) Name of Problem: Allergic rhinitis ; Recorder: ANTONIO MCDONALD RN; Confirmation: Confirmed ; Classification: Medical ; Code: [id number] ; Contributor System: SplitSecnd ; Last Updated: 12/18/2019 11:44 EDT ; Life Cycle Date: 12/18/2019 ; Life Cycle Status: Active ; Vocabulary: SNOMED CT Asthma (SNOMED CT :571536379 ) Name of Problem: Asthma ; Recorder: ANTONIO MCDONALD RN; Confirmation: Confirmed ; Classification: Medical ; Code: 792547603 ; Contributor System: [email or web address] ; Last Updated: 12/18/2019 11:48 EDT ; Life Cycle Date: 12/18/2019 ; Life Cycle Status: Active ; Vocabulary: SNOMED CT Back pain (SNOMED CT :8587382607 ) Name of Problem: Back pain ; Recorder: ANTONIO MCDONALD RN; Confirmation: Confirmed ; Classification: Medical ; Code: [id number] ; Contributor System: PowerChart ; Last Updated: 12/18/2019 11:50 EDT ; Life Cycle Date: 12/18/2019 ; Life Cycle Status: Active ; Vocabulary: SNOMED CT Back problem//multiple fractures (SNOMED CT :481593807 ) Name of Problem: Back problem//multiple fractures ; Recorder: ANTONIO MCDONALD RN; Confirmation: Confirmed ; Classification: Medical ; Code: [id number] ; Contributor System: PowerChart ; Last Updated: 12/18/2019 12:04 EDT ; Life Cycle Date: 12/18/2019 ; Life Cycle Status: Active ; Vocabulary: SNOMED CT BBB (bundle branch block)//right (SNOMED CT :27785816 ) Name of Problem: BBB (bundle branch block)//right ; Recorder: ANTONIO MCDONALD RN; Confirmation: Confirmed ; Classification: Medical ; Code: 77229225 ; Contributor System: PowerChart ; Last Updated: 12/18/2019 11:47 EDT ; Life Cycle Date: 12/18/2019 ; Life Cycle Status: Active ; Vocabulary: SNOMED CT Cataract//extraction (SNOMED CT :853398378 ) Name of Problem: Cataract//extraction ; Recorder: ANTONIO MCDONALD RN; Confirmation: Confirmed ; Classification: Medical ; Code: 113836554 ; Contributor System: PowerChart ; Last Updated: 12/18/2019 11:44 EDT ; Life Cycle Date: 12/18/2019 ; Life Cycle Status: Active ; Vocabulary: SNOMED CT Chronic diarrhea (SNOMED CT :412305928 ) Name of Problem: Chronic diarrhea ; Recorder: ANTONIO MCDONALD RN; Confirmation: Confirmed ; Classification: Medical ; Code: 253359480 ; Contributor System: PowerChart ; Last Updated: 12/18/2019 11:48 EDT ; Life Cycle Date: 12/18/2019 ; Life Cycle Status: Active ; Vocabulary: SNOMED CT Dental disorder//bottom teeth extraction//stitches intact (SNOMED CT :5004310974 ) Name of Problem: Dental disorder//bottom teeth extraction//stitches intact ; Recorder: ANTONIO MCDONALD RN; Confirmation: Confirmed ; Classification: Medical ; Code: [id number] ; Contributor System: PowerChart ; Last Updated: 12/18/2019 11:46 EDT ; Life Cycle Date: 12/18/2019 ; Life Cycle Status: Active ; Vocabulary: SNOMED CT Difficulty walking//walker (SNOMED CT :0083973447 ) Name of Problem: Difficulty walking//walker ; Recorder: ANTONIO MCDONALD RN; Confirmation: Confirmed ; Classification: Medical ; Code: 1021044317 ; Contributor System: PowerChart ; Last Updated: 12/18/2019 11:52 EDT ; Life Cycle Date: 12/18/2019 ; Life Cycle Status: Active ; Vocabulary: SNOMED CT Dizziness (SNOMED CT :2260220656 ) Name of Problem: Dizziness ; Recorder: ANTONIO MCDONALD RN; Confirmation: Confirmed ; Classification: Medical ; Code: 1741212712 ; Contributor System: [email or web address] ; Last Updated: 12/18/2019 11:47 EDT ; Life Cycle Date: 12/18/2019 ; Life Cycle Status: Active ; Vocabulary: SNOMED CT Fistula//colon//bladder//[place] (SNOMED CT :5058865534 ) Name of Problem: Fistula//colon//bladder//v[place] ; Recorder: ANTONIO MCDONALD RN; Confirmation: Confirmed ; Classification: Medical ; Code: 7252936835 ; Contributor System: PowerChart ; Last Updated: 12/18/2019 11:50 EDT ; Life Cycle Date: 12/18/2019 ; Life Cycle Status: Active ; Vocabulary: SNOMED CT GERD - Gastro-esophageal reflux disease (SNOMED CT :4044696304 ) Name of Problem: GERD - Gastro-esophageal reflux disease ; Recorder: ANTONIO MCDONALD RN; Confirmation: Confirmed ; Classification: Medical ; Code: 2398608711 ; Contributor System: PowerChart ; Last Updated: 12/18/2019 11:49 EDT ; Life Cycle Date: 12/18/2019 ; Life Cycle Status: Active ; Vocabulary: SNOMED CT History of obstructive sleep apnea (IMO :23727173 ) Name of Problem: History of obstructive sleep apnea ; Recorder: SYSTEM, SYSTEM; Confirmation: Confirmed ; Classification: Medical ; Code: 94755556 ; Last Updated: 12/18/2019 12:22 EDT ; Life Cycle Date: 12/18/2019 ; Life Cycle Status: Active ; Vocabulary: IMO Hyperkalemia (SNOMED CT :01545338 ) Name of Problem: Hyperkalemia ; Recorder: Aparna Le RN; Confirmation: Confirmed ; Classification: Medical ; Code: 28737942 ; Contributor System: PowerChart ; Last Updated: 05/26/2020 12:26 EST ; Life Cycle Date: 05/26/2020 ; Life Cycle Status: Active ; Vocabulary: SNOMED CT Hypotension (SNOMED CT :511370897 ) Name of Problem: Hypotension ; Recorder: ANTONIO MCDONALD RN; Confirmation: Confirmed ; Classification: Medical ; Code: 091638490 ; Contributor System: PowerChart ; Last Updated: 12/18/2019 11:48 EDT ; Life Cycle Date: 12/18/2019 ; Life Cycle Status: Active ; Vocabulary: SNOMED CT 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 (SNOMED CT :8613366158 ) Name of Problem: 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 ; Recorder: Romana Arango RN; Confirmation: Confirmed ; Classification: Nursing ; Code: 2359792764 ; Contributor System: PowerChart ; Last Updated: 12/25/2019 13:49 EDT ; Life Cycle Date: 12/25/2019 ; Life Cycle Status: Active ; Vocabulary: SNOMED CT Multiple myeloma (SNOMED CT :247147042 ) Name of Problem: Multiple myeloma ; Recorder: ANTONIO MCDONALD RN; Confirmation: Confirmed ; Classification: Medical ; Code: 616307375 ; Contributor System: PowerChart ; Last Updated: 12/18/2019 11:52 EDT ; Life Cycle Date: 12/18/2019 ; Life Cycle Status: Active ; Vocabulary: SNOMED CT Restless legs syndrome (SNOMED CT :83432808 ) Name of Problem: Restless legs syndrome ; Recorder: ANTONIO MCDONALD RN; Confirmation: Confirmed ; Classification: Medical ; Code: 57792535 ; Contributor System: PowerChart ; Last Updated: 12/18/2019 11:50 EDT ; Life Cycle Date: 12/18/2019 ; Life Cycle Status: Active ; Vocabulary: SNOMED CT Ribs, multiple fractures (SNOMED CT :7145717 ) Name of Problem: Ribs, multiple fractures ; Recorder: ANTONIO MCDONALD RN; Confirmation: Confirmed ; Classification: Medical ; Code: 7045611 ; Contributor System: PowerChart ; Last Updated: 12/18/2019 12:03 EDT ; Life Cycle Date: 12/18/2019 ; Life Cycle Status: Active ; Vocabulary: SNOMED CT Sinusitis (SNOMED CT :22940221 ) Name of Problem: Sinusitis ; Recorder: ANTONIO MCDONALD RN; Confirmation: Confirmed ; Classification: Medical ; Code: 98612800 ; Contributor System: PowerChart ; Last Updated: 12/18/2019 11:44 EDT ; Life Cycle Date: 12/18/2019 ; Life Cycle Status: Active ; Vocabulary: SNOMED CT Skin cancer (SNOMED CT :7015782543 ) Name of Problem: Skin cancer ; Recorder: ANTONIO MCDONALD RN; Confirmation: Confirmed ; Classification: Medical ; Code: 6401304383 ; Contributor System: PowerChart ; Last Updated: 12/18/2019 12:02 EDT ; Life Cycle Date: 12/18/2019 ; Life Cycle Status: Active ; Vocabulary: SNOMED CT Sleep apnea//no machine (SNOMED CT :451523063 ) Name of Problem: Sleep apnea//no machine ; Recorder: ANTONIO MCDONALD RN; Confirmation: Confirmed ; Classification: Medical ; Code: 548970726 ; Contributor System: PowerChart ; Last Updated: 12/18/2019 11:48 EDT ; Life Cycle Date: 12/18/2019 ; Life Cycle Status: Active ; Vocabulary: SNOMED CT Urinary tract infection/jul 2018 (SNOMED CT :751830550 ) Name of Problem: Urinary tract infection/jul 2018 ; Recorder: ANTONIO MCDONALD RN; Confirmation: Confirmed ; Classification: Medical ; Code: 482933727 ; Contributor System: SplitSecnd ; Last Updated: 12/18/2019 11:50 EDT ; Life Cycle Date: 12/18/2019 ; Life Cycle Status: Active ; Vocabulary: SNOMED CT Diagnoses(Active) Abnormal diagnostic test Date: 05/26/2020 ; Diagnosis Type: Reason For Visit ; Confirmation: Complaint of ; Clinical Dx: Abnormal diagnostic test ; Classification: Medical ; Clinical Service: Emergency medicine ; Code: PNED ; Probability: 0 ; Diagnosis Code: [id number] ED Height and Weight Height Source : Stated Height Entry Format : [place] Height, Feet : 5 ft(Converted to: 152 cm, 60 Inch) Height, Inches : 3 Inch(Converted to: 0 ft 3 Inch, 7.62 cm) Clinical Height : 160.02 cm Weight Source, ED : Critical estimated dosing weight Weight Entry Format : [place] Weight, Pounds : 162 lb Clinical Dosing Weight : 73.64 kg Body Surface Area (BSA) : 1.77 m2 Body Mass Index : 28.8 kg/m2 (HI) [place] Body Weight (IBW) : 52.02 kg ELANA ALEXANDRA RN - 05/26/2020 13:32 EST Pain Assessment Pain Assessment : Initial assessment Pain Scale Used : 0-10 Scale ELANA ALEXANDRA RN - 05/26/2020 13:32 EST Pain Scale Intensity : 2 ELANA ALEXANDRA RN - 05/26/2020 13:32 EST Image 4 - Images currently included in the form version of this document have not been included in the text rendition version of the form. documented in this encounter Plan of Treatment Not on file documented as of this encounter Visit Diagnoses Not on filedocumented in this encounter
--- OUTSIDE RECORDS SUMMARY | 2025-02-23 12:35 | XMS_ITS | Encounter Summary ---
Author Organization [employer] ([place], [place], [place], [place]) Address [address] [place] [address] Care Team Providers Care Blueprint Cutter Name Role Phone Unavailable Primary Care Provider Unavailabl e Encounter Details Date Type Department Care Team (Late st Contact Info) Description 12/26/2019 Transcribed Document [facility] [place] [address] [place] [address] ProviderNuha MD [address] [place] [address] Social History Tobacco Use Types Packs/Day Years Used Date Smoking Tobacco: Never Assessed Comments Unknown Sex and Gender Information Value Date Recorded Sex Assigned at Not on file Legal Sex Female 2:42 PM CDT Gender Identity Not on file Sexual Orientation Not on file documented as of this encounter Miscellaneous Notes * Cerner Conversion Note - Historical ProviderMD - 12/26/2019 5:00 AM CDT Chart Check - Review Order Profile Entered On: 12/26/2019 3:27 EDT Performed On: 12/26/2019 5:00 EDT by JOHANNY HAMPTON RN Chart Check Powerplans Initiated/Discontinued as Appropriate : Yes JOHANNY HAMPTON RN - 12/26/2019 3:27 EDT documented in this encounter Plan of Treatment Not on file documented as of this encounter Visit Diagnoses Not on filedocumented in this encounter
--- OUTSIDE RECORDS SUMMARY | 2025-02-23 12:35 | XMS_ITS | Encounter Summary ---
Author Organization [employer] ([place], [place], [place], [place]) Address [address] [place] [address] Care Team Providers Care Print Buyer Name Role Phone Unavailable Primary Care Provider Unavailabl e Encounter Details Date Type Department Care Team (Late st Contact Info) Description 12/22/2019 Transcribed Document [facility] [place] [address] [place] [address] ProviderNuha MD [address] [place] [address] Social History Tobacco Use Types [...] Nuha ProviderMD - 12/22/2019 8:09 AM CDT [facility] Main OR Preop Summary Primary Physician: BHUPENDRA MARISCAL MD-PRO Finalized Date/Time: 12/22/19 08:21:55 Pt. Name: NATE KRMAER/Sex: 1950 Female Med Rec #: [id number] Physician: BHUPENDRA MARISCAL MD-PRO Financial #: [id number] Pt. Type: I Room/Bed: ASA/1 Admit/Disch: 12/22/19 06:28:00 - Institution: [facility] PreOp Case Times Entry 1 In Preop 12/22/19 06:04:00 Ready for Holding n/a Room Patient Ready for 12/22/19 07:35:00 Surgery Patient Out of Preop 12/22/19 07:38:00 Patient Out of n/a Holding Room Last Modified By: RADHA HOUSTON RN 12/22/19 08:21:49 [facility] PreOp Case Times Audit 12/22/19 08:21:49 Recyclable Materials Distributor: MEREDITH Modifier: JEANETTEANDRA <+> 1 Patient Out of Preop Finalized By: RADHA HOUSTON V. RN Document Signatures Signed By: RADHA HOUSTON RN 12/22/19 08:21 Electronically signed by [facility] Conversion Medical Records Tech Cerner at 11/05/2022 6:09 PM CDT documented in this encounter Plan of Treatment Not on file documented as of this encounter Visit Diagnoses Not on filedocumented in this encounter
--- OUTSIDE RECORDS SUMMARY | 2025-02-23 12:35 | XMS_ITS | Encounter Summary ---
Author Organization [employer] ([place], [place], [place], [place]) Address [address] [place] [address] Care Team Providers Care Bridal Service Sales And Management Name Role Phone Unavailable Primary Care Provider Unavailabl e Encounter Details Date Type Department Care Team (Late st Contact Info) Description 12/18/2019 Transcribed Document [facility] [place] [address] [place] [address] ProviderNuha MD [address] [place] [address] Social History Tobacco Use Types Packs/Day Years Used Date Smoking Tobacco: Never Assessed Comments Unknown Sex and Gender Information Value Date Recorded Sex Assigned at Not on file Legal Sex Female 2:42 PM CDT Gender Identity Not on file Sexual Orientation Not on file documented as of this encounter Miscellaneous Notes * Cerner Conversion Note - Historical ProviderMD - 12/18/2019 12:20 PM CDT PAT Adult Entered On: 12/18/2019 12:22 EDT Performed On: 12/18/2019 12:20 EDT by ANTONIO MCDONALD RN Height and Weight, Clinical Dosing Height Source : Measured Height Entry Format : [place] Height, Feet : 5 ft(Converted to: 152 cm, 60 Inch) Height, Inches : 2.5 Inch(Converted to: 0 ft 3 Inch, 6.35 cm) Clinical Height : 158.75 cm Weight Source : Standing scale Weight Entry Format : [place] Clinical Dosing Weight : 66.82 kg Weight, Pounds : 147 lb Body Surface Area (BSA) : 1.69 m2 Body Mass Index : 26.5 kg/m2 (HI) [place] Body Weight : 51 kg ANTONIO MCDONALD RN - 12/18/2019 12:20 EDT Health Histories Smoking Status : Never (less than 100 in lifetime; none in last 30 days) Smokeless Tobacco Status : Never ANTONIO MCDONALD RN - 12/18/2019 12:37 EDT Social History (As Of: 12/18/2019 12:41:26 EDT) Tobacco: Never (less than 100 in lifetime) Smoking Status. Never Smokeless Tobacco Status. (Last Updated: 12/18/2019 12:01:31 EDT by ANTONIO MCDONALD, RN) Alcohol: Alcohol Use History No. (Last Updated: 12/18/2019 12:01:37 EDT by ANTONIO MCDONALD, PABLITO) Substance Abuse: Drug Use Hx: No. Use in Last 12 Months: No. (Last Updated: 12/18/2019 12:01:43 EDT by ANTONIO MCDONALD RN) Home/Environment: Lives with Spouse. Home equipment: Respiratory treatments, Walker/Cane. (Last Updated: 12/18/2019 12:02:00 EDT by ANTONIO MCDONALD RN) Infectious Disease History Has the patient ever been tested for COVID-19? : Yes, Patient stated results pending Date of COVID-19 Test : 12/18/19 COVID19 Screening : No Experiencing Infectious Disease Symptoms : No symptoms Physical contact outside [place] in the last 30 days : No Infectious Disease Symptoms Score : 0 Infectious Disease History : Chicken pox/Shingles, Measles, MRSA, Mumps Tuberculosis Symptoms : None ANTONIO MCDONALD RN - 12/18/2019 12:37 EDT Anesthesia/Transfusion History Family History of Anesthesia Reaction : Prior transfusion without reaction Blood Transfusion Acceptable to Patient : Yes Transfusion History : Prior anesthesia without reaction Family History of Anesthesia Reaction : None ANTONIO MCDONALD RN - 12/18/2019 12:20 EDT Functional Assessment Functional ADL Evaluation Index EBN Bathing : Independent (2) Dressing : Independent (2) Toileting : Independent (2) Transferring Bed or Chair : Independent (2) Continence : Independent (2) Feeding : Independent (2) ANTONIO MCDONALD RN - 12/18/2019 12:37 EDT ADL Index Score : 12 ANTONIO MCDONALD RN - 12/18/2019 12:37 EDT Advance Directive Patient has Advance Directive *Q : Yes, Advance Directive not with the patient Advance Directive Type : Living will Copy Advance Directive Verified/on Chart : No Advance Directive Comment : inst to bring in ANTONIO MCDONALD RN - 12/18/2019 12:37 EDT [place] Suicide Severity Rating Scale (C-SSRS) CSSRS Past Month Wish to be : No CSSRS Past Month Suicidal Thoughts : No CSSRS Lifetime Suicide Behavior : No Suicide Severity Rating Score : 0 Suicide Severity Rating : No Additional Care Required at this time ANTONIO MCDONALD RN - 12/18/2019 12:37 EDT Psychosocial History Do You Have a History of the Following? : Patient denies history Currently in Unsafe Situation : No ANTONIO MCDONALD RN - 12/18/2019 12:37 EDT Teaching/Learning Assessment Barriers To Learning : None evident Individuals Taught : Patient Readiness to Learn : Cooperative Readiness to Learn : Explanation, Printed materials ANTONIO MCDONALD RN - 12/18/2019 12:37 EDT Education Topics, Periop Preadmission Perioperative Education Grid Arrival Time/Place : Verbalizes understanding CHG Preoperative Bathing/Cloths : Verbalizes understanding Falls : Verbalizes understanding Infection Control : Verbalizes understanding IV's : Verbalizes understanding NPO Status/Directions : Verbalizes understanding Pain Management : Verbalizes understanding Postoperative Care Preparations : Verbalizes understanding Preprocedure Preparations : Verbalizes understanding Preprocedure Tests/Labs : Verbalizes understanding Remove Body Piercings : Verbalizes understanding Responsible Adult : Verbalizes understanding Take/Hold Medications Pre-Procedure : Verbalizes understanding ANTONIO MCDONALD RN - 12/18/2019 12:37 EDT Responsible Adult Contact Information : ANTONIO Alfredo RN - 12/18/2019 12:37 EDT General Info Preferred Name : alvarez Arrived From : Home Want Family/Rep/Phys Notified of Admit : No Emergency Contact #1 : ANTONIO Moody RN - 12/18/2019 12:37 EDT Emergency Contact #1 ANTONIO MCDONALD RN - 12/18/2019 17:09 EDT Emergency Contact #1 Relationship : spouse Emergency Contact #2 : none Emergency Contact #2 Phone Number : none Emergency Contact #2 Relationship : none Information Obtained From : Patient Primary Language : Cypriot Communication Barrier : None ANTONIO MCDONALD RN - 12/18/2019 12:37 EDT Jossue Scale Jossue Sensory Perception : No impairment Jossue Moisture : Rarely moist Jossue Activity : Walks occasionally (Comment: walker [ANTONIO MCDONALD, PABLITO - 12/18/2019 12:37 EDT] ) Jossue Mobility : Slightly limited Jossue Nutrition : Adequate Jossue Friction and Shear : No apparent problem Jossue Score : 20 ANTONIO MCDONALD RN - 12/18/2019 12:37 EDT Sleep Apnea Risk Assmt BiPAP/CPAP Ordered for Home Use : Yes Hx of Obstructive Sleep Apnea Diagnosis : Yes BiPAP/CPAP Used at Home : No Reason BiPAP/CPAP Not Used at Home : just quick using iot Age over 50 Years Old : Yes Gender Male : No ANTONIO MCDONALD RN - 12/18/2019 12:20 EDT Electronically signed by Renay Ribera Conversion Clinical Exercise Physiologist Cerner at 11/05/2022 6:15 PM CDT documented in this encounter Plan of Treatment Not on file documented as of this encounter Visit Diagnoses Not on filedocumented in this encounter
--- OUTSIDE RECORDS SUMMARY | 2025-02-23 12:35 | XMS_ITS | Encounter Summary ---
Author Organization [employer] ([place], [place], [place], [place]) Address [address] [place] [address] Care Team Providers Care Process Development Chemist Name Role Phone Unavailable Primary Care Provider Unavailabl e Encounter Details Date Type Department Care Team (Late st Contact Info) Description 06/01/2020 Transcribed Document [facility] [place] Family Medicine [address] [place] [address] ProviderNuha MD [address] [place] [address] Social History Tobacco Use Types Packs/Day Years Used Date Smoking Tobacco: Never Assessed Comments Unknown Sex and Gender Information Value Date Recorded Sex Assigned at Not on file Legal Sex Female 2:42 PM CDT Gender Identity Not on file Sexual Orientation Not on file documented as of this encounter Miscellaneous Notes * Cerner Conversion Note - Nuha ProviderMD - 06/01/2020 2:34 PM [employer] Patient Education Materials Follows: Hyponatremia Hyponatremia is when the amount of salt (sodium) in your blood is too low. When salt levels are low, your body may take in extra water. This can cause swelling throughout the body. The swelling often affects the brain. What are the causes? This condition may be caused by: ??? Certain medical problems or conditions. ??? Vomiting a lot. ??? Having watery poop (diarrhea) often. ??? Certain medicines or illegal drugs. ??? Not having enough water in the body (dehydration). ??? Drinking too much water. ??? Eating a diet that is low in salt. ??? Large hurtado on your body. ??? Too much sweating. What increases the risk? You are more likely to get this condition if you: ??? Have long-term (chronic) kidney disease. ??? Have heart failure. ??? Have a medical condition that causes you to have watery poop often. ??? Do very hard exercises. ??? Take medicines that affect the amount of salt is in your blood. What are the signs or symptoms? Symptoms of this condition include: ??? Headache. ??? Feeling like you may vomit (nausea). ??? Vomiting. ??? Being very tired (lethargic). ??? Muscle weakness and cramps. ??? Not wanting to eat as much as normal (loss of appetite). ??? Feeling weak or light-headed. Severe symptoms of this condition include: ??? Confusion. ??? Feeling restless (agitation). ??? Having a fast heart rate. ??? Passing out (fainting). ??? Seizures. ??? Coma. How is this treated? Treatment for this condition depends on the cause. Treatment may include: ??? Getting fluids through an IV tube that is put into one of your veins. ??? Taking medicines to fix the salt levels in your blood. If medicines are causing the problem, your medicines will need to be changed. ??? Limiting how much water or fluid you take in. ??? Monitoring in the hospital to watch your symptoms. Follow these instructions at home: ??? Take vcdo-rgm-gotoimw and prescription medicines only as told by your doctor. Many medicines can make this condition worse. Talk with your doctor about any medicines that you are taking. ??? Eat and drink exactly as you are told by your doctor. ? Eat only the foods you are told to eat. ? Limit how much fluid you take. ??? Do not drink alcohol. ??? Keep all follow-up visits as told by your doctor. This is important. Contact a doctor if: ??? You feel more like you may vomit. ??? You feel more tired. ??? Your headache gets worse. ??? You feel more confused. ??? You feel weaker. ??? Your symptoms go away and then they come back. ??? You have trouble following the diet instructions. Get help right away if: ??? You have a seizure. ??? You pass out. ??? You keep having watery poop. ??? You keep vomiting. Summary ??? Hyponatremia is when the amount of salt in your blood is too low. ??? When salt levels are low, you can have swelling throughout the body. The swelling mostly affects the brain. ??? Treatment depends on the cause. Treatment may include getting IV fluids, medicines, or not drinking as much fluid. This information is not intended to replace advice given to you by your health care provider. Make sure you discuss any questions you have with your health care provider. Document Released: 03/19/2012 Document Revised: 09/24/2019 Document Reviewed: 06/11/2019 [employer] Patient Education ? 2020 [employer] Ileostomy Reversal An ileostomy reversal is a procedure that reverses a temporary ileostomy. The small intestine is disconnected from the opening (stoma) in the abdomen. It is then reconnected to the rest of the intestine inside the body. After this procedure, a stoma and ostomy bag are no longer needed, and bowel movements can pass through the intestines and the rectum (bowel). Tell a health care provider about: ??? Any allergies you have. ??? All medicines you are taking, including vitamins, herbs, eye drops, creams, and llae-acf-aakwkxp medicines. ??? Any problems you or family [...] Damage to other structures or organs. ??? Narrowing of the intestine at the place where it was reconnected. ??? Blockage of the intestine (ileus). What happens before the procedure? Exams and [...] tells you to take them. ??? Taking rijd-zdz-xesciiw medicines, vitamins, herbs, and supplements. Staying hydrated Follow instructions from your health care provider about hydration, which may include: ??? Up to 2 hours before the procedure ? you may continue to drink clear liquids, such as water, clear fruit juice, black coffee, and plain tea. Eating and drinking Follow instructions from your health care provider about eating and drinking, which may include: ??? 8 hours before the procedure ? stop eating heavy meals or foods, such as meat, fried foods, or fatty foods. ??? 6 hours before the procedure ? stop eating light meals or foods, such as toast or cereal. ??? 6 hours before the procedure ? stop drinking milk or drinks that contain milk. ??? 2 hours before the procedure ? stop drinking clear liquids. General instructions ??? Ask your health care provider: ? How your surgery site will be marked. ? What steps will be taken to help prevent infection. These may include: ? Removing hair at the surgery site. ? Washing skin with a germ-killing soap. ? Taking antibiotic medicine. ??? Do not use any products that contain nicotine or tobacco for at least 4?6 weeks before the procedure. These products include cigarettes, e-cigarettes, and chewing tobacco. If you need help quitting, ask your health care provider. What happens during the procedure? An IV will be inserted into one of your veins. ??? You will be given a medicine to make you fall asleep (general anesthetic). You may also be given a medicine to help you relax (sedative). ??? One or more incisions will be made around your stoma to separate your small intestine from your skin. ??? If there is scar tissue in your abdomen, it will be removed. ??? The small intestine will be reconnected to the rest of the intestine inside your abdomen. ??? Your incisions will be closed with stitches (sutures), skin glue, or adhesive strips. The area may be covered with a bandage (dressing). The procedure may vary among health care providers and hospitals. What happens after the procedure? You may continue to receive fluids and medicines through an IV. ??? You will have some pain. Medicine will be available to help you. ??? Your blood pressure, heart rate, breathing rate, and blood oxygen level will be monitored until you leave the hospital or clinic. ??? You may not be able to drink fluids normally or eat solid food until at least 24 hours after your procedure. You may be given ice chips to suck on until you are able to drink fluids normally. ??? You may have to wear compression stockings. These stockings help to prevent blood clots and reduce swelling in your legs. Summary ??? An ileostomy reversal is a procedure that reverses a temporary ileostomy. ??? Before the procedure, follow instructions from your health care provider about taking medicines. ??? Before the procedure, follow instructions from your health care provider about eating and drinking. ??? Do not use any products that contain nicotine or tobacco for at least 4?6 weeks before the procedure. These products include cigarettes, e-cigarettes, and chewing tobacco. If you need help quitting, ask your health care provider. ??? After the procedure, you will have some pain. Medicine will be available to help you. This information is not intended to replace advice given to you by your health care provider. Make sure you discuss any questions you have with your health care provider. Document Released: 06/26/2012 Document Revised: 03/02/2019 Document Reviewed: 03/03/2019 [employer] Patient Education ? 2020 [employer]. Ileostomy Reversal, Care After This sheet gives you information about how to care for yourself after your procedure. Your health care provider may also give you more specific instructions. If you have problems or questions, contact your health care provider. What can I expect after the procedure? After the procedure, it is common to have: ??? A small amount of blood or clear fluid coming from your incision. ??? Pain and discomfort in your abdomen, especially near your incision. ??? Irregular bowel movements for several days. Follow these instructions at home: Medicines ??? Take nkkl-key-fcgbgoo and prescription medicines only as told by your health care provider. ??? Ask your health care provider if the medicine prescribed to you requires you to avoid driving or using heavy machinery. Incision care ??? Keep your incision area clean and dry. ??? Follow instructions from your health care provider about how to take care of your incision. Make sure you: ? Wash your hands with soap and water before and after you change your bandage (dressing). If soap and water are not available, use hand entrepreneurship program director. ? Change your dressing as told by [...] you to do that. ??? Check your incision area every day for signs of infection. Check for: ? Redness, swelling, or pain. ? Fluid or blood. ? Warmth. ? Pus or a bad smell. Eating and drinking ??? Follow instructions from your health care provider about eating and drinking. ??? If you have pain or discomfort after you eat, try eating soft foods until you do not experience these symptoms any more. ??? Eat meals and snacks at regular intervals. ??? Drink enough fluid to keep your urine pale yellow. Activity ??? Rest as much as possible while you are healing. ??? Return to your normal activities as told by your health care provider. Ask your health care provider what activities are safe for you. ??? Avoid intense physical activity for as long as you are told by your health care provider. ??? Do not lift anything that is heavier than 10 lb (4.5 kg), or the limit that you are told, for 6 weeks or until your health care provider says that it is safe. General instructions ??? Wear compression stockings as told by your health care provider. These stockings help to prevent blood clots and reduce swelling in your legs. ??? Do not take baths, swim, or use a hot tub until your health care provider approves. Ask your health care provider if you may take showers. You may only be allowed to take sponge baths. ??? Do not use any products that contain nicotine or tobacco, such as cigarettes, e-cigarettes, and chewing tobacco. If you need help quitting, ask your health care provider. ??? Keep track of your bowel movements. ??? Keep all follow-up visits as told by your health care provider. This is important. Contact a health care provider if: ??? You have redness, swelling, or pain around your incision. ??? You have fluid or blood coming from your incision. ??? Your incision feels warm to the touch. ??? You have pus or a bad smell coming from your incision. ??? You have a fever. ??? You have abdominal pain, bloating, pressure, or cramping. ??? You are having difficulty with bowel movements, such as: ? Diarrhea. ? Constipation. ? Pain during bowel movements. ??? You feel nauseous. ??? You vomit. ??? You feel dizzy or light-headed. ??? You have shortness of breath. ??? You have an unusual lack of energy (fatigue). Get help right away if you: ??? Have abdominal pain or cramps that do not go away with medicine or get worse. ??? Vomit more than once. ??? Have an irregular heartbeat. ??? Have chest pain. Summary ??? Take viug-gmj-jyijgkn and prescription medicines only as told by your health care provider. ??? Keep track of your bowel movements. ??? Contact a health care provider if you are having difficulty with bowel movements, such as diarrhea, constipation, or pain during bowel movements. ??? Contact a health care provider if you have redness, swelling, or pain around your incision. ??? Keep all follow-up visits as told by your health care provider. This is important. This information is not intended to replace advice given to you by your health care provider. Make sure you discuss any questions you have with your health care provider. Document Released: 06/26/2012 Document Revised: 03/02/2019 Document Reviewed: 03/03/2019 [employer] Patient Education ? 2020 [employer] Hematology Hyponatremia Hyponatremia is when the amount of salt (sodium) in your blood is too low. When sodium levels are low, your cells absorb extra water, which causes them to swell. The swelling happens throughout the body, but it mostly affects the brain. What are the causes? This condition may be caused by: ??? Certain medical conditions, such as: ? Heart, kidney, or liver problems. ? Thyroid problems. ? Adrenal gland problems. ? Metabolic conditions, such as Devyn disease or syndrome of inappropriate antidiuretic hormone (SIADH). ??? Severe vomiting or diarrhea. ??? Certain medicines or illegal drugs. ??? Dehydration. ??? Drinking too much water. ??? Eating a diet that is low in sodium. ??? Large hurtado on your body. ??? Excessive sweating. What increases the risk? You are more likely to develop this condition if you: ??? Have long-term (chronic) kidney disease. ??? Have heart failure. ??? Have a medical condition that causes frequent or excessive diarrhea. ??? Participate in intense physical activities, such as marathon running. ??? Take certain medicines that affect the sodium and fluid balance in the blood. Some of these medicine types include: ? Diuretics. ? NSAIDs. ? Some opioid pain medicines. ? Some antidepressants. ? Some seizure prevention medicines. What are the signs or symptoms? Symptoms of this condition include: ??? Headache. ??? Nausea and vomiting. ??? Being very tired (lethargic). ??? Muscle weakness and cramping. ??? Loss of appetite. ??? Feeling weak or light-headed. Severe symptoms of this condition include: ??? Confusion. ??? Agitation. ??? Having a rapid heart rate. ??? Passing out (fainting). ??? Seizures. ??? Coma. How is this diagnosed? This condition is diagnosed based on: ??? A physical exam. ??? Your medical history. ??? Tests, including: ? Blood tests. ? Urine tests. How is this treated? Treatment for this condition depends on the cause. Treatment may include: ??? Getting fluids through an IV that is inserted into one of your veins. ??? Medicines to correct the sodium imbalance. If medicines are causing the condition, the medicines will need to be adjusted. ??? Limiting your water or fluid intake to get the correct sodium balance. ??? Monitoring in the hospital setting to closely watch your symptoms for improvement. Follow these instructions at home: ??? Take rvtg-vdy-xiivito and prescription medicines only as told by your health care provider. Many medicines can make this condition worse. Talk with your health care provider about any medicines that you are currently taking. ??? Carefully follow a recommended diet as told by your health care provider. ??? Carefully follow instructions from your health care provider about fluid restrictions. ??? Do not drink alcohol. ??? Keep all follow-up visits as told by your health care provider. This is important. Contact a health care provider if: ??? You develop worsening nausea, fatigue, headache, confusion, or weakness. ??? Your symptoms go away and then return. ??? You have problems following the recommended diet. Get help right away if: ??? You have a seizure. ??? You pass out. ??? You have ongoing diarrhea or vomiting. Summary ??? Hyponatremia is when the amount of salt (sodium) in your blood is too low. ??? When sodium levels are low, your cells absorb extra water, which causes them to swell. ??? The swelling happens throughout the body, but it mostly affects the brain. ??? Treatment for this condition depends on the cause. It may include IV fluids, medicines, and limiting your fluid intake. This information is not intended to replace advice given to you by your health care provider. Make sure you discuss any questions you have with your health care provider. Document Released: 06/28/2003 Document Revised: 05/22/2019 Document Reviewed: 05/22/2019 [employer] Patient Education ? 2020 [employer] documented in this encounter Plan of Treatment Not on file documented as of this encounter Visit Diagnoses Not on filedocumented in this encounter
--- OUTSIDE RECORDS SUMMARY | 2025-02-23 12:35 | XMS_ITS | Encounter Summary ---
Author Organization [employer] ([place], [place], [place], [place]) Address [address] [place] [address] Care Team Providers Care Sheet Combining Operator Name Role Phone Unavailable Primary Care Provider Unavailabl e Encounter Details Date Type Department Care Team (Late st Contact Info) Description 12/28/2019 Transcribed Document [facility] Radiology [address] [place] [address] Mei Kuhn MD [address] [place] [id number] Social History Tobacco Use Types Packs/Day Years Used Date Smoking Tobacco: Never Assessed Comments Unknown Sex and Gender Information Value Date Recorded Sex Assigned at Not on file Legal Sex Female 2:42 PM CDT Gender Identity Not on file Sexual Orientation Not on file documented as of this encounter Miscellaneous Notes * Cerner Conversion Note - Mei Kuhn MD - 12/28/2019 8:56 AM EDT Discharge Instructions Entered On: 12/28/2019 7:57 EDT Performed On: 12/28/2019 7:56 EDT by MEI KUHN MD-INT DC Instructions HWD Special Instructions : Monitor your output from ostomy and fluid intake to avoid dehydration. Do not take water pills now as it can worsen dehydration. Take loperamide as directed by your surgeon MEI KUHN MD-INT - 12/28/2019 7:56 EDT documented in this encounter Plan of Treatment Not on file documented as of this encounter Visit Diagnoses Not on filedocumented in this encounter
--- OUTSIDE RECORDS SUMMARY | 2025-02-23 12:35 | XMS_ITS | Encounter Summary ---
Author Organization [employer] ([place], [place], [place], [place]) Address [address] [place] [address] Care Team Providers Care Chairlift Operator Name Role Phone Unavailable Primary Care Provider Unavailabl e Encounter Details Date Type Department Care Team (Late st Contact Info) Description 12/22/2019 Transcribed Document [facility] [place] [facility] [place] [address] ProviderNuha MD [address] [place] [address] Social History Tobacco Use Types Packs/Day Years Used Date Smoking Tobacco: Never Assessed Comments Unknown Sex and Gender Information Value Date Recorded Sex Assigned at Not on file Legal Sex Female 2:42 PM CDT Gender Identity Not on file Sexual Orientation Not on file documented as of this encounter Miscellaneous Notes * Cerner Conversion Note - Nuha ProviderMD - 12/22/2019 10:48 AM CDT Patient: NATE KRAMER Age: 69 Years Sex: Female : 1950 *Operation Colon Resection Low Anterior, Ileostomy, Cystoscopy Stent Insertion, Left ureterolysis Omental pedicle flap Drainage of pelvic abscess 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 *Postoperative Diagnosis SEE MD NOTES *Surgeon(s) Primary Surgeon BHUPENDRA MARISCAL MD-PRO (Surgeon/Proceduralist, First) TARIQ NAPIER MD-URO *Estimated Blood Loss 100mL *Findings Dense pelvic adhesions, walled off pelvic abscess, negative air leak test *Specimen(s) rectosigmoid colon, abscess culture Complications None Date of Service Date/Time of Service SN - Proc - Start Time: 12/22/19 08:09:00 (12/22/19 08:20:04) SN - Proc - Start Time: 12/22/19 08:09:00 (12/22/19 08:20:04) SN - Proc - Start Time: 12/22/19 08:09:00 (12/22/19 08:20:04) documented in this encounter Plan of Treatment Not on file documented as of this encounter Visit Diagnoses Not on filedocumented in this encounter
--- OUTSIDE RECORDS SUMMARY | 2025-02-23 12:36 | XMS_ITS | Encounter Summary ---
Author Organization [employer] ([place], [place], [place], [place]) Address [address] [place] [address] Care Team Providers Care Boat Canvas Maker And Installer Name Role Phone Unavailable Primary Care Provider Unavailabl e Encounter Details Date Type Department Care Team (Late st Contact Info) Description 12/25/2019 Transcribed Document [facility] [place] Family Medicine [address] [place] [address] ProvideruNha MD [address] [place] [address] Social History Tobacco Use Types Packs/Day Years Used Date Smoking Tobacco: Never Assessed Comments Unknown Sex and Gender Information Value Date Recorded Sex Assigned at Not on file Legal Sex Female 2:42 PM CDT Gender Identity Not on file Sexual Orientation Not on file documented as of this encounter Miscellaneous Notes * Cerner Conversion Note - Nuha ProviderMD - 12/25/2019 9:50 AM CDT RX Interventions Entered On: 12/25/2019 9:51 EDT Performed On: 12/25/2019 9:50 EDT by DEISY FRASER [facility] Clinical Interventions Antibiotic Stewardship : Yes DEISY FRASER [facility] - 12/25/2019 9:50 EDT Antibiotic Stewardship No Antibiotic Coverage : Yes Drug Optimization : Yes DEISY FARSER [facility] - 12/25/2019 9:50 EDT Drug Optimization Drug Optimization, Order : esbl klebs cx, d/w MD and started merrem IV renally adjusted to 500 mg IV q8h and MD will place ID consult. Drug Optimization, Prescriber Response : Accepted Drug Optimization, Value : 90 Dollar Drug Optimization, Time : 30 Dollar DEISY FRASER [facility] - 12/25/2019 9:50 EDT No Antibiotic Coverage No Antibiotic Coverage, Prescriber Response : Accepted No Antibiotic Coverage, Value : 90 Dollar No Antibiotic Coverage, Time : 30 Minute(s) DEISY FRASER, [facility] - 12/25/2019 9:50 EDT Electronically signed by [facility] Conversion Websphere Administrator Cerner at 11/05/2022 6:08 PM CDT documented in this encounter Plan of Treatment Not on file documented as of this encounter Visit Diagnoses Not on filedocumented in this encounter
--- OUTSIDE RECORDS SUMMARY | 2025-02-23 12:36 | XMS_ITS | Encounter Summary ---
Author Organization [employer] ([place], [place], [place], [place]) Address [address] [place] [address] Care Team Providers Care Emergency Department Aide Name Role Phone Unavailable Primary Care Provider Unavailabl e Encounter Details Date Type Department Care Team (Late st Contact Info) Description 12/25/2019 Transcribed Document [facility] [place] Family Medicine [address] [place] [address] ProviderNuha MD [address] [place] [address] Social History Tobacco Use Types Packs/Day Years Used Date Smoking Tobacco: Never Assessed Comments Unknown Sex and Gender Information Value Date Recorded Sex Assigned at Not on file Legal Sex Female 2:42 PM CDT Gender Identity Not on file Sexual Orientation Not on file documented as of this encounter Miscellaneous Notes * Cerner Conversion Note - Nuha ProviderMD - 12/25/2019 3:47 PM CDT [facility] Inpatient Documentation Entered On: 12/25/2019 15:53 EDT Performed On: 12/25/2019 15:47 EDT by Norma Horton Rn-Enterostomal WO Admission Date : Admit Date 12/22/2019 06:[address] : Diagnosis (2) 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 Patient OOB to chair. Plans to DC on hold at this time. Pouch applied yesterday remained intact without leaking. Previous area of dendudement almost healed. Today patient return demonstrated pouch emptying, removal and application. Loop ileostomy to RLQ. Jean Marie removed, per MD order, without incident. Patient performed clean, caulk and place with minimal assistance using a two piece red flat pouching system. Seal obtained without leak. Additional supplies and all order information provided. Reviewed daily living with an ileostomy including but not limited to diet, activity, anatomy, fluid and electrolyte replacement, use of extended release medications and risk for obstruction. All questions and concerns answered. Patient to follow up in the outpatient ostomy clinic as inidicated. Norma Horton Rn-Enterostomnatalya - 12/25/2019 15:47 EDT Wound & Pressure Ulcer WOCN Wound Pressure Ulcer Documentation : No incision/wound/skin abnormality or pressure ulcer assessments reported. WOCN Ostomy Documentation : Ostomy: Ileostomy RUQ on 12/25/2019 15:00 by Norma Horton Rn-Enterostomal Diversion Present on Admission: No Ostomy Care Performed: By patient/family Ostomy Stoma Length, mm: 44 Ostomy Stoma Width, mm: 35 Stoma Shape: Oval Stoma Description: Budded, Edematous, Loop, jean marie (bridge) in place, Moist, Red Peristomal Skin Description: Denuded Mucocutaneous Junction: Intact Ostomy Equipment: Ostomy paste, Pouch, drainable, Two piece system Ostomy Wafer Type: Flat Ostomy Product Number: red Ostomy System Assessment: Well fitting Ostomy Activity: Assessed, Pouch, wafer changed, Jean Marie (bridge) removed Ostomy Pouch Change Next Due: [id number]:0:0 Ostomy Skin Cleansed With: Water Ostomy Treatment Response: Expected Ostomy Output, Gastrointestinal: 100 Norma Horton Rn-Enterostomal - 12/25/2019 15:47 EDT documented in this encounter Plan of Treatment Not on file documented as of this encounter Visit Diagnoses Not on filedocumented in this encounter
--- OUTSIDE RECORDS SUMMARY | 2025-02-23 12:36 | XMS_ITS | Encounter Summary ---
Author Organization [employer] ([place], [place], [place], [place]) Address [address] [place] [address] Care Team Providers Care Geotechnical Operating Engineer Name Role Phone Unavailable Primary Care Provider Unavailabl e Encounter Details Date Type Department Care Team (Late st Contact Info) Description 06/01/[address] [facility] [place] Family Medicine [facility] [place] [address] ProviderNuha MD [address] [place] [address] Social History Tobacco Use Types Packs/Day Years Used Date Smoking Tobacco: Never Assessed Comments Unknown Sex and Gender Information Value Date Recorded Sex Assigned at Not on file Legal Sex Female 2:42 PM CDT Gender Identity Not on file Sexual Orientation Not on file documented as of this encounter Miscellaneous Notes * Cerner Conversion Note - Historical ProviderMD - 06/01/2020 4:01 PM [facility] Nursing Discharge Summary Entered On: 06/01/2020 16:02 EST Performed On: 06/01/2020 16:01 EST by Kay Shaffer RN Discharge Documentation Discharge Date/Time : 06/01/2020 16:01 EST Patient Disposition, General : Discharge Discharge To : Home with ambulatory/outpatient follow-up Mode Of Departure, General Discharge : Private vehicle, Wheelchair Accompanied By, Discharge : Unaccompanied IV Discontinued : Yes Personal Belongings With Patient : Yes Prescriptions Given to Patient : Yes Discharge Instructions Reviewed With, Opportunity For Questions Given : Patient Patient Education Completed : Yes Number of Prescriptions Given : 3 Teaching Method : Explanation Teaching Evaluation : Verbalizes understanding Education Comment : pt verbalizes understanding regarding discharge instructions Kay Shaffer RN - 06/01/2020 16:01 EST Electronically signed by Bac[facility] Conversion Director Of Compliance Cerner at 11/05/2022 5:58 PM CDT documented in this encounter Plan of Treatment Not on file documented as of this encounter Visit Diagnoses Not on filedocumented in this encounter
--- OUTSIDE RECORDS SUMMARY | 2025-02-23 12:36 | XMS_ITS | Encounter Summary ---
Author Organization [employer] ([place], [place], [place], [place]) Address [address] [place] [address] Care Team Providers Care Senior Communications Engineer Name Role Phone Unavailable Primary Care Provider Unavailabl e Encounter Details Date Type Department Care Team (Late st Contact Info) Description 06/01/2020 Transcribed Document [facility] Family Medicine [address] [place] [address] ProviderNuha MD [address] [place] [address] Social History Tobacco Use Types Packs/Day Years Used Date Smoking Tobacco: Never Assessed Comments Unknown Sex and Gender Information Value Date Recorded Sex Assigned at Not on file Legal Sex Female 2:42 PM CDT Gender Identity Not on file Sexual Orientation Not on file documented as of this encounter Miscellaneous Notes * Cerner Conversion Note - Nuha ProviderMD - 06/01/2020 3:47 PM NURSERY ATTENDANT [facility] 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 - Not met Discharge Vitals Temperature 36.2 ??C Heart Rate (Monitored) 66 Respiratory Rate 18 Blood Pressure 98/57 What to do next Instructions From Your Care Team Diet after Discharge: Resume usual diet as tolerated, Activity after Discharge: As tolerated, Lifting Restrictions: No lifting restrictions Driving after Discharge: Do not drive until 24 hours after no longer taking pain medications May Return to Work/School: to be determined by surgeon Showering/Bathing: May shower, No tub bathing, soaking or swimming Notify Provider of: questions or concerns Wound/Incision Care after Discharge: Keep operative site/wound site clean and dry, Discharge Activity: Discharge Activity: No strenuous activities Follow-Up Appointments Follow Up with BHUPENDRA MARISCAL When 06/13/2020 07:45 AM EST Comments Appointment has been made Bring discharge instructions with you Bring Ins Card, Photo ID, Ins Co-pay; if needed sooner, please call office. Where: [address]; [place] ([place]) [place] [id number]- [facility] (1) Follow Up with Please encorporate salt in your diet moderately. Your sodium levels before discharge were 129. I would like you to follow up with your kidney doctor to further discuss the low sodium and for a repeat basic metabolic profile in 1 week When Within 2 to 3 days Follow Up with Continue wound care by washing with warm soapy water daily and patting dry When Within 2 to 3 days Medications What How Much When Instructions Next Dose diazePAM (Valium 5 mg oral tablet) 1 Tablet(s) Oral Four Times A Day as needed for Muscle Spasms Caution: Valium increases risk of sedation when taken with Oxycodone. Take only as needed and as rarely as possible. as needed acetaminophen/ butalbital/ caffeine (acetaminophen/ butalbital/ caffeine 325 mg-50 mg-40 mg oral tablet) 1 Tablet(s) Oral Every 4 Hours as needed for Migraine Headache as needed ondansetron (Zofran ODT 8 mg oral tablet, disintegrating) 1 Tablet(s) SubLINgual Three Times A Day as needed for Nausea as needed albuterol (Proventil HFA 90 mcg/ inh inhalation aerosol) 2 Puff(s) Inhalation Every 4 Hours as needed for for wheezing as needed aspirin (aspirin 81 mg oral tablet, chewable) 1 Tablet(s) Oral Every Day You may resume aspirin in 5 days 06/02/2020 buPROPion (buPROPion 150 mg/ 24 hours (XL) oral tablet, extended release) 1 Tablet(s) Oral Every Day 06/02/2020 cyanocobalamin (Vitamin B12 1000 mcg oral tablet) 1 Tablet(s) Oral Every Day fentaNYL (fentaNYL 37.5 mcg/ hr transdermal film, extended release) 1 Patch(es) Topical Interval Every 72 Hours ferrous sulfate (ferrous sulfate 325 mg (65 mg elemental iron) oral delayed release tablet) 1 Tablet(s) Oral Every Day 06/02/2020 gabapentin (gabapentin 300 mg oral capsule) 2 Capsule(s) Oral Three Times A Day 06/01/2020 guaiFENesin (Mucinex 600 mg oral tablet, extended release) 2 Tablet(s) Oral Every 12 hours as needed for Cough as needed lenalidomide (Revlimid 2.5 mg oral capsule) 1 Capsule(s) Oral Every Day CURRENTLY ON HOLD FOR SCHEDULED PROCEDURE; HOLD 2 WEEKS PRIOR TO SURGERY AND 2 WEEEKS AFTER SURGERY; 06/02/2020 loperamide (loperamide 2 mg oral capsule) 1 Capsule(s) Oral Every 4 Hours as needed for for loose stool as needed Magic Mouthwash 5 Milliliter(s) Swish and Spit Every 6 Hours as needed for Mouth Sore Pain as needed magnesium oxide (magnesium oxide 400 mg (240 mg elemental magnesium) oral tablet) 1 Tablet(s) Oral Two Times A Day 06/01/2020 methenamine (methenamine hippurate 1 g oral tablet) 0.5 Tablet(s) Oral Two Times A Day 06/01/2020 montelukast (montelukast 10 mg oral tablet) 1 Tablet(s) Oral Every Day 06/02/2020 nystatin topical (nystatin 100,000 units/ g topical cream) 1 Application(s) Topical Two Times A Day as needed for Other (See Comment) apply to affected areas as directed as needed omeprazole (omeprazole 40 mg oral delayed release capsule) 1 Capsule(s) Oral Every Day before a meal 06/02/2020 oxyCODONE (oxyCODONE 10 mg oral tablet) 1 Tablet(s) Oral Every 6 Hours as needed for Breakthrough Pain as needed rOPINIRole (rOPINIRole 0.25 mg oral tablet) 1 Tablet(s) Oral Two Times A Day 06/01/2020 Take your medications faithfully. Do NOT skip [...] (Hives) Immunizations This Visit No Immunizations Found Stroke/TIA Instructions Individualized Stroke Risk Factors Individualized Stroke Risk Factors *Q: Hypertension/High blood pressure Stroke/TIA Signs/Symptoms to Report Immediately: Sudden onset difficulty speaking, Sudden onset difficulty understanding speech, Sudden onset change in vision, Sudden onset weakness particulary on one side of the body, Sudden onset numbness/tingling, Sudden severe headache, Sudden dizziness or trouble with gait, Call : EMS activation is crucial Mutually Agreed Upon Goals My LDL Level: My LDL Level: Education Materials Hyponatremia Hyponatremia is when the amount of [...] Follow these instructions at home: ??? Take tpfz-glu-lwebzpl and prescription medicines only as told by [...] 03/19/2012 Document Revised: 09/24/2019 Document Reviewed: 06/11/2019 [employer] Patient Education ?? 2020 [employer] Hyponatremia Hyponatremia is when the amount of [...] Follow these instructions at home: ??? Take xaik-ire-sjocbua and prescription medicines only as told by [...] 06/28/2003 Document Revised: 05/22/2019 Document Reviewed: 05/22/2019 [employer] Patient Education ?? 2020 [employer]. Ileostomy Reversal An ileostomy reversal is a [...] including vitamins, herbs, eye drops, creams, and puxo-tsw-nhzslfe medicines. ??? Any problems you or family [...] tells you to take them. ??? Taking rspq-xza-qnruwwt medicines, vitamins, herbs, and supplements. Staying hydrated [...] the procedure ??? stop drinking clear liquids. General instructions ??? [...] 06/26/2012 Document Revised: 03/02/2019 Document Reviewed: 03/03/2019 [employer] Patient Education ?? 2020 [employer]. Ileostomy Reversal, Care After This sheet gives [...] these instructions at home: Medicines ??? Take govf-xsr-zcirgdj and prescription medicines only as told by [...] and water are not available, use hand pricing clerk. ? Change your dressing as told by [...] ??? Have chest pain. Summary ??? Take jdki-fbf-hgynhpb and prescription medicines only as told by [...] 06/26/2012 Document Revised: 03/02/2019 Document Reviewed: 03/03/2019 [employer] Patient Education ?? 2020 [employer] Emergency Awareness and Preventative Care STROKE is [...] Assistance with quitting is available by contacting NOW. This is a free resource providing counseling, [...] This Visit (last charted value for your 05/30/2020 visit) Hematology 06/01/2020 6:27 AM WBC: 6.2 K/uL -- Normal range between ( 4.5 and 10.5 ) RBC: 3.82 Million/uL -- Normal range between ( 3.93 and 5.22 ) Hct: 34.3 % -- Normal range between ( 34.1 and 44.9 ) Hgb: 11.2 g/dL -- Normal range between ( 11.2 and 15.7 ) Platelet Count: 221 K/uL -- Normal range between ( 163 and 369 ) MCH: 29.3 pg -- Normal range between ( 25.6 and 32.2 ) MCHC: 32.7 Gram/dL -- Normal range between ( 32.2 and 36.5 ) MCV: 89.8 fL -- Normal range between ( 79.0 and 94.8 ) Slide Review: No RDW: 14.6 % -- Normal range between ( 11.7 and 14.9 ) MPV: 9.2 fL -- Normal range between ( 9.4 and 12.4 ) 05/26/2020 12:22 PM Eos %: 6.3 % -- Normal range between ( 0.0 and 7.0 ) Broome #: 0.73 K/uL -- Normal range between ( 0.16 and 1.00 ) Eos #: 0.30 x10(3)/uL -- Normal range between ( 0.00 and 0.80 ) Broome %: 15.3 % -- Normal range between ( 3.0 and 9.0 ) ALYC #: 1 K/uL Baso %: 2.5 % -- Normal range between ( 0.0 and 1.5 ) RBC Morphology: Abnormal Baso #: 0.12 x10(3)/uL -- Normal range between ( 0.00 and 0.20 ) ANC #: 3 K/uL Broome Percent Man: 15 % -- Normal range between ( 4 and 5 ) Neut %: 52.9 % -- Normal range between ( 34.0 and 71.0 ) Ovalocytes: 1+ Baso Percent Man: 4 % -- Normal range between ( 0 and 1 ) Neut #: 2.53 K/uL -- Normal range between ( 1.56 and 6.13 ) Neutrophil Percent Man: 54 % -- Normal range between ( 50 and 65 ) Eos Percent Man: 8 % -- Normal range between ( 0 and 3 ) Lymph %: 22.6 % -- Normal range between ( 19.3 and 53.1 ) Platelet Ct Estimate: Adequate Lymph #: 1.08 x10(3)/uL -- Normal range between ( 1.00 and 3.90 ) Poikilocytosis: 1+ Lymph Percent Man: 19 % -- Normal range between ( 24 and 44 ) IG#: 0.02 x10(3)/uL -- Normal range between ( 0.00 and 0.05 ) IG%: 0.40 % -- Normal range between ( 0.00 and 0.60 ) [facility] 05/26/2020 11:15 AM Novel Coronavirus 2019: Negative Blood Bank 05/30/2020 12:33 PM ABO/Rh (ECHO): A POS Antibody Screen: Negative ABSC General Chemistry 06/01/2020 6:27 AM Creatinine Level: 1.50 mg/dL -- Normal range between ( 0.55 and 1.02 ) Sodium Level: 129 mmol/L -- Normal range between ( 136 and 146 ) Potassium Level: 3.6 mmol/L -- Normal range between ( 3.5 and 5.1 ) Chloride Level: 100 mmol/L -- Normal range between ( 102 and 112 ) Carbon Dioxide Level: 21 mmol/L -- Normal range between ( 21 and 32 ) Anion Gap: 12 -- Normal range between ( 9 and 20 ) Bun/Creatinine: 20.7 -- Normal range between ( 8.0 and 20.0 ) Calcium Level: 7.9 mg/dL -- Normal range between ( 8.4 and 10.1 ) eGFR : 42 mL/min/1.73m2 eGFR NonAfrican: 35 mL/min/1.73m2 Glucose Level: 83 mg/dL -- Normal range between ( 74 and 106 ) Blood Urea Nitrogen: 31 mg/dL -- Normal range between ( 7 and 22 ) 06/01/2020 5:39 AM Glucose POC2: 81 mg/dL -- Normal range between ( 70 and 110 ) Device Comment 1: Device Comment 1 05/31/2020 11:02 AM Device Comment 2: Device Comment 2 05/31/2020 7:17 AM Magnesium Level: 2.0 mg/dL -- Normal range between ( 1.5 and 2.4 ) 05/30/2020 12:30 PM Potassium POC: 4.7 mmol/L -- Normal range between ( 3.5 and 4.9 ) Creatinine POC: 1.7 mg/dL -- Normal range between ( 0.6 and 1.3 ) Glucose POC: 85 mg/dL -- Normal range between ( 70 and 105 ) 05/26/2020 12:22 PM Bilirubin Total: 0.5 mg/dL -- Normal range between ( 0.2 and 1.2 ) Hgb A1C: 4.6 % A/G Ratio: 1.1 -- Normal range between ( 1.1 and 2.5 ) ALT: 54 Units/Liter -- Normal range between ( 13 and 56 ) AST: 33 Units/Liter -- Normal range between ( 5 and 37 ) Globulin: 3.6 Gram/dL -- Normal range between ( 1.5 and 4.5 ) Alk Phos: 218 Units/Liter -- Normal range between ( 27 and 136 ) eAVG Glucose: 85 mg/dL Protein Total: 7.7 Gram/dL -- Normal range between ( 6.4 and 8.2 ) Albumin Level: 4.1 Gram/dL -- Normal range between ( 3.4 and 5.0 ) 05/26/2020 12:19 PM :Potassium Level POC: :Potassium Level POC Patient Name:NATE KRAMER I have received and understand this information and was given the opportunity to ask questions. Patient/Wire Drawer Name: Patient/Wire Drawer Signature: Relationship to Patient: Clinician/Hospital Wire Drawer Signature: Date: documented in this encounter Plan of Treatment Not on file documented as of this encounter Visit Diagnoses Not on filedocumented in this encounter
--- OUTSIDE RECORDS SUMMARY | 2025-02-23 12:36 | XMS_ITS | Encounter Summary ---
Author Organization [employer] ([place], [place], [place], [place]) Address [address] [place] [address] Care Team Providers Care French Translator Name Role Phone Unavailable Primary Care Provider Unavailabl e Encounter Details Date Type Department Care Team (Late st Contact Info) Description 05/30/2020 Transcribed Document [facility] [place] [facility] [place] [address] ProviderNuha MD [address] [place] [address] Social History Tobacco Use Types Packs/Day Years Used Date Smoking Tobacco: Never Assessed Comments Unknown Sex and Gender Information Value Date Recorded Sex Assigned at Not on file Legal Sex Female 2:42 PM CDT Gender Identity Not on file Sexual Orientation Not on file documented as of this encounter Miscellaneous Notes * Cerner Conversion Note - Nuha ProviderMD - 05/30/2020 1:10 PM SET OFF PRESS OPERATOR Procedural Documentation Entered On: 05/30/2020 13:34 EST Performed On: 05/30/2020 13:10 EST by Nadine Mcgarry RN Procedure Documentation Time Out Pause Time : 05/30/2020 13:10 EST All Activity Suspended : Yes Team Verbally Confirms Information : Correct patient identity, Correct side and site are marked, Consent form is present and accurate, Agreement on the procedure to be done, Correct patient position, Relevant images/results properly labeled/appropriately displayed, Confirm the skin prep has dried Procedure Performed : bilateral TAP block Proper Use of Sterile Apparel per Policy : Yes Procedure Case Attendee : DEBBY CLAYTON MD-ANS Procedure Case Attendee Role : Anesthesiologist Procedure Case Attendee Role 2 : forward air controller/air officer Case Attendee 2 : Nadine Mcgarry RN Ramezankhani, Lesley R, RN - 05/30/2020 13:32 EST Malika Level I Post Anesthesia Assessment Malika I Activity Status : Moves 4 extremities voluntarily or on command Malika l Respiratory Component : Able to deep breathe and cough freely Malika I Circulation Component : BP 20% of preanesthetic level Malika I Consciousness : Fully awake Malika l Oxygen Saturation : Needs oxygen to maintain > 92% Malika l Score : 9 Nadine Mcgarry RN - 05/30/2020 13:32 EST Vital Measurements Pulse Method : Pulse Oximetry Peripheral Pulse Rate : 78 bpm Respiratory Rate : 20 Breaths/Min Blood Pressure Location : Arm, right upper Systolic Blood Pressure : 112 mmHg Diastolic Blood Pressure : 56 mmHg (LOW) Oxygen Saturation : 100 % Oxygen Therapy Mode : Nasal cannula Oxygen Flow Rate : 2 Liter/Min Nadine Mcgarry RN - 05/30/2020 13:32 EST Oxygen Therapy Oxygen Titrated : No Oxygen Therapy Mode : Nasal cannula Oxygen Flow Rate : 2 Liter/Min Pulse Oximeter Probe Site : Hand, right O2 Saturation Monitoring Frequency : Continuous Oxygen Saturation : 100 % Oxygen Humidification : None Nadine Mcgarry RN - 05/30/2020 13:32 EST documented in this encounter Plan of Treatment Not on file documented as of this encounter Visit Diagnoses Not on filedocumented in this encounter
--- OUTSIDE RECORDS SUMMARY | 2025-02-23 12:36 | XMS_ITS | Encounter Summary ---
Author Organization [employer] ([place], [place], [place], [place]) Address [address] [place] [address] Care Team Providers Care Edge Stainer Machine Name Role Phone Unavailable Primary Care Provider Unavailabl e Encounter Details Date Type Department Care Team (Late st Contact Info) Description 12/22/2019 Transcribed Document [facility] [place] [address] [place] [address] ProviderNuha MD [address] [place] [address] Social History Tobacco Use Types [...] Historical ProviderMD - 12/22/2019 10:52 AM CDT Pain Assessment Entered On: 12/26/2019 2:08 EDT Performed On: 12/26/2019 1:24 EDT by JOHANNY HAMPTON RN Intervention Information: morphine Performed by JOHANNY HAMPTON RN on 12/26/2019 00:54:00 EDT morphine,2mg IV Push,Portacath single,Pain (Severe 7-10) Pain Assessment Pain Assessment : Follow-up assessment Pain Scale Goal : 3 JOHANNY HAMPTON RN - 12/26/2019 2:08 EDT documented in this encounter Plan of Treatment Not on file documented as of this encounter Visit Diagnoses Not on filedocumented in this encounter
--- OUTSIDE RECORDS SUMMARY | 2025-02-23 12:36 | XMS_ITS | Encounter Summary ---
Author Organization [employer] ([place], [place], [place], [place]) Address [address] [place] [address] Care Team Providers Care Thermodynamic Physicist Name Role Phone Unavailable Primary Care Provider Unavailabl e Encounter Details Date Type Department Care Team (Late st Contact Info) Description 12/25/2019 Transcribed Document [facility] [place] [facility] [place] [address] ProviderNuha MD [address] [place] [address] Social History Tobacco Use Types Packs/Day Years Used Date Smoking Tobacco: Never Assessed Comments Unknown Sex and Gender Information Value Date Recorded Sex Assigned at Not on file Legal Sex Female 2:42 PM CDT Gender Identity Not on file Sexual Orientation Not on file documented as of this encounter Miscellaneous Notes * Cerner Conversion Note - Nuha ProviderMD - 12/25/2019 1:53 PM CDT On Going Discharge Planning Entered On: 12/25/2019 13:54 EDT Performed On: 12/25/2019 13:53 EDT by GRANT AYALA Research/Program Director-Client Server Programmer Care Management Progress Note Discharge Arrangements : Patient Post-Acute Information Patient Name: NATE KRAMER Gender: Female : [birth year] Age: 69 Years No Post-Acute Placement(s) Listed No Post-Acute Service(s) Listed No Curaspan Referral(s) Listed GRANT AYALA, Research/Program Director-Client Server Programmer - 12/25/2019 13:59 EDT Discharge Options Discussed with Patient : Home Health Barriers to Discharge Identified : Clinical Condition of Patient Barriers to Discharge Unresolved : Clinical Condition of Patient Designation of Choice Signed : No Patient Offered Choice/Affiliations Explained : No Were Referrals Sent to Post Acute Providers : Yes Is the Patient Meeting Medical Necessity : Yes Did you Attend Multidisciplinary Rounds? : Yes GRANT AYALA, Research/Program Director-Client Server Programmer - 12/25/2019 13:53 EDT Narrative Progress Note Narrative Progress Note : Patient stated that she would like HH through [facility] as she is a new ileostomy. Patient denied having any other discharge needs. CM faxed the referral to [facility] and notified Areli of referral. Areli requested to make sure that patient discharges home with plenty of ostomy supplies. Historical Progress Note : MDR rounds held in [...] tomorrow. Plan is home tomorrow. BECK FINLEY, Research/Program Director - 12/24/19 15:10:38 GRANT AYALA, Research/Program Director-Client Server Programmer - 12/25/2019 13:59 EDT documented in this encounter Plan of Treatment Not on file documented as of this encounter Visit Diagnoses Not on filedocumented in this encounter
--- OUTSIDE RECORDS SUMMARY | 2025-02-23 12:36 | XMS_ITS | Encounter Summary ---
Author Organization [email or web address] ([place], [place], [place], [place]) Address [address] [place] [address] Care Team Providers Care Air Transportation Provider Name Role Phone Unavailable Primary Care Provider Unavailabl e Encounter Details Date Type Department Care Team (Late st Contact Info) Description 06/01/2020 Transcribed Document [facility] [place] [address] [place] [address] ProviderNuha MD [address] [place] [address] Social History Tobacco Use Types Packs/Day Years Used Date Smoking Tobacco: Never Assessed Comments Unknown Sex and Gender Information Value Date Recorded Sex Assigned at Not on file Legal Sex Female 2:42 PM CDT Gender Identity Not on file Sexual Orientation Not on file documented as of this encounter Miscellaneous Notes * Cerner Conversion Note - Historical ProviderMD - 06/01/2020 5:00 AM SET UP AND CHARGER Chart Check - Review Order Profile Entered On: 06/01/2020 4:04 EST Performed On: 06/01/2020 5:00 EST by Dhara Kelly RN Chart Check Powerplans Initiated/Discontinued as Appropriate : Not applicable All Active Orders Reviewed : Yes Dhara Kelly RN - 06/01/2020 4:04 EST documented in this encounter Plan of Treatment Not on file documented as of this encounter Visit Diagnoses Not on filedocumented in this encounter
--- OUTSIDE RECORDS SUMMARY | 2025-02-23 12:36 | XMS_ITS | Encounter Summary ---
Author Organization [employer] ([place], [place], [place], [place]) Address [address] [place] [address] Care Team Providers Care Kitchen Porter Name Role Phone Unavailable Primary Care Provider Unavailabl e Encounter Details Date Type Department Care Team (Late st Contact Info) Description 05/31/2020 Transcribed Document [facility] [place] Medicine [address] [place] [address] ProviderNuha MD [address] [place] [address] Social History Tobacco Use Types Packs/Day Years Used Date Smoking Tobacco: Never Assessed Comments Unknown Sex and Gender Information Value Date Recorded Sex Assigned at Not on file Legal Sex Female 2:42 PM CDT Gender Identity Not on file Sexual Orientation Not on file documented as of this encounter Miscellaneous Notes * Cerner Conversion Note - Historical ProviderMD - 05/31/2020 6:51 PM LANDSCAPE CREW MEMBER Patient: NATE KRAMER Age: 69 years Sex: Female : 1950 Associated Diagnoses: None Author: BHUPENDRA MARISCAL MD-PRO All data reassuring Exam looks good Nausea resolved Expected fecal incontinence-will improve with time and formed stools Ok for home tomorrow F/u with me 2 weeks or sooner prn Wound packing out tomorrow Wash with warm soapy water daily, pat dry. Do not repack. documented in this encounter Plan of Treatment Not on file documented as of this encounter Visit Diagnoses Not on filedocumented in this encounter
--- OUTSIDE RECORDS SUMMARY | 2025-02-23 12:36 | XMS_ITS | Encounter Summary ---
Author Organization [employer] ([place], [place], [place], [place]) Address [address] [place] [address] Care Team Providers Care Jewel Inserter Name Role Phone Unavailable Primary Care Provider Unavailabl e Encounter Details Date Type Department Care Team (Late st Contact Info) Description 12/22/2019 Transcribed Document [facility] Radiology [address] [place] [address] Nba Reno MD [address] [place] [address] Social History Tobacco Use Types Packs/Day Years Used Date Smoking Tobacco: Never Assessed Comments Unknown Sex and Gender Information Value Date Recorded Sex Assigned at Not on file Legal Sex Female 2:42 PM CDT Gender Identity Not on file Sexual Orientation Not on file documented as of this encounter Miscellaneous Notes * Cerner Conversion Note - Nba Reno MD - 12/22/2019 3:29 PM EDT Patient: NATE KRAMER Age: 69 Years Sex: Female : 1950 Chief Complaint colo-Vaginal fistula Primary Care Provider THAD CORTEZ MD-[facility] History of Present Illness Is an 61-year-old lady appears older than her stated age has multiple medical problems including multiple myeloma on chronic opiates for the past year or so 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 She is brought to the operating room earlier today by Dr. Bhupendra Sandhu with colon rectal surgery who performed low anterior resection with loop ileostomy and no fevers or chills this afternoon. No nausea vomiting. No diarrhea constipation. No dysuria or hematuria. Review of Systems Constitutional: [No fevers, chills, sweats] Eye: [No recent visual problems, eye discharge, eye pain, redness] HEENT: [No ear pain, nasal congestion, sore throat, voice changes] Respiratory: [No shortness of breath, cough, pain on breathing, sputum production] Cardiovascular: [No Chest pain, palpitations, syncope, shortness of breath while laying flat] Gastrointestinal: [No nausea, vomiting, diarrhea, constipation] colovafgnal fistula- ileostomy Genitourinary: [No hematuria, dysuria, incontinence, lesions on genitalia] Asher/Lymph: [Negative for bruising tendency, swollen lymph glands, nosebleeds, history of anticoagulation] Endocrine: [Negative for excessive thirst, excessive hunger, excessive urination, heat or cold intolerance] Musculoskeletal: [No back pain, neck pain, joint pain, muscle pain, decreased range of motion] Integumentary: [No rash, pruritus, abrasions, lesions] Neurologic: [No weakness, numbness, frequent headaches, tremors, blackouts] Psychiatric: [No anxiety, depression, mood changes, hallucinations] Vital Signs T: 36.3 ??C TMIN: 36.3 ??C TMAX: 37.2 ??C HR: 66(Monitored) RR: 40 BP: 112/57 SpO2: 100% HT: 158.75 cm WT: 66.82 kg BMI: 26.5 Oxygen Settings (Last) Oxygen Therapy Mode: Nasal cannula (12/22/19 11:30:00) Oxygen Flow Rate: 2 Liter/Min (12/22/19 11:30:00) Physical Exam General: [Alert and oriented, well nourished, no acute distress]. elederly Neurologic: [Awake, alert, and oriented X3, CN II-XII intact]. Eye: [PERRL, EOMI, normal conjuctiva]. HENT: [Normocephalic, clear tympanic membranes, normal hearing, moist oral mucosa, no scleral icterus, no sinus tenderness]. Neck: [Supple, non-tender, no carotid bruits, no JVD, no lymphadenopathy]. Lungs: [Clear to auscultation and percussion, non-labored respiration]. Heart: [Normal rate, regular rhythm, no murmur, gallop or edema]. Abdomen: [Soft, non-tender, non-distended, normal bowel sounds, no masses]. LAR ileostomny Musculoskeletal: [Normal range of motion and strength, no tenderness or swelling]. Skin: [Skin is warm, dry and pink, no rashes or lesions]. Psychiatric: [Cooperative, appropriate mood and affect]. chronic opiates Assessment/Plan colo- Vaginal fistula. -symptoms over the past year -ivf -LAR with ileostomy- december 21 Postoperative pain on chroni pain. opiates fentanyl path 25 q 3 day gabapentin 300 mg po bid oxycodone 10 mg po bid prn uses about 2 x a week acetaminophen 1000 q 6 hr ketoralac Multpile myeloma -oncologist in [facility] dvt prophylaxis- hepatrin 5000 q 8 hr full code. 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 she states plans 3-5 days postop. 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 Orders: albuterol-ipratropium, 3 mL, Nebulized Inhalation, Inh, RT_Q6H, PRN for Shortness of Breath, Routine, Start 12/22/19 14:28:00 EDT bisacodyl, 5 mg, Oral, EC Tab, Daily, PRN for Constipation, Routine, Start 12/22/19 14:28:00 EDT docusate, 100 mg, Oral, Cap, BID, Routine, Start 12/22/19 14:28:00 EDT polyethylene glycol 3350, 17 Gram, Oral, Powder, Daily, PRN for Constipation, Routine, Start 12/22/19 14:28:00 EDT Sodium Chloride 0.9% intravenous solution 1,000 mL, 1,000 mL, Bag Volume (mL) = 1,000, IntraVENous, Rate = 50 mL/Hr, start date 12/22/19 14:28:00 EDT, Routine, 1.72, m2 CBC w/ Auto Diff CMP Comprehensive Metabolic Panel Consult to Case Management Diabetes Education (Nursing) DVT VTE Prophylaxis Education Facility Protocol Incentive Spirometry (Nursing) Intake and Output May Shower Notify Provider Notify Provider Vital Signs NPO (immediate) OT Evaluation and Treatment Phosphorus Level PT Evaluation and Treatment PT/INR Prothrombin Time Pulse Oximetry Spot Check (Nursing) Respiratory Care Assessment Resuscitation Status Saline Lock Insert Sequential Compression Device Vital Signs Weight (Routine) VTE Prophylaxis - Medical Heparin 5,000 Units, SubCutaneous, Inj, Q8H, Routine, Start 12/23/19 10:44:00 EDT (BHUPENDRA MARISCAL) Sequential Compression Device Start: 12/22/19 14:28:00 EDT, Bilateral, Length: Knee High, While patient is in bed, Continuous Order (NBA RENO MD-INT) Problem List/Past Medical History Ongoing Allergic rhinitis Asthma Back pain Back problem//multiple fractures BBB (bundle branch block)//right Cataract//extraction Chronic diarrhea Dental disorder//bottom teeth extraction//stitches intact Difficulty walking//walker Dizziness Fistula//colon//bladder//vaginia GERD - Gastro-esophageal reflux disease History of obstructive sleep apnea Hypotension Multiple myeloma Restless legs syndrome Ribs, multiple fractures Sinusitis Skin cancer Sleep apnea//no machine Urinary tract infection//jul 2018 Historical No qualifying data Procedure/Surgical History left shoulder surgery (2014), skin cancer excision (2013), left knee replacement (2011), right knee replacement (2010), left wrist surgery//pins (2005), hysterectomy (1982), right breast lumpectomy (1981), tubal (1980), cyst on ovary (1978), D/C//miscarriage (1972), c/section, colonoscopy, kyphoplasty//x4, left elbow surgery//plates and screws. SN - Proc - Procedure: Colon Resection Low Anterior (12/22/19 08:20:04) SN - Proc - Procedure: Ileostomy (12/22/19 08:20:04) SN - Proc - Procedure: Cystoscopy Stent Insertion (12/22/19 08:20:04) Home Medications (24) Active albuterol-ipratropium 2.5 mg-0.5 mg/3 mL inhalation solution 3 mL, PRN, Nebulized Inhalation, Q8H aspirin 81 mg, Oral, At Bedtime buPROPion 150 mg/24 hours (XL) oral tablet, extended release 150 mg = 1 Tab, Oral, [id number] cyanocobalamin 2,500 mcg, Oral, Daily fentaNYL 25 mcg/hr transdermal film, extended release 25 mcg/Hr, Topical, [id number] Flonase 1 [place], Nasal, BID Florastor 250 mg oral capsule [...] Inhalation, BID ZyrTEC-D 5-120 mg, Oral, Daily Allergies meperidine (Hypotension) sulfa drugs [...] stroke. Father age 84 from heart disease Lab Results Test Name Test Result Date/Time Glucose Level 136 mg/dL (High) 12/22/2019 11:04 EDT Potassium POC 4.6 mmol/L 12/22/2019 06:55 EDT Glucose POC2 85 mg/dL 12/22/2019 07:34 EDT Hgb 11.4 g/dL 12/22/2019 11:04 EDT Hct 36.4 % 12/22/2019 11:04 EDT ABO/Rh (ECHO) A POS 12/22/2019 06:53 EDT Antibody Screen Negative ABSC 12/22/2019 06:53 EDT Additional Documentation Code Status Start: 12/22/19 14:28:00 EDT, Full Code, Continuous Order documented in this encounter Plan of Treatment Not on file documented as of this encounter Visit Diagnoses Not on filedocumented in this encounter
--- OUTSIDE RECORDS SUMMARY | 2025-02-23 12:36 | XMS_ITS | Encounter Summary ---
Author Organization [employer] ([place], [place], [place], [place]) Address [address] [place] [address] Care Team Providers Care Grinding Wheel Operator Name Role Phone Unavailable Primary Care Provider Unavailabl e Encounter Details Date Type Department Care Team (Late st Contact Info) Description 05/31/2020 Transcribed Document [facility] [place] [address] [place] [address] ProviderNuha MD [address] [place] [address] Social History Tobacco Use Types Packs/Day Years Used Date Smoking Tobacco: Never Assessed Comments Unknown Sex and Gender Information Value Date Recorded Sex Assigned at Not on file Legal Sex Female 2:42 PM CDT Gender Identity Not on file Sexual Orientation Not on file documented as of this encounter Miscellaneous Notes * Cerner Conversion Note - Nuha ProviderMD - 05/31/2020 9:18 AM INSIDE SALES ASSISTANT Stroke/Warfarin Instructions Entered On: 05/31/2020 9:18 EST Performed On: 05/31/2020 9:18 EST by Kay Shaffer RN Stroke/Warfarin Instructions Stroke/TIA Discharge Ins : Open Warfarin Discharge Ins : N/A Kay Shaffer RN - 05/31/2020 9:18 EST Stroke/TIA Discharge Instructions Individualized Stroke Risk Factors *Q : Hypertension/High blood pressure Stroke Education Handouts Given *Q : Yes Kay Shaffer RN - 05/31/2020 9:18 EST Stroke Education Materials Given-Grid Activation of EMS *Q : Verbalizes understanding Follow-up Care After Discharge *Q : Verbalizes understanding Medications prescribed at DC *Q : Verbalizes understanding Risk Factors for Stroke *Q : Verbalizes understanding Warning S&S of Stroke *Q : Verbalizes understanding Kay Shaffer RN - 05/31/2020 9:18 EST Stroke/TIA Signs/Symptoms to Report Immediately : Sudden onset difficulty speaking, Sudden onset difficulty understanding speech, Sudden onset change in vision, Sudden onset weakness particulary on one side of the body, Sudden onset numbness/tingling, Sudden severe headache, Sudden dizziness or trouble with gait, Call : EMS activation is crucial My LDL Level: : LDL Level No qualifying data available. Kay Shaffer RN - 05/31/2020 9:18 EST documented in this encounter Plan of Treatment Not on file documented as of this encounter Visit Diagnoses Not on filedocumented in this encounter
--- OUTSIDE RECORDS SUMMARY | 2025-02-23 12:36 | XMS_ITS | Encounter Summary ---
Author Organization [employer] ([place], [place], [place], [place]) Address [address] [place] [address] Care Team Providers Care Backpackers Manager Name Role Phone Unavailable Primary Care Provider Unavailabl e Encounter Details Date Type Department Care Team (Late st Contact Info) Description 12/27/2019 Transcribed Document [facility] [place] Family Medicine [address] [place] [address] ProviderNuha MD [address] [place] [address] Social History Tobacco Use Types Packs/Day Years Used Date Smoking Tobacco: Never Assessed Comments Unknown Sex and Gender Information Value Date Recorded Sex Assigned at Not on file Legal Sex Female 2:42 PM CDT Gender Identity Not on file Sexual Orientation Not on file documented as of this encounter Miscellaneous Notes * Cerner Conversion Note - Historical ProviderMD - 12/27/2019 5:00 PM CDT Chart Check - Review Order Profile Entered On: 12/27/2019 17:41 EDT Performed On: 12/27/2019 17:00 EDT by Collin Jackson, RN Chart Check Powerplans Initiated/Discontinued as Appropriate : Yes All Active Orders Reviewed : Yes Collin Jackson RN - 12/27/2019 17:41 EDT documented in this encounter Plan of Treatment Not on file documented as of this encounter Visit Diagnoses Not on filedocumented in this encounter
--- OUTSIDE RECORDS SUMMARY | 2025-02-23 12:36 | XMS_ITS | Encounter Summary ---
Author Organization [employer] ([place], [place], [place], [place]) Address [address] [place] [address] Care Team Providers Care Commercial Instructor Supervisor Name Role Phone Unavailable Primary Care Provider Unavailabl e Encounter Details Date Type Department Care Team (Late st Contact Info) Description 05/30/2020 Transcribed Document [facility] [place] [facility] [place] [address] ProviderNuha MD [address] [place] [address] Social History Tobacco Use Types Packs/Day Years Used Date Smoking Tobacco: Never Assessed Comments Unknown Sex and Gender Information Value Date Recorded Sex Assigned at Not on file Legal Sex Female 2:42 PM CDT Gender Identity Not on file Sexual Orientation Not on file documented as of this encounter Miscellaneous Notes * Cerner Conversion Note - Historical ProviderMD - 05/30/2020 7:02 AM MAT CUTTER Final Discharge Planning Entered On: 05/30/2020 7:02 EST Performed On: 05/30/2020 7:02 EST by REECE ROBLES, RN-Hosiery Mender Final Discharge Planning Discharge Arrangements : Patient Post-Acute Information Patient Name: NATE KRAMER Gender: Female : [birth year] Age: 69 Years No Post-Acute Placement(s) Listed No Post-Acute Service(s) Listed No Curaspan Referral(s) Listed Discharge To Care Management : Home/Residential/Long Term or Self Care -01 REECE ROBLES, RN-Hosiery Mender - 05/30/2020 7:02 EST documented in this encounter Plan of Treatment Not on file documented as of this encounter Visit Diagnoses Not on filedocumented in this encounter
--- OUTSIDE RECORDS SUMMARY | 2025-02-23 12:36 | XMS_ITS | Encounter Summary ---
Author Organization [employer] ([place], [place], [place], [place]) Address [address] [place] [address] Care Team Providers Care Raw Finish Mill Operator Name Role Phone Unavailable Primary Care Provider Unavailabl e Encounter Details Date Type Department Care Team (Late st Contact Info) Description 12/22/2019 Transcribed Document [facility] [place] Family Medicine [facility] [place] [address] ProviderNuha MD [address] [place] [address] Social History Tobacco Use Types [...] Nuha ProviderMD - 12/22/2019 2:28 PM CDT Education-(VTE) / (DVT) Entered On: 12/22/2019 19:57 EDT Performed On: 12/22/2019 20:00 EDT by Kavita Burrell Lpn Teaching/Learning Assessment Barriers To Learning : None evident Individuals Taught : Patient Baseline Knowledge of Topic : Limited Readiness to Learn : Explanation Kavita Burrell Lpn - 12/22/2019 19:56 EDT Education Topics: VTE/DVT Education Topics: VTE/DVT Activity Limitations/Expectations : Verbalizes understanding Antiembolic hose : Verbalizes understanding VTE/DVT prophylaxis : Verbalizes understanding Foot Pumps : Verbalizes understanding Medications : Verbalizes understanding Sequential Compression Device : Verbalizes understanding Smoking Cessation : Verbalizes understanding Risk for developing a VTE : Verbalizes understanding Signs and symptoms of a VTE : Verbalizes understanding Treatment/prophylaxis for VTE : Verbalizes understanding Encourage early ambulation : Verbalizes understanding VTE/DVT, Other : Verbalizes understanding Kavita Burrell Lpn - 12/22/2019 19:56 EDT Electronically signed by [facility], [facility] Conversion Kettle Cleaner Cerner at 11/05/2022 5:53 PM CDT documented in this encounter Plan of Treatment Not on file documented as of this encounter Visit Diagnoses Not on filedocumented in this encounter
--- OUTSIDE RECORDS SUMMARY | 2025-02-23 12:36 | XMS_ITS | Encounter Summary ---
Author Organization [employer] ([place], [place], [place], [place]) Address [address] [place] [address] Care Team Providers Care Audiovisual Tech Name Role Phone Unavailable Primary Care Provider Unavailabl e Encounter Details Date Type Department Care Team (Late st Contact Info) Description 05/31/2020 Transcribed Document [facility] [place] [address] [place] [address] ProviderNuha MD [address] [place] [address] Social History Tobacco Use Types Packs/Day Years Used Date Smoking Tobacco: Never Assessed Comments Unknown Sex and Gender Information Value Date Recorded Sex Assigned at Not on file Legal Sex Female 2:42 PM CDT Gender Identity Not on file Sexual Orientation Not on file documented as of this encounter Miscellaneous Notes * Cerner Conversion Note - Historical ProviderMD - 05/31/2020 7:15 PM INTERNAL MEDICINE PHYSICIAN ASSISTANT Patient: NATE KRAMER Age: 69 Years Sex: Female : 1950 Subjective Pt reporting of headache, is concerned since she had stopped Fentanyl patch prior to surgery. Mild nausea but tolerating diet. Vital Signs T: 36.5 ??C TMIN: 36.2 ??C TMAX: 36.6 ??C HR: 82(Monitored) RR: 18 BP: 122/63 SpO2: 98% Oxygen Settings (Last) Oxygen Therapy Mode: Room air (05/31/20 11:55:00) Oxygen Flow Rate: 8 Liter/Min (05/30/20 14:40:00) Intake & Output Totals Last 24 Hours (7a-7a) Input Total: 586 mL Output Total: 200 mL Balance: 386 mL Physical Exam General: Alert and oriented, No [...] and Speech: Oriented, Speech clear and coherent. 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 -S/P Ileostomy reversal on 05/30/[address] Bhupendra Decker -encouraged ambulation -encouraged Incentive spirometer use -Pain control -tolerating diet Chronic Kidney disease stage 3 -evaluated by Nephrology Dr. Warner on 05/27/2020 -Recently had an RUSLAN and hyperkalemia that resolved -Cr 1.7 Hyponatremia -Appears chronic? -Will check urine Na and osmolality -Will further discuss with pt H/O Hyperkalemia -evaluated by Nephrology in December 2019 and more recently on 05/27/2020 -Current K+ 4.8 Chronic Pain -History of back pain and multiple fractures -Restarted fentanyl patch -Oxycodone PRN and Gabapentin CURT -On Ferrous Sulfate GERD -Continue Protonix RLS -Continue Ropinorole H/O UTI's -Continue methenamine Dispo: Per surgery likely DC home tomorrow, wound packing out tomorrow VTE Prophylaxis - Medical Heparin 5,000 Units, SubCutaneous, Inj, Q8H, Routine, Start 05/31/20 14:43:00 EST (BHUPENDRA DECKER) Sequential Compression Device Start: 05/30/20 12:41:00 EST, Bilateral, Continuous Order (BHUPENDRA DEKCER) Medications acetaminophen, 1000 mg= 2 Tab, Oral, Q6H cloNIDine 50 mcg + dexAMETHasone 4 mg + bupivacaine 0.25% injectable solution 28.35 mL + EPINEPHrin cloNIDine 50 mcg + dexAMETHasone 4 mg + bupivacaine 0.25% injectable solution 28.35 mL + EPINEPHrin diazePAM, 5 mg= 1 Tab, Oral, Q6H, PRN fentaNYL 12 mcg/hr transdermal film, extended release, 1 Patch, TransDermal, [id number] fentaNYL 25 mcg/hr transdermal film, extended release, 1 Patch, TransDermal, [id number] Fioricet, 1 Tab, Oral, Q4H, PRN gabapentin, 600 mg= 2 Cap, Oral, TID heparin, 5000 Units= 1 mL, SubCutaneous, Q8H Magic Mouthwash, 5 mL, Swish and Spit, Q6H, PRN methenamine hippurate 1 g oral tablet, 0.5 Gram= 0.5 Tab, Oral, BID, PRN midazolam, 1 mg= 1 mL, IV Push, Q10Min, PRN morphine, 2 mg= 1 mL, IV Push, Q2H, PRN Mucinex, 1200 mg= 2 Tab, Oral, Q12H, PRN ondansetron, 4 mg= 2 mL, IV Push, Q6H, PRN oxyCODONE, 10 mg= 2 Tab, Oral, Q6H, PRN pantoprazole, 40 mg= 1 Tab, Oral, Daily Proventil HFA, 1 Puff, Inhalation, Q4H, PRN rOPINIRole, 0.25 mg= 1 Tab, Oral, At Bedtime Wellbutrin XL, 150 mg= 1 Tab, Oral, Daily Lab Results Test Name Test Result Date/Time Sodium Level 129 mmol/L (Low) 05/31/2020 07:17 EST Potassium Level 4.8 mmol/L 05/31/2020 07:17 EST Chloride Level 100 mmol/L (Low) 05/31/2020 07:17 EST Carbon Dioxide Level 20 mmol/L (Low) 05/31/2020 07:17 EST Anion Gap 14 05/31/2020 07:17 EST Glucose Level 105 mg/dL 05/31/2020 07:17 EST Blood Urea Nitrogen 27 mg/dL (High) 05/31/2020 07:17 EST Creatinine Level 1.70 mg/dL (High) 05/31/2020 07:17 EST eGFR 36 mL/min/1.73m2 (Low) 05/31/2020 07:17 EST eGFR NonAfrican 30 mL/min/1.73m2 (Low) 05/31/2020 07:17 EST Bun/Creatinine 15.9 05/31/2020 07:17 EST Calcium Level 8.8 mg/dL 05/31/2020 07:17 EST Magnesium Level 2.0 mg/dL 05/31/2020 07:17 EST Device Comment 1 Protocols Followed 05/31/2020 11:02 EST Device Comment 1 Notified Nurse RBV 05/31/2020 05:59 EST Device Comment 1 Notified Nurse RBV 05/30/2020 20:33 EST Device Comment 2 Notified Nurse RBV 05/31/2020 11:02 EST Glucose POC2 89 mg/dL 05/31/2020 15:46 EST Glucose POC2 103 mg/dL 05/31/2020 11:02 EST Glucose POC2 101 mg/dL 05/31/2020 05:59 EST Glucose POC2 112 mg/dL (High) 05/30/2020 20:33 EST WBC 12.7 K/uL (High) 05/31/2020 07:17 EST RBC 4.73 Million/uL 05/31/2020 07:17 EST Hgb 13.7 g/dL 05/31/2020 07:17 EST Hct 43.0 % 05/31/2020 07:17 EST MCV 90.9 fL 05/31/2020 07:17 EST MCH 29.0 pg 05/31/2020 07:17 EST MCHC 31.9 Gram/dL (Low) 05/31/2020 07:17 EST Platelet Count 308 K/uL 05/31/2020 07:17 EST MPV 9.0 fL (Low) 05/31/2020 07:17 EST RDW 14.2 % 05/31/2020 07:17 EST Slide Review No 05/31/2020 07:17 EST Electronically signed by [facility], [facility] Conversion Under Seal Operator Cerner at 11/05/2022 6:09 PM CDT documented in this encounter Plan of Treatment Not on file documented as of this encounter Visit Diagnoses Not on filedocumented in this encounter
--- OUTSIDE RECORDS SUMMARY | 2025-02-23 12:36 | XMS_ITS | Encounter Summary ---
Author Organization [employer] ([place], [place], [place], [place]) Address [address] [place] [address] Care Team Providers Care Parts Picker Name Role Phone Unavailable Primary Care Provider Unavailabl e Encounter Details Date Type Department Care Team (Late st Contact Info) Description 12/27/2019 Transcribed Document [facility] [place] [address] [place] [address] ProviderNuha MD [address] [id number] Social History Tobacco Use Types Packs/Day Years Used Date Smoking Tobacco: Never Assessed Comments Unknown Sex and Gender Information Value Date Recorded Sex Assigned at Not on file Legal Sex Female 2:42 PM CDT Gender Identity Not on file Sexual Orientation Not on file documented as of this encounter Miscellaneous Notes * Cerner Conversion Note - Historical ProviderMD - 12/27/2019 10:21 AM CDT Patient: NATE KRAMER Age: 69 years Sex: Female : 1950 Associated Diagnoses: None Author: BHUPENDRA MARISCAL MD-PRO Seen and examined. Chart data reviewed. Discussed with Dr. SEBASTIAN. Overall doing well. Some leakage from stoma appliance and carballo. Labs and vitals and exam reassuring. Drain serosang and low output. Will d/c carballo and ree. Reassess for home tomorrow if ostomy appliance secure. Antimicorbial plan per ID. documented in this encounter Plan of Treatment Not on file documented as of this encounter Visit Diagnoses Not on filedocumented in this encounter
--- OUTSIDE RECORDS SUMMARY | 2025-02-23 12:36 | XMS_ITS | Encounter Summary ---
Author Organization [employer] ([place], [place], [place], [place]) Address [address] [place] [address] Care Team Providers Care Yarn Texturing Machine Operator Name Role Phone Unavailable Primary Care Provider Unavailabl e Encounter Details Date Type Department Care Team (Late st Contact Info) Description 05/31/2020 Transcribed Document [facility] [place] [address] [place] [address] ProviderNuha MD [address] [place] [address] Social History Tobacco Use Types Packs/Day Years Used Date Smoking Tobacco: Never Assessed Comments Unknown Sex and Gender Information Value Date Recorded Sex Assigned at Not on file Legal Sex Female 2:42 PM CDT Gender Identity Not on file Sexual Orientation Not on file documented as of this encounter Miscellaneous Notes * Cerner Conversion Note - Historical ProviderMD - 05/31/2020 5:00 AM ICU RN Chart Check - Review Order Profile Entered On: 05/31/2020 4:24 EST Performed On: 05/31/2020 5:00 EST by Dhara Kelly RN Chart Check Powerplans Initiated/Discontinued as Appropriate : Not applicable All Active Orders Reviewed : Yes Dhara Kelly RN - 05/31/2020 4:24 EST documented in this encounter Plan of Treatment Not on file documented as of this encounter Visit Diagnoses Not on filedocumented in this encounter
--- OUTSIDE RECORDS SUMMARY | 2025-02-23 12:36 | XMS_ITS | Encounter Summary ---
Author Organization [employer] ([place], [place], [place], [place]) Address [address] [place] [address] Care Team Providers Care Sash Finisher Name Role Phone Unavailable Primary Care Provider Unavailabl e Encounter Details Date Type Department Care Team (Late st Contact Info) Description 12/28/2019 Transcribed Document [facility] [place] [address] [place] [address] ProviderNuha MD [address] [place] [address] Social History Tobacco Use Types [...] Historical ProviderMD - 12/28/2019 2:36 PM CDT Nursing Discharge Summary Entered On: 12/28/2019 14:36 EDT Performed On: 12/28/2019 14:36 EDT by Ambar Rai RN Discharge Documentation Discharge Date/Time : 12/28/2019 14:36 EDT Patient Disposition, General : Discharge, Discharge To : Home with ambulatory/outpatient follow-up Mode Of Departure, General Discharge : Private vehicle Accompanied By, Discharge : Spouse IV Discontinued : Yes Personal Belongings With Patient : Yes Prescriptions Given to Patient : No Discharge Instructions Reviewed With, Opportunity For Questions Given : Patient Patient Education Completed : Yes Teaching Method : Explanation, Printed materials Teaching Evaluation : Verbalizes understanding Ambar Rai RN - 12/28/2019 14:36 EDT documented in this encounter Plan of Treatment Not on file documented as of this encounter Visit Diagnoses Not on filedocumented in this encounter
--- OUTSIDE RECORDS SUMMARY | 2025-02-23 12:36 | XMS_ITS | Encounter Summary ---
Author Organization [employer] ([place], [place], [place], [place]) Address [address] [place] [address] Care Team Providers Care Factory Representative Name Role Phone Unavailable Primary Care Provider Unavailabl e Encounter Details Date Type Department Care Team (Late st Contact Info) Description 05/31/2020 Transcribed Document [facility] [place] [address] [place] [address] ProviderNuha MD [address] [place] [address] Social History Tobacco Use Types Packs/Day Years Used Date Smoking Tobacco: Never Assessed Comments Unknown Sex and Gender Information Value Date Recorded Sex Assigned at Not on file Legal Sex Female 2:42 PM CDT Gender Identity Not on file Sexual Orientation Not on file documented as of this encounter Miscellaneous Notes * Cerner Conversion Note - Historical ProviderMD - 05/31/2020 6:00 PM VAMP MAKER Pain Assessment Entered On: 06/01/2020 0:51 EST Performed On: 05/31/2020 19:39 EST by Dhara Kelly RN Intervention Information: acetaminophen Performed by MICHELINE MENENDEZ RN on 05/31/2020 18:39:00 EST acetaminophen,1000mg Oral Pain Assessment Pain Assessment : Follow-up assessment Pain Scale Goal : 3 Pain Scale Used : 0-10 Scale Dhara Kelly RN - 06/01/2020 0:50 EST Pain Scale Intensity : 5 Dhara Kelly RN - 06/01/2020 0:50 EST Image 4 - Images currently included in the form version of this document have not been included in the text rendition version of the form. documented in this encounter Plan of Treatment Not on file documented as of this encounter Visit Diagnoses Not on filedocumented in this encounter
--- OUTSIDE RECORDS SUMMARY | 2025-02-23 12:36 | XMS_ITS | Encounter Summary ---
Author Organization [employer] ([place], [place], [place], [place]) Address [address] [place] [address] Care Team Providers Care Crew Chief Name Role Phone Unavailable Primary Care Provider Unavailabl e Encounter Details Date Type Department Care Team (Late st Contact Info) Description 12/26/2019 Transcribed Document [facility] [place] [address] [place] [address] ProviderNuha MD [address] [place] [address] Social History Tobacco Use Types Packs/Day Years Used Date Smoking Tobacco: Never Assessed Comments Unknown Sex and Gender Information Value Date Recorded Sex Assigned at Not on file Legal Sex Female 2:42 PM CDT Gender Identity Not on file Sexual Orientation Not on file documented as of this encounter Miscellaneous Notes * Cerner Conversion Note - Historical ProviderMD - 12/26/2019 2:00 AM CDT Mixing Machine Tender Cork Rod Details Entered On: 12/26/2019 2:08 EDT Performed On: 12/26/2019 2:00 EDT by JOHANNY HAMPTON RN Order Details Transport Mode Order Detail : Wheelchair Isolation Precautions Order Detail : Standard Precautions Order Detail : 0 Lift/Transfer : Moderate assist Central Line Order Detail : Yes Room Service : Not Appropriate Arterial Line : No JOHANNY HAMPTON RN - 12/26/2019 2:08 EDT Electronically signed by Renay Ribera Conversion Observer Electrical Prospecting Cerhéctor at 11/05/2022 5:56 PM CDT documented in this encounter Plan of Treatment Not on file documented as of this encounter Visit Diagnoses Not on filedocumented in this encounter
--- OUTSIDE RECORDS SUMMARY | 2025-02-23 12:36 | XMS_ITS | Encounter Summary ---
Author Organization [employer] ([place], [place], [place], [place]) Address [address] [place] [address] Care Team Providers Care Appliance Mechanic Name Role Phone Unavailable Primary Care Provider Unavailabl e Encounter Details Date Type Department Care Team (Late st Contact Info) Description 12/25/2019 Transcribed Document [facility] [place] Family [place] [address] [place] [address] ProviderNuha MD [address] [place] [address] Social History Tobacco Use Types Packs/Day Years Used Date Smoking Tobacco: Never Assessed Comments Unknown Sex and Gender Information Value Date Recorded Sex Assigned at Not on file Legal Sex Female 2:42 PM CDT Gender Identity Not on file Sexual Orientation Not on file documented as of this encounter Miscellaneous Notes * Cerner Conversion Note - Historical ProviderMD - 12/25/2019 2:00 AM CDT Tool And Die Maker Level Five Details Entered On: 12/25/2019 1:12 EDT Performed On: 12/25/2019 2:00 EDT by Kavita Burrell Lpn Order [...] Line : No Kavita Burrell Lpn - 12/25/2019 1:12 EDT documented in this encounter Plan of Treatment Not on file documented as of this encounter Visit Diagnoses Not on filedocumented in this encounter
--- OUTSIDE RECORDS SUMMARY | 2025-02-23 12:36 | XMS_ITS | Encounter Summary ---
Author Organization [employer] ([place], [place], [place], [place]) Address [address] [place] [address] Care Team Providers Care Pari Mutuel Ticket Seller Name Role Phone Unavailable Primary Care Provider Unavailabl e Encounter Details Date Type Department Care Team (Late st Contact Info) Description 12/25/2019 Transcribed Document [facility] Radiology [address] [place] [address] Nba Delcid MD [address] [place] [address] Social History Tobacco Use Types Packs/Day Years Used Date Smoking Tobacco: Never Assessed Comments Unknown Sex and Gender Information Value Date Recorded Sex Assigned at Not on file Legal Sex Female 2:42 PM CDT Gender Identity Not on file Sexual Orientation Not on file documented as of this encounter Miscellaneous Notes * Cerner Conversion Note - Nba Delcid MD - 12/25/2019 10:20 AM EDT Patient: NATE KRAMER Age: 69 [...] on fentanyl patches at least 3 years. Wednesday, December 25, 2019. Patient tolerating oral intake soft diet she states she had her lower teeth removed but with appropriate treatment for the surgery. She states her stool soft good stool outputout ofher right-sided ileostomy. No fevers or chills. No chest pain palpitations no dysuria or hematuria. I did tell her that the wound culture showed Klebsiella and that we started her on naproxen consult infectious disease. Review of Systems Constitutional: Decreased activity, No [...] list: Medical Allergic rhinitis / SNOMED CT 052934870 / Confirmed Asthma / SNOMED CT 406597696 / Confirmed Back pain / SNOMED CT 3450021482 / Confirmed Back problem//multiple fractures / SNOMED CT 730567079 / Confirmed BBB (bundle branch block)//right / SNOMED CT 68438173 / Confirmed Cataract//extraction / SNOMED CT 026849679 / Confirmed Chronic diarrhea / SNOMED CT 436011727 / Confirmed Difficulty walking//walker / SNOMED CT 7808192678 / Confirmed Dental disorder//bottom teeth extraction//stitches intact / SNOMED CT 8610742610 / Confirmed Dizziness / SNOMED CT 0880703650 / Confirmed Fistula//colon//bladder//vaginia / SNOMED CT 4272460737 / Confirmed Ribs, multiple fractures / SNOMED CT 1134718 / Confirmed GERD - Gastro-esophageal reflux disease / SNOMED CT 8661885674 / Confirmed History of obstructive sleep apnea / IMO 56453833 / Confirmed Hypotension / SNOMED CT 315791136 / Confirmed Skin cancer / SNOMED CT 4001114205 / Confirmed Multiple myeloma / SNOMED CT 915277864 / Confirmed Restless legs syndrome / SNOMED CT 65297117 / Confirmed Sinusitis / SNOMED CT 24657513 / Confirmed Sleep apnea//no machine / SNOMED CT 676242379 / Confirmed Urinary tract infection//jul 2018 / SNOMED CT 511594729 / Confirmed, Active Problems (21) Allergic rhinitis [...] Nebulized Inhalation, RT_Q6H, PRN: Shortness of Breath EPINEPHrine: 0.3 mg, IntraMuscular, On-CALL, PRN: Anaphylaxis Flonase: 1 [place], Nasal, BID Florastor: 250 mg, Oral, Daily, PRN: Loose Stool Lidoderm 5% topical film: 1 Patch, TransDermal, Daily Merrem + Sodium Chloride 0.9% intravenous solution 50 mL: 500 mg, 16.67 mL/Hr, IV Piggyback, Q8HInt MiraLax: 17 Gram, Oral, Daily, PRN: Constipation Sodium Chloride 0.9% intravenous solution 1,000 mL: 50 mL/Hr, IntraVENous Wellbutrin XL: 150 mg, Oral, Daily aspirin: 81 mg, Oral, At Bedtime cyanocobalamin: 1,000 mcg, Oral, Daily diazePAM: 5 mg, Oral, Q6H, PRN: Other (See Comment) diphenhydrAMINE: 50 mg, IV Push, On-CALL fentaNYL 25 mcg/hr transdermal film, extended release: 1 Patch, Topical, [id number] folic acid: 1 mg, Oral, Daily gabapentin: [...] Oral, Daily Documented Medications Documented Flonase: 1 [place], Nasal, BID, 0 Refill(s) Florastor 250 mg [...] oral tablet, extended release: 1 Tab, Oral, [id number], 0 Refill(s) cyanocobalamin: 2,500 mcg, Oral, Daily, 0 Refill(s) fentaNYL 25 mcg/hr transdermal film, extended release: 25 mcg/Hr, Topical, [id number], 0 Refill(s) furosemide: 20 mg, Oral, At [...] release 150 mg = 1 Tab, Oral, [id number] cyanocobalamin 2,500 mcg, Oral, Daily fentaNYL 25 mcg/hr transdermal film, extended release 25 mcg/Hr, Topical, [id number] Flonase 1 [place], Nasal, BID Florastor 250 mg oral capsule [...] ZyrTEC-D 5-120 mg, Oral, Daily , Medications (27) Active Scheduled: (16) aspirin 81 mg chew tab 81 mg 1 Tab, Oral, At Bedtime buPROPion XL 150 mg tab 150 mg 1 Tab, Oral, Daily cyanocobalamin 1,000 mcg tab 1,000 mcg 1 Tab, Oral, Daily diphenhydrAMINE 50 mg/1 mL inj 50 mg 1 mL, IV Push, On-CALL docusate sodium 100 mg cap 100 mg 1 Cap, Oral, BID fentaNYL 25 mcg/hr 72 hr patch 1 Patch, Topical, [id number] fluticasone 0.05% nasal spray 1 [place], Nasal, BID folic acid 1 mg tab 1 mg 1 Tab, Oral, Daily gabapentin 300 mg cap 300 mg 1 Cap, Oral, BID heparin 5,000 units/1 mL inj 5,000 Units 1 mL, SubCutaneous, Q8H lidocaine 4% patch 1 Patch, TransDermal, Daily loperamide 2 mg cap 2 mg 1 Cap, Oral, BID magnesium oxide 400 mg tab 400 mg 1 Tab, Oral, BID meropenem + NaCl 0.9% 50 mL 500 mg, IV Piggyback, Q8HInt mometasone/formoterol 200/5 mcg inh 2 Puff, Inhalation, BID pantoprazole EC 40 mg tab 40 mg 1 Tab, Oral, Daily Continuous: (1) NaCl 0.9% 1,000 mL 1,000 mL, IntraVENous, 50 mL/Hr PRN: (10) albuterol-ipratropium inh 3 mL 3 mL, Nebulized Inhalation, RT_Q6H bisacodyl EC 5 mg tab 5 mg 1 Tab, Oral, Daily diazepam 5 mg tab 5 mg 1 Tab, Oral, Q6H EPINEPHrine 1 mg/1 mL inj 0.3 mg 0.3 mL, IntraMuscular, On-CALL morphine 2 mg/1 ml inj 2 mg [...] 24 hrs) Last Charted Minimum Maximum Temp 98.3 (DEC 24 12:00) 97.9 (DEC 23 18:00) 98.8 (DEC 23 15:20) Mon HR 85 (DEC 24 12:00) 74 (DEC 24 03:15) 121 (DEC 23 22:40) Resp Rate 18 (DEC 24 08:43) 14 (DEC 23 15:20) 18 (DEC 24 06:00) SBP 114 (DEC 24 12:00) 108 (DEC 24 06:00) 131 (DEC 23 22:40) DBP L 46 (DEC 24 12:00) L 41 (DEC 24 06:00) H 98 (DEC 23 22:40) MAP 64 (DEC 24 12:00) 57 (DEC 24 06:00) 103 (DEC 23 22:40) SpO2 98 (DEC 24 08:43) 98 (DEC 23 15:20) 99 (DEC 24 06:00) Physical Examination VS/Measurements Vitals Signs (last 24 hrs) Last Charted Minimum Maximum Temp 98.3 (DEC 24 12:00) 97.9 (DEC 23 18:00) 98.8 (DEC 23 15:20) Mon HR 85 (DEC 24 12:00) 74 (DEC 24 03:15) 121 (DEC 23 22:40) Resp Rate 18 (DEC 24 08:43) 14 (DEC 23 15:20) 18 (DEC 24 06:00) SBP 114 (DEC 24 12:00) 108 (DEC 24 06:00) 131 (DEC 23 22:40) DBP L 46 (DEC 24 12:00) L 41 (DEC 24 06:00) H 98 (DEC 23 22:40) MAP 64 (DEC 24 12:00) 57 (DEC 24 06:00) 103 (DEC 23 22:40) SpO2 98 (DEC 24 08:43) 98 (DEC 23 15:20) 99 (DEC 24 06:00) General: Alert and oriented, No acute distress. [...] review: Labs (Last four charted values) WBC 6.9 (DEC 24) 7.2 (DEC 23) H 11.8 (DEC 22) 8.6 (DECEMBER 17) HB L 9.4 (DEC 05) L 9.4 (DEC 23) L 8.4 (DEC 23) L 10.0 (DEC 22) HCT L 30.2 (DEC 05) L 29.9 (CAMACHO 04) L 26.4 (CAMACHO 04) L 31.8 (CAMACHO 03) Plt 267 (CAMACHO 05) 208 (CAMACHO 04) 290 (DEC 03) 318 (DECEMBER 17) Na 141 (CAMACHO 05) L 133 (CAMACHO 04) L 132 (CAMACHO 03) L 132 (CAMACHO 03) K 4.0 (CAMACHO 05) 4.2 (CAMACHO 05) 4.4 (CAMACHO 05) 4.6 (CAMACHO 04) Cl 110 (CAMACHO 05) 104 (CAMACHO 04) L 101 (CAMACHO 03) 102 (CAMACHO 03) CO2 24 (CAMACHO 05) 22 (CAMACHO 04) 21 (CAMACHO 03) 24 (DEC 03) BUN 11 (CAMACHO 05) 15 (CAMACHO 04) 15 (DEC 03) 14 (DEC 03) Cr H 1.60 (CAMACHO 05) H 2.00 (CAMACHO 04) H 2.30 (CAMACHO 03) H 2.30 (DEC 03) Glu R 83 (CAMACHO 05) 87 (CAMACHO 04) 99 (DEC 03) 106 (DEC 03) Ca L 8.3 (CAMACHO 05) L 7.9 (CAMACHO 04) 8.6 (CAMACHO 03) 8.4 (DEC 03) PT 10.1 (DEC 03) INR 1.0 (DEC 03) AST 15 (DEC 05) 18 (CAMACHO 04) 29 (DEC 03) 19 (DECEMBER 17) ALT 17 (DEC 05) 18 (DEC 04) 22 (DEC 03) 17 (DECEMBER 17) ALK P 122 (CAMACHO 05) 106 (CAMACHO 04) 115 (CAMACHO 03) H 166 (DECEMBER 17) T Bili 0.2 (CAMACHO 05) 0.2 (CAMACHO 04) 0.6 (DEC 03) 0.4 (DECEMBER 17) PTN L 5.3 (CAMACHO 05) L 4.7 (CAMACHO 04) L 5.0 (CAMACHO 03) 6.7 (DECEMBER 17) ALB L 2.3 (CAMACHO 05) L 2.0 (CAMACHO 04) L 2.2 (CAMACHO 03) L 3.0 (DECEMBER 17) . Impression and Plan colo- Vaginal fistula. -symptoms over the past year -ivf -LAR with ileostomy- december 21 Postoperative pain on chroni pain. opiates fentanyl path 25 q 3 day gabapentin 300 mg po bid oxycodone 10 mg po bid prn uses about 2 x a week acetaminophen 1000 q 6 hr ketoralac Pelvic abscess abdominal abscess . Klebsiella pneumonia ESBL positive wound culture -IV Merrem -WBC of 11 down to 7 down to 6.9 [facility] infectious disease consultation Acute renal failure postoperative. Creatinine 1.4 increased to 2.3. to 2.0 to 1.6 IV fluids. Renal consult. sees dr wray as outpatient Hyper kalemia. Hypokalemia 2.2 increased to 5.8. to 4.6 Serial checks Multpile myeloma -oncologist in [facility] dvt prophylaxis- hepatrin 5000 q 8 hr [...] pneumonia started Merrem and consulted infectious disease. [employer] dictation system used. Computer program makes numerous spelling grammar mistakes. If you have any questions or concerns do not hesitate call Dr. Nba Garcia at cell phone number [phone]. documented in this encounter Plan of Treatment Not on file documented as of this encounter Visit Diagnoses Not on filedocumented in this encounter
--- OUTSIDE RECORDS SUMMARY | 2025-02-23 12:36 | XMS_ITS | Encounter Summary ---
Author Organization [employer] ([place], [place], [place], [place]) Address [address] [place] [address] Care Team Providers Care Non Profit Financial Controller Name Role Phone Unavailable Primary Care Provider Unavailabl e Encounter Details Date Type Department Care Team (Late st Contact Info) Description 12/27/2019 Transcribed Document [facility] Radiology [address] [place] [address] Milan Alvarado MD [address] [place] [address] [address] [place] [address] Social History Tobacco Use Types Packs/Day Years Used Date Smoking Tobacco: Never Assessed Comments Unknown Sex and Gender Information Value Date Recorded Sex Assigned at Not on file Legal Sex Female 2:42 PM CDT Gender Identity Not on file Sexual Orientation Not on file documented as of this encounter Miscellaneous Notes * Cerner Conversion Note - Milan Alvarado MD - 12/27/2019 12:59 PM EDT Patient: NATE KRAMER Age: 69 years Sex: Female : 1950 Associated Diagnoses: None Author: MILAN ALVARADO MD-NEP Basic Information Patient is feeling much better, she has good appetite at this point, ostomy output has some consistency to it Health Status Allergies: Allergic Reactions (Selected) Severity Not Documented Meperidine- Hypotension. Sulfa drugs- Hives. Current medications: (Selected) Inpatient Medications Ordered Cipro: 500 mg, Oral, Q12H Colace: 100 mg, Oral, BID Dulcolax Laxative: 5 mg, Oral, Daily, PRN: Constipation Dulera 200 mcg-5 mcg/inh inhalation aerosol: 2 Puff, Inhalation, BID DuoNeb 0.5 mg-2.5 mg/3 mL inhalation solution: 3 mL, Nebulized Inhalation, RT_Q6H, PRN: Shortness of Breath Flagyl: 500 mg, Oral, BID Flonase: 1 [place], Nasal, BID Florastor: 250 mg, Oral, Daily, PRN: Loose Stool INVanz: 1 Gram, 100 mL/Hr, IV Piggyback, [id number] Lidoderm 5% topical film: 1 Patch, TransDermal, Daily MiraLax: 17 Gram, Oral, Daily, PRN: Constipation Wellbutrin XL: 150 mg, Oral, Daily aspirin: 81 mg, Oral, At Bedtime cyanocobalamin: 1,000 mcg, Oral, Daily diazePAM: 5 mg, Oral, Q6H, PRN: Other (See Comment) diphenhydrAMINE: 50 mg, IV Push, On-CALL fentaNYL 25 mcg/hr transdermal film, extended release: 1 Patch, Topical, [id number] folic acid: 1 mg, Oral, Daily gabapentin: [...] Oral, Daily Documented Medications Documented Flonase: 1 [place], Nasal, BID, 0 Refill(s) Florastor 250 mg [...] oral tablet, extended release: 1 Tab, Oral, [id number], 0 Refill(s) cyanocobalamin: 2,500 mcg, Oral, Daily, 0 Refill(s) fentaNYL 25 mcg/hr transdermal film, extended release: 25 mcg/Hr, Topical, [id number], 0 Refill(s) furosemide: 20 mg, Oral, At [...] mg, Oral, BID, 0 Refill(s) Problem list: Medical Allergic rhinitis / SNOMED CT 695912909 / Confirmed Asthma / SNOMED CT 008167366 / Confirmed Back pain / SNOMED CT 2870913441 / Confirmed Back problem//multiple fractures / SNOMED CT 050472261 / Confirmed BBB (bundle branch block)//right / SNOMED CT 40253092 / Confirmed Cataract//extraction / SNOMED CT 880646027 / Confirmed Chronic diarrhea / SNOMED CT 704418597 / Confirmed Difficulty walking//walker / SNOMED CT 2920267771 / Confirmed Dental disorder//bottom teeth extraction//stitches intact / SNOMED CT 7849775916 / Confirmed Dizziness / SNOMED CT 3618527707 / Confirmed Fistula//colon//bladder//vaginia / SNOMED CT 9758660167 / Confirmed Ribs, multiple fractures / SNOMED CT 8834811 / Confirmed GERD - Gastro-esophageal reflux disease / SNOMED CT 1484417121 / Confirmed History of obstructive sleep apnea / IMO 27355180 / Confirmed Hypotension / SNOMED CT 112435921 / Confirmed Skin cancer / SNOMED CT 6562076021 / Confirmed Multiple myeloma / SNOMED CT 852585467 / Confirmed Restless legs syndrome / SNOMED CT 16368115 / Confirmed Sinusitis / SNOMED CT 92666733 / Confirmed Sleep apnea//no machine / SNOMED CT 074342948 / Confirmed Urinary tract infection//jul 2018 / SNOMED CT 379115316 / Confirmed Histories Social History Social & Psychosocial Habits Alcohol [...] Last Charted Minimum Maximum Temp 98.2 (DEC 26 06:45) 97.9 (DEC 26 03:00) 98.2 (DEC 25 14:45) Mon HR 79 (DEC 26 08:30) 78 (DEC 26 03:28) 91 (DEC 25 20:51) Resp Rate 18 (DEC 26 08:30) 16 (DEC 25 22:45) 18 (DEC 25 20:51) SBP 111 (DEC 26 06:45) 99 (DEC 26 03:00) 111 (DEC 26 06:45) DBP L 43 (DEC 26 06:45) L 41 (DEC 26 03:28) 64 (DEC 25 22:45) MAP 59 (DEC 26 06:45) 58 (DEC 26 03:28) 73 (DEC 25 22:45) SpO2 98 (DEC 26 08:30) 96 (DEC 25 20:51) 98 (DEC 25 22:45) General: Alert and oriented, No acute distress. [...] charted values) WBC 9.2 (DEC 06) 6.9 (DEC 05) 7.2 (DEC 04) H 11.8 (DEC 03) HB L 10.0 (DEC 06) L 9.4 (DEC 05) L 9.4 (DEC 04) L 8.4 (DEC 04) HCT L 31.5 (DEC 06) L 30.2 (CAMACHO 05) L 29.9 (CAMACHO 04) L 26.4 (CAMACHO 04) Plt 279 (DEC 06) 267 (CAMACHO 05) 208 (CAMACHO 04) 290 (DEC 03) Na 137 (DEC 07) 138 (DEC 06) 141 (CAMACHO 05) L 133 (CAMACHO 04) K 3.8 (CAMACHO 07) 4.0 (CAMACHO 07) 4.0 (CAMACHO 06) 4.0 (CAMACHO 06) Cl 106 (DEC 07) 107 (CAMACHO 06) 110 (CAMACHO 05) 104 (CAMACHO 04) CO2 27 (DEC 07) 24 (DEC 06) 24 (DEC 05) 22 (DEC 04) BUN 8 (DEC 07) 9 (DEC 06) 11 (DEC 05) 15 (DEC 04) Cr H 1.30 (CAMACHO 07) H 1.40 (CAMACHO 06) H 1.60 (CAMACHO 05) H 2.00 (CAMACHO 04) Glu R 94 (CAMACHO 07) 91 (CAMACHO 06) 83 (CAMACHO 05) 87 (DEC 04) Ca 8.7 (DEC 07) 8.5 (DEC 06) L 8.3 (DEC 05) L 7.9 (DEC 04) PT 10.1 (DEC 03) INR 1.0 (DEC 03) AST 16 (DEC 06) 15 (DEC 05) 18 (DEC 04) 29 (DEC 03) ALT 18 (DEC 06) 17 (DEC 05) 18 (DEC 23) 22 (DEC 03) ALK P H 151 (DEC 06) 122 (CAMACHO 05) 106 (DEC 04) 115 (DEC 03) T Bili 0.7 (DEC 06) 0.2 (DEC 05) 0.2 (DEC 04) 0.6 (DEC 03) PTN L 5.3 (DEC 06) L 5.3 (CAMACHO 05) L 4.7 (CAMACHO 04) L 5.0 (CAMACHO 03) ALB L 2.1 (DEC 06) L 2.3 (CAMACHO 05) L 2.0 (DEC 04) L 2.2 (DEC 03) . Impression and Plan 1. Chronic kidney disease stage III . cr at baseline. 2. Acute kidney injury: related to volume contraction. resolved 3. Hyperkalemia. resolved. pt is at risk for hypokalemia 4. Anemia of chronic disease. Acceptable Hgb documented in this encounter Plan of Treatment Not on file documented as of this encounter Visit Diagnoses Not on filedocumented in this encounter
--- OUTSIDE RECORDS SUMMARY | 2025-02-23 12:36 | XMS_ITS | Encounter Summary ---
Author Organization [employer] ([place], [place], [place], [place]) Address [address] [place] [address] Care Team Providers Care Rn Heart Name Role Phone Unavailable Primary Care Provider Unavailabl e Encounter Details Date Type Department Care Team (Late st Contact Info) Description 12/25/2019 Transcribed Document [facility] [address] [place] [address] ProviderNuha MD [address] [place] [address] Social History Tobacco Use Types Packs/Day Years Used Date Smoking Tobacco: Never Assessed Comments Unknown Sex and Gender Information Value Date Recorded Sex Assigned at Not on file Legal Sex Female 2:42 PM CDT Gender Identity Not on file Sexual Orientation Not on file documented as of this encounter Miscellaneous Notes * Cerner Conversion Note - Historical ProviderMD - 12/25/2019 5:00 AM CDT Chart Check - Review Order Profile Entered On: 12/25/2019 4:35 EDT Performed On: 12/25/2019 5:00 EDT by Kavita Burrell Lpn Chart Check Powerplans Initiated/Discontinued as Appropriate : Yes All Active Orders Reviewed : Yes Kavita Burrell Lpn - 12/25/2019 4:35 EDT documented in this encounter Plan of Treatment Not on file documented as of this encounter Visit Diagnoses Not on filedocumented in this encounter
--- OUTSIDE RECORDS SUMMARY | 2025-02-23 12:36 | XMS_ITS | Encounter Summary ---
Author Organization [employer] ([place], [place], [place], [place]) Address [address] [place] [address] Care Team Providers Care Cloth Finisher Name Role Phone Unavailable Primary Care Provider Unavailabl e Encounter Details Date Type Department Care Team (Late st Contact Info) Description 12/25/2019 Transcribed Document [facility] [place] [address] [place] [address] ProviderNuha MD [address] [place] [address] Social History Tobacco Use Types Packs/Day Years Used Date Smoking Tobacco: Never Assessed Comments Unknown Sex and Gender Information Value Date Recorded Sex Assigned at Not on file Legal Sex Female 2:42 PM CDT Gender Identity Not on file Sexual Orientation Not on file documented as of this encounter Miscellaneous Notes * Cerner Conversion Note - Historical ProviderMD - 12/25/2019 4:00 PM CDT Patch Check Entered On: 12/25/2019 17:24 EDT Performed On: 12/25/2019 16:00 EDT by Ambar Rai RN Patch Check Patch Check Result : Yes Patch Check - Type of Patch : fentaNYL (Duragesic) Ambar Rai RN - 12/25/2019 17:24 EDT documented in this encounter Plan of Treatment Not on file documented as of this encounter Visit Diagnoses Not on filedocumented in this encounter
--- OUTSIDE RECORDS SUMMARY | 2025-02-23 12:36 | XMS_ITS | Clinical Summary ---
Author Organization [employer] ([place], [place], [place], [place]) Address [address] [place] [address] Care Team Providers Care Manager Style Name Role Phone Unavailable Primary Care Provider [...]
--- OUTSIDE RECORDS SUMMARY | 2025-02-23 12:36 | XMS_ITS | Encounter Summary ---
Author Organization [employer] ([place], [place], [place], [place]) Address [address] [place] [address] Care Team Providers Care Test Center Administrator Name Role Phone Unavailable Primary Care Provider Unavailabl e Encounter Details Date Type Department Care Team (Late st Contact Info) Description 12/28/2019 Transcribed Document [facility] [place] [facility] [address] ProviderNuha MD [address] [place] [address] Social History Tobacco Use Types Packs/Day Years Used Date Smoking Tobacco: Never Assessed Comments Unknown Sex and Gender Information Value Date Recorded Sex Assigned at Not on file Legal Sex Female 2:42 PM CDT Gender Identity Not on file Sexual Orientation Not on file documented as of this encounter Miscellaneous Notes * Cerner Conversion Note - Nuha Daily MD - 12/28/2019 2:35 PM CDT Patient Education Materials Follows: Ileostomy, Care After This sheet gives you [...] these instructions at home: Medicines ??? Take nkoa-iky-qldogoq and prescription medicines only as told by [...] and water are not available, use hand fusing machine feeder. ? Change your dressing as told by [...] You have chest pain. Summary ??? Take bujr-bmb-dtqxdpc and prescription medicines only as told by [...] 06/18/2016 Document Revised: 03/16/2019 Document Reviewed: 03/16/2019 [employer] Patient Education ? 2020 [employer]. Ileostomy Home Guide An ileostomy is a [...] gas release valve. Change your pouch every 3?4 days for the first 6 weeks, and then every 5?7 days after that. You should also change the pouch right away if the skin near the stoma looks irritated. How do I empty my ileostomy pouch? You will be taught how to empty your pouch before you leave the hospital. You may be told to: 1. Wash your hands with soap and water. If soap and water are not available, use hand fusing machine feeder. 2. Sit far back on the toilet. [...] and water are not available, use hand fusing machine feeder. 3. Carefully remove the old pouch. 4. [...] 6. Use the guide to trace the wrangell on the back of the skin barrier [...] wet, you can dry it with a hair assistant on the cool setting. ??? Whenever you [...] 07/10/2004 Document Revised: 06/11/2019 Document Reviewed: 06/11/2019 [employer] Patient Education ? 2020 [employer] Ileostomy Ileostomy is a procedure to permanently [...] including vitamins, herbs, eye drops, creams, and zqpk-ego-ctwhgbq medicines. ??? Any problems you or family [...] tells you to take them. ??? Taking pucw-mfn-efradjy medicines, vitamins, herbs, and supplements. Eating and [...] the procedure ? stop drinking clear liquids. Staying hydrated Follow [...] 06/18/2016 Document Revised: 03/16/2019 Document Reviewed: 03/16/2019 [employer] Patient Education ? 2020 [employer]. documented in this encounter Plan of Treatment Not on file documented as of this encounter Visit Diagnoses Not on filedocumented in this encounter
--- OUTSIDE RECORDS SUMMARY | 2025-02-23 12:36 | XMS_ITS | Encounter Summary ---
Author Organization [employer] ([place], [place], [place], [place]) Address [address] [place] [address] Care Team Providers Care Wellness Instructor Name Role Phone Unavailable Primary Care Provider Unavailabl e Encounter Details Date Type Department Care Team (Late st Contact Info) Description 12/26/2019 Transcribed Document [facility] [place] [address] [place] [address] ProviderNuha MD [address] [place] [address] Social History Tobacco Use Types Packs/Day Years Used Date Smoking Tobacco: Never Assessed Comments Unknown Sex and Gender Information Value Date Recorded Sex Assigned at Not on file Legal Sex Female 2:42 PM CDT Gender Identity Not on file Sexual Orientation Not on file documented as of this encounter Miscellaneous Notes * Cerner Conversion Note - Historical ProviderMD - 12/26/2019 5:00 PM CDT Chart Check - Review Order Profile Entered On: 12/27/2019 17:37 EDT Performed On: 12/26/2019 17:00 EDT by Collin Jackson RN Chart Check Powerplans Initiated/Discontinued as Appropriate : Yes All Active Orders Reviewed : Yes Collin Jackson RN - 12/27/2019 17:37 EDT documented in this encounter Plan of Treatment Not on file documented as of this encounter Visit Diagnoses Not on filedocumented in this encounter
--- OUTSIDE RECORDS SUMMARY | 2025-02-23 12:36 | XMS_ITS | Encounter Summary ---
Author Organization [employer] ([place], [place], [place], [place]) Address [address] [place] [address] Care Team Providers Care Whipped Topping Mixer Name Role Phone Unavailable Primary Care Provider Unavailabl e Encounter Details Date Type Department Care Team (Late st Contact Info) Description 12/22/2019 Transcribed Document [facility] [place] [facility] [place] [address] ProviderNuha MD [address] [place] [address] Social History Tobacco Use Types [...] ProviderMD - 12/22/2019 2:28 PM CDT Evaluation, Occupational Therapy Entered On: 12/23/2019 11:59 EDT Performed On: 12/23/2019 11:07 EDT by TOMMIE MENENDEZ OTR/L General Information, OT Patient Orders : Order Date Order Ordering MD 12/22/2019 14:28 OT Evaluation and Treatment Ordered By: ANNELISE DELCID MD-INT Active Diagnoses : No Qualifying Diagnoses TOMMIE MENENDEZ OTR/Jhon - 12/23/2019 13:16 EDT Therapy Diagnosis, OT : Decline in ADLs s/p colon resection, low anterior. Hx multiple myeloma and chronic pain. Back pain on eval. Onset of Problem, OT : 12/23/2019 EDT TOMMIE MENENDEZ OTR/John - 12/23/2019 13:03 EDT Admission Date : 12/22/2019 06:28 TOMMIE MENENDEZ OTR/John - 12/23/2019 13:16 EDT Co-treated by, OT : Physical Therapist TOMMIE MENENDEZ OTR/John 12/23/2019 13:03 EDT Personal Devices : Personal Devices No Devices Recorded Assistive Devices : Assistive Devices No Devices Recorded TOMMIE MENENDEZ OTR/John - 12/23/2019 13:16 EDT General Information Comment, OT : Decline in ADLs s/p colon resection, low anterior. Hx multiple myeloma and chronic pain. Back pain on eval. TOMMIE MENENDEZ OTR/John 12/23/2019 13:03 EDT Visit Type, OT : Initial evaluation TOMMIE MENENDEZ OTR/John 12/23/2019 11:59 EDT General Status Patient Received Status : Up in chair Treatment Start Time : 12/23/2019 10:20 EDT Patient Left Status : Up in chair, RN/PCT informed, All needs met and within reach RN/PCT Informed Comment : PABLITO mehta Treatment End Time : 12/23/2019 11:07 EDT Treatment Time : 47 Minute(s) TOMMIE MENENDEZ OTR/John 12/23/2019 13:03 EDT History and Environment, OT Living Situation, Therapy : Home Patient Lives With : Spouse Persons Assisting Patient at Home : Alone, Spouse Professional Skilled Services : None Persons Providing Information : Patient Home Equipment, Therapy : Other: Walker, rollator, shower chair, w/c, grabbers on elevated toilet. Home Setup : One story TOMMIE MENENDEZ OTR/John 12/23/2019 13:03 EDT TOMMIE MENENDEZ OTR/John 12/23/2019 13:03 EDT Prior LOF Bed Mobility : Independent Prior LOF Upper Body Dressing, OT : Independent Prior LOF Lower Body Dressing, OT : Independent Prior LOF Toileting : Independent Prior LOF Transfer : Independent Prior LOF Grooming, OT : Independent Prior LOF for IADLs, OT : Independent TOMMIE MENENDEZ OTR/John - 12/23/2019 13:03 EDT Prior LOF Bathing, OT : Assist needed (Comment: Supervision, spouse [TOMMIE MENENDEZ OTR/John 12/23/2019 13:16 EDT] ) TOMMIE MENENDEZ, OTR/L - 12/23/2019 13:16 EDT Prior LOF for IADLs, OT : Pt states she lives home with her spouse. Spouse supervises pt in and out of shower. Pt is MENENDEZBRITTANYTOMMIE R, OTR/L - 12/23/2019 13:03 EDT Upper Extremity Right UE Active ROM : WFL Left UE Active ROM : WFL TOMMIE MENENDEZ, OTR/L - 12/23/2019 13:16 EDT Self Care/Home Management, OT Self Feeding Assist Level, OT : Supervision or set-up Grooming Assist Level, OT : Supervision or set-up Bathing Assist Level, OT : Assist, minimal Upper Body Dressing Assist Level, OT : Supervision or set-up Lower Body Dressing Assist Level, OT : Assist, minimal Toileting Assist Level : Supervision or set-up Toilet Transfer Assist Level : Assist, minimal TOMMIE MENENDEZ, OTR/L - 12/23/2019 13:16 EDT Functional Mobility Mobility Grid Sit to Stand : Rehab Minimal assistance Bed to Chair : Rehab Minimal assistance Stand to Sit : Rehab Minimal assistance TOMMIE MENENDEZ, OTR/L - 12/23/2019 13:16 EDT Cognition Assessment, OT Orientation : Oriented x 4 Cognition Assessment, OT : Intact TOMMIE MENENDEZ, OTR/L - 12/23/2019 13:16 EDT Plan of Care, OT OT Frequency Rehab : Five days per week OT Duration Rehab : Fourteen days OT Treatments Planned : Activities of daily living, Functional mobility training, Safety education, Therapeutic activities, Therapeutic exercises TOMMIE MENENDEZ OTR/L - 12/23/2019 13:16 EDT OT Tx Plan/Goals Established w Patient : Yes SHON TOMMIE R, OTR/L - 12/23/2019 13:03 EDT Snf Goals, OT Grooming LTG Grid Goal #1 Activity : Grooming Assist : Independent, modified Date to Meet : 01/06/2020 EDT Goal Status : Initial goal TOMMIE MENENDEZ, OTR/L - 12/23/2019 13:16 EDT Bathing LTG Grid Goal #1 Activity : Bathing Assist : Independent, modified Date to Meet : 01/06/2020 EDT Goal Status : Initial goal TOMMIE MENENDEZ OTR/John - 12/23/2019 13:16 EDT Dressing, Lower Body LTG Grid Goal #1 Activity : Dressing, Lower Body Assist : Independent, modified Date to Meet : 01/06/2020 EDT Goal Status : Initial goal TOMMIE MENENDEZ OTR/John - 12/23/2019 13:16 EDT Treatment Note Subjective Comment : Agreeable. Pleasant. Has chronic pain due to multiple myeloma. Back pain. Warm blankets helpful. Pt has ostomy bag. Patient's Response to Treatment : Pt responding well. Nursing aid Pat bringing a newsome bin for toilet as 3B has no buckets. Pt up in chair following hallway ambulation with all needs in reach. Additional Objective Information : Pt's catheter leaking (RN found catheter to be out.) Urine leaked on floor and on pt. Pt ambulating to bathroom with Henrik, Rw. Multiple lines to manage. Drain. Tele box. IV. Pt transfered to toilet, toileted, bathed, changed all with Henrik. Floor cleaned. Assessment : Pt will benefit from skilled Ot during this hospital stay. Pt very motivated. Plan for Treatment : see LTGS TOMMIE MENENDEZ OTR/John - 12/23/2019 13:16 EDT Pain Assessment Pain Comment : Chronic back pain. TOMMIE MENENDEZ OTR/John - 12/23/2019 13:16 EDT Image 1 - Images currently included in the form version of this document have not been included in the text rendition version of the form. Anticipated Discharge Needs, OT/PT Anticipated Discharge to : Home, with home health TOMMIE MENENDEZ OTR/John - 12/23/2019 13:16 EDT Junior OT Charges OT Selfcare/Hm Mgmt Ea 15 Min : 2 OT Eval Moderate Complexity : 1 TOMMIE MENENDEZ OTR/John - 12/23/2019 13:03 EDT documented in this encounter Plan of Treatment Not on file documented as of this encounter Visit Diagnoses Not on filedocumented in this encounter
--- OUTSIDE RECORDS SUMMARY | 2025-02-23 12:36 | XMS_ITS | Encounter Summary ---
Author Organization [employer] ([place], [place], [place], [place]) Address [address] [place] [address] Care Team Providers Care Artificial Leather Calender Operator Name Role Phone Unavailable Primary Care Provider Unavailabl e Encounter Details Date Type Department Care Team (Late st Contact Info) Description 12/25/2019 Transcribed Document [facility] [place] [facility] [address] ProviderNuha MD [address] [place] [address] Social History Tobacco Use Types Packs/Day Years Used Date Smoking Tobacco: Never Assessed Comments Unknown Sex and Gender Information Value Date Recorded Sex Assigned at Not on file Legal Sex Female 2:42 PM CDT Gender Identity Not on file Sexual Orientation Not on file documented as of this encounter Miscellaneous Notes * Cerner Conversion Note - Nuha ProviderMD - 12/25/2019 5:41 PM CDT Patient: NATE KRAMER Age: 69 [...] as well Has port for blood draws Review of Systems Constitutional: Weakness, Fatigue, Decreased [...] mg, IntraMuscular, On-CALL, PRN: Anaphylaxis Flonase: 1 Rattan, Nasal, BID Florastor: 250 mg, Oral, Daily, [...] transdermal film, extended release: 1 Patch, Topical, [id number] folic acid: 1 mg, Oral, Daily gabapentin: [...] Oral, Daily Documented Medications Documented Flonase: 1 Rattan, Nasal, BID, 0 Refill(s) Florastor 250 mg [...] oral tablet, extended release: 1 Tab, Oral, [id number], 0 Refill(s) cyanocobalamin: 2,500 mcg, Oral, Daily, 0 Refill(s) fentaNYL 25 mcg/hr transdermal film, extended release: 25 mcg/Hr, Topical, [id number], 0 Refill(s) furosemide: 20 mg, Oral, At [...] BID, 0 Refill(s), Medications (27) Active Scheduled: (16) aspirin 81 [...] mcg/hr 72 hr patch 1 Patch, Topical, [id number] fluticasone 0.05% nasal spray 1 Rattan, Nasal, BID folic acid 1 mg tab [...] list: Medical Allergic rhinitis / SNOMED CT 942682591 / Confirmed Asthma / SNOMED CT 057084605 / Confirmed Back pain / SNOMED CT 4362338098 / Confirmed Back problem//multiple fractures / SNOMED CT 687989765 / Confirmed BBB (bundle branch block)//right / SNOMED CT 30614184 / Confirmed Cataract//extraction / SNOMED CT 931214562 / Confirmed Chronic diarrhea / SNOMED CT 865209150 / Confirmed Difficulty walking//walker / SNOMED CT 3506606724 / Confirmed Dental disorder//bottom teeth extraction//stitches intact / SNOMED CT 0203049601 / Confirmed Dizziness / SNOMED CT 6349904200 / Confirmed Fistula//colon//bladder//vaginia / SNOMED CT 8065634594 / Confirmed Ribs, multiple fractures / SNOMED CT 4249813 / Confirmed GERD - Gastro-esophageal reflux disease / SNOMED CT 3918919542 / Confirmed History of obstructive sleep apnea / IMO 12068436 / Confirmed Hypotension / SNOMED CT 051134556 / Confirmed Skin cancer / SNOMED CT 8009794213 / Confirmed Multiple myeloma / SNOMED CT 365994509 / Confirmed Restless legs syndrome / SNOMED CT 54924142 / Confirmed Sinusitis / SNOMED CT 57734769 / Confirmed Sleep apnea//no machine / SNOMED CT 607849099 / Confirmed Urinary tract infection//jul 2018 / SNOMED CT 747891700 / Confirmed, Active Problems (22) Allergic rhinitis [...] (DEC 24 12:00) 97.9 (DEC 23 18:00) 98.1 (DEC 23 22:40) Mon HR 85 (DEC 24 12:00) 74 (DEC 24 03:15) 121 (DEC 23 22:40) Resp Rate 18 (DEC 24 08:43) 16 (DEC 23 22:00) 18 (DEC 24 06:00) SBP 114 (DEC 24 12:00) 108 (DEC 24 06:00) 131 (DEC 23 22:40) DBP L 46 (DEC 24 12:00) L 41 (DEC 24 06:00) H 98 (DEC 23 22:40) MAP 64 (DEC 24 12:00) 57 (DEC 24 06:00) 103 (DEC 23 22:40) SpO2 98 (DEC 24 08:43) 98 (DEC 23 22:40) 99 (DEC 24 06:00) General: Alert and oriented, No acute distress. Eye: Extraocular movements are intact, Normal conjunctiva. HENT: Normal hearing. Neck: Supple, Non-tender. Respiratory: Lungs are clear to auscultation, Respirations are non-labored. Cardiovascular: Normal rate, Regular rhythm. Gastrointestinal: Soft, Non-tender, Non-distended, ostomy pink. Genitourinary: Exam deferred. Musculoskeletal: Normal range of motion, Normal strength. Integumentary: Warm. Neurologic: Alert. Cognition and Speech: Oriented. Psychiatric: Cooperative, port site OK. Review / Management Results review: Labs (Last four charted values) WBC 6.9 (DEC 05) 7.2 (DEC 04) H 11.8 (DEC 03) 8.6 (DECEMBER 17) HB L 9.4 (CAMACHO 05) L 9.4 (CAMACHO 04) L 8.4 (CAMACHO 04) L 10.0 (DEC 03) HCT L 30.2 (CAMACHO 05) L 29.9 (CAMACHO 04) L 26.4 (CAMACHO 04) L 31.8 (CAMACHO 03) Plt 267 (CAMACHO 05) 208 (CAMACHO 04) 290 (CAMACHO 03) 318 (DECEMBER 17) Na 141 (CAMACHO 05) L 133 (CAMACHO 04) L 132 (CAMACHO 03) L 132 (CAMACHO 03) K 4.0 (CAMACHO 05) 4.2 (CAMACHO 05) 4.4 (CAMACHO 05) 4.6 (CAMACHO 04) Cl 110 (CAMACHO 05) 104 (CAMACHO 04) L 101 (CAMACHO 03) 102 (CAMACHO 03) CO2 24 (CAMACHO 05) 22 (CAMACHO 04) 21 (CAMACHO 03) 24 (CAMACHO 03) BUN 11 (CAMACHO 05) 15 (CAMACHO 04) 15 (DEC 22) 14 (DEC 22) Cr H 1.60 (DEC 05) H 2.00 (DEC 23) H 2.30 (DEC 22) H 2.30 (DEC 22) Glu R 83 (DEC 05) 87 (DEC 23) 99 (DEC 22) 106 (DEC 22) Ca L 8.3 (DEC 24) L 7.9 (DEC 23) 8.6 (DEC 22) 8.4 (DEC 22) PT 10.1 (DEC 22) INR 1.0 (DEC 22) AST 15 (DEC 24) 18 (DEC 23) 29 (DEC 22) 19 (DECEMBER 17) ALT 17 (DEC 24) 18 (DEC 23) 22 (DEC 22) 17 (DECEMBER 17) ALK P 122 (DEC 24) 106 (DEC 23) 115 (DEC 22) H 166 (DECEMBER 17) T Bili 0.2 (DEC 24) 0.2 (DEC 23) 0.6 (DEC 22) 0.4 (DECEMBER 17) PTN L 5.3 (DEC 24) L 4.7 (DEC 23) L 5.0 (DEC 22) 6.7 (DECEMBER 17) ALB L 2.3 (DEC 24) L 2.0 (DEC 23) L 2.2 (DEC 22) L 3.0 (DECEMBER 17) . Impression and Plan - pelvic abscess with ESBL Klebsiella - Multiple Myeloma - IC Host - Colectomy for colovesical and colovaginal fistulas - sulfa allergy - Renal failure - ATN - improving Currently on Merrem, dose good and the right antibiotic PO options available Home soon - on either PO or short course of IV Rx Thanks - will follow Electronically signed by Renay Ribera Conversion Electrical Transmission Engineer Cerner at 11/05/2022 5:57 PM CDT documented in this encounter Plan of Treatment Not on file documented as of this encounter Visit Diagnoses Not on filedocumented in this encounter
--- OUTSIDE RECORDS SUMMARY | 2025-02-23 12:36 | XMS_ITS | Encounter Summary ---
Author Organization [employer] ([place], [place], [place], [place]) Address [address] [place] [address] Care Team Providers Care Strike Operations Officer Name Role Phone Unavailable Primary Care Provider Unavailabl e Encounter Details Date Type Department Care Team (Late st Contact Info) Description 06/01/[address] [facility] [place] [address] [place] [address] ProviderNuha MD [address] [place] [address] Social History Tobacco Use Types Packs/Day Years Used Date Smoking Tobacco: Never Assessed Comments Unknown Sex and Gender Information Value Date Recorded Sex Assigned at Not on file Legal Sex Female 2:42 PM CDT Gender Identity Not on file Sexual Orientation Not on file documented as of this encounter Miscellaneous Notes * Cerner Conversion Note - Historical ProviderMD - 06/01/2020 2:00 AM TURBO GENERATOR OILER Pumping Supervisor Details Entered On: 06/01/2020 0:52 EST Performed On: 06/01/2020 2:00 EST by Dhara Kelly RN Order Details Transport Mode Order Detail : Wheelchair Isolation Precautions Order Detail : Standard Precautions Order Detail : 0 IV Order Detail : 1 Oxygen Order Detail : 0 Nurse Collect Order Detail : 0 Lift/Transfer : Minimal Central Line Order Detail : No Room Service : Appropriate Arterial Line : No Patient Needs Meds Crushed/Liquid : No Dhara Kelly RN - 06/01/2020 0:52 EST documented in this encounter Plan of Treatment Not on file documented as of this encounter Visit Diagnoses Not on filedocumented in this encounter
--- OUTSIDE RECORDS SUMMARY | 2025-02-23 12:36 | XMS_ITS | Encounter Summary ---
Author Organization [employer] ([place], [place], [place], [place]) Address [address] [place] [address] Care Team Providers Care Lead Dental Assistant Name Role Phone Unavailable Primary Care Provider Unavailabl e Encounter Details Date Type Department Care Team (Late st Contact Info) Description 06/01/2020 Transcribed Document [facility] Family Medicine [facility] [place] [address] ProviderNuha MD [address] [place] [address] Social History Tobacco Use Types Packs/Day Years Used Date Smoking Tobacco: Never Assessed Comments Unknown Sex and Gender Information Value Date Recorded Sex Assigned at Not on file Legal Sex Female 2:42 PM CDT Gender Identity Not on file Sexual Orientation Not on file documented as of this encounter Miscellaneous Notes * Cerner Conversion Note - Historical ProviderMD - 06/01/2020 4:00 PM WELDER GAS AUTOMATIC Final Discharge Planning Entered On: 06/03/2020 14:51 EST Performed On: 06/01/2020 16:00 EST by DILMA SLOAN, RN-Bottom Turner Final Discharge Planning Discharge Arrangements : Patient Post-Acute Information Patient Name: NATE KRAMER Gender: Female : [birth year] Age: 69 Years No Post-Acute Placement(s) Listed No Post-Acute Service(s) Listed No [place] Referral(s) Listed Discharge To Care Management : Home Health Services (Related/SOC within 3 days)-06 DILMA SLOAN, RN-Bottom Turner - 06/03/2020 14:50 EST documented in this encounter Plan of Treatment Not on file documented as of this encounter Visit Diagnoses Not on filedocumented in this encounter
--- OUTSIDE RECORDS SUMMARY | 2025-02-23 12:36 | XMS_ITS | Encounter Summary ---
Author Organization [employer] ([place], [place], [place], [place]) Address [address] [place] [address] Care Team Providers Care Internet Project Manager Name Role Phone Unavailable Primary Care Provider Unavailabl e Encounter Details Date Type Department Care Team (Late st Contact Info) Description 05/31/2020 Transcribed Document [facility] [place] [address] [place] [address] ProviderNuha MD [address] [place] [address] Social History Tobacco Use Types Packs/Day Years Used Date Smoking Tobacco: Never Assessed Comments Unknown Sex and Gender Information Value Date Recorded Sex Assigned at Not on file Legal Sex Female 2:42 PM CDT Gender Identity Not on file Sexual Orientation Not on file documented as of this encounter Miscellaneous Notes * Cerner Conversion Note - Historical ProviderMD - 05/31/2020 5:00 PM DRAFTER ELECTROMECHANICAL Chart Check - Review Order Profile Entered On: 05/31/2020 18:58 EST Performed On: 05/31/2020 17:00 EST by MICHELINE MENENDEZ RN Chart Check All Active Orders Reviewed : Yes MICHELINE MENENDEZ RN - 05/31/2020 18:58 EST Electronically signed by Bac[facility] Conversion Dental Technician Instructor Cerner at 11/05/2022 5:55 PM CDT documented in this encounter Plan of Treatment Not on file documented as of this encounter Visit Diagnoses Not on filedocumented in this encounter
--- OUTSIDE RECORDS SUMMARY | 2025-02-23 12:36 | XMS_ITS | Encounter Summary ---
Author Organization [employer] ([place], [place], [place], [place]) Address [address] [place] [address] Care Team Providers Care Community Youth Secretary Name Role Phone Unavailable Primary Care Provider Unavailabl e Encounter Details Date Type Department Care Team (Late st Contact Info) Description 12/25/2019 Transcribed Document [facility] [place] Family Medicine [address] [place] [address] ProviderNuah MD [address] [place] [address] Social History Tobacco Use Types Packs/Day Years Used Date Smoking Tobacco: Never Assessed Comments Unknown Sex and Gender Information Value Date Recorded Sex Assigned at Not on file Legal Sex Female 2:42 PM CDT Gender Identity Not on file Sexual Orientation Not on file documented as of this encounter Miscellaneous Notes * Cerner Conversion Note - Historical ProviderMD - 12/25/2019 5:00 PM CDT Chart Check - Review Order Profile Entered On: 12/25/2019 17:23 EDT Performed On: 12/25/2019 17:00 EDT by Ambar Rai RN Chart Check Powerplans Initiated/Discontinued as Appropriate : Yes All Active Orders Reviewed : Yes Ambar Rai RN - 12/25/2019 17:23 EDT documented in this encounter Plan of Treatment Not on file documented as of this encounter Visit Diagnoses Not on filedocumented in this encounter
--- OUTSIDE RECORDS SUMMARY | 2025-02-23 12:36 | XMS_ITS | Encounter Summary ---
Author Organization [employer] ([place], [place], [place], [place]) Address [address] [place] [address] Care Team Providers Care Metallurgical Analyst Name Role Phone Unavailable Primary Care Provider Unavailabl e Encounter Details Date Type Department Care Team (Late st Contact Info) Description 05/31/2020 Transcribed Document [facility] [place] [address] [place] [address] ProviderNuha MD [address] [place] [address] Social History Tobacco Use Types Packs/Day Years Used Date Smoking Tobacco: Never Assessed Comments Unknown Sex and Gender Information Value Date Recorded Sex Assigned at Not on file Legal Sex Female 2:42 PM CDT Gender Identity Not on file Sexual Orientation Not on file documented as of this encounter Miscellaneous Notes * Cerner Conversion Note - Nuha ProviderMD - 05/31/2020 1:57 PM BOBBIN TRUCKER Initial Discharge Planning Entered On: 05/31/2020 14:01 EST Performed On: 05/31/2020 13:57 EST by ANJELICA LOYA Manager-Care Foster Initial Assessment I Previously Documented Living Environment : No qualifying data available. Living Situation : Home Patient Lives With : Spouse Is the Patient a Caregiver at Home? : No Emergency Contact #1 : Laci Indra Emergency Contact #1 Emergency Contact #1 Relationship : Emergency Contact #2 : none Emergency Contact #2 Phone Number : none Emergency Contact #2 Relationship : none Enter Doctors Name : Dr. Bobby Barajas Does Patient have PCP Listed? : Yes Medical Durable Power of Inspector Watch Parts Name : no Legal Guardian : No Is Guardianship Needed : No ANJELICA LOYA Manager-Care Foster - 05/31/2020 13:57 EST Initial Assessment II Sensory and Motor Deficits : None, Weakness Current Home Treatments and Equipment : Cane, CPAP, Elevated toilet seat, Ostomy care, Shower chair, Walker, Wheelchair ANJELICA LOYA Reactor Fueling Supervisor-Care Management - 05/31/2020 13:57 EST Discharge Needs I Anticipated Discharge Date : 06/02/2020 EST Anticipated Discharge To, CM : Home independently Current Home Treatment/Equipment : Current Home Treatment/Equipment No qualifying data available. Documentation Status Complete : Yes ANJELICA LOYA Manager-Care Management - 05/31/2020 13:57 EST Discharge Needs II Professional Skilled Services : Professional Skilled Services No qualifying data available. ANJELICA LOYA Manager-Care Management - 05/31/2020 13:57 EST Narrative Note Narrative Note : pt came back in for a Ileostomy reversal. She is alert and oriented. 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 pt states well I did have Caretenders she reports that she will have them to come and pick and shovel man their Colostomy supplies. Pt was previously in OBS status in CCU for Life Threatening HyperKalemia. Pt will need close FU with PCP and surgeon office. Pt denies any DC needs. She at the time of eval was nauseated and C/o headache. ANJELICA Carballo Manager-Care Management - 05/31/2020 13:57 EST documented in this encounter Plan of Treatment Not on file documented as of this encounter Visit Diagnoses Not on filedocumented in this encounter
--- OUTSIDE RECORDS SUMMARY | 2025-02-23 12:36 | XMS_ITS | Encounter Summary ---
Author Organization [employer] ([place], [place], [place], [place]) Address [address] [place] [address] Care Team Providers Care Evp Operations Name Role Phone Unavailable Primary Care Provider Unavailabl e Encounter Details Date Type Department Care Team (Late st Contact Info) Description 12/25/2019 Transcribed Document [facility] [place] [address] [place] [address] ProviderNuha MD [address] [place] [address] Social History Tobacco Use Types Packs/Day Years Used Date Smoking Tobacco: Never Assessed Comments Unknown Sex and Gender Information Value Date Recorded Sex Assigned at Not on file Legal Sex Female 2:42 PM CDT Gender Identity Not on file Sexual Orientation Not on file documented as of this encounter Miscellaneous Notes * Cerner Conversion Note - Historical ProviderMD - 12/25/2019 9:45 AM CDT Consult Phone Call Documentation Entered On: 12/25/2019 10:19 EDT Performed On: 12/25/2019 9:45 EDT by JEZ MOODY Phone Call for Consults Consult Phone Call/Page Attempt : Other: spoke to Kati Consult Reason : kleb wound Physician Requesting Consult : ANNELISE DELCID MD-INT Physician Requested for Consult : REMINGTON MCKEON MD-INF Date and Time Call Returned : 12/25/2019 10:18 EDT JEZ MOODY - 12/25/2019 10:18 EDT documented in this encounter Plan of Treatment Not on file documented as of this encounter Visit Diagnoses Not on filedocumented in this encounter
--- OUTSIDE RECORDS SUMMARY | 2025-02-23 12:36 | XMS_ITS | Encounter Summary ---
Author Organization [employer] ([place], [place], [place], [place]) Address [address] [place] [address] Care Team Providers Care Associate Programmer Analyst Name Role Phone Unavailable Primary Care Provider Unavailabl e Encounter Details Date Type Department Care Team (Late st Contact Info) Description 12/28/2019 Transcribed Document [facility] [place] [facility] [place] [address] ProviderNuha MD [address] [place] [address] Social History Tobacco Use Types Packs/Day Years Used Date Smoking Tobacco: Never Assessed Comments Unknown Sex and Gender Information Value Date Recorded Sex Assigned at Not on file Legal Sex Female 2:42 PM CDT Gender Identity Not on file Sexual Orientation Not on file documented as of this encounter Miscellaneous Notes * Cerner Conversion Note - Nuha ProviderMD - 12/28/2019 7:36 AM CDT Patient: NATE KRAMER Age: 69 Years Sex: Female : 1950 Subjective Doing well. Drain came out yesterday without complication. Has some questions about stoma care. 1100mL out/24 hrs. On loperamide BID. Discussed up to 8 loperamide daily to keep some output defects and avoid dehydration. Very high risk for renal failure if she has significant dehydration issues with her ileostomy. She expressed understanding. Kidney function at baseline. Intake & Output Intake & Output Totals Last 24 Hours (7a-7a) Intake (4 Events) Medications (52 mL) Output (13 Events) Coleman Catheter (550 mL) Ostomy Output, Gastrointestinal: (1105 mL) Surgical Drain/Tube Output: (10 mL) Urine Voided (Volume) (1125 mL) Input Total: 52 mL Output Total: 2790 mL Balance: -2738 mL Vital Signs T: 36.8 ??C TMIN: 36.3 ??C TMAX: 36.8 ??C HR: 79(Monitored) RR: 18 BP: 100/50 SpO2: 95% Physical Exam Sitting up in a chair. In good spirits. Incision looks good. Stoma healthy with some watery and some thick output and the appliance. VTE Risk Total Score VTE Prophylaxis - Surgical Aspirin 81 mg, Oral, Tab, At Bedtime, Routine, Start 12/22/19 21:00:00 EDT (ANNELISE DELCID MD-INT) Heparin 5,000 Units, SubCutaneous, Inj, Q8H, Routine, Start 12/23/19 10:44:00 EDT (BHUPENDRA MARISCAL) Sequential Compression Device Start: 12/22/19 14:28:00 EDT, Bilateral, Length: Knee High, While patient is in bed, Continuous Order (ANNELISE DELCID MD-INT) Assessment/Plan Antimicrobials per infectious disease. Okay for home from my standpoint. Follow-up with me in the office in 2 weeks. 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 Orders: Discharge Follow Up Instructions Medications Inpatient aspirin, 81 mg= 1 Tab, Oral, At Bedtime Cipro, 500 mg= 2 Tab, Oral, Q12H Colace, 100 mg= 1 Cap, Oral, BID cyanocobalamin, 1000 mcg= 1 Tab, Oral, Daily diazePAM, 5 mg= 1 Tab, Oral, Q6H, PRN diphenhydrAMINE, 50 mg= 1 mL, IV Push, On-CALL Dulcolax Laxative, 5 mg= 1 Tab, Oral, Daily, PRN Dulera 200 mcg-5 mcg/inh inhalation aerosol, 2 Puff, Inhalation, BID DuoNeb 0.5 mg-2.5 mg/3 mL inhalation solution, 3 mL, Nebulized Inhalation , RT_Q6H, PRN fentaNYL 25 mcg/hr transdermal film, extended release, 1 Patch, Topical, [id number] Flagyl, 500 mg= 1 Tab, Oral, BID Flonase, 1 [place], Nasal, BID Florastor, 250 mg= 1 Cap, Oral, Daily, PRN folic acid, 1 mg= 1 Tab, Oral, Daily gabapentin, 300 mg= 1 Cap, Oral, BID heparin, 5000 Units= 1 mL, SubCutaneous, Q8H INVanz Lidoderm 5% topical film, 1 Patch, TransDermal, Daily loperamide, 2 mg= 1 Cap, Oral, BID Lotrisone 1%-0.05% topical cream, 1 Application, Topical, BID magnesium oxide, 400 mg= 1 Tab, Oral, BID MiraLax, 17 Gram= 1 Packet, Oral, Daily, PRN morphine, 2 mg= 1 mL, IV Push, Q2H, PRN ondansetron, 4 mg= 2 mL, IV Push, Q6H, PRN oxyCODONE, 5 mg= 1 Tab, Oral, Q4H, PRN oxyCODONE, 10 mg= 2 Tab, Oral, Q8H, PRN pantoprazole, 40 mg= 1 Tab, Oral, Daily Wellbutrin XL, 150 mg= 1 Tab, Oral, Daily Home albuterol-ipratropium 2.5 mg-0.5 mg/3 mL inhalation solution, 3 mL, Nebulized Inhalation , Q8H, PRN aspirin, 81 mg, Oral, At Bedtime buPROPion 150 mg/24 hours (XL) oral tablet, extended release, 150 mg= 1 Tab, Oral, [id number] cyanocobalamin, 2500 mcg, Oral, Daily fentaNYL 25 mcg/hr transdermal film, extended release, 25 mcg/Hr, Topical, [id number] Flonase, 1 [place], Nasal, BID Florastor 250 mg oral capsule, 250 mg= 1 Cap, Oral, Daily, PRN furosemide, 40 mg, Oral, Daily furosemide, 20 mg, Oral, At Bedtime gabapentin, 300 mg, Oral, BID K-Dur 10, 90 mEq, Oral, BID Lidoderm, 1 Patch, TransDermal, Daily magnesium oxide, 400 mg, Oral, BID montelukast, 10 mg, Oral, At Bedtime Mucinex 600 mg oral tablet, extended release, 600 mg= 1 Tab, Oral, Q12H nystatin 100,000 units/mL oral suspension, [id number] Units= 4 mL, Oral, QID omeprazole, 40 mg, Oral, Daily ondansetron, 8 mg, Oral, Q8H, PRN oxyCODONE, 10 mg, Oral, Q8H, PRN Promethazine DM 6.25 mg-15 mg/5 mL oral syrup, 5 mL, Oral, Q6H, PRN Proventil HFA 90 mcg/inh inhalation aerosol, 2 Puff, Inhalation, Q4H, PRN rOPINIRole, 0.25 mg, Oral, BID Symbicort 160 mcg-4.5 mcg/inh inhalation aerosol, 2 Puff, Inhalation, BID ZyrTEC-D, 5-120 mg, Oral, Daily Labs Results DEC 27 06:45 136 106 8 / 103 3.9 26 H 1.30 \ DEC 25 06:34 \ L 10.0 / 9.2 279 / L 31.5 \ Anion Gap: 8 Low Calcium Level: 8.8 mg/dL Imaging Results (Last 24 Hours) No Radiology Results Found Problem List/Past Medical History Ongoing Allergic rhinitis [...] colonoscopy, kyphoplasty//x4, left elbow surgery//plates and screws. Allergies meperidine (Hypotension) sulfa drugs (Hives) documented in this encounter Plan of Treatment Not on file documented as of this encounter Visit Diagnoses Not on filedocumented in this encounter
--- OUTSIDE RECORDS SUMMARY | 2025-02-23 12:36 | XMS_ITS | Encounter Summary ---
Author Organization [employer] ([place], [place], [place], [place]) Address [address] [place] [address] Care Team Providers Care Vegetable Farmworker Name Role Phone Unavailable Primary Care Provider Unavailabl e Encounter Details Date Type Department Care Team (Late st Contact Info) Description 12/25/2019 Transcribed Document [facility] [place] [facility] [place] [address] ProviderNuha MD [facility] [place] [address] Social History Tobacco Use Types Packs/Day Years Used Date Smoking Tobacco: Never Assessed Comments Unknown Sex and Gender Information Value Date Recorded Sex Assigned at Not on file Legal Sex Female 2:42 PM CDT Gender Identity Not on file Sexual Orientation Not on file documented as of this encounter Miscellaneous Notes * Cerner Conversion Note - Nuha ProviderMD - 12/25/2019 12:36 PM CDT Patient: NATE KRAMER Age: 69 years Sex: Female : 1950 Associated Diagnoses: None Author: DAVID JUDD MD-NEP Basic Information Patient is feeling much better, she has good appetite at this point, History of Present Illness [ Is an [...] mg, IntraMuscular, On-CALL, PRN: Anaphylaxis Flonase: 1 [place], Nasal, BID Florastor: 250 mg, Oral, Daily, [...] transdermal film, extended release: 1 Patch, Topical, [id number] folic acid: 1 mg, Oral, Daily furosemide: 20 mg, Oral, At Bedtime gabapentin: [...] Oral, Daily Documented Medications Documented Flonase: 1 [place], Nasal, BID, 0 Refill(s) Florastor 250 mg [...] oral tablet, extended release: 1 Tab, Oral, [id number], 0 Refill(s) cyanocobalamin: 2,500 mcg, Oral, Daily, 0 Refill(s) fentaNYL 25 mcg/hr transdermal film, extended release: 25 mcg/Hr, Topical, [id number], 0 Refill(s) furosemide: 20 mg, Oral, At [...] BID, 0 Refill(s), Medications (28) Active Scheduled: (17) aspirin 81 mg chew tab 81 mg [...] mcg/hr 72 hr patch 1 Patch, Topical, [id number] fluticasone 0.05% nasal spray 1 [place], Nasal, BID folic acid 1 mg tab 1 mg 1 Tab, Oral, Daily furosemide 20 mg tab 20 mg 1 [...] list: Medical Allergic rhinitis / SNOMED CT 201237016 / Confirmed Asthma / SNOMED CT 997219845 / Confirmed Back pain / SNOMED CT 3486477909 / Confirmed Back problem//multiple fractures / SNOMED CT 588277557 / Confirmed BBB (bundle branch block)//right / SNOMED CT 41986951 / Confirmed Cataract//extraction / SNOMED CT 164788513 / Confirmed Chronic diarrhea / SNOMED CT 813980318 / Confirmed Difficulty walking//walker / SNOMED CT 9354998796 / Confirmed Dental disorder//bottom teeth extraction//stitches intact / SNOMED CT 2561048687 / Confirmed Dizziness / SNOMED CT 2974099576 / Confirmed Fistula//colon//bladder//vaginia / SNOMED CT 6249033215 / Confirmed Ribs, multiple fractures / SNOMED CT 3846187 / Confirmed GERD - Gastro-esophageal reflux disease / SNOMED CT 2723553984 / Confirmed History of obstructive sleep apnea / IMO 89664992 / Confirmed Hypotension / SNOMED CT 692293201 / Confirmed Skin cancer / SNOMED CT 1827405943 / Confirmed Multiple myeloma / SNOMED CT 894615750 / Confirmed Restless legs syndrome / SNOMED CT 39954115 / Confirmed Sinusitis / SNOMED CT 77856441 / Confirmed Sleep apnea//no machine / SNOMED CT 579018641 / Confirmed Urinary tract infection//jul 2018 / SNOMED CT 912707431 / Confirmed, Active Problems (21) Allergic rhinitis [...] c/section. Comments: 12/18/2019 11:55 EDT - ANTONIO MCDONALD, RN 1974 and 1976 kyphoplasty//x4. left elbow [...] values) WBC 6.9 (DEC 24) 7.2 (DEC 04) H 11.8 (DEC 22) 8.6 (DECEMBER 17) HB L 9.4 (DEC 05) L 9.4 (DEC 04) L 8.4 (DEC 04) L 10.0 (DEC 03) HCT L 30.2 (DEC 05) L 29.9 (DEC 04) L 26.4 (DEC 04) L 31.8 (DEC 03) Plt 267 (DEC 05) 208 (DEC 04) 290 (DEC 03) 318 (DECEMBER 17) Na 141 (DEC 05) L 133 (DEC 04) L 132 (DEC 03) L 132 (DEC 03) K 4.2 (DEC 05) 4.4 (DEC 05) 4.6 (DEC 04) 4.4 (DEC 04) Cl 110 (DEC 05) 104 (DEC 04) L 101 (DEC 03) 102 (DEC 03) CO2 24 (DEC 05) 22 (DEC 04) 21 (DEC 03) 24 (DEC 22) BUN 11 (DEC 05) 15 (DEC 04) 15 (DEC 03) 14 (DEC 22) Cr H 1.60 (DEC 05) H 2.00 (DEC 04) H 2.30 (DEC 03) H 2.30 (DEC 22) Glu R 83 (DEC 05) 87 (DEC 04) 99 (DEC 03) 106 (DEC 22) Ca L 8.3 (DEC 05) L 7.9 (DEC 23) 8.6 (DEC 22) 8.4 (DEC 22) PT 10.1 (DEC 22) INR 1.0 (DEC 22) AST 15 (DEC 24) 18 (DEC 23) 29 (DEC 22) 19 (DECEMBER 17) ALT 17 (DEC 24) 18 (DEC 23) 22 (DEC 22) 17 (DECEMBER 17) ALK P 122 (DEC 05) 106 (DEC 04) 115 (DEC 03) H 166 (DECEMBER 17) T Bili 0.2 (DEC 05) 0.2 (DEC 04) 0.6 (DEC 22) 0.4 (DECEMBER 17) PTN L 5.3 (DEC 05) L 4.7 (DEC 04) L 5.0 (DEC 03) 6.7 (DECEMBER 17) ALB L 2.3 (DEC 05) L 2.0 (DEC 04) L 2.2 (DEC 22) L 3.0 (DECEMBER 17) . No Radiology Results Found Impression and Plan 1. Chronic kidney disease stage III with a baseline serum creatinine 1.4 mg/dL followed up by Dr. Medina in [place]. I will try to get the records from his office. 2. Acute kidney injury most probably secondary to the use of nonsteroidal anti-inflammatories and Alvarez 2 inhibitors and volume depletion secondary to high output ileostomy. I will keep the patient well hydrated. Serum creatinine started to improve. I would avoid diuretics for now. 3. Hyperkalemia secondary to the use of [...] B12 and folates and replenish any deficiencies. The dose of vitamin B-12 reduced to 1000 ??g only and I added folic acid 1 mg daily. 7. Iron deficiency, iron saturation is as low as 12%, she will receive Ferrlecit IV iron supplementation. documented in this encounter Plan of Treatment Not on file documented as of this encounter Visit Diagnoses Not on filedocumented in this encounter
--- OUTSIDE RECORDS SUMMARY | 2025-02-23 12:36 | XMS_ITS | Encounter Summary ---
Author Organization [employer] ([place], [place], [place], [place]) Address [address] [place] [address] Care Team Providers Care Insurance Claims Adjuster Name Role Phone Unavailable Primary Care Provider Unavailabl e Encounter Details Date Type Department Care Team (Late st Contact Info) Description 05/30/2020 Transcribed Document [facility] [place] Family Medicine [address] [place] [address] ProviderNuha MD [address] [place] [address] Social History Tobacco Use Types [...] - Historical ProviderMD - 05/30/2020 2:58 PM REGULATORY AGENCY DIRECTOR Consult Phone Call Documentation Entered On: 06/01/2020 10:11 EST Performed On: 06/01/2020 9:30 EST by Kay Shaffer RN Phone Call for Consults Consult Phone Call/Page Attempt : Other: already seen by jesus 05/31/2020 @ 1915 Consult Reason : for hospitalist for assumption of care and medical management Physician Requested for Consult : ANDRZEJ FLORES MD Provider Service Notified Name : Internal medicine Physician Covering for Consult : AMANDEEP RICHARDSON MD-INT Date and Time Call Returned : 06/01/2020 9:30 EST Kay Shaffer RN - 06/01/2020 10:10 EST Electronically signed by Bacilio [facility] Conversion Drupal Php Developer Cerner at 11/05/2022 6:08 PM CDT documented in this encounter Plan of Treatment Not on file documented as of this encounter Visit Diagnoses Not on filedocumented in this encounter
--- OUTSIDE RECORDS SUMMARY | 2025-02-23 12:36 | XMS_ITS | Encounter Summary ---
Author Organization [employer] ([place], [place], [place], [place]) Address [address] [place] [address] Care Team Providers Care Terrazzo Worker Name Role Phone Unavailable Primary Care Provider Unavailabl e Encounter Details Date Type Department Care Team (Late st Contact Info) Description 12/22/2019 Transcribed Document [facility] [place] [facility] [place] [address] ProviderNuha MD [address] [place] [address] Social History Tobacco Use Types Packs/Day Years Used Date Smoking Tobacco: Never Assessed Comments Unknown Sex and Gender Information Value Date Recorded Sex Assigned at Not on file Legal Sex Female 2:42 PM CDT Gender Identity Not on file Sexual Orientation Not on file documented as of this encounter Miscellaneous Notes * Cerner Conversion Note - Nuha ProviderMD - 12/22/2019 12:16 PM CDT DATE OF PROCEDURE: 12/22/2019 SURGEON: Marilin Decker MD PRIMARY CARE PROVIDER: Dr. Jenn Rosales. UROLOGIST: Dr. Nic Aleman. ONCOLOGIST: Dr. Fernandez Jordan. PREOPERATIVE DIAGNOSES: 1. Colovaginal fistula. 2. Colovesical fistula. 3. Diverticular disease. 4. Partial large bowel obstruction. POSTOPERATIVE DIAGNOSES: 1. Colovaginal fistula. 2. Colovesical fistula. 3. Diverticular disease. 4. Partial large bowel obstruction. 5. Pelvic abscess. PROCEDURES PERFORMED: 1. Open low anterior resection. 2. Left ureterolysis. 3. Drainage of pelvic abscess. 4. Omental pedicle flap. 5. Diverting loop ileostomy. COMPLICATIONS: None. SPECIMENS: 1. Rectosigmoid colon. 2. Pelvic abscess culture. ESTIMATED BLOOS LOSS: 100 mL. INDICATION FOR PROCEDURE: Salima is a 69-year-old female, I have known for a while with a colovaginal fistula. She has had recurrent urinary tract infection as well. Complete endoscopic evaluation of the colon could not be completed due to stricturing from diverticular disease presumably. She is undergoing treatment for multiple myeloma and has had multiple health problems since I have met her. She has finally recovered from quite a few of her ailments and appeared overall to be in the best else that I have known her to be and desired to proceed with definitive management for her fistula. Risks, benefits, and alternatives of surgical intervention were discussed with the patient and her family on multiple occasions and reviewed in the preoperative area today. Coordination for her Revlimid dosing was also done with Dr. Jordan's office. PROCEDURE IN DETAIL: Salima was brought to the operating room, placed in the supine position. After successful induction of general endotracheal anesthesia. She was placed in a low lithotomy position in [facility]. Dr. Bernard performed cystoscopy with left ureteral catheter, which will be dictated separately. A low midline incision was made. There were no complications upon entering the abdomen. There were some filmy adhesions of the omentum to the prior incision and some adhesions in the area of the appendix that were taken down. There was clearly fibrotic area of the sigmoid colon to the bladder and the vaginal cuff. The left colon was taken down at the line of Toldt up to phlegmon. Dissection planes were not friendly. I then identified and isolated the LINETTE pedicle, make sure that the ureteral catheter was out of the plane of dissection. I doubly clamped this and ligated it with first [address]-1 and then another tie. There was some residual bleeding, which was controlled with ties. I was then able to get into the avascular plane behind the LINETTE down into the pelvis and then work from posterior and anteriorly to isolate the pathology. At one point, I entered what appeared to be a chronic abscess cavity near the vaginal cuff. I did send cultures there. Tedious dissection was required to get these fistulas taken down and I had to identify and dissect out the left ureter as it was all encumbered in this process as well. Once I got all that freed up, I came across the mid to high rectum, below the sacral promontory with a contour stapler. The descending colon was transected using a pursestring clamp and a Lawrence was placed as well as a pursestring suture. The bowel was resected from the Lawrence clamp and passed off the field. The anvil was placed in the proximal bowel. The 28 mm circular stapler was used for the anastomosis. The Sizer was placed in the vagina to keep the vaginal cuff out of the anastomosis and the stapler was placed through the rectum. The spike was brought out through the transverse staple line. The anvil and the spike were . The stapler was closed, fired, and removed from the rectum. The anastomosis was then placed under saline irrigation and proximally occluded. Rigid proctoscopy was then performed and was found to be hemostatic airtight and circumferentially intact. The pelvis was irrigated. A 10 flat HERNESTO drain was placed in the pelvis and brought out through the left mid abdomen. The LigaSure was used to create an omental pedicle flap off the transverse colon. The omentum was placed into the pelvis. The small bowel was then run from the ligament of Treitz to the ligament of Treves. The location that was marked by the ostomy nurses' preoperatively was used. A muscle-splitting incision was made in the right mid abdomen. The loop of ileum was brought up about 20 cm proximal to the ileocecal valve without tension. The ostomy arpan was placed. The bowel was healthy and pink appearing. The fascia was then closed with running #1 non-looped PDS x2. Seprafilm had been placed around the ileum and underneath the incision to help prevent adhesions and facilitate ileostomy takedown in the future. The wound was irrigated with Betadine. Mic's was closed with interrupted Vicryl. Monocryl was used to close the skin. Prineo Dermabond dressing was applied. All counts were announced as correct at the end of the case. The patient tolerated the procedure well, was extubated in the operating room, transferred to recovery in stable condition. /[id number] Marilin Decker MD JR/AQ / / MODL /[id number] CC: Dr. Nic Jordan Electronically signed by Bacilio, [facility] Conversion Germ Drier Cerner at 11/05/2022 5:54 PM CDT documented in this encounter Plan of Treatment Not on file documented as of this encounter Visit Diagnoses Not on filedocumented in this encounter
--- OUTSIDE RECORDS SUMMARY | 2025-02-23 12:36 | XMS_ITS | Encounter Summary ---
Author Organization [employer] ([place], [place], [place], [place]) Address [address] [place] [address] Care Team Providers Care Dyeing Machine Back Tender Name Role Phone Unavailable Primary Care Provider Unavailabl e Encounter Details Date Type Department Care Team (Late st Contact Info) Description 05/31/2020 Transcribed Document [facility] [place] [address] [place] [address] ProviderNuha MD [address] [place], [place] [id number] Social History Tobacco Use Types Packs/Day Years Used Date Smoking Tobacco: Never Assessed Comments Unknown Sex and Gender Information Value Date Recorded Sex Assigned at Not on file Legal Sex Female 2:42 PM CDT Gender Identity Not on file Sexual Orientation Not on file documented as of this encounter Miscellaneous Notes * Cerner Conversion Note - Historical ProviderMD - 05/31/2020 11:35 AM TELEPHONE DIAPHRAGM ASSEMBLER UM Authorization Entered On: 05/31/2020 11:35 EST Performed On: 05/31/2020 11:35 EST by MARY RAMOS RN Primary Insurance Authorization Authorization and Policy Numbers : Insurance 1 Health Plan: MEDICARE Policy Number: [id number] Authorization Number: Insurance 2 Health Plan: [employer] Medicare Supplement Policy Number: [id number] Authorization Number: NPR Insurance Primary Name : MEDICARE Policy Number: [id number] Authorized Service Begin Date-Primary : 05/30/2020 EST Historical Authorization Comments-Primary : No Authorization Comments Found MARY RAMOS RN - 05/31/2020 11:35 EST documented in this encounter Plan of Treatment Not on file documented as of this encounter Visit Diagnoses Not on filedocumented in this encounter
--- OUTSIDE RECORDS SUMMARY | 2025-02-23 12:36 | XMS_ITS | Encounter Summary ---
Author Organization [email or web address] ([place], [place], [place], [place]) Address [address] [place] [address] Care Team Providers Care Sheet Fed Printer Name Role Phone Unavailable Primary Care Provider Unavailabl e Encounter Details Date Type Department Care Team (Late st Contact Info) Description 05/30/[address] [facility] [place] Family Medicine [address] [place] [address] ProviderNuha MD [address] [place] [address] Social History Tobacco Use Types Packs/Day Years Used Date Smoking Tobacco: Never Assessed Comments Unknown Sex and Gender Information Value Date Recorded Sex Assigned at Not on file Legal Sex Female 2:42 PM CDT Gender Identity Not on file Sexual Orientation Not on file documented as of this encounter Miscellaneous Notes * Cerner Conversion Note - Historical ProviderMD - 05/30/2020 6:00 PM INSIDE SALES TRAINER Pain Assessment Entered On: 05/31/2020 3:19 EST Performed On: 05/30/2020 21:30 EST by Dhara Kelly RN Intervention Information: acetaminophen Performed by Dhara Kelly RN on 05/30/2020 20:30:00 EST acetaminophen,1000mg Oral Pain Assessment Pain Assessment [...]
--- OUTSIDE RECORDS SUMMARY | 2025-02-23 12:36 | XMS_ITS | Encounter Summary ---
Author Organization [employer] ([place], [place], [place], [place]) Address [address] [place] [address] Care Team Providers Care Neck Pinner Name Role Phone Unavailable Primary Care Provider Unavailabl e Encounter Details Date Type Department Care Team (Late st Contact Info) Description 05/31/2020 Transcribed Document [facility] [place] Family Medicine [address] [place] [address] ProviderNuha MD [address] [place] [address] Social History Tobacco Use Types Packs/Day Years Used Date Smoking Tobacco: Never Assessed Comments Unknown Sex and Gender Information Value Date Recorded Sex Assigned at Not on file Legal Sex Female 2:42 PM CDT Gender Identity Not on file Sexual Orientation Not on file documented as of this encounter Miscellaneous Notes * [employer]ner Conversion Note - Historical ProviderMD - 05/31/2020 2:00 AM HEDIS ABSTRACTOR Research Assistant Professor Details Entered On: 05/31/2020 3:19 EST Performed On: 05/31/2020 2:00 EST by Dhara Kelly RN Order [...] Crushed/Liquid : No Dhara Kelly RN - 05/31/2020 3:19 EST documented in this encounter Plan of Treatment Not on file documented as of this encounter Visit Diagnoses Not on filedocumented in this encounter
[2025-02-23 13:25] VITALS: PULSE 72; PULSE 73
[2025-02-23] MEDS: ALBUTEROL 0.083% 2.5 MG/3 ML NEB IH (13:25)
== END 2025-02-23 23:59 | disposition home or self-care (01) ==
LOC: RT 12:31
PROVIDERS: PCP Family Medicine; Visit Provider Internal Medicine Pulmonary Disease
DX: R06.09 Other forms of dyspnea (principal); R06.02 Shortness of breath
CPT/HCPCS: 94010; 94618; 94640